=== PATIENT | male | born 1940 | race Caucasian/White ===

== ENCOUNTER → 2017-05-02 07:46 | Outpatient (CLI) | payer MEDICARE, SELFPAY ==
[2017-05-02 08:39] LABS: AST(SGOT) 20 U/L (15-37); Alanine Aminotransfer ALT/SGPT 21 U/L (16-61); Albumin, Serum 3.5 g/dL (3.2-5.0); Alkaline Phosphatase 74 U/L (45-117); Bilirubin, Direct 0.33 mg/dL (0.00-0.30); Cholesterol 150 mg/dL (200); Globulin 3.5 g/dL (2.2-4.2); High Density Lipoprotein 48 mg/dL; Triglycerides 180 mg/dL; Very Low Density Lipoprotein 36 mg/dL (5-40)
== END ==
PROVIDERS: Family Provider Internal Medicine; PCP Internal Medicine; Visit Provider Internal Medicine Cardiovascular Disease
DX: E78.5 Hyperlipidemia, unspecified (principal); Z79.899 Other long term (current) drug therapy
CPT/HCPCS: 36415; 80061; 80076

== ENCOUNTER → 2017-11-13 07:31 | Outpatient (CLI) | payer MEDICARE, SELFPAY ==
[2017-11-13 09:10] LABS: AST(SGOT) 18 U/L (15-37); Alanine Aminotransfer ALT/SGPT 20 U/L (16-61); Albumin, Serum 3.4 g/dL (3.2-5.0); Alkaline Phosphatase 71 U/L (45-117); Cholesterol 145 mg/dL (200); Globulin 3.4 g/dL (2.2-4.2); High Density Lipoprotein 45 mg/dL; Protein, Total 6.8 g/dL (6.4-8.2); Triglycerides 236 mg/dL; Very Low Density Lipoprotein 47 mg/dL (5-40)
== END ==
PROVIDERS: Family Provider Internal Medicine; PCP Internal Medicine; Visit Provider Internal Medicine Cardiovascular Disease
DX: E78.5 Hyperlipidemia, unspecified (principal); Z79.899 Other long term (current) drug therapy
CPT/HCPCS: 36415; 80061; 80076

== ENCOUNTER → 2018-05-08 06:22 | Outpatient (CLI) | payer MEDICARE, SELFPAY ==
[2017-11-16 09:08] VITALS: BMI 27.4
[2018-05-08 08:46] LABS: AST(SGOT) 21 U/L (15-37); Alanine Aminotransfer ALT/SGPT 22 U/L (16-61); Albumin, Serum 3.6 g/dL (3.2-5.0); Alkaline Phosphatase 71 U/L (45-117); Bilirubin, Direct 0.34 mg/dL (0.00-0.30); Cholesterol 142 mg/dL (200); Globulin 3.5 g/dL (2.2-4.2); High Density Lipoprotein 46 mg/dL; Protein, Total 7.1 g/dL (6.4-8.2); Triglycerides 159 mg/dL; Very Low Density Lipoprotein 32 mg/dL (5-40)
== END ==
PROVIDERS: Family Provider Internal Medicine; PCP Internal Medicine; Referring Provider Internal Medicine Cardiovascular Disease; Visit Provider Internal Medicine Cardiovascular Disease
DX: E78.5 Hyperlipidemia, unspecified (principal)
CPT/HCPCS: 36415; 80061; 80076

== ENCOUNTER → 2018-11-12 | Outpatient (CLI) | payer MEDICARE, SELFPAY ==
[2017-11-16 09:08] VITALS: BMI 27.4
[2018-11-12 07:44] LABS: AST(SGOT) 25 U/L (15-37); Alanine Aminotransfer ALT/SGPT 23 U/L (16-61); Albumin, Serum 3.4 g/dL (3.2-5.0); Alkaline Phosphatase 69 U/L (45-117); Bilirubin, Direct 0.31 mg/dL (0.00-0.30); Cholesterol 139 mg/dL (200); Globulin 3.4 g/dL (2.2-4.2); High Density Lipoprotein 48 mg/dL; Protein, Total 6.8 g/dL (6.4-8.2); Triglycerides 160 mg/dL; Very Low Density Lipoprotein 32 mg/dL (5-40)
== END | disposition home or self-care (01) ==
LOC: LAB 06:19
PROVIDERS: Family Provider Internal Medicine; PCP Internal Medicine; Referring Provider Internal Medicine Cardiovascular Disease; Visit Provider Internal Medicine Cardiovascular Disease
DX: E78.5 Hyperlipidemia, unspecified (principal)
CPT/HCPCS: 36415; 80061; 80076

== ENCOUNTER → 2019-11-14 06:47 | Outpatient (CLI) | payer MEDICARE, SELFPAY ==
[2018-11-20 08:53] VITALS: BMI 26.9
[2019-11-14 07:50] LABS: AST(SGOT) 21 U/L (15-37); Alanine Aminotransfer ALT/SGPT 20 U/L (16-61); Albumin, Serum 3.6 g/dL (3.2-5.0); Alkaline Phosphatase 69 U/L (45-117); Bilirubin, Direct 0.36 mg/dL (0.00-0.30); Cholesterol 140 mg/dL (200); Globulin 3.3 g/dL (2.2-4.2); High Density Lipoprotein 48 mg/dL; Protein, Total 6.9 g/dL (6.4-8.2); Triglycerides 153 mg/dL; Very Low Density Lipoprotein 31 mg/dL (5-40)
== END ==
PROVIDERS: PCP Internal Medicine; Referring Provider Internal Medicine Cardiovascular Disease; Visit Provider Internal Medicine Cardiovascular Disease
DX: E78.5 Hyperlipidemia, unspecified (principal); E78.00 Pure hypercholesterolemia, unspecified
CPT/HCPCS: 36415; 80061; 80076

== ENCOUNTER 2020-04-16 13:11 | Outpatient (RCR) | payer MEDICARE, SELFPAY ==
[2019-11-21 08:51] VITALS: BMI 26.2
== END 2020-04-16 23:59 ==
LOC: IMMUN 13:11
PROVIDERS: PCP Internal Medicine; Visit Provider Family Medicine
DX: Z23 Encounter for immunization (principal)
CPT/HCPCS: 0011A; 0012A; 91301

== ENCOUNTER → 2020-06-03 07:03 | Outpatient (CLI) | payer MEDICARE, SELFPAY ==
[2019-11-21 08:51] VITALS: BMI 26.2
[2020-06-03 08:21] LABS: AST(SGOT) 24 U/L (15-37); Alanine Aminotransfer ALT/SGPT 22 U/L (16-61); Albumin, Serum 3.6 g/dL (3.2-5.0); Alkaline Phosphatase 70 U/L (45-117); Bilirubin, Direct 0.38 mg/dL (0.00-0.30); Cholesterol 154 mg/dL (200); Globulin 3.3 g/dL (2.2-4.2); High Density Lipoprotein 55 mg/dL; Protein, Total 6.9 g/dL (6.4-8.2); Triglycerides 152 mg/dL; Very Low Density Lipoprotein 30 mg/dL (5-40)
== END ==
PROVIDERS: PCP Internal Medicine; Referring Provider Internal Medicine Cardiovascular Disease; Visit Provider Internal Medicine Cardiovascular Disease
DX: E78.5 Hyperlipidemia, unspecified (principal); E78.00 Pure hypercholesterolemia, unspecified
CPT/HCPCS: 36415; 80061; 80076

== ENCOUNTER → 2020-12-23 06:37 | Outpatient (CLI) | payer MEDICARE, SELFPAY ==
[2020-12-23 07:16] LABS: AST(SGOT) 21 U/L (15-37); Alanine Aminotransfer ALT/SGPT 22 U/L (16-61); Albumin, Serum 3.4 g/dL (3.2-5.0); Alkaline Phosphatase 72 U/L (45-117); Cholesterol 142 mg/dL (200); Globulin 3.6 g/dL (2.2-4.2); High Density Lipoprotein 53 mg/dL; Triglycerides 117 mg/dL; Very Low Density Lipoprotein 23 mg/dL (5-40)
== END ==
PROVIDERS: PCP Internal Medicine; Referring Provider Internal Medicine Cardiovascular Disease; Visit Provider Internal Medicine Cardiovascular Disease
DX: E78.00 Pure hypercholesterolemia, unspecified (principal); E78.5 Hyperlipidemia, unspecified
CPT/HCPCS: 36415; 80061; 80076

== ENCOUNTER 2021-07-01 06:17 | Outpatient (CLI) | payer MEDICARE, SELFPAY ==
[2021-07-01 07:37] LABS: AST(SGOT) 23 U/L (15-37); Alanine Aminotransfer ALT/SGPT 20 U/L (16-61); Albumin, Serum 3.6 g/dL (3.2-5.0); Alkaline Phosphatase 68 U/L (45-117); Bilirubin, Direct 0.31 mg/dL (0.00-0.30); Cholesterol 151 mg/dL (200); Globulin 3.6 g/dL (2.2-4.2); High Density Lipoprotein 48 mg/dL; Protein, Total 7.2 g/dL (6.4-8.2); Triglycerides 156 mg/dL; Very Low Density Lipoprotein 31 mg/dL (5-40)
== END 2021-07-01 23:59 | disposition home or self-care (01) ==
LOC: LAB 06:19
PROVIDERS: PCP Internal Medicine; Referring Provider Internal Medicine Cardiovascular Disease; Visit Provider Internal Medicine Cardiovascular Disease
DX: E78.00 Pure hypercholesterolemia, unspecified (principal); E78.5 Hyperlipidemia, unspecified
CPT/HCPCS: 36415; 80061; 80076

== ENCOUNTER → 2021-12-23 | Outpatient (CLI) | payer MEDICARE, SELFPAY ==
[2021-12-23 07:42] LABS: AST(SGOT) 19 U/L (15-37); Alanine Aminotransfer ALT/SGPT 20 U/L (16-61); Albumin, Serum 3.4 g/dL (3.2-5.0); Alkaline Phosphatase 63 U/L (45-117); Bilirubin, Direct 0.29 mg/dL (0.00-0.30); Cholesterol 144 mg/dL (200); Globulin 3.5 g/dL (2.2-4.2); High Density Lipoprotein 49 mg/dL; Protein, Total 6.9 g/dL (6.4-8.2); Triglycerides 164 mg/dL; Very Low Density Lipoprotein 33 mg/dL (5-40)
== END | disposition home or self-care (01) ==
LOC: LAB 06:54
PROVIDERS: PCP Internal Medicine; Referring Provider Internal Medicine Cardiovascular Disease; Visit Provider Internal Medicine Cardiovascular Disease
DX: E78.00 Pure hypercholesterolemia, unspecified (principal)
CPT/HCPCS: 36415; 80061; 80076

== ENCOUNTER → 2022-01-18 | Outpatient (CLI) | payer MEDICARE, SELFPAY ==
--- NOTE | 2022-01-18 17:02 | STRESSREP_ITS ---
Stress Test Report Exercise myocardial perfusion stress test. 81-year-old man with a history of coronary artery disease. Stress protocol: Resting EKG demonstrates normal sinus rhythm with a right bundle branch block pattern. Rate of 70 bpm is noted. Resting blood pressure is 122/68 mmHg. Patient exercised according to the regular Renan protocol for total duration of 7 minutes. Patient completed 1 minute into stage III of the Renan protocol the maximum heart rate attained was 148 bpm which was 108% of max impacted heart rate the maximum workload was 10.1 metabolic equivalents. The test was terminated due to the target heart rate being achieved. At rest there were no ST changes noted to suggest ischemia at peak exercise upsloping ST changes approximately 0.7 mm were noted in the inferior lateral leads not denoting any evidence of ischemia. The peak blood pressure was 148/60 mmHg with a rate- pressure product of 20,500. Myocardial perfusion protocol. 14.5 mCi of technetium 99m sestamibi was injected at rest. The patient exercised according to regular Renan protocol for 7 minutes and at peak exercise 44.1 mCi of technetium 99m sestamibi was injected stress images were obtained stress and rest images were reconstructed and compared in the short axis vertical long and horizontal long axis. Gated images were also obtained. Perfusion SPECT analysis: Review of the stress images demonstrate normal uptake of tracer noted in all areas of the myocardium. The resting images similar demonstrate normal uptake of tracer noted in all areas of the myocardium no areas of reversibility are noted to suggest ischemia and no previous infarct is noted. Gated SPECT analysis: The gated ejection fraction is noted to be 78%. Conclusion: Normal exercise myocardial perfusion stress test at a high workload. Excellent functional capacity. Preserved ejection fraction.
== END | disposition home or self-care (01) ==
LOC: CVS 06:52
PROVIDERS: PCP Internal Medicine; Referring Provider Internal Medicine Cardiovascular Disease; Visit Provider Internal Medicine Cardiovascular Disease
DX: I25.10 Atherosclerotic heart disease of native coronary artery without angina pectoris (principal)
CPT/HCPCS: 78452; 93017; A9500; A4216

== ENCOUNTER → 2022-07-20 | Outpatient (CLI) | payer MEDICARE, SELFPAY ==
[2022-07-20 08:04] LABS: AST(SGOT) 21 U/L (15-37); Alanine Aminotransfer ALT/SGPT 20 U/L (16-61); Albumin, Serum 3.4 g/dL (3.2-5.0); Alkaline Phosphatase 66 U/L (45-117); Cholesterol 132 mg/dL (200); Globulin 3.3 g/dL (2.2-4.2); High Density Lipoprotein 46 mg/dL; Protein, Total 6.7 g/dL (6.4-8.2); Triglycerides 126 mg/dL; Very Low Density Lipoprotein 25 mg/dL (5-40)
== END | disposition home or self-care (01) ==
LOC: LAB 06:33
PROVIDERS: PCP Internal Medicine; Referring Provider Internal Medicine Cardiovascular Disease; Visit Provider Internal Medicine Cardiovascular Disease
DX: E78.00 Pure hypercholesterolemia, unspecified (principal)
CPT/HCPCS: 36415; 80061; 80076

== ENCOUNTER 2022-08-08 15:50 | Emergency (ER) | payer MEDICARE, SELFPAY ==
[2022-08-08 15:52] VITALS: BP 145/67; PULSE 81; RESP 14; TEMP 36.4; O2SAT 93; BMI 25.6
--- NOTE | 2022-08-08 15:58 | EX.ED.DYSGE1 ---
HPI History of Present Illness Chief Complaint: Nosebleed [facility] Medical History Atherosclerosis of coronary artery of [place] heart without angina pectoris Essential (primary) hypertension History of non-ST elevation myocardial infarction (NSTEMI) (04/24/12) HLD (hyperlipidemia) Home Medications aspirin 81 mg tablet,delayed release 81 mg PO DAILY 05/18/16 [History Last Taken Unknown] hydrochlorothiazide 12.5 mg capsule 12.5 mg PO DAILY 05/18/16 [History Last Taken Unknown] lisinopril 5 mg tablet 5 mg PO DAILY 05/18/16 [History Last Taken Unknown] omeprazole magnesium 20 mg tablet,delayed release 20 mg PO DAILY 05/18/16 [History Last Taken Unknown] fexofenadine 180 mg tablet (Allergy Relief (fexofenadine)) 180 mg PO DAILY 11/16/17 [History Last Taken Unknown] gabapentin 300 mg capsule 300 mg PO DAILY 11/16/17 [History Last Taken Unknown] tamsulosin 0.4 mg capsule 0.4 mg PO DAILY #90 caps 11/20/18 [History Last Taken Unknown] alpha lipoic acid 50 mg capsule 50 mg PO DAILY 11/21/19 [History Last Taken Unknown] glucosamine sulfate 500 mg tablet (Glucosamine) 1,000 mg PO DAILY 11/21/19 [History Last Taken Unknown] multivitamin 1 tab PO DAILY 11/21/19 [History Last Taken Unknown] sildenafil (pulm.hypertension) 20 mg tablet 20 mg PO DAILY PRN 11/21/19 [History Last Taken Unknown] antiarthritic combination no.2 900 mg tablet (glucosamine-chondroitin) 900 mg PO DAILY 12/31/20 [History Last Taken Unknown] nitroglycerin 0.4 mg sublingual tablet 0.4 mg sublingual Q5-15M #25 tabs 10/26/21 [Rx Last Taken Unknown] fluticasone propionate 50 mcg/actuation nasal spray,suspension 2 spray intranasal DAILY PRN 12/30/21 [History Last Taken Unknown] omeprazole 20 mg capsule,delayed release 20 mg PO DAILY 12/30/21 [History Last Taken Unknown] clopidogrel 75 mg tablet See Rx Instructions .Route .COMPLEX #90 tabs 02/21/22 [Rx Last Taken Unknown] pravastatin 40 mg tablet See Rx Instructions .Route .COMPLEX #90 tabs 02/21/22 [Rx Last Taken Unknown] metoprolol tartrate 50 mg tablet 50 mg PO BID #180 tabs 04/28/22 [Rx Last Taken Unknown] Allergy/AdvReac Type Severity Reaction Status Date / Time cat dander Allergy Anaphylaxis Verified 08/08/22 15:53 tree and shrub pollen Allergy Shortness Verified 08/08/22 15:53 of breath Family History Sister Diabetes Surgical History History of coronary artery stent placement (04/24/12) Social History Smoking Status: Never smoker EXAM Physical Exam Const Vital Signs: 08/08/22 15:52 08/08/22 16:58 Temperature 97.5 F L Temperature Source Temporal Pulse Rate 81 79 Respiratory Rate 14 16 Blood Pressure 145/67 H 142/64 H Blood Pressure Mean 93 90 Pulse Ox 93 97 Oxygen Delivery Method Room Air Room Air [facility] Narrative Medical decision making narrative: HISTORY OF PRESENT ILLNESS: 82-year-old male here for epistaxis. The patient states this started 1 hour ago. States on aspirin and Plavix. He further states he tried to hold pressure without success. REVIEW OF SYSTEMS: Pertinent positives: Epistaxis Pertinent negatives: Dizziness, lightheadedness, chest pain, fatigue PHYSICAL EXAM: Nursing triage notes reviewed, Vital signs reviewed Constitutional: please see [facility] HENT: MMM, profuse bleeding noted from the left nares. No bleeding noted from the right nares. No obvious clots in the back of the throat. Eyes: Pupils equal round and reactive to light, Extraocular muscles intact Neck: No stridor, no JVD, full neck ROM Lungs: Clear to auscultation, No wheezing or rales. No increased work of breathing, no conversational dyspnea, no accessory muscle use, no nasal flaring. No respiratory distress noted Heart: Regular rate and rhythm, No murmurs, No rubs and No gallops, 2+ distal pulses (radial, femoral, posterior tibial) in all extremities MEDICAL DECISION MAKING: Chief Complaint: Epistaxis External records reviewed: On aspirin and Plavix, last hemoglobin 15.[address] [facility] Narrative: Patient was initially hemodynamically stable, afebrile, nontoxic-appearing. Initially tried to hold pressure for 10 minutes along with nasal suctioning. This failed. Attempt to apply Afrin which failed. I then applied a Rhino Rocket with successful hemostasis. CBC was checked given history of CAD. CBC showed no evidence of anemia I called our local [employer] Dr. Esteban who agreed he can see the patient on , 08/11/2022. Patient was given follow-up instructions and return precautions. Factors affecting care: History of hypertension, hyperlipidemia, CAD on aspirin Plavix Social determinants of health: Elderly History obtained from others: The patient's Shared decision making: I will have a discussion with the patient and or visitors regarding risk/benefits of further testing or admission. They will be made aware of of the risk/benefits inherent in this decision they will be given the opportunity to voice understanding. Consults: Otolaryngology Lab Data Attestation: I reviewed the patient's lab results. Lab results narrative: CBC with leukocytosis suggestive of systemic inflammation, no anemia, no thrombocytopenia. Labs: Laboratory Results - last 24 hr 08/08/22 16:55 WBC 12.0 H RBC 4.69 Hgb 15.2 Hct 44.1 MCV 94.0 MCH 32.4 H MCHC 34.5 RDW Std Deviation 42.5 RDW Coeff of Rachel 12.4 Plt Count 166 MPV 12.0 Immature Gran % (Auto) 0.200 Neut % (Auto) 79.5 H Lymph % (Auto) 13.2 L [place] % (Auto) 4.8 Eos % (Auto) 1.7 Baso % (Auto) 0.6 Absolute Neuts (auto) 9.5 H Absolute Lymphs (auto) 1.58 Nucleated RBC % 0 Discharge Plan Triage Chief Complaint: Nosebleed ED Provider: Nestor Jackson Dx/Rx/DC Orders Clinical Impression: Epistaxis, Adverse effect of antiplatelet agent Prescriptions: No Action fexofenadine [Allergy Relief (fexofenadine)] 180 mg tablet 180 mg PO DAILY gabapentin 300 mg capsule 300 mg PO DAILY tamsulosin 0.4 mg capsule 0.4 mg PO DAILY Qty: 90 sildenafil (pulm.hypertension) 20 mg tablet 20 mg PO DAILY PRN Label Comments: take 2 to 3 tablets by mouth once daily if needed multivitamin Tablet 1 tab PO DAILY alpha lipoic acid 50 mg capsule 50 mg PO DAILY glucosamine sulfate [Glucosamine] 500 mg tablet 1,000 mg PO DAILY Rx Instructions: administer with meals glucosamine-chondroitin 900 mg tablet 900 mg PO DAILY omeprazole 20 mg capsule,delayed release(DR/EC) 20 mg PO DAILY fluticasone propionate 50 mcg/actuation spray,suspension 2 spray intranasal DAILY PRN aspirin 81 MG tablet,delayed release (DR/EC) 81 mg PO DAILY Label Comments: heart health hydrochlorothiazide 12.5 MG capsule 12.5 mg PO DAILY Label Comments: water pill/diuretic lisinopril 5 MG tablet 5 mg PO DAILY Label Comments: blood pressure omeprazole magnesium 20 MG tablet,delayed release (DR/EC) 20 mg PO DAILY Label Comments: acid reflux nitroglycerin 0.4 mg tablet, sublingual 0.4 mg SUBLINGUAL Q5-15M Qty: 25 3RF pravastatin 40 mg tablet See Rx Instructions .ROUTE .COMPLEX Qty: 90 3RF Dose Instruction: TAKE 1 TABLET AT BEDTIME Rx Instructions: TAKE 1 TABLET AT BEDTIME clopidogrel 75 mg tablet See Rx Instructions .ROUTE .COMPLEX Qty: 90 3RF Dose Instruction: TAKE 1 TABLET DAILY Rx Instructions: TAKE 1 TABLET DAILY metoprolol tartrate 50 mg tablet 50 mg PO BID Qty: 180 3RF Primary Care Provider: Giovanni Persaud Referrals: Jose Raul Esteban MD [Med Staff - Active Staff] - Activity Restrictions/Additional Instructions: Thank you for trusting us with your care today! Please take Tylenol (2 pills, 650 mg), as needed for pain and fever control. Please return if bleeding is uncontrolled. Please follow-up with Dr. Horton. A local quantitative research analyst. His information has been provided. I spoke with him on the phone and he states he can see you on , 08/11/2022. Please call tomorrow for an appointment. Please state that you had nasal packing and like to be seen for reevaluation. Please return to the emergency department if your symptoms change or worsen. Please follow with your primary care physician for further outpatient evaluation and management. Disposition Disposition: Home, Self Care Discharge Date/Time: 08/08/22 17:34
[2022-08-08] MEDS: Oxymetazoline 0.05% 1 SPRAY SPRAY.BTL NASAL (16:25)
[2022-08-08] MEDS: Lidocaine/Epi/Tetracaine 50 ML 1 APPLIC TOPICAL (16:25)
[2022-08-08 16:58] VITALS: BP 142/64; PULSE 79; RESP 16; O2SAT 97
[2022-08-08 17:03] LABS: Absolute Lymphocyte Count 1.58 X10^3/uL (0.83-4.51); Absolute Neutrophil Count 9.5 X10^3/uL (2.0-7.7); Basophil# 0.07 X10^3/uL; Basophil% 0.6 % (0-1); Eosinophil# 0.21 X10^3/uL; Eosinophils% 1.7 % (0-5); Hematocrit 44.1 % (40-54); Hemoglobin 15.2 g/dL (13.0-16.5); Lymphocyte # 1.58 X10^3/ul (0.83-4.51); Lymphocyte % 13.2 % (19-41); Mean Corp Hgb Conc 34.5 g/dL (32-36); Mean Corpuscular Hgb 32.4 pg (27.0-32.0); Monocyte# 0.58 X10^3/uL; Monocyte% 4.8 % (0-10); NRBC Flagged by Analyzer 0 % (0-5); Neutrophil # 9.54 X10^3/uL (2.7-7.7); Neutrophil % 79.5 % (47-70); Platelet Count 166 K/mm3 (150-450); RBC Distribution Width CV 12.4 % (11.6-14.6); RBC Distribution Width SD 42.5 fl (35.1-43.9); Red Blood Count 4.69 M/mm3 (4.6-6.2)
== END 2022-08-08 17:34 | disposition home or self-care (01) ==
PROVIDERS: Emergency Provider Emergency Medicine; PCP Internal Medicine; Visit Provider Emergency Medicine
DX: R04.0 Epistaxis (principal); T45.525A Adverse effect of antithrombotic drugs, initial encounter; I25.10 Atherosclerotic heart disease of native coronary artery without angina pectoris; E78.5 Hyperlipidemia, unspecified; I10 Essential (primary) hypertension; Z79.82 Long term (current) use of aspirin; Z79.899 Other long term (current) drug therapy; I25.2 Old myocardial infarction; Z79.02 Long term (current) use of antithrombotics/antiplatelets
CPT/HCPCS: 30901; 85025; 99282

== ENCOUNTER 2023-05-29 08:35 | Emergency (ER) | payer MEDICARE, SELFPAY ==
[2023-05-29] VITALS (10 sets, daily range): BP systolic 79–125; BP diastolic 51–84; PULSE 76–81; RESP 14–18; TEMP 36.2–36.8; O2SAT 92–98; BMI 26.2
[2023-05-29 09:32] LABS: Absolute Lymphocyte Count 0.62 X10^3/uL (0.83-4.51); Absolute Neutrophil Count 16.3 X10^3/uL (2.0-7.7); Basophil# 0.06 X10^3/uL; Basophil% 0.3 % (0-1); Hematocrit 42.2 % (40-54); Hemoglobin 14.1 g/dL (13.0-16.5); Lymphocyte # 0.62 X10^3/ul (0.83-4.51); Lymphocyte % 3.4 % (19-41); Mean Corp Hgb Conc 33.4 g/dL (32-36); Mean Corpuscular Hgb 31.6 pg (27.0-32.0); Mean Corpuscular Volume 94.6 fL (80-94); Mean Platelet Vol. 12.1 fl (6.2-12.0); Monocyte# 1.28 X10^3/uL; Monocyte% 6.9 % (0-10); NRBC Flagged by Analyzer 0 % (0-5); Neutrophil % 88.4 % (47-70); Platelet Count 124 K/mm3 (150-450); RBC Distribution Width CV 13.1 % (11.6-14.6); RBC Distribution Width SD 44.7 fl (35.1-43.9); Red Blood Count 4.46 M/mm3 (4.6-6.2); White Blood Count 18.4 K/mm3 (4.4-11.0)
--- NOTE | 2023-05-29 09:43 | EDS_ITS ---
HPI HPI - GI History of Present Illness Chief Complaint: Abd Pain Detail of Chief Complaint: Right upper quadrant abdominal pain that has migrated to the right and left Informant: patient Abdominal Pain/Flank Pain Onset: Days (Onset May 25.) Context: Sudden Onset Timing: Continuous (Initially he reports it to be constant. He now is not having pain.) Quality: - (Discomfort) Location: RLQ and LLQ Current Severity: Gone Maximum Severity: Moderate Worsened by: Movement Relieved by: Nothing Nausea/Vomiting/Emesis GI Symptom: Positive for Nausea Diarrhea/Melena/Hematochezia GI Symptom: Positive for - (Patient does report change in consistency and size of his stool over the past several weeks.); Negative for Diarrhea, Melena or Hematochezia Associated Symptoms Associated Symptoms: Positive for - (Patient denies any pain in his groin or inguinal area. He denies history of hernia.); Negative for Dysuria, Frequency, Hematuria or Urgency Narrative Narrative: Patient is an 83-year-old male. He presents with initially pain that was in the right upper quadrant right costal margin region that migrated to the right and left lower quadrant. He initially was in chair sitting next of his . At that time he had no discomfort. He denied radiation. He denied urologic symptoms. He denied fever, chills night sweats. He does report change in consistency and size of his stool recently. He denies night sweats or weight loss. Pain did start after he had a peanut butter jelly sandwich made by smokers and a peanut butter granola bar. He denies chest discomfort, shortness of breath, dyspnea on exertion. He denies orthopnea or PND. Patient's had no abdominal surgery. There is no history of renal or ureteral lithiasis. Patient has not noted a rash. Movement of apparently precipitates it today. Of note patient is not a good informant. Prior similar symptoms: Yes (A while ago. States it was not as bad.) Recent Illness/Hospitalization: No [facility] Medical History Atherosclerosis of coronary artery of [place] heart without angina pectoris Essential (primary) hypertension History of non-ST elevation myocardial infarction (NSTEMI) (04/24/12) HLD (hyperlipidemia) Home Medications aspirin 81 mg tablet,delayed release 81 mg PO DAILY 05/18/16 [History Last Taken Unknown] hydrochlorothiazide 12.5 mg capsule 12.5 mg PO DAILY 05/18/16 [History Last Taken Unknown] lisinopril 5 mg tablet 5 mg PO DAILY 05/18/16 [History Last Taken Unknown] omeprazole magnesium 20 mg tablet,delayed release 20 mg PO DAILY 05/18/16 [History Last Taken Unknown] fexofenadine 180 mg tablet (Allergy Relief (fexofenadine)) 180 mg PO DAILY 11/16/17 [History Last Taken Unknown] gabapentin 300 mg capsule 300 mg PO DAILY 11/16/17 [History Last Taken Unknown] tamsulosin 0.4 mg capsule 0.4 mg PO DAILY #90 caps 11/20/18 [History Last Taken Unknown] alpha lipoic acid 50 mg capsule 50 mg PO DAILY 11/21/19 [History Last Taken Unknown] glucosamine sulfate 500 mg tablet (Glucosamine) 1,000 mg PO DAILY 11/21/19 [History Last Taken Unknown] multivitamin 1 tab PO DAILY 11/21/19 [History Last Taken Unknown] sildenafil (pulm.hypertension) 20 mg tablet 20 mg PO DAILY PRN 11/21/19 [History Last Taken Unknown] antiarthritic combination no.2 900 mg tablet (glucosamine-chondroitin) 900 mg PO DAILY 12/31/20 [History Last Taken Unknown] nitroglycerin 0.4 mg sublingual tablet 0.4 mg sublingual Q5-15M #25 tabs 10/26/21 [Rx Last Taken Unknown] fluticasone propionate 50 mcg/actuation nasal spray,suspension 2 spray intranasal DAILY PRN 12/30/21 [History Last Taken Unknown] omeprazole 20 mg capsule,delayed release 20 mg PO DAILY 12/30/21 [History Last Taken Unknown] clopidogrel 75 mg tablet See Rx Instructions .Route .COMPLEX #90 tabs 02/21/22 [Rx Last Taken Unknown] metoprolol tartrate 50 mg tablet 50 mg PO BID #180 tabs 04/28/22 [Rx Last Taken Unknown] pravastatin 40 mg tablet 40 mg PO DAILY #90 tabs 02/13/23 [Rx Last Taken Unknown] Allergy/AdvReac Type Severity Reaction Status Date / Time cat dander Allergy Anaphylaxis Verified 05/29/23 08:36 tree and shrub pollen Allergy Shortness Verified 05/29/23 08:36 of breath Family History Sister Diabetes Surgical History History of coronary artery stent placement (04/24/12) Social History (Updated 05/29/23 @ 09:[address] Best Simon MD) household members: spouse Smoking Status: Never smoker ROS ROS ED Constitutional Constitutional ED: Denies chills, fever(s), subjective or sweats ENT ENT ED: Denies ear pain, rhinorrhea or sore throat Cardiovascular Cardiovascular: Denies chest pain, orthopnea, palpitations or paroxysmal nocturnal dyspnea Respiratory/Chest Respiratory/Chest: Denies cough, dyspnea, dyspnea on exertion, orthopnea or paroxysmal nocturnal dyspnea Gastrointestinal Gastrointestinal: Reports abdominal pain and nausea; Denies constipation, diarrhea, melena or vomiting Genitourinary Genitourinary ED: Denies dysuria, hematuria or urinary frequency Musculoskeletal Musculoskeletal: Denies arthralgias, back pain, myalgias or neck pain Integumentary Denies rash Neurologic Neurologic: Denies paresthesias or weakness Psychiatric Psychiatric: Denies anxiety Hematologic/Lymphatic Hematologic/Lymphatic: Denies easy bleeding or easy bruising EXAM Physical Exam Const Vital Signs: 05/29/23 08:38 05/29/23 12:30 Temperature 97.1 F L Temperature Source Temporal Pulse Rate 80 78 Respiratory Rate 14 16 Blood Pressure 121/63 H 120/55 L Blood Pressure Mean 82 76 Pulse Ox 98 92 Oxygen Delivery Method Room Air Room Air Positive well nourished and well developed General Appearance ED: well developed, NAD and pallor HEENT Reports moist mucous membranes HEENT Narrative: Poor dentition. Posterior pharynx out erythema or exudate. normocephalic and atraumatic Eyes PERRL and EOMs intact bilaterally General Eye ED: Negative for pale conjunctiva or scleral icterus Neck no lymphadenopathy, supple and no JVD Resp normal respiratory effort and clear to auscultation bilaterally Cardio regular rate, regular rhythm, S1 normal heart sound, S2 normal heart sound and no murmurs GI no masses; Negative for non-tender or non-distended GI Narrative: There is slight tympany to percussion right upper and left upper quadrant. There is no shifting dullness or fluid wave. Bowel sounds are normal. There is no palpable or pulsatile mass. There is no abdominal bruit. Patient had area of discomfort right lateral aspect of the abdomen. This was not consistently reproducible. There is no inguinal lymphadenopathy or inguinal mass noted. Back/Spine no CVA tenderness Thoracic Spine / Upper Back: Negative for thoracic spinal tenderness Lumbar Spine / Lower Back: Negative for lumbar spinal tenderness Extremity full ROM General Extremety ED: Yes edema; Negative for tenderness General Extremity: edema Neuro CN's II-XII intact bilaterally, moves all extremities, no sensory deficits noted and gait normal Sensorium / Orientation: alert Psych Psych Narrative: Affect is flat. Skin no wounds General Skin Exam: pallor; Negative for jaundice Lesions: no lesions Rashes: no rashes MDM MDM MDM Narrative Medical decision making narrative: Differential diagnosis is abdominal pain of unknown etiology, biliary disease, obstipation, atypical presentation for appendicitis or cholecystitis. Will obtain CBC, competence of metabolic panel and UA to assess his symptoms since they are somewhat vague. Lab Data Attestation: I reviewed the patient's lab results. Lab results narrative: White count is elevated 18.4 thousand with shift. Indices are normal as well as H&H. Since patient has vague abdominal pain with some mild discomfort in the right side with leukocytosis will obtain CT of the abdomen pelvis with IV contrast if BUN and creatinine are normal otherwise will obtain CT of the abdomen and pelvis without contrast. Labs: Laboratory Results - last 24 hr 05/29/23 05/29/23 09:20 11:49 WBC 18.4 H RBC 4.46 L Hgb 14.1 Hct 42.2 MCV 94.6 H MCH 31.6 MCHC 33.4 RDW Std Deviation 44.7 H RDW Coeff of Rachel 13.1 Plt Count 124 L MPV 12.1 H Immature Gran % (Auto) 1.000 H Neut % (Auto) 88.4 H Lymph % (Auto) 3.4 L [place] % (Auto) 6.9 Eos % (Auto) 0.0 Baso % (Auto) 0.3 Absolute Neuts (auto) 16.3 H Absolute Lymphs (auto) 0.62 L Nucleated RBC % 0 Sodium 136 Potassium 4.3 Chloride 107 Carbon Dioxide 25.0 Anion Gap 4 L BUN 27 H Creatinine 1.49 H Estim Creat Clear Calc 39.78 Est GFR (MDRD) Af Amer 58 L Est GFR (MDRD) Non-Af 48 L BUN/Creatinine Ratio 18.1 Glucose 175 H Calcium 9.5 Total Bilirubin 2.60 H AST 20 ALT 16 Alkaline Phosphatase 84 Total Protein 6.5 Albumin 2.7 L Globulin 3.8 Albumin/Globulin Ratio 0.7 L Urine Color Yellow Urine Clarity Sl. Cloudy Urine pH 5.0 Ur Specific [place] 1.020 Urine Protein 30 H Urine Glucose (UA) Normal Urine Ketones Negative Urine Occult Blood 50 H Urine Nitrite Negative Urine Bilirubin Negative Urine Urobilinogen Normal Ur Leukocyte Esterase 25 H Urine RBC 0-5 SEEN Urine WBC 0-5 SEEN Ur Squamous Epith Cells 0-5 SEEN Urine Bacteria 1+ Urine Mucus 0 SEEN Patient's creatinine is elevated 1.49. Since bilirubin is elevated and initially had right upper quadrant pain will obtain ultrasound of the gallbladder initially. If this does not delineate cause of patient's symptoms will obtain CT of the abdomen. Radiography Diagnostic Testing: Clinical Impression(s) from Imaging Studies Gallbladder Ultrasound 05/29/23 10:17 IMPRESSION: 1. Mild pericholecystic fluid without evidence of gallstones or biliary dilatation. 2. Hepatic steatosis. Electronically Signed: Reji Greene MD at 11:55 EST , Abdomen/Pelvis CT 05/29/23 13:03 IMPRESSION: 1. Right lower lobe infiltrate and atelectatic changes. Small right pleural effusion. 2. Dilated gallbladder with pericholecystic edema without evidence of gallstones. Correlation with gallbladder ultrasound might be of value. 3. Diverticulosis without evidence of acute diverticulitis. 4. Hepatic steatosis with heterogeneous inferior right lower lobe difficult to characterize at this time. 5. Enlarged prostate. Correlation with PSA level is recommended. Electronically Signed: Reji Greene MD at 13:48 EST , Ultrasound per my review reveals pericholecystic fluid. There is no stones noted. There is no thickening of the gallbladder wall. Common bile duct is within normal size. Awaiting formal read by radiologist. Management Discussion w/another healthcare provider: Crematory Operator (Case was discussed with Dr. Wright. She requested a CAT scan and call back after CAT scan has been performed and interpreted.) Treatment and Re-Evaluation :: Radiologist interpretation was read. Since patient has a white count there is pericholecystic fluid the surgeon on-call Dr. Wright was paged. Will order Zosyn. Since patient has pericholecystic fluid and elevated white count. Dr. Wright informed me at 1350 the patient will need transfer since he is on Plavix and needs a tube placed. Apparently Dr. Moody the interventional radiologist is out for the entire week. Patient states she has been at [facility] in the past and had stents placed for his heart. will contact their transfer line. Since patient also has an infiltrate in the right lower lobe will order azithromycin for atypical coverage. Spoke with Antonieta at the [facility] transfer line. She states she will reach out to [facility]. Patient was accepted by Dr. Rosales at [facility]. Patient and were informed that there were no beds available at [facility] and that he would be transferred to [facility] which is affiliated with the [facility]. Discharge Plan Triage Chief Complaint: Abd Pain ED Provider: Best Simon Dx/Rx/DC Orders Clinical Impression: Acute acalculous cholecystitis, Atherosclerosis of coronary artery of [place] heart without angina pectoris, HLD (hyperlipidemia), Essential (primary) hypertension, Infiltrate of lower lobe of right lung present on imaging study, terminologist current use of antithrombotics/antiplatelets Prescriptions: No Action fexofenadine [Allergy Relief (fexofenadine)] 180 mg tablet 180 mg PO DAILY gabapentin 300 mg capsule 300 mg PO DAILY tamsulosin 0.4 mg capsule 0.4 mg PO DAILY Qty: 90 sildenafil (pulm.hypertension) 20 mg tablet 20 mg PO DAILY PRN Patient Comments: take 2 to 3 tablets by mouth once daily if needed multivitamin Tablet 1 tab PO DAILY alpha lipoic acid 50 mg capsule 50 mg PO DAILY glucosamine sulfate [Glucosamine] 500 mg tablet 1,000 mg PO DAILY Rx Instructions: administer with meals glucosamine-chondroitin 900 mg tablet 900 mg PO DAILY omeprazole 20 mg capsule,delayed release(DR/EC) 20 mg PO DAILY fluticasone propionate 50 mcg/actuation spray,suspension 2 spray intranasal DAILY PRN aspirin 81 MG tablet,delayed release (DR/EC) 81 mg PO DAILY Patient Comments: heart health hydrochlorothiazide 12.5 MG capsule 12.5 mg PO DAILY Patient Comments: water pill/diuretic lisinopril 5 MG tablet 5 mg PO DAILY Patient Comments: blood pressure omeprazole magnesium 20 MG tablet,delayed release (DR/EC) 20 mg PO DAILY Patient Comments: acid reflux nitroglycerin 0.4 mg tablet, sublingual 0.4 mg SUBLINGUAL Q5-15M Qty: 25 3RF clopidogrel 75 mg tablet See Rx Instructions .ROUTE .COMPLEX Qty: 90 3RF Dose Instruction: TAKE 1 TABLET DAILY Rx Instructions: TAKE 1 TABLET DAILY metoprolol tartrate 50 mg tablet 50 mg PO BID Qty: 180 3RF pravastatin 40 mg tablet 40 mg PO DAILY Qty: 90 3RF Primary Care Provider: Giovanni Persaud Referrals: Giovanni Persaud MD [Primary Care Provider] -
[2023-05-29 09:57] LABS: ALB/GLOB Ratio 0.7 RATIO (0.9-2.4); AST(SGOT) 20 U/L (15-37); Alanine Aminotransfer ALT/SGPT 16 U/L (16-61); Albumin, Serum 2.7 g/dL (3.2-5.0); Alkaline Phosphatase 84 U/L (45-117); Anion Gap 4 (5-15); BUN 27 mg/dL (7-18); BUN/Creat Ratio 18.1 RATIO (10-20); Calcium,Total 9.5 mg/dL (8.5-10.1); Chloride 107 mmol/L (98-107); Creatinine, Serum 1.49 mg/dL (0.70-1.30); EST Glomerular Filtration Rate 48 mL/min (>60); Est Glom Filt Rate - Afr Amer 58 mL/min (>60); Estimated Creatinine Clearance 39.78 ml/min; Globulin 3.8 g/dL (2.2-4.2); Glucose 175 mg/dL (74-106); Potassium 4.3 mmol/L (3.5-5.1); Protein, Total 6.5 g/dL (6.4-8.2); Sodium Level 136 mmol/L (136-145)
--- NOTE | 2023-05-29 10:17 | US_ITS ---
INDICATION: Pain, leukocytosis, elevated bilirubin EXAMINATION: Ultrasound US Abdomen Limited (quadrant) TECHNIQUE: Giles scale and color doppler imaging was performed of the right upper quadrant. COMPARISON: No relevant prior comparison study available FINDINGS: LIVER: There is moderate increased echogenicity. The liver measures about 16.4 cm in length. The portal vein is patent with normal hepatopedal flow. No focal hepatic lesion. The left lobe of the liver is obscured by bowel gas. There is no free fluid. GALLBLADDER AND BILIARY TREE: No shadowing gallstone, pericholecystic fluid or gallbladder wall thickening is demonstrated. The gallbladder wall measures 2.6 mm. Mild pericholecystic fluid. The proximal common bile duct measures 5 mm, which is within normal limits for the patient''s age. Sonographic Ayala''s sign: Negative. PANCREAS: The pancreas is somewhat obscured by bowel gas and not well visualized. RIGHT KIDNEY: The right kidney measures 10.1 cm in length. The renal cortex measures 6 mm. No evidence of hydronephrosis. US/Gallbladder IMPRESSION: 1. Mild pericholecystic fluid without evidence of gallstones or biliary dilatation. 2. Hepatic steatosis. Electronically Signed: Reji Greene MD at 11:55 EST ,
--- OUTSIDE RECORDS SUMMARY | 2023-05-29 10:30 | XMS RPT_ITS | CCD ---
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 Name Role Phone Veronica PARADA, Jalyn Dan Unavailable Unavailable Izabellais Harumi Y Unavailable Unavailable MD Mitch, Lupillo S Unavailable Ethel Falk Unavailable Ethel Falk Unavailable Sakina EDWARDS, Giovanni Gentile Primary Care Provider [phone] Sakina EDWARDS, Giovanni Gentile Primary Care Provider [phone] Sakina EDWARDS, Giovanni Gentile Primary Care Provider [phone] GIOVANNI PRESLEY Primary Care Unavailable RICHARD DOBSON Attending Unavailable SAKINA, GIOVANNI Gentile Referring Unavailable PRESLEY, GIOVANNI Gentile Primary Care Unavailable PRESLEY, GIOVANNI Gentile Referring Unavailable PRESLEY, GIOVANNI Gentile Primary Care Unavailable SAKINA, GIOVANNI Gentile Attending Unavailable SAKINA, GIOVANNI Gentile Referring Unavailable PRESLEY, GIOVANNI Gentile Primary Care Unavailable SAKINA, GIOVANNI Gentile Referring Unavailable PRESLEY, GIOVANNI Gentile Attending Unavailable PRESLEY, GIOVANNI Gentile Primary Care Unavailable PRESLEY, GIOVANNI Gentile Referring Unavailable PRESLEY, GIOVANNI Gentile Primary Care Unavailable SAKINA, GIOVANNI Getnile Attending Unavailable SAKINA, GIOVANNI Gentile Referring Unavailable PRESLEY, GIOVANNI Gentile Primary Care Unavailable PRESLEY, GIOVANNI Gentile Referring Unavailable SAKINA, GIOVANNI Gentile Primary Care Unavailable Allergies Allergy Classification Reported Allergen(s) Allergy Type Date of Onset Reaction(s) Facility (20 sources) Cat; Translations: [CATS] allergy to substance 07-08-2005 [facility] Work Phone: (20 sources) TREES; Translations: [TREES] food allergy 07-08-2005 [facility] Work Phone: Medications Current Medications Medication Drug Class(es) Dates Sig (Normalized) Sig (Original) gabapentin 300 mg oral capsule (20 sources) Anti-epileptic Agent Start: 08-05-2021 End: 11-23-2023 take 1 capsule by mouth twice daily gabapentin (NEURONTIN) 300 mg capsule Indications: Trigeminal neuralgia Take 1 capsule by mouth twice daily. 180 capsule 3 11/23/2022 11/23/2023 Active Completed/Discontinued Medications Medication Drug Class(es) Dates Sig (Normalized) Sig (Original) ascorbic acid 500 mg oral tablet (10 sources) Vitamin C Start: 05-17-2012 End: 02-11-2014 take 1 tablet by mouth once daily VITAMIN C 500 MG TABS One tablet by mouth daily ASCORBIC ACID [id number] Lupillo Meyer MD aspirin 81 mg oral tablet (20 sources) Platelet Aggregation Inhibitor, Nonsteroidal Anti-inflammatory Drug Start: 05-17-2012 take 1 tablet by mouth once daily at mealtime Aspirin 81 mg tab Indications: CAD (coronary artery disease) Take 1 tablet by mouth once daily. Take with food. 30 tablet 11 01/18/2013 Active Problems Active Problems Problem Classification Problem Date Documented Date Episodic/Chronic Chronic kidney disease (20 sources) Chronic kidney disease stage 3; Translations: [CKD (chronic kidney disease) stage 3, GFR 30-59 ml/min] Onset: 08-04-2016 08-04-2016 Chronic Chronic kidney disease (1 source) Chronic kidney disease; Translations: [Stage 3a chronic kidney disease (HCC)] Onset: 08-04-2016 Coronary atherosclerosis and other heart disease (20 sources) Coronary arteriosclerosis; Translations: [Atherosclerotic heart disease of [place] coronary artery without angina pectoris] Onset: 04-23-2012 05-08-2012 Chronic Disorders of lipid metabolism (20 sources) Hyperlipidemia; Translations: [Hyperlipidemia, unspecified] Onset: 04-05-2005 05-08-2012 Chronic Esophageal disorders (20 sources) Gastroesophageal reflux disease; Translations: [Gastro-esophageal reflux disease without esophagitis] Onset: 04-05-2005 04-05-2005 Chronic Essential hypertension (20 sources) Hypertensive disorder; Translations: [Benign essential hypertension] Onset: 04-05-2005 05-08-2012 Chronic Hyperplasia of prostate (20 sources) Benign prostatic hypertrophy with outflow obstruction; Translations: [Benign prostatic hyperplasia with lower urinary tract symptoms] Onset: 06-07-2018 Chronic Other circulatory disease (5 sources) Disorder of carotid artery; Translations: [Occlusion and stenosis of unspecified carotid artery] Onset: 08-20-2013 08-20-2013 Chronic Other male genital disorders (20 sources) Secondary erectile dysfunction; Translations: [Male erectile dysfunction, unspecified] Onset: 07-09-2009 07-09-2009 Chronic Other upper respiratory disease (18 sources) Allergic rhinitis; Translations: [Allergic rhinitis, unspecified] Onset: 04-05-2005 01-22-2015 Chronic Unclassified (2 sources) Placement of stent in coronary artery ; Translations: [Presence of coronary angioplasty implant and graft] Onset: 05-08-2012 11-12-2015 Unclassified (6 sources) Long-term drug therapy; Translations: [Other extermination inspector (current) drug therapy] Onset: 08-15-2012 04-14-2015 Past or Other Problems Problem Classification Problem Date Documented Date Episodic/Chronic Genitourinary symptoms and ill-defined conditions (8 sources) Urinary tract obstruction; Translations: [Obstructive and reflux uropathy, unspecified] Onset: 08-01-2022 08-01-2022 Episodic Joint disorders and dislocations; trauma-related (17 sources) Subluxation of foot joint; Translations: [Subluxation of tarsometatarsal joint of right foot, initial encounter] Onset: 05-31-2017 05-31-2017 Episodic Nonspecific chest pain (5 sources) Other chest pain; Translations: [Other chest pain] Onset: 05-19-2016 05-19-2016 Episodic Other aftercare (4 sources) Other extermination inspector (current) drug therapy; Translations: [Long-term (current) use of other medications] Onset: 08-15-2012 04-14-2015 Episodic Other circulatory disease (5 sources) Carotid bruit; Translations: [Other specified symptoms and signs involving the circulatory and respiratory systems] Onset: 08-20-2013 08-20-2013 Episodic Other diseases of kidney and ureters (7 sources) Hydronephrosis; Translations: [Unspecified hydronephrosis] Onset: 07-11-2022 07-11-2022 Episodic Other diseases of kidney and ureters (1 source) Other obstructive and reflux uropathy; Translations: [BPH with obstruction/lower urinary tract symptoms] Onset: 06-07-2018 Episodic Other nervous system disorders (20 sources) Trigeminal neuralgia; Translations: [Trigeminal neuralgia] Onset: 08-24-2005 08-24-2005 Episodic Other nutritional; endocrine; and metabolic disorders (7 sources) Body mass index (BMI) 29.0-29.9, adult; Translations: [Body mass index (BMI) 27.0-27.9, adult] Onset: 03-07-2013 11-15-2016 Episodic Other nutritional; endocrine; and metabolic disorders (3 sources) Body mass index (BMI) 28.0-28.9, adult; Translations: [Body mass index (BMI) 28.0-28.9, adult] Onset: 03-07-2013 02-11-2014 Episodic Other nutritional; endocrine; and metabolic disorders (3 sources) Body mass index (BMI) 27.0-27.9, adult; Translations: [Body mass index (BMI) 27.0-27.9, adult] Onset: 03-07-2013 03-07-2013 Episodic Other skin disorders (18 sources) Actinic keratosis; Translations: [Actinic keratosis] Onset: 07-04-2006 05-31-2017 Episodic Other skin disorders (18 sources) Seborrheic keratosis; Translations: [Other seborrheic keratosis] Onset: 02-22-2012 02-22-2012 Episodic Unclassified (2 sources) Percutaneous transluminal coronary angioplasty ; Translations: [Coronary angioplasty status] Onset: 05-08-2012 05-08-2012 Results Test Name Value Interpretation Reference Range Facil ity Vital Signs Date Time Vital Sign Value Performing Clinician Facility 05-25-2023 08:31-0500 Body temperature 97.3 [degF] Giovanni Presley MD Work Phone: [facility] 05-25-2023 08:31-0500 Body weight 87.5 kg Giovanni Presley MD Work Phone: [facility] 05-25-2023 08:31-0500 Diastolic blood pressure 66 mm[Hg] Giovanni Presley MD Work Phone: [facility] 05-25-2023 08:31-0500 Heart rate 64 /min Giovanni Presley MD Work Phone: [facility] 05-25-2023 08:31-0500 Respiratory rate 12 /min Giovanni Presley MD Work Phone: [facility] 05-25-2023 08:31-0500 Systolic blood pressure 114 mm[Hg] Giovanni Presley MD Work Phone: [facility] 11-23-2022 08:27-0400 Body height 179.3 cm Giovanni Presley MD Work Phone: [facility] 11-23-2022 08:27-0400 Body weight 84.73 kg Giovanni Presley MD Work Phone: [facility] 11-23-2022 08:27-0400 Diastolic blood pressure 68 mm[Hg] Giovanni Presley MD Work Phone: [facility] 11-23-2022 08:27-0400 Heart rate 56 /min Giovanni Presley MD Work Phone: [facility] 11-23-2022 08:27-0400 Respiratory rate 12 /min Giovanni Presley MD Work Phone: [facility] 11-23-2022 08:27-0400 Systolic blood pressure 122 mm[Hg] Giovanni Presley MD Work Phone: [facility] 06-09-2022 12:03-0400 Diastolic blood pressure 58 mm[Hg] Giovanni Presley MD Work Phone: [facility] 06-09-2022 12:03-0400 Systolic blood pressure 126 mm[Hg] Giovanni Presley MD Work Phone: [facility] 06-09-2022 11:28-0400 Body weight 88 kg Giovanni Presley MD Work Phone: [facility] 06-09-2022 11:28-0400 Heart rate 56 /min Giovanni Presley MD Work Phone: [facility] 06-09-2022 11:28-0400 Respiratory rate 16 /min Giovanni Persley MD Work Phone: [facility] 05-17-2022 08:19-0500 Body temperature 96.01 [degF] Giovanni Presley MD Work Phone: [facility] 05-17-2022 08:19-0500 Body weight 87.09 kg Giovanni Presley MD Work Phone: [facility] 05-17-2022 08:19-0500 Diastolic blood pressure 72 mm[Hg] Giovanni Presley MD Work Phone: [facility] 05-17-2022 08:19-0500 Heart rate 60 /min Giovanni Presley MD Work Phone: [facility] 05-17-2022 08:19-0500 Respiratory rate 12 /min Giovanni Presley MD Work Phone: [facility] 05-17-2022 08:19-0500 Systolic blood pressure 126 mm[Hg] Giovanni Presley MD Work Phone: [facility] 11-09-2021 07:53-0400 Body height 181.6 cm Marlys Older [employer] Work Phone: [facility] 11-09-2021 07:53-0400 Body weight 88.91 kg Marlys Older [employer] Work Phone: [facility] 11-09-2021 07:53-0400 Diastolic blood pressure 74 mm[Hg] Marlys Older [employer] Work Phone: [facility] 11-09-2021 07:53-0400 Heart rate 68 /min Marlys Older [employer] Work Phone: [facility] 11-09-2021 07:53-0400 Respiratory rate 12 /min Marlys Older [employer] Work Phone: [facility] 11-09-2021 07:53-0400 Systolic blood pressure 124 mm[Hg] Marlys Older [employer] Work Phone: [facility] 11-15-2016 09:40-0400 BMI (Body Mass Index) 29.71 kg/m2 [facility] Work Phone: 11-15-2016 09:40-0400 BP Diastolic 76 mm[Hg] [facility] Work Phone: 11-15-2016 09:40-0400 BP Systolic 138 mm[Hg] [facility] Work Phone: 11-15-2016 09:40-0400 Height 180.34 cm [facility] Work Phone: 11-15-2016 09:40-0400 Pulse (Heart Rate) 76 /min [facility] Work Phone: 11-15-2016 09:40-0400 Respiratory Rate 20 /min [facility] Work Phone: 11-15-2016 09:40-0400 Weight 96.64 kg [facility] Work Phone: 05-12-2016 09:57-0500 BMI (Body Mass Index) 30.08 kg/m2 MD [facility] Work Phone: 05-12-2016 09:57-0500 BP Diastolic 60 mm[Hg] Lupillo Meyer MD [facility] Work Phone: 05-12-2016 09:57-0500 BP Systolic 110 mm[Hg] MD [facility] Work Phone: 05-12-2016 09:57-0500 BSA (Body Surface Area) 2.18 m2 MD [facility] Work Phone: 05-12-2016 09:57-0500 Pulse (Heart Rate) 64 /min MD [facility] Work Phone: 05-12-2016 09:57-0500 Respiratory Rate 20 /min MD [facility] Work Phone: 05-12-2016 09:57-0500 Weight 97.84 kg Lupillo Meyer MD [facility] Work Phone: 11-12-2015 07:40-0400 Height 180.34 cm MD [facility] Work Phone: 05-17-2012 15:59-0500 Heart rate 61 /min Lupillo Meyer MD [facility] Work Phone: Encounters Encounter Date Encounter Type Care Provider Facility Start: 05-25-2023 End: 05-25-2023 ambulatory GIOVANNI PRESLEY Facility:[facility] Start: 05-25-2023 End: 05-25-2023 Patient encounter procedure Giovanni Presley MD Work Phone: Internal Medicine [facility] Procedures Date Procedure Procedure Detail Performing Clinician Start: 06-30-2022 Us retroperitoneal real time w/image complete Giovanni Presley MD Work Phone: Start: 05-02-2017 End: 05-02-2017 *Hepatic Function Panel Omar Manuel Start: 05-02-2017 End: 05-02-2017 Lipid panel [AGGREGATE] Omar Manuel Start: 11-15-2016 End: 11-15-2016 TEST DEVELOPER Lupillo Meyer MD Start: 11-15-2016 End: 11-15-2016 Follow Up Appt 1 year Lupillo Meyer MD Start: 11-02-2016 End: 11-04-2016 *Hepatic Function Panel Omar Manuel Start: 11-02-2016 End: 11-04-2016 Lipid panel [AGGREGATE] Omar Manuel Start: 06-06-2016 End: 06-06-2016 Nuclear stress test -exercise Lupillo Meyer MD Start: 05-12-2016 End: 05-12-2016 ROCHELLE Meyer MD Start: 05-12-2016 End: 05-12-2016 Follow Up Appt 6 months Omar Manuel Start: 05-04-2016 End: 05-04-2016 *Hepatic Function Panel Omar Manuel Start: 05-04-2016 End: 05-04-2016 Lipid panel [AGGREGATE] Omar Manuel Start: 11-12-2015 End: 11-12-2015 Dietary management education, guidance, and counseling Lupillo Meyer MD Start: 11-12-2015 End: 11-12-2015 ROCHELLE Meyer MD Start: 11-12-2015 End: 11-12-2015 Follow Up Appt 6 months Omar Manuel Start: 10-13-2015 End: 11-04-2015 *Hepatic Function Panel Omar Manuel Start: 10-13-2015 End: 11-04-2015 Lipid panel [AGGREGATE] Omar Manuel Start: 04-21-2015 End: 11-10-2015 ROCHELLE Meyer MD Start: 04-21-2015 End: 11-10-2015 Follow Up Appt 6 months Omar Manuel Start: 03-24-2015 End: 04-14-2015 *Hepatic Function Panel Omar Manuel Start: 03-24-2015 End: 04-14-2015 Lipid panel [AGGREGATE] Omar Manuel Start: 10-03-2014 End: 10-03-2014 ORCHELLE Meyer MD Start: 10-03-2014 End: 10-04-2014 Documentation of current medications Lupillo Meyer MD Start: 10-03-2014 End: 10-03-2014 Follow Up Appt 6 months Omar Manuel Start: 07-25-2014 End: 09-23-2014 *Hepatic Function Panel Omar Manuel Start: 07-25-2014 End: 09-23-2014 Lipid panel [AGGREGATE] Omar Manuel Start: 02-11-2014 End: 02-11-2014 ROCHELLE Meyer MD Start: 02-11-2014 End: 02-11-2014 Follow Up Appt 6 months Omar Manuel Start: 01-25-2014 End: 01-28-2014 *Hepatic Function Panel Dana sullivan PA-C Work Phone: Start: 01-25-2014 End: 01-28-2014 Lipid panel [AGGREGATE] Dana sullivan PA-C Work Phone: Start: 08-20-2013 End: 11-01-2013 Carotid duplex Lupillo Meyer MD Start: 08-20-2013 End: 08-20-2013 ROCHELLE Meyer MD Start: 08-20-2013 End: 08-26-2013 Echo exam of abdomen Lupillo Meyer MD Start: 08-20-2013 End: 08-20-2013 Follow Up Appt 6 months Omar Manuel Start: 08-20-2013 End: 08-26-2013 Nuclear stress test -exercise Lupillo Meyer MD Start: 06-25-2013 End: 07-30-2013 *Hepatic Function Panel Omar Manuel Start: 06-25-2013 End: 07-30-2013 Lipid panel [AGGREGATE] Omar Manuel Start: 03-07-2013 End: 03-07-2013 ROCHELLE Meyer MD Start: 03-07-2013 End: 03-07-2013 Follow Up Appt 6 months Omar Manuel Start: 01-25-2013 End: 01-25-2013 *Hepatic Function Panel Omar Manuel Start: 01-25-2013 End: 01-25-2013 Lipid panel [AGGREGATE] Omar Manuel Start: 08-21-2012 End: 08-21-2012 TEST DEVELOPER Lupillo Meyer MD Start: 08-21-2012 End: 08-21-2012 Follow Up Appt 6 months Omar Manuel Start: 05-17-2012 End: 08-15-2012 *Hepatic Function Panel Omar Manuel Start: 05-17-2012 End: 11-10-2015 Cardiac Rehab Lupillo Meyer MD Start: 05-17-2012 End: 11-10-2015 TEST DEVELOPER Lupillo Meyer MD Start: 05-17-2012 End: 11-10-2015 Electrocardiogram, complete Lupillo Meyer MD Start: 05-17-2012 End: 11-10-2015 Follow Up Appt 3 months Omar Manuel Start: 05-17-2012 End: 08-15-2012 Lipid panel [AGGREGATE] Omar Manuel Start: 05-08-2012 Percutaneous transluminal coronary angioplasty PERCUTANEOUS TRANSLUMINAL CORONARY ANGIOPLASTY, HX OF Lupillo Meyer MD Start: 05-08-2012 Placement of stent in coronary artery Status post cardiac stent placement Lupillo Meyer MD Plan of Treatment Date Care Activity Detail Author Start: 05-18-2026 Diabetes Screening Diabetes Screening [facility] Start: 11-17-2025 DIABETES SCREEN DIABETES SCREEN [facility] Start: 11-17-2025 Diabetes Screening Diabetes Screening [facility] Start: 06-07-2025 DIABETES SCREEN DIABETES SCREEN [facility] Start: 12-08-2024 DIABETES SCREEN DIABETES SCREEN [facility] Start: 11-04-2024 DIABETES SCREEN DIABETES SCREEN [facility] Start: 05-13-2024 DIABETES SCREEN DIABETES SCREEN [facility] Start: 11-23-2023 End: 02-22-2024 Comprehensive metabolic 2000 panel - Serum or Plasma COMP METABOLIC PANEL Lab Routine Other hyperlipidemia Expected: 11/23/2023, Expires: 02/22/2024 [facility] Work Phone: Immunizations Immunization Date Immunization Notes Care Provider Kelin hardin 02-06-2023 influenza, high dose seasonal, preservative-free Marlys Older [employer] Work Phone: [facility] Work Phone: 01-19-2023 COVID-19 vaccine, ag e 12+ yr, season (MODERNA) Marlys Older [employer] Work Phone: [facility] 01-03-2023 respiratory syncytia l virus (RSV), unspecified formulation Giovanni Presley MD Work Phone: [facility] Work Phone: 01-04-2022 influenza (HD-IIV4) vaccine, age 65+ yr, high dose, quadrivalent, PF (FLUZONE HIGH-DOSE) Marlys Older [employer] Work Phone: [facility] Work Phone: 01-04-2022 influenza virus vacc ine, unspecified formulation Giovanni Presley MD Work Phone: [facility] 12-07-2020 influenza (HD-IIV4) vaccine, age 65+ yr, high dose, quadrivalent, PF (FLUZONE HIGH-DOSE) Marlys Older [employer] Work Phone: [facility] Work Phone: 12-07-2020 influenza, high dose seasonal, preservative-free Marlys Older [employer] Work Phone: [facility] Work Phone: 05-15-2020 COVID-19 vaccine, fu ll dose (MODERNA) Marlys Older [employer] Work Phone: [facility] Work Phone: 04-17-2020 COVID-19 vaccine, fu ll dose (MODERNA) Marlys Older [employer] Work Phone: [facility] 12-10-2019 influenza, high dose seasonal, preservative-free Marlys Older [employer] Work Phone: [facility] Work Phone: 12-10-2019 influenza, injectabl e, quadrivalent, preservative free Marlys Older [employer] Work Phone: [facility] Work Phone: 12-26-2018 influenza, high dose seasonal, preservative-free Marlys Older [employer] Work Phone: [facility] Work Phone: 12-11-2018 zoster vaccine recombinant Marlys Older [employer] Work Phone: [facility] Work Phone: 07-18-2018 zoster vaccine recombinant Marlys Older [employer] Work Phone: [facility] Work Phone: 12-25-2017 influenza, high dose seasonal, preservative-free Marlys Older [employer] Work Phone: [facility] Work Phone: 12-12-2016 influenza, high dose seasonal, preservative-free Marlys Older [employer] Work Phone: [facility] Work Phone: 12-01-2015 influenza, high dose seasonal, preservative-free Marlys Older [employer] Work Phone: [facility] 12-24-2014 influenza, seasonal, injectable Marlys Older [employer] Work Phone: [facility] 07-23-2014 pneumococcal conjuga te vaccine, 13 valent Marlys Older [employer] Work Phone: [facility] 12-23-2013 influenza virus vacc ine, whole virus Marlys Older [employer] Work Phone: [facility] Work Phone: 03-12-2013 zoster vaccine, live Marlys Old er [employer] Work Phone: [facility] Work Phone: 01-18-2013 tetanus and diphther ia toxoids, adsorbed, preservative free, for adult use (2 Lf of tetanus toxoid and 2 Lf of diphtheria toxoid) Marlys Older [employer] Work Phone: [facility] 01-08-2013 influenza virus vacc ine, unspecified formulation Marlys Older [employer] Work Phone: [facility] Work Phone: 01-17-2011 influenza virus vacc ine, unspecified formulation Marlys Older [employer] Work Phone: [facility] Work Phone: 01-25-2006 influenza virus vacc ine, unspecified formulation Marlys Older [employer] Work Phone: [facility] 06-17-2003 pneumococcal polysaccharide vaccine, 23 valent Marlys Older [employer] Work Phone: [facility] Work Phone: 05-17-2002 diphtheria and tetan us toxoids, adsorbed for pediatric use Marlys Older [employer] Work Phone: [facility] Work Phone: Payers Date Payer Category Payer Medicare A[employer]NA MEDICARE A ETNA MEDICARE PPO [id number] 2021-Present [phone] [address] [place] [address] PPO [id number] 2021 Medicare AETNA MEDICARE A ETNA MEDICARE PPO [id number] 2021-Present [phone] [address] [place] [address] PPO [id number] 2021 Medicare [id number] Social History Date Type Detail Facility Start: 04-26-2011 End: 11-09-2021 Tobacco smoking status NHIS Never smoked tobacco [facility] Start: 05-12-2021 End: 05-25-2023 Alcohol intake Current drinker of alcohol (finding) [facility] Start: 05-12-2021 End: 08-16-2022 Alcohol intake [facility] Work Phone: Start: 08-01-2020 End: 05-11-2021 History SDOH Alcohol Frequency 3 [facility] Start: 08-01-2020 History SDOH Alcohol Std Drinks 98 [facility] Start: 08-01-2020 History SDOH Alcohol Binge 1 [facility] Start: 08-01-2020 History SDOH Social Connections Phone 2 [facility] Start: 08-01-2020 End: 05-17-2022 History SDOH Physical Activity MPS 4 [facility] Start: 08-01-2020 History SDOH Financial 5 [facility] Start: 08-01-2020 History SDOH Housing Places Lived 0 [facility] Start: 08-01-2020 Education 20 [facility] Start: 1940 Sex Assigned At Not on file [facility] Start: 04-26-2011 End: 11-09-2021 Tobacco use and exposure Smokeless tobacco non-user [facility] Work Phone: Start: 08-16-2022 End: 11-22-2022 Tobacco use panel [facility] Work Phone: National Score (1-10 0), lower number is lower risk 60 [facility] Do you belong to any clubs or organizations such as pentecostalism groups, unions, fraternal or athletic groups, or school groups? No [facility] Are you now , , , , never or living with a partner? [facility] How often to you hav e a drink containing alcohol? 2-4 times a month [facility] How often do you hav e 6 or more drinks on 1 occasion? Never [facility] Do you feel stress - tense, restless, nervous, or anxious, or unable to sleep at night because your mind is troubled all the time - these days [OSQ] Not at all [facility] (I/We) worried wheth er (my/our) food would run out before (I/we) got money to buy more. Never true [facility] Clinical Notes 02-22-2012 to 05-25-2023 Giovanni Presley MD - 05/25/2023 9:00 AM ESTTelephone Encounter - KalyanSon carrasco Ma - 02/27/2023 8:56 AM EST Note Date & Type Note Facility 05-25-2023 Note HNO ID: [id number] Author: GIOVANNI PRESLEY MD Service: ? Author Type: Physician Type: Progress Notes Filed: 05/25/2023 09:17 Note Text: This note was created using [email or web address]. Subjective Cedrick Mishra is a 82 year old male. He was doing well and had no new concerns. He needed Flonase for the spring allergy season. We reviewed his lab results. Review of Systems Constitutional: Negative for fatigue. Respiratory: Negative for shortness of breath. Cardiovascular: Negative for chest pain and leg swelling. Genitourinary: Negative. Neurological: Negative for dizziness. ACTIVE PROBLEM LIST Esophageal Reflux Essential Hypertension, Benign Allergic Rhinitis Hyperlipidemia Trigeminal Neuralgia Actinic keratosis. Impotence of Organic Origin Other Seborrheic Keratosis Cad (Coronary Artery Disease) Ckd (Chronic Kidney Disease) Stage 3, Gfr 30-59 Ml/Min ([facility]) Bph With Obstruction/Lower Urinary Tract Symptoms Current Outpatient Medications Medication Sig omeprazole (PRILOSEC) 20 mg capsule Take 1 capsule by mouth daily before breakfast. 1/2 hr before meal. sildenafil (REVATIO) 20 mg tablet Take 2-3 tablets by mouth once daily as needed (erectile dysfunction). pravastatin (PRAVACHOL) 40 mg tablet Take 1 tablet by mouth daily at bedtime. gabapentin (NEURONTIN) 300 mg capsule Take 1 capsule by mouth twice daily. lisinopril (ZESTRIL) 5 mg tablet Take 1 tablet by mouth once daily. tamsulosin (FLOMAX) 0.4 mg Take 1 capsule by mouth daily at bedtime. fluticasone (FLONASE) 50 mcg/actuation nasal spray Use 2 Sprays in each nostril once daily. Rinse mouth after use. (Patient taking differently: Use 2 Sprays in each nostril once daily. Rinse mouth after use. Uses as needed) multivitamin tablet Take 1 tablet by mouth once daily. Alpha Lipoic Acid 600 mg cap Take 600 mg by mouth once daily. nitroglycerin sublingual (NITROQUICK) 0.4 mg SL tablet Dissolve 1 tablet under the tongue every 5 minutes as needed for Chest Pain. metoprolol tartrate, short acting, 50 mg tablet Take 1 tablet by mouth twice daily. Aspirin 81 mg tab Take 1 tablet by mouth once daily. Take with food. GLUCOSAMINE HCL/CHONDRO STOUT A (GLUCOSAMINE-CHONDROITIN ORAL) Take by mouth once daily. No current facility-administered medications for this visit. Objective BP 114/66 (BP Site: Left Arm, BP Position: Sitting, BP Cuff Size: Large Adult) Pulse 64 Temp 36.3 ?C (97.3 ?F) (Temporal) Resp 12 Wt 87.5 kg (192 lb 14.4 oz) BMI 27.21 kg/m? Physical Exam Constitutional: Appearance: He is not ill-appearing. Cardiovascular: Rate and Rhythm: Normal rate and regular rhythm. Heart sounds: No murmur heard. No gallop. Pulmonary: Effort: No respiratory distress. Breath sounds: No wheezing or rales. Musculoskeletal: Right lower leg: No edema. Left lower leg: No edema. Neurological: Mental Status: He is alert. Gait: Gait normal. Assessment and Plan 1. Stage 3a chronic kidney disease (HCC) - ICD9: 585.3, ICD10: N18.31 (primary diagnosis) - eGFR: 58 Stable - Counseled on avoiding NSAIDs, adequate hydration 2. Other hyperlipidemia - ICD9: 272.4, ICD10: E78.49 Controlled. - COMP METABOLIC PANEL - LIPID PANEL BASIC 3. Essential hypertension, benign - ICD9: 401.1, ICD10: I10 - Controlled Giovanni Presley MD [facility] 05-25-2023 History of Presen t illness Narrative This note was created using [email or web address]. Subjective Cedrick Mishra is a 82 year old male. He was doing well and had no new concerns. He needed Flonase for the spring allergy season. We reviewed his lab results. Review of Systems Constitutional: Negative for fatigue. Respiratory: Negative for shortness of breath. Cardiovascular: Negative for chest pain and leg swelling. Genitourinary: Negative. Neurological: Negative for dizziness. ACTIVE PROBLEM LIST Esophageal Reflux Essential Hypertension, Benign Allergic Rhinitis Hyperlipidemia Trigeminal Neuralgia Actinic keratosis. Impotence of Organic Origin Other Seborrheic Keratosis Cad (Coronary Artery Disease) Ckd (Chronic Kidney Disease) Stage 3, Gfr 30-59 Ml/Min ([facility]) Bph With Obstruction/Lower Urinary Tract Symptoms Current Outpatient Medications Medication Sig omeprazole (PRILOSEC) 20 mg capsule Take 1 capsule by mouth daily before breakfast. 1/2 hr before meal. sildenafil (REVATIO) 20 mg tablet Take 2-3 tablets by mouth once daily as needed (erectile dysfunction). pravastatin (PRAVACHOL) 40 mg tablet Take 1 tablet by mouth daily at bedtime. gabapentin (NEURONTIN) 300 mg capsule Take 1 capsule by mouth twice daily. lisinopril (ZESTRIL) 5 mg tablet Take 1 tablet by mouth once daily. tamsulosin (FLOMAX) 0.4 mg Take 1 capsule by mouth daily at bedtime. fluticasone (FLONASE) 50 mcg/actuation nasal spray Use 2 Sprays in each nostril once daily. Rinse mouth after use. (Patient taking differently: Use 2 Sprays in each nostril once daily. Rinse mouth after use. Uses as needed) multivitamin tablet Take 1 tablet by mouth once daily. Alpha Lipoic Acid 600 mg cap Take 600 mg by mouth once daily. nitroglycerin sublingual (NITROQUICK) 0.4 mg SL tablet Dissolve 1 tablet under the tongue every 5 minutes as needed for Chest Pain. metoprolol tartrate, short acting, 50 mg tablet Take 1 tablet by mouth twice daily. Aspirin 81 mg tab Take 1 tablet by mouth once daily. Take with food. GLUCOSAMINE HCL/CHONDRO STOUT A (GLUCOSAMINE-CHONDROITIN ORAL) Take by mouth once daily. No current facility-administered medications for this visit. Objective BP 114/66 (BP Site: Left Arm, BP Position: Sitting, BP Cuff Size: Large Adult) Pulse 64 Temp 36.3 C (97.3 F) (Temporal) Resp 12 Wt 87.5 kg (192 lb 14.4 oz) BMI 27.21 kg/m Physical Exam Constitutional: Appearance: He is not ill-appearing. Cardiovascular: Rate and Rhythm: Normal rate and regular rhythm. Heart sounds: No murmur heard. No gallop. Pulmonary: Effort: No respiratory distress. Breath sounds: No wheezing or rales. Musculoskeletal: Right lower leg: No edema. Left lower leg: No edema. Neurological: Mental Status: He is alert. Gait: Gait normal. Assessment and Plan 1. Stage 3a chronic kidney disease (HCC) - ICD9: 585.3, ICD10: N18.31 (primary diagnosis) - eGFR: 58 Stable - Counseled on avoiding NSAIDs, adequate hydration 2. Other hyperlipidemia - ICD9: 272.4, ICD10: E78.49 Controlled. - COMP METABOLIC PANEL - LIPID PANEL BASIC 3. Essential hypertension, benign - ICD9: 401.1, ICD10: I10 - Controlled Giovanni Presley MD documented in this encounter [facility] 02-27-2023 Miscellaneous Notes Formattin g of this note might be different from the original. KYUNG: 11/23/2022 Last refill: 01/17/2022 QTY: 12 Refills: 2 documented in this encounter [facility] documented in this encounter [facility]11-05-2023 Reason for referral (narrative)* Diagnostic Procedure Only (Routine) - Closed Specialty Diagnoses / Procedures Referred By Contac t Referred To Contact US IMAGING Diagnoses Stage 3a chronic kidney disease (HCC) Procedures US KIDNEY/BLADDER US RETROPERITONEAL REAL TIME W/IMAGE COMPLETE Giovanni Presley MD [address] [place] [address] [facility] [place] [address] Referral ID Status Reason Start Date Expiration Date V isits Requested Visits Authorized [id number] Closed Auto-Generate d Referral 06/09/2022 07/09/2023 1 1 [facility]10-30-2023 Miscellaneous Notes* Telephone Encounter - Lilliam Sandhu [facility] - 01/23/2023 10:42 AM EDT Updated in immunization history. GAMA Chapman [facility] [place] NoteHNO ID: [id number] Author: Giovanni Presley MD Service: ? Author Type: Physician Type: Progress Notes Filed: 11/23/2022 10:43 AM Note Text: This note was created using [employer]. Subjective Cedrick Mishra is a 82 year old male. He was doing reasonably well. Weight was down intentionally. He saw urology who felt he was still able to generate a good stream despite his elevated residual bladder volume. No medication changes were made. His renal function was stable. Review of Systems Constitutional: Negative for appetite change, fatigue, fever and unexpected weight change. Respiratory: Negative for chest tightness and shortness of breath. Cardiovascular: Negative for chest pain, palpitations and leg swelling. Gastrointestinal: Negative for abdominal pain, constipation, diarrhea, nausea and vomiting. Genitourinary: Negative for difficulty urinating and flank pain. Neurological: Negative for dizziness and headaches. ACTIVE PROBLEM LIST Esophageal Reflux Essential Hypertension, Benign Allergic Rhinitis Hyperlipidemia Trigeminal Neuralgia Actinic keratosis. 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 tamsulosin (FLOMAX) 0.4 mg Take 1 capsule by mouth daily at bedtime. fluticasone (FLONASE) 50 mcg/actuation nasal spray Use 2 Sprays in each nostril once daily. Rinse mouth after use. (Patient taking differently: Use 2 Sprays in each nostril once daily. Rinse mouth after use. Uses as needed) omeprazole (PRILOSEC) 20 mg capsule Take 1 capsule by mouth daily before breakfast. 1/2 hr before meal. sildenafil (REVATIO) 20 mg tablet Take 2-3 tablets by mouth once daily as needed (erectile dysfunction). gabapentin (NEURONTIN) 300 mg capsule Take 1 capsule by mouth twice daily. (Patient taking differently: Take 300 mg by mouth twice daily. 1-2 times daily as needed) multivitamin tablet Take 1 tablet by mouth once daily. Alpha Lipoic Acid 600 mg cap Take 600 mg by mouth once daily. nitroglycerin sublingual (NITROQUICK) 0.4 mg SL tablet Dissolve 1 tablet under the tongue every 5 minutes as needed for Chest Pain. pravastatin (PRAVACHOL) 40 mg tablet Take 1 tablet by mouth daily at bedtime. metoprolol tartrate, short acting, 50 mg tablet Take 1 tablet by mouth twice daily. Aspirin 81 mg tab Take 1 tablet by mouth once daily. Take with food. fexofenadine (HUY) 180 mg tablet Take by mouth. (Patient not taking: Reported on 08/16/2022) CLOPIDOGREL BISULFATE (PLAVIX ORAL) Take by mouth once daily. Magnesium Oxide-Mg Amino Acid Chelate 300 mg cap Take 1 capsule by mouth. (Patient not taking: Reported on 06/09/2022) GLUCOSAMINE HCL/CHONDRO STOUT A (GLUCOSAMINE-CHONDROITIN ORAL) Take by mouth once daily. No current facility-administered medications for this visit. Objective BP 122/68 (BP Site: Left Arm, BP Position: Sitting, BP Cuff Size: Large Adult) Pulse (!) 56 Resp 12 Ht 179.3 cm (5' 10.6 ) Wt 84.7 kg (186 lb 12.8 oz) BMI 26.35 kg/m? Physical Exam Constitutional: General: He is not in acute distress. Appearance: He is not ill-appearing. HENT: Head: Normocephalic. Eyes: General: No scleral icterus. Conjunctiva/sclera: Conjunctivae normal. Cardiovascular: Rate and Rhythm: Regular rhythm. Bradycardia present. Heart sounds: No murmur heard. No gallop. Pulmonary: Effort: No respiratory distress. Breath sounds: Normal breath sounds. No wheezing or rales. Abdominal: Palpations: Abdomen is soft. There is no mass. Tenderness: There is no abdominal tenderness. Hernia: No hernia is present. Musculoskeletal: Right lower leg: No edema. Left lower leg: No edema. Lymphadenopathy: Cervical: No cervical adenopathy. Neurological: General: No focal deficit present. Mental Status: He is alert. Gait: Gait normal. Component Latest Ref Rng AND Units 11/17/2022 Protein, Total 6.3 - 8.0 g/dL 6.3 Albumin 3.9 - 4.9 g/dL 4.0 Calcium 8.5 - 10.2 mg/dL 9.6 Bilirubin, Total 0.2 - 1.3 mg/dL 1.4 (H) Alkaline Phosphatase 38 - 113 U/L 69 AST 14 - 40 U/L 22 ALT 10 - 54 U/L 12 Glucose 74 - 99 mg/dL 102 (H) BUN 9 - 24 mg/dL 28 (H) Creatinine 0.73 - 1.22 mg/dL 1.23 (H) Sodium 136 - 144 mmol/L 143 Potassium 3.7 - 5.1 mmol/L 4.3 Chloride 97 - 105 mmol/L 107 (H) CO2 22 - 30 mmol/L 25 Anion Gap 9 - 18 mmol/L 11 eGFR >=60 mL/min/1.73mA? 58 (L) Cholesterol, Total <200 mg/dL 132 Triglyceride <150 mg/dL 101 HDL Cholesterol >39 mg/dL 44 Non HDL Cholesterol <130 mg/dL 88 Fasting Time hrs 14 VLDL Cholesterol <30 mg/dL 20 TC:HDL Ratio <5.10 3.00 LDL Cholesterol < (more content not included)...[facility] 11-23-2022 NoteHNO ID: [id number] Author: Giovanni Presley MD Service: ? Author Type: Physician Type: Progress Notes Filed: 11/23/2022 10:43 AM Note Text: Cedrick Mishra is a 82 year old male here for a Medicare wellness visit. Health Risk Assessment In general, health is: Good Concerns with balance: Not at all Concerns with teeth or dentures:Not at all Concerns with sexual function: Not at all [place] anxious, stressed, angry, irritable, lonely, isolated, or had thoughts of hurting themself: Not at all Has little interest or pleasure in doing things: Not at all Bothered by feeling down, depressed, or hopeless: Not at all Needs help with grocery shopping, cooking, housework, bathing, grooming, dressing, eating, sitting or standing, walking, using the toilet, handling finances, taking medications, using the telephone, or driving: No Following safety precautions in the home environment and vehicle: removed throw rugs from floors, installed grab bars in the bathroom, handrails in stairwells, having adequate lighting, wearing seatbelt at all times?: No Smokes cigarettes, vapes, or chew tobacco: No Eats healthy foods including fruits, vegetables, whole grains, and fiber-rich foods: Nearly every day Number of days per week engages in exercise: 4 days Average alcohol consumption: 2-4 times a month Current Providers Specialists: I have reviewed specialist-related care of the patient in the medical record. Current care team: Patient Care Team: Giovanni Presley MD as PCP - General Outside specialists seen: Dr. Meyer - Reconciliation Coordinator Dr. Berry Falk - Optometry. Dr. Ashraf - Cementer Machine Joiner Dr. Esteban- ENT (nosebleed). Medical/Family history review Reviewed and updated problem list, medical/surgical/family/social history, medications, and allergies. Opioid use review Patient is not currently using opioids. Depression screening Depression Screening PHQ-2 Score PHQ-9 Score 11/22/2022 0 0 Depression screening tool completed and reviewed. Based on score and interview, patient is not at risk for depression. Screening tool discussed with patient, and I recommended no further intervention at this time. Cognitive screening Mini Cog Score: 5 Functional Observation Was the patient's timed Up AND Go test unsteady or ? 12 seconds? No Advance Care Planning End of Life planning discussed, including patient's advanced directive wishes: Yes Measurements BP 122/68 Pulse 56 Resp 12 Ht 5' 10.6 (1.79m) Wt 186 lb 12.8 oz (84.7kg) BMI 26.36 kg/(m2). Visual acuity (required for Welcome to Medicare): follows with optometry/ophthalmology, screening completed today, and Right: 20/40 Left: 20/ 30 Both: 20/50 Hearing Evaluation: within normal limits Assessment/Plan Medicare annual wellness visit, subsequent (Z00.00) - Counseled on healthy diet and regular exercise - Fall avoidance - Vaccines recommended COVID-19 - [facility] History of Present illness Narrative* Giovanni Presley MD - 11/23/2022 8:47 AM EDT This note was created using [employer]. Subjective Cedrick Mishra is a 82 year old male. He was doing reasonably well. Weight was down intentionally. He saw urology who felt he was still able to generate a good stream despite his elevated residual bladder volume. No medication changes were made. His renal function was stable. Review of Systems Constitutional: Negative for appetite change, fatigue, fever and unexpected weight change. Respiratory: Negative for chest tightness and shortness of breath. Cardiovascular: Negative for chest pain, palpitations and leg swelling. Gastrointestinal: Negative for abdominal pain, constipation, diarrhea, nausea and vomiting. Genitourinary: Negative for difficulty urinating and flank pain. Neurological: Negative for dizziness and headaches. ACTIVE PROBLEM LIST Esophageal Reflux Essential Hypertension, Benign Allergic Rhinitis Hyperlipidemia Trigeminal Neuralgia Actinic keratosis. 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 tamsulosin (FLOMAX) 0.4 mg Take 1 capsule by mouth daily at bedtime. fluticasone (FLONASE) 50 mcg/actuation nasal spray Use 2 Sprays in each nostril once daily. Rinse mouth after use. (Patient taking differently: Use 2 Sprays in each nostril once daily. Rinse mouth after use. Uses as needed) omeprazole (PRILOSEC) 20 mg capsule Take 1 capsule by mouth daily before breakfast. 1/2 hr before meal. sildenafil (REVATIO) 20 mg tablet Take 2-3 tablets by mouth once daily as needed (erectile dysfunction). gabapentin (NEURONTIN) 300 mg capsule Take 1 capsule by mouth twice daily. (Patient taking differently: Take 300 mg by mouth twice daily. 1-2 times daily as needed) multivitamin tablet Take 1 tablet by mouth once daily. Alpha Lipoic Acid 600 mg cap Take 600 mg by mouth once daily. nitroglycerin sublingual (NITROQUICK) 0.4 mg SL tablet Dissolve 1 tablet under the tongue every 5 minutes as needed for Chest Pain. pravastatin (PRAVACHOL) 40 mg tablet Take 1 tablet by mouth daily at bedtime. metoprolol tartrate, short acting, 50 mg tablet Take 1 tablet by mouth twice daily. Aspirin 81 mg tab Take 1 tablet by mouth once daily. Take with food. fexofenadine (HUY) 180 mg tablet Take by mouth. (Patient not taking: Reported on 08/16/2022) CLOPIDOGREL BISULFATE (PLAVIX ORAL) Take by mouth once daily. Magnesium Oxide-Mg Amino Acid Chelate 300 mg cap Take 1 capsule by mouth. (Patient not taking: Reported on 06/09/2022) GLUCOSAMINE HCL/CHONDRO STOUT A (GLUCOSAMINE-CHONDROITIN ORAL) Take by mouth once daily. No current facility-administered medications for this visit. Objective BP 122/68 (BP Site: Left Arm, BP Position: Sitting, BP Cuff Size: Large Adult) Pulse (!) 56 Resp 12 Ht 179.3 cm (5' 10.6 ) Wt 84.7 kg (186 lb 12.8 oz) BMI 26.35 kg/m Physical Exam Constitutional: General: He is not in acute distress. Appearance: He is not ill-appearing. HENT: Head: Normocephalic. Eyes: General: No scleral icterus. Conjunctiva/sclera: Conjunctivae normal. Cardiovascular: Rate and Rhythm: Regular rhythm. Bradycardia present. Heart sounds: No murmur heard. No gallop. Pulmonary: Effort: No respiratory distress. Breath sounds: Normal breath sounds. No wheezing or rales. Abdominal: Palpations: Abdomen is soft. There is no mass. Tenderness: There is no abdominal tenderness. Hernia: No hernia is present. Musculoskeletal: Right lower leg: No edema. Left lower leg: No edema. Lymphadenopathy: Cervical: No cervical adenopathy. Neurological: General: No focal deficit present. Mental Status: He is alert. Gait: Gait normal. Component Latest Ref Rng & Units 11/17/2022 Protein, Total 6.3 - 8.0 g/dL 6.3 Albumin 3.9 - 4.9 g/dL 4.0 Calcium 8.5 - 10.2 mg/dL 9.6 Bilirubin, Total 0.2 - 1.3 mg/dL 1.4 (H) Alkaline Phosphatase 38 - 113 U/L 69 AST 14 - 40 U/L 22 ALT 10 - 54 U/L 12 Glucose 74 - 99 mg/dL 102 (H) BUN 9 - 24 mg/dL 28 (H) Creatinine 0.73 - 1.22 mg/dL 1.23 (H) Sodium 136 - 144 mmol/L 143 Potassium 3.7 - 5.1 mmol/L 4.3 Chloride 97 - 105 mmol/L 107 (H) CO2 22 - 30 mmol/L 25 Anion Gap 9 - 18 mmol/L 11 eGFR >=60 mL/min/1.73m 58 (L) Cholesterol, Total <200 mg/dL 132 Triglyceride <150 mg/dL 101 HDL Cholesterol >39 mg/dL 44 Non HDL Cholesterol <130 mg/dL 88 Fasting Time hrs 14 VLDL Cholesterol <30 mg/dL 20 TC:HDL Ratio <5.10 3.00 LDL Cholesterol <100 mg/dL 68 LDL:HDL Ratio <2.54 1.55 Assessment and Plan 1. Medicare annual wellness visit, subsequent - ICD9: V70.0, ICD10: Z00.00 (primary diagnosis) See wellness note. 2. Trigeminal neuralgia - ICD9: 350.1, ICD10: G50.0 Stable. He was taking medication 1-2 times daily depending on neuralgia. - GABAPENTIN 300 MG CAPSULE 3. Essential hypertension, benign - ICD9: 401.1, ICD10: I10 - Controlled 4. Other hyperlipidemia - ICD9: 272.4, ICD10: E78.49 - Controlled. 5. Coronary artery disease involving [place] heart without angina pectoris, unspecified vessel or lesion type - ICD9: 414.01, ICD10: I25.10 Stable. 6. Stage 3a chronic kidney disease (HCC) - ICD9: 585.3, ICD10: N18.31 - eGFR: Stable - Counseled on avoiding NSAIDs, adequate hydration - CBC - BASIC METABOLIC PNL 7. BPH with obstruction/lower urinary tract symptoms - ICD9: 600.01, 599.69, ICD10: N40.1, N13.8 The meaning of a false positive PSA and false negative PSA has been discussed, and the patient indicates their understanding of the limitations of this screening test. - PSA/PROSTSPECAG SCRN Giovanni Presley MD * Giovanni Presley MD - 11/23/2022 8:42 AM EDT Cedrick Mishra is a 82 year old male here for a Medicare wellness visit. Health Risk Assessment In general, health is: Good Concerns with balance: Not at all Concerns with teeth or dentures:Not at all Concerns with sexual function: Not at all [place] anxious, stressed, angry, irritable, lonely, isolated, or had thoughts of hurting themself: Not at all Has little interest or pleasure in doing things: Not at all Bothered by feeling down, depressed, or hopeless: Not at all Needs help with grocery shopping, cooking, housework, bathing, grooming, dressing, eating, sitting or standing, walking, using the toilet, handling finances, taking medications, using the telephone, or driving: No Following safety precautions in the home environment and vehicle: removed throw rugs from floors, installed grab bars in the bathroom, handrails in stairwells, having adequate lighting, wearing seatbelt at all times?: No Smokes cigarettes, vapes, or chew tobacco: No Eats healthy foods including fruits, vegetables, whole grains, and fiber-rich foods: Nearly every day Number of days per week engages in exercise: 4 days Average alcohol consumption: 2-4 times a month Current Providers Specialists: I have reviewed specialist-related care of the patient in the medical record. Current care team: Patient Care Team: Giovanni Presley MD as PCP - General Outside specialists seen: Dr. Meyer - Reconciliation Coordinator Dr. Berry Falk - Optometry. Dr. Ashraf - Cementer Machine Joiner Dr. Esteban- ENT (nosebleed). Medical/Family history review Reviewed and updated problem list, medical/surgical/family/social history, medications, and allergies. Opioid use review Patient is not currently using opioids. Depression screening Depression Screening PHQ-2 Score PHQ-9 Score 11/22/2022 0 0 Depression screening tool completed and reviewed. Based on score and interview, patient is not at risk for depression. Screening tool discussed with patient, and I recommended no further interventionat this time. Cognitive screening Mini Cog Score: 5 Functional Observation Was the patient's timed Up & Go test unsteady or ? 12 seconds? No Advance Care Planning End of Life planning discussed, including patient's advanced directive wishes: Yes Measurements BP 122/68 Pulse 56 Resp 12 Ht 5' 10.6 (1.79m) Wt 186 lb 12.8 oz (84.7kg) BMI 26.36 kg/(m^2). Visual acuity (required for Welcome to Medicare): follows with optometry/ophthalmology, screening completed today, and Right: 20/40 Left: 20/ 30 Both: 20/50 Hearing Evaluation: within normal limits Assessment/Plan Medicare annual wellness visit, subsequent (Z00.00) - Counseled on healthy diet and regular exercise - Fall avoidance - Vaccines recommended COVID-19 - Depression screening [facility] [place] Miscellaneous Notes* Telephone Encounter - Son Biggs Ma - 10/24/2022 9:01 AM EDT KYUNG: 06/09/2022 Last refill: 10/25/2021 QTY: 90 Refills: 3 Patient's request for medication is as follows: Requested Prescriptions Pending Prescriptions Disp Refills lisinopril (ZESTRIL) 5 mg tablet 90 tablet 3 Sig: Take 1 tablet by mouth once daily. Please approve the above prescription(s) to electronically send to pharmacy. Son Biggs Ma documented in this encounterKing[facility] [place]23 NoteHNO ID: [id number] Author: Richard Dobson PA-C Service: ? Author Type: Physician Hot Roll Inspector Type: Progress Notes Filed: 08/16/2022 4:07 PM Note Text: [facility] NEW CONSULT PATIENT CLINIC NOTE SERVICE DATE: 08/16/2022 SERVICE TIME: 10:39 AM NAME: Cedrick Mishra Consultation requested by Giovanni Presley MD for an opinion regarding Renal Dysfunction My final recommendations communicated back to the requesting physician by way of our shared Medical record. CHIEF COMPLAINT: Renal Dysfunction HISTORY OF PRESENT ILLNESS: Cedrick Mishra is a 82 year old male with PMH including HTN and Trigeminal Neurologia presenting for New Patient Consult for REnal dysfunction and possible obstructive uropathy His PVR 's have been high for a long time and most of his renal function labs look good except the last month ones, but now have improved again Given his PVR is ) he can urinate a stream and has no feeling of retention, he is likely a high residual volume patient but able to empty well enough to no have chronic retention. LUTS: Other symptoms: LABS: No results found for: TESTOST No results found for: TESTFREE PSA (ng/mL) Date Value 05/31/2018 1.32 01/15/2014 1.15 Hematocrit (%) Date Value 11/04/2021 47.3 07/29/2020 47.3 12/03/2018 46.8 05/24/2017 49.7 PSA (ng/mL) Date Value 05/31/2018 1.32 01/15/2014 1.15 Creatinine Date Value Ref Range Status 06/07/2022 1.22 0.73 - 1.22 mg/dL Final 12/08/2021 1.21 0.73 - 1.22 mg/dL Final 11/04/2021 1.55 (H) 0.73 - 1.22 mg/dL Final 05/13/2021 1.30 (H) 0.73 - 1.22 mg/dL Final MEDICATIONS: tamsulosin (FLOMAX) 0.4 mg Take 1 capsule by mouth daily at bedtime. fluticasone (FLONASE) 50 mcg/actuation nasal spray Use 2 Sprays in each nostril once daily. Rinse mouth after use. (Patient taking differently: Use 2 Sprays in each nostril once daily. Rinse mouth after use. Uses as needed) omeprazole (PRILOSEC) 20 mg capsule Take 1 capsule by mouth daily before breakfast. 1/2 hr before meal. sildenafil (REVATIO) 20 mg tablet Take 2-3 tablets by mouth once daily as needed (erectile dysfunction). gabapentin (NEURONTIN) 300 mg capsule Take 1 capsule by mouth twice daily. (Patient taking differently: Take 300 mg by mouth twice daily. 1-2 times daily as needed) lisinopril (ZESTRIL, PRINIVIL) 5 mg tablet Take 1 tablet by mouth once daily. multivitamin tablet Take 1 tablet by mouth once daily. Alpha Lipoic Acid 600 mg cap Take 600 mg by mouth once daily. nitroglycerin sublingual (NITROQUICK) 0.4 mg SL tablet Dissolve 1 tablet under the tongue every 5 minutes as needed for Chest Pain. pravastatin (PRAVACHOL) 40 mg tablet Take 1 tablet by mouth daily at bedtime. metoprolol tartrate, short acting, 50 mg tablet Take 1 tablet by mouth twice daily. Aspirin 81 mg tab Take 1 tablet by mouth once daily. Take with food. GLUCOSAMINE HCL/CHONDRO STOUT A (GLUCOSAMINE-CHONDROITIN ORAL) Take by mouth once daily. fexofenadine (HUY) 180 mg tablet Take by mouth. (Patient not taking: Reported on 08/16/2022) CLOPIDOGREL BISULFATE (PLAVIX ORAL) Take by mouth once daily. Magnesium Oxide-Mg Amino Acid Chelate 300 mg cap Take 1 capsule by mouth. (Patient not taking: Reported on 06/09/2022) PAST MEDICAL HISTORY: PAST MEDICAL HISTORY Diagnosis Date ABNORMAL FINDINGS-LUNG FIELD 04/27/2006 Granulomas Allergic rhinitis, cause unspecified 04/05/2005 Seasonal, Spring CAD (coronary artery disease) 04/23/2012 Non STEMI, Prom[facility]EST 2nd diagonal. CKD (chronic kidney disease) stage 3, GFR 30-59 ml/min ([facility]) 08/04/2016 Esophageal reflux 04/05/2005 Essential hypertension, benign 04/05/2005 Hemangioma of skin and subcutaneous tissue Hydronephrosis 06/30/2022 Mild left Hydronephrosis of left kidney 07/11/2022 Malignant melanoma of skin of upper limb, including shoulder ([facility]) 1987 left upper arm Obstructive uropathy Other and unspecified hyperlipidemia 04/05/2005 Subluxation of tarsometatarsal joint of right foot 05/31/2017 Dr. Hi, DPM Trigeminal neuralgia Ulcerative (chronic) proctitis ([facility]) 08/2003 Unspecified cardiovascular disease mild CAD PAST SURGICAL HISTORY: PAST SURGICAL HISTORY Procedure Laterality Date COLONOSCOPY FLX DX W/COLLJ SPEC WHEN PFRMD 09/08/2003 Colonoscopy COLONOSCOPY FLX DX W/COLLJ SPEC WHEN PFRMD 03/10/14 Colonoscopy LEFT HEART CATH,PERCUTANEOUS 1995 Cardiac cath, L heart PAST SURGICAL HISTORY OF 1987 excision of left upper arm skin lesion PAST SURGICAL HISTORY OF 06/03/1998 excision of left upper arm skin lesion TONSILLECTOMY PRIMARY/SECONDARY Tonsillectomy TRANSCATH STENT INIT VESSEL,PERCUT 04/24/2012 Transcath stent init vessel percut FAMILY HISTORY: FAMILY HISTORY Problem Relation Age of Onset Cancer Mother ovarian cancer, age 101 None Father age 79 Arthritis Sister (more content not included)...[facility]05-23-2023 NoteHNO ID: [id number] Author: Shaye Lynne LPN Service: ? Author Type: ? Type: Progress Notes Filed: 08/16/2022 4:07 PM Note Text: Verified name and date of . CC Post Void Residual HPI: Cedrick Mishra is a 82 year old male. The patient is here now for an appointment with Richard Dobson, [place], [place], PA-COV. Procedure: Explained procedure to patient and verbalizes understanding. Performed a PVR. Patient urinated and instructed to empty bladder as much as possible just prior to having PVR done using bladder ultrasound scanner. Results of scan: 418 mL The patient tolerated the procedure well. Plan: Appointment with Richard.[facility]05-08-2023 History of Past illness Narrative* Problem Noted Date Diagnosed Date Resolved Date Obstructive uropathy 08/01/2022 024 Hydronephrosis of left kidney 07/11/2022 05/25/2023 Subluxation of tarsometatars al joint of right foot 05/31/2017 05/25/2023 Overview: Dr. Kolton DPM Irritated//Inflamed Seborrheic Keratosis 02/22/2012 01/22/2014 Actinic skin damage 02/22/2012 01/23/20 14 Solar Lentigines 02/22/2012 05/31/2017 Rendon angioma 02/22/2012 01/22/2014 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 MELANOMA ON LEFT ARM//PERS H X SKIN MALIGNANCY NEC 07/14/2008 05/31/2017 Benign neoplasm of skin of t runk, except scrotum 07/31/2007 02/22/2012 ACTINIC DAMAGE///CHR SOLAR SKIN DAMAGE NOS 07/04/2006 10/10/2011 SURGICAL SCAR & FIBROSIS OF SKIN 07/04/2006 10/10/2011 Personal history of malignan t melanoma of skin 07/04/2006 10/10/2011 Other seborrheic keratosis 07/04/2006 0 10/10/2011 SOLAR LENTIGINES///DYSCHROMIA OTHER 07/04/2006 10/10/2011 Other psoriasis 07/04/2006 10/10/2011 Viral warts, unspecified 07/04/2006 IRRITATED//INFLAMED SEBORRHEIC KERATOSIS 07/04/2006 10/10/2011 RENDON ANGIOMA///NEVUS, NON-NEOPLASTIC 07/04/2006 10/10/2011 Nonspecific (abnormal) findi ngs on radiological and other examination of lung field 04/27/2006 06/29/2006 Overview: Granulomas documented as of this encounter (statuses as of 05/25/2023) [facility] [place]05-08-[facility] Miscellaneous Notes* Telephone Encounter - Son Biggs Ma - 08/01/2022 10:44 AM EDT KYUNG: 06/09/2022 Last refill: 08/04/2021 QTY: 90 Refills: 3 Patient's request for medication is as follows: Requested Prescriptions Pending Prescriptions Disp Refills tamsulosin (FLOMAX) 0.4 mg 90 capsule 3 Sig: Take 1 capsule by mouth daily at bedtime. Please approve the above prescription(s) to electronically send to pharmacy. Son Biggs Ma documented in this encounterKing[facility] [place]04-06-2023 NoteHNO ID: [id number] Author: Karin Farmer RDMS Service: ? Author Type: Rental Sales Representative Type: Progress Notes Filed: 06/30/2022 9:24 AM Note Text: Radiology Service Progress Note PATIENT NAME: Cedrick Mishra DATE OF SERVICE: June 30, 2022 TIME: 9:24 AM PATIENT IDENTITY VERIFICATION COMPLETED USING TWO (2) IDENTIFIERS: Name and Date of confirmed by patient verbally. FALL SCREENING: Has the patient had 2 falls in the last year or 1 fall with injury or currently using an Ambulatory Assistive Device (Walker, Cane, Wheelchair, Crutches, etc.)? No PATIENT GENDER DATA: Male PATIENT RELEVANT IMPLANT DATA REVIEWED: Not Applicable RADIOLOGY DEPARTMENT: Ultrasound PERIPHERAL IV DATA: Not applicable SIGNED BY: Karin Farmer RDMS June 30, 2022 9:24 [facility]04-06-2023 History of Present illness Narrative* Karin Farmer RDMS - 06/30/2022 9:15 AM EDT Radiology Service Progress Note PATIENT NAME: Cedrick Mishra DATE OF SERVICE: June 30, 2022 TIME: 9:24 AM PATIENT IDENTITY VERIFICATION COMPLETED USING TWO (2) IDENTIFIERS: Name and Date of confirmedby patient verbally. FALL SCREENING: Has the patient had 2 falls in the last year or 1 fall with injury or currently using an Ambulatory Assistive Device (Walker, Cane, Wheelchair, Crutches, etc.)? No PATIENT GENDER DATA: Male PATIENT RELEVANT IMPLANT DATA REVIEWED: Not Applicable RADIOLOGY DEPARTMENT: Ultrasound PERIPHERAL IV DATA: Not applicable SIGNED BY: Karin Farmer RDMS June 30, 2022 9:24 AM documented in this encounterKing[facility] [place]03-16-2023 NoteHNO ID: [id number] Author: Giovanni Presley MD Service: ? Author Type: Physician Type: Progress Notes Filed: 06/09/2022 12:13 PM Note Text: This note was created using [email or web address]. Subjective Cedrick Mishra is a 82 year old male. His blood pressure was staying controlled off hydrochlorothiazide. We reviewed his renal function. Review of Systems Constitutional: Negative. Genitourinary: Negative. Neurological: Negative. ACTIVE PROBLEM LIST Esophageal Reflux Essential Hypertension, Benign Allergic Rhinitis Hyperlipidemia Trigeminal Neuralgia Actinic keratosis. Impotence of Organic Origin Other Seborrheic Keratosis Cad (Coronary Artery Disease) Ckd (Chronic Kidney Disease) Stage 3, Gfr 30-59 Ml/Min ([facility]) Subluxation of Tarsometatarsal Joint of Right Foot Bph With Obstruction/Lower Urinary Tract Symptoms Social History Tobacco Use Smoking status: Never Smokeless tobacco: Never Vaping Use Vaping Use: Never used Substance Use Topics Alcohol use: Yes Alcohol/week: 2.0 standard drinks Types: 2 Cans of Beer (12oz) per week Drug use: No Objective BP 126/58 (BP Site: Right Arm, BP Position: Sitting) Pulse (!) 56 Resp 16 Wt 88 kg (194 lb) BMI 26.68 kg/m? Physical Exam Constitutional: Appearance: He is not ill-appearing. Cardiovascular: Rate and Rhythm: Bradycardia present. Pulmonary: Breath sounds: Normal breath sounds. Neurological: Mental Status: He is alert. Component Latest Ref Rng AND Units 06/07/2022 Glucose 74 - 99 mg/dL 95 BUN 9 - 24 mg/dL 24 Creatinine 0.73 - 1.22 mg/dL 1.22 Sodium 136 - 144 mmol/L 140 Potassium 3.7 - 5.1 mmol/L 4.3 Chloride 97 - 105 mmol/L 104 CO2 22 - 30 mmol/L 25 Anion Gap 9 - 18 mmol/L 11 Calcium 8.5 - 10.2 mg/dL 9.8 eGFR >=60 mL/min/1.73mA? 58 (L) Assessment and Plan 1. Stage 3a chronic kidney disease (HCC) - ICD9: 585.3, ICD10: N18.31 (primary diagnosis) - eGFR: Stable - Counseled on avoiding regular use of NSAIDs, adequate hydration, potential risk of IV dye - US KIDNEY/BLADDER. We discussed ruling out anatomical factors affecting kidney function. 2. Essential hypertension, benign - ICD9: 401.1, ICD10: I10 - good control - Continue current medication(s) - Goal of BP <130/80 Giovanni Presley [facility]03-16-2023 History of Present illness Narrative* Giovanni Presley MD - 06/09/2022 11:55 AM EDT This note was created using NoteWriter. Subjective Cedrick Mishra is a 82 year old male. His blood pressure was staying controlled off hydrochlorothiazide. We reviewed his renal function. Review of Systems Constitutional: Negative. Genitourinary: Negative. Neurological: Negative. ACTIVE PROBLEM LIST Esophageal Reflux Essential Hypertension, Benign Allergic Rhinitis Hyperlipidemia Trigeminal Neuralgia Actinic keratosis. 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 Cardiovascular: Rate and Rhythm: Bradycardia present. Pulmonary: Breath sounds: Normal breath sounds. Neurological: Mental Status: He is alert. Component Latest Ref Rng & Units 06/07/2022 Glucose 74 - 99 mg/dL 95 BUN 9 - 24 mg/dL 24 Creatinine 0.73 - 1.22 mg/dL 1.22 Sodium 136 - 144 mmol/L 140 Potassium 3.7 - 5.1 mmol/L 4.3 Chloride 97 - 105 mmol/L 104 CO2 22 - 30 mmol/L 25 Anion Gap 9 - 18 mmol/L 11 Calcium 8.5 - 10.2 mg/dL 9.8 eGFR >=60 mL/min/1.73m 58 (L) Assessment and Plan 1. Stage 3a chronic kidney disease (HCC) - ICD9: 585.3, ICD10: N18.31 (primary diagnosis) - eGFR: Stable - Counseled on avoiding regular use of NSAIDs, adequate hydration, potential risk of IV dye - US KIDNEY/BLADDER. We discussed ruling out anatomical factors affecting kidney function. 2. Essential hypertension, benign - ICD9: 401.1, ICD10: I10 - good control - Continue current medication(s) - Goal of BP <130/80 Giovanni Presley MD documented in this encounterKing[facility] [place]03-[facility]23 Evaluation note* Diagnosis Stage 3a chronic kidney disease (HCC)- Primary Essential hypertension, benign documented in this encounter [facility] [place]03-16-2023 Reason for referral (narrative)* Diagnostic Procedure Only (Routine) - Pending Review Specialty Diagnoses / Procedures Referred By Contcrispin t Referred To Contact US IMAGING Diagnoses Stage 3a chronic kidney disease (HCC) Procedures US KIDNEY/BLADDER US RETROPERITONEAL REAL TIME W/IMAGE COMPLETE Giovanni Presley MD [address] [place] [address] Us Imaging Referral ID Status Reason Start Date Expiration Date Visits Requested Visits Authorized [id number] Pending Review Auto-Generat ed Referral 06/09/2022 07/09/2023 1 1 [facility]03-06-2023 Miscellaneous Notes* Telephone Encounter - Son Biggs Ma - 05/30/2022 2:08 PM EST KYUNG: 05/17/2022 omeprazole Last refill: 08/24/2021 QTY: 90 Refills: 1 flonase Last refill: 07/05/2021 QTY: 1 Refills: 11 documented in this encounterKing[facility] [place]-21-2023 Instructions* Patient Instructions* Giovanni Presley MD - 05/17/2022 8:55 AM EST NON FASTING BLOOD WORK 2 DAYS BEFORE THIS MONTH'S RECHECK. STOP hydrochlorothiazide. documented in this encounterKing[facility] [place]02-[facility]-2023 History of Present illness Narrative* Giovanni Presley MD - 05/17/2022 8:43 AM EST This note was created using [email or web address]. Subjective Cedrick Mishra is a 81 year old male. He was doing reasonably well. He was less steady on his feet and felt this was from gabapentin. However, neuralgia was still active and bothersome so we agreeddose reduction was not an option at this time. He had a negative stress test last fall. His hypertension was controlled. He exercised by walking at [facility] regularly with some lightweights at home. Review of Systems Constitutional: Negative. Respiratory: Negative. Cardiovascular: Negative. Gastrointestinal: Negative. Musculoskeletal: Negative. Neurological: Negative. ACTIVE PROBLEM LIST Esophageal Reflux Essential Hypertension, Benign Allergic Rhinitis Hyperlipidemia Trigeminal Neuralgia Actinic keratosis. 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 gabapentin (NEURONTIN) 300 mg capsule Take 1 capsule by mouth twice daily. lisinopril (ZESTRIL, PRINIVIL) 5 mg tablet Take 1 tablet by mouth once daily. hydroCHLOROthiazide (HYDRODIURIL, ESIDRIX) 12.5 mg capsule Take 1 capsule by mouth once daily. omeprazole (PRILOSEC) 20 mg capsule Take 1 capsule by mouth daily before breakfast. 1/2 hr before meal. tamsulosin (FLOMAX) 0.4 mg Take 1 capsule by mouth daily at bedtime. fluticasone (FLONASE) 50 mcg/actuation nasal spray Use 2 Sprays in each nostril once daily. Rinse mouth after use. multivitamin tablet Take 1 tablet by mouth once daily. Alpha Lipoic Acid 600 mg cap Take 400 mg by mouth once daily. CLOPIDOGREL BISULFATE (PLAVIX ORAL) Take by mouth once daily. nitroglycerin sublingual (NITROQUICK) 0.4 mg SL tablet Dissolve 1 tablet under the tongue every 5 minutes as needed for Chest Pain. pravastatin (PRAVACHOL) 40 mg tablet Take 1 tablet by mouth daily at bedtime. metoprolol tartrate, short acting, 50 mg tablet Take 1 tablet by mouth twice daily. Aspirin 81 mg tab Take 1 tablet by mouth once daily. Take with food. Magnesium Oxide-Mg Amino Acid Chelate 300 mg cap Take 1 capsule by mouth. GLUCOSAMINE HCL/CHONDRO STOUT A (GLUCOSAMINE-CHONDROITIN ORAL) Take by mouth once daily. No current facility-administered medications for this visit. Objective BP 126/72 (BP Site: Right Arm, BP Position: Sitting, BP Cuff Size: Large Adult) Pulse 60 Temp (!) 35.6 C (96 F) (Temporal) Resp 12 Wt 87.1 kg (192 lb) BMI 26.41 kg/m Physical Exam Constitutional: General: He is not in acute distress. Cardiovascular: Rate and Rhythm: Normal rate and regular rhythm. Heart sounds: No murmur heard. No gallop. Pulmonary: Effort: Pulmonary effort is normal. Breath sounds: Normal breath sounds. Musculoskeletal: Right lower leg: No edema. Left lower leg: No edema. Neurological: General: No focal deficit present. Mental Status: He is alert and oriented to person, place, and time. Gait: Gait abnormal. Comments: Gait cautious. Assessment and Plan 1. Stage 3a chronic kidney disease (HCC) - ICD9: 585.3, ICD10: N18.31 (primary diagnosis) - Shared medical decision making was done and we agreed to discontinue hydrochlorothiazide. - BASIC METABOLIC PNL in 3 weeks. 2. Essential hypertension, benign - ICD9: 401.1, ICD10: I10 - good control - Discontinue HCTZ - Recheck in 3 weeks, sooner should new symptoms or problems arise. - Goal of BP <130/80 3. Other hyperlipidemia - ICD9: 272.4, ICD10: E78.49 Recheck in 6 months. - COMP METABOLIC PANEL - LIPID PANEL BASIC Giovanni Presley MD documented in this encounterKing[facility] [place] Evaluation note* Diagnosis Stage 3a chronic kidney disease (HCC)- Primary Essential hypertension, benign Other hyperlipidemia documented in this encounter [facility] [place]08-16-20[facility] History of Present illness Narrative* Marlys Beck, FINISH GRINDER.MEN'S CUSTOM HAIR PIECE CONSULTANT - 11/09/2021 8:22 AM EDT CC: Patient presents with: Medicare Wellness Exam 6 month f/u HPI Cedrick Mishra is a 81 year old male who presents today for above. Hypertension - BP in office today is stable at 124/74. Pt continues to take lisinopril, hctz and metoprolol for management. He does take his blood pressure at home and readings are consistent with 120-130/70's. He denies any chest pain or pressure, heart palpitations, dizziness, light headedness, headache or blurred vision. He follows with Cardiology. Trigeminal Neuralgia - Pt states he had a flare up on that began this Monday and continues to cause him pain. He notes most of the discomfort on the right side of his face. Pt continues to take Gabapentin for management of his symptoms, which he states works well but does make him feel fatigued. CKD - Kidney function from last week is elevated from baseline. Pt denies any difficulty or pain with urination. He continues to take Flomax daily. REVIEW OF SYSTEMS General: no fevers, no chills, no night sweats, no recurrent infections, no change in appetite, no change in energy, and no significant changes in weight Respiratory: no cough, no wheezing, no shortness of breath, no hemoptysis Cardiovascular: no chest pain, no chest pressure, no palpitations, and no swelling GI: No nausea, vomiting, or diarrhea : No history of dysuria, frequency or incontinence Musculoskeletal: Negative for joint pain or swelling, back pain or muscle pain Endocrine: no fatigue, no weight gain, no weight loss, no hair loss, no dry skin, no cold intolerance, no heat intolerance, no neck pain/pressure, no polyuria, no polyphagia, and no polydipsia PAST MEDICAL HISTORY Diagnosis Date ABNORMAL FINDINGS-LUNG FIELD 04/27/2006 Granulomas Allergic rhinitis, cause unspecified 04/05/2005 Seasonal, Spring CAD (coronary artery disease) 04/23/2012 Non STEMI, Promus FOREST 2nd diagonal. CKD (chronic kidney disease) stage 3, GFR 30-59 ml/min ([facility]) 08/04/2016 Esophageal reflux 04/05/2005 Essential hypertension, benign 04/05/2005 Hemangioma of skin and subcutaneous tissue Malignant melanoma of skin of upper limb, including shoulder ([facility]) 1987 left upper arm Other and unspecified hyperlipidemia 04/05/2005 Subluxation of tarsometatarsal joint of right foot 05/31/2017 Dr. Hi, DPM Trigeminal neuralgia Ulcerative (chronic) proctitis ([facility]) 08/2003 Unspecified cardiovascular disease mild CAD PAST SURGICAL HISTORY Procedure Laterality Date COLONOSCOPY FLX DX W/COLLJ SPEC WHEN PFRMD 09/08/2003 Colonoscopy COLONOSCOPY FLX DX W/COLLJ SPEC WHEN PFRMD 03/10/14 Colonoscopy LEFT HEART CATH,PERCUTANEOUS 1994 Cardiac cath, L heart PAST SURGICAL HISTORY OF 1987 excision of left upper arm skin lesion PAST SURGICAL HISTORY OF 06/03/1998 excision of left upper arm skin lesion TONSILLECTOMY PRIMARY/SECONDARY <AGE 10 1949 Tonsillectomy TRANSCATH STENT INIT VESSEL,PERCUT 04/24/2012 Transcath stent init vessel percut ALLERGIES [employer] MEDICATIONS gabapentin (NEURONTIN) 300 mg capsule Take 1 capsule by mouth twice daily. lisinopril (ZESTRIL, PRINIVIL) 5 mg tablet Take 1 tablet by mouth once daily. hydroCHLOROthiazide (HYDRODIURIL, ESIDRIX) 12.5 mg capsule Take 1 capsule by mouth once daily. omeprazole (PRILOSEC) 20 mg capsule Take 1 capsule by mouth daily before breakfast. 1/2 hr before meal. sildenafil (REVATIO) 20 mg tablet Take 2-3 tablets by mouth once daily as needed (erectile dysfunction). tamsulosin (FLOMAX) 0.4 mg Take 1 capsule by mouth daily at bedtime. fluticasone (FLONASE) 50 mcg/actuation nasal spray Use 2 Sprays in each nostril once daily. Rinse mouth after use. multivitamin tablet Take 1 tablet by mouth once daily. Alpha Lipoic Acid 600 mg cap Take 400 mg by mouth once daily. CLOPIDOGREL BISULFATE (PLAVIX ORAL) Take by mouth once daily. nitroglycerin sublingual (NITROSTAT) 0.4 mg SL tablet Dissolve 1 tablet under the tongue every 5 minutes as needed for Chest Pain. pravastatin (PRAVACHOL) 40 mg tablet Take 1 tablet by mouth daily at bedtime. metoprolol tartrate, short acting, 50 mg tablet Take 1 tablet by mouth twice daily. Aspirin 81 mg tab Take 1 tablet by mouth once daily. Take with food. Magnesium Oxide-Mg Amino Acid Chelate (MAGNESIUM) 300 mg cap Take 1 capsule by mouth. GLUCOSAMINE HCL/CHONDRO STOUT A (GLUCOSAMINE-CHONDROITIN ORAL) Take by mouth once daily. FAMILY HISTORY Problem Relation Age of Onset Cancer Mother ovarian cancer, age 101 None Father age 79 Arthritis Sister Essential Tremor Sister No Known Problems Sister Social History Tobacco Use Smoking status: Never Smokeless tobacco: Never Vaping Use Vaping Use: Never used Substance Use Topics Alcohol use: Yes Alcohol/week: 2.0 standard drinks Types: 2 Cans of Beer (12oz) per week Drug use: No PHYSICAL EXAM BP 124/74 Pulse 68 Resp 12 Ht 181.6 cm (5' 11.5 ) Wt 88.9 kg (196 lb) BMI 26.96 kg/m General Appearance: well appearing, in no acute distress, alert Lungs: Lungs clear to auscultation. No wheezing, rhonchi, rales. Heart: RRR without murmur, gallop, or rubs. No ectopy Health maintenance reviewed with patient: ADVANCE DIRECTIVE DISCUSSION Never done INFLUENZA(1) due on 11/25/2021 LDL CHOLESTEROL due on 07/01/2022 DTAP,TDAP,TD(3 - Tdap) due on 01/18/2023 DIABETES SCREEN due on 11/04/2024 SHINGRIX VACCINE Completed COVID-19 VACCINE Completed PNEUMOCOCCAL: 65+ Completed DATA REVIEWED: Most recent labs ASSESSMENT/PLAN: 1. Medicare annual wellness visit, subsequent - ICD9: V70.0, ICD10: Z00.00 (primary diagnosis) See Medicare wellness note 2. Essential hypertension, benign - ICD9: 401.1, ICD10: I10 - good control - Continue current medication(s) - Recommended regular aerobic exercise. - Recommend home blood pressure monitoring, to bring results in on next visit - Goal of BP <130/80 3. Trigeminal neuralgia - ICD9: 350.1, ICD10: G50.0 - Continue GABAPENTIN 300 MG CAPSULE 4. Stage 3a chronic kidney disease (HCC) - ICD9: 585.3, ICD10: N18.31 (primary diagnosis) - Encourage increase in fluid intake - BASIC METABOLIC PNL Follow up in [address] Presley. Prescription instructions reviewed with patient as applicable. Potential red flag symptoms discussed with the patient. Reviewed appropriate action plan to take if red flag symptoms occur. Patient agreeable to treatment plan. Marlys Beck APRN.CNP * Marlys Beck APRN.CNP - 11/09/2021 8:00 AM EDT Medicare Yearly Visit Medical B eligibilty date 2003 Date of last exam 8/16/21 PAST MEDICAL HISTORY Diagnosis Date ABNORMAL FINDINGS-LUNG FIELD 04/27/2006 Granulomas Allergic rhinitis, cause unspecified 04/05/2005 Seasonal, Spring CAD (coronary artery disease) 04/23/2012 Non STEMI, [facility] 2nd diagonal. CKD (chronic kidney disease) stage 3, GFR 30-59 ml/min ([facility]) 08/04/2016 Esophageal reflux 04/05/2005 Essential hypertension, benign 04/05/2005 Hemangioma of skin and subcutaneous tissue Malignant melanoma of skin of upper limb, including shoulder ([facility]) 1987 left upper arm Other and unspecified hyperlipidemia 04/05/2005 Subluxation of tarsometatarsal joint of right foot 05/31/2017 Dr. Hi, DPM Trigeminal neuralgia Ulcerative (chronic) proctitis ([facility]) 08/2003 Unspecified cardiovascular disease mild CAD PAST SURGICAL HISTORY Procedure Laterality Date COLONOSCOPY FLX DX W/COLLJ SPEC WHEN PFRMD 09/08/2003 Colonoscopy COLONOSCOPY FLX DX W/COLLJ SPEC WHEN PFRMD 03/10/14 Colonoscopy LEFT HEART CATH,PERCUTANEOUS 1994 Cardiac cath, L heart PAST SURGICAL HISTORY OF 1987 excision of left upper arm skin lesion PAST SURGICAL HISTORY OF 06/03/1998 excision of left upper arm skin lesion TONSILLECTOMY PRIMARY/SECONDARY <AGE 10 1949 Tonsillectomy TRANSCATH STENT INIT VESSEL,PERCUT 04/24/2012 Transcath stent init vessel percut ALLERGIES: Cats and Trees Medications reviewed: Yes FAMILY HISTORY Problem Relation Age of Onset Cancer Mother ovarian cancer, age 101 None Father age 79 Arthritis Sister Essential Tremor Sister No Known Problems Sister SOCIAL HISTORY: Social History Tobacco Use Smoking status: Never Smokeless tobacco: Never Vaping Use Vaping Use: Never used Substance Use Topics Alcohol use: Yes Alcohol/week: 2.0 standard drinks Types: 2 Cans of Beer (12oz) per week Drug use: No Cedrick works out regularly 3 times per week with walking. He watches his diet for sodium, low fat and low cholesterol all of the time, most of the time. List of current specialists seen: Dr. Meyer - Reconciliation Coordinator Dr. Falk - Opthalmologist Dr. Ashraf - Cementer Machine Joiner End of Live Planning discussed including patients advanced directive wishes: Yes I am willing to follow Cedrick's advanced directives. Evidence of Cognitive Impairment: No What tool was used to assess the patients cognitive status? Mini Cog Assessment. PHQ-2 / Depression screen He in the past two weeks denies having felt down, depressed, hopeless, or with little interest or pleasure in doing things. Functional Ability/Safety Screen 1. Was the patient's timed Up and Go test unsteady or longer than 30 seconds? No 2. Does the patient need help with the phone, transportation, shopping,preparing meals, housework, laundry, medications or managing money? No 3. Does your home have rugs in the hallway, lack of grab bars in the bathroom, lack of handrails onthe stairs or have poor lighting? No Hearing Evaluation: normal PHYSICAL EXAM BP 124/74 Pulse 68 Resp 12 Ht 181.6 cm (5' 11.5 ) Wt 88.9 kg (196 lb) BMI 26.96 kg/m Alert and oriented X 3: YES Body mass index is 26.96 kg/m . ASSESSMENT/PLAN: 1. Medicare annual wellness visit, subsequent - ICD9: V70.0, ICD10: Z00.00 (primary diagnosis) The following prevention plan was discussed during the office visit and provided to the patient: - fall risk reduction - Counseled on healthy diet and regular exercise - Discussed need for and benefit of weight loss. BMI 26.96 kg/(m^2) - Depression screening tool completed and reviewed with patient. Based on score and interview, patient is not at risk for depression and recommended no further intervention at this time. - Follow up for medicare annual exam in one year Marlys Beck APRN.CNP [facility] [place]* Diagnosis Stage 3a chronic kidney disease (HCC)- Primary documented in this encounter [facility] [place] Miscellaneous Notes* Telephone Encounter - Phyllis Cintron LPN - 10/25/2021 12:53 PM EDT Patient has been identified by name and date of : Yes Patient phones for refill(s): Pending Prescriptions Disp Refills LISINOPRIL 5 MG TABLET 90 tablet 3 Sig: Take 1 tablet by mouth once daily. JENIFFER: No HYDROCHLOROTHIAZIDE 12.5 MG CAPSULE 90 capsule 3 Sig: Take 1 capsule by mouth once daily. JENIFFER: No Date of last office visit in primary care: 05/12/2021 Annual Medicare: 11/09/2021 Last 2 Encounter Wt Readings: Date: Wt: 05/12/2021 91.2 kg (201 lb) 11/09/2020 89.8 kg (198 lb) Previous labs/tests for medication: Blood Pressure: BUN (mg/dL) Date Value 05/13/2021 21 Sodium (mmol/L) Date Value 05/13/2021 140 Last 1 Encounter BP Readings: Date: BP: 05/12/2021 118/58 Please advise. Thank you. Phyllis Cintron LPN documented in this encounterKing[facility] [place] Miscellaneous Notes* Telephone Encounter - Phyllis Cintron LPN - 08/24/2021 1:53 PM EDT Patient has been identified by name and date of : Yes Patient phones for refill(s): Pending Prescriptions Disp Refills OMEPRAZOLE 20 MG CAPSULE,DELAYED RELEASE 90 capsule 1 Sig: Take 1 capsule by mouth daily before breakfast. 1/2 hr before meal. JENIFFER: No Date of last office visit in primary care: 05/12/2021 Annual Medicare: 11/09/2021 Last 2 Encounter Wt Readings: Date: Wt: 05/12/2021 91.2 kg (201 lb) 11/09/2020 89.8 kg (198 lb) Previous labs/tests for medication: Not applicable Please advise. Thank you. Phyllis Cintron LPN documented in this encounterKing[facility] [place] Miscellaneous Notes* Telephone Encounter - Phyllis Cintron LPN - 08/10/2021 8:51 AM EDT Patient has been identified by name and date of : Yes Patient phones for refill(s): Pending Prescriptions Disp Refills SILDENAFIL (PULMONARY HYPERTENSION) 20 MG TABLET 12 tablet 2 Sig: Take 2-3 tablets by mouth once daily as needed (erectile dysfunction). JENIFFER: No Date of last office visit in primary care: 05/12/2021 Annual Medicare: 11/09/2021 Last 2 Encounter Wt Readings: Date: Wt: 05/12/2021 91.2 kg (201 lb) 11/09/2020 89.8 kg (198 lb) Previous labs/tests for medication: Not applicable Please advise. Thank you. Phyllis Cintron LPN documented in this encounterKing[facility] [place] Miscellaneous Notes* Telephone Encounter - Phyllis Cintron LPN - 08/03/2021 11:28 AM EDT Patient has been identified by name and date of : Yes Patient phones for refill(s): Pending Prescriptions Disp Refills TAMSULOSIN 0.4 MG CAPSULE 90 capsule 3 Sig: Take 1 capsule by mouth daily at bedtime. JENIFFER: No Date of last office visit in primary care: 05/12/2021 Annual Medicare: 11/09/2021 Last 2 Encounter Wt Readings: Date: Wt: 05/12/2021 91.2 kg (201 lb) 11/09/2020 89.8 kg (198 lb) Previous labs/tests for medication: Not applicable Please advise. Thank you. 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 MELANOMA ON LEFT ARM//PERS HX SKIN MALIGNANCY NE C 07/14/2008 05/31/2017 Benign neoplasm of skin of trunk, except scrotum 07/31/2007 02/22/2012 ACTINIC DAMAGE///CHR SOLAR SKIN DAMAGE NOS 07/0410/10/2011 SURGICAL SCAR & FIBROSIS OF SKIN 07/04/2006 10/10/2011 Personal history of malignant melanoma of skin 0 07/04/2006 10/10/2011 Other seborrheic keratosis 07/04/200610/09 SOLAR LENTIGINES///DYSCHROMIA OTHER 07/04/2006 10/10/2011 Other psoriasis 07/04/2006 10/10/2011 Viral warts, unspecified 07/04/2006 012 IRRITATED//INFLAMED SEBORRHEIC KERATOSIS 007 10/10/2011 RENDON ANGIOMA///NEVUS, NON-NEOPLASTIC 7 10/10/2011 Nonspecific (abnormal) findi ngs on radiological and other examination of lung field 04/27/2006 06/29/2006 Overview: Granulomas documented as of this encounter (statuses as of 08/04/2021) [facility] [place] History of Past illness Narrative* Problem Noted Date Resolved Date Irritated//Inflamed Seborrheic Keratosis 012 01/22/2014 Actinic skin damage 02/22/2012 01/22/2014 Solar Lentigines 02/22/2012 05/31/2017 Rendon angioma 02/22/2012 01/22/2014 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 MELANOMA ON LEFT ARM//PERS HX SKIN MALIGNANCY NE C 07/14/2008 05/31/2017 Benign neoplasm of skin of trunk, except scrotum 07/31/2007 02/22/2012 ACTINIC DAMAGE///CHR SOLAR SKIN DAMAGE NOS 07/0410/10/2011 SURGICAL SCAR & FIBROSIS OF SKIN 07/04/2006 10/10/2011 Personal history of malignant melanoma of skin 0 07/04/2006 10/10/2011 Other seborrheic keratosis 07/04/200610/09 SOLAR LENTIGINES///DYSCHROMIA OTHER 07/04/2006 10/10/2011 Other psoriasis 07/04/2006 10/10/2011 Viral warts, unspecified 07/04/2006 012 IRRITATED//INFLAMED SEBORRHEIC KERATOSIS 007 10/10/2011 RENDON ANGIOMA///NEVUS, NON-NEOPLASTIC 7 10/10/2011 Nonspecific (abnormal) findi ngs on radiological and other examination of lung field 04/27/2006 06/29/2006 Overview: Granulomas documented as of this encounter (statuses as of 08/11/2021) [facility] [place] History of Past illness Narrative* Problem Noted Date Resolved Date Irritated//Inflamed Seborrheic Keratosis 012 01/22/2014 Actinic skin damage 02/22/2012 01/22/2014 Solar Lentigines 02/22/2012 05/31/2017 Rendon angioma 02/22/2012 01/22/2014 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 MELANOMA ON LEFT ARM//PERS HX SKIN MALIGNANCY NE C 07/14/2008 05/31/2017 Benign neoplasm of skin of trunk, except scrotum 07/31/2007 02/22/2012 ACTINIC DAMAGE///CHR SOLAR SKIN DAMAGE NOS 07/0410/10/2011 SURGICAL SCAR & FIBROSIS OF SKIN 07/04/2006 10/10/2011 Personal history of malignant melanoma of skin 0 07/04/2006 10/10/2011 Other seborrheic keratosis 07/04/200610/09 SOLAR LENTIGINES///DYSCHROMIA OTHER 07/04/2006 10/10/2011 Other psoriasis 07/04/2006 10/10/2011 Viral warts, unspecified 07/04/2006 012 IRRITATED//INFLAMED SEBORRHEIC KERATOSIS 007 10/10/2011 RENDON ANGIOMA///NEVUS, NON-NEOPLASTIC 7 10/10/2011 Nonspecific (abnormal) findi ngs on radiological and other examination of lung field 04/27/2006 06/29/2006 Overview: Granulomas documented as of this encounter (statuses as of 08/24/2021) [facility] [place] of Past illness Narrative* Problem Noted Date Resolved Date Irritated//Inflamed Seborrheic Keratosis 012 01/22/2014 Actinic skin damage 02/22/2012 01/22/2014 Solar Lentigines 02/22/2012 05/31/2017 Rendon angioma 02/22/2012 01/22/2014 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 MELANOMA ON LEFT ARM//PERS HX SKIN MALIGNANCY NE C 07/14/2008 05/31/2017 Benign neoplasm of skin of trunk, except scrotum 07/31/2007 02/22/2012 ACTINIC DAMAGE///CHR SOLAR SKIN DAMAGE NOS 07/0410/10/2011 SURGICAL SCAR & FIBROSIS OF SKIN 07/04/2006 10/10/2011 Personal history of malignant melanoma of skin 0 07/04/2006 10/10/2011 Other seborrheic keratosis 07/04/200610/09 SOLAR LENTIGINES///DYSCHROMIA OTHER 07/04/2006 10/10/2011 Other psoriasis 07/04/2006 10/10/2011 Viral warts, unspecified 07/04/2006 012 IRRITATED//INFLAMED SEBORRHEIC KERATOSIS 007 10/10/2011 RENDON ANGIOMA///NEVUS, NON-NEOPLASTIC 7 10/10/2011 Nonspecific (abnormal) findi ngs on radiological and other examination of lung field 04/27/2006 06/29/2006 Overview: Granulomas documented as of this encounter (statuses as of 10/25/2021) [facility] [place] of Past illness Narrative* Problem Noted Date Resolved Date Irritated//Inflamed Seborrheic Keratosis 012 01/22/2014 Actinic skin damage 02/22/2012 01/22/2014 Solar Lentigines 02/22/2012 05/31/2017 Rendon angioma 02/22/2012 01/22/2014 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 MELANOMA ON LEFT ARM//PERS HX SKIN MALIGNANCY NE C 07/14/2008 05/31/2017 Benign neoplasm of skin of trunk, except scrotum 07/31/2007 02/22/2012 ACTINIC DAMAGE///CHR SOLAR SKIN DAMAGE NOS 07/0410/10/2011 SURGICAL SCAR & FIBROSIS OF SKIN 07/04/2006 10/10/2011 Personal history of malignant melanoma of skin 0 07/04/2006 10/10/2011 Other seborrheic keratosis 07/04/200610/09 SOLAR LENTIGINES///DYSCHROMIA OTHER 07/04/2006 10/10/2011 Other psoriasis 07/04/2006 10/10/2011 Viral warts, unspecified 07/04/2006 012 IRRITATED//INFLAMED SEBORRHEIC KERATOSIS 007 10/10/2011 RENDON ANGIOMA///NEVUS, NON-NEOPLASTIC 7 10/10/2011 Nonspecific (abnormal) findi ngs on radiological and other examination of lung field 04/27/2006 06/29/2006 Overview: Granulomas documented as of this encounter (statuses as of 11/01/2021) [facility] [place] of Past illness Narrative* Problem Noted Date Resolved Date Irritated//Inflamed Seborrheic Keratosis 012 01/22/2014 Actinic skin damage 02/22/2012 01/22/2014 Solar Lentigines 02/22/2012 05/31/2017 Rendon angioma 02/22/2012 01/22/2014 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 MELANOMA ON LEFT ARM//PERS HX SKIN MALIGNANCY NE C 07/14/2008 05/31/2017 Benign neoplasm of skin of trunk, except scrotum 07/31/2007 02/22/2012 ACTINIC DAMAGE///CHR SOLAR SKIN DAMAGE NOS 07/0410/10/2011 SURGICAL SCAR & FIBROSIS OF SKIN 07/04/2006 10/10/2011 Personal history of malignant melanoma of skin 0 07/04/2006 10/10/2011 Other seborrheic keratosis 07/04/200610/09 SOLAR LENTIGINES///DYSCHROMIA OTHER 07/04/2006 10/10/2011 Other psoriasis 07/04/2006 10/10/2011 Viral warts, unspecified 07/04/2006 012 IRRITATED//INFLAMED SEBORRHEIC KERATOSIS 007 10/10/2011 RENDON ANGIOMA///NEVUS, NON-NEOPLASTIC 7 10/10/2011 Nonspecific (abnormal) findi ngs on radiological and other examination of lung field 04/27/2006 06/29/2006 Overview: Granulomas documented as of this encounter (statuses as of 11/09/2021) [facility] [place] of [facility] illness Narrative* Problem Noted Date Resolved Date Irritated//Inflamed Seborrheic Keratosis 012 01/22/2014 Actinic skin damage 02/22/2012 01/22/2014 Solar Lentigines 02/22/2012 05/31/2017 Rendon angioma 02/22/2012 01/22/2014 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 MELANOMA ON LEFT ARM//PERS HX SKIN MALIGNANCY NE C 07/14/2008 05/31/2017 Benign neoplasm of skin of trunk, except scrotum 07/31/2007 02/22/2012 ACTINIC DAMAGE///CHR SOLAR SKIN DAMAGE NOS 07/0410/10/2011 SURGICAL SCAR & FIBROSIS OF SKIN 07/04/2006 10/10/2011 Personal history of malignant melanoma of skin 0 07/04/2006 10/10/2011 Other seborrheic keratosis 07/04/200610/09 SOLAR LENTIGINES///DYSCHROMIA OTHER 07/04/2006 10/10/2011 Other psoriasis 07/04/2006 10/10/2011 Viral warts, unspecified 07/04/2006 012 IRRITATED//INFLAMED SEBORRHEIC KERATOSIS 007 10/10/2011 RENDON ANGIOMA///NEVUS, NON-NEOPLASTIC 7 10/10/2011 Nonspecific (abnormal) findi ngs on radiological and other examination of lung field 04/27/2006 06/29/2006 Overview: Granulomas documented as of this encounter (statuses as of 05/17/2022) [facility] [place] of Past illness Narrative* Problem Noted Date Resolved Date Irritated//Inflamed Seborrheic Keratosis 012 01/22/2014 Actinic skin damage 02/22/2012 01/22/2014 Solar Lentigines 02/22/2012 05/31/2017 Rendon angioma 02/22/2012 01/22/2014 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 MELANOMA ON LEFT ARM//PERS HX SKIN MALIGNANCY NE C 07/14/2008 05/31/2017 Benign neoplasm of skin of trunk, except scrotum 07/31/2007 02/22/2012 ACTINIC DAMAGE///CHR SOLAR SKIN DAMAGE NOS 07/0410/10/2011 SURGICAL SCAR & FIBROSIS OF SKIN 07/04/2006 10/10/2011 Personal history of malignant melanoma of skin 0 07/04/2006 10/10/2011 Other seborrheic keratosis 07/04/200610/09 SOLAR LENTIGINES///DYSCHROMIA OTHER 07/04/2006 10/10/2011 Other psoriasis 07/04/2006 10/10/2011 Viral warts, unspecified 07/04/2006 012 IRRITATED//INFLAMED SEBORRHEIC KERATOSIS 007 10/10/2011 RENDON ANGIOMA///NEVUS, NON-NEOPLASTIC 7 10/10/2011 Nonspecific (abnormal) findi ngs on radiological and other examination of lung field 04/27/2006 06/29/2006 Overview: Granulomas documented as of this encounter (statuses as of 05/31/2022) [facility] [place] of Past illness Narrative* Problem Noted Date Resolved Date Irritated//Inflamed Seborrheic Keratosis 012 01/22/2014 Actinic skin damage 02/22/2012 01/22/2014 Solar Lentigines 02/22/2012 05/31/2017 Rendon angioma 02/22/2012 01/22/2014 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 MELANOMA ON LEFT ARM//PERS HX SKIN MALIGNANCY NE C 07/14/2008 05/31/2017 Benign neoplasm of skin of trunk, except scrotum 07/31/2007 02/22/2012 ACTINIC DAMAGE///CHR SOLAR SKIN DAMAGE NOS 07/0410/10/2011 SURGICAL SCAR & FIBROSIS OF SKIN 07/04/2006 10/10/2011 Personal history of malignant melanoma of skin 0 07/04/2006 10/10/2011 Other seborrheic keratosis 07/04/200610/09 SOLAR LENTIGINES///DYSCHROMIA OTHER 07/04/2006 10/10/2011 Other psoriasis 07/04/2006 10/10/2011 Viral warts, unspecified 07/04/2006 012 IRRITATED//INFLAMED SEBORRHEIC KERATOSIS 007 10/10/2011 RENDON ANGIOMA///NEVUS, NON-NEOPLASTIC 7 10/10/2011 Nonspecific (abnormal) findi ngs on radiological and other examination of lung field 04/27/2006 06/29/2006 Overview: Granulomas documented as of this encounter (statuses as of 06/09/2022) [facility] [place] of Past illness Narrative* Problem Noted Date Resolved Date Irritated//Inflamed Seborrheic Keratosis 012 01/22/2014 Actinic skin damage 02/22/2012 01/22/2014 Solar Lentigines 02/22/2012 05/31/2017 Rendon angioma 02/22/2012 01/22/2014 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 MELANOMA ON LEFT ARM//PERS HX SKIN MALIGNANCY NE C 07/14/2008 05/31/2017 Benign neoplasm of skin of trunk, except scrotum 07/31/2007 02/22/2012 ACTINIC DAMAGE///CHR SOLAR SKIN DAMAGE NOS 07/0410/10/2011 SURGICAL SCAR & FIBROSIS OF SKIN 07/04/2006 10/10/2011 Personal history of malignant melanoma of skin 0 07/04/2006 10/10/2011 Other seborrheic keratosis 07/04/200610/09 SOLAR LENTIGINES///DYSCHROMIA OTHER 07/04/2006 10/10/2011 Other psoriasis 07/04/2006 10/10/2011 Viral warts, unspecified 07/04/2006 012 IRRITATED//INFLAMED SEBORRHEIC KERATOSIS 007 10/10/2011 RENDON ANGIOMA///NEVUS, NON-NEOPLASTIC 7 10/10/2011 Nonspecific (abnormal) findi ngs on radiological and other examination of lung field 04/27/2006 06/29/2006 Overview: Granulomas documented as of this encounter (statuses as of 08/01/2022) [facility] [place] History of Past illness Narrative* Problem Noted Date Diagnosed Date Resolved Date Irritated//Inflamed Seborrheic Keratosis 02/22/2012 01/22/2014 Actinic skin damage 02/22/2012 01/23/20 14 Solar Lentigines 02/22/2012 05/31/2017 Rendon angioma 02/22/2012 01/22/2014 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 MELANOMA ON LEFT ARM//PERS H X SKIN MALIGNANCY NEC 07/14/2008 05/31/2017 Benign neoplasm of skin of t runk, except scrotum 07/31/2007 02/22/2012 ACTINIC DAMAGE///CHR SOLAR SKIN DAMAGE NOS 07/04/2006 10/10/2011 SURGICAL SCAR & FIBROSIS OF SKIN 07/04/2006 10/10/2011 Personal history of malignan t melanoma of skin 07/04/2006 10/10/2011 Other seborrheic keratosis 07/04/2006 0 10/10/2011 SOLAR LENTIGINES///DYSCHROMIA OTHER 07/04/2006 10/10/2011 Other psoriasis 07/04/2006 10/10/2011 Viral warts, unspecified 07/04/2006 IRRITATED//INFLAMED SEBORRHEIC KERATOSIS 07/04/2006 10/10/2011 RENDON ANGIOMA///NEVUS, NON-NEOPLASTIC 07/04/2006 10/10/2011 Nonspecific (abnormal) findi ngs on radiological and other examination of lung field 04/27/2006 06/29/2006 Overview: Granulomas documented as of this encounter (statuses as of 10/25/2022) [facility] [place] of Past illness Narrative* Problem Noted Date Diagnosed Date Resolved Date Irritated//Inflamed Seborrheic Keratosis 02/22/2012 01/22/2014 Actinic skin damage 02/22/2012 01/23/20 14 Solar Lentigines 02/22/2012 05/31/2017 Rendon angioma 02/22/2012 01/22/2014 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 MELANOMA ON LEFT ARM//PERS H X SKIN MALIGNANCY NEC 07/14/2008 05/31/2017 Benign neoplasm of skin of t runk, except scrotum 07/31/2007 02/22/2012 ACTINIC DAMAGE///CHR SOLAR SKIN DAMAGE NOS 07/04/2006 10/10/2011 SURGICAL SCAR & FIBROSIS OF SKIN 07/04/2006 10/10/2011 Personal history of malignan t melanoma of skin 07/04/2006 10/10/2011 Other seborrheic keratosis 07/04/2006 0 10/10/2011 SOLAR LENTIGINES///DYSCHROMIA OTHER 07/04/2006 10/10/2011 Other psoriasis 07/04/2006 10/10/2011 Viral warts, unspecified 07/04/2006 IRRITATED//INFLAMED SEBORRHEIC KERATOSIS 07/04/2006 10/10/2011 RENDON ANGIOMA///NEVUS, NON-NEOPLASTIC 07/04/2006 10/10/2011 Nonspecific (abnormal) findi ngs on radiological and other examination of lung field 04/27/2006 06/29/2006 Overview: Granulomas documented as of this encounter (statuses as of 11/23/2022) [facility] [place] History of Past illness Narrative* Problem Noted Date Diagnosed Date Resolved Date Irritated//Inflamed Seborrheic Keratosis 02/22/2012 01/22/2014 Actinic skin damage 02/22/2012 01/23/20 14 Solar Lentigines 02/22/2012 05/31/2017 Rnedon angioma 02/22/2012 01/22/2014 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 MELANOMA ON LEFT ARM//PERS H X SKIN MALIGNANCY NEC 07/14/2008 05/31/2017 Benign neoplasm of skin of t runk, except scrotum 07/31/2007 02/22/2012 ACTINIC DAMAGE///CHR SOLAR SKIN DAMAGE NOS 07/04/2006 10/10/2011 SURGICAL SCAR & FIBROSIS OF SKIN 07/04/2006 10/10/2011 Personal history of malignan t melanoma of skin 07/04/2006 10/10/2011 Other seborrheic keratosis 07/04/2006 0 10/10/2011 SOLAR LENTIGINES///DYSCHROMIA OTHER 07/04/2006 10/10/2011 Other psoriasis 07/04/2006 10/10/2011 Viral warts, unspecified 07/04/2006 IRRITATED//INFLAMED SEBORRHEIC KERATOSIS 07/04/2006 10/10/2011 RENDON ANGIOMA///NEVUS, NON-NEOPLASTIC 07/04/2006 10/10/2011 Nonspecific (abnormal) findi ngs on radiological and other examination of lung field 04/27/2006 06/29/2006 Overview: Granulomas documented as of this encounter (statuses as of 01/03/2023) [facility] [place]11-28-2012 History of Past illness Narrative* Problem Noted Date Diagnosed Date Resolved Date Irritated//Inflamed Seborrheic Keratosis 02/22/2012 01/22/2014 Actinic skin damage 02/22/2012 01/23/20 14 Solar Lentigines 02/22/2012 05/31/2017 Rendon angioma 02/22/2012 01/22/2014 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 MELANOMA ON LEFT ARM//PERS H X SKIN MALIGNANCY NEC 07/14/2008 05/31/2017 Benign neoplasm of skin of t runk, except scrotum 07/31/2007 02/22/2012 ACTINIC DAMAGE///CHR SOLAR SKIN DAMAGE NOS 07/04/2006 10/10/2011 SURGICAL SCAR & FIBROSIS OF SKIN 07/04/2006 10/10/2011 Personal history of malignan t melanoma of skin 07/04/2006 10/10/2011 Other seborrheic keratosis 07/04/2006 0 10/10/2011 SOLAR LENTIGINES///DYSCHROMIA OTHER 07/04/2006 10/10/2011 Other psoriasis 07/04/2006 10/10/2011 Viral warts, unspecified 07/04/2006 IRRITATED//INFLAMED SEBORRHEIC KERATOSIS 07/04/2006 10/10/2011 RENDON ANGIOMA///NEVUS, NON-NEOPLASTIC 07/04/2006 10/10/2011 Nonspecific (abnormal) findi ngs on radiological and other examination of lung field 04/27/2006 06/29/2006 Overview: Granulomas documented as of this encounter (statuses as of 01/23/2023) [facility] [place]11-28-2012 History of Past illness Narrative* Problem Noted Date Diagnosed Date Resolved Date Irritated//Inflamed Seborrheic Keratosis 02/22/2012 01/22/2014 Actinic skin damage 02/22/2012 01/23/20 14 Solar Lentigines 02/22/2012 05/31/2017 Rendon angioma 02/22/2012 01/22/2014 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 MELANOMA ON LEFT ARM//PERS H X SKIN MALIGNANCY NEC 07/14/2008 05/31/2017 Benign neoplasm of skin of t runk, except scrotum 07/31/2007 02/22/2012 ACTINIC DAMAGE///CHR SOLAR SKIN DAMAGE NOS 07/04/2006 10/10/2011 SURGICAL SCAR & FIBROSIS OF SKIN 07/04/2006 10/10/2011 Personal history of malignan t melanoma of skin 07/04/2006 10/10/2011 Other seborrheic keratosis 07/04/2006 0 10/10/2011 SOLAR LENTIGINES///DYSCHROMIA OTHER 07/04/2006 10/10/2011 Other psoriasis 07/04/2006 10/10/2011 Viral warts, unspecified 07/04/2006 IRRITATED//INFLAMED SEBORRHEIC KERATOSIS 07/04/2006 10/10/2011 RENDON ANGIOMA///NEVUS, NON-NEOPLASTIC 07/04/2006 10/10/2011 Nonspecific (abnormal) findi ngs on radiological and other examination of lung field 04/27/2006 06/29/2006 Overview: Granulomas documented as of this encounter (statuses as of 01/29/2023) [facility] [place]11-28-2012 History of Past illness Narrative* Problem Noted Date Diagnosed Date Resolved Date Irritated//Inflamed Seborrheic Keratosis 02/22/2012 01/22/2014 Actinic skin damage 02/22/2012 01/23/20 14 Solar Lentigines 02/22/2012 05/31/2017 Rendon angioma 02/22/2012 01/22/2014 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 MELANOMA ON LEFT ARM//PERS H X SKIN MALIGNANCY NEC 07/14/2008 05/31/2017 Benign neoplasm of skin of t runk, except scrotum 07/31/2007 02/22/2012 ACTINIC DAMAGE///CHR SOLAR SKIN DAMAGE NOS 07/04/2006 10/10/2011 SURGICAL SCAR & FIBROSIS OF SKIN 07/04/2006 10/10/2011 Personal history of malignan t melanoma of skin 07/04/2006 10/10/2011 Other seborrheic keratosis 07/04/2006 0 10/10/2011 SOLAR LENTIGINES///DYSCHROMIA OTHER 07/04/2006 10/10/2011 Other psoriasis 07/04/2006 10/10/2011 Viral warts, unspecified 07/04/2006 IRRITATED//INFLAMED SEBORRHEIC KERATOSIS 07/04/2006 10/10/2011 RENDON ANGIOMA///NEVUS, NON-NEOPLASTIC 07/04/2006 10/10/2011 Nonspecific (abnormal) findi ngs on radiological and other examination of lung field 04/27/2006 06/29/2006 Overview: Granulomas documented as of this encounter (statuses as of 02/08/2023) [facility] [place]-28-2012 History of Past illness Narrative* Problem Noted Date Diagnosed Date Resolved Date Irritated//Inflamed Seborrheic Keratosis 02/22/2012 01/22/2014 Actinic skin damage 02/22/2012 01/23/20 14 Solar Lentigines 02/22/2012 05/31/2017 Rendon angioma 02/22/2012 01/22/2014 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 MELANOMA ON LEFT ARM//PERS H X SKIN MALIGNANCY NEC 07/14/2008 05/31/2017 Benign neoplasm of skin of t runk, except scrotum 07/31/2007 02/22/2012 ACTINIC DAMAGE///CHR SOLAR SKIN DAMAGE NOS 07/04/2006 10/10/2011 SURGICAL SCAR & FIBROSIS OF SKIN 07/04/2006 10/10/2011 Personal history of malignan t melanoma of skin 07/04/2006 10/10/2011 Other seborrheic keratosis 07/04/2006 0 10/10/2011 SOLAR LENTIGINES///DYSCHROMIA OTHER 07/04/2006 10/10/2011 Other psoriasis 07/04/2006 10/10/2011 Viral warts, unspecified 07/04/2006 IRRITATED//INFLAMED SEBORRHEIC KERATOSIS 07/04/2006 10/10/2011 RENDON ANGIOMA///NEVUS, NON-NEOPLASTIC 07/04/2006 10/10/2011 Nonspecific (abnormal) findi ngs on radiological and other examination of lung field 04/27/2006 06/29/2006 Overview: Granulomas documented as of this encounter (statuses as of 02/27/2023) [facility] Diagnosis BPH with obstruction/lower urinary tract symptoms Hypertrophy of prostate with urinary obstruction and other lower urinary tract symptoms (LUTS) documented [facility]* Diagnosis Impotence of organic origin documented in this encounter [facility] Diagnosis Gastroesophageal reflux disease, unspecified whether esophagitis present [facility] Diagnosis Medicare annual wellness visit, subsequent- Primary Routine general medical examination at a health care facility Essential hypertension, benign Trigeminal neuralgia Stage 3a chronic kidney disease (HCC) [facility]* Diagnosis Gastroesophageal reflux disease, unspecified whether esophagitis present [facility] Diagnosis BPH with obstruction/lower urinary tract symptoms Hypertrophy of prostate with urinary obstruction and other lower urinary tract symptoms (LUTS) documented [facility] Diagnosis Medicare annual wellness visit, subsequent- Primary Routine general medical examination at a health care facility Trigeminal neuralgia Essential hypertension, benign Other hyperlipidemia Coronary artery disease involving [place] heart without angina pectoris, unspecified vessel or lesion type Stage 3a chronic kidney disease (HCC) BPH with obstruction/lower urinary tract symptoms Hypertrophy of prostate with urinary obstruction and other lower urinary tract symptoms (LUTS) [facility] Diagnosis Impotence of organic origin [facility] Diagnosis Stage 3a chronic kidney disease (HCC)- Primary Other hyperlipidemia Essential hypertension, benign documented in this encounter [facility] Advance Directives Documents on File Type Date Recorded 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 Advance Directive(s) 07/30/2015 11:53 AM Documents on File Type Date Recorded 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 Advance Directive(s) 07/30/2015 11:53 AM Summary Purpose Family History No Family History Records Found Additional Source Comments Source Comments (unrecognize d section and content) In the event this informatio n is protected by the Federal Confidentiality of Alcohol and Drug Abuse Patient Records regulations: The Federal rules restrict any use of the information to criminally investigate or prosecute any alcohol or drug abuse patient.[facility] the event this information is protected by the Federal Confidentiality of Alcohol and Drug Abuse Patient Records regulations: The Federal rules restrict any use of the information to criminally investigate or prosecute any alcohol or drug abuse patient.[facility] the event this information is protected by the Federal Confidentiality of Alcohol and Drug Abuse Patient Records regulations: The Federal rules restrict any use of the information to criminally investigate or prosecute any alcohol or drug abuse patient.[facility] [place] the event this information is protected by the Federal Confidentiality of Alcohol and Drug Abuse Patient Records regulations: The Federal rules restrict any use of the information to criminally investigate or prosecute any alcohol or drug abuse patient.[facility] [place] the event this information is protected by the Federal Confidentiality of Alcohol and Drug Abuse Patient Records regulations: The Federal rules restrict any use of the information to criminally investigate or prosecute any alcohol or drug abuse patient.[facility] [place] the event this information is protected by the Federal Confidentiality of Alcohol and Drug Abuse Patient Records regulations: The Federal rules restrict any use of the information to criminally investigate or prosecute any alcohol or drug abuse patient.[facility] [place] the event this information is protected by the Federal Confidentiality of Alcohol and Drug Abuse Patient Records regulations: The Federal rules restrict any use of the information to criminally investigate or prosecute any alcohol or drug abuse patient.[facility] [place] the event this information is protected by the Federal Confidentiality of Alcohol and Drug Abuse Patient Records regulations: The Federal rules restrict any use of the information to criminally investigate or prosecute any alcohol or drug abuse patient.[facility] [place] the event this information is protected by the Federal Confidentiality of Alcohol and Drug Abuse Patient Records regulations: The Federal rules restrict any use of the information to criminally investigate or prosecute any alcohol or drug abuse patient.[facility] [place] the event this information is protected by the Federal Confidentiality of Alcohol and Drug Abuse Patient Records regulations: The Federal rules restrict any use of the information to criminally investigate or prosecute any alcohol or drug abuse patient.[facility] [place] the event this information is protected by the Federal Confidentiality of Alcohol and Drug Abuse Patient Records regulations: The Federal rules restrict any use of the information to criminally investigate or prosecute any alcohol or drug abuse patient.[facility] [place] the event this information is protected by the Federal Confidentiality of Alcohol and Drug Abuse Patient Records regulations: The Federal rules restrict any use of the information to criminally investigate or prosecute any alcohol or drug abuse patient.[facility] [place] the event this information is protected by the Federal Confidentiality of Alcohol and Drug Abuse Patient Records regulations: The Federal rules restrict any use of the information to criminally investigate or prosecute any alcohol or drug abuse patient.[facility] [place] the event this information is protected by the Federal Confidentiality of Alcohol and Drug Abuse Patient Records regulations: The Federal rules restrict any use of the information to criminally investigate or prosecute any alcohol or drug abuse patient.[facility] [place] the event this information is protected by the Federal Confidentiality of Alcohol and Drug Abuse Patient Records regulations: The Federal rules restrict any use of the information to criminally investigate or prosecute any alcohol or drug abuse patient.[facility] [place] the event this information is protected by the Federal Confidentiality of Alcohol and Drug Abuse Patient Records regulations: The Federal rules restrict any use of the information to criminally investigate or prosecute any alcohol or drug abuse patient.[facility] [place] the event this information is protected by the Federal Confidentiality of Alcohol and Drug Abuse Patient Records regulations: The Federal rules restrict any use of the information to criminally investigate or prosecute any alcohol or drug abuse patient.[facility] [place] the event this information is protected by the Federal Confidentiality of Alcohol and Drug Abuse Patient Records regulations: The Federal rules restrict any use of the information to criminally investigate or prosecute any alcohol or drug abuse patient.[facility] Care Teams (unrecognized sec tion and content) Composing Machine Operator/Tender Relationship Specialty Start Date End Date Giovanni Presley MD [address] [place] [address] PCP - General 03/07/02 Composing Machine Operator/Tender Relationship Specialty Start Date End Date Giovanni Presley MD [address] [place] [address] PCP - General 03/07/02 Composing Machine Operator/Tender Relationship Specialty Start Date End Date Giovanni Presley MD [address] [place] [address] PCP - General 03/07/02 Composing Machine Operator/Tender Relationship Specialty Start Date End Date Giovanni Presley MD [address] [place] [address] PCP - General 03/07/02 Composing Machine Operator/Tender Relationship Specialty Start Date End Date Giovanni Presley MD [address] [place] [address] PCP - General 03/07/02 Composing Machine Operator/Tender Relationship Specialty Start Date End Date Giovanni Presley MD [address] [place] [address] PCP - General 03/07/02 Composing Machine Operator/Tender Relationship Specialty Start Date End Date Giovanni Presley MD [address] [facility] [place] [address] PCP - General 03/07/02 Composing Machine Operator/Tender Relationship Specialty Start Date End Date Giovanni Presley MD [address] [facility] [place] [address] PCP - General 03/07/02 Composing Machine Operator/Tender Relationship Specialty Start Date End Date Giovanni Presley MD [address] [facility] [place] [address] PCP - General 03/07/02 Composing Machine Operator/Tender Relationship Specialty Start Date End Date Giovanni Presley MD [address] [facility] [place] [address] PCP - General 03/07/02 Composing Machine Operator/Tender Relationship Specialty Start Date End Date Giovanni Presley MD [address] [place], [place] [address] PCP - General 03/07/02 Composing Machine Operator/Tender Relationship Specialty Start Date End Date Giovanni Presley MD [address] [place], [place] [id number] PCP - General 03/07/02 Composing Machine Operator/Tender Relationship Specialty Start Date End Date Giovanni Presley MD [address] [place], [place] [address] PCP - General 03/07/02 Composing Machine Operator/Tender Relationship Specialty Start Date End Date Giovanni Presley MD [address] [place], [place] [address] PCP - General 03/07/02 Composing Machine Operator/Tender Relationship Specialty Start Date End Date Giovanni Presley MD [address] [place], [place] [id number] PCP - General 03/07/02 Composing Machine Operator/Tender Relationship Specialty Start Date End Date Giovanni Presley MD [address] [place], [place] [id number] PCP - General 03/07/02 Reason for Visit (unrecogniz ed section and content) Reason Onset Date Comments Refill Request 08/24/2021 Reason Onset Date Comments Refill Request 10/25/2021 Reason Comments Medicare Wellness Exam Reason Comments F/U 6 months Reason Onset Date Comments Refill Request 05/30/2022 Reason Comments 3 week follow-up Reason Onset Date Comments Refill Request 08/01/2022 Reason Onset Date Comments Refill Request 10/22/2022 Reason Comments Radiology US Specialty Diagnoses / Procedures Referred By Contac t Referred To Contact US IMAGING Diagnoses Stage 3a chronic kidney disease (HCC) Procedures US KIDNEY/BLADDER US RETROPERITONEAL REAL TIME W/IMAGE COMPLETE Giovanni Presley MD [address] [place] [address] [place] [id number] Referral ID Status Reason Start Date Expiration Date V isits Requested Visits Authorized [id number] Closed Auto-Generate d Referral 06/09/2022 07/09/2023 1 1 Reason Onset Date Comments Refill Request 02/27/2023 (unrecognized sect ion and content) No Status Records Found INFORMATION SOURCE (unrecogn ized section and content) FOR RECORDS PERTAINING TO PATIENTS WHO ARE OR HAVE BEEN ENROLLED IN A CHEMICAL DEPENDENCY/SUBSTANCEABUSE PROGRAM, SOME INFORMATION MAY BE OMITTED. This clinical summary was aggregated from multiple sources. Caution should be exercised in using it in the provision of clinical care. This summary normalizes information from multiple sources, and as a consequence, information in this document may materially change the coding, format and clinical context of patient data. In addition, data may be omitted in some cases. CLINICAL DECISIONS SHOULD BE BASED ON THE PRIMARY CLINICAL RECORDS. [employer] provides no warranty or guarantee of the accuracy or completeness of information in this document.
[2023-05-29 11:54] LABS: Mucous, Urine 0 SEEN /hpf (<or=2+)
[2023-05-29 12:07] LABS: Color, Urine Yellow (Yellow); Glucose, Dipstick Normal (Normal); Ketone-Dipstick Negative (Negative); Leukocyte Esterase-Dipstick 25 /ul (Negative); Nitrite-Dipstick Negative (Negative); Occult Blood-Urine 50 /ul (Negative); Protein-Dipstick 30 mg/dl (Negative); Urine Bilirubin Dipstick Negative (Negative); Urine Clarity Sl. Cloudy (Clear); Urine Urobilinogen Normal (Normal)
[2023-05-29 12:21] LABS: Bacteria 1+ /hpf (None Seen); Red Blood Cells-Urine 0-5 SEEN /hpf (0-5); Squamous Epithelial Cells - UA 0-5 SEEN /hpf (0-5); White Blood Cells 0-5 SEEN /hpf (0-5)
[2023-05-29] MEDS: Piperacil/Tazobactam 4.5 GM in 0.9% Normal Saline (100mL MB+) 100 ML IV ×2 (12:29→22:42)
--- NOTE | 2023-05-29 13:03 | CT_ITS ---
STUDY: CT ABDOMEN AND PELVIS WITH CONTRAST REASON FOR EXAM: Male, 83 years old. Leukocytosis, elevated bilirubin, abdominal pain RADIATION DOSAGE (If Supplied By Facility): CTDIvol = ( 20.63 ) mGy, DLP = ( 857.34 ) mGycm TECHNIQUE: IV 100mL Isovue-300 was administered. Transaxial images were obtained from the dome of the diaphragm to the symphysis pubis. Multiplanar coronal and sagittal images were reformatted. Individualized Dose Optimization Techniques Were Used For This CT. COMPARISON: No relevant prior comparison study available FINDINGS: The visualized portions of the lung bases demonstrate patchy right lower lobe infiltrate and atelectatic changes. Trace of right pleural effusion. Normal heart size. Coronary calcifications. Hepatic steatosis. Somewhat heterogeneous inferior aspect of the liver could represent focal fatty sparing. 1 cm low-density in the inferior right lobe difficult to characterize and may represent cyst. Distended gallbladder with pericholecystic stranding/edema. No definite gallstones on this examination. No evidence of biliary dilatation. Normal spleen. Normal pancreas. Normal bilateral adrenal glands. Bilateral extrarenal pelvis. Left parapelvic cystic structures likely representing parapelvic cysts. No definite hydronephrosis. Normal visualized stomach. Nonspecific fluid-filled small bowel loops without evidence of bowel obstruction. Fecal retention. Diverticulosis without evidence of acute diverticulitis. The appendix is visualized and appears normal. There is diffuse atherosclerotic calcification of the abdominal aorta, without a demonstrated aneurysm. No retroperitoneal adenopathy. Normal urinary bladder. Enlarged prostate with calcifications. Correlation with PSA level is recommended. Normal abdominal wall. Degenerative changes of the spine. CT/Abdomen/Pelvis W IV Cont ONLY IMPRESSION: 1. Right lower lobe infiltrate and atelectatic changes. Small right pleural effusion. 2. Dilated gallbladder with pericholecystic edema without evidence of gallstones. Correlation with gallbladder ultrasound might be of value. 3. Diverticulosis without evidence of acute diverticulitis. 4. Hepatic steatosis with heterogeneous inferior right lower lobe difficult to characterize at this time. 5. Enlarged prostate. Correlation with PSA level is recommended. Electronically Signed: Reji Greene MD at 13:48 EST ,
[2023-05-29] MEDS: Azithromycin 500 MG in Dextrose 5%-Water (250mL Bag) 250 ML 250 MG IV (14:28)
[2023-05-29] MEDS: 0.9% Normal Saline (1000mL) 1,000 ML 100 ML IV (17:22)
--- NOTE | 2023-05-29 22:00 | ED.RN ---
CALLED PHYSICIANS TO SET UP TRANSFER RIDE FOR PT AT 2134. THEY GAVE AN ETA OF 0035. I REQUESTED OUTSOURCE. I THEN CALLED PHYSICIANS AT 2151 FOR AN UPDATE ON THE OUTSOURCE, THEY PUT ME ON HOLD TO CHECK WITH HELEN WHO I ORIGINALLY SPOKE TO WHEN I WAS SETTING UP RIDE. I WAS ON HOLD FOR 7 MINUTES UNTIL THEY LADY ( I BELIEVE STEFANI) SAID HELEN WAS ON THE PHONE TRYING TO OUTSOURCE IN THE MOMENT, SHE'D CALL BACK IN A LITTLE BIT. PHONE CALL ENDED AT 2199.
--- NOTE | 2023-05-29 22:20 | ED.RN ---
I CALLED PHYSICIANS AGAIN AT 2214 FOR A FOLLOW UP UPDATE, HELEN ANSWERED AND SAID THAT NO ONE HAS OUTSOURCED YET. I SAID TO HELEN THE LADY I SPOKE TO BEFORE, STEFANI SAID YOU WERE ON THE PHONE AND ATTEMPTING OUTSOURCE...?? SHE ANSWERED NO, THAT'S NOT MY JOB. AND STEFANI DIDN'T LEAVE ANY NOTES ABOUT ANY OUTSOURCE. I ASKED THEN THAT WE TRY OUTSOURCING AGAIN, BECAUSE IF IF WASN'T WROTE DOWN THEN ITS UP IN THE AIR TO HAVE EVEN HAPPENED. A DIFFERENT LADY NAMED RILEY CALLED ME AT 2224 SAYING THAT SHE TRIED MEAGHAN NILA AND PREETI COVINGTON WHO NEITHER HAVE AVAILABILITY, THEN ALSO THEY TRIED [facility] WHO SAID NO BECAUSE OF INSURANCE.
[2023-05-30 00:11] VITALS: BP 122/84; PULSE 76; RESP 16; TEMP 36.8; O2SAT 98
[2023-05-30 01:06] VITALS: RESP 18
== END 2023-05-30 01:22 | disposition short-term general hospital (02) ==
LOC: ED 10:07
PROVIDERS: Emergency Provider Emergency Medicine; PCP Internal Medicine; Visit Provider Emergency Medicine
DX: R10.11 Right upper quadrant pain (principal); K81.9 Cholecystitis, unspecified; I25.10 Atherosclerotic heart disease of native coronary artery without angina pectoris; I10 Essential (primary) hypertension; E78.5 Hyperlipidemia, unspecified; Z79.02 Long term (current) use of antithrombotics/antiplatelets; R91.8 Other nonspecific abnormal finding of lung field; R10.31 Right lower quadrant pain; R10.32 Left lower quadrant pain; I25.2 Old myocardial infarction; Z79.82 Long term (current) use of aspirin; Z79.899 Other long term (current) drug therapy; Z95.5 Presence of coronary angioplasty implant and graft
CPT/HCPCS: 74177; 76705; 80053; 81001; 85025; 87086; 87088; 96361; 96365; 96366; 96367; 99285; J7030; Q9967; A4216

== ENCOUNTER → 2023-08-01 | Outpatient (CLI) | payer MEDICARE, SELFPAY ==
[2023-08-01 07:38] LABS: AST(SGOT) 20 U/L (15-37); Alanine Aminotransfer ALT/SGPT 15 U/L (16-61); Albumin, Serum 3.2 g/dL (3.2-5.0); Alkaline Phosphatase 82 U/L (45-117); Bilirubin, Direct 0.28 mg/dL (0.00-0.30); Cholesterol 138 mg/dL (200); Globulin 3.8 g/dL (2.2-4.2); High Density Lipoprotein 41 mg/dL; Triglycerides 135 mg/dL; Very Low Density Lipoprotein 27 mg/dL (5-40)
== END | disposition home or self-care (01) ==
LOC: LAB 06:44
PROVIDERS: PCP Internal Medicine; Referring Provider Internal Medicine Cardiovascular Disease; Visit Provider Internal Medicine Cardiovascular Disease
DX: E78.00 Pure hypercholesterolemia, unspecified (principal)
CPT/HCPCS: 36415; 80061; 80076

== ENCOUNTER → 2023-08-03 | Outpatient (CLI) | payer MEDICARE, SELFPAY ==
[2023-08-03 13:17] LABS: Hemoglobin A1c 5.2 % (3.8-5.6)
== END | disposition home or self-care (01) ==
PROVIDERS: PCP Internal Medicine; Referring Provider Internal Medicine Cardiovascular Disease; Visit Provider Internal Medicine Cardiovascular Disease
DX: E11.9 Type 2 diabetes mellitus without complications (principal)
CPT/HCPCS: 36415; 83036

== ENCOUNTER → 2024-08-27 | Outpatient (CLI) | payer MEDICARE, SELFPAY ==
--- OUTSIDE RECORDS SUMMARY | 2024-08-27 06:59 | XMS RPT_ITS | CCD ---
Author Organization [facility] Care Team Providers Care Professor Of Nursing Name Role Phone Veronica PARADA, Jalyn A Unavailable Unavailable Lonnie Ballard Y Unavailable Unavailable MD Meyer Cyril S Unavailable Winsome Falk Unavailable Winsome Falk Unavailable Giovanni Persaud MD Primary Care Provider Giovanni Persaud MD Primary Care Provider Dr. Giovanni Persaud Primary Care Provider Dr. Giovanni Persaud Referring Provider Dr. Lupillo Meyer Attending Provider Dr. Lupillo Meyer Referring Provider Dr. Lupillo Meyer Other Provider Becca Crowley Attending Provider Unavailable Giovanni Persaud MD Primary Care Provider STEPHANE ROSALES Admitting UnavailSTEPHANE Nicolas Attending Unavaillindy e ROSSY ORONAO MANDO Referring Unavailable GIOVANNI PERSAUD Primary Care Unavailable JAUN LEBLANC Attending Unavailable GIOVANNI PERSAUD Primary Care Unavailable Dr. Giovanni Persaud Primary Care Provider Dr. Giovanni Persaud Referring Provider Dr. Lupillo Meyer Attending Provider Giovanni Persaud MD Primary Care Provider Lupillo Meyer Attending Unavailable Mitch, [place] Referring Unavailable Persaud, Giovanni Primary Care Unavailable Mitch, [place] Attending Unavailable Mitch, Lupillo Referring Unavailable Persaud, Giovanni Primary Care Unavailable Referred, Self Attending Unavailable Referred, Self Referring Unavailable Persaud, Giovanni Primary Care Unavailable Mitch, Lupillo Attending Unavailable Persaud, Giovanni Primary Care Unavailable Persaud, Giovanni Referring Unavailable Persaud, Giovanni Primary Care Unavailable [place], Best Attending Unavailable Kenia DIGITAL CAMPAIGN MANAGER.GEOPHYSICAL E LOGGER, Marlys M Unavailable [phone] PERSAUD, VASYL Referring Unavailable PERSAUD, VASYL Primary Care Unavailable PERSAUD, VASYL Attending Unavailable PERSAUD, VASYL Primary Care Unavailable PERSAUD, VASYL Attending Unavailable PERSAUD, VASYL Primary Care Unavailable PERSAUD, VASYL Referring Unavailable PERSAUD, VASYL Primary Care Unavailable PERSAUD, VASYL Primary Care Unavailable PERSAUD, VASYL Attending Unavailable PERSAUD, VASLY Primary Care Unavailable PERSAUD, VASYL Referring Unavailable PERSAUD, VASYL Primary Care Unavailable PERSAUD, VASYL Referring Unavailable PERSAUD, VASYL Primary Care Unavailable PERSAUD, VASYL Referring Unavailable Allergies Allergy Classification Reported Allergen(s) Allergy Type Date of Onset Reaction(s) Facility (20 sources) Cat; Translations: [CATS] allergy to substance 6 [facility] Work Phone: (20 sources) TREES; Translations: [TREES] food allergy 6 [facility] Work Phone: (7 sources) Tree and shrub pollen; Translations: [tree and shrub pollen] Allergy to substance 1 Shortness of breath [facility] (7 sources) cat dander; Translations: [cat dander] Allergy to substance 1 Anaphylaxis [facility] Medications Current Medications Medication Drug Class(es) Dates Sig (Normalized) Sig (Original) Antiarthritic Combination No.2 (Glucosamine-Chondro itin) 900 mg tablet (6 sources) Start: 12-31-2020 take 1 tablet by mouth once daily Antiarthritic Combination No.2 (Glucosamine-Chondr oitin) 900 mg tablet Active 900 MG PO DAILY December 31, 2020 11:16am Start: 12-31-2020 End: 08-03-2023 take 1 tablet by mouth once daily Antiarthritic Combination No.2 (Glucosamine-Chondroitin) 900 mg tablet Discontinued 900 MG PO DAILY December 31, 2020 12:00am August 03, 2023 11:37am Start: 12-31-2020 take 1 tablet by shari th once daily Antiarthritic Combination No.2 (Glucosamine-Chondroitin) 900 mg tablet Active 900 MG PO DAILY December 30, 2020 11:00pm Start: 12-31-2020 take 1 tablet by shari th once daily Antiarthritic Combination No.2 (Glucosamine-Chondroitin) 900 mg tablet Active 900 MG PO DAILY December 31, 2020 12:00am aspirin 81 mg oral tablet (20 sources) Platelet Aggregation Inhibitor, Nonsteroidal Anti-inflammatory Drug Start: 05-17-2012 take 1 tablet by mouth once daily at mealtime Aspirin 81 mg tab Indications: CAD (coronary artery disease) Take 1 tablet by mouth once daily. Take with food. 30 tablet 11 01/18/2013 Active Start: 05-17-2012 take 81 mg by mouth once daily Aspirin Active 81 MG PO DAILY May 18, 2016 1:00am Start: 05-17-2012 take 1 tablet by shari th once daily ASPIRIN 81 MG TABS One tablet by mouth daily ASPIRIN [id number] Lupillo Meyer MD Start: 05-08-2012 take 1 tablet by shari th once daily ECOTRIN 325 MG TBEC One tablet by mouth daily ASPIRIN [id number] Jalyn Martin RN Start: 05-08-2012 take 1 tablet by shari th once daily ECOTRIN 325 MG TBEC One tablet by mouth daily ASPIRIN [id number] Jalyn Martin RN Comment on above: Take 1 tablet by shari th once daily. Take with food. docusate sodium 50 mg / sennosides, half-way 8.6 mg oral tablet (10 sources) Start: 024 End: 025 take 1 tablet by mouth once daily as needed for constipation senna-docusate (SENNA-S) 8.6-50 mg per tablet Take 1 tablet by mouth once daily as needed for constipation. 28 tablet 06/01/2023 05/23/2024 Discontinued Comment on above: Take 1 tablet by [facility] once daily as needed for constipation. fluticasone propionate 0.05 mg/actuat metered dose nasal spray (20 sources) Corticosteroid Start: 022 Fluticasone Propionate Active 2 SPRAY INTRANASAL DAILY December 30, 2021 12:00am Start: 07-05-2021 End: 06-12-2024 take 2 spray(s) by mouth once daily fluticasone (FLONASE) 50 mcg/actuation nasal spray Use 2 Sprays in each nostril once daily. Rinse mouth after use. 1 Each 5 06/13/2024 Active Start: 10-03-2014 FLONASE 50 MCG /ACT SUSP Take as directed FLUTICASONE PROPIONATE [id number] Lupillo Meyer MD Start: 10-03-2014 End: 11-12-2015 FLONASE 50 MCG/ACT SUSP Take as directed FLUTICASONE PROPIONATE [id number] Lupillo Meyer MD Start: 10-03-2014 End: 11-12-2015 FLONASE 50 MCG/ACT SUSP Take as directed FLUTICASONE PROPIONATE [id number] Lupillo Meyer MD Start: 10-03-2014 End: 11-12-2015 FLONASE 50 MCG/ACT SUSP Take as directed FLUTICASONE PROPIONATE [id number] Lupillo Meyer MD Start: 10-03-2014 FLONASE 50 MCG /ACT SUSP Take as directed FLUTICASONE PROPIONATE [id number] Lupillo Meyer MD Comment on above: Use 2 Sprays in each nostril once daily. Rinse mouth after use. gabapentin 300 mg oral capsule (20 sources) Anti-epileptic Agent Start: 08-09-2024 End: 02-05-2025 take 1 capsule by mouth once daily gabapentin (NEURONTIN) 300 mg capsule Indications: Trigeminal neuralgia Take 1 capsule by mouth once daily for 180 days. Patient should start on August 09, 2024. 90 capsule 1 08/09/2024 02/05/2025 Active Start: 08-05-2021 End: 11-23-2023 take 1 capsule by mouth twice daily gabapentin (NEURONTIN) 300 mg capsule Indications: Trigeminal neuralgia Take 1 capsule by mouth twice daily. 180 capsule 3 11/23/2022 11/23/2023 Active Start: 11-16-2017 End: 07-27-2024 take 1 capsule by mouth once daily gabapentin (NEURONTIN) 300 mg capsule Indications: Trigeminal neuralgia Take 1 capsule by mouth once daily. Prescribed by Aaron Mckeon DO. 07/24/2024 07/27/2024 Discontinued Start: 05-08-2012 take 1 tablet by shari th once daily GABAPENTIN 300 MG CAPS One tablet by mouth daily GABAPENTIN [id number] Jalyn Martin RN Comment on above: Take 1 capsule by mo [facility] twice daily. Do not start before August 05, 2021. Take 1 capsule by mo ut twice daily. Take 1 capsule by mo uth once daily. metoprolol tartrate 50 mg oral tablet (20 sources) beta-Adrenergic Mona Start: 05-18-2016 End: 06-05-2017 take 50 mg by mouth once daily Metoprolol Tartrate Discontinued 50 MG PO DAILY May 18, 2016 1:00am June 05, 2017 1:12pm Start: 05-08-2012 End: 08-03-2023 take 1 tablet by mouth twice daily metoprolol tartrate, short acting, 50 mg tablet Indications: CAD (coronary artery disease) Take 1 tablet by mouth twice daily. 60 tablet 0 01/18/2013 Active Comment on above: Take 1 tablet by shari twice daily. Multivitamin preparation (6 sources) Start: 11-21-2019 take 1 tablet by mouth once daily Multivitamin Active 1 TABLET PO DAILY November 21, 2019 9:27am Start: 11-21-2019 take 1 tablet by shari th once daily Multivitamin Active 1 TABLET PO DAILY November 20, 2019 11:00pm Start: 11-21-2019 take 1 tablet by shari th once daily Multivitamin Active 1 TABLET PO DAILY November 21, 2019 12:00am multivitamin tablet (20 sources) Start: 01-22-2015 take 1 tablet by mouth once daily multivitamin tablet Take 1 tablet by mouth once daily. 0 01/22/2015 Active Comment on above: Take 1 tablet by shari th once daily. nitroglycerin 0.4 mg sublingual tablet (20 sources) Nitrate Vasodilator Start: 05-08-2012 End: 10-26-2021 nitroglycerin sublingual (NITROQUICK) 0.4 mg SL tablet Indications: CAD (coronary artery disease) Dissolve 1 tablet under the tongue every 5 minutes as needed for Chest Pain. 1 Bottle of 25 0 01/18/2013 Active Comment on above: Dissolve 1 tablet un cruz the tongue every 5 minutes as needed for Chest Pain. omeprazole 20 mg delayed release oral capsule (20 sources) Proton Pump Inhibitor Start: 03-28-2023 End: 08-28-2023 take 1 capsule by mouth before mealtime as needed omeprazole (PRILOSEC) 20 mg capsule Indications: Gastroesophageal reflux disease, unspecified whether esophagitis present Take 1 capsule by mouth as needed. 1/2 hr before meal. 90 capsule 3 08/28/2023 Active Start: 11-12-2020 End: 05-30-2022 take 1 capsule by mouth once daily before breakfast omeprazole (PRILOSEC) 20 mg capsule Indications: Gastroesophageal reflux disease, unspecified whether esophagitis present Take 1 capsule by mouth daily before breakfast. 1/2 hr before meal. 90 capsule 1 03/28/2023 Active Start: 04-21-2015 End: 08-03-2023 take 20 mg by mouth once daily Omeprazole Magnesium Di scontinued 20 MG PO DAILY May 18, 2016 1:00am August 03, 2023 11:38am Start: 04-21-2015 take 1 tablet by shari th once daily PRILOSEC OTC 20 MG TBEC One tablet by mouth daily OMEPRAZOLE MAGNESIUM [id number] Lupillo Meyer MD Start: 05-08-2012 End: 11-12-2015 take 1 tablet by mouth once daily OMEPRAZOLE 20 MG CPDR One tablet by mouth daily OMEPRAZOLE [id number] Lupillo Meyer MD Comment on above: Take 1 capsule by mo [facility] daily before breakfast. 1/2 hr before meal. pravastatin sodium 40 mg oral tablet (20 sources) HMG-CoA Reductase Inhibitor Start: 013 End: take 1 tablet by mouth once daily at bedtime pravastatin (PRAVACHOL) 40 mg tablet Take 1 tablet by mouth daily at bedtime. 90 tablet 3 01/10/2024 Active Comment on above: Take 1 tablet by [facility] daily at bedtime. sildenafil 20 mg oral tablet (20 sources) Phosphodiesterase 5 Inhibitor Start: 020 End: 023 take 2-3 tablets by mouth once daily as needed sildenafil (REVATIO) 20 mg tablet Indications: Impotence of organic origin Take 2-3 tablets by mouth once daily as needed (erectile dysfunction). 12 tablet 2 02/27/2023 Active Comment on above: Take 2-3 tablets by mouth once daily as needed (erectile dysfunction). tamsulosin hydrochloride 0.4 mg oral capsule (20 sources) alpha-Adrenergic Mona Start: 019 End: 024 take 1 capsule by mouth once daily at bedtime tamsulosin (FLOMAX) 0.4 mg Indications: BPH with obstruction/lower urinary tract symptoms Take 1 capsule by mouth daily at bedtime. 90 capsule 3 08/15/2023 Active Comment on above: Take 1 capsule by [facility] daily at bedtime. Completed/Discontinued Medications Medication Drug Class(es) Dates Sig (Normalized) Sig (Original) acetaminophen 325 mg oral tablet (4 sources) Start: 06-01-2023 End: 11-21-2023 take 2 tablets by mouth four times daily acetaminophen (TYLENOL) 325 mg tablet Take 2 tablets by mouth four times daily. 06/01/2023 11/21/2023 Discontinued Comment on above: Take 2 tablets by [facility] four times daily. ascorbic acid 500 mg oral tablet (10 sources) Vitamin C Start: 05-17-2012 End: 02-11-2014 take 1 tablet by mouth once daily VITAMIN C 500 MG TABS One tablet by mouth daily ASCORBIC ACID [id number] Lupillo Meyer MD calcium polycarbophil 625 mg oral tablet (10 sources) Start: 05-08-2012 End: 08-20-2013 take 1 tablet by mouth once daily FIBERCON 625 MG TABS One tablet by mouth daily CALCIUM POLYCARBOPHIL [id number] Jalyn Martin RN GLUCOSAMINE-CHONDROI TIN CAPS (5 sources) Start: 05-08-2012 take 1 tablet by mouth once daily GLUCOSAMINE-CHONDRO ITIN CAPS One tablet by mouth daily GLUCOSAMINE-CHONDRO ITIN CAPS [id number] Jalyn Martin RN clopidogrel 75 mg oral tablet (20 sources) P2Y12 Platelet Inhibitor Start: 03-07-2013 End: 05-29-2023 Clopidogrel Discontinued 0 .ROUTE .COMPLEX 90 February 21, 2022 7:00pm May 29, 2023 10:09pm TAKE 1 TABLET DAILY End: 11-23-2022 CLOPIDOGREL BISULFATE (PLAVI X ORAL) Take by mouth once daily. 0 11/23/2022 Discontinued CLOPIDOGREL BISU LFATE (PLAVIX ORAL) Take by mouth once daily. 0 Active Comment on above: Take by mouth once d aily. COENZYME Q10 TABS (4 sources) Start: 05-08-2012 End: 10-03-2014 take 1 tablet by mouth once daily CO-ENZYME Q-10 TABS One tablet by mouth daily COENZYME Q10 TABS [id number] Lupillo Meyer MD Start: 05-08-2012 take 1 tablet by shari th once daily CO-ENZYME Q-10 TABS One tablet by mouth daily COENZYME Q10 TABS [id number] Jalyn Martin RN COENZYME Q10 TABS (6 sources) Start: 05-08-2012 End: 10-03-2014 CO-ENZYME Q-10 TABS One tabl et by mouth daily COENZYME Q10 TABS [id number] Luplilo Meyer MD Start: 05-08-2012 CO-ENZYME Q-10 TABS One tablet by mouth daily COENZYME Q10 TABS [id number] Jalyn Martin RN fexofenadine hydrochloride 180 mg oral tablet (13 sources) Histamine-1 Receptor Antagonist Start: 05-08-2012 End: 05-29-2023 take 1 tablet by mouth once daily Fexofenadine (Allergy Relief (Fexofenadine)) 180 mg tablet Discontinued 180 MG PO DAILY November 16, 2017 12:00am May 29, 2023 10:09pm Comment on above: Take by mouth. Fish Oils (10 sources) Start: 05-08-2012 End: 02-11-2014 take 1 capsule by mouth once daily FISH OIL CAPS One capsule by mouth daily OMEGA-3 FATTY ACIDS CAPS [id number] Lupillo Meyer MD Start: 05-08-2012 take 1 capsule by mo [facility] once daily FISH OIL CAPS One capsule by mouth daily OMEGA-3 FATTY ACIDS CAPS [id number] Jalyn Martin RN folic acid 1 mg oral tablet (10 sources) Start: 05-08-2012 End: 02-11-2014 take 1 tablet by mouth once daily FOLIC ACID 1 MG TABS One tablet by mouth daily FOLIC ACID [id number] Lupillo Meyer MD garlic preparation 10 mg oral capsule (10 sources) Non-Standardized Food Allergenic Extract Start: 05-08-2012 End: 08-20-2013 take 1 tablet by mouth once daily GARLIC CAPS One tablet by mouth daily GARLIC CAPS [id number] Lupillo Meyer MD Start: 05-08-2012 take 1 tablet by [facility] once daily GARLIC CAPS One tablet by mouth daily GARLIC CAPS [id number] Jalyn Martin RN Start: 05-08-2012 End: 08-20-2013 take 1 tablet by mouth once daily GARLIC CAPS One tablet by mouth daily GARLIC CAPS [id number] Lupillo Meyer MD ginseng preparation 100 mg oral capsule (10 sources) Start: 05-08-2012 End: 08-20-2013 take 1 tablet by mouth once daily GINSENG 100 MG CAPS One tablet by mouth daily on Mon, and Mon GINSENG [id number] Jalyn Martin RN glucosamine sulfate 500 mg oral tablet (6 sources) Start: 11-21-2019 End: 08-03-2023 take 2 tablets by mouth once daily at mealtime Glucosamine Sulfate (Glucosamine) 500 mg tablet Discontinued 1000 MG PO DAILY November 21, 2019 12:00am August 03, 2023 11:38am administer with meals GLUCOSAMINE HCL/CHONDRO STOUT A (GLUCOSAMINE-CHONDROITIN ORAL) (18 sources) GLUCOSAMINE HCL/ CHONDRO STOUT A (GLUCOSAMINE-CHONDROITI N ORAL) Take by mouth once daily. 0 Active Comment on above: Take by mouth once d aily. hydroCHLOROthiazide 12.5 mg oral capsule (19 sources) Thiazide Diuretic Start: 05-18-2016 End: 05-29-2023 take 12.5 mg by mouth once daily Hydrochlorothiazide Discontinued 12.5 MG PO DAILY May 18, 2016 1:00am May 29, 2023 10:09pm Start: 03-07-2013 take 1 tablet by shari once daily HYDROCHLOROTHIAZIDE 12.5 MG TABS One tablet by mouth daily HYDROCHLOROTHIAZIDE [id number] Lupillo Meyer MD Comment on above: Take 1 capsule by [facility] once daily. hydroCHLOROthiazide 12.5 mg / lisinopril 10 mg oral tablet (10 sources) Thiazide Diuretic, Angiotensin Converting Enzyme Inhibitor Start: LISINOPRIL-HYDROCHL OROTHIAZIDE 10-12.5 MG TABS One half tablet by mouth daily LISINOPRIL-HYDROCHL OROTHIAZIDE [id number] Lupillo Meyer MD lisinopril 5 mg oral tablet (20 sources) Angiotensin Converting Enzyme Inhibitor Start: End: take 5 mg by mouth once daily Lisinopril Discontinued 5 MG PO DAILY May 18, 2016 1:00am August 03, 2023 11:38am Comment on above: Take 1 tablet by [facility] once daily. magnesium oxide 250 mg oral tablet (5 sources) Start: take 1 tablet by mouth once daily MAG-OXIDE TABS 250mg One tablet by mouth daily MAGNESIUM OXIDE TABS Lupillo Meyer MD Magnesium Oxide-Mg Amino Acid Chelate (MAGNESIUM) 300 mg cap (6 sources) Start: 013 Magnesium Oxide-Mg Amino Acid Chelate (MAGNESIUM) 300 mg cap Indications: CAD (coronary artery disease) Take 1 capsule by mouth. 0 01/18/2013 Active Comment on above: Take 1 capsule by [facility]. Magnesium Oxide-Mg Amino Acid Chelate 300 mg cap (7 sources) Start: 013 End: 023 Magnesium Oxide-Mg Amino Acid Chelate 300 mg cap Indications: CAD (coronary artery disease) Take 1 capsule by mouth. 0 01/18/2013 11/23/2022 Discontinued Start: 01-18-2013 Magnesium Oxid e-Mg Amino Acid Chelate 300 mg cap Indications: CAD (coronary artery disease) Take 1 capsule by mouth. 0 01/18/2013 Active Comment on above: Take 1 capsule by mo [facility]. melatonin 3 mg oral tablet (10 sources) Start: 3 End: 5 take 1 tablet by mouth at bedtime as needed MELATONIN 3 MG TABS One tablet by mouth at bedtime. As needed MELATONIN [id number] Jalyn Martin RN MULTIPLE VITAMIN (5 sources) Start: 4 take 1 tablet by mouth once daily MULTIVITAMINS TABS One tablet by mouth daily MULTIPLE VITAMIN Lupillo Meyer MD resveratrol 50 mg oral capsule (10 sources) Start: 3 End: 4 take 1 tablet by mouth once daily RESVERATROL CAPS One tablet by mouth daily RESVERATROL CAPS [id number] Jalyn Martin RN SELENIUM (4 sources) Start: 3 take 1 tablet by mouth every other day SELENIUM ER 200 MCG CR-TABS One tablet by mouth every other day SELENIUM [id number] Jalyn Martin RN Start: 05-08-2012 End: 02-11-2014 take 1 tablet by mouth every other day SELENIUM ER 200 MCG CR-TABS One tablet by mouth every other day SELENIUM [id number] Lupillo Meyer MD SELENIUM (6 sources) Start: 05-08-2012 take 1 tablet by [facility] every other day SELENIUM ER 200 MCG CR-TABS One tablet by mouth every other day SELENIUM [id number] Jalyn Martin RN Start: 05-08-2012 End: 02-11-2014 take 1 tablet by mouth every other day SELENIUM ER 200 MCG CR-TABS One tablet by mouth every other day SELENIUM [id number] Lupillo Meyer MD tadalafil 5 mg oral tablet (5 sources) Phosphodiesterase 5 Inhibitor Start: 05-08-2012 take 1 tablet by mouth once daily CIALIS 5 MG TABS One tablet by mouth daily TADALAFIL [id number] Lupillo Meyer MD thioctic acid 50 mg oral capsule (20 sources) Start: 11-21-2019 End: 05-29-2023 take 50 mg by mouth once daily Alpha Lipoic Acid Discontinued 50 MG PO DAILY November 21, 2019 12:00am May 29, 2023 10:07pm Start: 10-03-2014 take 3 capsules by [facility] once daily ALPHA-LIPOIC ACID 200 MG CAPS 600 mg by mouth daily ALPHA-LIPOIC ACID [id number] Lupillo Meyer MD Start: 07-23-2014 take 1 capsule by mo [facility] once daily Alpha Lipoic Acid 600 mg cap Take 600 mg by mouth once daily. 0 07/23/2014 Active Start: 07-23-2014 Alpha Lipoic A fransico 600 mg cap Take 400 mg by mouth once daily. 0 07/23/2014 Active Comment on above: Take 400 mg by mouth once daily. Take 600 mg by mouth once daily. ticagrelor 90 mg oral tablet (10 sources) Start: 05-08-19 13 End: 03-07-20 13 take 1 tablet by mouth twice daily BRILINTA 90 MG TABS One tablet by mouth twice daily TICAGRELOR [id number] Lupillo Meyer MD vardenafil 10 mg oral tablet (5 sources) Phosphodiesterase 5 Inhibitor Start: 05-08-19 13 LEVITRA 10 MG TABS Take as directed VARDENAFIL HCL [id number] Jalyn Martin RN vitamin b 12 0.5 mg oral tablet (15 sources) Vitamin B12 Start: 05-08-19 13 End: 02-12-20 14 take 1 tablet by mouth every other day VITAMIN B-12 500 MCG TABS One tablet by mouth every other day CYANOCOBALAMIN [id number] Lupillo Meyer MD take 1 tablet by mouth once cherie y cyanocobalamin (VITAMIN B-12) 1,000 mcg tab Take 1,000 mcg by mouth once daily. Active CHOLECALCIFEROL (10 sources) Start: 05-17-2012 End: 02-11-2014 take 1 tablet by mouth once daily VITAMIN D 1000 UNIT TABS One tablet by mouth daily CHOLECALCIFEROL [id number] Lupillo Meyer MD Start: 05-17-2012 take 1 tablet by shari th once daily VITAMIN D 1000 UNIT TABS One tablet by mouth daily CHOLECALCIFEROL [id number] Lupillo Meyer MD Start: 05-17-2012 End: 02-11-2014 take 1 tablet by mouth once daily VITAMIN D 1000 UNIT TABS One tablet by mouth daily CHOLECALCIFEROL [id number] Lupillo Meyer MD Start: 05-17-2012 End: 02-11-2014 take 1 tablet by mouth once daily VITAMIN D 1000 UNIT TABS One tablet by mouth daily CHOLECALCIFEROL [id number] Lupillo Meyer MD Start: 05-17-2012 take 1 tablet by shari th once daily VITAMIN D 1000 UNIT TABS One tablet by mouth daily CHOLECALCIFEROL [id number] Lupillo Meyer MD Problems Active Problems Problem Classification Problem Date Documented Da te Episodic/Chronic Chronic kidney disease (20 sources) Chronic kidney disease stage 3; Translations: [CKD (chronic kidney disease) stage 3, GFR 30-59 ml/min] Onset: 7 08-04-2016 Chronic Chronic kidney disease (1 source) Chronic kidney disease; Translations: [Stage 3a chronic kidney disease (HCC)] Onset: 4 Coronary atherosclerosis and other heart disease (20 sources) Coronary arteriosclerosis; Translations: [Atherosclerotic heart disease of [place] coronary artery without angina pectoris] Onset: 3 05-08-2012 Chronic Deficiency and other anemia (1 source) Anemia; Translations: [Anemia, unspecified] 11-21-2023 Episodic Deficiency and other anemia (1 source) Anemia, unspecified; Translations: [Anemia, unspecified type] Onset: 5 Episodic Diabetes mellitus without complication (1 source) Type 2 diabetes mellitus without complications; Translations: [Type 2 diabetes mellitus without complications] Onset: 4 Chronic Disorders of lipid metabolism (20 sources) Hyperlipidemia; Translations: [Hyperlipidemia, unspecified] Onset: 6 05-08-2012 Chronic E Codes: Adverse effects of medical drugs (3 sources) Adverse effect of anticoagulant antagonists, vitamin K and other coagulants, initial encounter; Translations: [Adverse effect of antiplatelet agent] 08-08-2022 Episodic Esophageal disorders (20 sources) Gastroesophageal reflux disease; Translations: [Gastro-esophageal reflux disease without esophagitis] Onset: 6 04-05-2005 Chronic Essential hypertension (20 sources) Hypertensive disorder; Translations: [Essential hypertension] Onset: 6 05-08-2012 Chronic Hyperplasia of prostate (20 sources) Benign prostatic hypertrophy with outflow obstruction; Translations: [Benign prostatic hyperplasia with lower urinary tract symptoms] Onset: 9 Chronic Immunizations and screening for infectious disease (1 source) Vaccination needed; Translations: [Encounter for immunization] 11-21-2023 Episodic Nonspecific chest pain (11 sources) Other chest pain; Translations: [Chest pain] Onset: 7 05-19-2016 Episodic Other aftercare (4 sources) Patient encounter status; Translations: [senior living (current) use of antithrombotics/antipl atelets] 05-29-2023 Episodic Other circulatory disease (5 sources) Disorder of carotid artery; Translations: [Occlusion and stenosis of unspecified carotid artery] Onset: 4 08-20-2013 Chronic Other gastrointestinal disorders (3 sources) Diarrhea; Translations: [Diarrhea, unspecified] 12-28-2023 Episodic Other lower respiratory disease (2 sources) Single lobe lung infiltrate; Translations: [Other nonspecific abnormal finding of lung field] 05-29-2023 Episodic Other male genital disorders (20 sources) Secondary erectile dysfunction; Translations: [Male erectile dysfunction, unspecified] Onset: 0 07-09-2009 Chronic Other nervous system disorders (20 sources) Trigeminal neuralgia; Translations: [Trigeminal neuralgia] Onset: 6 08-24-2005 Episodic Other nervous system disorders (4 sources) Trigeminal nerve disorder; Translations: [Disorder of trigeminal nerve, unspecified] 12-30-2021 Episodic Other upper respiratory disease (20 sources) Allergic rhinitis; Translations: [Allergic rhinitis, unspecified] Onset: 6 01-22-2015 Chronic Other upper respiratory disease (3 sources) Bleeding from nose; Translations: [Epistaxis] 08-08-2022 Episodic Residual codes; unclassified (1 source) Acquired absence of other specified parts of digestive tract; Translations: [S/P laparoscopic cholecystectomy] Onset: 4 Episodic Unclassified (2 sources) Placement of stent in coronary artery ; Translations: [Presence of coronary angioplasty implant and graft] Onset: 3 11-12-2015 Unclassified (6 sources) Long-term drug therapy; Translations: [Other [facility]current[facility] therapy] Onset: 3 04-14-2015 Past or Other Problems Problem Classification Problem Date Documented Date Episodic/Chronic Allergic reactions (20 sources) Radiation-induced dermatosis; Translations: [Other skin changes due to chronic exposure to nonionizing radiation] Onset: 7 Resolved: 4 10-10-2011 Episodic Biliary tract disease (17 sources) Acute cholecystitis without calculus; Translations: [Acute cholecystitis] Onset: 4 Resolved: 4 05-29-2023 Episodic Coagulation and hemorrhagic disorders (13 sources) Non-thrombocytopenic purpura; Translations: [Other nonthrombocytopenic purpura] Onset: 9 Resolved: 2 10-10-2011 Episodic Coronary atherosclerosis and other heart disease (2 sources) Presence of coronary angioplasty implant and graft; Translations: [Percutaneous transluminal coronary angioplasty status] Onset: 3 Episodic Genitourinary symptoms and ill-defined conditions (20 sources) Urinary tract obstruction; Translations: [Obstructive and reflux uropathy, unspecified] Onset: 3 Resolved: 4 08-01-2022 Episodic Joint disorders and dislocations; trauma-related (20 sources) Subluxation of foot joint; Translations: [Subluxation of tarsometatarsal joint of right foot, initial encounter] Onset: 8 Resolved: 4 05-31-2017 Episodic Melanomas of skin (13 sources) History of malignant melanoma of the skin; Translations: [Personal history of malignant melanoma of skin] Onset: 7 Resolved: 2 10-10-2011 Episodic Other aftercare (4 sources) 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; Translations: [Long-term (current) use of other medications] Onset: 3 04-14-2015 Episodic Other and unspecified benign neoplasm (13 sources) Benign neoplasm of skin of trunk; Translations: [Other benign neoplasm of skin of trunk] Onset: 8 Resolved: 2 02-22-2012 Episodic Other and unspecified benign neoplasm (13 sources) Senile angioma; Translations: [Hemangioma of skin and subcutaneous tissue] Onset: 2 Resolved: 4 01-22-2014 Episodic Other circulatory disease (5 sources) Carotid bruit; Translations: [Other specified symptoms and signs involving the circulatory and respiratory systems] Onset: 4 08-20-2013 Episodic Other circulatory disease (13 sources) Non-neoplastic nevus; Translations: [Nevus, non-neoplastic] Onset: 7 Resolved: 2 10-10-2011 Episodic Other diseases of kidney and ureters (20 sources) Hydronephrosis; Translations: [Unspecified hydronephrosis] Onset: 3 Resolved: 4 07-11-2022 Episodic Other gastrointestinal disorders (1 source) Diarrhea, unspecified; Translations: [Diarrhea, unspecified type] Onset: 4 Episodic Other inflammatory condition of skin (13 sources) Psoriasis; Translations: [Other psoriasis] Onset: 7 Resolved: 2 10-10-2011 Chronic Other lower respiratory disease (13 sources) Lung field abnormal; Translations: [Nonspecific abnormal findings on radiological and other examination of lung field] Onset: 7 Resolved: 7 06-29-2006 Episodic Other non-epithelial cancer of skin (13 sources) History of malignant neoplasm of skin; Translations: [Personal history of other malignant neoplasm of skin] Onset: 9 Resolved: 8 05-31-2017 Episodic Other nutritional; endocrine; and metabolic disorders (7 sources) Body mass index (BMI) 29.0-29.9, adult; Translations: [Body mass index (BMI) 27.0-27.9, adult] Onset: 3 11-15-2016 Episodic Other nutritional; endocrine; and metabolic disorders (3 sources) Body mass index (BMI) 28.0-28.9, adult; Translations: [Body mass index (BMI) 28.0-28.9, adult] Onset: 3 02-11-2014 Episodic Other nutritional; endocrine; and metabolic disorders (3 sources) Body mass index (BMI) 27.0-27.9, adult; Translations: [Body mass index (BMI) 27.0-27.9, adult] Onset: 3 03-07-2013 Episodic Other skin disorders (20 sources) Actinic keratosis; Translations: [Actinic keratosis] Onset: 7 05-31-2017 Episodic Other skin disorders (20 sources) Seborrheic keratosis; Translations: [Other seborrheic keratosis] Onset: 7 Resolved: 2 02-22-2012 Episodic Other skin disorders (13 sources) Scar conditions and fibrosis of skin; Translations: [Scar conditions and fibrosis of skin] Onset: 7 Resolved: 2 10-10-2011 Episodic Other skin disorders (13 sources) Disorder of skin pigmentation; Translations: [Disorder of pigmentation, unspecified] Onset: 7 Resolved: 2 10-10-2011 Episodic Other skin disorders (20 sources) Inflamed seborrheic keratosis; Translations: [Inflamed seborrheic keratosis] Onset: 7 Resolved: 4 10-10-2011 Episodic Other skin disorders (13 sources) Solar lentigo; Translations: [Other melanin hyperpigmentation] Onset: 2 Resolved: 8 05-31-2017 Episodic Unclassified (2 sources) Percutaneous transluminal coronary angioplasty ; Translations: [Coronary angioplasty status] Onset: 3 05-08-2012 Viral infection (13 sources) Verruca vulgaris; Translations: [Viral wart, unspecified] Onset: 7 Resolved: 2 10-10-2011 Episodic Results Test Name Value Interpretation Reference Range Facility [facility] 05-23-2024 CNOV Office Visit (INTMWS ) HENRIK MA ([id number]) 1940 M Date Time Provider Department 05/23/24 8:40 AM GIOVANNI PERSAUD INTMWS During your visit today, we recorded the following information about you: Temperature Pulse Respiration Blood pressure 97.7 degrees 64/minute 16/minute 120/64 Weight 84.3 kg Giovanni Persaud MD 05/23/2024 9:00 AM Signed This note was created using [employer]. Subjective Henrik Ma is a 83 year old male. He had no concerns. We reviewed his labs. He had chronic diarrhea since his gallbladder surgery, but this had resolved. Review of Systems Constitutional: Negative for fatigue and unexpected weight change. Respiratory: Negative for shortness of breath. Cardiovascular: Negative for chest pain and palpitations. Gastrointestinal: Negative for abdominal pain and diarrhea. Neurological: Negative for dizziness. ACTIVE PROBLEM LIST Esophageal Reflux Essential Hypertension, Benign Allergic Rhinitis Hyperlipidemia Trigeminal Neuralgia Actinic keratosis. Impotence of Organic Origin Other Seborrheic Keratosis Cad (Coronary Artery Disease) Ckd (Chronic Kidney Disease) Stage 3, Gfr 30-59 Ml/Min ([facility]) Bph With Obstruction/Lower Urinary Tract Symptoms Social History Tobacco Use Smoking status: Never Smokeless tobacco: Never Vaping Use Vaping status: Never Used Substance Use Topics Alcohol use: Yes Alcohol/week: 2.0 standard drinks of alcohol Types: 2 Cans of Beer (12oz) per week Drug use: No Current Outpatient Medications Medication Sig cyanocobalamin (VITAMIN B-12) 1,000 mcg tab Take 1,000 mcg by mouth once daily. pravastatin (PRAVACHOL) 40 mg tablet Take 1 tablet by mouth daily at bedtime. omeprazole (PRILOSEC) 20 mg capsule Take 1 capsule by mouth as needed. 1/2 hr before meal. tamsulosin (FLOMAX) 0.4 mg Take 1 capsule by mouth daily at bedtime. gabapentin (NEURONTIN) 300 mg capsule Take 1 capsule by mouth once daily. fluticasone (FLONASE) 50 mcg/actuation nasal spray Use 2 Sprays in each nostril once daily. Rinse mouth after use. sildenafil (REVATIO) 20 mg tablet Take 2-3 tablets by mouth once daily as needed (erectile dysfunction). multivitamin tablet Take 1 tablet by mouth [...] by mouth once daily. Take with food. senna-docusate (SENNA-S) 8.6-50 mg per tablet Take 1 tablet by mouth once daily as needed for constipation. (Patient not taking: Reported on 12/28/2023) No current facility-administered medications for this visit. Objective BP 120/64 (BP Site: Left Arm, BP Position: Sitting, BP Cuff Size: Large Adult) Pulse 64 Temp 36.5 ?C (97.7 ?F) (Temporal) Resp 16 Wt 84.3 kg (185 lb 13.6 oz) BMI 25.21 kg/m? Physical Exam Constitutional: Appearance: He is not ill-appearing. Cardiovascular: Rate and Rhythm: Normal rate and regular rhythm. Heart sounds: No murmur heard. No gallop. Pulmonary: Breath sounds: Normal breath sounds. Musculoskeletal: Right lower leg: No edema. Left lower leg: No edema. Neurological: Mental Status: He is alert. Latest Ref [facility] 05/16/2024 WBC 3.70 - 11.00 k/uL 6.76 RBC 4.20 - 6.00 m/uL 4.74 Hemoglobin 13.0 - 17.0 g/dL 15.3 Hematocrit 39.0 - 51.0 % 44.8 MCV 80.0 - 100.0 fL 94.5 MCH 26.0 - 34.0 pg 32.3 MCHC 30.5 - 36.0 g/dL 34.2 RDW-CV 11.5 - 15.0 % 12.2 Platelet Count 150 - 400 k/uL 165 MPV 9.0 - 12.7 fL 12.2 Absolute nRBC <0.01 k/uL <0.01 Glucose 74 - 99 mg/dL 94 BUN 9 - 24 mg/dL 32 (H) Creatinine 0.73 - 1.22 mg/dL 1.30 (H) Sodium 136 - 144 mmol/L 142 Potassium 3.7 - 5.1 mmol/L 4.4 Chloride 98 - 107 mmol/L 105 CO2 22 - 30 mmol/L 25 Anion Gap 8 - 15 mmol/L 12 Calcium 8.5 - 10.2 mg/dL 9.6 eGFR >=60 mL/min/1.73m? 54 (L) Legend: (H) High (L) Low Assessment and Plan 1. Essential hypertension, benign - ICD9: 401.1, ICD10: I10 (primary diagnosis) - Controlled - Continue current medications 2. 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, unspecified vessel or lesion type - ICD9: 414.01, ICD10: I25.10 - Stable and [facility] by [facility]. 3. Stage 3a chronic kidney disease (HCC) - ICD9: 585.3, ICD10: N18.31 - eGFR: 54 Stable - Counseled on avoiding NSAIDs, adequate hydration - BASIC METABOLIC PANEL 4. Diarrhea, unspecified type - ICD9: 787.91, ICD10: R19.7 - Resolved. Giovanni Persaud MD Allergies As of Date: 05/23/2024 Noted Allergy Reaction CATS 07/08/2005 TREES 07/08/2005 Date Reviewed: 05/23/2024 Reviewed by: Phyllis Cintron LPN - Fully Assessed Reason for Visit: F/U 6 (more content not included)... Normal [facility] Basic metabolic 2000 panelon 05-16-2024 Anion gap [Moles/Vol] 12 mmol/L Normal 8-15 [facility] Comment on above: Order Comment: Speci men Type: BLOOD SPECIMEN Ordering Facility: [facility] Address: [address] [place] [address] Performed By: #### 2 4321-2 #### [facility] CLIA [id number] [address] [place] [address] [place] Calcium [Mass/Vol] 9.6 mg/dL Normal 8.5-10.2 [facility] Comment on above: Order Comment: Speci men Type: BLOOD SPECIMEN Ordering Facility: [facility] Address: [address] [place] [address] Performed By: #### 2 4321-2 #### [facility] CLIA [id number] [address] [place] [address] [place] Chloride [Moles/Vol] 105 mmol/L Normal 98-107 [facility] Comment on above: Order Comment: Speci men Type: BLOOD SPECIMEN Ordering Facility: [facility] Address: [address] [place] [address] Performed By: #### 2 4321-2 #### [facility] CLIA [id number] [address] [place] [address] [place] CO2 [Moles/Vol] 25 mmol/L Normal 22-30 [facility] Comment on above: Order Comment: Speci men Type: BLOOD SPECIMEN Ordering Facility: [facility] Address: [address] [place] [address] Performed By: #### 2 4321-2 #### [facility] CLIA [id number] [address] [place] [address] [place] Creatinine [Mass/Vol] 1.30 mg/dL High 0.73-1.22 [facility] Comment on above: Order Comment: Speci men Type: BLOOD SPECIMEN Ordering Facility: [facility] Address: [address] [place] [address] Performed By: #### 2 4321-2 #### [facility] CLIA [id number] [address] [place] [address] [place] Creatinine and Glomerular filtration rate.predicted panel (S/P/Bld) 54 mL/min/1.73m??? Low >=60 [facility] Comment on above: Order Comment: Speci men Type: BLOOD SPECIMEN Ordering Facility: [facility] Address: [address] [place] [address] Result Comment: Christina mated Glomerular Filtration Rate (eGFR) is calculated using the 2020 CKD-EPI creatinine equation. This equation utilizes serum creatinine, sex, and age as parameters. The creatinine assay has traceable calibration to isotope dilution-mass spectrometry. Refer to KDIGO guidelines for clinical interpretation. In patients with unstable renal function, e.g. those with acute kidney injury, the eGFR may not accurately reflect actual GFR. Performed By: #### 2 4321-2 #### [facility] CLIA [id number] [address] [place] [address] [place] Glucose [Mass/Vol] 94 mg/dL Normal 74-99 [facility] Comment on above: Order Comment: Anai lui Type: BLOOD SPECIMEN Ordering Facility: [facility] Address: [address] [place] [address] Result Comment: The [place] [employer] (ADA) provides guidance for cutoff values for fasting glucose and random glucose. The ADA defines fasting as no caloric intake for at least 8 hours. Fasting plasma glucose results between 100 to 125 mg/dL indicate increased risk for diabetes (prediabetes). Fasting plasma glucose results greater than or equal to 126 mg/dL meet the criteria for diagnosis of diabetes. In the absence of unequivocal hyperglycemia, results should be confirmed by repeat testing. In a patient with classic symptoms of hyperglycemia or hyperglycemic crisis, random plasma glucose results greater than or equal to 200 mg/dL meet the criteria for diagnosis of diabetes. Reference: Standards of Medical Care in Diabetes 2016, [place] [employer]. Diabetes Care. 2016.39(Suppl 1). Performed By: #### 2 4321-2 #### [facility] CLIA [id number] [address] [place] [address] [place] Potassium [Moles/Vol] 4.4 mmol/L Normal 3.7-5.1 [facility] Comment on above: Order Comment: Anai lui Type: BLOOD SPECIMEN Ordering Facility: [facility] Address: [address] [place] [address] Performed By: #### 2 4321-2 #### [facility] CLIA [id number] [address] [place], [place] [id number] [place] Sodium [Moles/Vol] 142 mmol/L Normal 136-144 [facility] Comment on above: Order Comment: Speci men Type: BLOOD SPECIMEN Ordering Facility: [facility] Address: [address] [place] [address] Performed By: #### 2 4321-2 #### [facility] CLIA [id number] [address] [place] [address] [place] Urea nitrogen [Mass/Vol] 32 mg/dL High 9-24 [facility] Comment on above: Order Comment: Speci men Type: BLOOD SPECIMEN Ordering Facility: [facility] Address: [address] [place] [address] Performed By: #### 2 4321-2 #### [facility] CLIA [id number] [address] [place] [address] [place] CBC panel Auto (Bld)on 05-16 Erythrocyte distribution width (RBC) [Ratio] 12.2 % Normal 11.5-15.0 [facility] Comment on above: Order Comment: Speci men Type: BLOOD SPECIMEN Ordering Facility: [facility] Address: [address] [place] [address] Performed By: #### 2 4321-2 #### [facility] CLIA [id number] [address] [place] [address] [place] Hematocrit (Bld) [Volume fraction] 44.8 % Normal 39.0-51.0 [facility] Comment on above: Order Comment: Speci men Type: BLOOD SPECIMEN Ordering Facility: [facility] Address: [address] [place] [address] Performed By: #### 2 4321-2 #### [facility] CLIA [id number] [address] [place] [address] [place] Hemoglobin (Bld) [Mass/Vol] 15.3 g/dL Normal 13.0-17.0 [facility] Comment on above: Order Comment: Speci men Type: BLOOD SPECIMEN Ordering Facility: [facility] Address: [address] [place] [address] Performed By: #### 2 4321-2 #### [facility] CLIA [id number] [address] [place] [address] [place] MCH (RBC) [Entitic mass] 32.3 pg Normal 26.0-34.0 [facility] Comment on above: Order Comment: Speci men Type: BLOOD SPECIMEN Ordering Facility: [facility] Address: [address] [place] [address] Performed By: #### 2 4321-2 #### [facility] CLIA [id number] [address] [place] [address] [place] MCHC (RBC) [Mass/Vol] 34.2 g/dL Normal 30.5-36.0 [facility] Comment on above: Order Comment: Speci men Type: BLOOD SPECIMEN Ordering Facility: [facility] Address: [address] [place] [address] Performed By: #### 2 4321-2 #### [facility] CLIA [id number] [address] [place] [address] [place] MCV (RBC) [Entitic vol] 94.5 fL Normal 80.0-100.0 [facility] Comment on above: Order Comment: Speci men Type: BLOOD SPECIMEN Ordering Facility: [facility] Address: [address] [place] [address] Performed By: #### 2 4321-2 #### [facility] CLIA [id number] [address] [place] [address] [place] Nucleated RBC (Bld) [#/Vol] 10*3/uL Normal <0.01 [facility] Comment on above: Order Comment: Speci men Type: BLOOD SPECIMEN Ordering Facility: [facility] Address: [address] [place] [address] Performed By: #### 2 4321-2 #### [facility] CLIA [id number] [address] [place] [address] [place] Platelet mean volume (Bld) [Entitic vol] 12.2 fL Normal 9.0-12.7 [facility] Comment on above: Order Comment: Speci men Type: BLOOD SPECIMEN Ordering Facility: [facility] Address: [address] [place] [address] Performed By: #### 2 4321-2 #### [facility] CLIA [id number] [address] [place] [address] [place] Platelets (Bld) [#/Vol] 165 10*3/uL Normal 150-400 [facility] Comment on above: Order Comment: Speci men Type: BLOOD SPECIMEN Ordering Facility: [facility] Address: [address] [place] [address] Performed By: #### 2 4321-2 #### [facility] CLIA [id number] [address] [place] [address] [place] RBC (Bld) [#/Vol] 4.74 10*6/uL Normal 4.20-6.00 [facility] Comment on above: Order Comment: Speci men Type: BLOOD SPECIMEN Ordering Facility: [facility] Address: [address] [place] [address] Performed By: #### 2 4321-2 #### [facility] CLIA [id number] [address] [place] [address] [place] WBC (Bld) [#/Vol] 6.76 10*3/uL Normal 3.70-11.00 [facility] Comment on above: Order Comment: Speci men Type: BLOOD SPECIMEN Ordering Facility: [facility] Address: [address] [place] [address] Performed By: #### 2 4321-2 #### [facility] CLIA [id number] [address] [place] [address] [place] Basic metabolic 2000 panelon 01-23-2024 Anion gap [Moles/Vol] 10 mmol/L Normal 8-15 [facility] Comment on above: Order Comment: Speci men Type: BLOOD SPECIMEN Ordering Facility: [facility] Address: [address] [place] [address] Performed By: #### 2 4321-2 #### [facility] CLIA [id number] [address] [place] [address] [place] Calcium [Mass/Vol] 9.5 mg/dL Normal 8.5-10.2 [facility] Comment on above: Order Comment: Speci men Type: BLOOD SPECIMEN Ordering Facility: [facility] Address: [address] [place] [address] Performed By: #### 2 4321-2 #### [facility] CLIA [id number] [address] [place] [address] [place] Chloride [Moles/Vol] 106 mmol/L Normal 98-107 [facility] Comment on above: Order Comment: Speci men Type: BLOOD SPECIMEN Ordering Facility: [facility] Address: [address] [place] [address] Performed By: #### 2 4321-2 #### [facility] CLIA [id number] [address] [place] [address] [place] CO2 [Moles/Vol] 26 mmol/L Normal 22-30 [facility] Comment on above: Order Comment: Speci men Type: BLOOD SPECIMEN Ordering Facility: [facility] Address: [address] [place] [address] Performed By: #### 2 4321-2 #### [facility] CLIA [id number] [address] [place] [address] [place] Creatinine [Mass/Vol] 1.28 mg/dL High 0.73-1.22 [facility] Comment on above: Order Comment: Speci men Type: BLOOD SPECIMEN Ordering Facility: [facility] Address: [address] [place] [address] Performed By: #### 2 4321-2 #### [facility] CLIA [id number] [address] [place] [address] [place] Creatinine and Glomerular filtration rate.predicted panel (S/P/Bld) 55 mL/min/1.73m??? Low >=60 [facility] Comment on above: Order Comment: Anai lui Type: BLOOD SPECIMEN Ordering Facility: [facility] Address: [address] [place] [address] Result Comment: Christina mated Glomerular Filtration Rate (eGFR) is calculated using the 2020 CKD-EPI creatinine equation. This equation utilizes serum creatinine, sex, and age as parameters. The creatinine assay has traceable calibration to isotope dilution-mass spectrometry. Refer to KDIGO guidelines for clinical interpretation. In patients with unstable renal function, e.g. those with acute kidney injury, the eGFR may not accurately reflect actual GFR. Performed By: #### 2 4321-2 #### [facility] CLIA [id number] [address] [place] [address] [place] Glucose [Mass/Vol] 90 mg/dL Normal 74-99 [facility] Comment on above: Order Comment: Anai lui Type: BLOOD SPECIMEN Ordering Facility: [facility] Address: [address] [place] [address] Result Comment: The [place] Diabetes [employer] (ADA) provides guidance for cutoff values for fasting glucose and random glucose. The ADA defines fasting as no caloric intake for at least 8 hours. Fasting plasma glucose results between 100 to 125 mg/dL indicate increased risk for diabetes (prediabetes). Fasting plasma glucose results greater than or equal to 126 mg/dL meet the criteria for diagnosis of diabetes. In the absence of unequivocal hyperglycemia, results should be confirmed by repeat testing. In a patient with classic symptoms of hyperglycemia or hyperglycemic crisis, random plasma glucose results greater than or equal to 200 mg/dL meet the criteria for diagnosis of diabetes. Reference: Standards of Medical Care in Diabetes 2016, [place] [employer]. Diabetes Care. 2016.39(Suppl 1). Performed By: #### 2 4321-2 #### [facility] CLIA [id number] [address] [place] [address] [place] Potassium [Moles/Vol] 4.1 mmol/L Normal 3.7-5.1 [facility] Comment on above: Order Comment: Speci men Type: BLOOD SPECIMEN Ordering Facility: [facility] Address: [address] [place] [address] Performed By: #### 2 4321-2 #### [facility] CLIA [id number] [address] [place] [address] [place] Sodium [Moles/Vol] 142 mmol/L Normal 136-144 [facility] Comment on above: Order Comment: Speci men Type: BLOOD SPECIMEN Ordering Facility: [facility] Address: [address] [place] [address] Performed By: #### 2 4321-2 #### [facility] CLIA [id number] [address] [place] [address] [place] Urea nitrogen [Mass/Vol] 24 mg/dL Normal 9-24 [facility] Comment on above: Order Comment: Speci men Type: BLOOD SPECIMEN Ordering Facility: [facility] Address: [address] [place] [address] Performed By: #### 2 4321-2 #### [facility] CLIA [id number] [address] [place] [address] [place] FECAL LACTOFERRIN/LEUKOCYTES on 01-04-2024 Lactoferrin IA Ql (Stl) Negative for lactoferrin, which may indicate the absence of fecal white blood cells Normal Negative [facility] Comment on above: Order Comment: Speci men Type: STOOL SPECIMEN Ordering Facility: [facility] Address: [address] [place] [address] Performed By: #### F ECWBC #### [facility] CLIA [id number] [address] [place] [address] [place] CNPSheridan 01-01-2024 CNPN Telephone (INTMWS) HENRIK MA ([id number]) 1940 M Date Time Provider Department 01/01/24 GIOVANNI PERSAUD During your visit today, we recorded the following information about you: Phyllis Cintron LPN 01/01/2024 1:37 PM Signed Lab is needing a new order for Patient. Phyllis Cintron LPN Allergies As of Date: 01/01/2024 Noted Allergy Reaction CATS 07/08/2005 TREES 07/08/2005 Date Reviewed: 12/28/2023 Reviewed by: Phyllis Cintron LPN - Fully Assessed Reason for Visit: Orders [681] Primary Visit Diagnosis:Diarrhea, unspecified type [R19.7] Order(s):FECAL LACTOFERRIN/LEUKOCYTES [SQFECWBC] Order #: [id number] FUTURE Prescriptions as of 01/01/2024 - omeprazole (PRILOSEC) 20 mg capsule Take 1 capsule by mouth as needed. 1/2 hr before meal. - tamsulosin (FLOMAX) 0.4 mg Take 1 capsule by mouth daily at bedtime. - gabapentin (NEURONTIN) 300 mg capsule Take 1 capsule by mouth once daily. - senna-docusate (SENNA-S) 8.6-50 mg per tablet Take 1 tablet by mouth once daily as needed for constipation. - fluticasone (FLONASE) 50 mcg/actuation nasal spray Use 2 Sprays in each nostril once daily. Rinse mouth after use. - sildenafil (REVATIO) 20 mg tablet Take 2-3 tablets by mouth once daily as needed (erectile dysfunction). - pravastatin (PRAVACHOL) 40 mg tablet Take 1 tablet by mouth daily at bedtime. - multivitamin tablet Take 1 tablet by mouth once daily. - Alpha Lipoic Acid 600 mg cap Take 600 mg by mouth once daily. - nitroglycerin sublingual (NITROQUICK) 0.4 mg SL tablet Dissolve 1 tablet under the tongue every 5 minutes as needed for Chest Pain. - metoprolol tartrate, short acting, 50 mg tablet Take 1 tablet by mouth twice daily. - Aspirin 81 mg tab Take 1 tablet by mouth once daily. Take with food. Problem List As Of Date 01/01/2024 Noted Resolved Esophageal reflux [K21.9] 04/05/2005 Essential hypertension, benign [I10] 04/05/2005 Allergic rhinitis [J30.9] 04/05/2005 Hyperlipidemia [E78.5] 04/05/2005 TRIGEMINAL NEURALGIA [G50.0] 08/24/2005 ABNORMAL FINDINGS-LUNG FIELD [793.1] 04/27/2006 06/29/2006 Actinic keratosis. [L57.0] 07/04/2006 ACTINIC DAMAGE///CHR SOLAR SKIN DAMAGE NOS [L57*07/04/2006 10/10/2011 SURGICAL SCAR AND FIBROSIS OF SKIN [L90.5] 07/04/2006 10/10/2011 Personal history of malignant melanoma of skin *07/04/2006 10/10/2011 Other seborrheic keratosis [L82.1] 07/04/2006 10/10/2011 SOLAR LENTIGINES///DYSCHROMI A OTHER [L81.9] 07/04/2006 10/10/2011 Other psoriasis [L40.8] 07/04/2006 10/10/2011 Viral warts, unspecified [B07.9] 07/04/2006 10/10/2011 IRRITATED//INFLAMED SEBORRHEIC KERATOSIS [L82.*07/04/2006 10/10/2011 RENDON ANGIOMA///NEVUS, NON-NEOPLASTIC [I78.1] 07/04/2006 10/10/2011 Benign neoplasm of skin of trunk, except scrotu*07/31/2007 02/22/2012 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] 07/14/2008 10/10/2011 MELANOMA ON LEFT ARM//PERS HX SKIN MALIGNANCY *07/14/2008 05/31/2017 Impotence of Organic Origin [N52.9] 07/09/2009 Irritated//Inflamed Seborrheic Keratosis [L82.0]02/22/2012 01/22/2014 Actinic skin damage [L57.8] 02/22/2012 01/22/2014 Solar Lentigines [L81.4] 02/22/2012 05/31/2017 Other seborrheic keratosis [L82.1] 02/22/2012 Rendon angioma [D18.01] 02/22/2012 01/22/2014 CAD (coronary artery disease) [I25.10] 04/23/2012 CKD (chronic kidney disease) stage 3, GFR 30-59*08/04/2016 Subluxation of tarsometatarsal joint of right f*05/31/2017 05/25/2023 BPH with obstruction/lower urinary tract sympto*06/07/2018 Hydronephrosis of left kidney [N13.30] 07/11/2022 05/25/2023 Obstructive uropathy [N13.9] 08/01/2022 05/25/2023 Acute cholecystitis [K81.0] 05/29/2023 06/01/2023 Encounter Status:Closed by MARLYS MILLER on 01/01/24 Normal [facility] Basic metabolic 2000 panelon 12-28-2023 Anion gap [Moles/Vol] 9 mmol/L Normal 8-15 [facility] Comment on above: Order Comment: Speci men Type: BLOOD SPECIMEN Ordering Facility: [facility] Address: [address] [place] [address] Performed By: #### 2 4321-2 #### [facility] CLIA [id number] [address] [place] [address] [place] Calcium [Mass/Vol] 9.7 mg/dL Normal 8.5-10.2 [facility] Comment on above: Order Comment: Speci men Type: BLOOD SPECIMEN Ordering Facility: [facility] Address: [address] [place] [address] Performed By: #### 2 4321-2 #### [facility] CLIA [id number] [address] [place], [place] [address] [address] [place] Chloride [Moles/Vol] 104 mmol/L Normal 98-107 [facility] Comment on above: Order Comment: Speci men Type: BLOOD SPECIMEN Ordering Facility: [facility] Address: [address] [place] [address] Performed By: #### 2 4321-2 #### [facility] CLIA [id number] [address] [place] [address] [place] CO2 [Moles/Vol] 28 mmol/L Normal 22-30 [facility] Comment on above: Order Comment: Speci men Type: BLOOD SPECIMEN Ordering Facility: [facility] Address: [address] [place] [address] Performed By: #### 2 4321-2 #### [facility] CLIA [id number] [address] [place] [address] [place] Creatinine [Mass/Vol] 1.28 mg/dL High 0.73-1.22 [facility] Comment on above: Order Comment: Speci men Type: BLOOD SPECIMEN Ordering Facility: [facility] Address: [address] [place] [address] Performed By: #### 2 4321-2 #### [facility] CLIA [id number] [address] [place] [address] [place] Creatinine and Glomerular filtration rate.predicted panel (S/P/Bld) 55 mL/min/1.73m??? Low >=60 [facility] Comment on above: Order Comment: Speci men Type: BLOOD SPECIMEN Ordering Facility: [facility] Address: [address] [place] [address] Result Comment: Christina mated Glomerular Filtration Rate (eGFR) is calculated using the 2020 CKD-EPI creatinine equation. This equation utilizes serum creatinine, sex, and age as parameters. The creatinine assay has traceable calibration to isotope dilution-mass spectrometry. Refer to KDIGO guidelines for clinical interpretation. In patients with unstable renal function, e.g. those with acute kidney injury, the eGFR may not accurately reflect actual GFR. Performed By: #### 2 4321-2 #### [facility] CLIA [id number] [address] [place] [address] [place] Glucose [Mass/Vol] 106 mg/dL High 74-99 [facility] Comment on above: Order Comment: Anai lui Type: BLOOD SPECIMEN Ordering Facility: [facility] Address: [address] [place] [address] Result Comment: The [place] Diabetes [employer] (ADA) provides guidance for cutoff values for fasting glucose and random glucose. The ADA defines fasting as no caloric intake for at least 8 hours. Fasting plasma glucose results between 100 to 125 mg/dL indicate increased risk for diabetes (prediabetes). Fasting plasma glucose results greater than or equal to 126 mg/dL meet the criteria for diagnosis of diabetes. In the absence of unequivocal hyperglycemia, results should be confirmed by repeat testing. In a patient with classic symptoms of hyperglycemia or hyperglycemic crisis, random plasma glucose results greater than or equal to 200 mg/dL meet the criteria for diagnosis of diabetes. Reference: Standards of Medical Care in Diabetes 2016, [place] [employer]. Diabetes Care. 2016.39(Suppl 1). Performed By: #### 2 4321-2 #### [facility] CLIA [id number] [address] [place] [address] [place] Potassium [Moles/Vol] 4.8 mmol/L Normal 3.7-5.1 [facility] Comment on above: Order Comment: Anai lui Type: BLOOD SPECIMEN Ordering Facility: [facility] Address: [address] [place] [address] Performed By: #### 2 4321-2 #### [facility] CLIA [id number] [address] [place] [address] [place] Sodium [Moles/Vol] 141 mmol/L Normal 136-144 [facility] Comment on above: Order Comment: Anai lui Type: BLOOD SPECIMEN Ordering Facility: [facility] Address: [address] [place] [address] Performed By: #### 2 4321-2 #### [facility] CLIA [id number] [address] [place] [address] [place] Urea nitrogen [Mass/Vol] 33 mg/dL High 9-24 [facility] Comment on above: Order Comment: Speci men Type: BLOOD SPECIMEN Ordering Facility: [facility] Address: [address] [place] [address] Performed By: #### 2 4321-2 #### [facility] CLIA [id number] [address] [place] [address] [place] CBC panel Auto (Bld)on 12-27 Erythrocyte distribution width (RBC) [Ratio] 12.3 % Normal 11.5-15.0 [facility] Comment on above: Order Comment: Speci men Type: BLOOD SPECIMEN Ordering Facility: [facility] Address: [address] [place] [address] Performed By: #### 2 4321-2 #### [facility] CLIA [id number] [address] [place] [address] [place] Hematocrit (Bld) [Volume fraction] 46.0 % Normal 39.0-51.0 [facility] Comment on above: Order Comment: Speci men Type: BLOOD SPECIMEN Ordering Facility: [facility] Address: [address] [place] [address] Performed By: #### 2 4321-2 #### [facility] CLIA [id number] [address] [place] [address] [place] Hemoglobin (Bld) [Mass/Vol] 15.2 g/dL Normal 13.0-17.0 [facility] Comment on above: Order Comment: Speci men Type: BLOOD SPECIMEN Ordering Facility: [facility] Address: [address] [place] [address] Performed By: #### 2 4321-2 #### [facility] CLIA [id number] [address] [place] [address] [place] MCH (RBC) [Entitic mass] 31.6 pg Normal 26.0-34.0 [facility] Comment on above: Order Comment: Speci men Type: BLOOD SPECIMEN Ordering Facility: [facility] Address: [address] [place] [address] Performed By: #### 2 4321-2 #### [facility] CLIA [id number] [address] [place] [address] [place] MCHC (RBC) [Mass/Vol] 33.0 g/dL Normal 30.5-36.0 [facility] Comment on above: Order Comment: Speci men Type: BLOOD SPECIMEN Ordering Facility: [facility] Address: [address] [place] [address] Performed By: #### 2 4321-2 #### [facility] CLIA [id number] [address] [place] [address] [place] MCV (RBC) [Entitic vol] 95.6 fL Normal 80.0-100.0 [facility] Comment on above: Order Comment: Speci men Type: BLOOD SPECIMEN Ordering Facility: [facility] Address: [address] [place] [address] Performed By: #### 2 4321-2 #### [facility] CLIA [id number] [address] [place] [address] [place] Nucleated RBC (Bld) [#/Vol] 10*3/uL Normal <0.01 [facility] Comment on above: Order Comment: Speci men Type: BLOOD SPECIMEN Ordering Facility: [facility] Address: [address] [place] [address] Performed By: #### 2 4321-2 #### [facility] CLIA [id number] [address] [place] [address] [place] Platelet mean volume (Bld) [Entitic vol] 12.6 fL Normal 9.0-12.7 [facility] Comment on above: Order Comment: Speci men Type: BLOOD SPECIMEN Ordering Facility: [facility] Address: [address] [place] [address] Performed By: #### 2 4321-2 #### [facility] CLIA [id number] [address] [place] [address] [place] Platelets (Bld) [#/Vol] 178 10*3/uL Normal 150-400 [facility] Comment on above: Order Comment: Speci men Type: BLOOD SPECIMEN Ordering Facility: [facility] Address: [address] [place] [address] Performed By: #### 2 4321-2 #### [facility] CLIA [id number] [address] [place] [address] [place] RBC (Bld) [#/Vol] 4.81 10*6/uL Normal 4.20-6.00 [facility] Comment on above: Order Comment: Speci men Type: BLOOD SPECIMEN Ordering Facility: [facility] Address: [address] [place] [address] Performed By: #### 2 4321-2 #### [facility] CLIA [id number] [address] [place] [address] [place] WBC (Bld) [#/Vol] 6.42 10*3/uL Normal 3.70-11.00 [facility] Comment on above: Order Comment: Speci men Type: BLOOD SPECIMEN Ordering Facility: [facility] Address: [address] [place] [address] Performed By: #### 2 4321-2 #### [facility] IA [id number] [address] [place] [address] [place] CNOVon 12-28-2023 CNOV Office Visit (INTMWS ) HENRIK MA ([id number]) 1940 M Date Time Provider Department 12/28/23 2:20 PM GIOVANNI PERSAUD INTMWS During your visit today, we recorded the following information about you: Temperature Pulse Respiration Blood pressure 97 degrees 60/minute 16/minute 126/64 Weight 82.5 kg Giovanni Persaud MD 12/28/2023 2:30 PM Signed This note was created using [employer]. Subjective Henrik Ma is a 83 year old male. Since his GB surgery in May, he's noted a 2nd bowel movement after the 1st morning normal BM associated with gas, and loose. Other symptoms were bloating. He had been losing weight intentionally for more than one year, but was concerned about some other process. His last colonoscopy was normal in 2013. His diarrhea had actually been gradually decreasing. Review of Systems Constitutional: Positive for unexpected weight change. Negative for appetite change, diaphoresis, fatigue and fever. Gastrointestinal: Negative for abdominal distention, abdominal pain, blood in stool, constipation, nausea and vomiting. ACTIVE PROBLEM LIST Esophageal Reflux Essential Hypertension, Benign Allergic Rhinitis Hyperlipidemia Trigeminal Neuralgia Actinic keratosis. Impotence of Organic Origin Other Seborrheic Keratosis Cad (Coronary Artery Disease) Ckd (Chronic Kidney Disease) Stage 3, Gfr 30-59 Ml/Min ([facility]) Bph With Obstruction/Lower Urinary Tract Symptoms Social History Tobacco Use Smoking status: Never Smokeless tobacco: Never Vaping Use Vaping status: Never Used Substance Use Topics Alcohol use: Yes Alcohol/week: 2.0 standard drinks of alcohol Types: 2 Cans of Beer (12oz) per week Drug use: No Current Outpatient Medications Medication Sig omeprazole (PRILOSEC) 20 mg capsule Take 1 capsule by mouth as needed. 1/2 hr before meal. tamsulosin (FLOMAX) 0.4 mg Take 1 capsule by mouth daily at bedtime. gabapentin (NEURONTIN) 300 mg capsule Take 1 capsule by mouth once daily. fluticasone (FLONASE) 50 mcg/actuation nasal spray Use 2 Sprays in each nostril once daily. Rinse mouth after use. (Patient taking differently: Use 2 Sprays in each nostril once daily. Rinse mouth after use. - use in spring) sildenafil (REVATIO) 20 mg tablet Take 2-3 tablets by mouth once daily as needed (erectile dysfunction). pravastatin (PRAVACHOL) 40 mg tablet Take 1 tablet by mouth daily at bedtime. multivitamin tablet Take 1 tablet by mouth [...] by mouth once daily. Take with food. senna-docusate (SENNA-S) 8.6-50 mg per tablet Take 1 tablet by mouth once daily as needed for constipation. (Patient not taking: Reported on 12/28/2023) No current facility-administered medications for this visit. Objective BP 126/64 (BP Site: Left Arm, BP Position: Sitting, BP Cuff Size: Large Adult) Pulse 60 Temp 36.1 ?C (97 ?F) (Temporal) Resp 16 Wt 82.5 kg (181 lb 14.1 oz) BMI 24.67 kg/m? Physical Exam Constitutional: Appearance: Normal appearance. Abdominal: General: Abdomen is flat. Bowel sounds are normal. Palpations: Abdomen is soft. There is no mass. Tenderness: There is no abdominal tenderness. Neurological: Mental Status: He is alert. Assessment and Plan 1. Diarrhea, unspecified type - ICD9: 787.91, ICD10: R19.7 Chronic. Stools generally not liquid but loose. C difficile less likely. Increase dietary fiber. Clinically this is consistent with post cholecystectomy diarrhea. - COMPLETE BLOOD COUNT - BASIC METABOLIC PANEL - FECAL LACTOFERRIN/LEUKOCYTES Giovanni Persaud MD Allergies As of Date: 12/28/2023 Noted Allergy Reaction CATS 07/08/2005 TREES 07/08/2005 Date Reviewed: 12/28/2023 Reviewed by: Phyllis Cintron LPN - Fully Assessed Reason for Visit: Diarrhea [35] Primary Visit Diagnosis:Diarrhea, unspecified type [R19.7] Order(s):COMPLETE BLOOD COUNT [SQCBC] Order #: [id number] FUTURE BASIC METABOLIC PANEL [SQBMP] Order #: [id number] FUTURE FECAL LACTOFERRIN/LEUKOCYTES [SQFECWBC] Order #: [id number]. #:[id number] Prescriptions as of 01/01/2024 - omeprazole (PRILOSEC) 20 mg capsule Take 1 capsule by mouth as needed. 1/2 hr before meal. - tamsulosin (FLOMAX) 0.4 mg Take 1 capsule by mouth daily at bedtime. - gabapentin (NEURONTIN) 300 mg capsule Take 1 capsule by mouth once daily. - senna-docusate (SENNA-S) 8.6-50 mg per tablet Take 1 tablet by mouth once daily as needed for constipation. - fluticasone (FLONASE) 50 mcg/actuation nasal spray Use 2 Sprays in each nostril once daily. Rinse mouth (more content not included)... Normal [facility] CNOVon 11-21-2023 CNOV Office Visit (INTMWS ) HENRIK MA ([id number]) 1940 M Date Time Provider Department 11/21/23 9:00 AM GIOVANNI PERSAUD INTMWS During your visit today, we recorded the following information about you: Temperature Pulse Respiration Blood pressure 97.1 degrees 60/minute 12/minute 122/68 Weight Height 82.3 kg 1.829 m Giovanni Persaud MD 11/21/2023 9:39 AM Signed This note was created using [employer]. Subjective eHnrik Ma is a 83 year old male. He was doing well. In spring he was admitted for acalculous cholecystitis and pneumonia. His coronary artery disease, hypertension, and lipids were controlled. Trigeminal neuralgia was controlled with dysesthesias of the right nasal area several months ago. 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 Review of Systems Constitutional: Negative for appetite change, fatigue and unexpected weight change. Respiratory: Negative for cough, chest tightness and shortness of breath. Cardiovascular: Negative for chest pain, palpitations and leg swelling. Gastrointestinal: Negative for abdominal pain, constipation, diarrhea, nausea and vomiting. Genitourinary: Negative for difficulty urinating and dysuria. Neurological: Negative for dizziness and headaches. ACTIVE PROBLEM LIST Esophageal Reflux Essential Hypertension, Benign Allergic Rhinitis Hyperlipidemia Trigeminal Neuralgia Actinic keratosis. Impotence of Organic Origin Other Seborrheic Keratosis Cad (Coronary Artery Disease) Ckd (Chronic Kidney Disease) Stage 3, Gfr 30-59 Ml/Min ([facility]) Bph With Obstruction/Lower Urinary Tract Symptoms Social History Tobacco Use Smoking status: Never Smokeless tobacco: Never Vaping Use Vaping status: Never Used Substance Use Topics Alcohol use: Yes Alcohol/week: 2.0 standard drinks of alcohol Types: 2 Cans of Beer (12oz) per week Drug use: No Current Outpatient Medications Medication Sig omeprazole (PRILOSEC) 20 mg capsule Take 1 capsule by mouth as needed. 1/2 hr before meal. tamsulosin (FLOMAX) 0.4 mg Take 1 capsule by mouth daily at bedtime. gabapentin (NEURONTIN) 300 mg capsule Take 1 capsule by mouth once daily. senna-docusate (SENNA-S) 8.6-50 mg per tablet Take 1 tablet by mouth once daily as needed for constipation. sildenafil (REVATIO) 20 mg tablet Take 2-3 tablets by mouth once daily as needed (erectile dysfunction). pravastatin (PRAVACHOL) 40 mg tablet Take 1 tablet by mouth daily at bedtime. multivitamin tablet Take 1 tablet by mouth [...] by mouth once daily. Take with food. acetaminophen (TYLENOL) 325 mg tablet Take 2 tablets by mouth four times daily. (Patient not taking: Reported on 11/21/2023) fluticasone (FLONASE) 50 mcg/actuation nasal spray Use 2 Sprays in each nostril once daily. Rinse mouth after use. (Patient taking differently: Use 2 Sprays in each nostril once daily. Rinse mouth after use. - use in spring) No current facility-administered medications for this visit. Objective BP 122/68 (BP Site: Left Arm, BP Position: Sitting, BP Cuff Size: Large Adult) Pulse 60 Temp 36.2 ?C (97.1 ?F) (Temporal) Resp 12 Ht 182.9 cm (6') Wt 82.3 kg (181 lb 7 oz) BMI 24.61 kg/m? Physical Exam Constitutional: General: He is not in acute distress. Appearance: He is not ill-appearing. HENT: Head: Normocephalic. Eyes: General: No scleral icterus. Conjunctiva/sclera: Conjunctivae normal. Cardiovascular: Rate and Rhythm: Normal rate and regular rhythm. Heart sounds: No murmur heard. No gallop. Pulmonary: Effort: No respiratory distress. Breath sounds: No wheezing or rales. Abdominal: Palpations: Abdomen is soft. Tenderness: There is no abdominal tenderness. Musculoskeletal: Right lower leg: No edema. Left lower leg: No edema. Lymphadenopathy: Cervical: No cervical adenopathy. Neurological: General: No focal deficit present. Mental Status: He is alert. Gait: Gait normal. Latest Ref Rng 11/14/2023 Protein, Total 6.3 - 8.0 g/dL 6.8 Albumin 3.9 - 4.9 g/dL 4.0 Calcium 8.5 - 10.2 mg/dL 9.5 Bilirubin, Total 0.2 - 1.3 mg/dL 1.6 (H) Alkaline Phosphatase 38 - 113 U/L 81 AST 14 - 40 U/L 28 ALT 10 - 54 U/L 20 Glucose 74 - 99 mg/dL 93 BUN 9 - 24 mg/dL 25 (H) Creatinine 0.73 - 1.22 mg/dL 1.19 Sodium 136 - 144 mmol/L 142 Potassium 3.7 - 5.1 mmol/L 3.9 Chloride 98 - 107 mmol/L 105 CO2 22 - 30 mmol/L 26 Anion Gap 8 - 15 mmol/L 11 eGFR >=60 mL/min/1.73m? 60 Cholesterol, Total <200 mg/dL 128 Triglyceride <150 mg/dL 115 (more content not included)... Normal [facility] Comprehensive metabolic 2000 panelon 11-14-2023 Albumin [Mass/Vol] 4.0 g/dL Normal 3.9-4.9 [facility] Comment on above: Order Comment: Speci men Type: BLOOD SPECIMEN Ordering Facility: [facility] Address: [address] [id number] Performed By: #### 2 4323-8, 55437-5 #### [facility] CLIA [id number] [address] [place] [address] [place] ALP [Catalytic activity/Vol] 81 U/L Normal 38-113 [facility] Comment on above: Order Comment: Speci men Type: BLOOD SPECIMEN Ordering Facility: [facility] Address: [address] [place] [address] Performed By: #### 2 4323-8, 79952-4 #### [facility] CLIA [id number] [address] [place] [address] [place] ALT [Catalytic activity/Vol] 20 U/L Normal 10-54 [facility] Comment on above: Order Comment: Speci men Type: BLOOD SPECIMEN Ordering Facility[facility] Address: [address] [place] [address] Performed By: #### 2 4323-8, 50579-2 #### [facility] CLIA [id number] [address] [place] [address] [place] Anion gap [Moles/Vol] 11 mmol/L Normal 8-15 [facility] Comment on above: Order Comment: Speci men Type: BLOOD SPECIMEN Ordering Facility[facility] Address: [address] [place] [address] Performed By: #### 2 4323-8, 19284-0 #### [facility] CLIA [id number] [address] [place] [address] [place] AST [Catalytic activity/Vol] 28 U/L Normal 14-40 [facility] Comment on above: Order Comment: Speci men Type: BLOOD SPECIMEN Ordering Facility: [facility] Address: [address] [place] [address] Performed By: #### 2 4323-8, 72257-0 #### [facility] CLIA [id number] [address] [place] [address] [place] Bilirubin [Mass/Vol] 1.6 mg/dL High 0.2-1.3 [facility] Comment on above: Order Comment: Speci men Type: BLOOD SPECIMEN Ordering Facility: [facility] Address: [address] [place] [address] Performed By: #### 2 4323-8, 61755-5 #### [facility] CLIA [id number] [address] [place] [address] [place] Calcium [Mass/Vol] 9.5 mg/dL Normal 8.5-10.2 [facility] Comment on above: Order Comment: Speci men Type: BLOOD SPECIMEN Ordering Facility: [facility] Address: [address] [place] [address] Performed By: #### 2 4323-8, 02432-3 #### [facility] CLIA [id number] [address] [place] [address] [place] Chloride [Moles/Vol] 105 mmol/L Normal 98-107 [facility] Comment on above: Order Comment: Speci men Type: BLOOD SPECIMEN Ordering Facility: [facility] Address: [address] [place] [address] Performed By: #### 2 4323-8, 52073-5 #### [facility] CLIA [id number] [address] [place] [address] [place] CO2 [Moles/Vol] 26 mmol/L Normal 22-30 [facility] Comment on above: Order Comment: Speci men Type: BLOOD SPECIMEN Ordering Facility: [facility] Address: [address] [place] [address] Performed By: #### 2 4323-8, 89107-7 #### [facility] CLIA [id number] [address] [place], [place] [id number] [place] Creatinine [Mass/Vol] 1.19 mg/dL Normal 0.73-1.22 [facility] Comment on above: Order Comment: Anai lui Type: BLOOD SPECIMEN Ordering Facility: [facility] Address: [address] [place] [address] Performed By: #### 2 4323-8, 84080-7 #### [facility] CLIA [id number] [address] [place] [address] [place] Creatinine and Glomerular filtration rate.predicted panel (S/P/Bld) 60 mL/min/1.73m??? Normal >=60 [facility] Comment on above: Order Comment: Anai lui Type: BLOOD SPECIMEN Ordering Facility: [facility] Address: [address] [place] [address] Result Comment: Christina mated Glomerular Filtration Rate (eGFR) is calculated using the 2020 CKD-EPI creatinine equation. This equation utilizes serum creatinine, sex, and age as parameters. The creatinine assay has traceable calibration to isotope dilution-mass spectrometry. Refer to KDIGO guidelines for clinical interpretation. In patients with unstable renal function, e.g. those with acute kidney injury, the eGFR may not accurately reflect actual GFR. Performed By: #### 2 4323-8, 71036-9 #### [facility] CLIA [id number] [address] [place] [address] [place] Glucose [Mass/Vol] 93 mg/dL Normal 74-99 [facility] Comment on above: Order Comment: Anai lui Type: BLOOD SPECIMEN Ordering Facility: [facility] Address: [address] [place] [address] Result Comment: The [place] Diabetes Association (ADA) provides guidance for cutoff values for fasting glucose and random glucose. The ADA defines fasting as no caloric intake for at least 8 hours. Fasting plasma glucose results between 100 to 125 mg/dL indicate increased risk for diabetes (prediabetes). Fasting plasma glucose results greater than or equal to 126 mg/dL meet the criteria for diagnosis of diabetes. In the absence of unequivocal hyperglycemia, results should be confirmed by repeat testing. In a patient with classic symptoms of hyperglycemia or hyperglycemic crisis, random plasma glucose results greater than or equal to 200 mg/dL meet the criteria for diagnosis of diabetes. Reference: Standards of Medical Care in Diabetes 2016, [place] [employer]. Diabetes Care. 2016.39(Suppl 1). Performed By: #### 2 4323-8, 05084-5 #### [facility] CLIA [id number] [address] [place] [address] [place] Potassium [Moles/Vol] 3.9 mmol/L Normal 3.7-5.1 [facility] Comment on above: Order Comment: Speci men Type: BLOOD SPECIMEN Ordering Facility: [facility] Address: [address] [place] [address] Performed By: #### 2 4323-8, 23320-9 #### [facility] CLIA [id number] [address] [place] [address] [place] Protein [Mass/Vol] 6.8 g/dL Normal 6.3-8.0 [facility] Comment on above: Order Comment: Speci men Type: BLOOD SPECIMEN Ordering Facility: [facility] Address: [address] [place] [address] Performed By: #### 2 4323-8, 22380-5 #### [facility] CLIA [id number] [address] [place] [address] [place] Sodium [Moles/Vol] 142 mmol/L Normal 136-144 [facility] Comment on above: Order Comment: Speci men Type: BLOOD SPECIMEN Ordering Facility: [facility] Address: [address] [place] [address] Performed By: #### 2 4323-8, 86472-6 #### [facility] CLIA [id number] [address] [place] [address] [place] Urea nitrogen [Mass/Vol] 25 mg/dL High 9-24 [facility] Comment on above: Order Comment: Speci men Type: BLOOD SPECIMEN Ordering Facility: [facility] Address: [address] [place] [address] Performed By: #### 2 4323-8, 06043-7 #### [facility] CLIA [id number] [address] [place] [address] [place] Lipid 1996 panelon 4 Cholesterol [Mass/Vol] 128 mg/dL Normal <200 [facility] Comment on above: Order Comment: Speci men Type: BLOOD SPECIMEN Ordering Facility: [facility] Address: [address] [place] [address] Result Comment: <200 mg/dL, Desirable 200-239 mg/dL, Borderline high >239 mg/dL, High Performed By: #### 2 4323-8, 28631-9 #### [facility] CLIA [id number] [address] [place] [address] [place] Cholesterol in HDL [Mass/Vol] 41 mg/dL Normal >39 [facility] Comment on above: Order Comment: Speci men Type: BLOOD SPECIMEN Ordering Facility: [facility] Address: [address] [place] [address] Result Comment: 40-5 9 mg/dL, Acceptable >59 mg/dL, High: Negative risk factor for coronary heart disease <40 mg/dL, Low: Positive risk factor for coronary heart disease Performed By: #### 2 4323-8, 00947-3 #### [facility] CLIA [id number] [address] [place] [address] [place] Cholesterol in LDL [Mass/Vol] 64 mg/dL Normal <100 [facility] Comment on above: Order Comment: Speci men Type: BLOOD SPECIMEN Ordering Facility: [facility] Address: [address] [place] [address] Result Comment: <100 mg/dL, Optimal 100-129 mg/dL, Near optimal/above optimal 130-159 mg/dL, Borderline high 160-189 mg/dL, High >189 mg/dL, Very high Secondary prevention optimal LDL Cholesterol levels are recommended to be < 70 mg/dL Performed By: #### 2 4323-8, 96441-6 #### [facility] CLIA [id number] [address] [place] [address] [place] Cholesterol in LDL/Cholesterol in HDL [Mass ratio] 1.56 {ratio} Normal <2.54 [facility] Comment on above: Order Comment: Anai lui Type: BLOOD SPECIMEN Ordering Facility: [facility] Address: [address] [place] [address] Result Comment: Refe elsie: 1. National Cholesterol Education Program ATP III Guideline At-A-Glance Quick Desk Reference: National Heart, Lung, and Blood Monument. National Institutes of Health. 2001: NIH Publication No. 01-3305. 2. An International Atherosclerosis Society position paper: global recommendations for the management of dyslipidemia: executive summary, Atherosclerosis. 2014: 232(2):410-413. Performed By: #### 2 4323-8, 66229-1 #### [facility] CLIA [id number] [address] [place] [address] [place] Cholesterol in VLDL [Mass/Vol] 23 mg/dL Normal <30 [facility] Comment on above: Order Comment: Anai lui Type: BLOOD SPECIMEN Ordering Facility: [facility] Address: [address] [place] [address] Performed By: #### 2 4323-8, 84028-9 #### [facility] CLIA [id number] [address] [place] [address] [place] Cholesterol non HDL [Mass/Vol] 87 mg/dL Normal <130 [facility] Comment on above: Order Comment: Anai lui Type: BLOOD SPECIMEN Ordering Facility: [facility] Address: [address] [place] [address] Result Comment: <130 mg/dL, Optimal 130-159 mg/dL, Near optimal/above optimal 160-189 mg/dL, Borderline high 190-219 mg/dL, High >219 mg/dL, Very high Secondary prevention optimal non HDL Cholesterol levels are recommended to be <100 mg/dL Performed By: #### 2 4323-8, 12480-4 #### [facility] CLIA [id number] [address] [place], [place] [address] [place] Cholesterol.total/Sirena sterol in HDL [Mass ratio] 3.12 {ratio} Normal <5.10 [facility] Comment on above: Order Comment: Speci men Type: BLOOD SPECIMEN Ordering Facility: [facility] Address: [address] [place] [address] Performed By: #### 2 4323-8, 33350-7 #### [facility] CLIA [id number] [address] [place] [address] [place] FASTING TIME 12 hrs Normal [facility] Comment on above: Order Comment: Speci men Type: BLOOD SPECIMEN Ordering Facility: [facility] Address: [address] [place] [address] Performed By: #### 2 4323-8, 72658-7 #### [facility] CLIA [id number] [address] [place] [address] [place] Triglyceride [Mass/Vol] 115 mg/dL Normal <150 [facility] Comment on above: Order Comment: Speci men Type: BLOOD SPECIMEN Ordering Facility: [facility] Address: [address] [place] [address] Result Comment: <150 mg/dL, Normal 150-199 mg/dL, Borderline high 200-499 mg/dL, High >499 mg/dL, Very high Performed By: #### 2 4323-8, 48469-9 #### [facility] CLIA [id number] [address] [place] [address] [place] Cardiology Visit Reporton Cardiology Visit Report [facility] [address] [place] [address] OFFICE VISIT Date of Service: 08/03/23 MR#: [id number] Acct: [id number] Name: HENRIK MA Rep #: [id number] : 1940 Provider: Dr. Lupillo Meyer MD Age/Sex: 83/M Location: [facility] Status: Signed HPI HPI History of Present Illness Details: HENRIK MA, is a 83 M who presents to the office today for a follow-up visit. He is a gentleman with a history of coronary artery disease status post angioplasty and stenting of his diagonal vessel in 2012. He is done well since then denying any chest pain or shortness breath or paroxysmal nocturnal dyspnea or pedal edema has been compliant with all his medications. His last stress test was in 2016 during which no evidence of ischemia was noted. He continues to walk most times a week through his neighborhood. He recently had gallbladder surgery. He has had no neck arm or jaw discomfort suggest angina his physical exam today demonstrates clear lung heck regular rate and rhythm and no pedal edema. Intake Vital Signs 05/29/23 08:38 08/03/23 11:36 Height 6 ft 6 ft Weight: 186 lb BMI 25.2 BP 129/66 H Blood Pressure Location Lt brachial Position Sitting Respiration 16 Pulse 60 Pulse Source Monitor Intake Visit Reasons: 1 Y FU [employer] Required: No Accompanied by: Self Is patient in pain?: No Allergies cat dander Allergy (Verified 08/03/23 11:36) Anaphylaxis tree and shrub pollen Allergy (Verified 08/03/23 11:36) Shortness of breath Medications aspirin 81 mg tablet,delayed release 81 mg PO DAILY 05/18/16 [History Confirmed 08/03/23] gabapentin 300 mg capsule 300 mg PO DAILY 11/16/17 [History Confirmed 08/03/23] tamsulosin 0.4 mg capsule 0.4 mg PO DAILY #90 caps 11/20/18 [History Confirmed 08/03/23] multivitamin 1 tab PO DAILY 11/21/19 [History Confirmed 08/03/23] sildenafil (pulm.hypertension) 20 mg tablet 20 mg PO DAILY PRN sexual activity 11/21/19 [History Confirmed 08/03/23] nitroglycerin 0.4 mg sublingual tablet 0.4 mg sublingual Q5-15M #25 tabs 10/26/21 [Rx Confirmed 08/03/23] fluticasone propionate 50 mcg/actuation nasal spray,suspension 2 spray intranasal DAILY PRN allergy symptoms 12/30/21 [History Confirmed 08/03/23] omeprazole 20 mg capsule,delayed release 20 mg PO DAILY 12/30/21 [History Confirmed 08/03/23] pravastatin 40 mg tablet 40 mg PO DAILY #90 tabs 02/13/23 [Rx Confirmed 08/03/23] metoprolol tartrate 50 mg tablet 50 mg PO BID #180 tabs 08/03/23 [Rx Confirmed 08/03/23] [facility] Medical History Atherosclerosis of coronary artery of [place] heart without angina pectoris Essential (primary) hypertension History of non-ST elevation myocardial infarction (NSTEMI) (04/24/12) HLD (hyperlipidemia) Surgical History History of coronary artery stent placement (04/24/12) Hx laparoscopic cholecystectomy Family History Sister Diabetes Social History household members: spouse Smoking Status: Never smoker ROS Const Const: Negative for fatigue, weakness, headache(s), daytime sleepiness or difficulty sleeping ENT ENT: Negative for headache(s), dizziness or Nosebleed/epistaxis Cardio Chest Pain: No Palpitations: No Edema: None Resp Respiratory: Negative for SOB with activity, SOB at rest, SOB orthopnea SOB lying down or Cough GI GI: Negative nausea, vomiting or heartburn Neuro Neuro: Negative for dizziness, lightheadedness, near syncope, headache(s) or weakness Endo Endo: Negative for fatigue Cardiology Exam Const Appearance: cooperative, healthy appearing, no acute distress, well developed and well groomed Nutritional Appearance: average body habitus and well nourished Orientation: alert, awake and oriented x3 Head Head: normal to inspection, normocephalic and atraumatic Ears: hearing grossly normal bilaterally and external ears normal Nose: external nose normal, nares normal, nasal mucous membranes and turbinates normal, septum normal and no nasal discharge Face and Sinus: face symmetric Mouth: oral mucosae normal, tongue normal, oropharynx normal and moist mucous membranes Teeth and gingiva: dentition normal Throat: posterior oropharynx normal, tonsils normal and uvula midline Eyes General: appearance normal, both eyes and all related structures Eyelids: eyelids normal Conjunctivae: conjunctivae normal Pupils: PERRL, normal by confrontation and accommodation normal EOM: EOM intact bilaterally Neck Neck: normal visual inspection, trachea midline and no JVD JVD: +5 Carotids: normal carotid upstroke and bounding pulses Chest Chest inspe (more content not included)... Normal [facility] Hemoglobin A1con 08-03-2023 HbA1c (Bld) [Mass fraction] 5.2 % Normal 3.8-5.6 [facility] Comment on above: Result Comment: Norm al < 5.7 % Prediabetic 5.7 - 6.4 % Diabetic >or= 6.5 % Please note range changes. Performed By: #### L 100.0100, L500.4050 #### [facility] [address] [place], [address] Whole blood hemoglobin A1c/t otal hemoglobin ratio (mass fraction)Ordered By: [place] Mitch on 08-03-2023 HbA1c (Bld) [Mass fraction] 5.2 % 3.8-5.6 [facility] Comment on above: Normal < 5.7 % Predi abetic 5.7 - 6.4 % Diabetic >or= 6.5 % Please note range changes. Basophil percentageOrdered B y: Lupillo Mitch on 08-01-2023 Bilirubin [Mass/Vol] 1.30 mg/dL 0.20-1.00 [facility] Comment on above: For patients on eltr ombopag therapy, use of Dimension Seibert TBIL is not recommended. Cholesterol [Mass/Vol] 138 mg/dL <200 [facility] Comment on above: <200 mg/dL Desirable 200-240 mg/dL Borderline >240 mg/dL High Risk Protein [Mass/Vol] 7.0 g/dL 6.4-8.2 [facility] Triglyceride [Mass/Vol] 135 mg/dL <199 [facility] Comment on above: The drugs N-Acetylcy steine and Metamizole may falsely depress this assay.Serum Triglycerides Reference Interval Normal <150 mg/dL Borderline high 150 - 199 mg/dL High 200 - 499 mg/dL Very High > or = 500 mg/dL Direct bilirubinOrdered By: Lupillo Mitch on 08-01-2023 Bilirubin.direct [Mass/Vol] 0.28 mg/dL 0.00-0.30 [facility] - Chemistry and C hemistry - challengeOrdered By: Lupillo Meyer on 08-01-2023 ALP [Catalytic activity/Vol] 82 U/L 45-117 [facility] ALT [Catalytic activity/Vol] 15 U/L 16-61 [facility] Cholesterol in HDL [Mass/Vol] 41 mg/dL >40 [facility] Comment on above: The drugs N-Acetylcy steine and Metamizole may falsely depress this assay. Reference Range HDL <40 mg/dL Low HDL Cholesterol HDL >or= 60 mg/dL High HDL Cholesterol Cholesterol in LDL [Mass/Vol] 70 mg/dL 0-130 [facility] Globulin (S) [Mass/Vol] 3.8 g/dL 2.2-4.2 [facility] Lipid Profileon 08-01-2023 Cholesterol [Mass/Vol] 138 mg/dL Normal 200 [facility] Comment on above: Result Comment: <200 mg/dL Desirable 200-240 mg/dL Borderline >240 mg/dL High Risk Performed By: #### L 500.4100, L500.3400 #### [facility] [address] [place], [address] Cholesterol in HDL [Mass/Vol] 41 mg/dL Normal [facility] Comment on above: Result Comment: The drugs N-Acetylcysteine and Metamizole may falsely depress this assay. Reference Range HDL <40 mg/dL Low HDL Cholesterol HDL >or= 60 mg/dL High HDL Cholesterol Performed By: #### L 500.4100, L500.3400 #### [facility] [address] [place], [address] Cholesterol in LDL [Mass/Vol] 70 mg/dL Normal 0-130 [facility] Comment on above: Performed By: #### L 500.4100, L500.3400 #### [facility] [address] [place], [address] Cholesterol in VLDL [Mass/Vol] 27 mg/dL Normal 5-40 [facility] Comment on above: Performed By: #### L 500.4100, L500.3400 #### [facility] [address] [place], [address] Triglyceride [Mass/Vol] 135 mg/dL Normal [facility] Comment on above: Result Comment: The drugs N-Acetylcysteine and Metamizole may falsely depress this assay. Serum Triglycerides Reference Interval Normal <150 mg/dL Borderline high 150 - 199 mg/dL High 200 - 499 mg/dL Very High > or = 500 mg/dL Performed By: #### L 500.4100, L500.3400 #### [facility] [address] [place], [address] Liver Profileon 08-01-2023 Albumin [Mass/Vol] 3.2 g/dL Normal 3.2-5.0 [facility] Comment on above: Performed By: #### L 500.4100, L500.3400 #### [facility] [address] [place], [address] ALK P 82 U/L Normal 45-117 [facility] Comment on above: Performed By: #### L 500.4100, L500.3400 #### [facility] [address] [place], [address] ALT [Catalytic activity/Vol] 15 U/L Low 16-61 [facility] Comment on above: Performed By: #### L 500.4100, L500.3400 #### [facility] [address] [place], [address] AST [Catalytic activity/Vol] 20 U/L Normal 15-37 [facility] Comment on above: Performed By: #### L 500.4100, L500.3400 #### [facility] [address] [place], [address] Bilirubin [Mass/Vol] 1.30 mg/dL High 0.20-1.00 [facility] Comment on above: Result Comment: For patients on eltrombopag therapy, use of Dimension Seibert TBIL is not recommended. Performed By: #### L 500.4100, L500.3400 #### [facility] [address] [place], [place], [address] Bilirubin.direct [Mass/Vol] 0.28 mg/dL Normal 0.00-0.30 [facility] Comment on above: Performed By: #### L 500.4100, L500.3400 #### [facility] [address] [place], [address] Globulin (S) [Mass/Vol] 3.8 g/dL Normal 2.2-4.2 [facility] Comment on above: Performed By: #### L 500.4100, L500.3400 #### [facility] [address] [place], [place], [address] T PROT 7.0 g/dL Normal 6.4-8.2 [facility] Comment on above: Performed By: #### L 500.4100, L500.3400 #### [facility] [address] [place], [place], [address] No Panel InformationOrdered By: uLpillo Meyer on 08-01-2023 VLDL Cholesterol 27 mg/dL 5-40 [facility] Thin prep Papanicolaou smear with manual screeningOrdered By: Lupillo Meyer on 08-01-2023 Thin prep Papanicolaou smear with manual screening 3.2 g/dL 3.2-5.0 [facility] Thin prep Papanicolaou smear with manual screening 20 U/L 15-37 [facility] CNOVon 06-19-2023 CNOV Office Visit ([id number]) DANICAHENRIK Romero ([id number]) 1940 M Date Time Provider Department 06/19/23 11:30 AM JAUN LEBLANC [id number] During your visit today, we recorded the following information about you: Pulse Blood pressure Weight 67/minute 134/62 84.2 kg Jaun Leblanc MD 06/19/2023 11:15 AM Signed [facility] PHYSICIAN: Giovanni Persaud MD Subjective CHIEF COMPLAINT: s/p laparoscopic cholecystectomy HISTORY OF PRESENT ILLNESS: This is a 83 year old malepresenting for follow-up after a laparoscopic cholecystectomy 05/30/23. The patient reports good pain control, is tolerating diet, denies nausea or vomiting, has good bowel function. All questions were satisfactorily answered. PAST MEDICAL HISTORY Diagnosis Date ABNORMAL FINDINGS-LUNG FIELD 04/27/2006 Granulomas Allergic rhinitis, cause unspecified 04/05/2005 Seasonal, Spring CAD (coronary artery disease) 04/23/2012 Non STEMI, [employer] 2nd diagonal. CKD (chronic kidney disease) stage 3, GFR 30-59 ml/min ([facility]) 08/04/2016 Esophageal reflux 04/05/2005 Essential hypertension, benign 04/05/2005 Hemangioma of skin and subcutaneous tissue Hydronephrosis 06/30/2022 Mild left Hydronephrosis of left kidney 07/11/2022 Malignant melanoma of skin of upper limb, including shoulder (HCC) 1987 left upper arm Obstructive uropathy Other and unspecified hyperlipidemia 04/05/2005 Subluxation of tarsometatarsal joint of right foot 05/31/2017 Dr. Hi, DPM Trigeminal neuralgia Ulcerative (chronic) proctitis (HCC) 08/2003 Unspecified cardiovascular disease mild CAD PAST [...] lesion TONSILLECTOMY PRIMARY/SECONDARY Tonsillectomy TRANSCATH STENT INIT VESSEL,ROUT 04/24/2012 Transcath stent init vessel maylin FAMILY HISTORY Problem Relation Age of Onset Cancer Mother ovarian cancer, age 101 None Father age 79 Arthritis Sister Essential Tremor Sister No Known Problems Sister Social History Tobacco Use Smoking status: Never Smokeless tobacco: Never Vaping Use Vaping Use: Never used Substance Use Topics Alcohol use: Yes Alcohol/week: 2.0 standard drinks of alcohol Types: 2 Cans of Beer (12oz) per week Drug use: No (Not in a hospital admission) No current facility-administered medications for this visit. ALLERGIES Allergen Reactions Cats Trees COMPLETE REVIEW OF SYSTEMS: As per HPI Objective PHYSICAL EXAM: BP 134/62 Pulse 67 Wt 185 lb 9.6 oz (84.2kg) SpO2 99% Physical Exam Performed GENERAL: Alert, no distress, cooperative HEENT: EOMI, normocephalic SKIN: Skin color, texture, turgor normal. LUNGS: Lungs clear to auscultation, Good diaphragmatic excursion CARDIAC: Rhythm: regular rate and rhythm, Rate: normal ABDOMEN: Soft, nontender and incisions clean, dry, intact. No erythema, no drainage. EXTREMITIES: Extremities normal, no deformities, edema, clubbing or skin discoloration. Good capillary refill. NEURO: Grossly normal cognition, motor function, and cranial nerves III-XII, Gait normal. Reflexes normal and symmetric. Sensation grossly intact PULSES: 2+ radial, 2+ carotid DATA: Diagnostic tests reviewed for today's visit: Pathology: A. Gallbladder, laparoscopic cholecystectomy: - Acute suppurative, calculus cholecystitis with ulceration and foci of hemorrhage and necrosis. 83 year old male s/p laparoscopic cholecystectomy 05/30/23 -Patient is doing well postoperatively. Steris removed in office -They can follow-up as needed or call office with questions or concerns -Diet as tolerated. Limited activity for 3-4 weeks Please Note: This office note has been created using Spacebar, a speech recognition software program, and may contain errors including punctuation, grammar, spelling, gender, and inappropriate words or phrases that pertain to the system. SIGNATURE: Jaun Leblanc MD PATIENT NAME: Henrik Ma DATE: June 18, 2023 TIME: 11:45 AM PAGER/CONTACT #: Allergies As of Date: 06/19/2023 Noted Allergy Reaction CATS 07/08/2005 TREES 07/08/2005 Date Reviewed: 06/19/2023 Reviewed by: Jaun Leblanc MD - Fully Assessed Reason for Visit: Post Op [174] Cmt: Lap sirena 0/10 Primary Visit Diagnosis:S/P laparoscopic cholecystectomy [Z90.49] Prescriptions as of 06/19/2023 - gabapentin (NEURONTIN) 300 mg capsule Take 1 capsule by mouth once daily. - acetaminophen (TYLENOL) 325 mg tablet Take 2 tablets by shari (more content not included)... Normal [facility] AST SerPl-cCncon 06-01-2023 AST [Catalytic activity/Vol] 64 U/L High 8-34 [facility] Comment on above: Order Comment: Speci men Type: BLOOD SPECIMEN Ordering Facility: [facility] Address: [address] [place] [address] Result Comment: Resu lts may be falsely depressed after the administration of Sulfasalazine and/or Sulfapyridine. Performed By: #### 3 4528-0, 94880-6 #### [facility] CLIA [id number] [address] [place] [address] [place] CBC W Auto Differential pane l (Bld)on 06-01-2023 Basophils (Bld) [#/Vol] 0.03 10*3/uL Normal <0.11 [facility] Comment on above: Order Comment: Speci men Type: BLOOD SPECIMEN Ordering Facility: [facility] Address: [address] [place] [address] Performed By: #### 5 8410-2 #### [facility] CLIA [id number] [address] [place] [address] [place] Basophils/100 WBC (Bld) 0.2 % Normal [facility] Comment on above: Order Comment: Speci men Type: BLOOD SPECIMEN Ordering Facility: [facility] Address: [address] [place] [address] Performed By: #### 5 8410-2 #### [facility] CLIA [id number] [address] [place] [address] [place] Differential cell count method Nom (Bld) Auto Normal [facility] Comment on above: Order Comment: Speci men Type: BLOOD SPECIMEN Ordering Facility: [facility] Address: [address] [place] [address] Performed By: #### 5 8410-2 #### [facility] CLIA [id number] [address] [place] [address] [place] Eosinophils (Bld) [#/Vol] 10*3/uL Normal <0.46 [facility] Comment on above: Order Comment: Speci men Type: BLOOD SPECIMEN Ordering Facility: [facility] Address: [address] [place] [address] Performed By: #### 5 8410-2 #### [facility] CLIA [id number] [address] [place] [address] [place] Eosinophils/100 WBC (Bld) 0.0 % Normal [facility] Comment on above: Order Comment: Speci men Type: BLOOD SPECIMEN Ordering Facility: [facility] Address: [address] [place] [address] Performed By: #### 5 8410-2 #### [facility] CLIA [id number] [address] [place] [address] [place] Erythrocyte distribution width (RBC) [Ratio] 13.8 % Normal 11.5-15.0 [facility] Comment on above: Order Comment: Speci men Type: BLOOD SPECIMEN Ordering Facility: [facility] Address: [address] [place] [address] Performed By: #### 5 8410-2 #### [facility] CLIA [id number] [address] [place] [address] [place] Hematocrit (Bld) [Volume fraction] 35.9 % Low 39.0-51.0 [facility] Comment on above: Order Comment: Speci men Type: BLOOD SPECIMEN Ordering Facility: [facility] Address: [address] [place] [address] Performed By: #### 5 8410-2 #### [facility] CLIA [id number] [address] [place] [address] [place] Hemoglobin (Bld) [Mass/Vol] 12.3 g/dL Low 13.0-17.0 [facility] Comment on above: Order Comment: Speci men Type: BLOOD SPECIMEN Ordering Facility: [facility] Address: [address] [place] [address] Performed By: #### 5 8410-2 #### [facility] CLIA [id number] [address] [place] [address] [place] Immature granulocytes (Bld) [#/Vol] 0.08 10*3/uL Normal <0.10 [facility] Comment on above: Order Comment: Speci men Type: BLOOD SPECIMEN Ordering Facility: [facility] Address: [address] [place] [address] Performed By: #### 5 8410-2 #### [facility] CLIA [id number] [address] [place] [address] [place] Immature granulocytes/100 WBC (Bld) 0.6 % Normal [facility] Comment on above: Order Comment: Speci men Type: BLOOD SPECIMEN Ordering Facility: [facility] Address: [address] [place] [address] Performed By: #### 5 8410-2 #### [facility] CLIA [id number] [address] [place] [address] [place] Lymphocytes (Bld) [#/Vol] 0.83 10*3/uL Low 1.00-4.00 [facility] Comment on above: Order Comment: Speci men Type: BLOOD SPECIMEN Ordering Facility: [facility] Address: [address] [place] [address] Performed By: #### 5 8410-2 #### [facility] CLIA [id number] [address] [place] [address] [place] Lymphocytes/100 WBC (Bld) 6.3 % Normal [facility] Comment on above: Order Comment: Speci men Type: BLOOD SPECIMEN Ordering Facility: [facility] Address: [address] [place] [address] Performed By: #### 5 8410-2 #### [facility] CLIA [id number] [address] [place] [address] [place] MCH (RBC) [Entitic mass] 32.0 pg Normal 26.0-34.0 [facility] Comment on above: Order Comment: Speci men Type: BLOOD SPECIMEN Ordering Facility: [facility] Address: [address] [place] [address] Performed By: #### 5 8410-2 #### [facility] CLIA [id number] [address] [place] [address] [place] MCHC (RBC) [Mass/Vol] 34.3 g/dL Normal 30.5-36.0 [facility] Comment on above: Order Comment: Speci men Type: BLOOD SPECIMEN Ordering Facility: [facility] Address: [address] [place] [address] Performed By: #### 5 8410-2 #### [facility] CLIA [id number] [address] [place] [address] [place] MCV (RBC) [Entitic vol] 93.5 fL Normal 80.0-100.0 [facility] Comment on above: Order Comment: Speci men Type: BLOOD SPECIMEN Ordering Facility: [facility] Address: [address] [place] [address] Performed By: #### 5 8410-2 #### [facility] CLIA [id number] [address] [place] [address] [place] Monocytes (Bld) [#/Vol] 1.03 10*3/uL High <0.87 [facility] Comment on above: Order Comment: Speci men Type: BLOOD SPECIMEN Ordering Facility: [facility] Address: [address] [place] [address] Performed By: #### 5 8410-2 #### [facility] CLIA [id number] [address] [place] [address] [place] Monocytes/100 WBC (Bld) 7.8 % Normal [facility] Comment on above: Order Comment: Speci men Type: BLOOD SPECIMEN Ordering Facility: [facility] Address: [address] [place] [address] Performed By: #### 5 8410-2 #### [facility] CLIA [id number] [address] [place] [address] [place] Neutrophils (Bld) [#/Vol] 11.23 10*3/uL High 1.45-7.50 [facility] Comment on above: Order Comment: Speci men Type: BLOOD SPECIMEN Ordering Facility: [facility] Address: [address] [place] [address] Performed By: #### 5 8410-2 #### [facility] CLIA [id number] [address] [place] [address] [place] Neutrophils/100 WBC (Bld) 85.1 % Normal [facility] Comment on above: Order Comment: Speci men Type: BLOOD SPECIMEN Ordering Facility: [facility] Address: [address] [place] [address] Performed By: #### 5 8410-2 #### [facility] CLIA [id number] [address] [place] [address] [place] Nucleated RBC (Bld) [#/Vol] 10*3/uL Normal <0.01 [facility] Comment on above: Order Comment: Speci men Type: BLOOD SPECIMEN Ordering Facility: [facility] Address: [address] [place] [address] Performed By: #### 5 8410-2 #### [facility] CLIA [id number] [address] [place] [address] [place] Nucleated RBC/100 WBC (Bld) [Ratio] 0.0 /100 WBC Normal [facility] Comment on above: Order Comment: Speci men Type: BLOOD SPECIMEN Ordering Facility: [facility] Address: [address] [place] [address] Performed By: #### 5 8410-2 #### [facility] CLIA [id number] [address] [place] [address] [place] Platelet mean volume (Bld) [Entitic vol] 11.8 fL Normal 9.0-12.7 [facility] Comment on above: Order Comment: Speci men Type: BLOOD SPECIMEN Ordering Facility: [facility] Address: [address] [place] [address] Performed By: #### 5 8410-2 #### [facility] CLIA [id number] [address] [place] [address] [place] Platelets (Bld) [#/Vol] 133 10*3/uL Low 150-400 [facility] Comment on above: Order Comment: Speci men Type: BLOOD SPECIMEN Ordering Facility: [facility] Address: [address] [place] [address] Result Comment: Resu lts checked and verified.No clot detected. Performed By: #### 5 8410-2 #### [facility] CLIA [id number] [address] [place] [address] [place] RBC (Bld) [#/Vol] 3.84 10*6/uL Low 4.20-6.00 [facility] Comment on above: Order Comment: Speci men Type: BLOOD SPECIMEN Ordering Facility: [facility] Address: [address] [place] [address] Performed By: #### 5 8410-2 #### [facility] CLIA [id number] [address] [place] [address] [place] WBC (Bld) [#/Vol] 13.20 10*3/uL High 3.70-11.00 [facility] Comment on above: Order Comment: Speci men Type: BLOOD SPECIMEN Ordering Facility: [facility] Address: [address] [place] [address] Performed By: #### 5 8410-2 #### [facility] CLIA [id number] [address] [place] [address] [place] CNDSon 06-01-2023 CNDS HNO ID: [id number] Author: AARON MCKEON DO Service: Hospital Medicine Author Type: Physician Type: Discharge Summary Filed: 06/02/2023 22:33 Note Text: DISCHARGE SUMMARY PATIENT NAME: Henrik Ma Code Status: Full Code Highest Readmission Risk Score: 14 The 30 day readmissions risk score is derived from an internally validated risk model which evaluates patient level characteristics, utilization history, medication orders and lab results up until the day of discharge. Patients with a score of 40 or above are considered highest risk for readmission. Specific patient level drivers will be listed at the bottom of the summary. Admission Information Admission Information ADMIT DATE: 05/30/2023 DISCHARGE DATE: 06/01/2023 MY DOCTORS AND MEDICAL TEAM: My Main Hospital Doctor: Aaron Mckeon DO Primary Care Provider: Giovanni Persaud MD My Medical Team Members: Treatment Team: Attending Provider: Aaron Mckeon DO Attending: MR KASHMIR LUIS MY CONDITION AT DISCHARGE: Fair REASON I WAS IN THE HOSPITAL: Acute cholecystitis with necrosis SUMMARY OF WHAT HAPPENED WHILE I WAS IN THE HOSPITAL: Admitted for consultation to general surgery to remove gallbladder, accomplished laparoscopically then continued on iv antibiotics at least 24 hours and reassessed clinically for improvement, tolerance of diet, and bowel movements to discharge home OTHER PROBLEMS/DIAGNOSIS: Principal Problem (Resolved): Acute cholecystitis Active Problems: Esophageal reflux Essential hypertension, benign CKD (chronic kidney disease) stage 3, GFR 30-59 ml/min ([facility]) OPERATIONS PERFORMED WHILE IN THE HOSPITAL: laparoscopic cholecystectomy IMPORTANT TEST/PROCEDURES: No procedures performed TEST RESULTS NOT AVAILABLE AT THIS TIME: No pending results Discharge Disposition Discharge Disposition: Home With Self Care Activity When You Leave the Hospital Limited to: NO strenuous activity or lifting >10-15 lbs for 3-4 weeks May use stairs No walking restrictions Other: May shower 24 hours post op. Do not bathe, swim, or use hot tub for 3 weeks Resume pre-hospital activity Diet Instructions Drink 6 to 8 glasses of fluids per day Resume your pre-hospital diet For Pain When You Leave the Hospital If you become constipated, you may use any aute-ljn-zpxkeqo treatment such as Milk of Magnesia, Sennakot, Prune Juice, Suppositories, etc. in addition to the stool softener/fiber supplement No alcohol or driving while on pain medication Some muscle ache can be expected for a day or two Use acetaminophen (Tylenol) as recommended on the bottle Use ibuprofen (Motrin, Advil) as recommended on the bottle Use the dispensed medication (see prescription) You should use an vrmh-wlq-jidlfvi stool softener (Docusate sodium) and/or a fiber supplement (Metamucil, Fiber Con) every day while taking prescribed pain medication Wound/Surgical Site Care Leave open to air Some bleeding from the wound/surgical site can be expected. If excessive, see a doctor at once Wash your hands frequently, especially before touching your incision, after using restroom and before eating Your incision has skin glue. It will peel off on its own. It can get wet Call Your Doctor If There is an unusual odor from the wound area There is an unusual odor from the wound area There is severe pain at the operative site There is severe pain at the operative site You have a severe headache You have difficulty urinating or pain when urinating You have lightheadedness, fainting, or confusion You have lightheadedness, fainting, or confusion You have pain and swelling in your legs, especially if it is only on one side and not the other You have pain with urination, cloudy urine or foul smelling urine You have persistent nausea/vomiting over 24 hours You have persistent nausea/vomiting over 24 hours You have persistent or heavy bleeding You have persistent or heavy bleeding You have redness, swelling, pus or drainage from the wound You have redness, swelling, pus or drainage from the wound You have swollen glands or cold and clammy skin Your temperature is greater than 101F Your temperature is greater than 101F Follow Up Appointments Follow-Up Appointment When: In 2 weeks Patient/Parents to call for appointment?: Yes Jaun Leblanc MD [phone] [place] [address] [place] [address] PCP Requested Referral Additional Provider to Provider Information: Treatment Team: Attending Provider: Aaron Mckeon DO Attending: MR KASHMIR LUIS Transitions of Care Critical Issues: SPECIALIST FOLLOW-UP: Dr Leblanc LABS AND PROCEDURES PENDING AT DISCHARGE: No pending results. FOLLOW-UP APPOINTMENTS ALREADY SCHEDULED WITH A [facility] PROVIDER: Future Appointments Date Time Provider Department Center 11/21/2023 9:00 AM Giovanni Persaud MD [facility] YESSENIA SUGGS (more content not included)... Normal [facility] CONSULT PROGon 06-01-2023 CONSULT PROG HNO ID: [id number] Author: JAUN LEBLANC MD Service: General Surgery Author Type: Physician Type: Consult Progress Note Filed: 06/01/2023 11:21 Note Text: Emergency General Surgery (EGS) Progress Note SERVICE DATE: June 01, 2023 SUBJECTIVE: Pain controlled, tolerating diet without nausea or emesis. LFTs back to baseline Tolerating diet DIET GASTRO INTESTINAL OBJECTIVE: Vitals: Temp (24hrs), Av.7 ?C (98.1 ?F), Min:36.6 ?C (97.8 ?F), Max:36.8 ?C (98.3 ?F) BP 153/76 Pulse 68 Temp 36.8 ?C (98.3 ?F) (Oral) Resp 16 Ht 182.9 cm (6') Wt 88.7 kg (195 lb 8 oz) SpO2 95% BMI 26.51 kg/m? O2 Therapy: Room Air IANDO: Date 05/31/23 07 - 06/01/23 0659 06/01/23 07 - 06/02/23 0659 Shift 9816-0153 1227-1130 3076-1729 24 Hour Total 4882-4445 9441-7739 7307-9295 24 Hour Total INTAKE IV 2442 2442 Volume (mL) (NaCl 0.9% iv infusion) 2442 2442 Shift Total 2442 2442 OUTPUT Urine 175 175 Void (ml) 175 175 # of BMs Number of BMs 2 x 2 x Shift Total 175 175 Weight (kg) 88.5 88.5 88.7 88.7 88.7 88.7 88.7 88.7 MEDICATIONS Current Facility-Administered Medications Medication Dose Route Frequency ipratropium-albuterol 3 mL nebulizer solution (DUONEB) 3 mL INHALATION q 4 H PRN tamsulosin 0.4 mg cap(s) (FLOMAX) 0.4 mg ORAL DAILY metoprolol tartrate (short acting) 50 mg tab(s) (LOPRESSOR) 50 mg ORAL q 12 H gabapentin 300 mg cap(s) (NEURONTIN) 300 mg ORAL DAILY piperacillin-tazobacta m iv piggyback 3.375 g in dextrose (iso-osmotic) 50 mL (ZOSYN) 3.375 g INTRAVENOUS q 6 HR NaCl 0.9% iv flush bag 20 mL INTRAVENOUS PRN NaCl 0.9% iv infusion 100 mL/hr INTRAVENOUS CONTINUOUS aluminum-magnesium hydroxide-simethicone 200-200-20 mg/5 mL 30 mL 30 mL ORAL DAILY PRN ondansetron 4 mg tab(s) (ZOFRAN) 4 mg ORAL q 6 H PRN Or ondansetron (PF) 4 mg injection (ZOFRAN) 4 mg INTRAVENOUS q 6 H PRN melatonin 1 mg tab(s) 1 mg ORAL AT BEDTIME PRN benzonatate 200 mg cap(s) (TESSALON PERLE) 200 mg ORAL TID PRN albuterol 2.5 mg /3 mL (0.083 %) 2.5 mg (PROVENTIL) 2.5 mg INHALATION q 4 H PRN morphine 4 mg injection 4 mg INTRAVENOUS q 4 H PRN oxyCODONE IR 5 mg tab(s) (ROXICODONE) 5 mg ORAL q 6 H PRN acetaminophen 650 mg tab(s) (TYLENOL) 650 mg ORAL QID Labs: Recent Labs 06/01/23 0704 06/01/23 0453 05/31/23 0748 05/31/23 0533 05/30/23 0550 NA -- 143 -- 142 142 K 4.5 -- -- 4.3 4.4 CHLOR -- 112* -- 111* 108* CO2 -- 24 -- 24 28 BUN -- 30* -- 28* 28* CREAT -- 1.30 -- 1.32 1.43* GLUC -- 122* -- 181* 112* ANION -- 7 -- 7 6 CA -- 8.0* -- 8.3* 8.8 ALB -- 2.1* 2.3* -- 2.5* AST 64* -- 75* -- 33 ALT -- 53 53 -- 22 ALKPHOS -- 120* 122* -- 99 TBILI -- 1.7* 2.0* -- 2.2* WBC -- 13.20* -- 12.99* 14.34* HB -- 12.3* -- 12.4* 12.8* HCT -- 35.9* -- 36.4* 37.1* PLT -- 133* -- 132* 130* INR -- -- -- -- 1.0 Exam: GENERAL: No distress, Alert NEURO: AANDOx3, CN II-XII grossly intact HEENT: normocephalic, atraumatic LUNGS: Unlabored breathing CARDIAC: Regular rate and rhythm as above ABDOMEN: Soft, appropriately-tender, non-distended, incisions CDI EXTREMITIES: RIGGINS, No deformities SKIN: Skin color, texture, turgor normal ASSESSMENT AND PLAN: Active Hospital Problems Diagnosis Date Noted Acute cholecystitis 05/29/2023 CKD (chronic kidney disease) stage 3, GFR 30-59 ml/min ([facility]) 08/04/2016 Esophageal reflux 04/05/2005 Essential hypertension, benign 04/05/2005 83 year old male presents from [place] with acute acalculous cholecystitis. 05/29 laparoscopic cholecystectomy with gangrenous gallbladder -Diet as tolerated -Would send the patient home with scheduled Tylenol and ibuprofen and senna S for 5 days -LFTs continue to improve, within patient's baseline. -Discharge instructions already placed, patient can follow-up in 2 weeks in my office -Ok to discharge, will sign off, call with questions Please Note: This office note has been created using Spacebar, a speech recognition software program, and may contain errors including punctuation, grammar, spelling, gender, and inappropriate words or phrases that pertain to the system. SIGNATURE: Jaun Leblanc MD PATIENT NAME: Henrik Ma DATE: June 01, 2023 TIME: 11:19 AM Pager: [phone] Normal [facility] Comprehensive metabolic 2000 panelon 06-01-2023 Albumin [Mass/Vol] 2.1 g/dL Low 3.2-5.0 [facility] Comment on above: Order Comment: Anai lui Type: BLOOD SPECIMEN Ordering Facility: [facility] Address: [address] [place] [address] Performed By: #### 3 4528-0, 92122-2 #### [facility] CLIA [id number] [address] [place] [address] [place] ALP [Catalytic activity/Vol] 120 U/L High 45-117 [facility] Comment on above: Order Comment: Anai lui Type: BLOOD SPECIMEN Ordering Facility: [facility] Address: [address] [place] [address] Performed By: #### 3 4528-0, 74824-3 #### [facility] CLIA [id number] [address] [place], [place] [id number] [place] ALT [Catalytic activity/Vol] 53 U/L Normal 13-61 [facility] Comment on above: Order Comment: Speci hu Type: BLOOD SPECIMEN Ordering Facility: [facility] Address: [address] [place] [address] Result Comment: Resu lts may be falsely depressed after the administration of Sulfasalazine and/or Sulfapyridine. Performed By: #### 3 4528-0, 54350-2 #### [facility] CLIA [id number] [address] [place] [address] [place] Anion gap [Moles/Vol] 7 mmol/L Normal 5-16 [facility] Comment on above: Order Comment: Stacii hu Type: BLOOD SPECIMEN Ordering Facility: [facility] Address: [address] [place] [address] Performed By: #### 3 4528-0, 07323-1 #### [facility] CLIA [id number] [address] [place] [address] [place] AST [Catalytic activity/Vol] Normal [facility] Comment on above: Order Comment: Anai lui Type: BLOOD SPECIMEN Ordering Facility: [facility] Address: [address] [place] [address] Result Comment: Unab le to assay due to interference from hemolysis. Suggest reorder as clinically indicated. &XA&notified gayle, no k and ast Results may be falsely depressed after the administration of Sulfasalazine and/or Sulfapyridine. Performed By: #### 3 4528-0, 57450-7 #### [facility] CLIA [id number] [address] [place] [address] [place] Bilirubin [Mass/Vol] 1.7 mg/dL High 0.2-1.0 [facility] Comment on above: Order Comment: Stacii hu Type: BLOOD SPECIMEN Ordering Facility: [facility] Address: [address] [place] [address] Performed By: #### 3 4528-0, 29447-4 #### [facility] CLIA [id number] [address] [place] [address] [place] Calcium [Mass/Vol] 8.0 mg/dL Low 8.5-10.5 [facility] Comment on above: Order Comment: Speci men Type: BLOOD SPECIMEN Ordering Facility: [facility] Address: [address] [place] [address] Performed By: #### 3 4528-0, 34730-7 #### [facility] CLIA [id number] [address] [place] [address] [place] Chloride [Moles/Vol] 112 mmol/L High 98-107 [facility] Comment on above: Order Comment: Speci men Type: BLOOD SPECIMEN Ordering Facility: [facility] Address: [address] [place] [address] Performed By: #### 3 4528-0, 44535-8 #### [facility] CLIA [id number] [address] [place] [address] [place] CO2 [Moles/Vol] 24 mmol/L Normal 21-32 [facility] Comment on above: Order Comment: Speci men Type: BLOOD SPECIMEN Ordering Facility: [facility] Address: [address] [place] [address] Performed By: #### 3 4528-0, 66424-4 #### [facility] CLIA [id number] [address] [place] [address] [place] Creatinine [Mass/Vol] 1.30 mg/dL Normal 0.50-1.40 [facility] Comment on above: Order Comment: Speci men Type: BLOOD SPECIMEN Ordering Facility: [facility] Address: [address] [place] [address] Result Comment: Yary ents receiving either N-Acetylcysteine (NAC) or Metamizole prior to venipuncture, may have falsely depressed results. Performed By: #### 3 4528-0, 38477-5 #### [facility] CLIA [id number] [address] Creatinine and Glomerular filtration rate.predicted panel (S/P/Bld) 54 mL/min/1.73m??? Low >=60 [facility] Comment on above: Order Comment: Anai lui Type: BLOOD SPECIMEN Ordering Facility: [facility] Address: [address] [place] [address] Result Comment: Christina mated Glomerular Filtration Rate (eGFR) is calculated using the 2020 CKD-EPI creatinine equation. This equation utilizes serum creatinine, sex, and age as parameters. The creatinine assay has traceable calibration to isotope dilution-mass spectrometry. Refer to KDIGO guidelines for clinical interpretation. In patients with unstable renal function, e.g. those with acute kidney injury, the eGFR may not accurately reflect actual GFR. Performed By: #### 3 4528-0, 03851-9 #### [facility] CLIA [id number] [address] [place] [address] [place] Glucose [Mass/Vol] 122 mg/dL High 70-100 [facility] Comment on above: Order Comment: Anai lui Type: BLOOD SPECIMEN Ordering Facility: [facility] Address: [address] [place] [address] Result Comment: The [place] Diabetes [employer] (ADA) provides guidance for cutoff values for fasting glucose and random glucose. The ADA defines fasting as no caloric intake for at least 8 hours. Fasting plasma glucose results between 100 to 125 mg/dL indicate increased risk for diabetes (prediabetes). Fasting plasma glucose results greater than or equal to 126 mg/dL meet the criteria for diagnosis of diabetes. In the absence of unequivocal hyperglycemia, results should be confirmed by repeat testing. In a patient with classic symptoms of hyperglycemia or hyperglycemic crisis, random plasma glucose results greater than or equal to 200 mg/dL meet the criteria for diagnosis of diabetes. Reference: Standards of Medical Care in Diabetes 2016, [place] [employer]. Diabetes Care. 2016.39(Suppl 1). Results may be falsely elevated after the administration of Sulfapyridine. Results may be falsely depressed after the administration of Sulfasalazine. Performed By: #### 3 4528-0, 07210-6 #### [facility] CLIA [id number] [address] [place] [address] [place] Potassium [Moles/Vol] Normal [facility] Comment on above: Order Comment: Speci men Type: BLOOD SPECIMEN Ordering Facility: [facility] Address: [address] [place] [address] Result Comment: Unab le to assay due to interference from hemolysis. Suggest reorder as clinically indicated. Performed By: #### 3 4528-0, 30688-9 #### [facility] CLIA [id number] [address] [place] [address] [place] Protein [Mass/Vol] 5.0 g/dL Low 6.0-8.5 [facility] Comment on above: Order Comment: Speci men Type: BLOOD SPECIMEN Ordering Facility: [facility] Address: [address] [place] [address] Performed By: #### 3 4528-0, 87797-6 #### [facility] CLIA [id number] [address] [place] [address] [place] Sodium [Moles/Vol] 143 mmol/L Normal 136-145 [facility] Comment on above: Order Comment: Speci men Type: BLOOD SPECIMEN Ordering Facility: [facility] Address: [address] [place] [address] Performed By: #### 3 4528-0, 67800-2 #### [facility] CLIA [id number] [address] [place] [address] [place] Urea nitrogen [Mass/Vol] 30 mg/dL High 7-26 [facility] Comment on above: Order Comment: Speci men Type: BLOOD SPECIMEN Ordering Facility: [facility] Address: [address] [place] [address] Performed By: #### 3 4528-0, 12232-3 #### [facility] CLIA [id number] [address] [place] [address] [place] POTASSIUM BLDon 06-01-2023 Potassium [Moles/Vol] 4.5 mmol/L Normal 3.5-5.1 [facility] Comment on above: Order Comment: Speci men Type: BLOOD SPECIMEN Ordering Facility: [facility] Address: [address] [facility] [place] [address] Performed By: #### 3 4528-0, 63476-3 #### [facility] CLIA [id number] [address] [place] [address] [place] Basic metabolic 2000 panelon 05-31-2023 Anion gap [Moles/Vol] 7 mmol/L Normal 5-16 [facility] Comment on above: Order Comment: Speci men Type: BLOOD SPECIMEN Ordering Facility: [facility] Address: [address] [place] [address] Performed By: #### 5 8410-2 #### [facility] CLIA [id number] [address] [place] [address] [place] Calcium [Mass/Vol] 8.3 mg/dL Low 8.5-10.5 [facility] Comment on above: Order Comment: Speci men Type: BLOOD SPECIMEN Ordering Facility: [facility] Address: [address] [place] [address] Performed By: #### 5 8410-2 #### [facility] CLIA [id number] [address] [place] [address] [place] Chloride [Moles/Vol] 111 mmol/L High 98-107 [facility] Comment on above: Order Comment: Speci men Type: BLOOD SPECIMEN Ordering Facility: [facility] Address: [address] [place] [address] Performed By: #### 5 8410-2 #### [facility] CLIA [id number] [address] [place] [address] [place] CO2 [Moles/Vol] 24 mmol/L Normal 21-32 [facility] Comment on above: Order Comment: Speci men Type: BLOOD SPECIMEN Ordering Facility: [facility] Address: [address] [place] [address] [place] [address] Performed By: #### 5 8410-2 #### [facility] CLIA [id number] [address] [place] [address] [place] Creatinine [Mass/Vol] 1.32 mg/dL Normal 0.50-1.40 [facility] Comment on above: Order Comment: Anai lui Type: BLOOD SPECIMEN Ordering Facility: [facility] Address: [address] [place] [address] Result Comment: Yary ents receiving either N-Acetylcysteine (NAC) or Metamizole prior to venipuncture, may have falsely depressed results. Performed By: #### 5 8410-2 #### [facility] CLIA [id number] [address] [place] [address] [place] Creatinine and Glomerular filtration rate.predicted panel (S/P/Bld) 53 mL/min/1.73m??? Low >=60 [facility] Comment on above: Order Comment: Anai lui Type: BLOOD SPECIMEN Ordering Facility: [facility] Address: [address] [place] [address] Result Comment: Christina mated Glomerular Filtration Rate (eGFR) is calculated using the 2020 CKD-EPI creatinine equation. This equation utilizes serum creatinine, sex, and age as parameters. The creatinine assay has traceable calibration to isotope dilution-mass spectrometry. Refer to KDIGO guidelines for clinical interpretation. In patients with unstable renal function, e.g. those with acute kidney injury, the eGFR may not accurately reflect actual GFR. Performed By: #### 5 8410-2 #### [facility] CLIA [id number] [address] [place] [address] [place] Glucose [Mass/Vol] 181 mg/dL High 70-100 [facility] Comment on above: Order Comment: Anai lui Type: BLOOD SPECIMEN Ordering Facility: [facility] Address: [address] [place] [address] Result Comment: The [place] Diabetes [employer] (ADA) provides guidance for cutoff values for fasting glucose and random glucose. The ADA defines fasting as no caloric intake for at least 8 hours. Fasting plasma glucose results between 100 to 125 mg/dL indicate increased risk for diabetes (prediabetes). Fasting plasma glucose results greater than or equal to 126 mg/dL meet the criteria for diagnosis of diabetes. In the absence of unequivocal hyperglycemia, results should be confirmed by repeat testing. In a patient with classic symptoms of hyperglycemia or hyperglycemic crisis, random plasma glucose results greater than or equal to 200 mg/dL meet the criteria for diagnosis of diabetes. Reference: Standards of Medical Care in Diabetes 2016, [place] [employer]. Diabetes Care. 2016.39(Suppl 1). Results may be falsely elevated after the administration of Sulfapyridine. Results may be falsely depressed after the administration of Sulfasalazine. Performed By: #### 5 8410-2 #### [facility] CLIA [id number] [address] [place] [address] [place] Potassium [Moles/Vol] 4.3 mmol/L Normal 3.5-5.1 [facility] Comment on above: Order Comment: Speci men Type: BLOOD SPECIMEN Ordering Facility: [facility] Address: [address] [place] [address] Performed By: #### 5 8410-2 #### [facility] CLIA [id number] [address] [place] [address] [place] Sodium [Moles/Vol] 142 mmol/L Normal 136-145 [facility] Comment on above: Order Comment: Speci men Type: BLOOD SPECIMEN Ordering Facility: [facility] Address: [address] [place] [address] Performed By: #### 5 8410-2 #### [facility] CLIA [id number] [address] [place] [address] [place] Urea nitrogen [Mass/Vol] 28 mg/dL High 7-26 [facility] Comment on above: Order Comment: Speci men Type: BLOOD SPECIMEN Ordering Facility: [facility] Address: [address] [place] [address] Performed By: #### 5 8410-2 #### [facility] CLIA [id number] [address] [place] [address] [place] CBC W Auto Differential pane l (Bld)on 05-31-2023 Basophils (Bld) [#/Vol] 0.03 10*3/uL Normal <0.11 [facility] Comment on above: Order Comment: Speci men Type: BLOOD SPECIMEN Ordering Facility: [facility] Address: [address] [place], [place] [address] Performed By: #### 5 8410-2 #### [facility] CLIA [id number] [address] [place] [address] [place] Basophils/100 WBC (Bld) 0.2 % Normal [facility] Comment on above: Order Comment: Speci men Type: BLOOD SPECIMEN Ordering Facility: [facility] Address: [address] [place] [address] Performed By: #### 5 8410-2 #### [facility] CLIA [id number] [address] [place] [address] [place] Differential cell count method Nom (Bld) Auto Normal [facility] Comment on above: Order Comment: Speci men Type: BLOOD SPECIMEN Ordering Facility: [facility] Address: [address] [place] [address] Performed By: #### 5 8410-2 #### [facility] CLIA [id number] [address] [place] [address] [place] Eosinophils (Bld) [#/Vol] 10*3/uL Normal <0.46 [facility] Comment on above: Order Comment: Speci men Type: BLOOD SPECIMEN Ordering Facility: [facility] Address: [address] [place] [address] Performed By: #### 5 8410-2 #### [facility] CLIA [id number] [address] [place] [address] [place] Eosinophils/100 WBC (Bld) 0.0 % Normal [facility] Comment on above: Order Comment: Speci men Type: BLOOD SPECIMEN Ordering Facility: [facility] Address: [address] [place] [address] Performed By: #### 5 8410-2 #### [facility] CLIA [id number] [address] [place] [address] [place] Erythrocyte distribution width (RBC) [Ratio] 13.5 % Normal 11.5-15.0 [facility] Comment on above: Order Comment: Speci men Type: BLOOD SPECIMEN Ordering Facility: [facility] Address: [address] [place] [address] Performed By: #### 5 8410-2 #### [facility] CLIA [id number] [address] [place] [address] [place] Hematocrit (Bld) [Volume fraction] 36.4 % Low 39.0-51.0 [facility] Comment on above: Order Comment: Speci men Type: BLOOD SPECIMEN Ordering Facility: [facility] Address: [address] [place] [address] Performed By: #### 5 8410-2 #### [facility] CLIA [id number] [address] [place] [address] [place] Hemoglobin (Bld) [Mass/Vol] 12.4 g/dL Low 13.0-17.0 [facility] Comment on above: Order Comment: Speci men Type: BLOOD SPECIMEN Ordering Facility: [facility] Address: [address] [place] [address] Performed By: #### 5 8410-2 #### [facility] CLIA [id number] [address] [place] [address] [place] Immature granulocytes (Bld) [#/Vol] 0.08 10*3/uL Normal <0.10 [facility] Comment on above: Order Comment: Speci men Type: BLOOD SPECIMEN Ordering Facility: [facility] Address: [address] [place] [address] Performed By: #### 5 8410-2 #### [facility] CLIA [id number] [address] [place] [address] [place] Immature granulocytes/100 WBC (Bld) 0.6 % Normal [facility] Comment on above: Order Comment: Speci men Type: BLOOD SPECIMEN Ordering Facility: [facility] Address: [address] [place] [address] Performed By: #### 5 8410-2 #### [facility] CLIA [id number] [address] [place] [address] [place] Lymphocytes (Bld) [#/Vol] 0.43 10*3/uL Low 1.00-4.00 [facility] Comment on above: Order Comment: Speci men Type: BLOOD SPECIMEN Ordering Facility: [facility] Address: [address] [place] [address] Performed By: #### 5 8410-2 #### [facility] CLIA [id number] [address] [place] [address] [place] Lymphocytes/100 WBC (Bld) 3.3 % Normal [facility] Comment on above: Order Comment: Speci men Type: BLOOD SPECIMEN Ordering Facility: [facility] Address: [address] [place] [address] Performed By: #### 5 8410-2 #### [facility] CLIA [id number] [address] [place] [address] [place] MCH (RBC) [Entitic mass] 31.9 pg Normal 26.0-34.0 [facility] Comment on above: Order Comment: Speci men Type: BLOOD SPECIMEN Ordering Facility: [facility] Address: [address] [place] [address] Performed By: #### 5 8410-2 #### [facility] CLIA [id number] [address] [place] [address] [place] MCHC (RBC) [Mass/Vol] 34.1 g/dL Normal 30.5-36.0 [facility] Comment on above: Order Comment: Speci men Type: BLOOD SPECIMEN Ordering Facility: [facility] Address: [address] [place] [address] Performed By: #### 5 8410-2 #### [facility] CLIA [id number] [address] [place] [address] [place] MCV (RBC) [Entitic vol] 93.6 fL Normal 80.0-100.0 [facility] Comment on above: Order Comment: Speci men Type: BLOOD SPECIMEN Ordering Facility: [facility] Address: [address] [place] [address] Performed By: #### 5 8410-2 #### [facility] CLIA [id number] [address] [place] [address] [place] Monocytes (Bld) [#/Vol] 0.84 10*3/uL Normal <0.87 [facility] Comment on above: Order Comment: Speci men Type: BLOOD SPECIMEN Ordering Facility: [facility] Address: [address] [place] [address] Performed By: #### 5 8410-2 #### [facility] CLIA [id number] [address] [place] [address] [place] Monocytes/100 WBC (Bld) 6.5 % Normal [facility] Comment on above: Order Comment: Speci men Type: BLOOD SPECIMEN Ordering Facility: [facility] Address: [address] [place] [address] Performed By: #### 5 8410-2 #### [facility] CLIA [id number] [address] [place] [address] [place] Neutrophils (Bld) [#/Vol] 11.61 10*3/uL High 1.45-7.50 [facility] Comment on above: Order Comment: Speci men Type: BLOOD SPECIMEN Ordering Facility: [facility] Address: [address] [place] [address] Performed By: #### 5 8410-2 #### [facility] CLIA [id number] [address] [place] [address] [place] Neutrophils/100 WBC (Bld) 89.4 % Normal [facility] Comment on above: Order Comment: Speci men Type: BLOOD SPECIMEN Ordering Facility: [facility] Address: [address] [place] [address] Performed By: #### 5 8410-2 #### [facility] CLIA [id number] [address] [place] [address] [place] Nucleated RBC (Bld) [#/Vol] 10*3/uL Normal <0.01 [facility] Comment on above: Order Comment: Speci men Type: BLOOD SPECIMEN Ordering Facility: [facility] Address: [address] [place] [address] Performed By: #### 5 8410-2 #### [facility] CLIA [id number] [address] [place] [address] [place] Nucleated RBC/100 WBC (Bld) [Ratio] 0.0 /100 WBC Normal [facility] Comment on above: Order Comment: Speci men Type: BLOOD SPECIMEN Ordering Facility: [facility] Address: [address] [place], [place] [address] Performed By: #### 5 8410-2 #### [facility] CLIA [id number] [address] [place] [address] [place] Platelet mean volume (Bld) [Entitic vol] 11.3 fL Normal 9.0-12.7 [facility] Comment on above: Order Comment: Speci men Type: BLOOD SPECIMEN Ordering Facility: [facility] Address: [address] [place] [address] Performed By: #### 5 8410-2 #### [facility] CLIA [id number] [address] [place] [address] [place] Platelets (Bld) [#/Vol] 132 10*3/uL Low 150-400 [facility] Comment on above: Order Comment: Speci men Type: BLOOD SPECIMEN Ordering Facility: [facility] Address: [address] [place] [address] Performed By: #### 5 8410-2 #### [facility] CLIA [id number] [address] [place] [address] [place] RBC (Bld) [#/Vol] 3.89 10*6/uL Low 4.20-6.00 [facility] Comment on above: Order Comment: Speci men Type: BLOOD SPECIMEN Ordering Facility: [facility] Address: [facility] [place] [address] Performed By: #### 5 8410-2 #### [facility] CLIA [id number] [address] [place], [place] [id number] [place] WBC (Bld) [#/Vol] 12.99 10*3/uL High 3.70-11.00 [facility] Comment on above: Order Comment: Speci men Type: BLOOD SPECIMEN Ordering Facility: [facility] Address: [address] [place], [place] [id number] Performed By: #### 5 8410-2 #### [facility] CLIA [id number] [address] [place] [id number] [place] CONSULT PROGon 05-31-2023 CONSULT PROG HNO ID: [id number] Author: REMY CRAWFORD RPh Service: Pharmacy Author Type: Pharmacist Type: Consult Progress Note Filed: 05/31/2023 19:10 Note Text: PHARMACY PROGRESS NOTE Patient Name: Henrik Ma Admission Date: 05/30/2023 Date of Consult: 05/31/2023 Time of Consult: 7:10 PM In accordance with the pharmacy dose optimization service, the following medication changes/decisions have been made: Medication Current Regimen Dosing Assessment Indication Assessment/Plan Piperacillin/tazobacta m 3.375g Q8h Modify dosing to 3.375g Q6h infection (confirmed/suspected [empiric]) Order has been modified to standard dosing based on the patient's estimated renal function: CrCl 44.9 mL/min .RXDOSEOPTIMIZATIONMOR EMEDS> For medications which dose is dependent on renal function, a pharmacist will monitor renal function daily and adjust doses accordingly. Any dose adjustments needed based on changes in indication should be addressed by an LIP. If you have any questions, please contact pharmacy at [phone]. Estimated Creatinine Clearance: 44.9 mL/min (based on SCr of 1.32 mg/dL). Serum creatinine and eGFR results 72 hours 05/31/2023 05/30/2023 5:33 AM 5:50 AM SCr (mg/dL) 1.32 1.43 eGFR (mL/min/1.73m2) 53 48 Allergies: ALLERGIES Allergen Reactions Cats Trees Last 1 Encounter Wt Readings: Date: Wt: 05/29/2023 88.5 kg (195 lb) Last 1 Encounter Ht Readings: Date: Ht: 05/29/2023 182.9 cm (6') Remy Crawford RPh May 31, 2023 7:10 PM Normal [facility] CONSULT PROG HNO ID: [id number] Author: JAUN LEBLANC MD Service: General Surgery Author Type: Physician Type: Consult Progress Note Filed: 05/31/2023 12:51 Note Text: Emergency General Surgery Progress Note SERVICE DATE: May 31, 2023 SUBJECTIVE: 83 year old male resting in bed. Vitals, labs, imaging reviewed. No overnight events reported by nursing staff. Nausea No Emesis No Flatus No Bowel movement No Pain Controlled Yes Ambulating Yes Tolerating diet DIET GASTRO INTESTINAL OBJECTIVE: Vitals: Temp (24hrs), Av.9 ?C (98.5 ?F), Min:36.6 ?C (97.9 ?F), Max:37.2 ?C (99 ?F) BP 126/60 Pulse 80 Temp 37.1 ?C (98.7 ?F) (Axillary) Resp 20 Ht 182.9 cm (6') Wt 88.5 kg (195 lb) SpO2 95% BMI 26.45 kg/m? O2 Therapy: Room Air IANDO: Date 05/30/23 07 - 05/31/23 0659 05/31/23 07 - 06/01/23 0659 Shift 8813-4514 0164-9664 5046-5418 24 Hour Total 1107-3556 5928-0310 7657-4396 24 Hour Total INTAKE PO 100 100 PO 100 100 IV 1325 2263 3588 IVPB 125 125 Volume (mL) (piperacillin-tazobact am iv piggyback 3.375 g in dextrose (iso-osmotic) 50 mL (ZOSYN)) 200 200 Volume (mL) (NaCl 0.9% iv infusion) 2263 2263 Volume (mL) (lactated ringers iv infusion) 1000 1000 Shift Total 1425 2263 3688 OUTPUT Urine 200 250 450 Void (ml) 200 250 450 Shift Total 200 250 450 Weight (kg) 86.3 86.3 88.5 88.5 88.5 88.5 88.5 88.5 MEDICATIONS Current Facility-Administered Medications Medication Dose Route Frequency ipratropium-albuterol 3 mL nebulizer solution (DUONEB) 3 mL INHALATION q 4 H PRN tamsulosin 0.4 mg cap(s) (FLOMAX) 0.4 mg ORAL DAILY metoprolol tartrate (short acting) 50 mg tab(s) (LOPRESSOR) 50 mg ORAL q 12 H gabapentin 300 mg cap(s) (NEURONTIN) 300 mg ORAL DAILY NaCl 0.9% iv flush bag 20 mL INTRAVENOUS PRN NaCl 0.9% iv infusion 100 mL/hr INTRAVENOUS CONTINUOUS aluminum-magnesium hydroxide-simethicone 200-200-20 mg/5 mL 30 mL 30 mL ORAL DAILY PRN ondansetron 4 mg tab(s) (ZOFRAN) 4 mg ORAL q 6 H PRN Or ondansetron (PF) 4 mg injection (ZOFRAN) 4 mg INTRAVENOUS q 6 H PRN melatonin 1 mg tab(s) 1 mg ORAL AT BEDTIME PRN benzonatate 200 mg cap(s) (TESSALON PERLE) 200 mg ORAL TID PRN azithromycin 500 mg in D5W 250 mL Vial-Bag (ZITHROMAX) 500 mg INTRAVENOUS DAILY piperacillin-tazobacta m iv piggyback 3.375 g in dextrose (iso-osmotic) 50 mL (ZOSYN) 3.375 g INTRAVENOUS q 8 HR albuterol 2.5 mg /3 mL (0.083 %) 2.5 mg (PROVENTIL) 2.5 mg INHALATION q 4 H PRN morphine 4 mg injection 4 mg INTRAVENOUS q 4 H PRN oxyCODONE IR 5 mg tab(s) (ROXICODONE) 5 mg ORAL q 6 H PRN acetaminophen 650 mg tab(s) (TYLENOL) 650 mg ORAL QID Labs: Recent Labs 05/31/23 0748 05/31/23 0533 05/30/23 0550 NA -- 142 142 K -- 4.3 4.4 CHLOR -- 111* 108* CO2 -- 24 28 BUN -- 28* 28* CREAT -- 1.32 1.43* GLUC -- 181* 112* ANION -- 7 6 CA -- 8.3* 8.8 ALB 2.3* -- 2.5* AST 75* -- 33 ALT 53 -- 22 ALKPHOS 122* -- 99 TBILI 2.0* -- 2.2* WBC -- 12.99* 14.34* HB -- 12.4* 12.8* HCT -- 36.4* 37.1* PLT -- 132* 130* INR -- -- 1.0 Exam: GENERAL: No distress, Alert and awake NEURO: AANDOx3, speaking in full sentences HEENT: normocephalic, sclera anicteric, moist MM LUNGS: Chest rise symmetrical, Unlabored breathing CARDIAC: Regular rate and rhythm via assessment ABDOMEN: Soft, non-distended, incisional tenderness at lap sites, clean and intact, no secondary infection suspected EXTREMITIES: Freely moving, No edema SKIN: Skin color normal for ethnicity, no pallor, no diaphoresis ASSESSMENT AND PLAN: Active Hospital Problems Diagnosis Date Noted Acute cholecystitis 05/29/2023 CKD (chronic kidney disease) stage 3, GFR 30-59 ml/min ([facility]) 08/04/2016 Esophageal reflux 04/05/2005 Essential hypertension, benign 04/05/2005 83 year old male who presents from [place] with acute acalculous cholecystitis. 05/29 Lap cholecystectomy Impression / Plan Diet: DIET GASTRO INTESTINAL Pain control Tylenol, oxycodone, morphine Antibiotics azithromycin, Zosyn Will need antibiotics for at least 24 hours postsurgery Hepatic panel within patient's baseline Activity up as tolerated Follow-up in our office with Dr. Gilliam in 2 weeks Please Note: This office note has been created using [employer], a speech recognition software program, and may contain errors including punctuation, grammar, spelling, gender, and inappropriate words or phrases that pertain to the system. SIGNATURE: Rosalva Bruner APRN.CNP PATIENT NAME: Henrik Ma DATE: May 31, 2023 TIME: 12:33 PM Pager: Please message directly 7am-5pm on week days. Direct questions to broadcast operations technician surgeon after hours and on weekends. Attending Note I have personally performed a face to face assessment of the patient and have reviewed the TIFFANIE note and agree with the documentation with my additions below. I performed a substantive portion of the visit including, but not limited to, the h (more content not included)... Normal [facility] Hepatic function 2000 panelo n 05-31-2023 Albumin [Mass/Vol] 2.3 g/dL Low 3.2-5.0 [facility] Comment on above: Order Comment: Speci men Type: BLOOD SPECIMEN Ordering Facility: [facility] Address: [address] [place] [address] Performed By: #### 5 8410-2 #### [facility] CLIA [id number] [address] [place], [place] [address] [place] ALP [Catalytic activity/Vol] 122 U/L High 45-117 [facility] Comment on above: Order Comment: Speci men Type: BLOOD SPECIMEN Ordering Facility: [facility] Address: [address] [place] [address] Performed By: #### 5 8410-2 #### [facility] CLIA [id number] [address] [place] [address] [place] ALT [Catalytic activity/Vol] 53 U/L Normal 13-61 [facility] Comment on above: Order Comment: Anai lui Type: BLOOD SPECIMEN Ordering Facility: [facility] Address: [address] [place] [address] Result Comment: Resu lts may be falsely depressed after the administration of Sulfasalazine and/or Sulfapyridine. Performed By: #### 5 8410-2 #### [facility] CLIA [id number] [address] [place] [address] [place] AST [Catalytic activity/Vol] 75 U/L High 8-34 [facility] Comment on above: Order Comment: Anai lui Type: BLOOD SPECIMEN Ordering Facility: [facility] Address: [address] [place] [address] Result Comment: Resu lts may be falsely depressed after the administration of Sulfasalazine and/or Sulfapyridine. Performed By: #### 5 8410-2 #### [facility] CLIA [id number] [address] [place] [address] [place] Bilirubin [Mass/Vol] 2.0 mg/dL High 0.2-1.0 [facility] Comment on above: Order Comment: Stacii hu Type: BLOOD SPECIMEN Ordering Facility: [facility] Address: [address] [place] [address] Performed By: #### 5 8410-2 #### [facility] CLIA [id number] [address] [place] [address] [place] Bilirubin.conjugated [Mass/Vol] 0.8 mg/dL High 0.0-0.4 [facility] Comment on above: Order Comment: Speci men Type: BLOOD SPECIMEN Ordering Facility: [facility] Address: [address] [place], [place] [address] Performed By: #### 5 8410-2 #### [facility] CLIA [id number] [address] [place], [place] [address] [place] Protein [Mass/Vol] 5.5 g/dL Low 6.0-8.5 [facility] Comment on above: Order Comment: Speci men Type: BLOOD SPECIMEN Ordering Facility: [facility] Address: [address] [place] [address] Performed By: #### 5 8410-2 #### [facility] CLIA [id number] [address] [place] [address] [facility] ANES POSTPROC EVALon 024 ANES POSTPROC EVAL HNO ID: [id number] Author: JASPREET HUGHES MD Service: Anesthesiology Author Type: Anesthesiologist Type: Anesthesia Postprocedure Evaluation Filed: 05/30/2023 21:31 Note Text: POST ANESTHESIA EVALUATION NOTE : 1940 Procedure Summary Date: 05/30/23 Room / Location: OR / OR Anesthesia Start: 1831 Anesthesia Stop: 2058 Procedure: LAPAROSCOPIC CHOLECYSTECTOMY (Abdomen) Diagnosis: Acute cholecystitis (Acute cholecystitis [K81.0]) Surgeons: Jaun Leblanc MD Responsible Provider: Jaspreet Hughes MD Anesthesia Type: general ASA Status: 3 - Emergent Anesthesia Type: general Airway Type: ETT Last Vitals Vitals Value Taken Time BP 159/74 05/30/232114 Temp 36.9 ?C (98.5 ?F) 05/30/232056 Pulse 78 05/30/232129 Resp 20 05/30/232114 SpO2 94 % 05/30/232129 Vitals shown include unfiled device data. Post Anesthesia Patient Status Patient Evaluation: PACU. PACU/ICU Patient Condition: stable. Anticipated Disposition: inpatient floor planned admission. Neurological Status: sleepy but arousable. Pulmonary Status: breathing comfortably on supplemental oxygen Airway Control: returned to baseline unsupported. Cardiovascular Status: stable. Pain Management: clinically adequate Postoperative Hydration: acceptable. Intraoperative Events: no significant anesthesia events Post Operative Nausea/Vomiting Status: no significant post operative nausea or vomiting Recommendation: continue current plan of care. Anesthesia Observations No Documentation SIGNATURE: Jaspreet Hughes MD PATIENT NAME: Henrik Ma DATE: May 30, 2023 TIME: 9:31 PM CSN: [id number] [facility] ANES PRE-OPon 05-30-2023 ANES PRE-OP HNO ID: [id number] Author: JASPREET HUGHES MD Service: Anesthesiology Author Type: Anesthesiologist Type: Anesthesia Preprocedure Evaluation Filed: 05/30/2023 18:27 Note Text: ANESTHESIOLOGY DAY OF SURGERY NOTE : 1940 Procedure Information Date/Time: 05/30/231729 Procedure: LAPAROSCOPIC CHOLECYSTECTOMY (Abdomen) Location: OR 01 / OR Surgeons: Jaun Leblanc MD Estimated body mass index is 25.8 kg/m? as calculated from the following: Height as of this encounter: 182.9 cm (6'). Weight as of this encounter: 86.3 kg (190 lb 4.1 oz). Most recent hematocrit and potassium results: Hematocrit 37.1 05/30/2023 Potassium 4.4 05/30/2023 Relevant Problems ANESTHESIA (within normal limits) CARDIO (+) CAD (coronary artery disease) (+) Essential hypertension, benign ENDO (within normal limits) GI (+) Esophageal reflux -RENAL (+) CKD (chronic kidney disease) stage 3, GFR 30-59 ml/min (HCC) NEURO-PSYCH Terigeminal neuralgia, treated with Gabapentin PULMONARY Recent Covid, March 2023. allegedly Pneumonia on CT scan. I - PHYSICAL EVALUATION AIRWAY Patient intubated: No. Tracheostomy tube not present Mallampati: II. TM distance: >3 FB. Neck ROM: full ROM without neurological symptoms. Mouth opening: adequate. Short neck: no. Thick neck: no Lundberg present: yes Lip Bite Test: II Microretrognathia/Micr onagthia/Recessed Chin: No DENTAL Dental findings: poor dentition. Additional exam findings: yes. CARDIOVASCULAR Rhythm: regular Rate: normal PULMONARY Breath sounds clear to auscultation. II - ANESTHESIA PLAN ASA Score: 3; emergent. Anesthetic Plan: general Airway type: ETT The patient is not a current smoker. NPO Status: adequate Beta Mona Administration of chronic beta mona medication planned. Monitoring Plan Monitoring plan: standard ASA. Post Procedure Analgesic Plan Postoperative analgesic plan: multimodal analgesia. Informed Consent Anesthetic risks, benefits, alternatives, personnel and consent discussed: yes. Patient / Responsible Republican agrees to proceed: yes Patient / Surrogate agrees to blood products: Yes Potential Anesthesia issues that may suggest increased risk of complications or contraindication to planned procedure: none. Discussed the possibility of lip / dental damage: yes No vitals data found for the desired time range. Facility-Administered Medications as of 05/30/2023 Medication Dose Route Frequency - [Held on Transfer] NaCl 0.9% iv flush bag 20 mL INTRAVENOUS PRN - [Held on Transfer] NaCl 0.9% iv infusion 100 mL/hr INTRAVENOUS CONTINUOUS - [Held on Transfer] aluminum-magnesium hydroxide-simethicone 200-200-20 mg/5 mL 30 mL 30 mL ORAL DAILY PRN - [Held on Transfer] ondansetron 4 mg tab(s) (ZOFRAN) 4 mg ORAL q 6 H PRN Or - [Held on Transfer] ondansetron (PF) 4 mg injection (ZOFRAN) 4 mg INTRAVENOUS q 6 H PRN - [Held on Transfer] melatonin 1 mg tab(s) 1 mg ORAL AT BEDTIME PRN - [Held on Transfer] ipratropium-albuterol 3 mL nebulizer solution (DUONEB) 3 mL INHALATION QID - [Held on Transfer] benzonatate 200 mg cap(s) (TESSALON PERLE) 200 mg ORAL TID PRN - [Held on Transfer] azithromycin 500 mg in D5W 250 mL Vial-Bag (ZITHROMAX) 500 mg INTRAVENOUS DAILY - [Held on Transfer] piperacillin-tazobacta m iv piggyback 3.375 g in dextrose (iso-osmotic) 50 mL (ZOSYN) 3.375 g INTRAVENOUS q 8 HR - [Held on Transfer] albuterol 2.5 mg /3 mL (0.083 %) 2.5 mg (PROVENTIL) 2.5 mg INHALATION q 4 H PRN - [Held on Transfer] morphine 4 mg injection 4 mg INTRAVENOUS q 4 H PRN - [Held on Transfer] acetaminophen 650 mg tab(s) (TYLENOL) 650 mg ORAL q 6 H PRN - [Held on Transfer] oxyCODONE IR 5 mg tab(s) (ROXICODONE) 5 mg ORAL q 6 H PRN Outpatient Medications as of 05/30/2023 Medication Sig - fluticasone (FLONASE) 50 mcg/actuation nasal spray Use 2 Sprays in each nostril once daily. Rinse mouth after use. (Patient taking differently: Use 2 Sprays in each nostril once daily. Rinse mouth after use. - use in spring) - pravastatin (PRAVACHOL) 40 mg tablet Take 1 tablet by mouth daily at bedtime. - gabapentin (NEURONTIN) 300 mg capsule Take 1 capsule by mouth twice daily. (Patient taking differently: Take 300 mg by mouth once daily.) - lisinopril (ZESTRIL) 5 mg tablet Take 1 tablet by mouth once daily. - tamsulosin (FLOMAX) 0.4 mg Take 1 capsule by mouth daily at bedtime. - multivitamin tablet Take 1 tablet by mouth once daily. - Alpha Lipoic Acid 600 mg cap Take 600 mg by mouth once daily. - metoprolol tartrate, short acting, 50 mg tablet Take 1 tablet by mouth twice daily. - Aspirin 81 mg tab Take 1 tablet by mouth once daily. Take with food. - omeprazole (PRILOSEC) 20 mg capsule Take 1 capsule by mouth daily before breakfast. 1/2 hr before meal. (Patient taking differently: Take 20 mg by mouth as needed. 1/2 hr before meal.) - sildenafil (REVATIO) 20 mg tablet Take 2-3 tablets by mouth on (more content not included)... Normal [facility] Bilirub Conj SerPl-mCncon Bilirubin.conjugated [Mass/Vol] 0.9 mg/dL High 0.0-0.4 [facility] Comment on above: Order Comment: Speci men Type: BLOOD SPECIMEN Ordering Facility: [facility] Address: [address] [place] [address] Performed By: #### 1 5152-2, 38817-8 #### [facility] CLIA [id number] [address] [place] [address] OF [place] CBC panel Auto (Bld)on 05-29 Erythrocyte distribution width (RBC) [Ratio] 13.2 % Normal 11.5-15.0 [facility] Comment on above: Order Comment: Speci men Type: BLOOD SPECIMEN Ordering Facility: [facility] Address: [address] [place] [address] Performed By: #### 5 8410-2 #### [facility] CLIA [id number] [address] [place] [address] [place] Hematocrit (Bld) [Volume fraction] 37.1 % Low 39.0-51.0 [facility] Comment on above: Order Comment: Speci men Type: BLOOD SPECIMEN Ordering Facility: [facility] Address: [address] [place] [address] Performed By: #### 5 8410-2 #### [facility] CLIA [id number] [address] [place] [address] [place] Hemoglobin (Bld) [Mass/Vol] 12.8 g/dL Low 13.0-17.0 [facility] Comment on above: Order Comment: Speci men Type: BLOOD SPECIMEN Ordering Facility: [facility] Address: [address] [place] [address] Performed By: #### 5 8410-2 #### [facility] CLIA [id number] [address] [place] [address] [place] MCH (RBC) [Entitic mass] 32.2 pg Normal 26.0-34.0 [facility] Comment on above: Order Comment: Speci men Type: BLOOD SPECIMEN Ordering Facility: [facility] Address: [address] [place] [address] Performed By: #### 5 8410-2 #### [facility] CLIA [id number] [address] [place] [address] [place] MCHC (RBC) [Mass/Vol] 34.5 g/dL Normal 30.5-36.0 [facility] Comment on above: Order Comment: Speci men Type: BLOOD SPECIMEN Ordering Facility: [facility] Address: [address] [place] [address] Performed By: #### 5 8410-2 #### [facility] CLIA [id number] [address] [place] [address] [place] MCV (RBC) [Entitic vol] 93.2 fL Normal 80.0-100.0 [facility] Comment on above: Order Comment: Speci men Type: BLOOD SPECIMEN Ordering Facility: [facility] Address: [address] [place] [address] Performed By: #### 5 8410-2 #### [facility] CLIA [id number] [address] [place] [address] [place] Nucleated RBC (Bld) [#/Vol] 10*3/uL Normal <0.01 [facility] Comment on above: Order Comment: Speci men Type: BLOOD SPECIMEN Ordering Facility: [facility] Address: [address] [place] [address] Performed By: #### 5 8410-2 #### [facility] CLIA [id number] [address] [place] [address] [place] Platelet mean volume (Bld) [Entitic vol] 11.5 fL Normal 9.0-12.7 [facility] Comment on above: Order Comment: Speci men Type: BLOOD SPECIMEN Ordering Facility: [facility] Address: [address] [place] [address] Performed By: #### 5 8410-2 #### [facility] CLIA [id number] [address] [place] [address] [place] Platelets (Bld) [#/Vol] 130 10*3/uL Low 150-400 [facility] Comment on above: Order Comment: Speci men Type: BLOOD SPECIMEN Ordering Facility: [facility] Address: [address] [place] [address] Performed By: #### 5 8410-2 #### [facility] CLIA [id number] [address] [place] [address] [place] RBC (Bld) [#/Vol] 3.98 10*6/uL Low 4.20-6.00 [facility] Comment on above: Order Comment: Speci men Type: BLOOD SPECIMEN Ordering Facility: [facility] Address: [address] [place] [address] Performed By: #### 5 8410-2 #### [facility] CLIA [id number] [address] [place], [place] [address] [facility] [place] WBC (Bld) [#/Vol] 14.34 10*3/uL High 3.70-11.00 [facility] Comment on above: Order Comment: Speci men Type: BLOOD SPECIMEN Ordering Facility: [facility] Address: [address] [place], [place] [address] Performed By: #### 5 8410-2 #### [facility] CLIA [id number] [address] [place], [place] [address] [facility] CONSULTon 05-30-2023 CONSULT HNO ID: [id number] Author: JAUN LEBLANC MD Service: General Surgery Author Type: Physician Type: Consults Filed: 05/30/2023 14:29 Note Text: Emergency General Surgery - HANDP Examination / Consultation Note SERVICE DATE: 05/30/2023 SERVICE TIME: 09:26 REASON FOR CONSULT: Acute calculus cholecystitis transfer in from [facility] REQUESTING PHYSICIAN: Stephane Rosales MD PRIMARY CARE PHYSICIAN: Giovanni Persaud MD Subjective CHIEF COMPLAINT: Acute cholecystitis HPI: This is a 83 year old male who presents with GERD, hypertension, hyperlipidemia, trigeminal neuralgia, CAD, CKD, BPH. Patient was sent from [facility] for elevation in bilirubin and abdominal pain. States prior to arrival he had 4 days of mid to right lower quadrant abdominal discomfort, when asked about pain, patient states clearly it was not pain and just mild discomfort. Denies nausea vomiting. Eating did not make pain worse and he was able to do so during this episode. Is still having bowel movements and passing gas. He is also being treated for pneumonia. Surgery has been consulted for acute calculus cholecystitis. Leukocytosis 14.34 Human 2.5 T. bili 2.2 C bili 0.[address] Which we only have reading, not imaging Dilated gallbladder with pericholecystic edema without evidence of gallstones. Correlation with gallbladder ultrasound might be of value. Diverticulosis without evidence of acute diverticulitis. Hepatic steatosis this with heterogeneous inferior right lower lobe. Enlarged prostate. Correlation with PSA level recommended. US Which we only have reading, not imaging Mild pericholecystic fluid without evidence of gallstones or biliary dilation Last admit - none FUNCTIONAL STATUS: Independent PAST MEDICAL HISTORY Diagnosis Date ABNORMAL FINDINGS-LUNG FIELD 04/27/2006 Granulomas Allergic rhinitis, cause unspecified 04/05/2005 Seasonal, Spring CAD (coronary artery disease) 04/23/2012 Non STEMI, [facility] [facility] 2nd diagonal. 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 Unspecified cardiovascular disease mild CAD PAST [...] 04/24/2012 Transcath stent init vessel percut FAMILY HISTORY Problem Relation Age of Onset Cancer Mother ovarian cancer, age 101 None Father age 79 Arthritis Sister Essential Tremor Sister No Known Problems Sister Social History Tobacco Use Smoking status: Never Smokeless tobacco: Never Vaping Use Vaping Use: Never used Substance Use Topics Alcohol use: Yes Alcohol/week: 2.0 standard drinks of alcohol Types: 2 Cans of Beer (12oz) per week Drug use: No fluticasone (FLONASE) 50 mcg/actuation nasal spray, Use 2 Sprays in each nostril once daily. Rinse mouth after use. (Patient taking differently: Use 2 Sprays in each nostril once daily. Rinse mouth after use. - use in spring), Disp: 1 Each, Rfl: 5, 05/29/2023 pravastatin (PRAVACHOL) 40 mg tablet, Take 1 tablet by mouth daily at bedtime., Disp: 90 tablet, Rfl: 3, 05/29/2023 gabapentin (NEURONTIN) 300 mg capsule, Take 1 capsule by mouth twice daily. (Patient taking differently: Take 300 mg by mouth once daily.), Disp: 180 capsule, Rfl: 3, 05/29/2023 lisinopril (ZESTRIL) 5 mg tablet, Take 1 tablet by mouth once daily., Disp: 90 tablet, Rfl: 3, 05/29/2023 tamsulosin (FLOMAX) 0.4 mg, Take 1 capsule by mouth daily at bedtime., Disp: 90 capsule, Rfl: 3, 05/29/2023 multivitamin tablet, Take 1 tablet by mouth once daily., Disp: , Rfl: 0, 05/29/2023 Alpha Lipoic Acid 600 mg cap, Take 600 mg by mouth once daily., Disp: , Rfl: 0, 05/29/2023 metoprolol tartrate, short acting, 50 mg tablet, Take 1 tablet by mouth twice daily., Disp: 60 tablet, Rfl: 0, 05/29/2023 Aspirin 81 mg tab, Take 1 tablet by mouth once daily. Take with food., Disp: 30 tablet, Rfl: 11, 05/29/2023 omeprazole (PRILOSEC) 20 mg capsule, Take 1 capsule by mouth daily before breakfast. 1/2 hr before m (more content not included)... Normal [facility] Comprehensive metabolic 2000 panelon 05-30-2023 Albumin [Mass/Vol] 2.5 g/dL Low 3.2-5.0 [facility] Comment on above: Order Comment: Speci men Type: BLOOD SPECIMEN Ordering Facility: [facility] Address: [address] [place] [address] Performed By: #### 1 5152-2, 47326-5 #### [facility] CLIA [id number] [address] [place], [place] [address] [place] ALP [Catalytic activity/Vol] 99 U/L Normal 45-117 [facility] Comment on above: Order Comment: Speci men Type: BLOOD SPECIMEN Ordering Facility: [facility] Address: [address] [place] [address] Performed By: #### 1 5152-2, 91081-9 #### [facility] CLIA [id number] [address] [place] [address] [place] ALT [Catalytic activity/Vol] 22 U/L Normal 13-61 [facility] Comment on above: Order Comment: Speci men Type: BLOOD SPECIMEN Ordering Facility: [facility] Address: [address] [place] [address] Result Comment: Resu lts may be falsely depressed after the administration of Sulfasalazine and/or Sulfapyridine. Performed By: #### 1 5152-2, 53268-9 #### [facility] CLIA [id number] [address] [place] [address] [place] [address] [facility] Anion gap [Moles/Vol] 6 mmol/L Normal 5-16 [facility] Comment on above: Order Comment: Speci men Type: BLOOD SPECIMEN Ordering Facility: [facility] Address: [address] [place] [address] Performed By: #### 1 5152-2, 32156-9 #### [facility] CLIA [id number] [address] [place] [address] [place] AST [Catalytic activity/Vol] 33 U/L Normal 8-34 [facility] Comment on above: Order Comment: Speci men Type: BLOOD SPECIMEN Ordering Facility: [facility] Address: [address] [place] [address] Result Comment: Resu lts may be falsely depressed after the administration of Sulfasalazine and/or Sulfapyridine. Performed By: #### 1 5152-2, 58420-6 #### [facility] CLIA [id number] [address] [place], [place] [id number] [place] Bilirubin [Mass/Vol] 2.2 mg/dL High 0.2-1.0 [facility] Comment on above: Order Comment: Speci men Type: BLOOD SPECIMEN Ordering Facility: [facility] Address: [address] [place] [address] Performed By: #### 1 5152-2, 64392-1 #### [facility] CLIA [id number] [address] [place] [address] [place] Calcium [Mass/Vol] 8.8 mg/dL Normal 8.5-10.5 [facility] Comment on above: Order Comment: Speci men Type: BLOOD SPECIMEN Ordering Facility: [facility] Address: [address] [place] [address] Performed By: #### 1 5152-2, 72538-4 #### [facility] CLIA [id number] [address] [place] [address] [place] Chloride [Moles/Vol] 108 mmol/L High 98-107 [facility] Comment on above: Order Comment: Speci men Type: BLOOD SPECIMEN Ordering Facility: [facility] Address: [address] [place] [address] Performed By: #### 1 5152-2, #### [facility] CLIA [id number] [address] [place] [address] [place] CO2 [Moles/Vol] 28 mmol/L Normal 21-32 [facility] Comment on above: Order Comment: Speci men Type: BLOOD SPECIMEN Ordering Facility: [facility] Address: [address] [place] [address] Performed By: #### 1 5152-2, 19170-8 #### [facility] CLIA [id number] [address] [place] [address] [place] Creatinine [Mass/Vol] 1.43 mg/dL High 0.50-1.40 [facility] Comment on above: Order Comment: Speci men Type: BLOOD SPECIMEN Ordering Facility: [facility] Address: [address] [place] [address] Result Comment: Yary ents receiving either N-Acetylcysteine (NAC) or Metamizole prior to venipuncture, may have falsely depressed results. Performed By: #### 1 5152-2, 79340-9 #### [facility] CLIA [id number] [address] [place] [address] [place] Creatinine and Glomerular filtration rate.predicted panel (S/P/Bld) 48 mL/min/1.73m??? Low >=60 [facility] Comment on above: Order Comment: Speckim lui Type: BLOOD SPECIMEN Ordering Facility: [facility] Address: [address] [place] [address] Result Comment: Christina mated Glomerular Filtration Rate (eGFR) is calculated using the 2020 CKD-EPI creatinine equation. This equation utilizes serum creatinine, sex, and age as parameters. The creatinine assay has traceable calibration to isotope dilution-mass spectrometry. Refer to KDIGO guidelines for clinical interpretation. In patients with unstable renal function, e.g. those with acute kidney injury, the eGFR may not accurately reflect actual GFR. Performed By: #### 1 5152-2, 73099-4 #### [facility] CLIA [id number] [address] [place] [address] [place] Glucose [Mass/Vol] 112 mg/dL High 70-100 [facility] Comment on above: Order Comment: Anai lui Type: BLOOD SPECIMEN Ordering Facility: [facility] Address: [address] [place] [address] Result Comment: The [place] Diabetes Association (ADA) provides guidance for cutoff values for fasting glucose and random glucose. The ADA defines fasting as no caloric intake for at least 8 hours. Fasting plasma glucose results between 100 to 125 mg/dL indicate increased risk for diabetes (prediabetes). Fasting plasma glucose results greater than or equal to 126 mg/dL meet the criteria for diagnosis of diabetes. In the absence of unequivocal hyperglycemia, results should be confirmed by repeat testing. In a patient with classic symptoms of hyperglycemia or hyperglycemic crisis, random plasma glucose results greater than or equal to 200 mg/dL meet the criteria for diagnosis of diabetes. Reference: Standards of Medical Care in Diabetes 2016, [place] [employer]. Diabetes Care. 2016.39(Suppl 1). Results may be falsely elevated after the administration of Sulfapyridine. Results may be falsely depressed after the administration of Sulfasalazine. Performed By: #### 1 5152-2, 66390-4 #### [facility] CLIA [id number] [address] [place] [address] [place] Potassium [Moles/Vol] 4.4 mmol/L Normal 3.5-5.1 [facility] Comment on above: Order Comment: Speci men Type: BLOOD SPECIMEN Ordering Facility: [facility] Address: [address] [place] [address] Performed By: #### 1 5152-2, 86063-1 #### [facility] CLIA [id number] [address] [place] [address] [place] Protein [Mass/Vol] 5.4 g/dL Low 6.0-8.5 [facility] Comment on above: Order Comment: Speci men Type: BLOOD SPECIMEN Ordering Facility: [facility] Address: [address] [place] [address] Performed By: #### 1 5152-2, 64594-7 #### [facility] CLIA [id number] [address] [place] [address] [place] Sodium [Moles/Vol] 142 mmol/L Normal 136-145 [facility] Comment on above: Order Comment: Speci men Type: BLOOD SPECIMEN Ordering Facility: [facility] Address: [address] [place] [address] Performed By: #### 1 5152-2, 33098-2 #### [facility] CLIA [id number] [address] [place] [address] [place] Urea nitrogen [Mass/Vol] 28 mg/dL High 7-26 [facility] Comment on above: Order Comment: Speci men Type: BLOOD SPECIMEN Ordering Facility: [facility] Address: [address] [place] [address] Performed By: #### 1 5152-2, 65344-6 #### [facility] CLIA [id number] [address] [place] [address] [place] HISTORY PHYSICALon HISTORY PHYSICAL HNO ID: [id number] Author: AMARILYS GONZÁLES MD Service: Hospital Medicine Author Type: Nurse Practitioner Type: H&P Filed: 05/30/2023 06:56 Note Text: Attestation signed by Amarilys Gonzáles MD at 05/30/2023 6:56 AM (Updated) I have reviewed the documentation below obtained and documented by the Nurse Practitioner. I have personally performed a face to face assessment of the patient and I have discussed the case and management of the patient's care. Acute acalculous cholecystitis. Surgery consult. Npo. Pain control. Fluids. Antiemetics. Pneumonia. Sputum culture. Urine antigens. Continue abx. HISTORY AND PHYSICAL EXAMINATION PATIENT NAME: Henrik Ma SERVICE DATE: 05/30/2023 2:45 AM PRIMARY CARE PHYSICIAN: Giovanni Persaud MD CHIEF COMPLAINT: Right upper quad abdominal pain for the past 3 days after eating a meal. HPI: The patient is a 83 year old male past medical history hypertension, BPH, GERD, CAD, CAD, trigeminal neuralgia who presents to [place] ER with right upper quad abdominal pain for the past 3 days after eating a meal. During their ER evaluation his bilirubin is elevated but transaminases are normal. White blood cell count is 18,400. CT scan is showing right upper quad pericolic cystic fluid without any stones. Also showing a right lower lobe infiltrate concerning for possible pneumonia. Patient will require hospitalization for surgical consult and treatment of community-acquired right lower lobe pneumonia. Patient will currently be admitted to telemetry with general surgery consultation. He is continued on IV Zosyn and Zithromax and maintained on a NPO diet pending their evaluation. FUNCTIONAL STATE Independent and Lives with spouse or a significant other PAST MEDICAL HISTORY Diagnosis Date ABNORMAL FINDINGS-LUNG FIELD 04/27/2006 Granulomas Allergic rhinitis, cause unspecified 04/05/2005 Seasonal, Spring CAD (coronary artery disease) 04/23/2012 Non STEMI, Prom[employer] FOREST 2nd diagonal. 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 Unspecified cardiovascular disease mild CAD PAST [...] 04/24/2012 Transcath stent init vessel percut FAMILY HISTORY Problem Relation Age of Onset Cancer Mother ovarian cancer, age 101 None Father age 79 Arthritis Sister Essential Tremor Sister No Known Problems Sister Social History Tobacco Use Smoking status: Never Smokeless tobacco: Never Vaping Use Vaping Use: Never used Substance Use Topics Alcohol use: Yes Alcohol/week: 2.0 standard drinks of alcohol Types: 2 Cans of Beer (12oz) per week Drug use: No Review of Systems Constitutional: Negative for appetite change, chills, diaphoresis, fever and unexpected weight change. HENT: Negative for ear pain, rhinorrhea, sinus pressure, sore throat and trouble swallowing. Eyes: Negative for visual disturbance. Respiratory: Negative for cough, chest tightness, shortness of breath and dyspnea. Cardiovascular: Negative for chest pain, palpitations and leg swelling. Gastrointestinal: Positive for abdominal pain. Negative for abdominal distention, blood in stool, constipation, diarrhea, nausea and vomiting. Genitourinary: Negative for dysuria, frequency, hematuria and urgency. Musculoskeletal: Negative for arthralgias and myalgias. Skin: Negative for rash and wound. Neurological: Negative for dizziness, syncope, speech difficulty, weakness, numbness and headaches. Hematological: Does not bruise/bleed easily. There were no vitals filed for this visit. Physical Exam Constitutional: General: He is awake. Appearance: Normal appearance. HENT: Head: Normocephalic and atraumatic. Nose: Nose normal. Mouth/Throat: Mouth: Mucous membranes are moist. Pharynx: Oropharynx (more content not included)... Normal [facility] HEPATOBILIARY WO RXon CA HEPATOBILIARY WO RX * * *Final Report * * * DATE OF EXAM: May 30 2023 4:05PM [facility] 0022 - [place] HEPATOBILIARY WO RX / PROCEDURE REASON: Cholelithiasis * * * * Physician Interpretation * * * * HEPATOBILIARY SCAN CLINICAL HISTORY: Cholelithiasis. TECHNIQUE: 5 mCi Tc-99m Choletec was administered intravenously. This was followed by one hour of imaging. Anterior images were taken for about 90 and 120 minutes. COMPARISON: None. CORRELATION EXAMINATION: None. RESULT: There is prompt and homogeneous uptake by the liver, which appears grossly normal in size and shape. Gallbladder activity is not visualized. Proximal small bowel activity is noted by 18 minutes, indicating common bile duct patency. The radiotracer passes into the proximal small bowel loops without evidence of obstruction. Small amount of duodenal gastric biliary reflux is noted. - IMPRESSION: Nonvisualization of the gallbladder, suggesting acute cholecystitis in the appropriate clinical setting. COMMUNICATION: Request made for communication with the ordering provider or LIP associated with the ordering provider on 05/30/2023 4:07 PM via [employer] staff message or phone message by Imaging Services Navigator. Matcher Offbearer: SHIRA Transcribe Date/Time: May 30 2023 4:06P Dictated by : YONG PAUL MD This examination was interpreted and the report reviewed and electronically signed by: YONG PAUL MD on May 30 2023 4:08PM EST [id number] [facility] OPERATIVE NOon 05-30-2023 OPERATIVE NO HNO ID: [id number] Author: JAUN LEBLANC MD Service: General Surgery Author Type: Physician Type: Operative Report Filed: 05/30/2023 20:33 Note Text: OPERATIVE REPORT LOG ID: [id number] SURGERY/PROCEDURE DATE: 05/30/2023 INCISION/PROCEDURE START TIME: 7:00 PM INCISION CLOSE/PROCEDURE END TIME: 8:15 PM SURGEON(S)/PROCEDURALI ST(S) AND WOOD BUCKER(S): Surgeon(s) and Role: * Jaun Leblanc MD - Primary Cert Pharmacy Tech: Enrrique Eaton SA; Geena Ramirez SA SURGERY/PROCEDURE(S): Procedure(s) and Anesthesia Type: * LAPAROSCOPIC CHOLECYSTECTOMY - General ANESTHESIA: General INDICATIONS FOR SURGERY: 83year old male presented with right upper quadrant abdominal pain. They were found to have minimal pericholecystic fluid on CT and ultrasound. No gallstones. HIDA scan was positive acute cholecystitis. He was offered a laparoscopic cholecystectomy. Risks and benefits of the procedure including, but not exclusive to, bleeding, infection, possibility of postoperative biliary leak and biliary stricture were discussed with her and she elected to undergo the procedure. SURGERY/PROCEDURE DETAILS: Informed consent was obtained. The patient was brought to the operative room and placed on operating room table in supine position. After the induction of general anesthetic, a preop check was completed and appropriate antibiotics administered. The abdomen was prepped and draped in sterile fashion. An incision was made inferior to the umbilicus and dissection carried down the fascia. The fascia was grasped with Elena and 2 stay sutures were placed of 0 Vicryl. The fascia was then opened in the midline. The peritoneal cavity was then entered under direct visualization with 0 Viry trocar. We then connected CO2 insufflation to establish pneumoperitoneum. Under direct vision, we placed two 5 mm ports in right upper quadrant and one 5mm subxyphoid. The gallbladder was under dense omental adhesions which were taken down bluntly and with cautery. The gallbladder was noted to be gangrenous and distended. Laparoscopic decompression needle was used to draw bilious fluid from gallbladder. The gallbladder was then grasped with lateral port sites. Meticulous careful dissection with blunt instruments was used to identify the lateral edge of the gallbladder and this was carried toward the cyst duodenal ligament. Which this was then identified. The cystoduodenal ligament was opened. The cystic duct and artery were skeletonized. Critical view was obtained. We then placed 3 clips proximally and 1 clip distally on the cystic duct and then 1 clip was placed proximally and one distally in the cystic artery and both were divided sharply with scissors. The gallbladder was then taken off the gallbladder fossa with electrocautery. The posterior wall of the gallbladder was gangrenous and sloughing. The liver was cauterized for hemostasis. We then irrigated the right upper quadrant until the fluid was clear, there was some bile spillage from gallbladder. Surgicel powder was used in the cholecystectomy bed to help ensure hemostasis. An extra powder was suctioned from bed. The gallbladder then placed in an endobag and brought out through the umbilical port site. We then turned our attention to closure. Ports were removed. The abdomen was deflated. We closed the fascia at the umbilical trocar site with [id number] 0 Vicryl suture and closed the remainder of the skin incisions with a running 4-0 Monocryl stitch. At the end of the case, all sponge and needle counts were correct. The patient was awakened and transferred to PACU in stable condition. PRE-OP/PRE-PROCEDURE DIAGNOSIS: Acute cholecystitis POST-OP/POST-PROCEDURE DIAGNOSIS: Acute gangrenous cholecystitis Antibiotics: Current Anti-Infective Meds (From admission, onward) Start Stop Route Frequency Ordered 05/30/23 0900 [Held on Transfer] azithromycin 500 mg in D5W 250 mL Vial-Bag (ZITHROMAX) (Held on Transfer since Mon05/30/2023 at 1813.Hold Reason: Hold Unreviewed Transfer Orders) -- INTRAVENOUS DAILY 05/30/23 0245 05/30/23 0300 [Held on Transfer] piperacillin-tazobacta m iv piggyback 3.375 g in dextrose (iso-osmotic) 50 mL (ZOSYN) (Held on Transfer since Mon05/30/2023 at 1813.Hold Reason: Hold Unreviewed Transfer Orders) -- INTRAVENOUS EVERY 8 HOURS 05/30/23 0245 Specimens: ID Type Source Tests Collected by Time Destination A : Tissue GALLBLADDER SURGICAL PATHOLOGY Jaun Leblanc MD 05/30/2023 8:09 PM ESTIMATED BLOOD LOSS: 30 mls IMPLANTABLE DEVICES: NONE DRAINS: None COMPLICATIONS: None CLOSURE TECHNIQUE: Primary PARTICIPATION IN SURGERY/PROCEDURE: I/primary surgeon/proceduralist performed the procedure with assistance. SIGNATURE: Jaun Leblanc MD PATIENT NAME: Henrik Ma DATE: May 30, 2023 TIME: 8:29 PM PAGER/CONTACT #: Normal [facility] PT panel Coag (PPP)on 2023 INR Coag (PPP) [Relative time] 1.0 {INR} Normal 0.9-1.3 [facility] Comment on above: Order Comment: Speci men Type: BLOOD SPECIMEN Ordering Facility: [facility] Address: [address] [place] [address] Result Comment: Radha min K Antagonist (VKA) Therapeutic Range: INR 2 to 3 (Target INR of 2.5) Note: For patients treated with VKA drugs, such as warfarin, the [place] [employer] 2012 Guideline recommends a therapeutic INR range of 2 to 3 (target INR of 2.5). This recommendation includes high-risk patients with antiphospholipid syndrome with previous arterial or venous thromboembolism, current-generation mechanical or bioprosthetic aortic heart valve replacement. Note: Patients with mechanical aortic valve replacement and additional risk factors for thromboembolic events (atrial fibrillation, previous thromboembolism, LV dysfunction, hypercoagulable conditions) or an older generation mechanical AVR (i.e., ball in-Cage) or any mechanical MVR should have a INR therapeutic range of 2.5 to 3.5 (target INR of 3). Guidott GH, et al. Chest 2012, 141:7S-47S Theresa RA, et al. JACC 2017, 70: 252-289 Performed By: #### 3 4528-0, 28158-3 #### [facility] CLIA [id number] [address] [place] PT Coag (PPP) [Time] 11.3 s Normal 9.7-13.0 [facility] Comment on above: Order Comment: Speci men Type: BLOOD SPECIMEN Ordering Facility: [facility] Address: [address] [place] [address] Performed By: #### 3 4528-0, 60609-6 #### [facility] CLIA [id number] [address] [place] [address] SURGICAL PATHOLOGYon 024 CASE REPORT Normal [facility] Comment on above: Order Comment: Speci men Type: BLOOD SPECIMEN Ordering Facility: [facility] Address: [address] [place] [address] Result Comment: Surg ical Pathology Report Case: [id number] Authorizing Provider: Jaun Leblanc MD Collected: 05/30/2023 08:09 PM Ordering Location: [facility] Surgery Received: 05/31/2023 07:33 AM Pathologist: Jennifer Yeh MD Specimen: GALLBLADDER, Gallbladder Performed By: #### 3 4528-0, 61729-0 #### [facility] CLIA [id number] [address] [place] [address] CLINICAL HISTORY Normal [facility] Comment on above: Order Comment: Speci men Type: BLOOD SPECIMEN Ordering Facility: [facility] Address: [address] [place] [address] Result Comment: Pre- op diagnosis: Acute cholecystitis [K81.0] Performed By: #### 3 4528-0, 58347-8 #### [facility] CLIA [id number] [address] [place] [address] FINAL DIAGNOSIS Normal [facility] Comment on above: Order Comment: Speci men Type: BLOOD SPECIMEN Ordering Facility: [facility] Address: [address] [place] [address] Result Comment: A. G allbladder, laparoscopic cholecystectomy: - Acute suppurative, calculus cholecystitis with ulceration and foci of hemorrhage and necrosis. Performed By: #### 3 4528-0, 14303-8 #### [facility] CLIA [id number] [address] [place] [address] [facility] FINAL PERFORMING LAB [facility] Comment on above: Order Comment: Speci men Type: BLOOD SPECIMEN Ordering Facility: [facility] Address: [address] [place] [address] Result Comment: Diag nostic interpretation performed at [facility], [address] [place] [address] CLIA# [id number] Envelope Sealer Operator: Jennifer Yeh M.D. Performed By: #### 3 4528-0, 21992-9 #### [facility] CLIA [id number] [address] [place] [address] GROSS DESCRIPTION A. GALLBLADDER [facility] Comment on above: Order Comment: Speci men Type: BLOOD SPECIMEN Ordering Facility: [facility] Address: [address] [place] [address] Result Comment: Rece ived in formalin, labeled as gallbladder is a deflated gallbladder that measures 8.2 x 4.4 x 3.8 cm. No defects are grossly noted. The serosa and outer surface of the specimen is diffusely shaggy, green-prather to red-brown and roughened in appearance. Red-brown purulent material is present in the lumen. Multiple green-brown friable calculi (up to 0.6 cm in greatest dimension) are present, but do not obstruct the cystic duct. The mucosa is red-brown with multiple patchy green-prather denuded areas, and is roughened. The key are hemorrhagic and rigid and measure up to 1.0 cm in thickness. Rag Cutting Machine Feeder sections are submitted in cassette A1 CG May 31, 2023 8:22 AM [place] [address] CLIA#[id number] Performed By: #### 3 4528-0, 25881-4 #### [facility] CLIA [id number] [address] [place] [address] MICROSCOPIC DESCRIPTION One H AND E stai waqas slide is examined. [facility] Comment on above: Order Comment: Speci men Type: BLOOD SPECIMEN Ordering Facility: [facility] Address: [address] [place], [place] [address] Performed By: #### 3 4528-0, 59712-4 #### [facility] CLIA [id number] [address] [place], [place] [address] [place] Urine Cultureon 05-30-2023 U[facility] Below infection leve l. GPC Poss Enterococcus sp [place] Count <1000 Normal [facility] Comment on above: Performed By: #### M 100.2200 #### [facility] [address] [place], [place] [address], [address] aPTT PPPon 05-30-2023 aPTT Coag (PPP) [Time] 34.3 s High 23.0-32.4 [facility] Comment on above: Order Comment: Speci men Type: BLOOD SPECIMEN Ordering Facility: [facility] Address: [address] [place], [place] [address] Performed By: #### 3 4528-0, 40836-6 #### [facility] CLIA [id number] [address] [place], [place] [address] [place] Abdomen/Pelvis W IV Cont ONL Yon 05-29-2023 Abdomen/Pelvis W IV Cont ONLY [facility] Imaging Services [facility] [place] [address] [place] [address] Abdomen/Pelvis W IV Cont ONLY MR#: [id number] Acct: [id number] Name: HENRIK MA Rep #: [id number] : 1940 M 83 From: Reji Murphy PCP: Dr. Giovanni Persaud MD Status: REG ER Study: Abdomen/Pelvis W IV Cont ONLY Date of Exam: Exam# [id number] Ordering Dr: Best Orona [place] [id number] STUDY: CT ABDOMEN AND PELVIS WITH CONTRAST REASON FOR EXAM: Male, 83 years old. Leukocytosis, elevated bilirubin, abdominal pain RADIATION DOSAGE (If Supplied By Facility): CTDIvol = ( 20.63 ) mGy, DLP = ( 857.34 ) mGycm TECHNIQUE: IV 100mL Isovue-300 was administered. Transaxial images were obtained from the dome of the diaphragm to the symphysis pubis. Multiplanar coronal and sagittal images were reformatted. Individualized Dose Optimization Techniques Were Used For This CT. COMPARISON: No relevant prior comparison study available FINDINGS: The visualized portions of the lung bases demonstrate patchy right lower lobe infiltrate and atelectatic changes. Trace of right pleural effusion. Normal heart size. Coronary calcifications. Hepatic steatosis. Somewhat heterogeneous inferior aspect of the liver could represent focal fatty sparing. 1 cm low-density in the inferior right lobe difficult to characterize and may represent cyst. Distended gallbladder with pericholecystic stranding/edema. No definite gallstones on this examination. No evidence of biliary dilatation. Normal spleen. Normal pancreas. Normal bilateral adrenal glands. Bilateral extrarenal pelvis. Left parapelvic cystic structures likely representing parapelvic cysts. No definite hydronephrosis. Normal visualized stomach. Nonspecific fluid-filled small bowel loops without evidence of bowel obstruction. Fecal retention. Diverticulosis without evidence of acute diverticulitis. The appendix is visualized and appears normal. There is diffuse atherosclerotic calcification of the abdominal aorta, without a demonstrated aneurysm. No retroperitoneal adenopathy. Normal urinary bladder. Enlarged prostate with calcifications. Correlation with PSA level is recommended. Normal abdominal wall. Degenerative changes of the spine. CT/Abdomen/Pelvis W IV Cont ONLY IMPRESSION: 1. Right lower lobe infiltrate and atelectatic changes. Small right pleural effusion. 2. Dilated gallbladder with pericholecystic edema without evidence of gallstones. Correlation with gallbladder ultrasound might be of value. 3. Diverticulosis without evidence of acute diverticulitis. 4. Hepatic steatosis with heterogeneous inferior right lower lobe difficult to characterize at this time. 5. Enlarged prostate. Correlation with PSA level is recommended. Electronically Signed: Reji Greene MD at 13:48 EST , CC: Dr. Best Orona MD; Dr. iGovanni Persaud MD Matcher Offbearer: Signed Normal [facility] Absolute lymphocyte countOrd ered By: Best Orona on 05-29-2023 Lymphocytes Auto (Unsp spec) [#/Vol] 0.62 10*3/uL 0.83-4.51 [facility] Automated lymphocyte count a s percentage of total leukocytesOrdered By: Bestnelly Tayloro on 05-29-2023 Lymphocytes/100 WBC Auto (Unsp spec) 3.4 % 19-41 [facility] Basophil percentageOrdered B y: Bestnelly Tayloro on 05-29-2023 Basophil percentage 0-5 SEEN /hpf 0-5 [facility] Basophils/100 WBC (Bld) 0.3 % 0-1 [facility] Bilirubin [Mass/Vol] 2.60 mg/dL 0.20-1.00 [facility] Comment on above: For patients on eltr ombopag therapy, use of Dimension Seibert TBIL is not recommended. Chloride [Moles/Vol] 107 mmol/L 98-107 [facility] Eosinophils/100 WBC (Bld) 0.0 % 0-5 [facility] Glucose [Mass/Vol] 175 mg/dL 74-106 [facility] Comment on above: Fasting Glucose resu lt greater than or equal to 126 mg/dL suggests DIABETES MELLITUS per A.D.A. criteria. Hemoglobin (Bld) [Mass/Vol] 14.1 g/dL 13.0-16.5 [facility] Monocytes/100 WBC (Bld) 6.9 % 0-10 [facility] Neutrophils (Bld) [#/Vol] 16.3 10*3/uL 2.0-7.7 [facility] Neutrophils/100 WBC (Bld) 88.4 % 47-70 [facility] Potassium [Moles/Vol] 4.3 mmol/L 3.5-5.1 [facility] Protein [Mass/Vol] 6.5 g/dL 6.4-8.2 [facility] Sodium [Moles/Vol] 136 mmol/L 136-145 [facility] WBC (Bld) [#/Vol] 18.4 10*3/uL 4.4-11.0 [facility] Bilirubin Test strip Ql (U)O rdered By: Best Orona on 05-29-2023 Bilirubin Ql (U) Negative Negative [facility] CBC W/Diff, Automatedon Absolute Lymph 0.62 X10 3/uL Low 0.83-4.51 [facility] Comment on above: Performed By: #### L 100.0100, L500.4050 #### [facility] [address] [place], [address] Absolute Neut 16.3 X10 3/uL High 2.0-7.7 [facility] Comment on above: Performed By: #### L 100.0100, L500.4050 #### [facility] [address] [place], [address] Basophils/100 WBC (Bld) 0.3 % Normal 0-1 [facility] Comment on above: Performed By: #### L 100.0100, L500.4050 #### [facility] [address] [place], [address] Eosinophils/100 WBC (Bld) 0.0 % Normal 0-5 [facility] Comment on above: Performed By: #### L 100.0100, L500.4050 #### [facility] [address] [place], [address] Erythrocyte distribution width (RBC) [Ratio] 13.1 % Normal 11.6-14.6 [facility] Comment on above: Performed By: #### L 100.0100, L500.4050 #### [facility] [address] [place], [address] Hematocrit (Bld) [Volume fraction] 42.2 % Normal 40-54 [facility] Comment on above: Performed By: #### L 100.0100, L500.4050 #### [facility] [address] [place], [address] Hemoglobin (Bld) [Mass/Vol] 14.1 g/dL Normal 13.0-16.5 [facility] Comment on above: Performed By: #### L 100.0100, L500.4050 #### [facility] [address] [place], [address] IG% 1.000 High 0.0-0.9 [facility] Comment on above: Result Comment: IG% - Immature Granulocytes (promyelocytes, myelocytes and metamyelocytes) > 1% indicates that a LEFT SHIFT is Present. Performed By: #### L 100.0100, L500.4050 #### [facility] [address] [place], [address] Lymphocytes/100 WBC (Bld) 3.4 % Low 19-41 [facility] Comment on above: Performed By: #### L 100.0100, L500.4050 #### [facility] [address] [place], [address] MCH (RBC) [Entitic mass] 31.6 pg Normal 27.0-32.0 [facility] Comment on above: Performed By: #### L 100.0100, L500.4050 #### [facility] [address] [place], [address] MCHC (RBC) [Mass/Vol] 33.4 g/dL Normal 32-36 [facility] Comment on above: Performed By: #### L 100.0100, L500.4050 #### [facility] [address] [place], [address] MCV (RBC) [Entitic vol] 94.6 fL High 80-94 [facility] Comment on above: Performed By: #### L 100.0100, L500.4050 #### [facility] [address] [place], [address] Monocytes/100 WBC (Bld) 6.9 % Normal 0-10 [facility] Comment on above: Performed By: #### L 100.0100, L500.4050 #### [facility] [address] [place], [address] Neutrophils/100 WBC (Bld) 88.4 % High 47-70 [facility] Comment on above: Performed By: #### L 100.0100, L500.4050 #### [facility] [address] [place], [address] Nucleated RBC (Bld) [#/Vol] 0 10*3/uL Normal 0-5 [facility] Comment on above: Performed By: #### L 100.0100, L500.4050 #### [facility] [address] [place], [address] Platelet mean volume (Bld) [Entitic vol] 12.1 fL High 6.2-12.0 [facility] Comment on above: Performed By: #### L 100.0100, L500.4050 #### [facility] [address] [place], [address] Platelets (Bld) [#/Vol] 124 10*3/uL Low 150-450 [facility] Comment on above: Performed By: #### L 100.0100, L500.4050 #### [facility] [address] [place], [address] RBC (Bld) [#/Vol] 4.46 10*6/uL Low 4.6-6.2 [facility] Comment on above: Performed By: #### L 100.0100, L500.4050 #### [facility] [address] [place], [address] RDW SD 44.7 fl High 35.1-43.9 [facility] Comment on above: Performed By: #### L 100.0100, L500.4050 #### [facility] [address] [place], [address] WBC (Bld) [#/Vol] 18.4 10*3/uL High 4.4-11.0 [facility] Comment on above: Performed By: #### L 100.0100, L500.4050 #### [facility] [address] [place], [address] Comprehensive Metabolic Prof ilon 05-29-2023 Albumin [Mass/Vol] 2.7 g/dL Low 3.2-5.0 [facility] Comment on above: Performed By: #### L 100.0100, L500.4050 #### [facility] [address] [place], [address] Albumin/Globulin [Mass ratio] 0.7 {ratio} Low 0.9-2.4 [facility] Comment on above: Performed By: #### L 100.0100, L500.4050 #### [facility] [address] [place], [address] ALK P 84 U/L Normal 45-117 [facility] Comment on above: Performed By: #### L 100.0100, L500.4050 #### [facility] [address] [place], [address] ALT [Catalytic activity/Vol] 16 U/L Normal 16-61 [facility] Comment on above: Performed By: #### L 100.0100, L500.4050 #### [facility] [address] [place], [address] AST [Catalytic activity/Vol] 20 U/L Normal 15-37 [facility] Comment on above: Performed By: #### L 100.0100, L500.4050 #### [facility] [address] [place], [address] Bilirubin [Mass/Vol] 2.60 mg/dL High 0.20-1.00 [facility] Comment on above: Result Comment: For patients on eltrombopag therapy, use of Dimension Seibert TBIL is not recommended. Performed By: #### L 100.0100, L500.4050 #### [facility] [address] [place], [address] BUN/CRE 18.1 RATIO Normal 10-20 [facility] Comment on above: Performed By: #### L 100.0100, L500.4050 #### [facility] [address] [place], [address] CA,Total 9.5 mg/dL Normal 8.5-10.1 [facility] Comment on above: Performed By: #### L 100.0100, L500.4050 #### [facility] [address] [place], [address] Chloride [Moles/Vol] 107 mmol/L Normal 98-107 [facility] Comment on above: Performed By: #### L 100.0100, L500.4050 #### [facility] [address] [place], [address] CO2 [Moles/Vol] 25.0 mmol/L Normal 21.0-32.0 [facility] Comment on above: Performed By: #### L 100.0100, L500.4050 #### [facility] [address] [place], [address] Creatinine [Mass/Vol] 1.49 mg/dL High 0.70-1.30 [facility] Comment on above: Result Comment: The validity of the calculated GFR GFRAA in patients over 70 years has not been determined. Clinical correlation is essential. Performed By: #### L 100.0100, L500.4050 #### [facility] [address] [place], [address] ECRCL 39.78 ml/min Normal [facility] Comment on above: Performed By: #### L 100.0100, L500.4050 #### [facility] [address] [place], [address] EST GFR - AA 58 mL/min Low >60 [facility] Comment on above: Result Comment: Afri can [place] GFR Calc Performed By: #### L 100.0100, L500.4050 #### [facility] [address] [place], [address] GAP 4 Low 5-15 [facility] Comment on above: Performed By: #### L 100.0100, L500.4050 #### [facility] [address] [place], [address] GFR/1.73 sq M.predicted among non-blacks MDRD (S/P/Bld) [Vol rate/Area] 48 mL/min/{1.73_m2} Low >60 [facility] Comment on above: Result Comment: Non- GFR Calc Performed By: #### L 100.0100, L500.4050 #### [facility] [address] [place], [address] Globulin (S) [Mass/Vol] 3.8 g/dL Normal 2.2-4.2 [facility] Comment on above: Performed By: #### L 100.0100, L500.4050 #### [facility] [address] [place], [address] Glucose [Mass/Vol] 175 mg/dL High 74-106 [facility] Comment on above: Result Comment: Fast ing Glucose result greater than or equal to 126 mg/dL suggests DIABETES MELLITUS per A.D.A. criteria. Performed By: #### L 100.0100, L500.4050 #### [facility] [address] [place], [address] Potassium [Moles/Vol] 4.3 mmol/L Normal 3.5-5.1 [facility] Comment on above: Performed By: #### L 100.0100, L500.4050 #### [facility] [address] [place], [address] Sodium [Moles/Vol] 136 mmol/L Normal 136-145 [facility] Comment on above: Performed By: #### L 100.0100, L500.4050 #### [facility] [address] [place], [address] T PROT 6.5 g/dL Normal 6.4-8.2 [facility] Comment on above: Performed By: #### L 100.0100, L500.4050 #### [facility] [address] [place], [address] Urea nitrogen [Mass/Vol] 27 mg/dL High 7-18 [facility] Comment on above: Performed By: #### L 100.0100, L500.4050 #### [facility] [address] [place], [address] Culture, urineOrdered By: Rossy Orona on 05-29-2023 Bacteria identified Cx Nom (U) GPC Poss Enterococcus sp [facility] Determination of erythrocyte mean corpuscular volume (MCV)Ordered By: Best Orona on 05-29-2023 MCV (RBC) [Entitic vol] 94.6 fL 80-94 [facility] Emergency Department Summary on 05-29-2023 Emergency Department Summary [facility] Medical Records Department [address] [place] [address] Emergency Department Summary 05/29/23 MR#: [id number] Acct: [id number] Name: HENRIK MA Rep #: [id number] : 1940 83 From: Best Orona MD PCP: Dr. Giovanni Persaud MD Status:REG ER Location: ED HPI HPI - GI History of Present Illness Chief Complaint: Abd Pain Detail of Chief Complaint: Right upper quadrant abdominal pain that has migrated to the right and left Informant: patient Abdominal Pain/Flank Pain Onset: Days (Onset May 25.) Context: Sudden Onset Timing: Continuous (Initially he reports it to be constant. He now is not having pain.) Quality: - (Discomfort) Location: RLQ and LLQ Current Severity: Gone Maximum Severity: Moderate Worsened by: Movement Relieved by: Nothing Nausea/Vomiting/Emesis GI Symptom: Positive for Nausea Diarrhea/Melena/Hemato chezia GI Symptom: Positive for - (Patient does report change in consistency and size of his stool over the past several weeks.); Negative for Diarrhea, Melena or Hematochezia Associated Symptoms Associated Symptoms: Positive for - (Patient denies any pain in his groin or inguinal area. He denies history of hernia.); Negative for Dysuria, Frequency, Hematuria or Urgency Narrative Narrative: Patient is an 83-year-old male. He presents with initially pain that was in the right upper quadrant right costal margin region that migrated to the right and left lower quadrant. He initially was in chair sitting next of his . At that time he had no discomfort. He denied radiation. He denied urologic symptoms. He denied fever, chills night sweats. He does report change in consistency and size of his stool recently. He denies night sweats or weight loss. Pain did start after he had a peanut butter jelly sandwich made by smokers and a peanut butter granola bar. He denies chest discomfort, shortness of breath, dyspnea on exertion. He denies orthopnea or PND. Patient's had no abdominal surgery. There is no history of renal or ureteral lithiasis. Patient has not noted a rash. Movement of apparently precipitates it today. Of note patient is not a good informant. Prior similar symptoms: Yes (A while ago. States it was not as bad.) Recent Illness/Hospitalizatio n: No [facility] Medical History Atherosclerosis of coronary artery of [place] heart without angina pectoris Essential (primary) hypertension History of non-ST elevation myocardial infarction (NSTEMI) (04/24/12) HLD (hyperlipidemia) Home Medications aspirin 81 mg tablet,delayed release 81 mg PO DAILY 05/18/16 [History Last Taken Unknown] hydrochlorothiazide 12.5 mg capsule 12.5 mg PO DAILY 05/18/16 [History Last Taken Unknown] lisinopril 5 mg tablet 5 mg PO DAILY 05/18/16 [History Last Taken Unknown] omeprazole magnesium 20 mg tablet,delayed release 20 mg PO DAILY 05/18/16 [History Last Taken Unknown] fexofenadine 180 mg tablet (Allergy Relief (fexofenadine)) 180 mg PO DAILY 11/16/17 [History Last Taken Unknown] gabapentin 300 mg capsule 300 mg PO DAILY 11/16/17 [History Last Taken Unknown] tamsulosin 0.4 mg capsule 0.4 mg PO DAILY #90 caps 11/20/18 [History Last Taken Unknown] alpha lipoic acid 50 mg capsule 50 mg PO DAILY 11/21/19 [History Last Taken Unknown] glucosamine sulfate 500 mg tablet (Glucosamine) 1,000 mg PO DAILY 11/21/19 [History Last Taken Unknown] multivitamin 1 tab PO DAILY 11/21/19 [History Last Taken Unknown] sildenafil (pulm.hypertension) 20 mg tablet 20 mg PO DAILY PRN 11/21/19 [History Last Taken Unknown] antiarthritic combination no.2 900 mg tablet (glucosamine-chondroit in) 900 mg PO DAILY 12/31/20 [History Last Taken Unknown] nitroglycerin 0.4 mg sublingual tablet 0.4 mg sublingual Q5-15M #25 tabs 10/26/21 [Rx Last Taken Unknown] fluticasone propionate 50 mcg/actuation nasal spray,suspension 2 spray intranasal DAILY PRN 12/30/21 [History Last Taken Unknown] omeprazole 20 mg capsule,delayed release 20 mg PO DAILY 12/30/21 [History Last Taken Unknown] clopidogrel 75 mg tablet See Rx Instructions .Route .COMPLEX #90 tabs 02/21/22 [Rx Last Taken Unknown] metoprolol tartrate 50 mg tablet 50 mg PO BID #180 tabs 04/28/22 [Rx Last Taken Unknown] pravastatin 40 mg tablet 40 mg PO DAILY #90 tabs 02/13/23 [Rx Last Taken Unknown] Allergy/AdvReac Type Severity Reaction Status Date / Time cat dander Allergy Anaphylaxis Verified 05/29/23 08:36 tree and shrub pollen Allergy Shortness Verified 05/29/23 08:36 of breath Family History Sister Diabetes Surgical History History of coronary artery stent placement (04/24/12) Social History (Updated 05/29/23 @ 09:[address] Best Orona MD) household members: spou (more content not included)... Normal [facility] Erythrocyte distribution wid th ratioOrdered By: Best Orona on 05-29-2023 Erythrocyte distribution width (RBC) [Ratio] 13.1 % 11.6-14.6 [facility] Erythrocyte distribution wid th standard deviationOrdered By: Bestnelly Orona on 05-29-2023 Erythrocyte distribution width (RBC) [Entitic vol] 44.7 fL 35.1-43.9 [facility] Gallbladderon 05-29-2023 Gallbladder [facility] Imaging Services [address] [place] [address] Gallbladder MR#: [id number] Acct: [id number] Name: HENRIK MA Rep #: [id number] : 1940 M 83 From: Reji Murphy PCP: Dr. Giovanni Persaud MD Status: [employer] Study: Gallbladder Date of Exam: 05/29/23 Exam# [id number] Ordering Dr: Best Orona MD [id number] INDICATION: Pain, leukocytosis, elevated bilirubin EXAMINATION: Ultrasound US Abdomen Limited (quadrant) TECHNIQUE: Giles scale and color doppler imaging was performed of the right upper quadrant. COMPARISON: No relevant prior comparison study available FINDINGS: LIVER: There is moderate increased echogenicity. The liver measures about 16.4 cm in length. The portal vein is patent with normal hepatopedal flow. No focal hepatic lesion. The left lobe of the liver is obscured by bowel gas. There is no free fluid. GALLBLADDER AND BILIARY TREE: No shadowing gallstone, pericholecystic fluid or gallbladder wall thickening is demonstrated. The gallbladder wall measures 2.6 mm. Mild pericholecystic fluid. The proximal common bile duct measures 5 mm, which is within normal limits for the patient''s age. Sonographic Ayala''s sign: Negative. PANCREAS: The pancreas is somewhat obscured by bowel gas and not well visualized. RIGHT KIDNEY: The right kidney measures 10.1 cm in length. The renal cortex measures 6 mm. No evidence of hydronephrosis. US/Gallbladder IMPRESSION: 1. Mild pericholecystic fluid without evidence of gallstones or biliary dilatation. 2. Hepatic steatosis. Electronically Signed: Reji Greene MD at 11:55 EST , CC: Dr. Best Orona MD; Dr. Giovanni Persaud MD Matcher Offbearer: Signed Normal [facility] Hematocrit Auto (Bld) [Volum e fraction]Ordered By: Best Orona on 05-29-2023 Hematocrit (Bld) [Volume fraction] 42.2 % 40-54 [facility] Immature granulocytes/100 WB C Auto (Bld)Ordered By: Bestnelly Orona on 05-29-2023 Immature granulocytes/100 WBC (Bld) 1.000 % 0.0-0.9 [facility] Comment on above: IG% - Immature Granu locytes (promyelocytes, myelocytes and metamyelocytes) > 1% indicates that a LEFT SHIFT is Present. Ketones Test strip Ql (U)Ord ered By: Best Orona on 05-29-2023 Ketones Ql (U) Negative Negative [facility] - Chemistry and C hemistry - challengeOrdered By: Bestnelly Orona on 05-29-2023 Albumin/Globulin [Mass ratio] 0.7 {ratio} 0.9-2.4 [facility] ALP [Catalytic activity/Vol] 84 U/L 45-117 [facility] ALT [Catalytic activity/Vol] 16 U/L 16-61 [facility] CO2 [Moles/Vol] 25.0 mmol/L 21.0-32.0 [facility] Globulin (S) [Mass/Vol] 3.8 g/dL 2.2-4.2 [facility] Urea nitrogen/Creatinine [Mass ratio] 18.1 mg/mg 10-20 [facility] - Hematology and Cell countsOrdered By: Best Orona on 05-29-2023 MCH (RBC) [Entitic mass] 31.6 pg 27.0-32.0 [facility] MCHC (RBC) [Mass/Vol] 33.4 g/dL 32-36 [facility] Nucleated RBC/100 WBC (Bld) [Ratio] 0 % 0-5 [facility] Platelet mean volume (Bld) [Entitic vol] 12.1 fL 6.2-12.0 [facility] Platelets (Bld) [#/Vol] 124 10*3/uL 150-450 [facility] Mucus LM Ql (Urine sed)Order ed By: Best Orona on 05-29-2023 Mucus Ql (Urine sed) 0 SEEN /hpf [facility] Nitrite Test strip Ql (U)Ord ered By: Best Orona on 05-29-2023 Nitrite Ql (U) Negative Negative [facility] No Panel InformationOrdered By: Best Orona on 05-29-2023 Urine RBC 0-5 SEEN /hpf 0-5 [facility] Estimated Creatinine Clearance Calc 39.78 ml/min [facility] Estimated GFR (MDRD) Amer 58 mL/min >60 [facility] Comment on above: GFR Calc Estimated GFR (MDRD) Non-Af Amer 48 mL/min >60 [facility] Comment on above: Non- GFR Calc Protein Test strip Ql (U)Ord ered By: Best Orona on 05-29-2023 Protein Ql (U) 30 mg/dl Negative [facility] RBC Auto (Bld) [#/Vol]Ordere d By: Best Orona on 05-29-2023 RBC (Bld) [#/Vol] 4.46 10*6/uL [facility] [facility] Serum or plasma calcium dian urement (mass/volume)Ordered By: Best Orona on 05-29-2023 Calcium [Mass/Vol] 9.5 mg/dL 8.5-10.1 [facility] Serum or plasma creatinine m easurement (mass/volume)Ordered By: Best Orona on 05-29-2023 Creatinine [Mass/Vol] 1.49 mg/dL 0.70-1.30 [facility] Comment on above: The validity of the calculated GFR & GFRAA in patients over 70 years has not been determined. Clinical correlation is essential. Serum or plasma urea nitroge n measurement (mass/volume)Ordered By: Best Orona on 05-29-2023 Urea nitrogen [Mass/Vol] 27 mg/dL 7-18 [facility] Squamous epithelial cells de tection in urine sediment by light microscopyOrdered By: Best Orona on 05-29-2023 Epithelial cells.squamous LM Ql (Urine sed) 0-5 SEEN /hpf 0-5 [facility] Thin prep Papanicolaou smear with manual screeningOrdered By: Best Orona on 05-29-2023 Thin prep Papanicolaou smear with manual screening 2.7 g/dL 3.2-5.0 [facility] Thin prep Papanicolaou smear with manual screening 20 U/L 15-37 [facility] Thin prep Papanicolaou smear with manual screening 4 5-15 [facility] Urinalysis, Completeon 05-28 BACTERIA 1+ /hpf Normal None Seen [facility] Comment on above: Order Comment: CLEAN CATCH Performed By: #### L 400.0001 #### [facility] [address] [place], [place], [id number] ([phone]) EPI,SQUAMOUS 0-5 SEEN Normal 0-5 [facility] Comment on above: Order Comment: CLEAN CATCH Performed By: #### L 400.0001 #### [facility] [address] [place], [address] RBC 0-5 SEEN Normal 0-5 [facility] Comment on above: Order Comment: CLEAN CATCH Performed By: #### L 400.0001 #### [facility] [address] [place], [address] WBC 0-5 SEEN Normal 0-5 [facility] Comment on above: Order Comment: CLEAN CATCH Performed By: #### L 400.0001 #### [facility] [address] [place], [place], [id number] Mucus Ql (Urine sed) 0 SEEN Normal [facility] Comment on above: Order Comment: CLEAN CATCH Performed By: #### L 400.0001 #### [facility] [address] [place], [place], [id number] Urine blood detectionOrdered By: Best Orona on 05-29-2023 RBC Ql (U) 50 /ul Negative [facility] Urine clarityOrdered By: Bestnelly Orona on 05-29-2023 Clarity (U) Sl. Cloudy Clear [facility] Urine color determinationOrd ered By: Best Orona on 05-29-2023 Color (U) Yellow Yellow [facility] Urine glucose detectionOrder ed By: Best Orona on 05-29-2023 Glucose Ql (U) Normal mg/dl Normal [facility] Urine leukocyte esterase det ection by dipstickOrdered By: Bestnelly Orona on 05-29-2023 Leukocyte esterase Test strip Ql (U) 25 /ul Negative [facility] Urine pHOrdered By: Bestnelly villegas on 05-29-2023 pH (U) 5.0 [pH] 5.0 - 8.0 [facility] Urine sediment bacteria coun t by microscopy (number/high power field)Ordered By: Bestnelly Orona on 05-29-2023 Bacteria LM.HPF (Urine sed) [#/Area] 1 /[HPF] None Seen [facility] Urine specific gravity measu rementOrdered By: Bestnelly Orona on 05-29-2023 Specific gravity (U) [Rel density] 1.020 1.002-1.030 [facility] Urine urobilinogen measureme ntOrdered By: Bestnelly Orona on 05-29-2023 Urobilinogen Ql (U) Normal mg/dl Normal [facility] Absolute lymphocyte countOrd ered By: Dr. Jackson on 08-08-2022 Lymphocytes Auto (Unsp spec) [#/Vol] 1.58 10*3/uL 0.83-4.51 [facility] Basophil percentageOrdered B y: Dr. Jackson on 08-08-2022 Basophils/100 WBC (Bld) 0.6 % 0-1 [facility] Eosinophils/100 WBC (Bld) 1.7 % 0-5 [facility] Neutrophils (Bld) [#/Vol] 9.5 10*3/uL 2.0-7.7 [facility] Neutrophils/100 WBC (Bld) 79.5 % 47-70 [facility] WBC (Bld) [#/Vol] 12.0 10*3/uL 4.4-11.0 [facility] Blood erythrocytes count (nu mber/volume)Ordered By: Dr. Jackson on 08-08-2022 RBC (Bld) [#/Vol] 4.69 10*6/uL 4.6-6.2 [facility] Blood hemoglobin measurement (mass/volume)Ordered By: Dr. Jackson on 08-08-2022 Hemoglobin (Bld) [Mass/Vol] 15.2 g/dL 13.0-16.5 [facility] Blood lymphocytes/100 leukoc ytesOrdered By: Dr. Jackson on 08-08-2022 Lymphocytes/100 WBC (Bld) 13.2 % 19-41 [facility] Blood monocytes/100 leukocyt esOrdered By: Dr. Jackson on 08-08-2022 Monocytes/100 WBC (Bld) 4.8 % 0-10 [facility] Blood platelet mean volumeOr dered By: Dr. Jackson on 08-08-2022 Platelet mean volume (Bld) [Entitic vol] 12.0 fL 6.2-12.0 [facility] Determination of erythrocyte mean corpuscular volume (MCV)Ordered By: Dr. Jackson on 08-08-2022 MCV (RBC) [Entitic vol] 94.0 fL 80-94 [facility] Hematocrit Auto (Bld) [Volum e fraction]Ordered By: Dr. Jackson on 08-08-2022 Hematocrit (Bld) [Volume fraction] 44.1 % 40-54 [facility] Laboratory - Hematology and Cell countsOrdered By: Dr. Jackson on 08-08-2022 Erythrocyte distribution width (RBC) [Entitic vol] 42.5 fL 35.1-43.9 [facility] Erythrocyte distribution width (RBC) [Ratio] 12.4 % 11.6-14.6 [facility] Immature granulocytes/100 WBC (Bld) 0.200 % 0.0-0.9 [facility] Comment on above: IG% - Immature Granu locytes (promyelocytes, myelocytes and metamyelocytes) > 1% indicates that a LEFT SHIFT is Present. MCH (RBC) [Entitic mass] 32.4 pg 27.0-32.0 [facility] Nucleated RBC/100 WBC (Bld) [Ratio] 0 % 0-5 [facility] MCHC Auto (RBC) [Mass/Vol]Or dered By: Dr. Jackson on 08-08-2022 MCHC (RBC) [Mass/Vol] 34.5 g/dL 32-36 [facility] Platelets bldOrdered By: Dr. Jackson on 08-08-2022 Platelets (Bld) [#/Vol] 166 10*3/uL 150-450 [facility] Basophil percentageOrdered B y: Dr. Meyer on 07-20-2022 Bilirubin [Mass/Vol] 1.20 mg/dL 0.20-1.00 [facility] Comment on above: For patients on eltr ombopag therapy, use of Dimension Seibert TBIL is not recommended. Cholesterol [Mass/Vol] 132 mg/dL <200 [facility] Comment on above: <200 mg/dL Desirable 200-240 mg/dL Borderline >240 mg/dL High Risk Protein [Mass/Vol] 6.7 g/dL 6.4-8.2 [facility] Triglyceride [Mass/Vol] 126 mg/dL <199 [facility] Comment on above: The drugs N-Acetylcy steine and Metamizole may falsely depress this assay.Serum Triglycerides Reference Interval Normal <150 mg/dL Borderline high 150 - 199 mg/dL High 200 - 499 mg/dL Very High > or = 500 mg/dL Direct bilirubinOrdered By: Dr. Meyer on 07-20-2022 Bilirubin.direct [Mass/Vol] 0.30 mg/dL 0.00-0.30 [facility] Laboratory - Chemistry and C hemistry - challengeOrdered By: Dr. Meyer on 07-20-2022 ALP [Catalytic activity/Vol] 66 U/L 45-117 [facility] ALT [Catalytic activity/Vol] 20 U/L 16-61 [facility] Globulin (S) [Mass/Vol] 3.3 g/dL 2.2-4.2 [facility] Serum or plasma albumin dian urement (mass/volume)Ordered By: Dr. Meyer on 07-20-2022 Albumin [Mass/Vol] 3.4 g/dL 3.2-5.0 [facility] Serum or plasma cholesterol in HDL measurement (mass/volume)Ordered By: Dr. Meyer on 07-20-2022 Cholesterol in HDL [Mass/Vol] 46 mg/dL >40 [facility] Comment on above: The drugs N-Acetylcy steine and Metamizole may falsely depress this assay. Reference Range HDL <40 mg/dL Low HDL Cholesterol HDL >or= 60 mg/dL High HDL Cholesterol Serum or plasma cholesterol in VLDL measurement (mass/volume)Ordered By: Dr. Meyer on 07-20-2022 Cholesterol in VLDL [Mass/Vol] 25 mg/dL 5-40 [facility] Serum or plasma low density lipoprotein (LDL) cholesterol measurement (mass/volume)Ordered By: Dr. Meyer on 07-20-2022 Cholesterol in LDL [Mass/Vol] 61 mg/dL 0-130 [facility] Thin prep Papanicolaou smear with manual screeningOrdered By: Dr. Meyer on 07-20-2022 Thin prep Papanicolaou smear with manual screening 21 U/L 15-37 [facility] US KIDNEY/BLADDERon 07-01-19 23 [facility] Basophil percentageon 2021 Bilirubin [Mass/Vol] 1.30 mg/dL 0.20-1.00 [facility] Work Phone: Comment on above: For patients on eltr ombopag therapy, use of Dimension Seibert TBIL is not recommended. Cholesterol [Mass/Vol] 144 mg/dL <200 [facility] Work Phone: Comment on above: <200 mg/dL Desirable 200-240 mg/dL Borderline >240 mg/dL High Risk Protein [Mass/Vol] 6.9 g/dL 6.4-8.2 [facility] Work Phone: Triglyceride [Mass/Vol] 164 mg/dL <199 [facility] Work Phone: Comment on above: The drugs N-Acetylcy steine and Metamizole may falsely depress this assay.Serum Triglycerides Reference Interval Normal <150 mg/dL Borderline high 150 - 199 mg/dL High 200 - 499 mg/dL Very High > or = 500 mg/dL Direct bilirubinon Bilirubin.direct [Mass/Vol] 0.29 mg/dL 0.00-0.30 [facility] Work Phone: Laboratory - Chemistry and C hemistry - challengeon 12-23-2021 ALP [Catalytic activity/Vol] 63 U/L 45-117 [facility] Work Phone: ALT [Catalytic activity/Vol] 20 U/L 16-61 [facility] Work Phone: Globulin (S) [Mass/Vol] 3.5 g/dL 2.2-4.2 [facility] Work Phone: Serum or plasma albumin dian urement (mass/volume)on 12-23-2021 Albumin [Mass/Vol] 3.4 g/dL 3.2-5.0 [facility] Work Phone: Serum or plasma cholesterol in HDL measurement (mass/volume)on 12-23-2021 Cholesterol in HDL [Mass/Vol] 49 mg/dL >40 [facility] Work Phone: Comment on above: The drugs N-Acetylcy steine and Metamizole may falsely depress this assay. Reference Range HDL <40 mg/dL Low HDL Cholesterol HDL >or= 60 mg/dL High HDL Cholesterol Serum or plasma cholesterol in VLDL measurement (mass/volume)on 12-23-2021 Cholesterol in VLDL [Mass/Vol] 33 mg/dL 5-40 [facility] Work Phone: Serum or plasma low density lipoprotein (LDL) cholesterol measurement (mass/volume)on 12-23-2021 Cholesterol in LDL [Mass/Vol] 62 mg/dL 0-130 [facility] Work Phone: Thin prep Papanicolaou smear with manual screeningon 12-23-2021 Thin prep Papanicolaou smear with manual screening 19 U/L 15-37 [facility] Work Phone: Basophil percentageon 2021 Bilirubin [Mass/Vol] 1.50 mg/dL 0.20-1.00 [facility] Work Phone: Comment on above: For patients on eltr ombopag therapy, use of Dimension Seibert TBIL is not recommended. Cholesterol [Mass/Vol] 151 mg/dL <200 [facility] Work Phone: Comment on above: <200 mg/dL Desirable 200-240 mg/dL Borderline >240 mg/dL High Risk Protein [Mass/Vol] 7.2 g/dL 6.4-8.2 [facility] Work Phone: Triglyceride [Mass/Vol] 156 mg/dL [facility] Work Phone: Comment on above: The drugs N-Acetylcy steine and Metamizole may falsely depress this assay.Serum Triglycerides Reference Interval Normal <150 mg/dL Borderline high 150 - 199 mg/dL High 200 - 499 mg/dL Very High > or = 500 mg/dL Direct bilirubinon 2 Bilirubin.direct [Mass/Vol] 0.31 mg/dL 0.00-0.30 [facility] Work Phone: Laboratory - Chemistry and C hemistry - challengeon 07-01-2021 ALP [Catalytic activity/Vol] 68 U/L 45-117 [facility] Work Phone: ALT [Catalytic activity/Vol] 20 U/L 16-61 [facility] Work Phone: Globulin (S) [Mass/Vol] 3.6 g/dL 2.2-4.2 [facility] Work Phone: Serum or plasma albumin dian urement (mass/volume)on 07-01-2021 Albumin [Mass/Vol] 3.6 g/dL 3.2-5.0 [facility] Work Phone: Serum or plasma cholesterol in HDL measurement (mass/volume)on 07-01-2021 Cholesterol in HDL [Mass/Vol] 48 mg/dL [facility] Work Phone: Comment on above: The drugs N-Acetylcy steine and Metamizole may falsely depress this assay. Reference Range HDL <40 mg/dL Low HDL Cholesterol HDL >or= 60 mg/dL High HDL Cholesterol Serum or plasma cholesterol in VLDL measurement (mass/volume)on 07-01-2021 Cholesterol in VLDL [Mass/Vol] 31 mg/dL 5-40 [facility] Work Phone: Serum or plasma low density lipoprotein (LDL) cholesterol measurement (mass/volume)on 07-01-2021 Cholesterol in LDL [Mass/Vol] 72 mg/dL 0-130 [facility] Work Phone: Thin prep Papanicolaou smear with manual screeningon 07-01-2021 Thin prep Papanicolaou smear with manual screening 23 U/L 15-37 [facility] Work Phone: Lab Report: Lipid Profileon 05-02-2017 Cholesterol 150 mg/dL Invalid Interpretation Code 200 [facility] Work Phone: [phone] HDL Cholesterol 48 mg/dL Invalid Interpretation Code [facility] Work Phone: [phone] LDL Cholesterol 66 mg/dL Invalid Interpretation Code 0-130 [facility] Work Phone: [phone] Triglyceride 180 mg/dL Invalid Interpretation Code [facility] Work Phone: [phone] very low density lipoproteins 36 mg/dL Invalid Interpretation Code 5-40 [facility] Work Phone: [phone] Lab Report: Liver Profileon 05-02-2017 Alanine aminotransferase (ALT) 21 U/L Invalid Interpretation Code 16-61 [facility] Work Phone: [phone] Albumin 3.5 g/dL Invalid Interpretation Code 3.2-5.0 [facility] Work Phone: [phone] Alkaline phosphatase (ALP) 74 U/L Invalid Interpretation Code 45-117 [facility] Work Phone: [phone] Aspartate aminotransferase (AST) 20 U/L Invalid Interpretation Code 15-37 [facility] Work Phone: [phone] Bilirubin (direct) 0.33 mg/dL High 0.00-0.30 [facility] Work Phone: [phone] Bilirubin (total) 1.80 mg/dL High 0.20-1.00 [facility] Work Phone: [phone] Globulin 3.5 g/dL Invalid Interpretation Code 2.2-4.2 [facility] Work Phone: [phone] Protein 7.0 g/dL Invalid Interpretation Code 6.4-8.2 [facility] Work Phone: [phone] Office Visiton 11-15-2016 Documentation of current medications (procedure) Done Invalid Interpretation Code [facility] Work Phone: [phone] Fall risk assessment No Invalid Interpretation Code [facility] Work Phone: [phone] Protein mass conc Done [facility] Work Phone: [phone] Lab Report: Lipid Profileon 11-02-2016 Cholesterol in HDL mass conc 52 mg/dL [facility] Work Phone: [phone] Cholesterol in LDL mass conc 62 mg/dL 0-130 [facility] Work Phone: [phone] Cholesterol mass conc 156 mg/dL [address] [facility] Work Phone: [phone] Lipoprotein.pre-beta mass conc 42 mg/dL High 5-40 [facility] Work Phone: [phone] Triglyceride mass conc 210 mg/dL High [facility] Work Phone: [phone] Lab Report: Liver Profileon 11-02-2016 Albumin mass conc 3.5 g/dL 3.4-5.0 [facility] Work Phone: [phone] Alkaline phosphatase (ALP) 70 U/L Invalid Interpretation Code 45-117 [facility] Work Phone: [phone] ALP enzyme act/vol (Bld) 70 U/L 45-117 [facility] Work Phone: [phone] ALT enzyme act/vol 21 U/L 12-78 [facility] Work Phone: [phone] AST enzyme act/vol 24 U/L 15-37 [facility] Work Phone: [phone] Bilirubin mass conc 1.70 mg/dL High 0.20-1.00 [facility] Work Phone: [phone] Bilirubin.direct mass conc 0.25 mg/dL 0.00-0.30 [facility] Work Phone: [phone] Globulin 3.5 g/dL Invalid Interpretation Code 2.3-3.5 [facility] Work Phone: [phone] Globulin mass conc (S) 3.5 g/dL 2.3-3.5 [facility] Work Phone: [phone] Protein mass conc 7.0 g/dL 6.4-8.2 [facility] Work Phone: [phone] Office Visiton 05-12-2016 Documentation of current medications (procedure) Done Invalid Interpretation Code [facility] Work Phone: [phone] Protein mass conc Done [facility] Work Phone: [phone] Chart Maintenanceon 11-12-19 16 Left ventricular Ejection fraction 60 % Invalid Interpretation Code [facility] Work Phone: [phone] Office Visiton 11-12-2015 Dietary management education, guidance, and counseling (procedure) yes Invalid Interpretation Code [facility] Work Phone: [phone] Tobacco smoking status OKIS Tobacco smoking status NHIS Invalid Interpretation Code [facility] Work Phone: [phone] Tobacco smoking status OKIS Never smoker [facility] Work Phone: [phone] Tobacco use [facility] Never smoker Invalid Interpretation Code [facility] Work Phone: [phone] Office Visiton 10-03-2014 cardiac risk group C Invalid Interpretation Code [facility] Work Phone: [phone] General cardiovascular disease 10Y risk [#] [place]Katherine[place]Artem N/A Invalid Interpretation Code [facility] Work Phone: [phone] Clinical Lists 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: 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 Anion gap 10 mmol/L Invalid Interpretation Code [facility] Work Phone: [phone] Anion gap molar conc 10 mmol/L [facility] Work Phone: [phone] Calcium mass conc 9.5 mg/dL Invalid Interpretation Code [facility] Work Phone: [phone] Chloride molar conc 102 mmol/L Invalid Interpretation Code [facility] Work Phone: [phone] CO2 28 mmol/L Invalid Interpretation Code [facility] Work Phone: [phone] CO2 ppres (BldV) 28 mmol/L [facility] Work Phone: [phone] Creatinine mass conc 1.24 mg/dL Invalid Interpretation Code [facility] Work Phone: [phone] Glucose 94 mg/dL Invalid Interpretation Code [facility] Work Phone: [phone] Glucose mass conc 94 mg/dL [facility] Work Phone: [phone] Potassium molar conc 4.5 mmol/L Invalid Interpretation Code [facility] Work Phone: [phone] Sodium molar conc 140 mmol/L Invalid Interpretation Code [facility] Work Phone: [phone] Urea nitrogen mass conc 22 mg/dL Invalid Interpretation Code [facility] Work Phone: [phone] External Other: Preferred Me thod of Contacton 08-22-2013 methcontact secmsg [facility] Work Phone: [phone] Patient's prefered method of contact secmsg Invalid Interpretation Code [facility] Work Phone: [phone] Lab Report: LIVER 07-31-19 14 ALK 60 U/L Normal 45-117 [facility] Work Phone: [phone] GE use only - for [employer] import when terms are not otherwise specified 60 U/L Normal 45-117 [facility] Work Phone: [phone] Replaced Document: Chyna Saueron 05-17-2012 EKG QRS axis 15 deg [facility] Work Phone: [phone] electrocardiogram interpretation Sinus Rhythm WITHIN NORMAL LIMITS Invalid Interpretation Code [facility] Work Phone: [phone] Interpretation Sinus Rhythm WITHIN NORMAL LIMITS [facility] Work Phone: [phone] P [place] 36 deg [facility] Work Phone: [phone] P wave axis, electrocardiogram 36 deg Invalid Interpretation Code [facility] Work Phone: [phone] MO Interval 134 ms [facility] Work Phone: [phone] MO interval, electrocardiogram 134 ms Invalid Interpretation Code [facility] Work Phone: [phone] Pulse (Heart Rate) 61 /min Invalid Interpretation Code [facility] Work Phone: [phone] QRS axis, electrocardiogram 15 deg Invalid Interpretation Code [facility] Work Phone: [phone] QRS Duration 92 ms [facility] Work Phone: [phone] QRS duration, electrocardiogram 92 ms Invalid Interpretation Code [facility] Work Phone: [phone] QT Interval new path ms [facility] Work Phone: [phone] QT interval, electrocardiogram new path ms Invalid Interpretation Code [facility] Work Phone: [phone] T [place] 38 deg [facility] Work Phone: [phone] T wave axis, electrocardiogram 38 deg Invalid Interpretation Code [facility] Work Phone: [phone] Clinical Lists Update: 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 04-25-2012 Cholesterol.total/Sirena sterol in HDL mass ratio 3 {ratio} Invalid Interpretation Code [facility] Work Phone: [phone] Vital Signs Date Time Vital Sign Value Performing Clinician Facility 05-23-2024 08:19-0500 Body mass index (BMI) [Ratio] 25.21 kg/m2 Giovanni Persaud MD Work Phone: [facility] 05-23-2024 08:19-0500 Body temperature 97.7 [degF] Giovanni Persaud MD Work Phone: [facility] 05-23-2024 08:19-0500 Body weight 84.3 kg Giovanni Persaud MD Work Phone: [facility] 05-23-2024 08:19-0500 Diastolic blood pressure 64 mm[Hg] Giovanni Persaud MD Work Phone: [facility] 05-23-2024 08:19-0500 Heart rate 64 /min Giovanni Persaud MD Work Phone: [facility] 05-23-2024 08:19-0500 Respiratory rate 16 /min Giovanni Persaud MD Work Phone: [facility] 05-23-2024 08:19-0500 Systolic blood pressure 120 mm[Hg] Giovanni Persaud MD Work Phone: [facility] 12-28-2023 13:59-0400 Body mass index (BMI) [Ratio] 24.67 kg/m2 Giovanni Persaud MD Work Phone: [facility] 12-28-2023 13:59-0400 Body temperature 97 [degF] Giovanni Persaud MD Work Phone: [facility] 12-28-2023 13:59-0400 Body weight 82.5 kg Giovanni Persaud MD Work Phone: [facility] 12-28-2023 13:59-0400 Diastolic blood pressure 64 mm[Hg] Giovanni Persaud MD Work Phone: [facility] 12-28-2023 13:59-0400 Heart rate 60 /min Giovanni Persaud MD Work Phone: [facility] 12-28-2023 13:59-0400 Respiratory rate 16 /min Giovanni Persaud MD Work Phone: [facility] 12-28-2023 13:59-0400 Systolic blood pressure 126 mm[Hg] Giovanni Persaud MD Work Phone: [facility] 11-21-2023 08:34-0400 Body height 182.9 cm Giovanni Persaud MD Work Phone: [facility] 11-21-2023 08:34-0400 Body mass index (BMI) [Ratio] 24.61 kg/m2 Giovanni Persaud MD Work Phone: [facility] 11-21-2023 08:34-0400 Body temperature 97.11 [degF] Giovanni Persaud MD Work Phone: [facility] 11-21-2023 08:34-0400 Body weight 82.3 kg Giovanni Persaud MD Work Phone: [facility] 11-21-2023 08:34-0400 Diastolic blood pressure 68 mm[Hg] Giovanni Persaud MD Work Phone: [facility] 11-21-2023 08:34-0400 Heart rate 60 /min Giovanni Persaud MD Work Phone: [facility] 11-21-2023 08:34-0400 Respiratory rate 12 /min Giovanni Persaud MD Work Phone: [facility] 11-21-2023 08:34-0400 Systolic blood pressure 122 mm[Hg] Giovanni Persaud MD Work Phone: [facility] 08-03-2023 11:36-0400 Body height 182.[address] Giovanni Persaud Work Phone: [facility] 08-03-2023 11:36-0400 Body mass index (BMI) [Ratio] 25.2 kg/m2 Dr. Giovanni Persaud Work Phone: [facility] 08-03-2023 11:36-0400 Body weight 84.[address] Giovanni Persaud Work Phone: [facility] 08-03-2023 11:36-0400 Diastolic blood pressure 66 mm[Hg] Dr. Giovanni Persaud Work Phone: [facility] 08-03-2023 11:36-0400 Heart rate 60 /min Dr. Giovanni Persaud Work Phone: [facility] 08-03-2023 11:36-0400 Respiratory rate 16 /min Dr. Giovanni Persaud Work Phone: [facility] 08-03-2023 11:36-0400 Systolic blood pressure 129 mm[Hg] Dr. Giovanni Persaud Work Phone: [facility] 06-19-2023 11:02-0400 Body weight 84.19 kg Jaun Fatchikova MD Work Phone: [facility] 06-19-2023 11:02-0400 Diastolic blood pressure 62 mm[Hg] Jaun Leblanc MD Work Phone: [facility] 06-19-2023 11:02-0400 Heart rate 67 /min Jaun Leblanc MD Work Phone: [facility] 06-19-2023 11:02-0400 SaO2% (BldA) [Mass fraction] 99 % Jaun Leblanc MD Work Phone: [facility] 06-19-2023 11:02-0400 Systolic blood pressure 134 mm[Hg] Jaun Leblanc MD Work Phone: [facility] 05-30-2023 01:06-0500 Respiratory rate 18 /min [facility] 05-30-2023 00:11-0500 Body temperature 98.2 [degF] [facility] 05-30-2023 00:11-0500 Diastolic blood pressure 84 mm[Hg] [facility] 05-30-2023 00:11-0500 Heart rate 76 /min [facility] 05-30-2023 00:11-0500 SaO2% (BldA) [Mass fraction] 98 % [facility] 05-30-2023 00:11-0500 Systolic blood pressure 122 mm[Hg] [facility] 05-29-2023 19:28-0500 Inhaled oxygen flow rate 2 L/min [facility] 05-29-2023 08:38-0500 Body height 182.88 cm [facility] 05-29-2023 08:38-0500 Body mass index (BMI) [Ratio] 26.2 kg/m2 [facility] 05-29-2023 08:38-0500 Body weight 87.5 kg [facility] 05-25-2023 08:31-0500 Body temperature 97.3 [degF] Giovanni Persaud MD Work Phone: [facility] 05-25-2023 08:31-0500 Body weight 87.5 kg Giovanni Persaud MD Work Phone: [facility] 05-25-2023 08:31-0500 Diastolic blood pressure 66 mm[Hg] Giovanni Persaud MD Work Phone: [facility] 05-25-2023 08:31-0500 Heart rate 64 /min Giovanni Persaud MD Work Phone: [facility] 05-25-2023 08:31-0500 Respiratory rate 12 /min Giovanni Persaud MD Work Phone: [facility] 05-25-2023 08:31-0500 Systolic blood pressure 114 mm[Hg] Giovanni Persaud MD Work Phone: [facility] 11-23-2022 08:27-0400 Body height 179.3 cm Giovanni Persaud MD Work Phone: [facility] 11-23-2022 08:27-0400 Body weight 84.73 kg Giovanni Persaud MD Work Phone: [facility] 11-23-2022 08:27-0400 Diastolic blood pressure 68 mm[Hg] Giovanni Persaud MD Work Phone: [facility] 11-23-2022 08:27-0400 Heart rate 56 /min Giovanni Persaud MD Work Phone: [facility] 11-23-2022 08:27-0400 Respiratory rate 12 /min Giovanni Persaud MD Work Phone: [facility] 11-23-2022 08:27-0400 Systolic blood pressure 122 mm[Hg] Giovanni Persaud MD Work Phone: [facility] 08-08-2022 16:58-0400 Diastolic blood pressure 64 mm[Hg] [facility] 08-08-2022 16:58-0400 Heart rate 79 /min [facility] 08-08-2022 16:58-0400 Respiratory rate 16 /min [facility] 08-08-2022 16:58-0400 SaO2% (BldA) [Mass fraction] 97 % [facility] 08-08-2022 16:58-0400 Systolic blood pressure 142 mm[Hg] [facility] 08-08-2022 15:52-0400 Body height 182.88 cm [facility] 08-08-2022 15:52-0400 Body mass index (BMI) [Ratio] 25.6 kg/m2 [facility] 08-08-2022 15:52-0400 Body temperature 97.5 [degF] [facility] 08-08-2022 15:52-0400 Body weight 85.68 kg [facility] 06-09-2022 12:03-0400 Diastolic blood pressure 58 mm[Hg] Giovanni Persaud MD Work Phone: [facility] 06-09-2022 12:03-0400 Systolic blood pressure 126 mm[Hg] Giovanni Persaud MD Work Phone: [facility] 06-09-2022 11:28-0400 Body weight 88 kg Giovanni Persaud MD Work Phone: [facility] 06-09-2022 11:28-0400 Heart rate 56 /min Giovanni Persaud MD Work Phone: [facility] 06-09-2022 11:28-0400 Respiratory rate 16 /min Giovanni Persaud MD Work Phone: [facility] 05-17-2022 08:19-0500 Body temperature 96.01 [degF] Giovanni Persaud MD Work Phone: [facility] 05-17-2022 08:19-0500 Body weight 87.09 kg Giovanni Persaud MD Work Phone: [facility] 05-17-2022 08:19-0500 Diastolic blood pressure 72 mm[Hg] Giovanni Persaud MD Work Phone: [facility] 05-17-2022 08:19-0500 Heart rate 60 /min Giovanni Persaud MD Work Phone: [facility] 05-17-2022 08:19-0500 Respiratory rate 12 /min Giovanni Persaud MD Work Phone: [facility] 05-17-2022 08:19-0500 Systolic blood pressure 126 mm[Hg] Giovanni Persaud MD Work Phone: [facility] 12-30-2021 10:33-0400 Body height 185.[address] Giovanni Persaud Work Phone: [facility] Work Phone: 12-30-2021 10:33-0400 Body mass index (BMI) [Ratio] 25.8 kg/m2 Dr. Giovanni Persaud Work Phone: [facility] Work Phone: 12-30-2021 10:33-0400 Body weight 88.[address] Giovanni Persaud Work Phone: [facility] Work Phone: 12-30-2021 10:33-0400 Diastolic blood pressure 77 mm[Hg] Dr. Giovanni Persaud Work Phone: [facility] Work Phone: 12-30-2021 10:33-0400 Heart rate 62 /min Dr. Giovanni Persaud Work Phone: [facility] Work Phone: 12-30-2021 10:33-0400 Respiratory rate 16 /min Dr. Giovanni Persaud Work Phone: [facility] Work Phone: 12-30-2021 10:33-0400 SaO2% (BldA) [Mass fraction] 97 % Dr. Giovanni Persaud Work Phone: [facility] Work Phone: 12-30-2021 10:33-0400 Systolic blood pressure 124 mm[Hg] Dr. Giovanni Persaud Work Phone: [facility] Work Phone: 11-09-2021 07:53-0400 Body height 181.6 cm Marlys Older DIGITAL CAMPAIGN MANAGER.GEOPHYSICAL E LOGGER Work Phone: [facility] 11-09-2021 07:53-0400 Body weight 88.91 kg Marlys Older DIGITAL CAMPAIGN MANAGER.GEOPHYSICAL E LOGGER Work Phone: [facility] 11-09-2021 07:53-0400 Diastolic blood pressure 74 mm[Hg] Marlys Older DIGITAL CAMPAIGN MANAGER.GEOPHYSICAL E LOGGER Work Phone: [facility] 11-09-2021 07:53-0400 Heart rate 68 /min Marlys Older DIGITAL CAMPAIGN MANAGER.GEOPHYSICAL E LOGGER Work Phone: [facility] 11-09-2021 07:53-0400 Respiratory rate 12 /min Marlys Older DIGITAL CAMPAIGN MANAGER.GEOPHYSICAL E LOGGER Work Phone: [facility] 11-09-2021 07:53-0400 Systolic blood pressure 124 mm[Hg] Marlys Older DIGITAL CAMPAIGN MANAGER.GEOPHYSICAL E LOGGER Work Phone: [facility] 11-15-2016 09:40-0400 BMI (Body Mass Index) 29.71 kg/m2 [facility] Work Phone: 11-15-2016 09:40-0400 BP Diastolic 76 mm[Hg] [facility] Work Phone: 11-15-2016 09:40-0400 BP Systolic 138 mm[Hg] [facility] Work Phone: 11-15-2016 09:40-0400 Height 180.34 cm [facility] Work Phone: 11-15-2016 09:40-0400 Pulse (Heart Rate) 76 /min [facility] Work Phone: 11-15-2016 09:40-0400 Respiratory Rate 20 /min [facility] Work Phone: 11-15-2016 09:40-0400 Weight 96.64 kg [facility] Work Phone: 05-12-2016 09:57-0500 BMI (Body Mass Index) 30.08 kg/m2 MD [facility] Work Phone: 05-12-2016 09:57-0500 BP Diastolic 60 mm[Hg] MD [facility] Work Phone: 05-12-2016 09:57-0500 BP [...] Work Phone: 05-12-2016 09:57-0500 Weight 97.84 kg Luipllo Meyer MD [facility] Work Phone: 11-12-2015 07:40-0400 Height 180.34 cm MD [facility] Work Phone: 05-17-2012 15:59-0500 Heart rate 61 /min Lupillo Meyer MD [facility] Work Phone: Encounters Encounter Date Encounter Type Care Provider Facility Start: 08-10-2024 End: 08-12-2024 Refill Giovanni Persaud MD Work Phone: [facility] [place] Comment on above: Refill Request Start: 07-26-2024 End: 07-27-2024 ambulatory Giovanni Persaud MD Work Phone: [facility] [place] Comment on above: My Gabapetin prescri ption Start: 07-24-2024 End: 07-25-2024 Refill Giovanni Persaud MD Work Phone: [facility] [place] Comment on above: Refill Request Start: 06-12-2024 End: 06-13-2024 Refill Giovanni Persaud MD Work Phone: [facility] [place] Comment on above: Refill Request Start: 05-23-2024 End: 05-23-2024 ambulatory GIOVANNI PERSAUD Facility:[facility] Start: 05-23-2024 End: 05-23-2024 Office outpatient visit 15 minutes Giovanni Persaud MD Work Phone: [facility] [place] Comment on above: Essential hypertensi on, benign (Primary Dx); 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, unspecified vessel or lesion type; Stage 3a chronic kidney disease (HCC); Diarrhea, unspecified type Start: 05-17-2024 End: 05-17-2024 Follow-up encounter Giovanni Persaud MD Work Phone: [facility] [place] Start: 05-16-2024 End: 05-16-2024 ambulatory GIOVANNI PERSAUD Facility:[facility] Start: 01-23-2024 End: 01-23-2024 ambulatory GIOVANNI PERSAUD Facility:[facility] Start: 01-10-2024 End: 01-10-2024 Refill Giovanni Persaud MD Work Phone: [facility] [place] Comment on above: Refill Request Start: 01-04-2024 End: 01-04-2024 ambulatory GIOVANNI PERSAUD Facility:[facility] Start: 01-01-2024 End: 01-01-2024 Telephone encounter Giovanni Persaud MD Work Phone: [facility] [place] Comment on above: Orders Start: 12-30-2023 End: 12-30-2023 Orders Only Giovanni Persaud MD Work Phone: [facility] [place] Comment on above: Stage 3a chronic kid karen disease (HCC) (Primary Dx) Start: 12-28-2023 End: 12-28-2023 ambulatory GIOVANNI PERSAUD Facility:[facility] Start: 12-28-2023 End: 12-28-2023 Patient encounter procedure Giovanni Persaud MD Work Phone: [facility] [place] Comment on above: Diarrhea, unspecifie d type (Primary Dx) Start: 11-21-2023 End: 11-21-2023 ambulatory GIOVANNI PERSAUD Facility:[facility] Start: 11-21-2023 End: 11-21-2023 Patient encounter procedure Giovanni Persaud MD Work Phone: [facility] [place] Comment on above: Medicare annual well ness visit, subsequent (Primary Dx); Encounter for screening examination for other mental health and behavioral disorders; Screening for depression; Essential hypertension, benign; Other hyperlipidemia; Trigeminal neuralgia; 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, unspecified vessel or lesion type; Need for vaccination; Anemia, unspecified type; Stage 3a chronic kidney disease (HCC) Start: 11-14-2023 End: 11-14-2023 ambulatory GIOVANNI PERSAUD Facility:[facility] Start: 10-23-2023 ambulatory Self Referred Facility: [facility] Start: 08-28-2023 Refill Marlys gross DIGITAL CAMPAIGN MANAGER.GEOPHYSICAL E LOGGER Work Phone: [facility] [place] Comment on above: Refill Request Start: 08-14-2023 Refill Marlys gross DIGITAL CAMPAIGN MANAGER.GEOPHYSICAL E LOGGER Work Phone: [facility] [place] Comment on above: Refill Request Start: 08-03-2023 End: 08-03-[address] Giovanni Persaud Work Phone: [facility] Work Phone: Start: 08-03-2023 End: 08-03-2023 ambulatory [facility] Facility:[facility] Start: 08-03-2023 End: 08-03-20[facility] Start: 08-01-2023 End: 08-01-[address] Giovanni Persaud Work Phone: [facility] Work Phone: Start: 08-01-2023 End: 08-01-[address] Giovanni Persaud Work Phone: [facility] Work Phone: Start: 08-01-2023 End: 08-01-2023 ambulatory [place]anta Meyer Facility:[facility] Start: 06-19-2023 ambulatory JAUN Mendoza lity:[phone] Start: 06-19-2023 End: 06-19-2023 Patient encounter procedure Jaun Leblanc MD Work Phone: [facility] Comment on above: S/P laparoscopic cho lecystectomy (Primary Dx) Start: 05-30-2023 Evaluation and manag ement of inpatient STEPHANE ROSALES Facility:[id number] Start: 05-29-2023 End: 05-30-2023 Emergency department patient visit [facility] Work Phone: Start: 05-25-2023 End: 05-25-2023 Patient encounter procedure Giovanni Persaud MD Work Phone: [facility] [place] Comment on above: Stage 3a chronic kid karen disease (HCC) (Primary Dx); Other hyperlipidemia; Essential hypertension, benign Start: 02-27-2023 Refill Marlys Manjit r DIGITAL CAMPAIGN MANAGER.GEOPHYSICAL E LOGGER Work Phone: [facility] [place] Comment on above: Refill Request Start: 02-08-2023 ambulatory Marlys Older DIGITAL CAMPAIGN MANAGER .GEOPHYSICAL E LOGGER Work Phone: [facility] [place] Comment on above: FLUE VACCINATION Start: 01-23-2023 ambulatory Marlys Older DIGITAL CAMPAIGN MANAGER .GEOPHYSICAL E LOGGER Work Phone: [facility] [place] Comment on above: COVID VACCINATION Start: 01-03-2023 ambulatory Giovanni king MD Work Phone: [facility] [place] Comment on above: RSV VACCINATION Start: 11-23-2022 End: 11-23-2022 Patient encounter procedure Giovanni Persaud MD Work Phone: [facility] [place] Comment on above: Medicare annual well ness visit, subsequent (Primary Dx); Trigeminal neuralgia; Essential hypertension, benign; Other hyperlipidemia; 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, unspecified vessel or lesion type; Stage 3a chronic kidney disease (HCC); BPH with obstruction/lower urinary tract symptoms Start: 10-22-2022 Refill Marlys Older DIGITAL CAMPAIGN MANAGER .GEOPHYSICAL E LOGGER Work Phone: [facility] [place] Comment on above: Refill Request Start: 08-08-2022 End: 08-08-2022 Emergency department patient visit [facility] Start: 08-01-2022 Refill Marlys Older DIGITAL CAMPAIGN MANAGER .GEOPHYSICAL E LOGGER Work Phone: [facility] [place] Comment on above: Refill Request Start: 07-20-2022 End: 07-20-2022 Patient encounter procedure [facility] Start: 06-30-2022 End: 06-30-2022 Subsequent hospital visit by physician [facility] Work Phone: Radiology Comment on above: Stage 3a chronic kid karen disease (HCC) [N18.31] Start: 06-09-2022 End: 06-09-2022 Patient encounter procedure Giovanni Persaud MD Work Phone: [facility] [place] Comment on above: Stage 3a chronic kid karen disease (HCC) (Primary Dx); Essential hypertension, benign Start: 05-30-2022 Refill Marlys Older DIGITAL CAMPAIGN MANAGER .GEOPHYSICAL E LOGGER Work Phone: [facility] [place] Comment on above: Refill Request Start: 05-17-2022 End: 05-17-2022 Patient encounter procedure Giovanni Persaud MD Work Phone: [facility] [place] Comment on above: Stage 3a chronic kid karen disease (HCC) (Primary Dx); Essential hypertension, benign; Other hyperlipidemia Start: 01-18-2022 Non-patient / Non-visit Dr. Maggi Persaud Work Phone: [facility] Start: 01-18-2022 End: 01-18-[address] Giovanni Persaud Work Phone: [facility] Work Phone: Start: 01-18-2022 End: 01-18-[address] Giovanni Persaud Work Phone: [facility] Start: 12-30-2021 End: 12-30-[address] Giovanni Persaud Work Phone: [facility] Start: 12-23-2021 End: 12-23-2021 ambulatory [facility] Work Phone: Start: 12-23-2021 End: 12-23-2021 Patient encounter procedure [facility] Start: 11-09-2021 End: 11-09-2021 Patient encounter procedure Marlys Older DIGITAL CAMPAIGN MANAGER.GEOPHYSICAL E LOGGER Work Phone: [facility] [place] Comment on above: Medicare annual well ness visit, subsequent (Primary Dx); Essential hypertension, benign; Trigeminal neuralgia; Stage 3a chronic kidney disease (HCC) Start: 11-01-2021 ambulatory Marlys Older DIGITAL CAMPAIGN MANAGER .GEOPHYSICAL E LOGGER Work Phone: [facility] [place] Comment on above: BLOOD TEST Start: 10-25-2021 Refill Marlys Older DIGITAL CAMPAIGN MANAGER .GEOPHYSICAL E LOGGER Work Phone: [facility] [place] Comment on above: Refill Request Start: 08-24-2021 Refill Giovanni king MD Work Phone: [facility] [place] Comment on above: Refill Request Start: 08-10-2021 Refill Marlys Older DIGITAL CAMPAIGN MANAGER .GEOPHYSICAL E LOGGER Work Phone: [facility] [place] Comment on above: Refill Request Start: 08-03-2021 MC Get Medical Advice Marlys Olde r DIGITAL CAMPAIGN MANAGER.GEOPHYSICAL E LOGGER Work Phone: [facility] [place] Comment on above: FLOMAX REFILL Start: 07-01-2021 End: 07-01-2021 Patient encounter procedure [facility] Procedures Date Procedure Procedure Detail Performing Clinician Start: 11-21-2023 Adult depression screening assessment Giovanni Persaud MD Work Phone: Start: 05-29-[address] Giovanni Persaud Work Phone: Start: 05-29-2023 Computed tomography of abdomen and pelvis with intravenous contrast Start: 05-29-2023 US scan of gallbladder Start: 06-30-2022 Us retroperitoneal real time w/image complete Giovanni Persaud MD Work Phone: Start: 01-18-2022 Radionuclide imaging of perfusion of myocardium under exercise stress Dr. Giovanni Persaud Work Phone: Start: 05-02-2017 End: 05-02-2017 *Hepatic Function Panel Omar Manuel Start: 05-02-2017 End: 05-02-2017 Lipid panel [AGGREGATE] Omar Manuel Start: 11-15-2016 End: 11-15-2016 ROCHELLE Meyer MD Start: 11-15-2016 End: 11-15-2016 Follow [...] [AGGREGATE] Omar Manuel Start: 10-03-2014 End: 10-03-2014 ROCHELLE Meyer MD Start: 10-03-2014 End: 10-04-2014 Documentation [...] 01-25-2014 End: 01-28-2014 *Hepatic Function Panel Dana Harkins PA-C Work Phone: Start: 01-25-2014 End: 01-28-2014 Lipid panel [AGGREGATE] Dana Harkins PA-C Work Phone: Start: 08-20-2013 End: 11-01-2013 [...] [AGGREGATE] Omar Manuel Start: 08-21-2012 End: 08-21-2012 ROCHELLE Meyer MD Start: 08-21-2012 End: 08-21-2012 Follow Up Appt 6 months Omar Manuel Start: 05-17-2012 End: 08-15-2012 *Hepatic Function Panel Omar Manuel Start: 05-17-2012 End: 11-10-2015 Cardiac Rehab Lupillo Meyer MD Start: 05-17-2012 End: 11-10-2015 SOLE MOLDING 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 Lupillo Meyer MD Start: 05-17-2012 End: 11-10-2015 Electrocardiogram, complete Lupillo Meyer MD Start: 05-17-2012 End: 11-10-2015 Follow Up Appt 3 months Omar Manuel Start: 05-17-2012 End: 08-15-2012 Lipid panel [AGGREGATE] Omar Manuel Start: 05-08-2012 Percutaneous transluminal coronary angioplasty PERCUTANEOUS TRANSLUMINAL CORONARY ANGIOPLASTY, HX OF Lupillo Meyer MD Start: 05-08-2012 Placement of stent in coronary artery Status post cardiac stent placement Lupillo Meyer MD Start: 04-24-2012 History of placement of stent for coronary artery disease History of coronary artery stent placement History of cholecystectomy S/P laparoscopic cholecystectomy Jaun Leblanc MD Work Phone: Plan of Treatment Date Care Activity Detail Author Start: 11-30-2033 Urine microalbumin profile DTaP,Tdap,Td Vaccine (4 - Td or Tdap) [facility] Start: 05-16-2027 Diabetes Screening Diabetes Screenin g [facility] Start: 12-27-2026 Diabetes Screening Diabetes Screenin g [facility] Start: 11-13-2026 Diabetes Screening Diabetes Screenin g [facility] Start: 05-31-2026 Diabetes Screening Diabetes Screenin g [facility] Start: 05-18-2026 Diabetes Screening Diabetes Screenin g [facility] Start: 11-17-2025 DIABETES SCREEN DIABETES SCREEN [facility] Start: 11-17-2025 Diabetes Screening Diabetes Screenin g [facility] Start: 06-07-2025 DIABETES SCREEN DIABETES SCREEN [facility] Start: 12-27-2024 Covid-19 Vaccine () Covid-19 Vaccine () [facility] Comment on above: Postponed from 11/25 (Declined at this time) Start: 12-08-2024 DIABETES SCREEN DIABETES SCREEN [facility] Start: 11-21-2024 End: 11-21-2024 Patient encounter procedure 11/21/2024 9:00 AM EDT Office Visit [facility] [place] [address] [place] [id number] Giovanni Persaud MD [address] [place] [address] Annual Medical Wellness w/6 month follow-up [facility] [place] Comment on above: Annual Medical Welln ess w/6 month follow-up Start: 11-20-2024 Anxiety Screening Anxiety Screening [facility] Start: 11-20-2024 Depression Screening Depression Scre ening [facility] Start: 11-13-2024 Hepatitis B surface antibody level LDL Cholesterol [facility] Start: 11-04-2024 End: 02-03-2025 Basic metabolic 2000 panel - Serum or Plasma BASIC METABOLIC PANEL Lab Routine Stage 3a chronic kidney disease (HCC) Expected: 11/04/2024, Expires: 02/03/[address] [facility] Work Phone: Comment on above: Expected: 11/04/2024 , Expires: 02/03/2025 Start: 11-04-2024 DIABETES SCREEN DIABETES SCREEN [facility] Start: 06-28-2024 Covid-19 Vaccine () Covid-19 Vaccine () [facility] Start: 05-23-2024 End: 08-22-2024 Basic metabolic 2000 panel - Serum or Plasma BASIC METABOLIC PANEL Lab Routine Stage 3a chronic kidney disease (HCC) Expected: 05/23/2024, Expires: 08/22/2024 [facility] Comment on above: Expected: 05/23/2024 , Expires: 08/22/2024 Start: 05-23-2024 End: 08-22-2024 CBC panel - Blood by Automated count COMPLETE BLOOD COUNT Lab Routine Anemia, unspecified type Expected: 05/23/2024, Expires: 08/22/[address] [facility] Work Phone: Comment on above: Expected: 05/23/2024 , Expires: 08/22/2024 Start: 05-23-2024 End: 05-23-2024 Patient encounter procedure 05/23/2024 8:40 AM EST Office Visit [facility] [place] [address] [place], [place] [id number] Giovanni Persaud MD [address] [place], [place] [id number] 6 month follow-up [facility] [place] Comment on above: 6 month follow-up Start: 05-13-2024 DIABETES SCREEN DIABETES SCREEN [facility] Start: 03-27-2024 Advance Directive Discussion Advance Directive Discussion [facility] Start: 01-13-2024 End: 04-13-2024 Basic metabolic 2000 panel - Serum or Plasma BASIC METABOLIC PANEL Lab Routine Stage 3a chronic kidney disease (HCC) Expected: 01/13/2024, Expires: 04/13/[address] [facility] Work Phone: Comment on above: Expected: 01/13/2024 , Expires: 04/13/2024 Start: 01-01-2024 End: 04-01-2024 FECAL LACTOFERRIN/LEUKOCYTES FECAL LACTOFERRIN/LEUKOCYTES Lab Routine Diarrhea, unspecified type Expected: 01/01/2024, Expires: 04/01/[address] [facility] Work Phone: Comment on above: Expected: 01/01/2024 , Expires: 04/01/2024 Start: 12-28-2023 End: 03-28-2024 Basic metabolic 2000 panel - Serum or Plasma [facility] Comment on above: Expected: 12/28/2023 , Expires: 03/28/2024 Start: 12-28-2023 End: 03-28-2024 CBC panel - Blood by Automated count [facility] Work Phone: Comment on above: Expected: 12/28/2023 , Expires: 03/28/2024 Start: 11-26-2023 Influenza vaccination Influenza Vacc ine (#1) [facility] Start: 11-23-2023 End: 02-22-2024 Comprehensive metabolic 2000 panel - Serum or Plasma COMP METABOLIC PANEL Lab Routine Other hyperlipidemia Expected: 11/23/2023, Expires: 02/22/[address] [facility] Work Phone: Comment on above: Expected: 11/23/2023 , Expires: 02/22/2024 Start: 11-23-2023 End: 02-22-2024 Lipid 1996 panel - Serum or Plasma LIPID PANEL BASIC Lab Routine Other hyperlipidemia Expected: 11/23/2023, Expires: 02/22/[address] [facility] Work Phone: Comment on above: Expected: 11/23/2023 , Expires: 02/22/2024 Start: 11-21-2023 End: 11-21-2023 Patient encounter procedure 11/21/2023 9:00 AM EDT Office Visit [facility] [place] [address] [place] [address] Giovanni Persaud MD [address] [place] [id number] 6 month follow up - Medicare Wellness [facility] [place] Comment on above: 6 month follow up - Medicare Wellness Start: 11-18-2023 Hepatitis B surface antibody level LDL CHOLESTEROL [facility] Start: 05-29-2023 Bacteria identified in Urine by Culture [facility] Start: 05-29-2023 [facility] Start: 05-25-2023 End: 07-25-2023 Basic metabolic 2000 panel - Serum or Plasma BASIC METABOLIC PNL Lab Routine Stage 3a chronic kidney disease (HCC) Expected: 05/25/2023, Expires: 07/25/[address] [facility] Work Phone: Comment on above: Expected: 05/25/2023 , Expires: 07/25/2023 Start: 05-25-2023 End: 07-25-2023 CBC panel - Blood by Automated count CBC Lab Routine Stage 3a chronic kidney disease (HCC) Expected: 05/25/2023, Expires: 07/25/[address] [facility] Work Phone: Comment on above: Expected: 05/25/2023 , Expires: 07/25/2023 Start: 05-25-2023 End: 07-25-2023 PSA/PROSTSPECAG SCRN PSA/PROSTSPECAG SCRN Lab Routine BPH with obstruction/lower urinary tract symptoms Expected: 05/25/2023, Expires: 07/25/[address] [facility] Work Phone: Comment on above: Expected: 05/25/2023 , Expires: 07/25/2023 Start: 05-22-2023 Covid-19 Vaccine () Covid-19 Vaccine () [facility] Start: 03-27-2023 Advance Directive Discussion Advance Directive Discussion [facility] Start: 03-27-2023 Behavioral Health Screening Behavioral Health Screening [facility] Start: 03-27-2023 Depression Assessment Depression Ass essment [facility] Start: 01-18-2023 Urine microalbumin profile [facility] Start: 11-25-2022 Covid-19 Vaccine ( season) Covid-19 Vaccine () [facility] Start: 11-25-2022 Influenza vaccination C [facility] Start: 11-14-2022 End: 01-14-2023 Comprehensive metabolic 2000 panel - Serum or Plasma COMP METABOLIC PANEL Lab Routine Other hyperlipidemia Expected: 11/14/2022, Expires: 01/14/[address] [facility] Work Phone: Comment on above: Expected: 11/14/2022 , Expires: 01/14/2023 Start: 11-14-2022 End: 01-14-2023 Lipid 1996 panel - Serum or Plasma LIPID PANEL BASIC Lab Routine Other hyperlipidemia Expected: 11/14/2022, Expires: 01/14/[address] [facility] Work Phone: Comment on above: Expected: 11/14/2022 , Expires: 01/14/2023 Start: 07-01-2022 Hepatitis B surface antibody level LDL CHOLESTEROL [facility] Start: 05-31-2022 End: 07-31-2022 Basic metabolic 2000 panel - Serum or Plasma BASIC METABOLIC PNL Lab Routine Stage 3a chronic kidney disease (HCC) Expected: 05/31/2022, Expires: 07/31/[address] [facility] Work Phone: Comment on above: Expected: 05/31/2022 , Expires: 07/31/2022 Start: 04-16-2022 COVID-19 VACCINE (6 - Moderna series) COVID-19 VACCINE (6 - Moderna series) [facility] Start: 03-27-2022 ADVANCE DIRECTIVE DISCUSSION ADVANCE DIRECTIVE DISCUSSION [facility] Start: 03-27-2022 DEPRESSION ASSESSMENT DEPRESSION ASS ESSMENT [facility] Start: 11-25-2021 Influenza vaccination INFLUENZA (#1) [facility] [place] Start: 11-23-2021 End: 01-23-2022 Basic metabolic 2000 panel - Serum or Plasma BASIC METABOLIC PNL Lab Routine Stage 3a chronic kidney disease (HCC) Expected: 11/23/2021 (Approximate), Expires: 01/23/[address] [facility] Work Phone: Comment on above: Expected: 11/23/2021 (Approximate), Expires: 01/23/2022 Start: 11-02-2021 End: 01-02-2022 Basic metabolic 2000 panel - Serum or Plasma BASIC METABOLIC PNL Lab Routine Stage 3a chronic kidney disease (HCC) Expected: 11/02/2021, Expires: 01/02/[address] [facility] Work Phone: Comment on above: Expected: 11/02/2021 , Expires: 01/02/2022 Start: 11-02-2021 End: 01-02-2022 CBC panel - Blood by Automated count CBC Lab Routine Stage 3a chronic kidney disease (HCC) Expected: 11/02/2021, Expires: 01/02/[address] [facility] Work Phone: Comment on above: Expected: 11/02/2021 , Expires: 01/02/2022 Start: 05-31-2021 COVID-19 VACCINE (4 - Booster for Moderna series) COVID-19 VACCINE (4 - Booster for Moderna series) [facility] Start: 03-27-2021 ADVANCE DIRECTIVE DISCUSSION ADVANCE DIRECTIVE DISCUSSION [facility] Start: 11-16-2017 End: 11-16-2017 Appointment Appointment [facility] Work Phone: Start: 05-05-2017 End: 05-02-2017 *Hepatic Function Panel *Hepatic Function Panel [facility] Work Phone: Start: 05-05-2017 End: 05-02-2017 Lipid panel [AGGREGATE] *Lipid Profile CC PCP [facility] Work Phone: Start: 11-15-2016 End: 11-15-2016 Appointment Appointment [facility] Work Phone: Start: 11-15-2016 End: 11-15-2016 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 [facility] Work Phone: Start: 11-15-2016 End: 11-15-2016 Follow Up Appt 1 year Follow Up Appt 1 year [facility] Work Phone: Start: 11-02-2016 End: 11-04-2016 *Hepatic Function Panel *Hepatic Function Panel [facility] Work Phone: Start: 11-02-2016 End: 11-04-2016 Lipid panel [AGGREGATE] *Lipid Profile CC PCP [facility] Work Phone: Start: 06-06-2016 End: 05-19-2016 Nuclear stress test -exercise Nuclear stress test -exercise [facility] Work Phone: Start: 05-12-2016 End: 05-12-2016 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 [facility] Work Phone: Start: 05-12-2016 End: 05-12-2016 Follow Up Appt 6 months Follow Up Appt 6 months [facility] Work Phone: Start: 05-04-2016 End: 05-04-2016 *Hepatic Function Panel *Hepatic Function Panel [facility] Work Phone: Start: 05-04-2016 End: 05-04-2016 Lipid panel [AGGREGATE] *Lipid Profile CC PCP [facility] Work Phone: Start: 11-12-2015 End: 11-12-2015 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 [facility] Work Phone: Start: 11-12-2015 End: 11-12-2015 Follow Up Appt 6 months Follow Up Appt 6 months [facility] Work Phone: Start: 10-13-2015 End: 11-04-2015 *Hepatic Function Panel *Hepatic Function Panel [facility] Work Phone: Start: 10-13-2015 End: 11-04-2015 Lipid panel [AGGREGATE] *Lipid Profile CC PCP [facility] Work Phone: Start: 04-21-2015 End: 11-10-2015 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 [facility] Work Phone: Start: 04-21-2015 End: 11-10-2015 Follow Up Appt 6 months Follow Up Appt 6 months [facility] Work Phone: Start: 03-24-2015 End: 04-14-2015 *Hepatic Function Panel *Hepatic Function Panel [facility] Work Phone: Start: 03-24-2015 End: 04-14-2015 Lipid panel [AGGREGATE] *Lipid Profile CC PCP [facility] Work Phone: Start: 10-03-2014 End: 10-03-2014 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 [facility] Work Phone: Start: 10-03-2014 End: 10-03-2014 Follow Up Appt 6 months Follow Up Appt 6 months [facility] Work Phone: Start: 07-25-2014 End: 09-23-2014 *Hepatic Function Panel *Hepatic Function Panel [facility] Work Phone: Start: 07-25-2014 End: 09-23-2014 Lipid panel [AGGREGATE] *Lipid Profile CC PCP [facility] Work Phone: Start: 02-11-2014 End: 02-11-2014 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 [facility] Work Phone: Start: 02-11-2014 End: 02-11-2014 Follow Up Appt 6 months Follow Up Appt 6 months [facility] Work Phone: Start: 01-25-2014 End: 01-28-2014 *Hepatic Function Panel *Hepatic Function Panel [facility] Work Phone: Start: 01-25-2014 End: 01-28-2014 Lipid panel [AGGREGATE] *Lipid Profile CC PCP [facility] Work Phone: Start: 08-20-2013 End: 08-20-2013 Carotid duplex Carotid duplex [facility] Work Phone: Start: 08-20-2013 End: 08-20-2013 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 [facility] Work Phone: Start: 08-20-2013 End: 08-20-2013 Echo exam of abdomen US Abdominal (aneurysm screening) [facility] Work Phone: Start: 08-20-2013 End: 08-20-2013 Follow Up Appt 6 months Follow Up Appt 6 months [facility] Work Phone: Start: 08-20-2013 End: 08-20-2013 Nuclear stress test -exercise Nuclear stress test -exercise [facility] Work Phone: Start: 06-25-2013 End: 07-30-2013 *Hepatic Function Panel *Hepatic Function Panel [facility] Work Phone: Start: 06-25-2013 End: 07-30-2013 Lipid panel [AGGREGATE] *Lipid Profile CC PCP [facility] Work Phone: Start: 03-07-2013 End: 03-07-2013 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 [facility] Work Phone: Start: 03-07-2013 End: 03-07-2013 Follow Up Appt 6 months Follow Up Appt 6 months [facility] Work Phone: Start: 01-25-2013 End: 01-25-2013 *Hepatic Function Panel *Hepatic Function Panel [facility] Work Phone: Start: 01-25-2013 End: 01-25-2013 Lipid panel [AGGREGATE] *Lipid Profile CC PCP [facility] Work Phone: Start: 08-21-2012 End: 08-21-2012 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 [facility] Work Phone: Start: 08-21-2012 End: 08-21-2012 Follow Up Appt 6 months Follow Up Appt 6 months [facility] Work Phone: Start: 05-17-2012 End: 08-15-2012 *Hepatic Function Panel *Hepatic Function Panel [facility] Work Phone: Start: 05-17-2012 End: 11-10-2015 Cardiac Rehab Cardiac Rehab [facility] Work Phone: Start: 05-17-2012 End: 11-10-2015 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 [facility] Work Phone: Start: 05-17-2012 End: 11-10-2015 Electrocardiogram, complete EKG (In office) [facility] Work Phone: Start: 05-17-2012 End: 11-10-2015 Follow Up Appt 3 months Follow Up Appt 3 months [facility] Work Phone: Start: 05-17-2012 End: 08-15-2012 Lipid panel [AGGREGATE] *Lipid Profile [facility] Work Phone: FECAL LACTOFERRIN/LEUKOCYTES FECAL LACTOFERRIN/LEUKOCYTES Lab Routine Diarrhea, unspecified type Ordered: 12/28/2023 [facility] Comment on above: Ordered: 12/28/2023 Patient Education [facility] Work Phone: Patient referral [facility] Work Phone: End: 07-09-2023 US KIDNEY/BLADDER US KIDNEY/BLADDER Radiology Routine Stage 3a chronic kidney disease (HCC) 1 Occurrences starting 06/09/2022 until 07/09/[address] [facility] Work Phone: Comment on above: 1 Occurrences starti ng 06/09/2022 until 07/09/[address] [facility] Immunizations Immunization Date Immunization Notes Care Provider Fa cility 12-29-2023 COVID-19 vaccine, ag e 12+ yr (MODERNA) Giovanni Persaud MD Work Phone: [facility] 12-15-2023 Seasonal trivalent influenza vaccine, adjuvanted, preservative free Giovanni Persaud MD Work Phone: [facility] 12-01-2023 tetanus toxoid, redu tahir diphtheria toxoid, and acellular pertussis vaccine, adsorbed Giovanni Persaud MD Work Phone: [facility] 11-21-2023 pneumococcal conjuga te (PCV20) vaccine, 20 valent (PREVNAR 20) Giovanni Persaud MD Work Phone: [facility] 11-21-2023 pneumococcal Conjuga te, unspecified formulation Giovanni Persaud MD Work Phone: [facility] 02-06-2023 influenza, high dose seasonal, preservative-free Marlys Older DIGITAL CAMPAIGN MANAGER.GEOPHYSICAL E LOGGER Work Phone: [facility] Work Phone: 02-06-2023 influenza virus vacc ine, unspecified formulation Giovanni Persaud MD Work Phone: [facility] 01-19-2023 COVID-19 vaccine, ag e 12+ yr, season (MODERNA) Marlys Older DIGITAL CAMPAIGN MANAGER.GEOPHYSICAL E LOGGER Work Phone: [facility] 01-03-2023 respiratory syncytia l virus (RSV), unspecified formulation Giovanni Persaud MD Work Phone: [facility] Work Phone: 01-04-2022 influenza (HD-IIV4) vaccine, age 65+ yr, high dose, quadrivalent, PF (FLUZONE HIGH-DOSE) Marlys Older DIGITAL CAMPAIGN MANAGER.GEOPHYSICAL E LOGGER Work Phone: [facility] Work Phone: 01-04-2022 influenza virus vacc ine, unspecified formulation Giovanni Persaud MD Work Phone: [facility] 12-07-2020 influenza (HD-IIV4) vaccine, age 65+ yr, high dose, quadrivalent, PF (FLUZONE HIGH-DOSE) Marlys Older DIGITAL CAMPAIGN MANAGER.[facility] Work Phone: [facility] Work Phone: 12-07-2020 influenza, high dose seasonal, preservative-free Marlys Older DIGITAL CAMPAIGN MANAGER.[facility] Work Phone: [facility] Work Phone: 05-15-2020 Covid (Moderna) [facility] Work Phone: 04-17-2020 Covid (Moderna) [facility] 12-10-2019 influenza, high dose seasonal, preservative-free Marlys Older DIGITAL CAMPAIGN MANAGER.GEOPHYSICAL E LOGGER Work Phone: [facility] Work Phone: 12-10-2019 influenza, injectabl e, quadrivalent, preservative free Marlys Older DIGITAL CAMPAIGN MANAGER.GEOPHYSICAL E LOGGER Work Phone: [facility] Work Phone: 12-26-2018 influenza, high dose seasonal, preservative-free Marlys Older DIGITAL CAMPAIGN MANAGER.GEOPHYSICAL E LOGGER Work Phone: [facility] Work Phone: 12-11-2018 zoster vaccine recombinant Marlys Older DIGITAL CAMPAIGN MANAGER.GEOPHYSICAL E LOGGER Work Phone: [facility] Work Phone: 07-18-2018 zoster vaccine recombinant Marlys Older DIGITAL CAMPAIGN MANAGER.GEOPHYSICAL E LOGGER Work Phone: [facility] Work Phone: 12-25-2017 influenza, high dose seasonal, preservative-free Marlys Older DIGITAL CAMPAIGN MANAGER.GEOPHYSICAL E LOGGER Work Phone: [facility] Work Phone: 12-12-2016 influenza, high dose seasonal, preservative-free Marlys Older DIGITAL CAMPAIGN MANAGER.GEOPHYSICAL E LOGGER Work Phone: [facility] Work Phone: 12-01-2015 influenza, high dose seasonal, preservative-free Marlys Older DIGITAL CAMPAIGN MANAGER.GEOPHYSICAL E LOGGER Work Phone: [facility] 12-24-2014 influenza, seasonal, injectable Marlys Older DIGITAL CAMPAIGN MANAGER.GEOPHYSICAL E LOGGER Work Phone: [facility] 07-23-2014 pneumococcal conjuga te vaccine, 13 valent Marlys Older DIGITAL CAMPAIGN MANAGER.GEOPHYSICAL E LOGGER Work Phone: [facility] 12-23-2013 influenza virus vacc ine, whole virus Marlys Older DIGITAL CAMPAIGN MANAGER.GEOPHYSICAL E LOGGER Work Phone: [facility] Work Phone: 03-12-2013 zoster vaccine, live Marlys Old er DIGITAL CAMPAIGN MANAGER.GEOPHYSICAL E LOGGER Work Phone: [facility] Work Phone: 01-18-2013 tetanus and diphther ia toxoids, adsorbed, preservative free, for adult use (2 Lf of tetanus toxoid and 2 Lf of diphtheria toxoid) Marlys Older DIGITAL CAMPAIGN MANAGER.GEOPHYSICAL E LOGGER Work Phone: [facility] 01-08-2013 influenza virus vacc ine, unspecified formulation Marlys Older DIGITAL CAMPAIGN MANAGER.GEOPHYSICAL E LOGGER Work Phone: [facility] Work Phone: 01-17-2011 influenza virus vacc ine, unspecified formulation Marlys Older DIGITAL CAMPAIGN MANAGER.GEOPHYSICAL E LOGGER Work Phone: [facility] Work Phone: 01-25-2006 influenza virus vacc ine, unspecified formulation Marlys Older DIGITAL CAMPAIGN MANAGER.GEOPHYSICAL E LOGGER Work Phone: [facility] 06-17-2003 pneumococcal polysaccharide vaccine, 23 valent Marlys Older DIGITAL CAMPAIGN MANAGER.GEOPHYSICAL E LOGGER Work Phone: [facility] Work Phone: 05-17-2002 diphtheria and tetan us toxoids, adsorbed for pediatric use Marlys Older DIGITAL CAMPAIGN MANAGER.GEOPHYSICAL E LOGGER Work Phone: [facility] Work Phone: Payers Date Payer Category Payer Self-pay [id number] 2021 Medicare [id number] 2021 Medicare AETNA MEDICARE A ETNA MEDICARE PPO [id number] 2021-Present [phone] [facility] [id number] [place] [address] [facility] [id number] 2021 Medicare (Managed Care) [place] [id number] 2012 Private Health Insurance [id number] Unknown [id number] Unknown [id number] Unknown [id number] Unknown [id number] Unknown [id number] Social History Date Type Detail Facility Start: 12-31-2020 End: 05-29-2023 Tobacco smoking status OKIS Unknown if ever smoked [facility] Start: 05-18-2016 None [facility] Start: 05-18-2016 Non-smoker [facility] Start: 1940 Sex Assigned At Male [facility] Start: 04-26-2011 End: 11-09-2021 Tobacco smoking status NHIS Never smoked tobacco [facility] Start: 05-12-2021 End: 12-28-2023 Alcohol intake Current drinker of alcohol (finding) [facility] Start: 05-12-2021 End: 08-16-2022 Alcohol intake [facility] Work Phone: Start: 08-01-2020 End: 05-11-2021 History SDOH Alcohol Frequency 3 [facility] Start: 08-01-2020 History SDOH Alcohol Std Drinks 98 [facility] Start: 08-01-2020 History SDOH Alcohol Binge 1 [facility] Start: 08-01-2020 History SDOH Social Connections Phone 2 [facility] Start: 08-01-2020 End: 05-17-2022 History SDOH Physical Activity MPS 4 [facility] Start: 08-01-2020 History SDOH Financial 5 [facility] Start: 08-01-2020 History SDOH Housing Places Lived 0 [facility] Start: 08-01-2020 Education 20 [facility] Start: 1940 Sex Assigned At Not on file [facility] Start: 04-26-2011 End: 11-09-2021 Tobacco use and exposure Smokeless tobacco non-user [facility] Work Phone: Start: 08-16-2022 End: 11-22-2022 Tobacco use panel [facility] Work Phone: National Score (1-10 0), lower number is lower risk 60 [facility] Do you belong to any clubs or organizations such as jewish groups, unions, fraternal or athletic groups, or school groups? No [facility] Are you now , , , , never or living with a partner? [facility] How often to you hav e a drink containing alcohol? 2-4 times a month [facility] How often do you hav e 6 or more drinks on 1 occasion? Never [facility] Do you feel stress - tense, restless, nervous, or anxious, or unable to sleep at night because your mind is troubled all the time - these days [OSQ] Not at all [facility] (I/We) worried wheth er (my/our) food would run out before (I/we) got money to buy more. Never true [facility] Functional Status Date Assessment Result Facility 06-01-2023 Are you deaf, or do you have serious difficulty hearing No 06/01/2023 12:43 PM Dolores Campos, TAL No [facility] 06-01-2023 Are you blind, or do you have serious difficulty seeing, even when wearing glasses No 06/01/2023 12:43 PM Dolores Campos, TAL No [facility] 06-01-2023 Do you have serious difficulty walking or climbing stairs No 06/01/2023 12:43 PM Dolores Campos, TAL No [facility] 06-01-2023 Do you have difficul ty dressing or bathing No 06/01/2023 12:43 PM Dolores Campos, RN No [facility] 06-01-2023 Because of a physica l, mental, or emotional condition, do you have difficulty doing errands alone such as visiting a physician's office or shopping No 06/01/2023 12:43 PM Dolores Campos, RN No [facility] Mental Status Date Assessment Result Facility 06-01-2023 Because of a physica l, mental, or emotional condition, do you have serious difficulty concentrating, remembering, or making decisions No 06/01/2023 12:43 PM Dolores Campos, RN No [facility] Clinical Notes 02-22-2012 to 07-27-2024 Telephone Encounter - Giovanni Persaud MD - 07/27/2024 9:33 AM EDTTelephone Encounter - Giovanni Persaud MD - 07/27/2024 9:33 AM EDTGiovnani Persaud MD - 05/23/2024 8:41 AM EST Note Date & Type Note [facility] 07-27-2024 Telephone encounter Note The following approved medication requests have been transmitted electronically. Requested Prescriptions Signed Prescriptions Disp Refills gabapentin (NEURONTIN) 300 mg capsule 90 capsule 1 Sig: Take 1 capsule by mouth once daily for 180 days. Patient should start on August 09, 2024. Giovanni Persaud MD [facility] 07-27-2024 Miscellaneous Notes The following approved medication requests have been transmitted electronically. Requested Prescriptions Signed Prescriptions Disp Refills gabapentin (NEURONTIN) 300 mg capsule 90 capsule 1 Sig: Take 1 capsule by mouth once daily for 180 days. Patient should start on August 09, 2024. Giovanni Persaud MD documented in this encounter [facility] 07-25-2024 Telephone encounter Note Patient active MyChart. Patient notified via [employer] message. Tanja Harman MA [facility] 07-25-2024 Miscellaneous Notes Patient active MyChart. Patient notified via [employer] message. Tanja Harman MA PDMP website checked and validated. Gabapentin is being prescribed by a doctor in [place]. Patient should discuss this concern with that prescribing physician. 07/24/2024 by Giovanni Persaud MD Henrik understood to take Gabapentin as written, when he does have a flare-up of Trigeminal pain Patient can take 1 extra tablet through the day, he has been having flare-ups. Take medication at bedtime and it helps him to sleep better. Phyllis Cintron LPN We had discussed dose reduction last year. What pain is worse? When did this pain start getting worse? Patient calling asking to have Gabapentin 300 mg changed, he has been taking the medication twice daily. [facility] will not refill his rx for another 20 days since rx only says take once daily. Patient said PCP told him some time ago he could take 2 daily. Could not find any mention in office notes. Patient said when his pain is worse he takes 2 daily. Please advise documented in this encounter [facility] 07-24-2024 Telephone encounter Note PDMP website checked and validated. Gabapentin is being prescribed by a doctor in [place]. Patient should discuss this concern with that prescribing physician. 07/24/2024 by Giovanni Persaud MD [facility] 07-24-2024 Telephone encounter Note Henrik understood to take Gabapentin as written, when he does have a flare-up of Trigeminal pain Patient can take 1 extra tablet through the day, he has been having flare-ups. Take medication at bedtime and it helps him to sleep better. Phyllis Cintron LPN [facility] 07-24-2024 Telephone encounter Note We had discussed dose reduction last year. What pain is worse? When did this pain start getting worse? [facility] 07-24-2024 Telephone encounter Note Patient calling asking to have Gabapentin 300 mg changed, he has been taking the medication twice daily. [facility] will not refill his rx for another 20 days since rx only says take once daily. Patient said PCP told him some time ago he could take 2 daily. Could not find any mention in office notes. Patient said when his pain is worse he takes 2 daily. Please advise [facility] 06-12-2024 Telephone encounter Note Patient has been identified by name and date of : Yes Patient phones for refill(s): Requested Prescriptions Pending Prescriptions Disp Refills fluticasone (FLONASE) 50 mcg/actuation nasal spray 1 Each 5 Sig: Use 2 Sprays in each nostril once daily. Rinse mouth after use. Date of last office visit in primary care: 05/23/2024 Date of next office visit in primary care: 11/21/2024 Please advise. Thank you. Phyllis Cintron LPN. T [facility] 06-12-2024 Miscellaneous Notes Patient has been identified by name and date of : Yes Patient phones for refill(s): Requested Prescriptions Pending Prescriptions Disp Refills fluticasone (FLONASE) 50 mcg/actuation nasal spray 1 Each 5 Sig: Use 2 Sprays in each nostril once daily. Rinse mouth after use. Date of last office visit in primary care: 05/23/2024 Date of next office visit in primary care: 11/21/2024 Please advise. Thank you. Phyllis Cintron LPN. documented in this encounter [facility] 05-23-2024 Note HNO ID: [id number] Author: GIOVANNI PERSAUD MD Service: ? Author Type: Physician Type: Progress Notes Filed: 05/23/2024 09:00 Note Text: This note was created using [employer]. Subjective Henrik Ma is a 83 year old male. He had no concerns. We reviewed his labs. He had chronic diarrhea since his gallbladder surgery, but this had resolved. Review of Systems Constitutional: Negative for fatigue and unexpected weight change. Respiratory: Negative for shortness of breath. Cardiovascular: Negative for chest pain and palpitations. Gastrointestinal: Negative for abdominal pain and diarrhea. Neurological: Negative for dizziness. ACTIVE PROBLEM LIST Esophageal Reflux Essential Hypertension, Benign Allergic Rhinitis Hyperlipidemia Trigeminal Neuralgia Actinic keratosis. Impotence of Organic Origin Other Seborrheic Keratosis Cad (Coronary Artery Disease) Ckd (Chronic Kidney Disease) Stage 3, Gfr 30-59 Ml/Min (Hcc) Bph With Obstruction/Lower Urinary Tract Symptoms Social History Tobacco Use Smoking status: Never Smokeless tobacco: Never Vaping Use Vaping status: Never Used Substance Use Topics Alcohol use: Yes Alcohol/week: 2.0 standard drinks of alcohol Types: 2 Cans of Beer (12oz) per week Drug use: No Current Outpatient Medications Medication Sig cyanocobalamin (VITAMIN B-12) 1,000 mcg tab Take 1,000 mcg by mouth once daily. pravastatin (PRAVACHOL) 40 mg tablet Take 1 tablet by mouth daily at bedtime. omeprazole (PRILOSEC) 20 mg capsule Take 1 capsule by mouth as needed. 1/2 hr before meal. tamsulosin (FLOMAX) 0.4 mg Take 1 capsule by mouth daily at bedtime. gabapentin (NEURONTIN) 300 mg capsule Take 1 capsule by mouth once daily. fluticasone (FLONASE) 50 mcg/actuation nasal spray Use 2 Sprays in each nostril once daily. Rinse mouth after use. sildenafil (REVATIO) 20 mg tablet Take 2-3 tablets by mouth once daily as needed (erectile dysfunction). multivitamin tablet Take 1 tablet by mouth [...] by mouth once daily. Take with food. senna-docusate (SENNA-S) 8.6-50 mg per tablet Take 1 tablet by mouth once daily as needed for constipation. (Patient not taking: Reported on 12/28/2023) No current facility-administered medications for this visit. Objective BP 120/64 (BP Site: Left Arm, BP Position: Sitting, BP Cuff Size: Large Adult) Pulse 64 Temp 36.5 ?C (97.7 ?F) (Temporal) Resp 16 Wt 84.3 kg (185 lb 13.6 oz) BMI 25.21 kg/m? Physical Exam Constitutional: Appearance: He is not ill-appearing. Cardiovascular: Rate and Rhythm: Normal rate and regular rhythm. Heart sounds: No murmur heard. No gallop. Pulmonary: Breath sounds: Normal breath sounds. Musculoskeletal: Right lower leg: No edema. Left lower leg: No edema. Neurological: Mental Status: He is alert. Latest Ref Rng 05/16/2024 WBC 3.70 - 11.00 k/uL 6.76 RBC 4.20 - 6.00 m/uL 4.74 Hemoglobin 13.0 - 17.0 g/dL 15.3 Hematocrit 39.0 - 51.0 % 44.8 MCV 80.0 - 100.0 fL 94.5 MCH 26.0 - 34.0 pg 32.3 MCHC 30.5 - 36.0 g/dL 34.2 RDW-CV 11.5 - 15.0 % 12.2 Platelet Count 150 - 400 k/uL 165 MPV 9.0 - 12.7 fL 12.2 Absolute nRBC <0.01 k/uL <0.01 Glucose 74 - 99 mg/dL 94 BUN 9 - 24 mg/dL 32 (H) Creatinine 0.73 - 1.22 mg/dL 1.30 (H) Sodium 136 - 144 mmol/L 142 Potassium 3.7 - 5.1 mmol/L 4.4 Chloride 98 - 107 mmol/L 105 CO2 22 - 30 mmol/L 25 Anion Gap 8 - 15 mmol/L 12 Calcium 8.5 - 10.2 mg/dL 9.6 eGFR >=60 mL/min/1.73m? 54 (L) Legend: (H) High (L) Low Assessment and Plan 1. Essential hypertension, benign - ICD9: 401.1, ICD10: I10 (primary diagnosis) - Controlled - Continue current medications 2. 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, unspecified vessel or lesion type - ICD9: 414.01, ICD10: I25.10 - [facility]. 3. Stage 3a chronic kidney disease (HCC) - ICD9: 585.3, ICD10: N18.31 - eGFR: 54 Stable - Counseled on avoiding NSAIDs, adequate hydration - BASIC METABOLIC PANEL 4. Diarrhea, unspecified type - ICD9: 787.91, ICD10: R19.7 - Resolved. Giovanni Persaud MD [facility] 05-23-2024 History of Presen t illness Narrative This note was created using [employer]. Subjective Henrik Ma is a 83 year old male. He had no concerns. We reviewed his labs. He had chronic diarrhea since his gallbladder surgery, but this had resolved. Review of Systems Constitutional: Negative for fatigue and unexpected weight change. Respiratory: Negative for shortness of breath. Cardiovascular: Negative for chest pain and palpitations. Gastrointestinal: Negative for abdominal pain and diarrhea. Neurological: Negative for dizziness. ACTIVE PROBLEM LIST Esophageal Reflux Essential Hypertension, Benign Allergic Rhinitis Hyperlipidemia Trigeminal Neuralgia Actinic keratosis. Impotence of Organic Origin Other Seborrheic Keratosis Cad (Coronary Artery Disease) Ckd (Chronic Kidney Disease) Stage 3, Gfr 30-59 Ml/Min ([facility]) Bph With Obstruction/Lower Urinary Tract Symptoms Social History Tobacco Use Smoking status: Never Smokeless tobacco: Never Vaping Use Vaping status: Never Used Substance Use Topics Alcohol use: Yes Alcohol/week: 2.0 standard drinks of alcohol Types: 2 Cans of Beer (12oz) per week Drug use: No Current Outpatient Medications Medication Sig cyanocobalamin (VITAMIN B-12) 1,000 mcg tab Take 1,000 mcg by mouth once daily. pravastatin (PRAVACHOL) 40 mg tablet Take 1 tablet by mouth daily at bedtime. omeprazole (PRILOSEC) 20 mg capsule Take 1 capsule by mouth as needed. 1/2 hr before meal. tamsulosin (FLOMAX) 0.4 mg Take 1 capsule by mouth daily at bedtime. gabapentin (NEURONTIN) 300 mg capsule Take 1 capsule by mouth once daily. fluticasone (FLONASE) 50 mcg/actuation nasal spray Use 2 Sprays in each nostril once daily. Rinse mouth after use. sildenafil (REVATIO) 20 mg tablet Take 2-3 tablets by mouth once daily as needed (erectile dysfunction). multivitamin tablet Take 1 tablet by mouth [...] by mouth once daily. Take with food. senna-docusate (SENNA-S) 8.6-50 mg per tablet Take 1 tablet by mouth once daily as needed for constipation. (Patient not taking: Reported on 12/28/2023) No current facility-administered medications for this visit. Objective BP 120/64 (BP Site: Left Arm, BP Position: Sitting, BP Cuff Size: Large Adult) Pulse 64 Temp 36.5 C (97.7 F) (Temporal) Resp 16 Wt 84.3 kg (185 lb 13.6 oz) BMI 25.21 kg/m Physical Exam Constitutional: Appearance: He is not ill-appearing. Cardiovascular: Rate and Rhythm: Normal rate and regular rhythm. Heart sounds: No murmur heard. No gallop. Pulmonary: Breath sounds: Normal breath sounds. Musculoskeletal: Right lower leg: No edema. Left lower leg: No edema. Neurological: Mental Status: He is alert. Latest Ref Rng 05/16/2024 WBC 3.70 - 11.00 k/uL 6.76 RBC 4.20 - 6.00 m/uL 4.74 Hemoglobin 13.0 - 17.0 g/dL 15.3 Hematocrit 39.0 - 51.0 % 44.8 MCV 80.0 - 100.0 fL 94.5 MCH 26.0 - 34.0 pg 32.3 MCHC 30.5 - 36.0 g/dL 34.2 RDW-CV 11.5 - 15.0 % 12.2 Platelet Count 150 - 400 k/uL 165 MPV 9.0 - 12.7 fL 12.2 Absolute nRBC <0.01 k/uL <0.01 Glucose 74 - 99 mg/dL 94 BUN 9 - 24 mg/dL 32 (H) Creatinine 0.73 - 1.22 mg/dL 1.30 (H) Sodium 136 - 144 mmol/L 142 Potassium 3.7 - 5.1 mmol/L 4.4 Chloride 98 - 107 mmol/L 105 CO2 22 - 30 mmol/L 25 Anion Gap 8 - 15 mmol/L 12 Calcium 8.5 - 10.2 mg/dL 9.6 eGFR >=60 mL/min/1.73m 54 (L) Legend: (H) High (L) Low Assessment and Plan 1. Essential hypertension, benign - ICD9: 401.1, ICD10: I10 (primary diagnosis) - Controlled - Continue current medications 2. 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, unspecified vessel or lesion type - ICD9: 414.01, ICD10: I25.10 - Stable and [facility] by [facility]. 3. Stage 3a chronic kidney disease (HCC) - ICD9: 585.3, ICD10: N18.31 - eGFR: 54 Stable - Counseled on avoiding NSAIDs, adequate hydration - BASIC METABOLIC PANEL 4. Diarrhea, unspecified type - ICD9: 787.91, ICD10: R19.7 - Resolved. Giovanni Persaud MD documented in this encounter [facility] 01-10-2024 Telephone encounter Note Prescription Refill Information The patient has been identified by name and date of : Yes Caregiver verified no other encounters exist for this prescription request: Yes Caregiver confirmed with patient/requestor that no other refills are due, in the near future, with this provider at this time: Yes The last office visit in the department: 12/28/2023 Does the patient have a future office visit with this provider/department: Yes Requested Prescriptions Pending Prescriptions Disp Refills pravastatin (PRAVACHOL) 40 mg tablet 90 tablet 3 Sig: Take 1 tablet by mouth daily at bedtime. Son Biggs MA January 10, 2024 10:40 AM [facility] 01-10-2024 Miscellaneous Notes Prescription Refill Information The patient has been identified by name and date of : Yes Caregiver verified no other encounters exist for this prescription request: Yes Caregiver confirmed with patient/requestor that no other refills are due, in the near future, with this provider at this time: Yes The last office visit in the department: 12/28/2023 Does the patient have a future office visit with this provider/department: Yes Requested Prescriptions Pending Prescriptions Disp Refills pravastatin (PRAVACHOL) 40 mg tablet 90 tablet 3 Sig: Take 1 tablet by mouth daily at bedtime. Son Biggs MA January 10, 2024 10:40 AM documented in this encounter [facility] 01-01-2024 Telephone encounter Note Lab is needing a new order for Patient. Phyllis Cintron LPN [facility] 01-01-2024 Miscellaneous Notes Lab is needing a new order for Patient. Phyllis Cintron LPN documented in this encounter [facility] 12-28-2023 Note HNO ID: [id number] Author: GIOVANNI PERSAUD MD Service: ? Author Type: Physician Type: Progress Notes Filed: 12/28/2023 14:30 Note Text: This note was created using [employer]. Subjective Henrik Ma is a 83 year old male. Since his GB surgery in May, he's noted a 2nd bowel movement after the 1st morning normal BM associated with gas, and loose. Other symptoms were bloating. He had been losing weight intentionally for more than one year, but was concerned about some other process. His last colonoscopy was normal in 2013. His diarrhea had actually been gradually decreasing. Review of Systems Constitutional: Positive for unexpected weight change. Negative for appetite change, diaphoresis, fatigue and fever. Gastrointestinal: Negative for abdominal distention, abdominal pain, blood in stool, constipation, nausea and vomiting. ACTIVE PROBLEM LIST Esophageal Reflux Essential Hypertension, Benign Allergic Rhinitis Hyperlipidemia Trigeminal Neuralgia Actinic keratosis. Impotence of Organic Origin Other Seborrheic Keratosis Cad (Coronary Artery Disease) Ckd (Chronic Kidney Disease) Stage 3, Gfr 30-59 Ml/Min ([facility]) Bph With Obstruction/Lower Urinary Tract Symptoms Social History Tobacco Use Smoking status: Never Smokeless tobacco: Never Vaping Use Vaping status: Never Used Substance Use Topics Alcohol use: Yes Alcohol/week: 2.0 standard drinks of alcohol Types: 2 Cans of Beer (12oz) per week Drug use: No Current Outpatient Medications Medication Sig omeprazole (PRILOSEC) 20 mg capsule Take 1 capsule by mouth as needed. 1/2 hr before meal. tamsulosin (FLOMAX) 0.4 mg Take 1 capsule by mouth daily at bedtime. gabapentin (NEURONTIN) 300 mg capsule Take 1 capsule by mouth once daily. fluticasone (FLONASE) 50 mcg/actuation nasal spray Use 2 Sprays in each nostril once daily. Rinse mouth after use. (Patient taking differently: Use 2 Sprays in each nostril once daily. Rinse mouth after use. - use in spring) sildenafil (REVATIO) 20 mg tablet Take 2-3 tablets by mouth once daily as needed (erectile dysfunction). pravastatin (PRAVACHOL) 40 mg tablet Take 1 tablet by mouth daily at bedtime. multivitamin tablet Take 1 tablet by mouth [...] by mouth once daily. Take with food. senna-docusate (SENNA-S) 8.6-50 mg per tablet Take 1 tablet by mouth once daily as needed for constipation. (Patient not taking: Reported on 12/28/2023) No current facility-administered medications for this visit. Objective BP 126/64 (BP Site: Left Arm, BP Position: Sitting, BP Cuff Size: Large Adult) Pulse 60 Temp 36.1 ?C (97 ?F) (Temporal) Resp 16 Wt 82.5 kg (181 lb 14.1 oz) BMI 24.67 kg/m? Physical Exam Constitutional: Appearance: Normal appearance. Abdominal: General: Abdomen is flat. Bowel sounds are normal. Palpations: Abdomen is soft. There is no mass. Tenderness: There is no abdominal tenderness. Neurological: Mental Status: He is alert. Assessment and Plan 1. Diarrhea, unspecified type - ICD9: 787.91, ICD10: R19.7 Chronic. Stools generally not liquid but loose. C difficile less likely. Increase dietary fiber. Clinically this is consistent with post cholecystectomy diarrhea. - COMPLETE BLOOD COUNT - BASIC METABOLIC PANEL - FECAL LACTOFERRIN/LEUKOCYTES Giovanni Persaud MD [facility] 12-28-2023 History of Presen t illness Narrative This note was created using [employer]. Subjective Henrik Ma is a 83 year old male. Since his GB surgery in May, he's noted a 2nd bowel movement after the 1st morning normal BM associated with gas, and loose. Other symptoms were bloating. He had been losing weight intentionally for more than one year, but was concerned about some other process. His last colonoscopy was normal in 2013. His diarrhea had actually been gradually decreasing. Review of Systems Constitutional: Positive for unexpected weight change. Negative for appetite change, diaphoresis, fatigue and fever. Gastrointestinal: Negative for abdominal distention, abdominal pain, blood in stool, constipation, nausea and vomiting. ACTIVE PROBLEM LIST Esophageal Reflux Essential Hypertension, Benign Allergic Rhinitis Hyperlipidemia Trigeminal Neuralgia Actinic keratosis. Impotence of Organic Origin Other Seborrheic Keratosis Cad (Coronary Artery Disease) Ckd (Chronic Kidney Disease) Stage 3, Gfr 30-59 Ml/Min ([facility]) Bph With Obstruction/Lower Urinary Tract Symptoms Social History Tobacco Use Smoking status: Never Smokeless tobacco: Never Vaping Use Vaping status: Never Used Substance Use Topics Alcohol use: Yes Alcohol/week: 2.0 standard drinks of alcohol Types: 2 Cans of Beer (12oz) per week Drug use: No Current Outpatient Medications Medication Sig omeprazole (PRILOSEC) 20 mg capsule Take 1 capsule by mouth as needed. 1/2 hr before meal. tamsulosin (FLOMAX) 0.4 mg Take 1 capsule by mouth daily at bedtime. gabapentin (NEURONTIN) 300 mg capsule Take 1 capsule by mouth once daily. fluticasone (FLONASE) 50 mcg/actuation nasal spray Use 2 Sprays in each nostril once daily. Rinse mouth after use. (Patient taking differently: Use 2 Sprays in each nostril once daily. Rinse mouth after use. - use in spring) sildenafil (REVATIO) 20 mg tablet Take 2-3 tablets by mouth once daily as needed (erectile dysfunction). pravastatin (PRAVACHOL) 40 mg tablet Take 1 tablet by mouth daily at bedtime. multivitamin tablet Take 1 tablet by mouth [...] by mouth once daily. Take with food. senna-docusate (SENNA-S) 8.6-50 mg per tablet Take 1 tablet by mouth once daily as needed for constipation. (Patient not taking: Reported on 12/28/2023) No current facility-administered medications for this visit. Objective BP 126/64 (BP Site: Left Arm, BP Position: Sitting, BP Cuff Size: Large Adult) Pulse 60 Temp 36.1 C (97 F) (Temporal) Resp 16 Wt 82.5 kg (181 lb 14.1 oz) BMI 24.67 kg/m Physical Exam Constitutional: Appearance: Normal appearance. Abdominal: General: Abdomen is flat. Bowel sounds are normal. Palpations: Abdomen is soft. There is no mass. Tenderness: There is no abdominal tenderness. Neurological: Mental Status: He is alert. Assessment and Plan 1. Diarrhea, unspecified type - ICD9: 787.91, ICD10: R19.7 Chronic. Stools generally not liquid but loose. C difficile less likely. Increase dietary fiber. Clinically this is consistent with post cholecystectomy diarrhea. - COMPLETE BLOOD COUNT - BASIC METABOLIC PANEL - FECAL LACTOFERRIN/LEUKOCYTES Giovanni Persaud MD documented in this encounter [facility] 11-21-2023 Instructions Giovanni Persaud MD - 11/21/2023 9:23 AM EDT Tetanus booster (Tdap) at pharmacy. Covid booster when available. documented in this encounter [facility] 11-21-2023 Note HNO ID: [id number] Author: GIOVANNI PERSAUD MD Service: ? Author Type: Physician Type: Progress Notes Filed: 11/21/2023 09:39 Note Text: Henrik Ma is a 83 year old male here for a Medicare wellness visit. Medicare Health Risk Assessment General Health Good Exercise: Minutes/Day 40 min Exercise: Days/Week 4 days Alcohol: Daily Use 2-4 times a month Alcohol: Drinks/Day Patient does not drink Alcohol: 6 or more drinks Never Feel off balance No Concerns: Teeth/Dentures No Concerns: Sexual function Troubled by feelings None of the above Frequency: Eating healthy diet Nearly every day ADLs requiring help None of the above Safety precautions in home/vehicle Yes Smoke, vape, chews tobacco No Difficulty hearing No Difficulty seeing No Current Providers Specialists: I have reviewed specialist-related care of the patient in the medical record. Current care team: Patient Care Team: Giovanni Persaud MD as PCP - General Outside specialists seen: Dr. Lupillo Meyer - [employer] Dr. Berry Falk - Optometry. Dr. Francisco Ashraf - City Administrator Medical/Family history review Reviewed and updated problem list, medical/surgical/family/social history, medications, and allergies. Opioid use review Opioid Medications (last 90 days) No data to display Anxiety/Depression screening LA-7 Score: 0. Recommendation: no further intervention at this time Cognitive screening Mini Cog Score: 5 Cognitive screening reviewed and No further action needed (score 3-5). Functional Observation Was the patient's Timed Up AND Go test unsteady or ? 12 seconds? No Advance Care Planning Surrogate decision maker and/or advance care plan documented Measurements BP 122/68 (BP Site: Left Arm, BP Position: Sitting, BP Cuff Size: Large Adult) Pulse 60 Temp 36.2 ?C (97.1 ?F) (Temporal) Resp 12 Ht 182.9 cm (6') Wt 82.3 kg (181 lb 7 oz) BMI 24.61 kg/m? Vision Screening: Follows with optometry/ophthalmology Right: 20/70 Left: 20/ 70 Both: 20/40 Assessment/Plan Medicare annual wellness visit, subsequent (Z00.00) - Counseled on healthy diet and regular exercise - Fall avoidance information provided - Personalized prevention plan provided [facility] 11-21-2023 History of Presen t illness Narrative Images from the original note were not included. Henrik Ma is a 83 year old male here for a Medicare wellness visit. Medicare Health Risk Assessment General Health Good Exercise: Minutes/Day 40 min Exercise: Days/Week 4 days Alcohol: Daily Use 2-4 times a month Alcohol: Drinks/Day Patient does not drink Alcohol: 6 or more drinks Never Feel off balance No Concerns: Teeth/Dentures No Concerns: Sexual function Troubled by feelings None of the above Frequency: Eating healthy diet Nearly every day ADLs requiring help None of the above Safety precautions in home/vehicle Yes Smoke, vape, chews tobacco No Difficulty hearing No Difficulty seeing No Current Providers Specialists: I have reviewed specialist-related care of the patient in the medical record. Current care team: Patient Care Team: Giovanni Persaud MD as PCP - General Outside specialists seen: Dr. Lupilol Meyer - [employer] Dr. Berry Falk - Optometry. Dr. Francisco Ashraf - City Administrator Medical/Family history review Reviewed and updated problem list, medical/surgical/family/social history, medications, and allergies. Opioid use review Opioid Medications (last 90 days) No data to display Anxiety/Depression screening LA-7 Score: 0. Recommendation: no further intervention at this time Cognitive screening Mini Cog Score: 5 Cognitive screening reviewed and No further action needed (score 3-5). Functional Observation Was the patient's Timed Up & Go test unsteady or ? 12 seconds? No Advance Care Planning Surrogate decision maker and/or advance care plan documented Measurements BP 122/68 (BP Site: Left Arm, BP Position: Sitting, BP Cuff Size: Large Adult) Pulse 60 Temp 36.2 C (97.1 F) (Temporal) Resp 12 Ht 182.9 cm (6') Wt 82.3 kg (181 lb 7 oz) BMI 24.61 kg/m Vision Screening: Follows with optometry/ophthalmology Right: 20/70 Left: 20/ 70 Both: 20/40 Assessment/Plan Medicare annual wellness visit, subsequent (Z00.00) - Counseled on healthy diet and regular exercise - Fall avoidance information provided - Personalized prevention plan provided This note was created using [employer]. Subjective Henrik Ma is a 83 year old male. He was doing well. In spring he was admitted for acalculous cholecystitis and pneumonia. His coronary artery disease, hypertension, and lipids were controlled. Trigeminal neuralgia was controlled with dysesthesias of the right nasal area several months ago. 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 Review of Systems Constitutional: Negative for appetite change, fatigue and unexpected weight change. Respiratory: Negative for cough, chest tightness and shortness of breath. Cardiovascular: Negative for chest pain, palpitations and leg swelling. Gastrointestinal: Negative for abdominal pain, constipation, diarrhea, nausea and vomiting. Genitourinary: Negative for difficulty urinating and dysuria. Neurological: Negative for dizziness and headaches. ACTIVE PROBLEM LIST Esophageal Reflux Essential Hypertension, Benign Allergic Rhinitis Hyperlipidemia Trigeminal Neuralgia Actinic keratosis. Impotence of Organic Origin Other Seborrheic Keratosis Cad (Coronary Artery Disease) Ckd (Chronic Kidney Disease) Stage 3, Gfr 30-59 Ml/Min ([facility]) Bph With Obstruction/Lower Urinary Tract Symptoms Social History Tobacco Use Smoking status: Never Smokeless tobacco: Never Vaping Use Vaping status: Never Used Substance Use Topics Alcohol use: Yes Alcohol/week: 2.0 standard drinks of alcohol Types: 2 Cans of Beer (12oz) per week Drug use: No Current Outpatient Medications Medication Sig omeprazole (PRILOSEC) 20 mg capsule Take 1 capsule by mouth as needed. 1/2 hr before meal. tamsulosin (FLOMAX) 0.4 mg Take 1 capsule by mouth daily at bedtime. gabapentin (NEURONTIN) 300 mg capsule Take 1 capsule by mouth once daily. senna-docusate (SENNA-S) 8.6-50 mg per tablet Take 1 tablet by mouth once daily as needed for constipation. sildenafil (REVATIO) 20 mg tablet Take 2-3 tablets by mouth once daily as needed (erectile dysfunction). pravastatin (PRAVACHOL) 40 mg tablet Take 1 tablet by mouth daily at bedtime. multivitamin tablet Take 1 tablet by mouth [...] by mouth once daily. Take with food. acetaminophen (TYLENOL) 325 mg tablet Take 2 tablets by mouth four times daily. (Patient not taking: Reported on 11/21/2023) fluticasone (FLONASE) 50 mcg/actuation nasal spray Use 2 Sprays in each nostril once daily. Rinse mouth after use. (Patient taking differently: Use 2 Sprays in each nostril once daily. Rinse mouth after use. - use in spring) No current facility-administered medications for this visit. Objective BP 122/68 (BP Site: Left Arm, BP Position: Sitting, BP Cuff Size: Large Adult) Pulse 60 Temp 36.2 C (97.1 F) (Temporal) Resp 12 Ht 182.9 cm (6') Wt 82.3 kg (181 lb 7 oz) BMI 24.61 kg/m Physical Exam Constitutional: General: He is not in acute distress. Appearance: He is not ill-appearing. HENT: Head: Normocephalic. Eyes: General: No scleral icterus. Conjunctiva/sclera: Conjunctivae normal. Cardiovascular: Rate and Rhythm: Normal rate and regular rhythm. Heart sounds: No murmur heard. No gallop. Pulmonary: Effort: No respiratory distress. Breath sounds: No wheezing or rales. Abdominal: Palpations: Abdomen is soft. Tenderness: There is no abdominal tenderness. Musculoskeletal: Right lower leg: No edema. Left lower leg: No edema. Lymphadenopathy: Cervical: No cervical adenopathy. Neurological: General: No focal deficit present. Mental Status: He is alert. Gait: Gait normal. Latest Ref Rng 11/14/2023 Protein, Total 6.3 - 8.0 g/dL 6.8 Albumin 3.9 - 4.9 g/dL 4.0 Calcium 8.5 - 10.2 mg/dL 9.5 Bilirubin, Total 0.2 - 1.3 mg/dL 1.6 (H) Alkaline Phosphatase 38 - 113 U/L 81 AST 14 - 40 U/L 28 ALT 10 - 54 U/L 20 Glucose 74 - 99 mg/dL 93 BUN 9 - 24 mg/dL 25 (H) Creatinine 0.73 - 1.22 mg/dL 1.19 Sodium 136 - 144 mmol/L 142 Potassium 3.7 - 5.1 mmol/L 3.9 Chloride 98 - 107 mmol/L 105 CO2 22 - 30 mmol/L 26 Anion Gap 8 - 15 mmol/L 11 eGFR >=60 mL/min/1.73m 60 Cholesterol, Total <200 mg/dL 128 Triglyceride <150 mg/dL 115 HDL Cholesterol >39 mg/dL 41 Non HDL Cholesterol <130 mg/dL 87 Fasting Time hrs 12 VLDL Cholesterol <30 mg/dL 23 TC:HDL Ratio <5.10 3.12 LDL Cholesterol <100 mg/dL 64 LDL:HDL Ratio <2.54 1.56 Legend: (H) High Assessment and Plan 1. Medicare annual wellness visit, subsequent - ICD9: V70.0, ICD10: Z00.00 (primary diagnosis) - see wellness note. 2. Encounter for screening examination for other mental health and behavioral disorders - ICD9: V79.8, ICD10: Z13.39 Negative. - ANXIETY SCREENING 3. Screening for depression - ICD9: V79.0, ICD10: Z13.31 Negative. - DEPRESSION SCREENING 4. Essential hypertension, benign - ICD9: 401.1, ICD10: I10 - Controlled - Continue current medications 5. Other hyperlipidemia - ICD9: 272.4, ICD10: E78.49 - Controlled. - Continue medication. 6. Trigeminal neuralgia - ICD9: 350.1, ICD10: G50.0 - Controlled. Option of gabapentin dose reduction was discussed. 7. 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, unspecified vessel or lesion type - ICD9: 414.01, ICD10: I25.10 - Stable. [facility]. 8. Need for vaccination - ICD9: V05.9, ICD10: Z23 - PNEUMOCOCCAL VACCINE, 20 VALENT (PREVNAR 20) 9. Anemia, unspecified type - ICD9: 285.9, ICD10: D64.9 Post op. Recheck at next draw. - COMPLETE BLOOD COUNT 10. Stage 3a chronic kidney disease (HCC) - ICD9: 585.3, ICD10: N18.31 - eGFR: 60 Improving - Counseled on avoiding NSAIDs, adequate hydration - BASIC METABOLIC PANEL Giovanni Persaud MD documented in this encounter [facility] 11-21-2023 Note HNO ID: [id number] Author: GIOVANNI PERSAUD MD Service: ? Author Type: Physician Type: Progress Notes Filed: 11/21/2023 09:39 Note Text: This note was created using [employer]. Subjective Henrik Ma is a 83 year old male. He was doing well. In spring he was admitted for acalculous cholecystitis and pneumonia. His coronary artery disease, hypertension, and lipids were controlled. Trigeminal neuralgia was controlled with dysesthesias of the right nasal area several months ago. 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 Review of Systems Constitutional: Negative for appetite change, fatigue and unexpected weight change. Respiratory: Negative for cough, chest tightness and shortness of breath. Cardiovascular: Negative for chest pain, palpitations and leg swelling. Gastrointestinal: Negative for abdominal pain, constipation, diarrhea, nausea and vomiting. Genitourinary: Negative for difficulty urinating and dysuria. Neurological: Negative for dizziness and headaches. ACTIVE PROBLEM LIST Esophageal Reflux Essential Hypertension, Benign Allergic Rhinitis Hyperlipidemia Trigeminal Neuralgia Actinic keratosis. Impotence of Organic Origin Other Seborrheic Keratosis Cad (Coronary Artery Disease) Ckd (Chronic Kidney Disease) Stage 3, Gfr 30-59 Ml/Min ([facility]) Bph With Obstruction/Lower Urinary Tract Symptoms Social History Tobacco Use Smoking status: Never Smokeless tobacco: Never Vaping Use Vaping status: Never Used Substance Use Topics Alcohol use: Yes Alcohol/week: 2.0 standard drinks of alcohol Types: 2 Cans of Beer (12oz) per week Drug use: No Current Outpatient Medications Medication Sig omeprazole (PRILOSEC) 20 mg capsule Take 1 capsule by mouth as needed. 1/2 hr before meal. tamsulosin (FLOMAX) 0.4 mg Take 1 capsule by mouth daily at bedtime. gabapentin (NEURONTIN) 300 mg capsule Take 1 capsule by mouth once daily. senna-docusate (SENNA-S) 8.6-50 mg per tablet Take 1 tablet by mouth once daily as needed for constipation. sildenafil (REVATIO) 20 mg tablet Take 2-3 tablets by mouth once daily as needed (erectile dysfunction). pravastatin (PRAVACHOL) 40 mg tablet Take 1 tablet by mouth daily at bedtime. multivitamin tablet Take 1 tablet by mouth [...] by mouth once daily. Take with food. acetaminophen (TYLENOL) 325 mg tablet Take 2 tablets by mouth four times daily. (Patient not taking: Reported on 11/21/2023) fluticasone (FLONASE) 50 mcg/actuation nasal spray Use 2 Sprays in each nostril once daily. Rinse mouth after use. (Patient taking differently: Use 2 Sprays in each nostril once daily. Rinse mouth after use. - use in spring) No current facility-administered medications for this visit. Objective BP 122/68 (BP Site: Left Arm, BP Position: Sitting, BP Cuff Size: Large Adult) Pulse 60 Temp 36.2 ?C (97.1 ?F) (Temporal) Resp 12 Ht 182.9 cm (6') Wt 82.3 kg (181 lb 7 oz) BMI 24.61 kg/m? Physical Exam Constitutional: General: He is not in acute distress. Appearance: He is not ill-appearing. HENT: Head: Normocephalic. Eyes: General: No scleral icterus. Conjunctiva/sclera: Conjunctivae normal. Cardiovascular: Rate and Rhythm: Normal rate and regular rhythm. Heart sounds: No murmur heard. No gallop. Pulmonary: Effort: No respiratory distress. Breath sounds: No wheezing or rales. Abdominal: Palpations: Abdomen is soft. Tenderness: There is no abdominal tenderness. Musculoskeletal: Right lower leg: No edema. Left lower leg: No edema. Lymphadenopathy: Cervical: No cervical adenopathy. Neurological: General: No focal deficit present. Mental Status: He is alert. Gait: Gait normal. Latest Ref Rng 11/14/2023 Protein, Total 6.3 - 8.0 g/dL 6.8 Albumin 3.9 - 4.9 g/dL 4.0 Calcium 8.5 - 10.2 mg/dL 9.5 Bilirubin, Total 0.2 - 1.3 mg/dL 1.6 (H) Alkaline Phosphatase 38 - 113 U/L 81 AST 14 - 40 U/L 28 ALT 10 - 54 U/L 20 Glucose 74 - 99 mg/dL 93 BUN 9 - 24 mg/dL 25 (H) Creatinine 0.73 - 1.22 mg/dL 1.19 Sodium 136 - 144 mmol/L 142 Potassium 3.7 - 5.1 mmol/L 3.9 Chloride 98 - 107 mmol/L 105 CO2 22 - 30 mmol/L 26 Anion Gap 8 - 15 mmol/L 11 eGFR >=60 mL/min/1.73m? 60 Cholesterol, Total <200 mg/dL 128 Triglyceride <150 mg/dL 115 HDL Cholesterol >39 mg/dL 41 Non HDL Cholesterol <130 mg/dL 87 Fasting Time hrs 12 VLDL Cholesterol <30 mg/dL 23 TC:HDL Ratio <5.10 3.12 LDL Cholesterol <100 mg/dL 64 LDL:HDL Ratio <2.54 1.56 Legend: (H) High Assessment and Plan 1. Medicare annual wellness visit, subsequent - ICD9: V70.0, ICD10: Z00. (more content not included)... [facility] 08-28-2023 Telephone encounter Note Patient has been identified by name and date of : Yes Patient phones for refill(s): Requested Prescriptions Pending Prescriptions Disp Refills omeprazole (PRILOSEC) 20 mg capsule 90 capsule 1 Sig: Take 1 capsule by mouth daily before breakfast. 1/2 hr before meal. Date of last office visit in primary care: 05/25/2023 Date of next office visit in primary care: 11/21/2023 Please advise. Thank you. Thi Gregory MA. [facility] 08-28-2023 Miscellaneous Notes Patient has been identified by name and date of : Yes Patient phones for refill(s): Requested Prescriptions Pending Prescriptions Disp Refills omeprazole (PRILOSEC) 20 mg capsule 90 capsule 1 Sig: Take 1 capsule by mouth daily before breakfast. 1/2 hr before meal. Date of last office visit in primary care: 05/25/2023 Date of next office visit in primary care: 11/21/2023 Please advise. Thank you. Thi Gregory MA. documented in this encounter [facility] 08-14-2023 Telephone encounter Note Requested Prescriptions Pending Prescriptions Disp Refills tamsulosin (FLOMAX) 0.4 mg 90 capsule 3 Sig: Take 1 capsule by mouth daily at bedtime. Date of last office visit in primary care: 05/25/2023 Date of next office visit in primary care: 11/21/2023 Please advise. Thank you. Son Biggs MA. [facility] 08-14-2023 Miscellaneous Notes Requested Prescriptions Pending Prescriptions Disp Refills tamsulosin (FLOMAX) 0.4 mg 90 capsule 3 Sig: Take 1 capsule by mouth daily at bedtime. Date of last office visit in primary care: 05/25/2023 Date of next office visit in primary care: 11/21/2023 Please advise. Thank you. Son Biggs MA. documented in this encounter [facility] 06-19-2023 Note HNO ID: [id number] Author: JAUN LEBLANC MD Service: ? Author Type: Physician Type: Progress Notes Filed: 06/19/2023 11:15 Note Text: GENERAL SURGERY CLINIC PRIMARY CARE PHYSICIAN: Giovanni Persaud MD Subjective CHIEF COMPLAINT: s/p laparoscopic cholecystectomy HISTORY OF PRESENT ILLNESS: This is a 83 year old malepresenting for follow-up after a laparoscopic cholecystectomy 05/30/23. The patient reports good pain control, is tolerating diet, denies nausea or vomiting, has good bowel function. All questions were satisfactorily answered. PAST MEDICAL HISTORY Diagnosis Date ABNORMAL FINDINGS-LUNG FIELD 04/27/2006 Granulomas Allergic rhinitis, cause unspecified 04/05/2005 Seasonal, Spring CAD (coronary artery disease) 04/23/2012 Non STEMI, [facility] 2nd diagonal. 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 Unspecified cardiovascular disease mild CAD PAST [...] 04/24/2012 Transcath stent init vessel percut FAMILY HISTORY Problem Relation Age of Onset Cancer Mother ovarian cancer, age 101 None Father age 79 Arthritis Sister Essential Tremor Sister No Known Problems Sister Social History Tobacco Use Smoking status: Never Smokeless tobacco: Never Vaping Use Vaping Use: Never used Substance Use Topics Alcohol use: Yes Alcohol/week: 2.0 standard drinks of alcohol Types: 2 Cans of Beer (12oz) per week Drug use: No (Not in a hospital admission) No current facility-administered medications for this visit. ALLERGIES Allergen Reactions Cats Trees COMPLETE REVIEW OF SYSTEMS: As per HPI Objective PHYSICAL EXAM: BP 134/62 Pulse 67 Wt 185 lb 9.6 oz (84.2kg) SpO2 99% Physical Exam Performed GENERAL: Alert, no distress, cooperative HEENT: EOMI, normocephalic SKIN: Skin color, texture, turgor normal. LUNGS: Lungs clear to auscultation, Good diaphragmatic excursion CARDIAC: Rhythm: regular rate and rhythm, Rate: normal ABDOMEN: Soft, nontender and incisions clean, dry, intact. No erythema, no drainage. EXTREMITIES: Extremities normal, no deformities, edema, clubbing or skin discoloration. Good capillary refill. NEURO: Grossly normal cognition, motor function, and cranial nerves III-XII, Gait normal. Reflexes normal and symmetric. Sensation grossly intact PULSES: 2+ radial, 2+ carotid DATA: Diagnostic tests reviewed for today's visit: Pathology: A. Gallbladder, laparoscopic cholecystectomy: - Acute suppurative, calculus cholecystitis with ulceration and foci of hemorrhage and necrosis. 83 year old male s/p laparoscopic cholecystectomy 05/30/23 -Patient is doing well postoperatively. Steris removed in office -They can follow-up as needed or call office with questions or concerns -Diet as tolerated. Limited activity for 3-4 weeks Please Note: This office note has been created using [employer], a speech recognition software program, and may contain errors including punctuation, grammar, spelling, gender, and inappropriate words or phrases that pertain to the system. SIGNATURE: Jaun Leblanc MD PATIENT NAME: Henrik Ma DATE: June 18, 2023 TIME: 11:45 AM PAGER/CONTACT #: [facility] 06-19-2023 History of Presen t illness Narrative Images from the original note were not included. GENERAL SURGERY CLINIC PRIMARY CARE PHYSICIAN: Giovanni Persaud MD Subjective CHIEF COMPLAINT: s/p laparoscopic cholecystectomy HISTORY OF PRESENT ILLNESS: This is a 83 year old malepresenting for follow-up after a laparoscopic cholecystectomy 05/30/23. The patient reports good pain control, is tolerating diet, denies nausea or vomiting, has good bowel function. All questions were satisfactorily answered. PAST MEDICAL HISTORY Diagnosis Date ABNORMAL FINDINGS-LUNG FIELD 04/27/2006 Granulomas Allergic rhinitis, cause unspecified 04/05/2005 Seasonal, Spring CAD (coronary artery disease) 04/23/2012 Non STEMI, [facility] 2nd diagonal. 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 Unspecified cardiovascular disease mild CAD PAST [...] 04/24/2012 Transcath stent init vessel percut FAMILY HISTORY Problem Relation Age of Onset Cancer Mother ovarian cancer, age 101 None Father age 79 Arthritis Sister Essential Tremor Sister No Known Problems Sister Social History Tobacco Use Smoking status: Never Smokeless tobacco: Never Vaping Use Vaping Use: Never used Substance Use Topics Alcohol use: Yes Alcohol/week: 2.0 standard drinks of alcohol Types: 2 Cans of Beer (12oz) per week Drug use: No (Not in a hospital admission) No current facility-administered medications for this visit. ALLERGIES Allergen Reactions Cats Trees COMPLETE REVIEW OF SYSTEMS: As per HPI Objective PHYSICAL EXAM: BP 134/62 Pulse 67 Wt 185 lb 9.6 oz (84.2kg) SpO2 99% Physical Exam Performed GENERAL: Alert, no distress, cooperative HEENT: EOMI, normocephalic SKIN: Skin color, texture, turgor normal. LUNGS: Lungs clear to auscultation, Good diaphragmatic excursion CARDIAC: Rhythm: regular rate and rhythm, Rate: normal ABDOMEN: Soft, nontender and incisions clean, dry, intact. No erythema, no drainage. EXTREMITIES: Extremities normal, no deformities, edema, clubbing or skin discoloration. Good capillary refill. NEURO: Grossly normal cognition, motor function, and cranial nerves III-XII, Gait normal. Reflexes normal and symmetric. Sensation grossly intact PULSES: 2+ radial, 2+ carotid DATA: Diagnostic tests reviewed for today's visit: Pathology: A. Gallbladder, laparoscopic cholecystectomy: - Acute suppurative, calculus cholecystitis with ulceration and foci of hemorrhage and necrosis. 83 year old male s/p laparoscopic cholecystectomy 05/30/23 -Patient is doing well postoperatively. Steris removed in office -They can follow-up as needed or call office with questions or concerns -Diet as tolerated. Limited activity for 3-4 weeks Please Note: This office note has been created using [employer], a speech recognition software program, and may contain errors including punctuation, grammar, spelling, gender, and inappropriate words or phrases that pertain to the system. SIGNATURE: Jaun Leblanc MD PATIENT NAME: Henrik Ma DATE: June 18, 2023 TIME: 11:45 AM PAGER/CONTACT #: documented in this encounter [facility] 05-31-2023 Note HNO ID: [id number] Author: AARON MCKEON DO Service: Hospital Medicine Author Type: Physician Type: Progress Notes Filed: 05/31/2023 20:28 Note Text: INPATIENT PROGRESS NOTE SERVICE DATE: 05/31/2023 SERVICE TIME: 10:22 AM PRIMARY SERVICE: Hospitalist Subjective CHIEF COMPLAINT: Abdominal gas INTERVAL HPI: Pt feeling well overall, denies abdominal pain just some gassiness and has not had a bowel movement since before surgery, is tolerating the liquid diet, denies fevers/chills, or other symptoms. Current Facility-Administered Medications Medication Dose Route Frequency NaCl 0.9% iv flush bag 20 mL INTRAVENOUS PRN NaCl 0.9% iv infusion 100 mL/hr INTRAVENOUS CONTINUOUS aluminum-magnesium hydroxide-simethicone 200-200-20 mg/5 mL 30 mL 30 mL ORAL DAILY PRN ondansetron 4 mg tab(s) (ZOFRAN) 4 mg ORAL q 6 H PRN Or ondansetron (PF) 4 mg injection (ZOFRAN) 4 mg INTRAVENOUS q 6 H PRN melatonin 1 mg tab(s) 1 mg ORAL AT BEDTIME PRN benzonatate 200 mg cap(s) (TESSALON PERLE) 200 mg ORAL TID PRN azithromycin 500 mg in D5W 250 mL Vial-Bag (ZITHROMAX) 500 mg INTRAVENOUS DAILY piperacillin-tazobactam iv piggyback 3.375 g in dextrose (iso-osmotic) 50 mL (ZOSYN) 3.375 g INTRAVENOUS q 8 HR albuterol 2.5 mg /3 mL (0.083 %) 2.5 mg (PROVENTIL) 2.5 mg INHALATION q 4 H PRN morphine 4 mg injection 4 mg INTRAVENOUS q 4 H PRN oxyCODONE IR 5 mg tab(s) (ROXICODONE) 5 mg ORAL q 6 H PRN acetaminophen 650 mg tab(s) (TYLENOL) 650 mg ORAL QID ipratropium-albuterol 3 mL nebulizer solution (DUONEB) 3 mL INHALATION q 4 H PRN Objective PHYSICAL EXAM: BP 126/60 Pulse 80 Temp (Src) 98.7 (Axillary) Resp 18 Ht 6' 0 (1.83m) Wt 195 lb (88.5kg) SpO2 95% BMI 26.44 kg/(m2). O2 Therapy: Room Air Physical Exam Performed GENERAL: Alert, no distress, cooperative LUNGS: Lungs clear to auscultation, Good diaphragmatic excursion CARDIAC: Normal S1 and S2; no rubs, murmurs, or gallops ABDOMEN: Soft, nontender and laparoscopic surgical sutes intact without surrounding erythema or drainage EXTREMITIES: Extremities normal, no deformities, edema, clubbing or skin discoloration. Good capillary refill. NEURO: Grossly normal cognition, motor function, and cranial nerves III-XII DATA: Diagnostic tests reviewed for today's visit: Most recent labs and imaging results. Assessment/Plan Principal Problem: Acute cholecystitis (POA: Yes) Assessment AND Plan: General Surgery in room and I conferred with Dr. Leblanc wanting to keep pt overnight for more IV antibiotics and reassess once diet tolerated, which was advanced to gastrointestinal, will continue on zosyn for this, doubt pneumonia so azithromycin not necessary Active Problems: Esophageal reflux (POA: Yes) Assessment AND Plan: Expectant management of sx but may benefit from PPI or famotidine Essential hypertension, benign (POA: Yes) Assessment AND Plan: Metoprolol 50 mg po BID CKD (chronic kidney disease) stage 3, GFR 30-59 ml/min (HCC) (POA: Yes) Assessment AND Plan: avoid nephrotoxins, encourage continued hydration BPH Continue tamsulosin Disposition: General Surgery indicated needing 24 hours of antibiotics postop and can be home if tolerating diet and has bowel movement likely tomorrow Medication and Non-Pharmacologic VTE Prophylaxis/Anticoagulants 05/30/23 0245 activity - mobilize patient (pr,wy) VTE Prophylaxis: VTE prophylaxis appropriate SIGNATURE: Aaron Mckeon DO PATIENT NAME: Henrik Ma DATE: May 31, 2023 TIME: 10:31 AM [facility] 05-30-2023 Note HNO ID: [id number] Author: LAINE ALVA AA Service: ? Author Type: Road Traffic Controller Type: Anesthesia Procedure Notes Filed: 05/30/2023 18:56 Note Text: ANESTHESIOLOGY PROCEDURE NOTE Airway General Information Procedure Start Time/Medication Administration: 05/30/2023 6:44 PM Procedure End Time: 05/30/2023 6:44 PM Patient location during procedure: OR Timeout Performed Pre-procedure: timeout performed Consent Obtained: Yes Patient identity confirmed: arm band, care sample steamer and patient Staffing Anesthesiologist: Jaspreet Hughes MD CAA: Laine Alva AA CAA Student: Garland Honeycutt AA Student Performed by: anesthesiologist, TAMMY student and CAA Indications and Patient Condition Indications for airway management: anesthesia Preoxygenated: yes anesthesia circuit Patient position: sniffing Method: asleep Cricoid Pressure: No Manual In-Line Stabilization: No Difficult Mask: No Final Airway Details Final airway type: endotracheal airway Final Endotracheal Airway: ETT Cuffed: yes Successful intubation technique: video laryngoscopy Devices used: Blossom Endotracheal tube insertion site: oral Blade: William Blade size: #4 ETT size (mm): 7.5 Measured from: teeth Measurement (cm): 22 Placement verified by: chest auscultation and capnometry Cormack-Lehane Classification: grade I - full view of glottis Number of attempts at approach: 1 Failed airway: no Unrecognized esophageal intubation: no Airway not difficult Comments atraumatic SIGNATURE: DESIRAE Burch PATIENT NAME: Henrik Ma DATE: May 30, 2023 TIME: 6:55 PM CSN: [id number] [facility] 05-30-2023 Note HNO ID: [id number] Author: MUNIRA CABRALES RT(R) Service: ? Author Type: Technologist Type: Progress Notes Filed: 05/30/2023 15:38 Note Text: RADIOLOGY SERVICE PROGRESS NOTE SERVICE DATE: 05/30/2023 SERVICE TIME: 3:37 PM PATIENT IDENTITY VERIFICATION COMPLETED USING TWO (2) STANDARD IDENTIFIERS: Name and Date of confirmed by patient verbally FALL SCREENING: Has the patient had 2 falls in the last year or 1 fall with injury or currently using an Ambulatory Assistive Device (Walker, Cane, Wheelchair, Crutches, etc.)? No PATIENT GENDER DATA: .male : No ALLERGIES: Reviewed and unchanged MEDICATIONS REVIEWED: Not applicable PATIENT RELEVANT IMPLANT DATA REVIEWED: Not Applicable PATIENT PRESENTS WITH AN IMPLANTABLE OR ATTACHED BIOLOGY FACULTY MEMBER: No CREATININE: Creatinine Date Value Ref Range Status 05/30/2023 1.43 (H) 0.50 - 1.40 mg/dL Final Comment: Patients receiving either N-Acetylcysteine (NAC) or Metamizole prior to venipuncture, may have falsely depressed results. 05/18/2023 1.23 (H) 0.73 - 1.22 mg/dL Final 11/17/2022 1.23 (H) 0.73 - 1.22 mg/dL Final Estimated Glomerular Filtration Rate Date Value Ref Range Status 05/30/2023 48 (L) >=60 mL/min/1.73m? Final Comment: Estimated Glomerular Filtration Rate (eGFR) is calculated using the 2020 CKD-EPI creatinine equation. This equation utilizes serum creatinine, sex, and age as parameters. The creatinine assay has traceable calibration to isotope dilution-mass spectrometry. Refer to KDIGO guidelines for clinical interpretation. In patients with unstable renal function, e.g. those with acute kidney injury, the eGFR may not accurately reflect actual GFR. eGFR- Date Value Ref Range Status 05/13/2021 >60 Final P.O.C.T. RESULTS: N/A May 30, [address] PERFORMED: No IV SITE: Inpatient - refer to LDA documentation POST EXAM PIV STATUS: Inpatient see LDA documentation PROCEDURE TYPE: NM INJECT: hida scan. 5.0 mCi Tc99m CHOLETEC. No other medications given.. ADMINISTRATION TIME: 1350 PATIENT DISCHARGED TO: Patient taken to IP transport area for return to RNF/ICU/ED. A Diagnostic radioactive procedure has taken place, with no further precautions necessary other than routine body substance precautions. More information regarding radiation safety can be found using this link: [email or web address] SIGNATURE: RT Daisy(R) PATIENT NAME: Henrik Ma DATE: May 30, 2023 TIME: 3:37 PM PAGER/CONTACT #: [facility] 05-29-2023 Discharge summary Note Date/Time May 29, 2023 9:49am [facility] Medical Records Department [address] [place] [address] Emergency Department Summary 05/29/23 MR#: [id number] Acct: [id number] Name: HENRIK MA Rep #:[id number] : [id number] From: Best [place] MD PCP: Dr. Giovanni Persaud MD Status:R EG ER Location: ED HPI HPI - GI History of Present Illness Chief Complaint: Abd Pain Detail of Chief Complaint: Right upper quadrant abdominal pain that has migratedto the right and left Informant: patient Abdominal Pain/Flank Pain Onset: Days (Onset May 25.) Context: Sudden Onset Timing: Continuous (Initially he reports it to be constant. He now is not having pain.) Quality: - (Discomfort) Location: RLQ and LLQ Current Severity: Gone Maximum Severity: Moderate Worsened by: Movement Relieved by: Nothing Nausea/Vomiting/Emesis GI Symptom: Positive for Nausea Diarrhea/Melena/Hematochezia GI Symptom: Positive for - (Patient does report change in consistency and size of his stool over the past several weeks.); Negative for Diarrhea, Melena or Hematochezia Associated Symptoms Associated Symptoms: Positive for - (Patient denies any pain in his groin or inguinal area. He denies history of hernia.); Negative for Dysuria, Frequency, Hematuria or Urgency Narrative Narrative: Patient is an 83-year-old male. He presents with initially pain that was in theright upper quadrant right costal margin region that migrated to the right and left lower quadrant. He initially was in chair sitting next of his . At that time he had no discomfort. He denied radiation. He denied urologic symptoms. He denied fever, chills night sweats. He does report change in consistency and size of his stool recently. He denies night sweats or weight loss. Pain did start after he had a peanut butter jelly sandwich made by smokers and a peanut butter granola bar. He denies chest discomfort, shortness of breath, dyspnea on exertion. He deniesorthopnea or PND. Patient's had no abdominal surgery. There is no history of renal or ureteral lithiasis. Patient has not noted a rash. Movement of apparently precipitates it today. Of note patient is not a good informant. Prior similar symptoms: Yes (A while ago. States it was not as bad.) Recent Illness/Hospitalization: No PFSH PFS Medical History Atherosclerosis of coronary artery of kiowa tribe heart without angina pectoris Essential (primary) hypertension History of non-ST elevation myocardial infarction (NSTEMI) (04/24/12) HLD (hyperlipidemia) Home Medications aspirin 81 mg tablet,delayed release 81 mg PO DAILY 05/18/16 [History Last Taken Unknown] hydrochlorothiazide 12.5 mg capsule 12.5 mg PO DAILY 05/18/16 [History Last Taken Unknown] lisinopril 5 mg tablet 5 mg PO DAILY 05/18/16 [History Last Taken Unknown] omeprazole magnesium 20 mg tablet,delayed release 20 mg PO DAILY 05/18/16 [History Last Taken Unknown] fexofenadine 180 mg tablet (Allergy Relief (fexofenadine)) 180 mg PO DAILY 11/16/17 [History Last Taken Unknown] gabapentin 300 mg capsule 300 mg PO DAILY 11/16/17 [History Last Taken Unknown] tamsulosin 0.4 mg capsule 0.4 mg PO DAILY #90 caps 11/20/18 [History Last Taken Unknown] alpha lipoic acid 50 mg capsule 50 mg PO DAILY 11/21/19 [History Last Taken Unknown] glucosamine sulfate 500 mg tablet (Glucosamine) 1,000 mg PO DAILY 11/21/19 [History Last Taken Unknown] multivitamin 1 tab PO DAILY 11/21/19 [History Last Taken Unknown] sildenafil (pulm.hypertension) 20 mg tablet 20 mg PO DAILY PRN 11/21/19 [History Last Taken Unknown] antiarthritic combination no.2 900 mg tablet (glucosamine-chondroitin) 900 mg PODAILY 12/31/20 [History Last Taken Unknown] nitroglycerin 0.4 mg sublingual tablet 0.4 mg sublingual Q5-15M #25 tabs 10/26/21 [Rx Last Taken Unknown] fluticasone propionate 50 mcg/actuation nasal spray,suspension 2 spray intranasal DAILY PRN 12/30/21 [History Last Taken Unknown] omeprazole 20 mg capsule,delayed release 20 mg PO DAILY 12/30/21 [History Last Taken Unknown] clopidogrel 75 mg tablet See Rx Instructions .Route .COMPLEX #90 tabs 02/21/22 [Rx Last Taken Unknown] metoprolol tartrate 50 mg tablet 50 mg PO BID #180 tabs 04/28/22 [Rx Last Taken Unknown] pravastatin 40 mg tablet 40 mg PO DAILY #90 tabs 02/13/23 [Rx Last Taken Unknown] Allergy/AdvReac Type Severity Reaction Status Date / Time cat dander Allergy Anaphylaxis Verified 05/29/23 08:36 tree and shrub pollen Allergy Shortness Verified 05/29/23 08:36 of breath Family History Sister Diabetes Surgical History History of coronary artery stent placement (04/24/12) Social History (Updated 05/29/23 @ 09:[address] Best Orona MD) household members: spouse Smoking Status: Never smoker ROS ROS ED Constitutional Constitutional ED: Denies chills, fever(s), subjective or sweats ENT ENT ED: Denies ear pain, rhinorrhea or sore throat Cardiovascular Cardiovascular: Denies chest pain, orthopnea, palpitations or paroxysmal nocturnal dyspnea Respiratory/Chest Respiratory/Chest: Denies cough, dyspnea, dyspnea on exertion, orthopnea or paroxysmal nocturnal dyspnea Gastrointestinal Gastrointestinal: Reports abdominal pain and nausea; Denies constipation, diarrhea, melena or vomiting Genitourinary Genitourinary ED: Denies dysuria, hematuria or urinary frequency Musculoskeletal Musculoskeletal: Denies arthralgias, back pain, myalgias or neck pain Integumentary Denies rash Neurologic Neurologic: Denies paresthesias or weakness Psychiatric Psychiatric: Denies anxiety Hematologic/Lymphatic Hematologic/Lymphatic: Denies easy bleeding or easy bruising EXAM Physical Exam Const Vital Signs: 05/29/23 08:38 05/29/23 12:30 Temperature 97.1 F L Temperature Source Temporal Pulse Rate 80 78 Respiratory Rate 14 16 Blood Pressure 121/63 H 120/55 L Blood Pressure Mean 82 76 Pulse Ox 98 92 Oxygen Delivery Method Room Air Room Air Positive well nourished and well developed General Appearance ED: well developed, NAD and pallor HEENT Reports moist mucous membranes HEENT Narrative: Poor dentition. Posterior pharynx out erythema or exudate. normocephalic and atraumatic Eyes PERRL and EOMs intact bilaterally General Eye ED: Negative for pale conjunctiva or scleral icterus Neck no lymphadenopathy, supple and no JVD Resp normal respiratory effort and clear to auscultation bilaterally Cardio regular rate, regular rhythm, S1 normal heart sound, S2 normal heart sound and no murmurs GI no masses; Negative for non-tender or non-distended GI Narrative: There is slight tympany to percussion right upper and left upper quadrant. There is no shifting dullness or fluid wave. Bowel sounds are normal. There isno palpable or pulsatile mass. There is no abdominal bruit. Patient had area of discomfort right lateral aspect of the abdomen. This was not consistently reproducible. There is no inguinal lymphadenopathy or inguinal mass noted. Back/Spine no CVA tenderness Thoracic Spine / Upper Back: Negative for thoracic spinal tenderness Lumbar Spine / Lower Back: Negative for lumbar spinal tenderness Extremity full ROM General Extremety ED: Yes edema; Negative for tenderness General Extremity: edema Neuro CN's II-XII intact bilaterally, moves all extremities, no sensory deficits notedand gait normal Sensorium / Orientation: alert Psych Psych Narrative: Affect is flat. Skin no wounds General Skin Exam: pallor; Negative for jaundice Lesions: no lesions Rashes: no rashes MDM MDM MDM Narrative Medical decision making narrative: Differential diagnosis is abdominal pain of unknown etiology, biliary disease, obstipation, atypical presentation for appendicitis or cholecystitis. Will obtain CBC, competence of metabolic panel and UA to assess his symptoms since they are somewhat vague. Lab Data Attestation: I reviewed the patient's lab results. Lab results narrative: White count is elevated 18.4 thousand with shift. Indices are normal as well Terry&H. Since patient has vague abdominal pain with some mild discomfort in the right side with leukocytosis will obtain CT of the abdomen pelvis with IV contrast if BUN and creatinine are normal otherwise will obtain CT of the abdomen and pelvis without contrast. Labs: Laboratory Results - last 24 hr 05/29/23 05/29/23 09:20 11:49 WBC 18.4 H RBC 4.46 L Hgb 14.1 Hct 42.2 MCV 94.6 H MCH 31.6 MCHC 33.4 RDW Std Deviation 44.7 H RDW Coeff of Rachel 13.1 Plt Count 124 L MPV 12.1 H Immature Gran % (Auto) 1.000 H Neut % (Auto) 88.4 H Lymph % (Auto) 3.4 L [place] % (Auto) 6.9 Eos % (Auto) 0.0 Baso % (Auto) 0.3 Absolute Neuts (auto) 16.3 H Absolute Lymphs (auto) 0.62 L Nucleated RBC % 0 Sodium 136 Potassium 4.3 Chloride 107 Carbon Dioxide 25.0 Anion Gap 4 L BUN 27 H Creatinine 1.49 H Estim Creat Clear Calc 39.78 Est GFR (MDRD) Af Amer 58 L Est GFR (MDRD) Non-Af 48 L BUN/Creatinine Ratio 18.1 Glucose 175 H Calcium 9.5 Total Bilirubin 2.60 H AST 20 ALT 16 Alkaline Phosphatase 84 Total Protein 6.5 Albumin 2.7 L Globulin 3.8 Albumin/Globulin Ratio 0.7 L Urine Color Yellow Urine Clarity Sl. Cloudy Urine pH 5.0 Ur Specific [place] 1.020 Urine Protein 30 H Urine Glucose (UA) Normal Urine Ketones Negative Urine Occult Blood 50 H Urine Nitrite Negative Urine Bilirubin Negative Urine Urobilinogen Normal Ur Leukocyte Esterase 25 H Urine RBC 0-5 SEEN Urine WBC 0-5 SEEN Ur Squamous Epith Cells 0-5 SEEN Urine Bacteria 1+ Urine Mucus 0 SEEN Patient's creatinine is elevated 1.49. Since bilirubin is elevated and initially had right upper quadrant pain will obtain ultrasound of the gallbladder initially. If this does not delineate cause of patient's symptoms will obtain CT of the abdomen. Radiography Diagnostic Testing: Clinical Impression(s) from Imaging Studies Gallbladder Ultrasound 05/29/23 10:17 IMPRESSION: 1. Mild pericholecystic fluid without evidence of gallstones or biliary dilatation. 2. Hepatic steatosis. Electronically Signed: Reji Greene MD at 11:55 EST , Abdomen/Pelvis CT 05/29/23 13:03 IMPRESSION: 1. Right lower lobe infiltrate and atelectatic changes. Small right pleural effusion. 2. Dilated gallbladder with pericholecystic edema without evidence of gallstones. Correlation with gallbladder ultrasound might be of value. 3. Diverticulosis without evidence of acute diverticulitis. 4. Hepatic steatosis with heterogeneous inferior right lower lobe difficult to characterize at this time. 5. Enlarged prostate. Correlation with PSA level is recommended. Electronically Signed: Reji Greene MD at 13:48 EST , Ultrasound per my review reveals pericholecystic fluid. There is no stones noted. There is no thickening of the gallbladder wall. Common bile duct is within normal size. Awaiting formal read by radiologist. Management Discussion w/another healthcare provider: Content Management Specialist (Case was discussed with Dr. Wright. She requested a CAT scan and call back after CAT scan has been performed and interpreted.) Treatment and Re-Evaluation :: Radiologist interpretation was read. Since patient has a white count there is pericholecystic fluid the surgeon on-call Dr. Wright was paged. Will order Zosyn. Since patient has pericholecystic fluid and elevated white count. Dr. Wright informed me at 1350 the patient will need transfer since he is on Plavix and needs a tube placed. Apparently Dr. Moody the interventional radiologist is out for the entire week. Patient states she has been at [facility] in the past and had stents placed for his heart. will contact their transfer line. Since patient also has an infiltrate in the right lower lobe will order azithromycin for atypical coverage. Spoke with Antonieta at the [facility] transfer line. She states she will reach out to [facility]. Patient was accepted by Dr. Rosales at [facility]. Patient and were informed that there were no beds available at [facility] and that he would be transferred to [facility] which is affiliated with the [facility]. 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 Prescriptions: No Action fexofenadine [Allergy Relief (fexofenadine)] 180 mg tablet 180 mg PO DAILY gabapentin 300 mg capsule 300 mg PO DAILY tamsulosin 0.4 mg capsule 0.4 mg PO DAILY Qty: 90 sildenafil (pulm.hypertension) 20 mg tablet 20 mg PO DAILY PRN Patient Comments: take 2 to 3 tablets by mouth once daily if needed multivitamin Tablet 1 tab PO DAILY alpha lipoic acid 50 mg capsule 50 mg PO DAILY glucosamine sulfate [Glucosamine] 500 mg tablet 1,000 mg PO DAILY Rx Instructions: administer with meals glucosamine-chondroitin 900 mg tablet 900 mg PO DAILY omeprazole 20 mg capsule,delayed release(DR/EC) 20 mg PO DAILY fluticasone propionate 50 mcg/actuation spray,suspension 2 spray intranasal DAILY PRN aspirin 81 MG tablet,delayed release (DR/EC) 81 mg PO DAILY Patient Comments: heart health hydrochlorothiazide 12.5 MG capsule 12.5 mg PO DAILY Patient Comments: water pill/diuretic lisinopril 5 MG tablet 5 mg PO DAILY Patient Comments: blood pressure omeprazole magnesium 20 MG tablet,delayed release (DR/EC) 20 mg PO DAILY Patient Comments: acid reflux nitroglycerin 0.4 mg tablet, sublingual 0.4 mg SUBLINGUAL Q5-15M Qty: 25 3RF clopidogrel 75 mg tablet See Rx Instructions .ROUTE .COMPLEX Qty: 90 3RF Dose Instruction: TAKE 1 TABLET DAILY Rx Instructions: TAKE 1 TABLET DAILY metoprolol tartrate 50 mg tablet 50 mg PO BID Qty: 180 3RF pravastatin 40 mg tablet 40 mg PO DAILY Qty: 90 3RF Primary Care Provider: Giovanni Persaud Referrals: Giovanni Persaud MD [Primary Care Provider] - What to do if you have Problems For any increased pain, shortness of breath, bleeding, nausea or vomiting, chestpain, or any unexpected problems, contact your Primary Care Provider. Call [facility] ([phone]) or report to the closest Emergency Room. Call 911 if necessary. 05/29/23 1521 <Electronically signed by Best Orona MD> Cosigner Signature (if applicable): CC: Dr. Giovanni Persaud MD ~ Signed ADDENDUM by Dr. Ben Wright DO on 05/29/23 at 2100 Patient signed out to me pending transfer to [facility]. It has been over 6hours, I will reach back to the facility, reported there will be no beds this evening. He is being transferred for potential interventional radiology for hisa callus cholecystitis. He is due for his Zosyn which is ordered. I will speakwith hospitalist here for admission pending bed availability. 05/29/23 2100<Electronically signed by Ben Michel> Cosigner Signature (if applicable): cc: Dr. Giovanni Persaud MD ~* Signed ADDENDUM by Dr. Ben Wright DO on 05/29/23 at 2144 I respoke with covering surgeon Dr. Gómez, states there interventionalists assist therefore still recommended transfer. Initial discussion with the patient for potential transfer, however we receive callback from [facility] reportinga bed will be made available. 05/29/232143<Electronically signed by Ben Michel> Cosigner Signature (if applicable): cc: Dr. Giovanni Persaud MD ~* Signed [facility] Work Phone: 1(388) 115-294103-04-2024 History of Past illness Narrative* Problem Noted Date Diagnosed Date Resolved Date Acute cholecystitis 05/29/2023 06/01/19 24 Obstructive uropathy 08/01/2022 024 Hydronephrosis of left [...] as of this encounter (statuses as of 06/19/2023) [facility]02-29-2024 History of Present illness Narrative* Giovanni Persaud MD - 05/25/2023 9:00 AM EST This note was created using NoteWriter. Subjective Henrik Ma is a 82 year old male. He [...] Kidney Disease) Stage 3, Gfr 30-59 Ml/Min ([facility]) Bph With Obstruction/Lower Urinary Tract Symptoms Current [...] ICD9: 401.1, ICD10: I10 - Controlled Giovanni Persaud MD [facility] Miscellaneous Notes* Telephone Encounter - Son Biggs Ma - 02/27/2023 8:56 AM EST KYUNG: 11/23/2022 Last refill: 01/17/2022 QTY: 12 Refills: 2 [facility] Evaluation note* Diagnosis Stage 3a chronic kidney disease (HCC) documented in this encounter [facility]11-05-2023 Reason for referral (narrative)* Diagnostic Procedure Only (Routine) - Closed Specialty Diagnoses / Procedures Referred By Qian wren Referred To Contact US IMAGING Diagnoses Stage 3a chronic kidney disease (HCC) Procedures US KIDNEY/BLADDER US RETROPERITONEAL REAL TIME W/IMAGE COMPLETE Giovanni Persaud MD [address] [place] [address] [place] [id number] Referral ID Status Reason Start Date Expiration Date V isits Requested Visits Authorized [id number] Closed Auto-Generate d Referral 06/09/2022 07/09/2023 1 1 [facility]10-30-2023 Miscellaneous Notes* Telephone Encounter - Lilliam Sandhu OCCA - 01/23/2023 10:42 AM EDT Updated in immunization history. GAMA Chapman documented [facility] History of Present illness Narrative* Giovanni Persaud MD - 11/23/2022 8:47 AM EDT This note was created using [employer]. Subjective Henrik Ma is a 82 year old male. He [...] Kidney Disease) Stage 3, Gfr 30-59 Ml/Min ([facility]) Subluxation of Tarsometatarsal Joint of Right Foot [...] 56 Resp 12 Ht 179.3 cm (5' 10.6) Wt 84.7 kg (186 lb 12.8 oz) [...] - Controlled. 5. 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, unspecified vessel or [...] this screening test. - PSA/PROSTSPECAG SCRN Giovanni Persaud MD * Giovanni Persaud MD - 11/23/2022 8:42 AM EDT Henrik Ma is a 82 year old male here for a Medicare wellness visit. Health Risk Assessment In general, health is: Good Concerns with balance: Not at all Concerns with teeth or dentures:Not at all Concerns with sexual function: Not at all [place] anxious, stressed, angry, irritable, lonely, isolated, or [...] Current care team: Patient Care Team: Giovanni Persaud MD as PCP - General Outside specialists seen: Dr. Meyer - Diamond Powder Mixer Dr. Berry Falk - Optometry. Dr. Ashraf - City Administrator Dr. Esteban- ENT (nosebleed). Medical/Family history review [...] COVID-19 - Depression screening documented [facility]23 Miscellaneous Notes* Telephone Encounter - Son Biggs [...] pharmacy. Son Biggs Ma documented [facility] History of Past illness Narrative* Problem Noted Date Diagnosed Date Resolved Date Obstructive uropathy 08/01/2022 024 Hydronephrosis of left kidney 07/11/2022 05/25/2023 Subluxation of tarsometatars al joint of right foot 05/31/2017 05/25/2023 Overview: Dr. Wunning, DPM Irritated//Inflamed Seborrheic Keratosis 02/22/2012 01/22/2014 Actinic [...] of this encounter (statuses as of 05/25/2023) [facility]-08-2023 Miscellaneous Notes* Telephone Encounter - Son Biggs [...] pharmacy. Son Biggs Ma documented [facility]23 History of Present illness Narrative* aKrin Farmer RDMS - 06/30/2022 9:15 AM EDT Radiology Service Progress Note PATIENT NAME: Henrik Ma DATE OF SERVICE: June 30, 2022 TIME: [...] 30, 2022 9:24 AM documented in this [facility]23 History of Present illness Narrative* Giovanni Persaud MD - 06/09/2022 11:55 AM EDT This note was created using [employer]. Subjective Henrik Ma is a 82 year old male. His blood pressure was staying controlled off hydrochlorothiazide. We reviewed his renal function. Review of Systems Constitutional: Negative. Genitourinary: Negative. Neurological: Negative. ACTIVE PROBLEM LIST Esophageal Reflux Essential Hypertension, Benign Allergic Rhinitis Hyperlipidemia Trigeminal Neuralgia Actinic keratosis. Impotence of Organic Origin Other Seborrheic Keratosis Cad (Coronary Artery Disease) Ckd (Chronic Kidney Disease) Stage 3, Gfr 30-59 Ml/Min ([facility]) Subluxation of Tarsometatarsal Joint of Right Foot [...] medication(s) - Goal of BP <130/80 Giovanni Persaud MD documented [facility]2023 Evaluation note* Diagnosis Stage 3a chronic kidney disease (HCC)- Primary Essential hypertension, benign documented in this encounter [facility]03-16-2023 Reason for referral (narrative)* Diagnostic Procedure Only (Routine) - Pending Review Specialty Diagnoses / Procedures Referred By Contac t Referred To Contact US IMAGING Diagnoses Stage 3a chronic kidney disease (HCC) Procedures US KIDNEY/BLADDER US RETROPERITONEAL REAL TIME W/IMAGE COMPLETE Giovanni Persaud MD [address] [place] [address] Us Imaging Referral ID Status Reason Start Date Expiration Date Visits Requested Visits Authorized [id number] Pending Review Auto-Generat ed Referral 06/09/2022 07/09/2023 1 1 [facility]03-06-2023 Miscellaneous Notes* Telephone Encounter - Son Biggs Ma - 05/30/2022 2:08 PM EST KYUNG: 05/17/2022 omeprazole Last refill: 08/24/2021 QTY: 90 Refills: 1 flonase Last refill: 07/05/2021 QTY: 1 Refills: 11 documented [facility] Instructions* Patient Instructions* Giovanni Persaud MD - 05/17/2022 8:55 AM EST NON FASTING BLOOD WORK 2 DAYS BEFORE THIS MONTH'S RECHECK. STOP hydrochlorothiazide. documented in [facility] History of Present illness Narrative* Giovanni Persaud MD - 05/17/2022 8:43 AM EST This note was created using [employer]. Subjective Henrik Ma is a 81 year old male. He was doing reasonably well. He was less steady on his feet and felt this was from gabapentin. However, neuralgia was still active and bothersome so we agreeddose reduction was not an option at this time. He had a negative stress test last fall. His hypertension was controlled. He exercised by walking at [employer] regularly with some lightweights at home. Review of Systems Constitutional: Negative. Respiratory: Negative. Cardiovascular: Negative. Gastrointestinal: Negative. Musculoskeletal: Negative. Neurological: Negative. ACTIVE PROBLEM LIST Esophageal Reflux Essential Hypertension, Benign Allergic Rhinitis Hyperlipidemia Trigeminal Neuralgia Actinic keratosis. Impotence of Organic Origin Other Seborrheic Keratosis Cad (Coronary Artery Disease) Ckd (Chronic Kidney Disease) Stage 3, Gfr 30-59 Ml/Min ([facility]) Subluxation of Tarsometatarsal Joint of Right Foot [...] METABOLIC PANEL - LIPID PANEL BASIC Giovanni Persaud MD documented [facility] Evaluation note* Diagnosis Stage 3a chronic kidney disease (HCC)- Primary Essential hypertension, benign Other hyperlipidemia documented in this encounter [facility]22 History of Present illness Narrative* Marlys Beck, DIGITAL CAMPAIGN MANAGER.GEOPHYSICAL E LOGGER - 11/09/2021 8:22 AM EDT CC: Patient presents with: Medicare Wellness Exam 6 month f/u HPI Henrik Ma is a 81 year old male who [...] kidney disease) stage 3, GFR 30-59 ml/min ([facility]) 08/04/2016 Esophageal reflux 04/05/2005 Essential hypertension, benign 04/05/2005 Hemangioma of skin and subcutaneous tissue Malignant melanoma of skin of upper limb, including shoulder ([facility]) 1987 left upper arm Other and unspecified hyperlipidemia 04/05/2005 Subluxation of tarsometatarsal joint of right foot 05/31/2017 Dr. 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 Persaud. Prescription instructions reviewed with patient as applicable. Potential red flag symptoms discussed with the patient. Reviewed appropriate action plan to take if red flag symptoms occur. Patient agreeable to treatment plan. Marlys Beck APRN.CNP * Marlys Beck APRN.CNP - 11/09/2021 8:00 AM EDT Medicare Yearly Visit Medical B eligibilty date 2003 Date of last exam 11/09/20 PAST MEDICAL HISTORY Diagnosis Date ABNORMAL FINDINGS-LUNG FIELD 04/27/2006 Granulomas Allergic rhinitis, cause unspecified 04/05/2005 Seasonal, Spring CAD (coronary artery disease) 04/23/2012 Non STEMI, [employer] 2nd diagonal. 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 He watches his diet for sodium, low fat and low cholesterol all of the time, most of the time. List of current specialists seen: Dr. Meyer - Diamond Powder Mixer Dr. Falk - Opthalmologist Dr. Ashraf - City Administrator End of Live Planning discussed including patients advanced directive wishes: Yes I am willing to follow Henrik's advanced directives. Evidence of Cognitive Impairment: No [...] 68 Resp 12 Ht 181.6 cm (5' 11.5) Wt 88.9 kg (196 lb) BMI 26.96 [...] year Marlys Beck APRN.CNP [facility]* Diagnosis Stage 3a chronic kidney disease (HCC)- Primary documented in this encounter [facility] Miscellaneous Notes* Telephone Encounter - Phyllis Cintron [...] you. Phyllis Cintron LPN documented [facility] Miscellaneous Notes* Telephone Encounter - Phyllis Cintron [...] you. Phyllis Cintron LPN documented [facility] Miscellaneous Notes* Telephone Encounter - Phyllis Cintron [...] you. Phyllis Cintron LPN [facility] Miscellaneous Notes* Telephone Encounter - Phyllis Cintron [...] you. Phyllis Cintron LPN documented [facility] encounter[facility] [place] Evaluation note* Diagnosis Onset Date Resolution Status Essential (primary) hypertension chronic HLD (hyperlipidemia) chronic History of coronary artery stent placement March, 2012 resolved [facility] Work Phone: 1(258) 971-550911-28-2012 History of Past illness Narrative* Problem Noted [...] of this encounter (statuses as of 08/04/2021) [facility] History of Past illness Narrative* Problem Noted [...] of this encounter (statuses as of 08/11/2021) [facility] History of Past illness Narrative* Problem Noted [...] of this encounter (statuses as of 08/24/2021) [facility] [place] History of Past illness Narrative* Problem Noted [...] of this encounter (statuses as of 10/25/2021) [facility] [place] History of Past illness Narrative* Problem Noted [...] of this encounter (statuses as of 11/01/2021) [facility] [place] History of Past illness Narrative* Problem Noted [...] of this encounter (statuses as of 11/09/2021) [facility] History of Past illness Narrative* Problem Noted [...] of this encounter (statuses as of 05/17/2022) [facility] History of Past illness Narrative* Problem Noted [...] of this encounter (statuses as of 05/31/2022) [facility] History of Past illness Narrative* Problem Noted [...] of this encounter (statuses as of 06/09/2022) [facility] History of Past illness Narrative* Problem Noted [...] of this encounter (statuses as of 08/01/2022) [facility] [place] History of Past illness Narrative* Problem Noted [...] of this encounter (statuses as of 10/25/2022) [facility] History of Past illness Narrative* Problem Noted [...] of this encounter (statuses as of 11/23/2022) [facility] [place] History of Past illness Narrative* Problem Noted [...] of this encounter (statuses as of 01/03/2023) [facility] History of Past illness Narrative* Problem Noted [...] of this encounter (statuses as of 01/23/2023) [facility] History of Past illness Narrative* Problem Noted [...] of this encounter (statuses as of 01/29/2023) [facility] History of Past illness Narrative* Problem Noted [...] of this encounter (statuses as of 02/08/2023) [facility] History of Past illness Narrative* Problem Noted [...] of this encounter (statuses as of 02/27/2023) [facility] [place] noteNo assessment information availableWCleveland Clinic [facility] Work Phone: Evaluation note* Diagnosis BPH with obstruction/lower urinary tract symptoms Hypertrophy of prostate with urinary obstruction and other lower urinary tract symptoms (LUTS) documented in this encounter [facility]* Diagnosis Impotence of organic origin documented in this encounter [facility]* Diagnosis Gastroesophageal reflux disease, unspecified whether esophagitis present documented in this encounter [facility]* Diagnosis Medicare annual wellness visit, subsequent- Primary Routine general medical examination at a health care facility Essential hypertension, benign Trigeminal neuralgia Stage 3a chronic kidney disease (HCC) documented in this encounter [facility] [place] [facility]* Diagnosis Gastroesophageal reflux disease, unspecified whether esophagitis present documented [facility] this encounter [facility]* Diagnosis BPH with obstruction/lower urinary tract symptoms Hypertrophy of prostate with urinary obstruction and other lower urinary tract symptoms (LUTS) [facility] [place] [facility]* Diagnosis Medicare annual wellness visit, subsequent- Primary Routine general medical examination at a health care facility Trigeminal neuralgia Essential hypertension, benign Other hyperlipidemia 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, unspecified vessel or lesion type Stage 3a chronic kidney disease (HCC) BPH with obstruction/lower urinary tract symptoms Hypertrophy of prostate with urinary obstruction and other lower urinary tract symptoms (LUTS) documented in this encounter [facility] [place] [facility]* Diagnosis Impotence of organic origin documented in this encounter [facility]* Diagnosis Stage 3a chronic kidney disease (HCC)- Primary Other hyperlipidemia Essential hypertension, benign documented in this [facility]* Diagnosis S/P laparoscopic cholecystectomy- Primary Other postprocedural status [facility] Diagnosis BPH with obstruction/lower urinary tract symptoms Hypertrophy of prostate with urinary obstruction and other lower urinary tract symptoms (LUTS) documented in this encounter [facility] [place] [facility]* Diagnosis Gastroesophageal reflux disease, unspecified whether esophagitis present documented [facility] this encounter [facility]* Diagnosis Medicare annual wellness visit, subsequent- Primary Routine general medical examination at a health care facility Encounter for screening examination for other mental health and behavioral disorders Screening for depression Essential hypertension, benign Other hyperlipidemia Trigeminal neuralgia 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, unspecified vessel or lesion type Need for vaccination Need for prophylactic vaccination and inoculation against unspecified single disease Anemia, unspecified type Stage 3a chronic kidney disease (HCC) documented in this encounter [facility]* Diagnosis Diarrhea, unspecified type- Primary documented in this encounter [facility] [place] [facility]* Diagnosis Stage 3a chronic kidney disease (HCC)- Primary documented in this encounter [facility] [place] [facility]* Diagnosis Diarrhea, unspecified type- Primary documented in this encounter [facility] [place] [facility]* Diagnosis Essential hypertension, benign- Primary 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, unspecified vessel or lesion type Stage 3a chronic kidney disease (HCC) Diarrhea, unspecified type documented in this encounter [facility] [place] [facility]* Diagnosis Trigeminal neuralgia documented in this encounter [facility]* Diagnosis Trigeminal neuralgia documented in this encounter [facility] [place] [facility]* Diagnosis Trigeminal neuralgia [facility] Additional Instructions Thank you for trusting us with your care today! Please take Tylenol (2 pills, 650 mg), as needed for pain and fever control. Please return if bleeding is uncontrolled. Please follow-up with Dr. Horton. A local hydramatic mechanic. His information has been provided. I spoke with him on the phone and he states he can see you on , 08/11/2022. Please call tomorrow for an appointment. Please state that you had nasal packing and like to be seen for reevaluation. Please return to the emergency department if your symptoms change or worsen. Please follow with your primary care physician for further outpatient evaluation and management.[facility] Work Phone: Chief Complaint and Reason for Visit Chief Complaint EORDER Chief Complaint E ORDERS Chief Complaint E ORDERS 1 Y FU CAD Coronary artery disease Amb Documentation Reason for Visit Essential (primary) hypertension HLD (hyperlipidemia) History of coronary artery stent placement Chief Complaint INT LABS NOSEBLEED Chief Complaint ABD Chief Complaint ABD INT LABS 1 Y FU INT LABS Reason for Visit Essential (primary) hypertension HLD (hyperlipidemia) History of coronary artery stent placement Advance Directives Documents on File Type Date Recorded Patient Rag Cutting Machine Feeder Expl anation Advance Directive(s) 07/30/2015 11:53 AM Date Activated Date Inactivated Comments 05/30/2023 2:34 AM 06/01/2023 4:31 PM Question Answer Comments Full Code Order Discussed With: Patient Advance Directive Response Recorded Date/ Time Living Will Yes January 28 9:52am Power of Knitter Machine Yes January 28, 2017 9:52am Documents on File Type Date Recorded Patient Rag Cutting Machine Feeder Expl anation Advance Directive(s) 07/30/2015 11:53 AM Advance Directive Response Recorded Date/ Time Name of Medical Power of Knitter Machine winsome joyner n August 08, 2022 4:19pm Living Will Yes August 08, 2022 4 :19pm Power of Knitter Machine Yes August 08, 2022 4:19pm Advance Directive Response Recorded Date/ Time Living Will Yes May 29, 2023 8:36am Power of Knitter Machine Yes May 28 8:36am Name of Medical Power of Knitter Machine May 29, 2023 8:36am Advance Directive Response Recorded Date/ Time Name of Medical Power of Knitter Machine May 29, 2023 9:36am Living Will Yes May 29, 2023 9:36am Power of Knitter Machine Yes May 28 9:36am Summary Purpose Family History No Family History Records Found Additional Source Comments Goals (unrecognized section and content) Goals may be documented in a n alternate sectionGoals may be documented in an alternate sectionGoals may be documented in an alternate sectionGoals may be documented in an alternate sectionGoals may be documented in an alternate sectionGoals may be documented in an alternate section Source Comments (unrecognize d section and content) In the event this informatio n is protected by the Federal Confidentiality of Alcohol and Drug Abuse Patient Records regulations: The Federal rules restrict any use of the information to criminally investigate or prosecute any alcohol or drug abuse patient.[facility] the event this information is protected by the Federal Confidentiality of Alcohol and Drug Abuse Patient Records regulations: The Federal rules restrict any use of the information to criminally investigate or prosecute any alcohol or drug abuse patient.[facility]In the event this information is protected by the Federal Confidentiality of Alcohol and Drug Abuse Patient Records regulations: The Federal rules restrict any use of the information to criminally investigate or prosecute any alcohol or drug abuse patient.[facility]In the event this information is protected by the Federal Confidentiality of Alcohol and Drug Abuse Patient Records regulations: The Federal rules restrict any use of the information to criminally investigate or prosecute any alcohol or drug abuse patient.[facility] the event this information is protected by the Federal Confidentiality of Alcohol and Drug Abuse Patient Records regulations: The Federal rules restrict any use of the information to criminally investigate or prosecute any alcohol or drug abuse patient.[facility]In the event this information is protected by the Federal Confidentiality of Alcohol and Drug Abuse Patient Records regulations: The Federal rules restrict any use of the information to criminally investigate or prosecute any alcohol or drug abuse patient.[facility] the event this information is protected by the Federal Confidentiality of Alcohol and Drug Abuse Patient Records regulations: The Federal rules restrict any use of the information to criminally investigate or prosecute any alcohol or drug abuse patient.[facility]In the event this information is protected by the Federal Confidentiality of Alcohol and Drug Abuse Patient Records regulations: The Federal rules restrict any use of the information to criminally investigate or prosecute any alcohol or drug abuse patient.[facility] the event this information is protected by the Federal Confidentiality of Alcohol and Drug Abuse Patient Records regulations: The Federal rules restrict any use of the information to criminally investigate or prosecute any alcohol or drug abuse patient.[facility] the event this information is protected by the Federal Confidentiality of Alcohol and Drug Abuse Patient Records regulations: The Federal rules restrict any use of the information to criminally investigate or prosecute any alcohol or drug abuse patient.[facility]In the event this information is protected by the Federal Confidentiality of Alcohol and Drug Abuse Patient Records regulations: The Federal rules restrict any use of the information to criminally investigate or prosecute any alcohol or drug abuse patient.[facility]In the event this information is protected by the Federal Confidentiality of Alcohol and Drug Abuse Patient Records regulations: The Federal rules restrict any use of the information to criminally investigate or prosecute any alcohol or drug abuse patient.[facility]hillIn the event this information is protected by the Federal Confidentiality of Alcohol and Drug Abuse Patient Records regulations: The Federal rules restrict any use of the information to criminally investigate or prosecute any alcohol or drug abuse patient.[facility]In the event this information is protected by the Federal Confidentiality of Alcohol and Drug Abuse Patient Records regulations: The Federal rules restrict any use of the information to criminally investigate or prosecute any alcohol or drug abuse patient.[facility]In the event this information is protected by the Federal Confidentiality of Alcohol and Drug Abuse Patient Records regulations: The Federal rules restrict any use of the information to criminally investigate or prosecute any alcohol or drug abuse patient.[facility]In the event this information is protected by the Federal Confidentiality of Alcohol and Drug Abuse Patient Records regulations: The Federal rules restrict any use of the information to criminally investigate or prosecute any alcohol or drug abuse patient.[facility]In the event this information is protected by the Federal Confidentiality of Alcohol and Drug Abuse Patient Records regulations: The Federal rules restrict any use of the information to criminally investigate or prosecute any alcohol or drug abuse patient.[facility] the event this information is protected by the Federal Confidentiality of Alcohol and Drug Abuse Patient Records regulations: The Federal rules restrict any use of the information to criminally investigate or prosecute any alcohol or drug abuse patient.[facility]In the event this information is protected by the Federal Confidentiality of Alcohol and Drug Abuse Patient Records regulations: The Federal rules restrict any use of the information to criminally investigate or prosecute any alcohol or drug abuse patient.[facility] the event this information is protected by the Federal Confidentiality of Alcohol and Drug Abuse Patient Records regulations: The Federal rules restrict any use of the information to criminally investigate or prosecute any alcohol or drug abuse patient.[facility] the event this information is protected by the Federal Confidentiality of Alcohol and Drug Abuse Patient Records regulations: The Federal rules restrict any use of the information to criminally investigate or prosecute any alcohol or drug abuse patient.[facility]In the event this information is protected by the Federal Confidentiality of Alcohol and Drug Abuse Patient Records regulations: The Federal rules restrict any use of the information to criminally investigate or prosecute any alcohol or drug abuse patient.[facility]In the event this information is protected by the Federal Confidentiality of Alcohol and Drug Abuse Patient Records regulations: The Federal rules restrict any use of the information to criminally investigate or prosecute any alcohol or drug abuse patient.[facility] the event this information is protected by the Federal Confidentiality of Alcohol and Drug Abuse Patient Records regulations: The Federal rules restrict any use of the information to criminally investigate or prosecute any alcohol or drug abuse patient.[facility]In the event this information is protected by the Federal Confidentiality of Alcohol and Drug Abuse Patient Records regulations: The Federal rules restrict any use of the information to criminally investigate or prosecute any alcohol or drug abuse patient.[facility]In the event this information is protected by the Federal Confidentiality of Alcohol and Drug Abuse Patient Records regulations: The Federal rules restrict any use of the information to criminally investigate or prosecute any alcohol or drug abuse patient.[facility]In the event this information is protected by the Federal Confidentiality of Alcohol and Drug Abuse Patient Records regulations: The Federal rules restrict any use of the information to criminally investigate or prosecute any alcohol or drug abuse patient.[facility]In the event this information is protected by the Federal Confidentiality of Alcohol and Drug Abuse Patient Records regulations: The Federal rules restrict any use of the information to criminally investigate or prosecute any alcohol or drug abuse patient.[facility]In the event this information is protected by the Federal Confidentiality of Alcohol and Drug Abuse Patient Records regulations: The Federal rules restrict any use of the information to criminally investigate or prosecute any alcohol or drug abuse patient.[facility]In the event this information is protected by the Federal Confidentiality of Alcohol and Drug Abuse Patient Records regulations: The Federal rules restrict any use of the information to criminally investigate or prosecute any alcohol or drug abuse patient.[facility]In the event this information is protected by the Federal Confidentiality of Alcohol and Drug Abuse Patient Records regulations: The Federal rules restrict any use of the information to criminally investigate or prosecute any alcohol or drug abuse patient.[facility]In the event this information is protected by the Federal Confidentiality of Alcohol and Drug Abuse Patient Records regulations: The Federal rules restrict any use of the information to criminally investigate or prosecute any alcohol or drug abuse patient.[facility] Care Teams (unrecognized sec tion and content) Professor Of Nursing Relationship Specialty Start Date End Date Giovanni Persaud MD [address] [facility] [place] [place] [address] PCP - General 03/07/02 Professor Of Nursing Relationship Specialty Start Date End Date Giovanni Persaud MD [address] [facility] [place] [place] [address] PCP - General 03/07/02 Professor Of Nursing Relationship Specialty Start Date End Date Giovanni Persaud MD [address] [facility] [place] [place] [address] PCP - General 03/07/02 Professor Of Nursing Relationship Specialty Start Date End Date Giovanni Persaud MD [address] [facility] [place] [place] [address] PCP - General 03/07/02 Professor Of Nursing Relationship Specialty Start Date End Date Giovanni Persaud MD [address] [facility] [place] [address] PCP - General 03/07/02 Professor Of Nursing Relationship Specialty Start Date End Date Giovanni Persaud MD [address] [facility] [place] [address] PCP - General 03/07/02 Professor Of Nursing Relationship Specialty Start Date End Date Giovanni Persaud MD [address] [facility] [place] [address] PCP - General 03/07/02 Professor Of Nursing Relationship Specialty Start Date End Date Giovanni Persaud MD [address] [facility] [place] [address] PCP - General 03/07/02 Professor Of Nursing Relationship Specialty Start Date End Date Giovanni Persaud MD [address] [facility] [place] [address] PCP - General 03/07/02 Team Status: Active Member Role Status Dates Dr. Giovanni Persaud MD Family Provider Active Dr. Giovanni Persaud MD Primary Care Provider Active Team Status: Inactive Member Role Status Dates Dr. Giovanni Persaud MD Primary Care Provider Active Dr. Lupillo Meyer MD Attending Provider, Referring Pro vider Active Team Status: Inactive Member Role Status Dates Dr. Giovanni Persaud MD Primary Care Provider Active Dr. Nestor Jackson DO Emergency Provider Active Professor Of Nursing Relationship Specialty Start Date End Date Giovanni Persaud MD [address] [place] [address] PCP - General 03/07/02 Professor Of Nursing Relationship Specialty Start Date End Date Giovanni Persaud MD [address] [place] [address] PCP - General 03/07/02 Professor Of Nursing Relationship Specialty Start Date End Date Giovanni Persaud MD [address] [place] [address] PCP - General 03/07/02 Professor Of Nursing Relationship Specialty Start Date End Date Giovanni Persaud MD [address] [place] [address] PCP - General 03/07/02 Professor Of Nursing Relationship Specialty Start Date End Date Giovanni Persaud MD [address] [place], [place] [address] PCP - General 03/07/02 Professor Of Nursing Relationship Specialty Start Date End Date Giovanni Persaud MD [address] [place], [place] [address] PCP - General 03/07/02 Professor Of Nursing Relationship Specialty Start Date End Date Giovanni Persaud MD [address] [place] [address] PCP - General 03/07/02 Professor Of Nursing Relationship Specialty Start Date End Date Giovanni Persaud MD [address] [place] [address] PCP - General 03/07/02 Team Status: Inactive Member Role Status Dates Dr. Giovanni Persaud MD Primary Care Provider Active Dr. Best Orona MD Emergency Provider Active Team Status: Inactive Member Role Status Dates Dr. Giovanni Persaud MD Primary Care Provider, Refer ring Provider Active Dr. Lupillo Meyer MD Attending Provider Active Team Status: Inactive Member Role Status Dates Dr. Giovanni Persaud MD Primary Care Provider Active Dr. Best Orona MD Attending Provider, Emergency Provi cruz Active Team Status: Active Member Role Status Dates Dr. Giovanni Persaud MD Primary Care Provider Active Dr. Lupillo Meyer MD Attending Provider, Referring Pro vider Active Professor Of Nursing Relationship Specialty Start Date End Date Giovanni Persaud MD [address] [place] [address] PCP - General 03/07/02 Professor Of Nursing Relationship Specialty Start Date End Date Giovanni Persaud MD [address] [place] [address] PCP - General 03/07/02 Professor Of Nursing Relationship Specialty Start Date End Date Giovanni Persaud MD [address] [place] [address] PCP - General 03/07/02 Professor Of Nursing Relationship Specialty Start Date End Date Giovanni Persaud MD [address] [facility] [place] [address] PCP - General 03/07/02 Professor Of Nursing Relationship Specialty Start Date End Date Giovanni Persaud MD [address] [facility] [place] [address] PCP - General 03/07/02 Professor Of Nursing Relationship Specialty Start Date End Date Giovanni Persaud MD [address] [place] [address] PCP - General 03/07/02 Marlys Miller, DIGITAL CAMPAIGN MANAGER.GEOPHYSICAL E LOGGER [address] [place] [address] Training And Development Assistant Internal Medicine 03/04/24 Professor Of Nursing Relationship Specialty Start Date End Date Giovanni Persaud MD [address] [place] [address] PCP - General 03/07/02 Marlys Miller, DIGITAL CAMPAIGN MANAGER.GEOPHYSICAL E LOGGER [address] [place] [address] Training And Development Assistant Internal Medicine 03/04/24 Professor Of Nursing Relationship Specialty Start Date End Date Giovanni Persaud MD [address] [place] [address] PCP - General 03/07/02 Marlys Miller, DIGITAL CAMPAIGN MANAGER.GEOPHYSICAL E LOGGER [address] [place] [address] Training And Development Assistant Internal Medicine 03/04/24 Professor Of Nursing Relationship Specialty Start Date End Date Giovanni Persaud MD [address] [place] [address] PCP - General 03/07/02 Marlys Miller, DIGITAL CAMPAIGN MANAGER.GEOPHYSICAL E LOGGER [address] [place], [place] [id number] Training And Development Assistant Internal Medicine 03/04/24 Professor Of Nursing Relationship Specialty Start Date End Date Giovanni Persaud MD [address] [place], [place] [address] PCP - General 03/07/02 Marlys Miller, DIGITAL CAMPAIGN MANAGER.GEOPHYSICAL E LOGGER [address] [place], [place] [address] Training And Development Assistant Internal Medicine 03/04/24 Reason for Visit (unrecogniz ed section and content) Reason Onset Date Comments Refill Request 08/10/2021 Reason Onset Date Comments Refill Request 08/24/2021 Reason Onset Date Comments Refill Request 10/25/2021 Reason Comments Medicare Wellness Exam Reason Comments F/U 6 months Reason Onset Date Comments Refill Request 05/30/2022 Reason Comments 3 week follow-up Reason Onset Date Comments Refill Request 08/01/2022 Reason Onset Date Comments Refill Request 10/22/2022 Reason Comments Radiology US Specialty Diagnoses / Procedures Referred By Qian t Referred To Contact US IMAGING Diagnoses Stage 3a chronic kidney disease (HCC) Procedures US KIDNEY/BLADDER US RETROPERITONEAL REAL TIME W/IMAGE COMPLETE Giovanni Persaud MD [address] [place] [address] [place] [address] Referral ID Status Reason Start Date Expiration Date V isits Requested Visits Authorized [id number] Closed Auto-Generate d Referral 06/09/2022 07/09/2023 1 1 Reason Onset Date Comments Refill Request 02/27/2023 Reason Comments Post Op Lap sirena 0/10 Reason Onset Date Comments Refill Request 08/14/2023 Reason Onset Date Comments Refill Request 08/28/2023 Reason Comments Medicare Wellness Exam F/U 6 months Reason Comments Diarrhea Reason Comments Orders Reason Onset Date Comments Refill Request 01/10/2024 Reason Onset Date Comments Refill Request 06/12/2024 Reason Onset Date Comments Refill Request 07/24/2024 Reason Onset Date Comments Refill Request 08/10/2024 (unrecognized sect ion and content) No Status Records FoundNo Status Records FoundNo Status Records Found INFORMATION SOURCE (unrecogn ized section and content) DATE CREATED AUTHOR 06/20/2023 [facility] DATE CREATED AUTHOR AUTHOR'S ORGANIZ ATION 10/23/2023 [facility] DATE CREATED AUTHOR AUTHOR'S ORGANIZ ATION 05/25/2024 [facility] FOR RECORDS PERTAINING TO PATIENTS WHO ARE [...] BE BASED ON THE PRIMARY CLINICAL RECORDS. [employer] provides no warranty or guarantee of the accuracy or completeness of information in this document.
[2024-08-27 09:07] LABS: AST(SGOT) 26 U/L (<=37); Alanine Aminotransfer ALT/SGPT 19 U/L (<=46); Alkaline Phosphatase 70 U/L (40-129); Bilirubin, Direct 0.72 mg/dL (0.00-0.30); Cholesterol 128 mg/dL (<=200); Globulin 2.4 g/dL (2.2-4.2); High Density Lipoprotein 50 mg/dL; Low Density Lipoprotein Calc. 57 mg/dL; Protein, Total 6.4 g/dL (5.9-8.4); Total Bilirubin 2.05 mg/dL (0.00-1.30); Triglycerides 105 mg/dL; Very Low Density Lipoprotein 21 mg/dL (5-40); cholesterol:hdl ratio screen 2.57
== END | disposition home or self-care (01) ==
LOC: LAB 06:42
PROVIDERS: PCP Internal Medicine; Referring Provider Physician Assistant Medical; Visit Provider Physician Assistant Medical
DX: E78.00 Pure hypercholesterolemia, unspecified (principal)
CPT/HCPCS: 36415; 80061; 80076

== ENCOUNTER → 2025-03-06 | Outpatient (CLI) | payer MEDICARE, SELFPAY ==
--- OUTSIDE RECORDS SUMMARY | 2025-03-06 07:25 | XMS RPT_ITS | CCD ---
Author Organization [facility] Care Team Providers Care Consumer Relations Complaint Clerk Name Role Phone Veronica PARADA, Jalyn Dan Unavailable Unavailable Lonnie Ballard Unavailable Unavailable MD Meyer Cyril S Unavailable Winsome Falk Unavailable Winsome Falk Unavailable Giovanni Persaud MD Primary Care Provider Giovanni Persaud MD Primary Care Provider Dr. Giovanni Persaud Primary Care Provider Dr. Giovanni Persaud Referring Provider Dr. Lupillo Meyer Attending Provider Dr. Lupillo Meyer Referring Provider Dr. Lupillo Meyer Other Provider Becca Crowley Attending Provider Unavailable Giovanni Persaud MD Primary Care Provider STPEHANE ROSALES Admitting UnavailSTEPHANE Nicolas Attending Unavaillindy e ROSSY ORONAO MANDO Referring Unavailable GIOVANNI PERSAUD Primary Care Unavailable JAUN LEBLANC Attending Unavailable GIOVANNI PERSAUD Primary Care Unavailable Dr. Giovanni Persaud Primary Care Provider Dr. Giovanni Persaud Referring Provider Dr. Lupillo Meyer Attending Provider Giovanni Persaud MD Primary Care Provider Kenia ZHUN.CINDER BLOCK MASON, Marlys M Unavailable Dr. Giovanni Persaud MD Primary Care Provider Dana Hdez Attending Provider [phone] Dana Hdez Referring Provider [phone] Dr. Giovanni Persaud MD Referring Provider Cristel Castillo Attending Provider [phone] Cristel Guerrero NP Attending Unavailable Persaud, Giovanni Primary Care Unavailable Persaud, Giovanni Referring Unavailable Persaud, Giovanni Primary Care Unavailable Shahana BARRIENTOS, Dana Nelson Attending Unavail able Shahana BARRIENTOS, Dana Nelson Referring Unavail able Referred, Self Referring Unavailable Persaud, Giovanni Primary Care Unavailable Referred, Self Attending Unavailable PERSAUD, VASYL Referring Unavailable PERSAUD, GIOVANNI Gentile Primary Care Unavailable PERSAUD, GIOVANNI Gentile Primary Care Unavailable PERSAUD, GIOVANNI Gentile Referring Unavailable PERSAUD, GIOVANNI Gentile Primary Care Unavailable PERSAUD, GIOVANNI Gentile Attending Unavailable PERSAUD, GIOVANNI Gentile Primary Care Unavailable PERSAUD, GIOVANNI Gentile Referring Unavailable PERSAUD, GIOVANNI Gentile Primary Care Unavailable PERSAUD, GIOVANNI Gentile Attending Unavailable PERSAUD, GIOVANNI Gentile Attending Unavailable PERSAUD, VASYL Primary Care Unavailable PERSAUD, VASYL Referring Unavailable PERSAUD, VASYL Primary Care Unavailable PERSAUD, VASYL Referring Unavailable PERSAUD, VASYL Primary Care Unavailable Allergies Allergy Classification Reported Allergen(s) Allergy Type Date of Onset Reaction(s) Facility (20 sources) Cat; Translations: [CATS] allergy to substance 6 [facility] [employer] Work Phone: (20 sources) TREES; Translations: [TREES] food allergy 6 [facility] [employer] Work Phone: (9 sources) Tree and shrub pollen; Translations: [tree and shrub pollen] Allergy to substance 1 Shortness of breath [facility] (9 sources) cat dander; Translations: [cat dander] Allergy to substance 1 Anaphylaxis [facility] Medications Current Medications Medication Drug Class(es) Dates Sig (Normalized) Sig (Original) Antiarthritic Combination No.2 (Glucosamine-Chondro itin) 900 mg tablet (8 sources) Start: 12-31-2020 take 1 tablet by mouth once daily Antiarthritic Combination No.2 (Glucosamine-Chondr oitin) 900 mg tablet Active 900 MG PO DAILY December 31, 2020 11:16am Start: 12-31-2020 End: 08-03-2023 take 1 tablet by mouth once daily Antiarthritic Combination No.2 (Glucosamine-Chondroitin) 900 mg tablet Discontinued 900 mg PO DAILY December 31, 2020 12:00am August 03, 2023 11:37am Start: 12-31-2020 End: 08-03-2023 take 1 tablet [...] tablet 11 01/18/2013 Active Start: 05-17-2012 take 1 tablet by shari th once daily Aspirin 81 MG tablet,delayed release (DR/EC) Active 81 mg PO DAILY May 18, 2016 1:00am Start: 05-17-2012 take 1 tablet by shari th once daily ASPIRIN 81 MG TABS One tablet by mouth daily ASPIRIN [id number] Lupillo Meyer MD Start: 05-08-2012 take 1 tablet by shari th once daily ECOTRIN 325 MG TBEC One tablet by mouth daily ASPIRIN [id number] Jalyn Martin RN Start: 05-08-2012 take 1 tablet by shari th once daily ECOTRIN 325 MG TBEC One tablet by mouth daily ASPIRIN [id number] Jalyn Martin RN Comment on above: Take 1 tablet by [facility] once daily. Take with food. docusate sodium 50 mg / sennosides, [facility] 8.6 mg oral tablet (10 sources) Start: 024 End: 025 take 1 tablet by mouth once daily as needed for constipation senna-docusate (SENNA-S) 8.6-50 mg per tablet Take 1 tablet by mouth once daily as needed for constipation. 28 tablet 06/01/2023 05/23/2024 Discontinued Comment on above: Take 1 tablet by [facility] once daily as needed for constipation. fluticasone propionate 0.05 mg/actuat metered dose nasal spray (20 sources) Corticosteroid Start: Fluticasone Propionate 50 mcg/actuation spray,suspension Active 2 NMA INTRANASAL DAILY as needed for allergy symptoms December 30, 2021 12:00am Start: 12-30-2021 Fluticasone Pr opionate Active 2 SPRAY INTRANASAL DAILY December 30, 2021 12:00am Start: 07-05-2021 End: 06-12-2024 take 2 spray(s) by mouth once daily fluticasone (FLONASE) 50 mcg/actuation nasal spray Use 2 Sprays in each nostril once daily. Rinse mouth after use. 1 Each 5 06/13/2024 Active Start: 10-03-2014 FLONASE 50 MCG /ACT SUSP Take as directed FLUTICASONE PROPIONATE [id number] Lupillo Meyer MD Start: 10-03-2014 End: 11-12-2015 FLONASE 50 MCG/ACT SUSP Take as directed FLUTICASONE PROPIONATE [id number] Lupillo Meyer MD Start: 10-03-2014 End: 11-12-2015 FLONASE 50 MCG/ACT SUSP Take as directed FLUTICASONE PROPIONATE [id number] Lupillo Meyer MD Start: 10-03-2014 End: 11-12-2015 FLONASE 50 MCG/ACT SUSP Take as directed FLUTICASONE PROPIONATE [id number] Lupillo Meyer MD Start: 10-03-2014 FLONASE 50 MCG /ACT SUSP Take as directed FLUTICASONE PROPIONATE [id number] Lupillo Meyer MD Comment on above: Use 2 Sprays in each nostril once daily. Rinse mouth after use. gabapentin 300 mg oral capsule (20 sources) Anti-epileptic Agent Start: 08-05-2021 End: 11-23-2023 take 1 capsule by mouth twice daily gabapentin (NEURONTIN) 300 mg capsule Indications: Trigeminal neuralgia Take 1 capsule by mouth twice daily. 180 capsule 3 11/23/2022 11/23/2023 Active Start: 11-16-2017 End: 02-05-2025 take 1 capsule by mouth once daily gabapentin (NEURONTIN) 300 mg capsule Indications: Trigeminal neuralgia Take 1 capsule by mouth once daily for 180 days. Patient should start on August 09, 2024. 90 capsule 1 08/09/2024 02/05/2025 Active Start: 05-08-2012 take 1 tablet by shari th once daily GABAPENTIN 300 MG CAPS One tablet by mouth daily GABAPENTIN [id number] Jalyn Maritn RN Comment on above: Take 1 capsule by mo ut twice daily. Do not start before August 05, 2021. Take 1 capsule by mo ut twice daily. Take 1 capsule by mo uth once daily. Multivitamin preparation (6 sources) Start: 11-21-2019 [...] 1 tablet by shari th once daily. Multivitamin tablet (2 sources) Start: 11-21-2019 Multivitamin tablet Active 1 {tbl} PO DAILY November 21, 2019 12:00am nitroglycerin 0.4 mg sublingual tablet (20 sources) Nitrate Vasodilator Start: 05-08-2012 End: 11-06-2023 nitroglycerin sublingual (NITROQUICK) 0.4 mg SL tablet [...] capsule (20 sources) Proton Pump Inhibitor Start: 11-12-2020 End: 08-28-2023 take 1 capsule by mouth before mealtime as needed omeprazole (PRILOSEC) 20 mg capsule Indications: Gastroesophageal reflux disease, unspecified whether esophagitis present Take 1 capsule by mouth as needed. 1/2 hr before meal. 90 capsule 3 08/28/2023 Active Start: 04-21-2015 End: 08-03-2023 take 1 tablet by mouth once daily Omeprazole Magnesium 20 MG tablet,delayed release (DR/EC) Discontinued 20 mg PO DAILY May 18, 2016 1:00am August 03, 2023 11:38am Start: 04-21-2015 take 1 tablet by shari th once daily PRILOSEC OTC 20 MG TBEC One tablet by mouth daily OMEPRAZOLE MAGNESIUM [id number] Lupillo Meyer MD Start: 05-08-2012 End: 11-12-2015 take 1 tablet by mouth once daily OMEPRAZOLE 20 MG CPDR One tablet by mouth daily OMEPRAZOLE [id number] Lupillo Meyer MD Comment on above: Take 1 capsule by mo ut daily before breakfast. 1/2 hr before meal. pravastatin sodium 40 mg oral tablet (20 sources) HMG-CoA Reductase Inhibitor Start: 013 End: take 1 tablet by mouth once daily at bedtime pravastatin (PRAVACHOL) 40 mg tablet Take 1 tablet by mouth daily at bedtime. 90 tablet 3 01/10/2024 Active Comment on above: Take 1 tablet by shari th daily at bedtime. sildenafil 20 mg oral tablet (20 sources) Phosphodiesterase 5 Inhibitor Start: 08- End: take 2-3 tablets by mouth once daily as needed sildenafil (REVATIO) 20 mg tablet Indications: Impotence of organic origin Take 2-3 tablets by mouth once daily as needed (erectile dysfunction). 12 tablet 2 02/27/2023 Active Comment on above: Take 2-3 tablets by mouth once daily as needed (erectile dysfunction). tamsulosin hydrochloride 0.4 mg oral capsule (20 sources) alpha-Adrenergic Mona Start: take 1 capsule by mouth once daily at bedtime tamsulosin (FLOMAX) 0.4 mg Indications: BPH with obstruction/lower urinary tract symptoms Take 1 capsule by mouth daily at bedtime. 90 capsule 3 08/13/2024 Active Start: 11-20-2018 End: 08-14-2023 take 1 capsule by mouth once daily Tamsulosin 0.4 mg capsule Active 0.4 mg PO DAILY November 20, 2018 12:00am Comment on above: Take 1 capsule by mo [facility] daily at bedtime. Completed/Discontinued Medications Medication Drug Class(es) Dates Sig (Normalized) Sig (Original) acetaminophen 325 mg oral tablet (4 sources) Start: 06-01-2023 End: 11-21-2023 take 2 tablets by mouth four times daily acetaminophen (TYLENOL) 325 mg tablet Take 2 tablets by mouth four times daily. 06/01/2023 11/21/2023 Discontinued Comment on above: Take 2 tablets by mo uth four times daily. ascorbic acid 500 mg oral tablet (10 sources) Vitamin C Start: 05-17-2012 End: 02-11-2014 take 1 tablet by mouth once daily VITAMIN C 500 MG TABS One tablet by mouth daily ASCORBIC ACID [id number] Lupillo Meyer MD calcium polycarbophil 625 mg oral tablet (10 sources) Start: 05-08-2012 End: 08-20-2013 take 1 tablet by mouth once daily FIBERCON 625 MG TABS One tablet by mouth daily CALCIUM POLYCARBOPHIL [id number] Jalyn Martin RN GLUCOSAMINE-CHONDROI TIN CAPS (5 sources) Start: 05-08-2012 take 1 tablet by mouth once daily GLUCOSAMINE-CHONDRO ITIN CAPS One tablet by mouth daily GLUCOSAMINE-CHONDRO ITIN CAPS [id number] Jalyn Martin RN clopidogrel 75 mg oral tablet (20 sources) P2Y12 Platelet Inhibitor Start: 03-07-2013 End: 05-29-2023 Clopidogrel 75 mg tablet Discontinued 0 .ROUTE .COMPLEX 90 February 21, [...] tablet by mouth daily COENZYME Q10 TABS [id number] Lupillo Meyer MD Start: 05-08-2012 take 1 tablet by shari th once daily CO-ENZYME Q-10 TABS One tablet by mouth daily COENZYME Q10 TABS [id number] Jalyn Martin RN COENZYME Q10 TABS (6 sources) Start: 05-08-2012 End: 10-03-2014 CO-ENZYME Q-10 TABS One tabl et by mouth daily COENZYME Q10 TABS [id number] Lupillo Meyer MD Start: 05-08-2012 CO-ENZYME Q-10 TABS One tablet by mouth daily COENZYME Q10 TABS [id number] Jalyn Martin RN fexofenadine hydrochloride 180 mg oral tablet (15 sources) Histamine-1 Receptor Antagonist Start: 05-08-2012 End: 05-29-2023 take 1 tablet by mouth once daily Fexofenadine (Allergy Relief (Fexofenadine)) 180 mg tablet Discontinued 180 mg PO DAILY November 16, 2017 12:00am May 29, 2023 10:09pm Comment on above: Take by mouth. Fish Oils (10 sources) Start: 05-08-2012 End: 02-11-2014 take 1 capsule by mouth once daily FISH OIL CAPS One capsule by mouth daily OMEGA-3 FATTY ACIDS CAPS [id number] Lupillo Meyer MD Start: 05-08-2012 take 1 capsule by mo [facility] once daily FISH OIL CAPS One capsule by mouth daily OMEGA-3 FATTY ACIDS CAPS [id number] Jalyn Martin RN folic acid 1 mg oral tablet (10 sources) Start: 05-08-2012 End: 02-11-2014 take 1 tablet by mouth once daily FOLIC ACID 1 MG TABS One tablet by mouth daily FOLIC ACID [id number] Lupillo Meyer MD garlic preparation 10 mg oral capsule (10 sources) Non-Standardized Food Allergenic Extract Start: 05-08-2012 End: 08-20-2013 take 1 tablet by mouth once daily GARLIC CAPS One tablet by mouth daily GARLIC CAPS [id number] Lupillo Meyer MD Start: 05-08-2012 take 1 tablet by [facility] once daily GARLIC CAPS One tablet by mouth daily GARLIC CAPS [id number] Jalyn Martin RN Start: 05-08-2012 End: 08-20-2013 take 1 tablet by mouth once daily GARLIC CAPS One tablet by mouth daily GARLIC CAPS [id number] Lupillo Meyer MD ginseng preparation 100 mg oral capsule (10 sources) Start: 05-08-2012 End: 08-20-2013 take 1 tablet by mouth once daily GINSENG 100 MG CAPS One tablet by mouth daily on Mon, Weds and Mon GINSENG [id number] Jalyn Martin RN glucosamine sulfate 500 mg oral tablet (8 sources) Start: 11-21-2019 End: 08-03-2023 take 2 tablets by mouth once daily at mealtime Glucosamine Sulfate (Glucosamine) 500 mg tablet Discontinued 1000 mg PO DAILY November 21, 2019 12:00am August 03, 2023 11:38am administer with meals GLUCOSAMINE HCL/CHONDRO STOUT A (GLUCOSAMINE-CHONDROITIN ORAL) (18 sources) GLUCOSAMINE HCL/ CHONDRO STOUT A (GLUCOSAMINE-CHONDROITI N ORAL) Take by mouth once daily. 0 Active Comment on above: Take by mouth once d aily. hydroCHLOROthiazide 12.5 mg oral capsule (20 sources) Thiazide Diuretic Start: 05-18-2016 End: 05-29-2023 take 1 capsule by mouth once daily Hydrochlorothiazide 12.5 MG capsule Discontinued 12.5 mg PO DAILY May 18, 2016 1:00am May 29, 2023 10:09pm Start: 03-07-2013 take 1 tablet by shari once daily HYDROCHLOROTHIAZIDE 12.5 MG TABS One tablet by mouth daily HYDROCHLOROTHIAZIDE [id number] Lupillo Meyer MD Comment on above: Take 1 capsule by [facility] once daily. hydroCHLOROthiazide 12.5 mg / lisinopril 10 mg oral tablet (10 sources) Thiazide Diuretic, Angiotensin Converting Enzyme Inhibitor Start: LISINOPRIL-HYDROCHL OROTHIAZIDE 10-12.5 MG TABS One half tablet by mouth daily LISINOPRIL-HYDROCHL OROTHIAZIDE [id number] Lupillo Meyer MD lisinopril 5 mg oral tablet (20 sources) Angiotensin Converting Enzyme Inhibitor Start: End: 024 take 1 tablet by mouth once daily Lisinopril 5 MG tablet Discontinued 5 mg PO DAILY May 18, 2016 1:00am August 03, 2023 11:38am Comment on above: Take 1 tablet by [facility] once daily. magnesium oxide 250 mg oral tablet (5 sources) Start: 015 take 1 tablet by mouth once daily MAG-OXIDE TABS 250mg One tablet by mouth daily MAGNESIUM OXIDE TABS Lupillo Meyer MD Magnesium Oxide-Mg Amino Acid Chelate (MAGNESIUM) 300 mg cap (6 sources) Start: 013 Magnesium Oxide-Mg Amino Acid Chelate (MAGNESIUM) 300 mg cap Indications: CAD (coronary artery disease) Take 1 capsule by mouth. 0 01/18/2013 Active Comment on above: Take 1 capsule by [facility]. Magnesium Oxide-Mg Amino Acid Chelate 300 mg [...] on above: Take 1 capsule by mo [facility]. melatonin 3 mg oral tablet (10 sources) Start: 05-08-2012 End: 10-03-2014 take 1 tablet by mouth at bedtime as needed MELATONIN 3 MG TABS One tablet by mouth at bedtime. As needed MELATONIN [id number] Jalyn Martin RN metoprolol tartrate 50 mg oral tablet (20 sources) beta-Adrenergic Mona Start: 05-18-2016 End: 06-05-2017 take 1 tablet by mouth once daily Metoprolol Tartrate 50 MG tablet Discontinued 50 mg PO DAILY May 18, 2016 1:00am June 05, 2017 1:12pm Start: 05-08-2012 End: 08-12-2024 take 1 tablet by mouth twice daily metoprolol tartrate, short acting, 50 mg tablet Indications: CAD (coronary artery disease) Take 1 tablet by mouth twice daily. 60 tablet 0 01/18/2013 Active Comment on above: Take 1 tablet by [facility] twice daily. MULTIPLE VITAMIN (5 sources) Start: 02-11-2014 take 1 tablet by mouth once daily MULTIVITAMINS TABS One tablet by mouth daily MULTIPLE VITAMIN Lupillo Meyer MD resveratrol 50 mg oral capsule (10 sources) Start: 05-08-2012 End: 02-11-2014 take 1 tablet by mouth once daily RESVERATROL CAPS One tablet by mouth daily RESVERATROL CAPS [id number] Jalyn Martin RN SELENIUM (4 sources) Start: 05-08-2012 take 1 tablet by mouth every other day SELENIUM ER 200 MCG CR-TABS One tablet by mouth every other day SELENIUM [id number] Jalyn Martin RN Start: 05-08-2012 End: 02-11-2014 take 1 tablet by mouth every other day SELENIUM ER 200 MCG CR-TABS One tablet by mouth every other day SELENIUM [id number] Lupillo Meyer MD SELENIUM (6 sources) Start: 05-08-2012 take 1 tablet by shari every other day SELENIUM ER 200 MCG CR-TABS One tablet by mouth every other day SELENIUM [id number] Jalyn Martin RN Start: 05-08-2012 End: 02-11-2014 take 1 tablet by mouth every other day SELENIUM ER 200 MCG CR-TABS One tablet by mouth every other day SELENIUM [id number] Lupillo Meyer MD tadalafil 5 mg oral tablet (5 sources) Phosphodiesterase 5 Inhibitor Start: 05-08-2012 take 1 tablet by mouth once daily CIALIS 5 MG TABS One tablet by mouth daily TADALAFIL [id number] Lupillo Meyer MD thioctic acid 50 mg oral capsule (20 sources) Start: 11-21-2019 End: 05-29-2023 take 1 capsule by mouth once daily Alpha Lipoic Acid 50 mg capsule Discontinued 50 mg PO DAILY November 21, 2019 12:00am May 29, 2023 10:07pm Start: 10-03-2014 take 3 capsules by m outh once daily ALPHA-LIPOIC ACID 200 MG CAPS 600 mg by mouth daily ALPHA-LIPOIC ACID [id number] Lupillo Meyer MD Start: 07-23-2014 take 1 capsule by mo uth once daily Alpha Lipoic Acid 600 mg [...] One tablet by mouth twice daily TICAGRELOR [id number] Lupillo Meyer MD vardenafil 10 mg oral tablet (5 sources) Phosphodiesterase 5 Inhibitor Start: 05-08-19 13 LEVITRA 10 MG TABS Take as directed VARDENAFIL HCL [id number] Jalyn Martin RN vitamin b 12 0.5 mg oral tablet (17 sources) Vitamin B12 Start: 05-08-19 13 End: 02-12-20 14 take 1 tablet by mouth every other day VITAMIN B-12 500 MCG TABS One tablet by mouth every other day CYANOCOBALAMIN [id number] Lupillo Meyer MD take 1 tablet by mouth once cherie y cyanocobalamin (VITAMIN B-12) 1,000 mcg tab Take 1,000 mcg by mouth once daily. Active CHOLECALCIFEROL (10 sources) Start: 05-17-2012 End: 02-11-2014 take 1 tablet by mouth once daily VITAMIN D 1000 UNIT TABS One tablet by mouth daily CHOLECALCIFEROL [id number] Lupillo Meyer MD Start: 05-17-2012 take 1 tablet by shari th once daily VITAMIN D 1000 UNIT TABS One tablet by mouth daily CHOLECALCIFEROL [id number] Lupillo Meyer MD Start: 05-17-2012 End: 02-11-2014 take 1 tablet by mouth once daily VITAMIN D 1000 UNIT TABS One tablet by mouth daily CHOLECALCIFEROL [id number] Lupillo Meyer MD Start: 05-17-2012 End: 02-11-2014 take 1 tablet by mouth once daily VITAMIN D 1000 UNIT TABS One tablet by mouth daily CHOLECALCIFEROL [id number] Lupillo Meyer MD Start: 05-17-2012 take 1 tablet by shari th once daily VITAMIN D 1000 UNIT TABS One tablet by mouth daily CHOLECALCIFEROL [id number] Lupillo Meyer MD Problems Active Problems Problem [...] Coronary arteriosclerosis; Translations: [Atherosclerotic heart disease of [place] coronary artery without angina pectoris] Onset: 3 05-08-2012 Chronic Deficiency and other anemia (1 source) Anemia; Translations: [Anemia, unspecified] 11-21-2023 Episodic Disorders of lipid metabolism (20 sources) Hyperlipidemia; Translations: [Hyperlipidemia, unspecified] Onset: 6 05-08-2012 Chronic E Codes: Adverse effects of medical drugs (5 sources) Adverse effect of anticoagulant antagonists, vitamin [...] for immunization] 11-21-2023 Episodic Nonspecific chest pain (13 sources) Other chest pain; Translations: [Chest pain] Onset: 7 05-19-2016 Episodic Other aftercare (6 sources) Patient encounter status; Translations: [MCFP (current) use of antithrombotics/antipl atelets] 05-29-2023 Episodic Other aftercare (2 sources) Long-term current use of drug therapy; Translations: [MCFP (current) use of antithrombotics/antipl atelets] 06-07-2023 Episodic Other circulatory disease (5 sources) Disorder of carotid artery; Translations: [Occlusion and stenosis of unspecified carotid artery] Onset: 4 08-20-2013 Chronic Other gastrointestinal disorders (3 sources) Diarrhea; Translations: [Diarrhea, unspecified] 12-28-2023 Episodic Other lower respiratory disease (4 sources) Single lobe lung infiltrate; Translations: [Other nonspecific abnormal finding of lung field] 05-29-2023 Episodic Other male genital disorders (20 sources) Secondary erectile dysfunction; Translations: [Male erectile dysfunction, unspecified] Onset: 0 07-09-2009 Chronic Other nervous system disorders (20 sources) Trigeminal neuralgia; Translations: [Trigeminal neuralgia] Onset: 6 08-24-2005 Episodic Other nervous system disorders (6 sources) Trigeminal nerve disorder; Translations: [Disorder of trigeminal nerve, unspecified] 12-30-2021 Episodic Other upper respiratory disease (20 sources) Allergic rhinitis; Translations: [Allergic rhinitis, unspecified] Onset: 6 01-22-2015 Chronic Other upper respiratory disease (5 sources) Bleeding from nose; Translations: [Epistaxis] 08-08-2022 Episodic Residual codes; unclassified (1 source) Acquired absence of other specified parts of digestive tract; Translations: [S/P laparoscopic cholecystectomy] Onset: 4 Episodic Screening and history of mental health and substance abuse codes (2 sources) Encounter for screening examination for other mental health and behavioral disorders; Translations: [Encounter for screening for depression] Onset: 5 Episodic Unclassified (2 sources) Placement of stent in coronary artery ; Translations: [Presence of coronary angioplasty implant and graft] Onset: 3 11-12-2015 Unclassified (6 sources) Long-term drug therapy; Translations: [Other intermission coordinator (current) drug therapy] Onset: 3 04-14-2015 Past or Other Problems Problem Classification Problem Date Documented Date Episodic/Chronic Allergic reactions (20 sources) Radiation-induced dermatosis; Translations: [Other skin changes due to chronic exposure to nonionizing radiation] Onset: 7 Resolved: 4 10-10-2011 Episodic Biliary tract disease (20 sources) Acute cholecystitis without calculus; Translations: [Acute cholecystitis] Onset: 4 Resolved: 4 05-29-2023 Episodic Coagulation and hemorrhagic disorders (15 sources) Non-thrombocytopenic purpura; Translations: [Other nonthrombocytopenic purpura] Onset: 9 Resolved: 2 10-10-2011 Episodic Coronary atherosclerosis and other heart disease (2 sources) Presence of coronary angioplasty implant and graft; Translations: [Percutaneous transluminal coronary angioplasty status] Onset: 3 Episodic Deficiency and other anemia (1 source) Anemia, unspecified; Translations: [Anemia, unspecified type] Onset: 5 Episodic Genitourinary symptoms and ill-defined conditions (20 sources) Urinary tract obstruction; Translations: [Obstructive and reflux uropathy, unspecified] Onset: 3 Resolved: 4 08-01-2022 Episodic Joint disorders and dislocations; trauma-related (20 sources) Subluxation of foot joint; Translations: [Subluxation of tarsometatarsal joint of right foot, initial encounter] Onset: 8 Resolved: 4 05-31-2017 Episodic Melanomas of skin (15 sources) History of malignant melanoma of the skin; Translations: [Personal history of malignant melanoma of skin] Onset: 7 Resolved: 2 10-10-2011 Episodic Other aftercare (4 sources) Other snf (current) drug therapy; Translations: [Long-term (current) use of other medications] Onset: 3 04-14-2015 Episodic Other and unspecified benign neoplasm (15 sources) Benign neoplasm of skin of trunk; Translations: [Other benign neoplasm of skin of trunk] Onset: 8 Resolved: 2 02-22-2012 Episodic Other and unspecified benign neoplasm (15 sources) Senile angioma; Translations: [Hemangioma of skin and subcutaneous tissue] Onset: 2 Resolved: 4 01-22-2014 Episodic Other circulatory disease (5 sources) Carotid bruit; Translations: [Other specified symptoms and signs involving the circulatory and respiratory systems] Onset: 4 08-20-2013 Episodic Other circulatory disease (15 sources) Non-neoplastic nevus; Translations: [Nevus, non-neoplastic] Onset: 7 Resolved: 2 10-10-2011 Episodic Other diseases of kidney and ureters (20 sources) Hydronephrosis; Translations: [Unspecified hydronephrosis] Onset: 3 Resolved: 4 07-11-2022 Episodic Other gastrointestinal disorders (1 source) Diarrhea, unspecified; Translations: [Diarrhea, unspecified type] Onset: 4 Episodic Other inflammatory condition of skin (15 sources) Psoriasis; Translations: [Other psoriasis] Onset: 7 Resolved: 2 10-10-2011 Chronic Other lower respiratory disease (15 sources) Lung field abnormal; Translations: [Nonspecific abnormal findings on radiological and other examination of lung field] Onset: 7 Resolved: 7 06-29-2006 Episodic Other nervous system disorders (1 source) Trigeminal neuralgia; Translations: [Trigeminal neuralgia] Onset: 6 Episodic Other non-epithelial cancer of skin (15 sources) History of malignant neoplasm of skin; [...] Resolved: 2 02-22-2012 Episodic Other skin disorders (15 sources) Scar conditions and fibrosis of skin; Translations: [Scar conditions and fibrosis of skin] Onset: 7 Resolved: 2 10-10-2011 Episodic Other skin disorders (15 sources) Disorder of skin pigmentation; Translations: [Disorder of pigmentation, unspecified] Onset: 7 Resolved: 2 10-10-2011 Episodic Other skin disorders (20 sources) Inflamed seborrheic keratosis; Translations: [Inflamed seborrheic keratosis] Onset: 7 Resolved: 4 10-10-2011 Episodic Other skin disorders (15 sources) Solar lentigo; Translations: [Other melanin hyperpigmentation] Onset: 2 Resolved: 8 05-31-2017 Episodic Unclassified (2 sources) Percutaneous transluminal coronary angioplasty ; Translations: [Coronary angioplasty status] Onset: 3 05-08-2012 Viral infection (15 sources) Verruca vulgaris; Translations: [Viral wart, unspecified] Onset: 7 Resolved: 2 10-10-2011 Episodic Results Test Name Value Interpretation Reference Range Facility [facility] 11-21-2024 CNOV Office Visit (INTMWS ) HENRIK MA ([id number]) 1940 M Date Time Provider Department 11/21/24 9:00 AM GIOVANNI PERSAUD INTMWS During your visit today, we recorded the following information about you: Pulse Respiration Blood pressure Weight 60/minute 12/minute 126/62 83.1 kg Height 1.793 m Giovanni Persaud MD 11/21/2024 9:47 AM Signed Henrikdedra Ma is a 84 year old male here for a Medicare wellness visit. Medicare Health Risk Assessment General Health Good Exercise: Minutes/Day 30 min Exercise: Days/Week 4 days Alcohol: Daily Use Monthly or less Alcohol: Drinks/Day 1 or 2 Alcohol: 6 or more drinks Never Feel off balance No Concerns: Teeth/Dentures No Concerns: Sexual function No Troubled by feelings None of the above [...] Giovanni Persaud MD as PCP - General Marlys Miller APRN.CINDER BLOCK MASON as Tie Loader (Internal Medicine) Outside specialists seen: Dr. Lupillo Meyer - Sound Printer Dr. Berry Falk - Optometry. Dr. Francisco Ashraf - Power Generation Technician Medical/Family history review Reviewed and updated problem list, medical/surgical/famil y/social history, medications, and allergies. Opioid use review Opioid Medications (last 90 days) No data to display Anxiety/Depression screening PHQ-2 Score: 0 (Lower risk for depression) LA-2 Score: 0 (Lower risk for anxiety) Recommendation: no further intervention at this time Cognitive screening Mini Cog Score: 5 Cognitive screening reviewed and No further action needed (score 3-5). Functional Observation Was the patient's Timed Up AND Go test unsteady or >= 12 seconds? No Advance Care Planning Surrogate decision maker documented and/or advance directives scanned in chart Measurements BP 126/62 (BP Site: Left Arm, BP Position: Sitting, BP Cuff Size: Large Adult) Pulse 60 Resp 12 Ht 179.3 cm (5' 10.6) Wt 83.1 kg (183 lb 3.2 oz) BMI 25.84 kg/m? Vision Screening: Follows with optometry/ophthalmolog y Right: 20/70 Left: 20/ 40 Both: 20/40 Assessment/Plan Medicare annual wellness visit, subsequent (Z00.00) - Counseled on healthy diet and regular exercise - Fall avoidance information provided - Personalized prevention plan provided MD Hung Rainey Victor H, MD 11/21/2024 9:47 AM Signed Subjective Henrik Ma is a 84 year old male. He was doing well. His medications have not changed. His cardiology follow up was done annually. His conditions were controlled. He sees dermatology regularly as well. Review of Systems Constitutional: Negative for fatigue and unexpected weight change. Respiratory: Negative for cough and shortness of breath. Cardiovascular: Negative for chest pain and palpitations. Musculoskeletal: Negative for arthralgias. Neurological: Negative for dizziness, numbness and headaches. ACTIVE PROBLEM LIST Esophageal Reflux Essential Hypertension, Benign Allergic Rhinitis Hyperlipidemia Trigeminal Neuralgia Actinic keratosis. Impotence of Organic Origin Other Seborrheic Keratosis Cad (Coronary Artery Disease) Ckd (Chronic Kidney Disease) Stage 3, Gfr 30-59 Ml/Min ([facility]) Bph With Obstruction/Lower Urinary Tract Symptoms Social History Tobacco Use Smoking status: Never Smokeless tobacco: Never Vaping Use Vaping status: Never Used Substance Use Topics Alcohol use: Yes Alcohol/week: 0.0 - 1.0 standard drinks of alcohol Drug use: No Current Outpatient Medications Medication Sig tamsulosin (FLOMAX) 0.4 mg Take 1 capsule by mouth daily at bedtime. gabapentin (NEURONTIN) 300 mg capsule Take 1 capsule by mouth once daily for 180 days. Patient should start on August 09, 2024. fluticasone (FLONASE) 50 mcg/actuation nasal spray Use 2 Sprays in each nostril once daily. Rinse mouth after use. cyanocobalamin (VITAMIN B-12) 1,000 mcg tab Take 1,000 mcg by mouth once daily. pravastatin (PRAVACHOL) 40 mg tablet Take 1 tablet by mouth daily at bedtime. omeprazole (PRILOSEC) 20 mg capsule Take 1 capsule by mouth as needed. 1/2 hr before meal. sildenafil (REVATIO) 20 [...] daily. Aspirin 81 mg tab Take 1 tabl (more content not included)... Normal [facility] Basic metabolic 2000 panelon 11-12-2024 Anion gap [Moles/Vol] 10 mmol/L Normal 8-15 [facility] Comment on above: Order Comment: Speci men Type: BLOOD SPECIMEN Ordering Facility: [facility] Address: [address] [place] [address] Performed By: #### 2 4321-2 #### [facility] CLIA [id number] [address] [place] [address] [place] [address] [place] Calcium [Mass/Vol] 9.4 mg/dL Normal 8.5-10.2 [facility] Comment on above: Order Comment: Speci men Type: BLOOD SPECIMEN Ordering Facility: [facility] Address: [address] [place] [address] Performed By: #### 2 4321-2 #### [facility] CLIA [id number] [address] [place], [place] [id number] [place] Chloride [Moles/Vol] 105 mmol/L Normal 98-107 [facility] Comment on above: Order Comment: Speci men Type: BLOOD SPECIMEN Ordering Facility: [facility] Address: [address] [place] [address] Performed By: #### 2 4321-2 #### [facility] CLIA [id number] [address] [place] [address] [place] CO2 [Moles/Vol] 25 mmol/L Normal 22-30 [facility] Comment on above: Order Comment: Speci men Type: BLOOD SPECIMEN Ordering Facility: [facility] Address: [address] [place] [address] Performed By: #### 2 4321-2 #### [facility] CLIA [id number] [address] [place] [address] [place] Creatinine [Mass/Vol] 1.22 mg/dL Normal 0.73-1.22 [facility] Comment on above: Order Comment: Speci men Type: BLOOD SPECIMEN Ordering Facility: [facility] Address: [address] [place] [address] Performed By: #### 2 4321-2 #### [facility] CLIA [id number] [address] [place] [address] [place] eGFRcr SerPlBld CKD-EPI 2020 58 mL/min/1.73m??? Low >=60 [facility] Comment on above: Order Comment: Speci men Type: BLOOD SPECIMEN Ordering Facility: [facility] Address: [address] [place], [place] [id number] Result Comment: Christina mated Glomerular Filtration Rate [...] GFR. Performed By: #### 2 4321-2 #### [facility] CLIA [id number] [address] [place] [address] [place] Glucose [Mass/Vol] 89 mg/dL Normal 74-99 [facility] Comment on above: Order Comment: Anai lui Type: BLOOD SPECIMEN Ordering Facility: [facility] Address: [address] [place] [address] Result Comment: The [place] Diabetes Association (ADA) provides guidance for cutoff [...] Standards of Medical Care in Diabetes 2016, [place] [employer] Association. Diabetes Care. 2016.39(Suppl 1). Performed By: #### 2 4321-2 #### [facility] CLIA [id number] [address] [place], [place] [address] [place] Potassium [Moles/Vol] 4.3 mmol/L Normal 3.7-5.1 [facility] Comment on above: Order Comment: Anai lui Type: BLOOD SPECIMEN Ordering Facility: [facility] Address: [address] [place] [address] Performed By: #### 2 4321-2 #### [facility] CLIA [id number] [address] [place], [place] [id number] [place] Sodium [Moles/Vol] 140 mmol/L Normal 136-144 [facility] Comment on above: Order Comment: Anai lui Type: BLOOD SPECIMEN Ordering Facility: [facility] Address: [address] [place] [address] Performed By: #### 2 4321-2 #### [facility] CLIA [id number] [address] [place] [address] [place] Urea nitrogen [Mass/Vol] 28 mg/dL High 9-24 [facility] Comment on above: Order Comment: Speci men Type: BLOOD SPECIMEN Ordering Facility: [facility] Address: [address] [place] [address] Performed By: #### 2 4321-2 #### [facility] CLIA [id number] [address] [place] [address] [place] Cardiology Visit Reporton Cardiology Visit Report [facility] [address] [place] [address] OFFICE VISIT Date of Service: 09/03/24 MR#: [id number] Acct: [id number] Name: HENRIK MA Rep #: [id number] 15 : 1940 Provider: MARK lam Age/Sex: 84/M Location[place] [facility] [place] Status: Signed HPI HPI History of Present Illness Details: HENRIK MA, is a 84 M who presents to the office today for a follow-up visit. He is a gentleman with a history of coronary artery disease status post angioplasty and stenting of his diagonal vessel in 2012. His last stress test was in 2017 during which no evidence of ischemia was noted. From a cardiac standpoint, the patient is doing well. He denies any palpitations, chest pain, pressure or heaviness. He denies SOB, Orthopnea, and PND. He does not have bleeding issues; no blood in urine, stool, or nosebleeds. He denies any decrease in energy level, myalgias, or claudication. He does not have edema, or sudden weight gain. He denies lightheadedness, dizziness, syncopal or near syncopal episodes, and headaches. Intake Vital Signs 08/03/23 11:36 09/03/24 09:52 Height 6 ft 6 ft Weight: 185 lb BMI 25.0 BP 138/74 H Blood Pressure Location Lt brachial Position Sitting Respiration 18 Pulse 61 Pulse Source Monitor Pulse Oximetry (%) 98 Intake Visit Reasons: 1 Y FU/MOVED FROM [facility] Product Safety Head Required: No Is patient in pain?: No Allergies cat dander Allergy (Verified 09/03/24 11:24) Anaphylaxis tree and shrub pollen Allergy (Verified 09/03/24 11:24) Shortness of breath Medications ???Medication ???Instructions ???Recorded ???Confirmed ???Type aspirin 81 mg tablet,delayed 81 mg PO DAILY 05/18/16 09/03/24 H istory release gabapentin 300 mg capsule 300 mg PO DAILY 11/16/17 09/03/24 History tamsulosin 0.4 mg capsule 0.4 mg PO DAILY #90 caps 11/20/18 09/03/24 History multivitamin 1 tab PO DAILY 11/21/19 09/03/24 H istory fluticasone propionate 50 2 spray intranasal DAILY PRN 12/3009/03/24 History mcg/actuation nasal allergy symptoms spray,suspension omeprazole 20 mg capsule,delayed 20 mg PO DAILY 12/30/21 09/03/24 H istory release pravastatin 40 mg tablet 40 mg PO DAILY #90 tabs 02/13/23 0 09/03/24 Rx nitroglycerin 0.4 mg sublingual 0.4 mg sublingual Q5-15M #25 tabs 11/06/23 09/03/24 Rx tablet metoprolol tartrate 50 mg tablet 50 mg PO BID #180 tabs 08/12/24 Rx Have you fallen in the past year?: No PFSH Medical History (Reviewed 09/03/24 @ 11:24 by Cristel Guerrero PRECISION AGRICULTURE TECHNICIAN, PRECISION AGRICULTURE TECHNICIAN-C) History of non-ST elevation myocardial infarction (NSTEMI) (04/24/12) Essential (primary) hypertension HLD (hyperlipidemia) Atherosclerosis of coronary artery of 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 pectoris Surgical History Hx laparoscopic cholecystectomy History of coronary artery stent placement (04/24/12) Family History Sister Diabetes Social History household members: spouse Smoking Status: Never smoker ROS Const Const: Negative for fatigue, weakness, headache(s) or frequent falls Eyes Eyes: Negative for blurry vision ENT ENT: Negative for headache(s), dizziness or Nosebleed/epistaxis Cardio Chest Pain: No Palpitations: No Edema: None Muscle aches with walking: None Resp Respiratory: Negative for SOB with activity, SOB at rest or SOB orthopnea SOB lying down GI GI: Negative nausea, vomiting, heartburn, bright, red blood in stools or black,tarry stools : Negative for hematuria Neuro Neuro: Negative for dizziness, lightheadedness, near syncope, syncope, frequent falls, headache(s), weakness or blurry vision Endo Endo: Negative for fatigue Cardiology Exam Const Appearance: cooperative, healthy appearing, no acute distress, well developed and well groomed Nutritional Appearance: average body habitus, well nourished and overweight Orientation: alert, awake and oriented x3 Head Head: normal to inspection, normocephalic and atraumatic Ears: hearing grossly normal bilaterally and external ears normal Nose: external nose normal and nares normal Face and Sinus: face symmetric Eyes General: appearance normal, both eyes and all related structures Eyelids: eyelids normal Conjunctivae: conjunctivae normal Pupils: PERRL Neck Neck: normal visual inspection, trachea midline and no JVD JVD: +5 Carotids: normal carotid upstroke and bounding pulses Chest Chest inspection: normal inspection of the chest, symmetric chest movement and normal respiratory effort Auscultation: Bilateral: Clear to Auscultation Cardio Palpation: normal PMI Rate: regular rate (more content not included)... Normal [facility] Bilirubin directOrdered By: Dana Harkins on 08-27-2024 Bilirubin.direct [Mass/Vol] 0.72 mg/dL High 0.00-0.30 [facility] Bilirubin, totalOrdered By: Dana Harkins on 08-27-2024 Bilirubin [Mass/Vol] 2.05 mg/dL High 0.00-1.30 [facility] Calculated very low density lipoprotein (VLDL) cholesterol measurementOrdered By: Dana Harkins on 08-27-2024 Calculated very low density lipoprotein (VLDL) cholesterol measurement 21 mg/dL 5-40 [facility] LDL calc ser/plasOrdered By: Dana Harkins on 08-27-2024 Cholesterol in LDL [Mass/Vol] 57 mg/dL [facility] Comment on above: Ootjiovlds=699-490 m g/dL & Higher Oxel=058 mg/dL or greater Laboratory - Chemistry and C hemistry - challengeOrdered By: Dana Harkins on 08-27-2024 AST [Catalytic activity/Vol] 26 U/L <38 [facility] Lipid Profileon 08-27-2024 CHOL:HDL 2.57 Normal [facility] Comment on above: Performed By: #### L 500.4100, L500.3400 #### [facility] Laboratory [address] [place], [place], [address] Cholesterol [Mass/Vol] 128 mg/dL Normal <=200 [facility] Comment on above: Result Comment: Chol esterol level, Desirable <200 mg/dL Borderline high cholesterol 200-239 mg/dL High cholesterol >=240 mg/dL Recommendations of the NCEP Adult Treatment Panel for the following risk-cutoff thresholds for the [place] population. Performed By: #### L 500.4100, L500.3400 #### [facility] [address] [place], [place], [address] Cholesterol in HDL [Mass/Vol] 50 mg/dL Normal [facility] Comment on above: Result Comment: Claudette onal Cholesterol Education Program (NCEP) guidelines: <40 mg/dL: Low HDL-cholesterol (major risk factor for CHD) >= 60 mg/dL: High HDL-cholesterol (negative risk factor for CHD) HDL-cholesterol is affected by a number of factors, e.g. smoking, exercise, hormones, sex and age. Performed By: #### L 500.4100, L500.3400 #### [facility] [address] [place], [address] Cholesterol in LDL [Mass/Vol] 57 mg/dL Normal [facility] Comment on above: Result Comment: Bord sqfiwo=904-362 mg/dL Higher Jouw=273 mg/dL or greater Performed By: #### L 500.4100, L500.3400 #### [facility] [address] [place], [address] Cholesterol in VLDL [Mass/Vol] 21 mg/dL Normal 5-40 [facility] Comment on above: Performed By: #### L 500.4100, L500.3400 #### [facility] [address] [place], [address] Triglyceride [Mass/Vol] 105 mg/dL Normal [facility] Comment on above: Result Comment: The drugs N-Acetylcysteine and Metamizole may falsely depress this assay. Normal range: <150 mg/dL Borderline High: 150-199 mg/dL High: 200-499 mg/dL Very High: >500 mg/dL Performed By: #### L 500.4100, L500.3400 #### [facility] [address] [place], [address] Liver Profileon 08-27-2024 Albumin [Mass/Vol] 4.0 g/dL Normal 3.4-4.8 [facility] Comment on above: Performed By: #### L 500.4100, L500.3400 #### [facility] [address] [place], [address] ALK PHOS 70 U/L Normal 40-129 [facility] Comment on above: Performed By: #### L 500.4100, L500.3400 #### [facility] [address] [place], [address] ALT [Catalytic activity/Vol] 19 U/L Normal <=46 [facility] Comment on above: Performed By: #### L 500.4100, L500.3400 #### [facility] [address] [place], [address] AST [Catalytic activity/Vol] 26 U/L Normal <=37 [facility] Comment on above: Performed By: #### L 500.4100, L500.3400 #### [facility] [address] [place], [address] Bilirubin [Mass/Vol] 2.05 mg/dL High 0.00-1.30 [facility] Comment on above: Performed By: #### L 500.4100, L500.3400 #### [facility] [address] [place], [address] Bilirubin.direct [Mass/Vol] 0.72 mg/dL High 0.00-0.30 [facility] Comment on above: Performed By: #### L 500.4100, L500.3400 #### [facility] [address] [place], [address] Globulin (S) [Mass/Vol] 2.4 g/dL Normal 2.2-4.2 [facility] Comment on above: Performed By: #### L 500.4100, L500.3400 #### [facility] [address] [place], [address] T PROT 6.4 g/dL Normal 5.9-8.4 [facility] Comment on above: Performed By: #### L 500.4100, L500.3400 #### [facility] [address] [place], [address] Screening total cholesterol/ high density lipoprotein (HDL) cholesterol ratioOrdered By: Dana Harkins on 08-27-2024 Cholesterol.total/Sirena sterol in HDL [Mass ratio] 2.57 {ratio} [facility] Serum globulin measurementOr dered By: Dana Harkins on 08-27-2024 Globulin (S) [Mass/Vol] 2.4 g/dL 2.2-4.2 [facility] Serum or plasma alanine montague otransferase (ALT) measurementOrdered By: Dana Harkins on 08-27-2024 ALT [Catalytic activity/Vol] 19 U/L <47 [facility] Serum or plasma albumin dian urement (mass/volume)Ordered By: Dana Harkins on 08-27-2024 Albumin [Mass/Vol] 4.0 g/dL 3.4-4.8 [facility] Serum or plasma alkaline rissa sphatase measurementOrdered By: Dana Harkins on 08-27-2024 ALP [Catalytic activity/Vol] 70 U/L 40-129 [facility] Serum or plasma cholesterol in HDL measurement (mass/volume)Ordered By: Dana Harkins on 08-27-2024 Cholesterol in HDL [Mass/Vol] 50 mg/dL >40 [facility] Comment on above: National Cholesterol Education Program (NCEP) guidelines:<40 mg/dL: Low HDL-cholesterol (major risk factor for CHD)>= 60 mg/dL: High HDL-cholesterol (negative risk factor for CHD)HDL-cholesterol is affected by a number of factors, e.g. smoking, exercise, hormones, sex and age. Serum or plasma cholesterol measurement (mass/volume)Ordered By: Dana Harkins on 08-27-2024 Cholesterol [Mass/Vol] 128 mg/dL <201 [facility] Comment on above: Cholesterol level, D esirable <200 mg/dLBorderline high cholesterol 200-239 mg/dLHigh cholesterol >=240 mg/dLRecommendations of the NCEP Adult Treatment Panel for the following risk-cutoff thresholds for the [place] population. Total proteinOrdered By: Joe Harkins on 08-27-2024 Protein [Mass/Vol] 6.4 g/dL 5.9-8.4 [facility] Triglycerides measurementOrd ered By: Dana Harkins on 08-27-2024 Triglyceride [Mass/Vol] 105 mg/dL <199 [facility] Comment on above: The drugs N-Acetylcy steine and Metamizole may falsely depress this assay. Normal range: <150 mg/dLBorderline High: 150-199 mg/dLHigh: 200-499 mg/dLVery High: >500 mg/dL CNPNon 07-24-2024 CNPN Telephone (INTMWS) HENRIK MA ([id number]) 1940 M Date Time Provider Department 07/24/24 GIOVANNI PERSAUD INTMWS During your visit today, we recorded the following information about you: Sapna Marcos LPN 07/24/2024 10:43 AM Signed Patient calling asking to have Gabapentin 300 mg changed, he has been taking the medication twice daily. [facility] will not refill his rx for another 20 days since rx only says take once daily. Patient said PCP told him some time ago he could take 2 daily. Could not find any mention in office notes. Patient said when his pain is worse he takes 2 daily. Please advise Giovanni Persaud MD 07/24/2024 1:43 PM Signed We had discussed dose reduction last year. What pain is worse? When did this pain start getting worse? Phyllis Cintron LPN 07/24/2024 2:13 PM Signed Henrik jackson to take Gabapentin as written, when he does have a flare-up of Trigeminal pain Patient can take 1 extra tablet through the day, he has been having flare-ups. Take medication at bedtime and it helps him to sleep better. Giovanni Delgado LPN, MD 07/24/2024 3:10 PM Signed PDMP website checked and validated. Gabapentin is being prescribed by a doctor in [place]. Patient should discuss this concern with that prescribing physician. 07/24/2024 by MD Kimani Rainey Brittany L, MA 07/25/2024 4:45 PM Signed Patient active MyChart. Patient notified via [facility] message. DOUG Knox Stephanie 07/26/2024 9:27 AM Signed Patient presented at [facility] re: this issues. Patient states that Dr. Persaud ordered it for the patient in the past (prior to the gallbladder surgery) and would like to go back to Dr. Persaud ordering this medication. Please assist/advise patient via phone and MyChart. Carol Fernando Allergies As of Date: 07/24/2024 Noted Allergy Reaction CATS 07/08/2005 TREES 07/08/2005 Date Reviewed: 05/23/2024 Reviewed by: Phyllis Cintron LPN - Fully Assessed Reason for Visit: Refill Request [94] Visit Diagnosis:Trigeminal neuralgia [G50.0] Prescriptions as of 07/26/2024 - gabapentin (NEURONTIN) 300 mg capsule Take 1 capsule by mouth once daily. Prescribed by Aaron Mckeon DO. - fluticasone (FLONASE) 50 mcg/actuation nasal spray Use 2 Sprays in each nostril once daily. Rinse mouth after use. - cyanocobalamin (VITAMIN B-12) 1,000 mcg tab Take 1,000 mcg by mouth once daily. - pravastatin (PRAVACHOL) 40 mg tablet Take 1 tablet by mouth daily at bedtime. - omeprazole (PRILOSEC) 20 mg capsule Take 1 capsule by mouth as needed. 1/2 hr before meal. - tamsulosin (FLOMAX) 0.4 mg Take 1 capsule by mouth daily at bedtime. - sildenafil (REVATIO) 20 mg tablet Take 2-3 tablets by mouth once daily as needed (erectile dysfunction). - multivitamin tablet Take 1 tablet by [...] with food. Problem List As Of Date 07/24/2024 Noted Resolved Esophageal reflux [K21.9] 04/05/2005 Essential [...] stage 3, GFR 30-59*08/04/2016 Subluxation of tarsometatarsal j (more content not included)... Normal [facility] CNOVon 05-23-2024 CNOV Office Visit (INTMWS ) HENRIK MA ([id number]) 1940 M Date Time Provider Department 05/23/24 8:40 AM GIOVANNI PERSAUD INTMWS During your visit today, we recorded the following information about you: Temperature Pulse Respiration Blood pressure 97.7 degrees 64/minute 16/minute 120/64 Weight 84.3 kg Giovanni Persaud MD 05/23/2024 9:00 AM Signed This note was created using [employer]. Subjective Henrik Ma is a 83 year [...] Kidney Disease) Stage 3, Gfr 30-59 Ml/Min ([facility]) Bph With Obstruction/Lower Urinary Tract [...] current medications 2. 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, unspecified vessel or [...] F/U 6 (more content not included)... Normal [facility] Basic metabolic 2000 panelon 05-16-2024 Anion gap [Moles/Vol] 12 mmol/L Normal 8-15 [facility] Comment on above: Order Comment: Speci men Type: BLOOD SPECIMEN Ordering Facility: [facility] Address: [address] [place] [address] Performed By: #### 2 4321-2 #### [facility] CLIA [id number] [address] [place] [address] [place] [address] [place] Calcium [Mass/Vol] 9.6 mg/dL Normal 8.5-10.2 [facility] Comment on above: Order Comment: Speci men Type: BLOOD SPECIMEN Ordering Facility: [facility] Address: [address] [place] [address] Performed By: #### 2 4321-2 #### [facility] CLIA [id number] [address] [place] [address] [place] Chloride [Moles/Vol] 105 mmol/L Normal 98-107 [facility] Comment on above: Order Comment: Speci men Type: BLOOD SPECIMEN Ordering Facility: [facility] Address: [address] [place] [address] Performed By: #### 2 4321-2 #### [facility] CLIA [id number] [address] [place] [address] [place] CO2 [Moles/Vol] 25 mmol/L Normal 22-30 [facility] Comment on above: Order Comment: Speci men Type: BLOOD SPECIMEN Ordering Facility: [facility] Address: [address] [place] [address] Performed By: #### 2 4321-2 #### [facility] CLIA [id number] [address] [place] [address] [place] Creatinine [Mass/Vol] 1.30 mg/dL High 0.73-1.22 [facility] Comment on above: Order Comment: Speci men Type: BLOOD SPECIMEN Ordering Facility: [facility] Address: [address] [place] [address] Performed By: #### 2 4321-2 #### [facility] CLIA [id number] [address] [place] [address] [place] Creatinine and Glomerular filtration rate.predicted panel (S/P/Bld) 54 mL/min/1.73m??? Low >=60 [facility] Comment on above: Order Comment: Speci men Type: BLOOD SPECIMEN Ordering Facility: [facility] Address: [address] [place] [address] Result Comment: Christina mated Glomerular Filtration Rate [...] GFR. Performed By: #### 2 4321-2 #### [facility] CLIA [id number] [address] [place] [address] [place] Glucose [Mass/Vol] 94 mg/dL Normal 74-99 [facility] Comment on above: Order Comment: Anai lui Type: BLOOD SPECIMEN Ordering Facility: [facility] Address: [address] [place] [address] Result Comment: The [place] [employer] (ADA) provides guidance for cutoff [...] Standards of Medical Care in Diabetes 2016, [place] [employer]. Diabetes Care. 2016.39(Suppl 1). Performed By: #### 2 4321-2 #### [facility] CLIA [id number] [address] [place] [address] [place] Potassium [Moles/Vol] 4.4 mmol/L Normal 3.7-5.1 [facility] Comment on above: Order Comment: Anai lui Type: BLOOD SPECIMEN Ordering Facility: [facility] Address: [address] [place] [address] Performed By: #### 2 4321-2 #### [facility] CLIA [id number] [address] [place] [address] [place] Sodium [Moles/Vol] 142 mmol/L Normal 136-144 [facility] Comment on above: Order Comment: Speci men Type: BLOOD SPECIMEN Ordering Facility: [facility] Address: [address] [place] [address] Performed By: #### 2 4321-2 #### [facility] CLIA [id number] [address] [place] [address] [place] Urea nitrogen [Mass/Vol] 32 mg/dL High 9-24 [facility] Comment on above: Order Comment: Speci men Type: BLOOD SPECIMEN Ordering Facility: [facility] Address: [address] [place] [address] Performed By: #### 2 4321-2 #### [facility] CLIA [id number] [address] [place] [address] [place] CBC panel Auto (Bld)on 05-16 Erythrocyte distribution width (RBC) [Ratio] 12.2 % Normal 11.5-15.0 [facility] Comment on above: Order Comment: Speci men Type: BLOOD SPECIMEN Ordering Facility: [facility] Address: [address] [place] [address] Performed By: #### 2 4321-2 #### [facility] CLIA [id number] [address] [place] [address] [place] Hematocrit (Bld) [Volume fraction] 44.8 % Normal 39.0-51.0 [facility] Comment on above: Order Comment: Speci men Type: BLOOD SPECIMEN Ordering Facility: [facility] Address: [address] [place] [address] Performed By: #### 2 4321-2 #### [facility] CLIA [id number] [address] [place] [address] [place] Hemoglobin (Bld) [Mass/Vol] 15.3 g/dL Normal 13.0-17.0 [facility] Comment on above: Order Comment: Speci men Type: BLOOD SPECIMEN Ordering Facility: [facility] Address: [address] [place] [address] Performed By: #### 2 4321-2 #### [facility] CLIA [id number] [address] [place] [address] [place] MCH (RBC) [Entitic mass] 32.3 pg Normal 26.0-34.0 [facility] Comment on above: Order Comment: Speci men Type: BLOOD SPECIMEN Ordering Facility: [facility] Address: [address] [place] [address] Performed By: #### 2 4321-2 #### [facility] CLIA [id number] [address] [place] [address] [place] MCHC (RBC) [Mass/Vol] 34.2 g/dL Normal 30.5-36.0 [facility] Comment on above: Order Comment: Speci men Type: BLOOD SPECIMEN Ordering Facility: [facility] Address: [address] [place] [address] Performed By: #### 2 4321-2 #### [facility] CLIA [id number] [address] [place] [address] [place] MCV (RBC) [Entitic vol] 94.5 fL Normal 80.0-100.0 [facility] Comment on above: Order Comment: Speci men Type: BLOOD SPECIMEN Ordering Facility: [facility] Address: [address] [place] [address] Performed By: #### 2 4321-2 #### [facility] CLIA [id number] [address] [place] [address] [place] Nucleated RBC (Bld) [#/Vol] 10*3/uL Normal <0.01 [facility] Comment on above: Order Comment: Speci men Type: BLOOD SPECIMEN Ordering Facility: [facility] Address: [address] [place] [address] Performed By: #### 2 4321-2 #### [facility] CLIA [id number] [address] [place] [address] [place] Platelet mean volume (Bld) [Entitic vol] 12.2 fL Normal 9.0-12.7 [facility] Comment on above: Order Comment: Speci men Type: BLOOD SPECIMEN Ordering Facility: [facility] Address: [address] [place] [address] Performed By: #### 2 4321-2 #### [facility] CLIA [id number] [address] [place] [address] [place] Platelets (Bld) [#/Vol] 165 10*3/uL Normal 150-400 [facility] Comment on above: Order Comment: Speci men Type: BLOOD SPECIMEN Ordering Facility: [facility] Address: [address] [place] [address] Performed By: #### 2 4321-2 #### [facility] CLIA [id number] [address] [place] [address] [place] RBC (Bld) [#/Vol] 4.74 10*6/uL Normal 4.20-6.00 [facility] Comment on above: Order Comment: Speci men Type: BLOOD SPECIMEN Ordering Facility: [facility] Address: [address] [place] [address] Performed By: #### 2 4321-2 #### [facility] CLIA [id number] [address] [place] [address] [place] WBC (Bld) [#/Vol] 6.76 10*3/uL Normal 3.70-11.00 [facility] Comment on above: Order Comment: Speci men Type: BLOOD SPECIMEN Ordering Facility: [facility] Address: [address] [place] [address] Performed By: #### 2 4321-2 #### [facility] CLIA [id number] [address] [place] [address] [place] Basic metabolic 2000 panelon 01-23-2024 Anion gap [Moles/Vol] 10 mmol/L Normal 8-15 [facility] Comment on above: Order Comment: Speci men Type: BLOOD SPECIMEN Ordering Facility: [facility] Address: [address] [place] [address] Performed By: #### 2 4321-2 #### [facility] CLIA [id number] [address] [place] [address] [place] Calcium [Mass/Vol] 9.5 mg/dL Normal 8.5-10.2 [facility] Comment on above: Order Comment: Speci men Type: BLOOD SPECIMEN Ordering Facility: [facility] Address: [address] [place] [address] Performed By: #### 2 4321-2 #### [facility] CLIA [id number] [address] [place] [address] [place] Chloride [Moles/Vol] 106 mmol/L Normal 98-107 [facility] Comment on above: Order Comment: Speci men Type: BLOOD SPECIMEN Ordering Facility: [facility] Address: [address] [place] [address] Performed By: #### 2 4321-2 #### [facility] CLIA [id number] [address] [place] [address] [place] CO2 [Moles/Vol] 26 mmol/L Normal 22-30 [facility] Comment on above: Order Comment: Speci men Type: BLOOD SPECIMEN Ordering Facility: [facility] Address: [address] [place], [place] [address] Performed By: #### 2 4321-2 #### [facility] CLIA [id number] [address] [place] [address] [place] Creatinine [Mass/Vol] 1.28 mg/dL High 0.73-1.22 [facility] Comment on above: Order Comment: Speci men Type: BLOOD SPECIMEN Ordering Facility: [facility] Address: [address] [place] [address] Performed By: #### 2 4321-2 #### [facility] CLIA [id number] [address] [place] [address] [place] Creatinine and Glomerular filtration rate.predicted panel (S/P/Bld) 55 mL/min/1.73m??? Low >=60 [facility] Comment on above: Order Comment: Anai lui Type: BLOOD SPECIMEN Ordering Facility: [facility] Address: [address] [place] [address] Result Comment: Christina mated Glomerular Filtration Rate [...] GFR. Performed By: #### 2 4321-2 #### [facility] CLIA [id number] [address] [place] [address] [place] Glucose [Mass/Vol] 90 mg/dL Normal 74-99 [facility] Comment on above: Order Comment: Anai lui Type: BLOOD SPECIMEN Ordering Facility: [facility] Address: [address] [place] [address] Result Comment: The [place] [employer] (ADA) provides guidance for cutoff [...] Standards of Medical Care in Diabetes 2016, [place] [employer]. Diabetes Care. 2016.39(Suppl 1). Performed By: #### 2 4321-2 #### [facility] CLIA [id number] [address] [place] [address] [place] Potassium [Moles/Vol] 4.1 mmol/L Normal 3.7-5.1 [facility] Comment on above: Order Comment: Speci men Type: BLOOD SPECIMEN Ordering Facility: [facility] Address: [address] [place] [address] Performed By: #### 2 4321-2 #### [facility] CLIA [id number] [address] [place] [address] [place] Sodium [Moles/Vol] 142 mmol/L Normal 136-144 [facility] Comment on above: Order Comment: Speci men Type: BLOOD SPECIMEN Ordering Facility: [facility] Address: [address] [place] [address] Performed By: #### 2 4321-2 #### [facility] CLIA [id number] [address] [place] [address] [place] Urea nitrogen [Mass/Vol] 24 mg/dL Normal 9-24 [facility] Comment on above: Order Comment: Speci men Type: BLOOD SPECIMEN Ordering Facility: [facility] Address: [address] [place] [address] Performed By: #### 2 4321-2 #### [facility] CLIA [id number] [address] [place] [address] [place] FECAL LACTOFERRIN/LEUKOCYTES on 01-04-2024 Lactoferrin IA Ql (Stl) Negative for lactoferrin, which may indicate the absence of fecal white blood cells Normal Negative [facility] Comment on above: Order Comment: Speci men Type: BLOOD SPECIMEN Ordering Facility: [facility] Address: [address] [place] [address] Performed By: #### 2 4321-2 #### [facility] CLIA [id number] [address] [place] [address] [place] [address] [facility] Sophia 01-01-2024 [facility] Telephone (INTMWS) HENRIK MA ([id number]) 1940 M Date Time Provider Department 01/01/24 GIOVANNI PERSAUD INTMWS During your visit today, [...] type [R19.7] Order(s):FECAL LACTOFERRIN/LEUKOCYTES [SQFECWBC] Order #: [id number] FUTURE Prescriptions as of 01/01/2024 - omeprazole [...] Status:Closed by MARLYS MILLER on 01/01/24 Normal [facility] Basic metabolic 2000 panelon 12-28-2023 Anion gap [Moles/Vol] 9 mmol/L Normal 8-15 [facility] Comment on above: Order Comment: Speci men Type: BLOOD SPECIMEN Ordering Facility: [facility] Address: [address] [place] [address] Performed By: #### 2 4321-2 #### [facility] CLIA [id number] [address] [place] [address] [place] Calcium [Mass/Vol] 9.7 mg/dL Normal 8.5-10.2 [facility] Comment on above: Order Comment: Speci men Type: BLOOD SPECIMEN Ordering Facility: [facility] Address: [address] [place] [address] Performed By: #### 2 4321-2 #### [facility] CLIA [id number] [address] [place] [address] [place] Chloride [Moles/Vol] 104 mmol/L Normal 98-107 [facility] Comment on above: Order Comment: Speci men Type: BLOOD SPECIMEN Ordering Facility: [facility] Address: [address] [place] [address] Performed By: #### 2 4321-2 #### [facility] CLIA [id number] [address] [place] [address] [place] CO2 [Moles/Vol] 28 mmol/L Normal 22-30 [facility] Comment on above: Order Comment: Speci men Type: BLOOD SPECIMEN Ordering Facility: [facility] Address: [address] [place] [address] Performed By: #### 2 4321-2 #### [facility] CLIA [id number] [address] [place] [address] [place] Creatinine [Mass/Vol] 1.28 mg/dL High 0.73-1.22 [facility] Comment on above: Order Comment: Speci men Type: BLOOD SPECIMEN Ordering Facility: [facility] Address: [address] [place] [address] Performed By: #### 2 4321-2 #### [facility] CLIA [id number] [address] [place] [address] [place] Creatinine and Glomerular filtration rate.predicted panel (S/P/Bld) 55 mL/min/1.73m??? Low >=60 [facility] Comment on above: Order Comment: Speci men Type: BLOOD SPECIMEN Ordering Facility: [facility] Address: [address] [place] [address] Result Comment: Christina mated Glomerular Filtration Rate [...] GFR. Performed By: #### 2 4321-2 #### [facility] CLIA [id number] [address] [place] [address] [place] Glucose [Mass/Vol] 106 mg/dL High 74-99 [facility] Comment on above: Order Comment: Anai lui Type: BLOOD SPECIMEN Ordering Facility: [facility] Address: [address] [place] [address] Result Comment: The [place] [employer] Association (ADA) provides guidance for cutoff [...] Standards of Medical Care in Diabetes 2016, [place] [employer]. Diabetes Care. 2016.39(Suppl 1). Performed By: #### 2 4321-2 #### [facility] CLIA [id number] [address] [place] [address] [place] Potassium [Moles/Vol] 4.8 mmol/L Normal 3.7-5.1 [facility] Comment on above: Order Comment: Stacii hu Type: BLOOD SPECIMEN Ordering Facility: [facility] Address: [address] [place] [address] Performed By: #### 2 4321-2 #### [facility] CLIA [id number] [address] [place] [address] [place] Sodium [Moles/Vol] 141 mmol/L Normal 136-144 [facility] Comment on above: Order Comment: Anai lui Type: BLOOD SPECIMEN Ordering Facility: [facility] Address: [address] [place] [address] Performed By: #### 2 4321-2 #### [facility] CLIA [id number] [address] [place] [address] [place] Urea nitrogen [Mass/Vol] 33 mg/dL High 9-24 [facility] Comment on above: Order Comment: Speci men Type: BLOOD SPECIMEN Ordering Facility: [facility] Address: [address] [place] [address] Performed By: #### 2 4321-2 #### [facility] CLIA [id number] [address] [place] [address] [place] CBC panel Auto (Bld)on 12-27 Erythrocyte distribution width (RBC) [Ratio] 12.3 % Normal 11.5-15.0 [facility] Comment on above: Order Comment: Speci men Type: BLOOD SPECIMEN Ordering Facility: [facility] Address: [address] [place] [address] Performed By: #### 2 4321-2 #### [facility] CLIA [id number] [address] [place] [address] [place] Hematocrit (Bld) [Volume fraction] 46.0 % Normal 39.0-51.0 [facility] Comment on above: Order Comment: Speci men Type: BLOOD SPECIMEN Ordering Facility: [facility] Address: [address] [place] [address] Performed By: #### 2 4321-2 #### [facility] CLIA [id number] [address] [place] [address] [place] Hemoglobin (Bld) [Mass/Vol] 15.2 g/dL Normal 13.0-17.0 [facility] Comment on above: Order Comment: Speci men Type: BLOOD SPECIMEN Ordering Facility: [facility] Address: [address] [place] [address] Performed By: #### 2 4321-2 #### [facility] CLIA [id number] [address] [place] [address] [place] MCH (RBC) [Entitic mass] 31.6 pg Normal 26.0-34.0 [facility] Comment on above: Order Comment: Speci men Type: BLOOD SPECIMEN Ordering Facility: [facility] Address: [address] [place] [address] Performed By: #### 2 4321-2 #### [facility] CLIA [id number] [address] [place] [address] [place] MCHC (RBC) [Mass/Vol] 33.0 g/dL Normal 30.5-36.0 [facility] Comment on above: Order Comment: Speci men Type: BLOOD SPECIMEN Ordering Facility: [facility] Address: [address] [place] [address] Performed By: #### 2 4321-2 #### [facility] CLIA [id number] [address] [place] [address] [place] MCV (RBC) [Entitic vol] 95.6 fL Normal 80.0-100.0 [facility] Comment on above: Order Comment: Speci men Type: BLOOD SPECIMEN Ordering Facility: [facility] Address: [address] [place] [address] Performed By: #### 2 4321-2 #### [facility] CLIA [id number] [address] [place] [address] [place] Nucleated RBC (Bld) [#/Vol] 10*3/uL Normal <0.01 [facility] Comment on above: Order Comment: Speci men Type: BLOOD SPECIMEN Ordering Facility: [facility] Address: [address] [place] [address] Performed By: #### 2 4321-2 #### [facility] CLIA [id number] [address] [place] [address] [place] Platelet mean volume (Bld) [Entitic vol] 12.6 fL Normal 9.0-12.7 [facility] Comment on above: Order Comment: Speci men Type: BLOOD SPECIMEN Ordering Facility: [facility] Address: [address] [place] [address] Performed By: #### 2 4321-2 #### [facility] CLIA [id number] [address] [place] [address] [place] Platelets (Bld) [#/Vol] 178 10*3/uL Normal 150-400 [facility] Comment on above: Order Comment: Speci men Type: BLOOD SPECIMEN Ordering Facility: [facility] Address: [address] [place] [address] Performed By: #### 2 4321-2 #### [facility] CLIA [id number] [address] [place] [address] [place] RBC (Bld) [#/Vol] 4.81 10*6/uL Normal 4.20-6.00 [facility] Comment on above: Order Comment: Speci men Type: BLOOD SPECIMEN Ordering Facility: [facility] Address: [address] [place] [address] Performed By: #### 2 4321-2 #### [facility] CLIA [id number] [address] [place] [address] [place] WBC (Bld) [#/Vol] 6.42 10*3/uL Normal 3.70-11.00 [facility] Comment on above: Order Comment: Speci men Type: BLOOD SPECIMEN Ordering Facility: [facility] Address: [address] [place] [address] Performed By: #### 2 4321-2 #### [facility] CLIA [id number] [address] [place] [address] [place] CNOVon 12-28-2023 CNOV Office Visit (INTMWS ) HENRIK MA ([id number]) 1940 M Date Time Provider Department 12/28/23 2:20 PM GIOVANNI PERSAUD INTMWS During your visit today, we recorded the following information about you: Temperature Pulse Respiration Blood pressure 97 degrees 60/minute 16/minute 126/64 Weight 82.5 kg Giovanni Persaud MD 12/28/2023 2:30 PM Signed This note was created using [employer]. Subjective Henrik Ma is a 83 year [...] Kidney Disease) Stage 3, Gfr 30-59 Ml/Min ([facility]) Bph With Obstruction/Lower Urinary Tract [...] [R19.7] Order(s):COMPLETE BLOOD COUNT [SQCBC] Order #: [id number] FUTURE BASIC METABOLIC PANEL [SQBMP] Order #: [id number] FUTURE FECAL LACTOFERRIN/LEUKOCYTES [SQFECWBC] Order #: [id number]. #:[id number] Prescriptions as of 01/01/2024 - omeprazole (PRILOSEC) [...] Rinse mouth (more content not included)... Normal [facility] Whole blood hemoglobin A1c/t otal hemoglobin ratio (mass fraction)Ordered By: Lupillo Meyer on 08-03-2023 HbA1c (Bld) [Mass fraction] 5.2 % 3.8-5.6 [facility] Comment on above: Normal < 5.7 % Predi abetic 5.7 - 6.4 % Diabetic >or= 6.5 % Please note range changes. Basophil percentageOrdered B y: Lupillo Mitch on 08-01-2023 Bilirubin [Mass/Vol] 1.30 mg/dL 0.20-1.00 [facility] Comment on above: For patients on eltr ombopag therapy, use of Dimension Hankamer TBIL is not recommended. Cholesterol [Mass/Vol] 138 mg/dL <200 [facility] Comment on above: <200 mg/dL Desirable 200-240 mg/dL Borderline >240 mg/dL High Risk Protein [Mass/Vol] 7.0 g/dL 6.4-8.2 [facility] Triglyceride [Mass/Vol] 135 mg/dL <199 [facility] Comment on above: The drugs N-Acetylcy steine and Metamizole may falsely depress this assay.Serum Triglycerides Reference Interval Normal <150 mg/dL Borderline high 150 - 199 mg/dL High 200 - 499 mg/dL Very High > or = 500 mg/dL Direct bilirubinOrdered By: Lupillojolanta Meyer on 08-01-2023 Bilirubin.direct [Mass/Vol] 0.28 mg/dL 0.00-0.30 [facility] Laboratory - Chemistry and C hemistry - challengeOrdered By: Lupilloángel Meyer on 08-01-2023 ALP [Catalytic activity/Vol] 82 U/L 45-117 [facility] ALT [Catalytic activity/Vol] 15 U/L 16-61 [facility] Cholesterol in HDL [Mass/Vol] 41 mg/dL >40 [facility] Comment on above: The drugs N-Acetylcy steine and Metamizole may falsely depress this assay. Reference Range HDL <40 mg/dL Low HDL Cholesterol HDL >or= 60 mg/dL High HDL Cholesterol Cholesterol in LDL [Mass/Vol] 70 mg/dL 0-130 [facility] Globulin (S) [Mass/Vol] 3.8 g/dL 2.2-4.2 [facility] No Panel InformationOrdered By: Lupillo Meyer on 08-01-2023 VLDL Cholesterol 27 mg/dL 5-40 [facility] Thin prep Papanicolaou smear with manual screeningOrdered By: Kiester Mitch on 08-01-2023 Thin prep Papanicolaou smear with manual screening 3.2 g/dL 3.2-5.0 [facility] Thin prep Papanicolaou smear with manual screening 20 U/L 15-37 [facility] CNOVon 06-19-2023 CNOV Office Visit ([id number]) HENRIK MA ([id number]) 1940 M Date Time Provider Department 06/19/23 11:30 AM JAUN LEBLANC [id number] During your visit today, we recorded the [...] kidney disease) stage 3, GFR 30-59 ml/min ([facility]) 08/04/2016 Esophageal reflux 04/05/2005 Essential hypertension, benign 04/05/2005 Hemangioma of skin and subcutaneous tissue Hydronephrosis 06/30/2022 Mild left Hydronephrosis of left kidney 07/11/2022 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 Hi, DPM Trigeminal neuralgia Ulcerative (chronic) proctitis ([facility]) 08/2003 Unspecified cardiovascular disease mild CAD PAST [...] This office note has been created using ElectraTherm, a speech recognition software program, and may [...] Visit: Post Op [174] Cmt: Lap sirena 0 Primary Visit Diagnosis:S/P laparoscopic cholecystectomy [Z90.49] Prescriptions as of 06/19/2023 - gabapentin (NEURONTIN) 300 mg capsule Take 1 capsule by mouth once daily. - acetaminophen (TYLENOL) 325 mg tablet Take 2 tablets by shari (more content not included)... [facility] AST SerPl-cCncon 06-01-2023 AST [Catalytic activity/Vol] 64 U/L High 8-34 [facility] Comment on above: Order Comment: Speci men Type: BLOOD SPECIMEN Ordering Facility: [facility] Address: [address] [place] [address] Result Comment: Resu lts may be falsely depressed after the administration of Sulfasalazine and/or Sulfapyridine. Performed By: #### 3 4528-0, 41825-0 #### [facility] CLIA [id number] [address] [place] [address] [place] CBC W Auto Differential pane l (Bld)on 06-01-2023 Basophils (Bld) [#/Vol] 0.03 10*3/uL Normal <0.11 [facility] Comment on above: Order Comment: Speci men Type: BLOOD SPECIMEN Ordering Facility: [facility] Address: [address] [place] [address] Performed By: #### 5 8410-2 #### [facility] CLIA [id number] [address] [place] [address] [place] Basophils/100 WBC (Bld) 0.2 % Normal [facility] Comment on above: Order Comment: Speci men Type: BLOOD SPECIMEN Ordering Facility: [facility] Address: [address] [place] [address] Performed By: #### 5 8410-2 #### [facility] CLIA [id number] [address] [place] [address] [place] Differential cell count method Nom (Bld) Auto Normal [facility] Comment on above: Order Comment: Speci men Type: BLOOD SPECIMEN Ordering Facility: [facility] Address: [address] [place] [address] Performed By: #### 5 8410-2 #### [facility] CLIA [id number] [address] [place] [address] [place] Eosinophils (Bld) [#/Vol] 10*3/uL Normal <0.46 [facility] Comment on above: Order Comment: Speci men Type: BLOOD SPECIMEN Ordering Facility: [facility] Address: [address] [place] [address] Performed By: #### 5 8410-2 #### [facility] CLIA [id number] [address] [place] [address] [place] Eosinophils/100 WBC (Bld) 0.0 % Normal [facility] Comment on above: Order Comment: Speci men Type: BLOOD SPECIMEN Ordering Facility: [facility] Address: [address] [place] [address] Performed By: #### 5 8410-2 #### [facility] CLIA [id number] [address] [place] [address] [place] Erythrocyte distribution width (RBC) [Ratio] 13.8 % Normal 11.5-15.0 [facility] Comment on above: Order Comment: Speci men Type: BLOOD SPECIMEN Ordering Facility: [facility] Address: [address] [place] [address] Performed By: #### 5 8410-2 #### [facility] CLIA [id number] [address] [place] [address] [place] Hematocrit (Bld) [Volume fraction] 35.9 % Low 39.0-51.0 [facility] Comment on above: Order Comment: Speci men Type: BLOOD SPECIMEN Ordering Facility: [facility] Address: [address] [place] [address] Performed By: #### 5 8410-2 #### [facility] CLIA [id number] [address] [place] [address] [place] Hemoglobin (Bld) [Mass/Vol] 12.3 g/dL Low 13.0-17.0 [facility] Comment on above: Order Comment: Speci men Type: BLOOD SPECIMEN Ordering Facility: [facility] Address: [address] [place] [address] Performed By: #### 5 8410-2 #### [facility] CLIA [id number] [address] [place] [address] [place] Immature granulocytes (Bld) [#/Vol] 0.08 10*3/uL Normal <0.10 [facility] Comment on above: Order Comment: Speci men Type: BLOOD SPECIMEN Ordering Facility: [facility] Address: [address] [place] [address] Performed By: #### 5 8410-2 #### [facility] CLIA [id number] [address] [place] [address] [place] Immature granulocytes/100 WBC (Bld) 0.6 % Normal [facility] Comment on above: Order Comment: Speci men Type: BLOOD SPECIMEN Ordering Facility: [facility] Address: [address] [place] [address] Performed By: #### 5 8410-2 #### [facility] CLIA [id number] [address] [place] [address] [place] Lymphocytes (Bld) [#/Vol] 0.83 10*3/uL Low 1.00-4.00 [facility] Comment on above: Order Comment: Speci men Type: BLOOD SPECIMEN Ordering Facility: [facility] Address: [address] [place] [address] Performed By: #### 5 8410-2 #### [facility] CLIA [id number] [address] [place] [address] [place] Lymphocytes/100 WBC (Bld) 6.3 % Normal [facility] Comment on above: Order Comment: Speci men Type: BLOOD SPECIMEN Ordering Facility: [facility] Address: [address] [place] [address] Performed By: #### 5 8410-2 #### [facility] CLIA [id number] [address] [place] [address] [place] MCH (RBC) [Entitic mass] 32.0 pg Normal 26.0-34.0 [facility] Comment on above: Order Comment: Speci men Type: BLOOD SPECIMEN Ordering Facility: [facility] Address: [address] [place] [address] Performed By: #### 5 8410-2 #### [facility] CLIA [id number] [address] [place], [place] [address] [place] MCHC (RBC) [Mass/Vol] 34.3 g/dL Normal 30.5-36.0 [facility] Comment on above: Order Comment: Speci men Type: BLOOD SPECIMEN Ordering Facility: [facility] Address: [address] [place] [address] Performed By: #### 5 8410-2 #### [facility] CLIA [id number] [address] [place] [address] [place] MCV (RBC) [Entitic vol] 93.5 fL Normal 80.0-100.0 [facility] Comment on above: Order Comment: Speci men Type: BLOOD SPECIMEN Ordering Facility: [facility] Address: [address] [place] [address] Performed By: #### 5 8410-2 #### [facility] CLIA [id number] [address] [place] [address] [place] Monocytes (Bld) [#/Vol] 1.03 10*3/uL High <0.87 [facility] Comment on above: Order Comment: Speci men Type: BLOOD SPECIMEN Ordering Facility: [facility] Address: [address] [place] [address] Performed By: #### 5 8410-2 #### [facility] CLIA [id number] [address] [place] [address] [place] Monocytes/100 WBC (Bld) 7.8 % Normal [facility] Comment on above: Order Comment: Speci men Type: BLOOD SPECIMEN Ordering Facility: [facility] Address: [address] [place] [address] Performed By: #### 5 8410-2 #### [facility] CLIA [id number] [address] [place] [address] [place] Neutrophils (Bld) [#/Vol] 11.23 10*3/uL High 1.45-7.50 [facility] Comment on above: Order Comment: Speci men Type: BLOOD SPECIMEN Ordering Facility: [facility] Address: [address] [place] [address] Performed By: #### 5 8410-2 #### [facility] CLIA [id number] [address] [place] [address] [place] Neutrophils/100 WBC (Bld) 85.1 % Normal [facility] Comment on above: Order Comment: Speci men Type: BLOOD SPECIMEN Ordering Facility: [facility] Address: [address] [place] [address] Performed By: #### 5 8410-2 #### [facility] CLIA [id number] [address] [place] [address] [place] Nucleated RBC (Bld) [#/Vol] 10*3/uL Normal <0.01 [facility] Comment on above: Order Comment: Speci men Type: BLOOD SPECIMEN Ordering Facility: [facility] Address: [address] [place] [address] Performed By: #### 5 8410-2 #### [facility] CLIA [id number] [address] [place] [address] [place] Nucleated RBC/100 WBC (Bld) [Ratio] 0.0 /100 WBC Normal [facility] Comment on above: Order Comment: Speci men Type: BLOOD SPECIMEN Ordering Facility: [facility] Address: [address] [place] [address] Performed By: #### 5 8410-2 #### [facility] CLIA [id number] [address] [place] [address] [place] Platelet mean volume (Bld) [Entitic vol] 11.8 fL Normal 9.0-12.7 [facility] Comment on above: Order Comment: Speci men Type: BLOOD SPECIMEN Ordering Facility: [facility] Address: [address] [place] [address] Performed By: #### 5 8410-2 #### [facility] CLIA [id number] [address] [place] [address] [place] Platelets (Bld) [#/Vol] 133 10*3/uL Low 150-400 [facility] Comment on above: Order Comment: Speci men Type: BLOOD SPECIMEN Ordering Facility: [facility] Address: [address] [place] [address] Result Comment: Resu lts checked and verified.No clot detected. Performed By: #### 5 8410-2 #### [facility] CLIA [id number] [address] [place] [address] RBC (Bld) [#/Vol] 3.84 10*6/uL Low 4.20-6.00 [facility] Comment on above: Order Comment: Stacii men Type: BLOOD SPECIMEN Ordering Facility: [facility] Address: [address] [place] [address] Performed By: #### 5 8410-2 #### [facility] CLIA [id number] [address] [place] [address] WBC (Bld) [#/Vol] 13.20 10*3/uL High 3.70-11.00 [facility] Comment on above: Order Comment: Stacii hu Type: BLOOD SPECIMEN Ordering Facility: [facility] Address: [address] [place] [address] Performed By: #### 5 8410-2 #### [facility] CLIA [id number] [address] [place] [address] CNDSon 06-01-2023 CNDS HNO ID: [id number] Author: AARON MCKEON DO Service: Hospital Medicine [...] kidney disease) stage 3, GFR 30-59 ml/min ([facility]) OPERATIONS PERFORMED WHILE IN THE HOSPITAL: laparoscopic [...] you become constipated, you may use any brpq-nvw-aepqhkx treatment such as Milk of Magnesia, Sennakot, [...] medication (see prescription) You should use an nvpg-ode-tqkydmp stool softener (Docusate sodium) and/or a fiber [...] call for appointment?: Yes Jaun Leblanc MD [phone] [place] [address] [address] [place] [id number] PCP Requested Referral Additional Provider to Provider Information: Treatment Team: Attending Provider: Aaron Mckeon DO Attending: MR KASHMIR LUIS Transitions of Care Critical Issues: SPECIALIST FOLLOW-UP: Dr Leblanc LABS AND PROCEDURES PENDING AT DISCHARGE: No pending results. FOLLOW-UP APPOINTMENTS ALREADY SCHEDULED WITH A [facility] PROVIDER: Future Appointments Date Time Provider Department Center 11/21/2023 9:00 AM Giovanni Persaud MD INTWS [facility] YESSENIA ES (more content not included)... Normal [facility] CONSULT PROGon 06-01-2023 CONSULT PROG HNO ID: [id number] Author: JAUN LEBLANC MD Service: General Surgery [...] kg/m? O2 Therapy: Room Air IANDO: Date 05/31/23699 - 06/01/2365806/01/23699 - 06/02/23 0659 Shift [id number] 1726-8487 5172-0054 24 Hour Total 7167-0824 2733-3629 6407-7034 24 Hour Total INTAKE IV 2442 2442 [...] kidney disease) stage 3, GFR 30-59 ml/min ([facility]) 08/04/2016 Esophageal reflux 04/05/2005 Essential hypertension, benign 04/05/2005 83 year old male presents from [place] with acute acalculous cholecystitis. / laparoscopic cholecystectomy with gangrenous gallbladder -Diet as tolerated -Would send the patient home with scheduled Tylenol and ibuprofen and senna S for 5 days -LFTs continue to improve, within patient's baseline. -Discharge instructions already placed, patient can follow-up in 2 weeks in my office -Ok to discharge, will sign off, call with questions Please Note: This office note has been created using ElectraTherm, a speech recognition software program, and may contain errors including punctuation, grammar, spelling, gender, and inappropriate words or phrases that pertain to the system. SIGNATURE: Jaun Leblanc MD PATIENT NAME: Henrik Ma DATE: June 01, 2023 TIME: 11:19 AM Pager: [phone] Normal [facility] Comprehensive metabolic 2000 panelon 06-01-2023 Albumin [Mass/Vol] 2.1 g/dL Low 3.2-5.0 [facility] Comment on above: Order Comment: Speci hu Type: BLOOD SPECIMEN Ordering Facility: [facility] Address: [address] [place] [address] Performed By: #### 3 4528-0, 06539-9 #### [facility] CLIA [id number] [address] [place] [address] [place] [facility] ALP [Catalytic activity/Vol] 120 U/L High 45-117 [facility] Comment on above: Order Comment: Anai lui Type: BLOOD SPECIMEN Ordering Facility: [facility] Address: [address] [place] [address] Performed By: #### 3 4528-0, 69144-8 #### [facility] CLIA [id number] [address] [place] [address] [place] [facility] ALT [Catalytic activity/Vol] 53 U/L Normal 13-61 [facility] Comment on above: Order Comment: Anai lui Type: BLOOD SPECIMEN Ordering Facility: [facility] Address: [address] [place] [address] Result Comment: Resu lts may be falsely depressed after the administration of Sulfasalazine and/or Sulfapyridine. Performed By: #### 3 4528-0, 44533-6 #### [facility] CLIA [id number] [address] [place] [address] [place] Anion gap [Moles/Vol] 7 mmol/L Normal 5-16 [facility] Comment on above: Order Comment: Anai lui Type: BLOOD SPECIMEN Ordering Facility: [facility] Address: [address] [place] [address] Performed By: #### 3 4528-0, 95584-7 #### [facility] CLIA [id number] [address] [place] [address] [place] AST [Catalytic activity/Vol] Normal [facility] Comment on above: Order Comment: Anai lui Type: BLOOD SPECIMEN Ordering Facility: [facility] Address: [address] [place] [address] Result Comment: Unab le to assay due to interference from hemolysis. Suggest reorder as clinically indicated. &XA&notified gayle, no k and ast Results may be falsely depressed after the administration of Sulfasalazine and/or Sulfapyridine. Performed By: #### 3 4528-0, 16230-2 #### [facility] CLIA [id number] [address] [place] [address] [place] Bilirubin [Mass/Vol] 1.7 mg/dL High 0.2-1.0 [facility] Comment on above: Order Comment: Anai lui Type: BLOOD SPECIMEN Ordering Facility: [facility] Address: [address] [place] [address] Performed By: #### 3 4528-0, 34904-1 #### [facility] CLIA [id number] [address] [place] [address] [place] Calcium [Mass/Vol] 8.0 mg/dL Low 8.5-10.5 [facility] Comment on above: Order Comment: Anai lui Type: BLOOD SPECIMEN Ordering Facility: [facility] Address: [address] [place] [address] Performed By: #### 3 4528-0, 45773-4 #### [facility] CLIA [id number] [address] [place], [place] [address] [place] Chloride [Moles/Vol] 112 mmol/L High 98-107 [facility] Comment on above: Order Comment: Speci men Type: BLOOD SPECIMEN Ordering Facility: [facility] Address: [address] [place] [address] Performed By: #### 3 4528-0, 27070-1 #### [facility] CLIA [id number] [address] [place], [place] [address] [place] CO2 [Moles/Vol] 24 mmol/L Normal 21-32 [facility] Comment on above: Order Comment: Speci men Type: BLOOD SPECIMEN Ordering Facility: [facility] Address: [address] [place] [address] Performed By: #### 3 4528-0, 31470-6 #### [facility] CLIA [id number] [address] [place] [address] [place] Creatinine [Mass/Vol] 1.30 mg/dL Normal 0.50-1.40 [facility] Comment on above: Order Comment: Speci men Type: BLOOD SPECIMEN Ordering Facility: [facility] Address: [address] [place] [address] Result Comment: Yary ents receiving either N-Acetylcysteine (NAC) or Metamizole prior to venipuncture, may have falsely depressed results. Performed By: #### 3 4528-0, 52821-3 #### [facility] CLIA [id number] [address] [place] [address] [place] Creatinine and Glomerular filtration rate.predicted panel (S/P/Bld) 54 mL/min/1.73m??? Low >=60 [facility] Comment on above: Order Comment: Speci men Type: BLOOD SPECIMEN Ordering Facility: [facility] Address: [address] [place] [address] Result Comment: Christina mated Glomerular Filtration Rate [...] actual GFR. Performed By: #### 3 4528-0, 03691-2 #### [facility] CLIA [id number] [address] [place] [address] [place] Glucose [Mass/Vol] 122 mg/dL High 70-100 [facility] Comment on above: Order Comment: Anai lui Type: BLOOD SPECIMEN Ordering Facility: [facility] Address: [address] [place] [address] Result Comment: The [place] [employer] (ADA) provides guidance for cutoff [...] Standards of Medical Care in Diabetes 2016, [place] [employer]. Diabetes Care. 2016.39(Suppl 1). Results may be falsely elevated after the administration of Sulfapyridine. Results may be falsely depressed after the administration of Sulfasalazine. Performed By: #### 3 4528-0, 90551-0 #### [facility] CLIA [id number] [address] [place] [address] [place] Potassium [Moles/Vol] Normal [facility] Comment on above: Order Comment: Anai lui Type: BLOOD SPECIMEN Ordering Facility: [facility] Address: [address] [place] [address] Result Comment: Unab le to assay due to interference from hemolysis. Suggest reorder as clinically indicated. Performed By: #### 3 4528-0, 79392-9 #### [facility] CLIA [id number] [address] [place] [address] [place] Protein [Mass/Vol] 5.0 g/dL Low 6.0-8.5 [facility] Comment on above: Order Comment: Speci men Type: BLOOD SPECIMEN Ordering Facility: [facility] Address: [address] [place] [address] Performed By: #### 3 4528-0, 87757-9 #### [facility] CLIA [id number] [address] [place] [address] [place] Sodium [Moles/Vol] 143 mmol/L Normal 136-145 [facility] Comment on above: Order Comment: Speci men Type: BLOOD SPECIMEN Ordering Facility: [facility] Address: [address] [place] [address] Performed By: #### 3 4528-0, 28249-5 #### [facility] CLIA [id number] [address] [place] [address] [place] Urea nitrogen [Mass/Vol] 30 mg/dL High 7-26 [facility] Comment on above: Order Comment: Speci men Type: BLOOD SPECIMEN Ordering Facility: [facility] Address: [address] [place] [address] Performed By: #### 3 4528-0, 44167-5 #### [facility] CLIA [id number] [address] [place] [address] [place] POTASSIUM BLDon 06-01-2023 Potassium [Moles/Vol] 4.5 mmol/L Normal 3.5-5.1 [facility] Comment on above: Order Comment: Speci men Type: BLOOD SPECIMEN Ordering Facility: [facility] Address: [address] [place] [address] Performed By: #### 3 4528-0, 89824-4 #### [facility] CLIA [id number] [address] [place], [place] [address] [place] Basic metabolic 2000 panelon 05-31-2023 Anion gap [Moles/Vol] 7 mmol/L Normal 5-16 [facility] Comment on above: Order Comment: Speci men Type: BLOOD SPECIMEN Ordering Facility: [facility] Address: [address] [place] [address] Performed By: #### 5 8410-2 #### [facility] CLIA [id number] [address] [place], [place] [address] [place] Calcium [Mass/Vol] 8.3 mg/dL Low 8.5-10.5 [facility] Comment on above: Order Comment: Speci men Type: BLOOD SPECIMEN Ordering Facility: [facility] Address: [address] [place] [address] Performed By: #### 5 8410-2 #### [facility] CLIA [id number] [address] [place] [address] [place] Chloride [Moles/Vol] 111 mmol/L High 98-107 [facility] Comment on above: Order Comment: Speci men Type: BLOOD SPECIMEN Ordering Facility: [facility] Address: [address] [place] [address] Performed By: #### 5 8410-2 #### [facility] CLIA [id number] [address] [place], [place] [address] [place] CO2 [Moles/Vol] 24 mmol/L Normal 21-32 [facility] Comment on above: Order Comment: Speci men Type: BLOOD SPECIMEN Ordering Facility: [facility] Address: [address] [place] [address] Performed By: #### 5 8410-2 #### [facility] CLIA [id number] [address] [place], [place] [address] [place] Creatinine [Mass/Vol] 1.32 mg/dL Normal 0.50-1.40 [facility] Comment on above: Order Comment: Speci men Type: BLOOD SPECIMEN Ordering Facility: [facility] Address: [address] [place] [address] Result Comment: Yary ents receiving either N-Acetylcysteine (NAC) or Metamizole prior to venipuncture, may have falsely depressed results. Performed By: #### 5 8410-2 #### [facility] CLIA [id number] [address] [place] [address] [place] Creatinine and Glomerular filtration rate.predicted panel (S/P/Bld) 53 mL/min/1.73m??? Low >=60 [facility] Comment on above: Order Comment: Anai lui Type: BLOOD SPECIMEN Ordering Facility: [facility] Address: [address] [place] [address] Result Comment: Christina mated Glomerular Filtration Rate [...] GFR. Performed By: #### 5 8410-2 #### [facility] CLIA [id number] [address] [place] [address] [place] Glucose [Mass/Vol] 181 mg/dL High 70-100 [facility] Comment on above: Order Comment: Anai lui Type: BLOOD SPECIMEN Ordering Facility: [facility] Address: [address] [place] [address] Result Comment: The [place] [employer] (ADA) provides guidance for cutoff [...] Standards of Medical Care in Diabetes 2016, [place] [employer]. Diabetes Care. 2016.39(Suppl 1). Results may be falsely elevated after the administration of Sulfapyridine. Results may be falsely depressed after the administration of Sulfasalazine. Performed By: #### 5 8410-2 #### [facility] CLIA [id number] [address] [place] [address] [place] Potassium [Moles/Vol] 4.3 mmol/L Normal 3.5-5.1 [facility] Comment on above: Order Comment: Speci men Type: BLOOD SPECIMEN Ordering Facility: [facility] Address: [address] [place] [address] Performed By: #### 5 8410-2 #### [facility] CLIA [id number] [address] [place] [address] [place] Sodium [Moles/Vol] 142 mmol/L Normal 136-145 [facility] Comment on above: Order Comment: Speci men Type: BLOOD SPECIMEN Ordering Facility: [facility] Address: [address] [place] [address] Performed By: #### 5 8410-2 #### [facility] CLIA [id number] [address] [place] [address] [place] Urea nitrogen [Mass/Vol] 28 mg/dL High 7-26 [facility] Comment on above: Order Comment: Speci men Type: BLOOD SPECIMEN Ordering Facility: [facility] Address: [address] [place] [address] Performed By: #### 5 8410-2 #### [facility] CLIA [id number] [address] [place] [address] [place] CBC W Auto Differential pane l (Bld)on 05-31-2023 Basophils (Bld) [#/Vol] 0.03 10*3/uL Normal <0.11 [facility] Comment on above: Order Comment: Speci men Type: BLOOD SPECIMEN Ordering Facility: [facility] Address: [address] [place] [address] Performed By: #### 5 8410-2 #### [facility] CLIA [id number] [address] [place] [address] [place] Basophils/100 WBC (Bld) 0.2 % Normal [facility] Comment on above: Order Comment: Speci men Type: BLOOD SPECIMEN Ordering Facility: [facility] Address: [address] [place] [address] Performed By: #### 5 8410-2 #### [facility] CLIA [id number] [address] [place] [address] [facility] [place] Differential cell count method Nom (Bld) Auto Normal [facility] Comment on above: Order Comment: Speci men Type: BLOOD SPECIMEN Ordering Facility: [facility] Address: [address] [place] [address] Performed By: #### 5 8410-2 #### [facility] CLIA [id number] [address] [place] [address] [place] Eosinophils (Bld) [#/Vol] 10*3/uL Normal <0.46 [facility] Comment on above: Order Comment: Speci men Type: BLOOD SPECIMEN Ordering Facility: [facility] Address: [address] [place] [address] Performed By: #### 5 8410-2 #### [facility] CLIA [id number] [address] [place] [address] [place] Eosinophils/100 WBC (Bld) 0.0 % Normal [facility] Comment on above: Order Comment: Speci men Type: BLOOD SPECIMEN Ordering Facility: [facility] Address: [address] [place] [address] Performed By: #### 5 8410-2 #### [facility] CLIA [id number] [address] [place] [address] [place] Erythrocyte distribution width (RBC) [Ratio] 13.5 % Normal 11.5-15.0 [facility] Comment on above: Order Comment: Speci men Type: BLOOD SPECIMEN Ordering Facility: [facility] Address: [address] [place] [address] Performed By: #### 5 8410-2 #### [facility] CLIA [id number] [address] [place] [address] [facility] [place] Hematocrit (Bld) [Volume fraction] 36.4 % Low 39.0-51.0 [facility] Comment on above: Order Comment: Speci men Type: BLOOD SPECIMEN Ordering Facility: [facility] Address: [address] [place] [address] Performed By: #### 5 8410-2 #### [facility] CLIA [id number] [address] [place] [address] [place] Hemoglobin (Bld) [Mass/Vol] 12.4 g/dL Low 13.0-17.0 [facility] Comment on above: Order Comment: Speci men Type: BLOOD SPECIMEN Ordering Facility: [facility] Address: [address] [place] [address] Performed By: #### 5 8410-2 #### [facility] CLIA [id number] [address] [place] [address] [place] Immature granulocytes (Bld) [#/Vol] 0.08 10*3/uL Normal <0.10 [facility] Comment on above: Order Comment: Speci men Type: BLOOD SPECIMEN Ordering Facility: [facility] Address: [address] [place] [address] Performed By: #### 5 8410-2 #### [facility] CLIA [id number] [address] [place] [address] [place] Immature granulocytes/100 WBC (Bld) 0.6 % Normal [facility] Comment on above: Order Comment: Speci men Type: BLOOD SPECIMEN Ordering Facility: [facility] Address: [address] [place] [address] Performed By: #### 5 8410-2 #### [facility] CLIA [id number] [address] [place] [address] [place] Lymphocytes (Bld) [#/Vol] 0.43 10*3/uL Low 1.00-4.00 [facility] Comment on above: Order Comment: Speci men Type: BLOOD SPECIMEN Ordering Facility: [facility] Address: [address] [place] [address] Performed By: #### 5 8410-2 #### [facility] CLIA [id number] [address] [place] [address] [place] Lymphocytes/100 WBC (Bld) 3.3 % Normal [facility] Comment on above: Order Comment: Speci men Type: BLOOD SPECIMEN Ordering Facility: [facility] Address: [address] [place] [address] Performed By: #### 5 8410-2 #### [facility] CLIA [id number] [address] [place] [address] [place] MCH (RBC) [Entitic mass] 31.9 pg Normal 26.0-34.0 [facility] Comment on above: Order Comment: Speci men Type: BLOOD SPECIMEN Ordering Facility: [facility] Address: [address] [place] [address] Performed By: #### 5 8410-2 #### [facility] CLIA [id number] [address] [place] [address] [place] MCHC (RBC) [Mass/Vol] 34.1 g/dL Normal 30.5-36.0 [facility] Comment on above: Order Comment: Speci men Type: BLOOD SPECIMEN Ordering Facility: [facility] Address: [address] [place] [address] Performed By: #### 5 8410-2 #### [facility] CLIA [id number] [address] [place] [address] [place] MCV (RBC) [Entitic vol] 93.6 fL Normal 80.0-100.0 [facility] Comment on above: Order Comment: Speci men Type: BLOOD SPECIMEN Ordering Facility: [facility] Address: [address] [place] [address] Performed By: #### 5 8410-2 #### [facility] CLIA [id number] [address] [place] [address] [place] Monocytes (Bld) [#/Vol] 0.84 10*3/uL Normal <0.87 [facility] Comment on above: Order Comment: Speci men Type: BLOOD SPECIMEN Ordering Facility: [facility] Address: [address] [place] [address] Performed By: #### 5 8410-2 #### [facility] CLIA [id number] [address] [place] [address] [place] Monocytes/100 WBC (Bld) 6.5 % Normal [facility] Comment on above: Order Comment: Speci men Type: BLOOD SPECIMEN Ordering Facility: [facility] Address: [address] [place] [address] Performed By: #### 5 8410-2 #### [facility] CLIA [id number] [address] [place] [address] [place] Neutrophils (Bld) [#/Vol] 11.61 10*3/uL High 1.45-7.50 [facility] Comment on above: Order Comment: Speci men Type: BLOOD SPECIMEN Ordering Facility: [facility] Address: [address] [place] [address] Performed By: #### 5 8410-2 #### [facility] CLIA [id number] [address] [place] [address] [place] Neutrophils/100 WBC (Bld) 89.4 % Normal [facility] Comment on above: Order Comment: Speci men Type: BLOOD SPECIMEN Ordering Facility: [facility] Address: [address] [place] [address] Performed By: #### 5 8410-2 #### [facility] CLIA [id number] [address] [place] [address] [place] Nucleated RBC (Bld) [#/Vol] 10*3/uL Normal <0.01 [facility] Comment on above: Order Comment: Speci men Type: BLOOD SPECIMEN Ordering Facility: [facility] Address: [address] [place] [address] Performed By: #### 5 8410-2 #### [facility] CLIA [id number] [address] [place] [address] [place] Nucleated RBC/100 WBC (Bld) [Ratio] 0.0 /100 WBC Normal [facility] Comment on above: Order Comment: Speci men Type: BLOOD SPECIMEN Ordering Facility: [facility] Address: [address] [place] [address] Performed By: #### 5 8410-2 #### [facility] CLIA [id number] [address] [place], [place] [address] [place] Platelet mean volume (Bld) [Entitic vol] 11.3 fL Normal 9.0-12.7 [facility] Comment on above: Order Comment: Speci men Type: BLOOD SPECIMEN Ordering Facility: [facility] Address: [address] [id number] Performed By: #### 5 8410-2 #### [facility] CLIA [id number] [address] [place] [address] [place] Platelets (Bld) [#/Vol] 132 10*3/uL Low 150-400 [facility] Comment on above: Order Comment: Speci men Type: BLOOD SPECIMEN Ordering Facility: [facility] Address: [address] [place] [address] Performed By: #### 5 8410-2 #### [facility] CLIA [id number] [address] [place] [address] [place] RBC (Bld) [#/Vol] 3.89 10*6/uL Low 4.20-6.00 [facility] Comment on above: Order Comment: Speci men Type: BLOOD SPECIMEN Ordering Facility: [facility] Address: [address] [address] Performed By: #### 5 8410-2 #### [facility] CLIA [id number] [address] [place] [address] [place] WBC (Bld) [#/Vol] 12.99 10*3/uL High 3.70-11.00 [facility] Comment on above: Order Comment: Speci men Type: BLOOD SPECIMEN Ordering Facility: [facility] Address: Formerly [facility] [place] [address] Performed By: #### 5 8410-2 #### [facility] CLIA [id number] [address] [place] [address] [facility] [place] CONSULT PROGon 05-31-2023 CONSULT PROG HNO ID: [id number] Author: REMY CRAWFORD RPh Service: Pharmacy Author [...] Crawford RPh May 31, 2023 7:10 PM [facility] CONSULT PROG HNO ID: [id number] Author: JAUN LEBLANC MD Service: General Surgery [...] 0659 05/31/23 07 - 06/01/23 0659 Shift [id number] 9002-0661 2481-0085 24 Hour Total 8312-0377 6425-9821 7916-1085 24 Hour Total INTAKE PO 100 100 [...] kidney disease) stage 3, GFR 30-59 ml/min ([facility]) 08/04/2016 Esophageal reflux 04/05/2005 Essential hypertension, benign 04/05/2005 83 year old male who presents from [place] with acute acalculous cholecystitis. 05/29 Lap cholecystectomy Impression / Plan Diet: DIET GASTRO INTESTINAL Pain control Tylenol, oxycodone, morphine Antibiotics azithromycin, Zosyn Will need antibiotics for at least 24 hours postsurgery Hepatic panel within patient's baseline Activity up as tolerated Follow-up in our office with Dr. Gilliam in 2 weeks Please Note: This office note has been created using [employer], a speech recognition software program, and may contain errors including punctuation, grammar, spelling, gender, and inappropriate words or phrases that pertain to the system. SIGNATURE: Rosalva Bruner APRN.CINDER [employer] [place]ON PATIENT NAME: Henrik Ma DATE: May 31, 2023 TIME: 12:33 PM Pager: Please message directly 7am-5pm on week days. 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 Attending Note I have personally performed a face to face assessment of the patient and have reviewed the TIFFANIE note and agree with the documentation with my additions below. I performed a substantive portion of the visit including, but not limited to, the h (more content not included)... Normal [facility] Hepatic function 2000 panelo n 05-31-2023 Albumin [Mass/Vol] 2.3 g/dL Low 3.2-5.0 [facility] Comment on above: Order Comment: Anai lui Type: BLOOD SPECIMEN Ordering Facility: [facility] Address: [address] [place] [address] Performed By: #### 5 8410-2 #### [facility] CLIA [id number] [address] [place] [address] [place] ALP [Catalytic activity/Vol] 122 U/L High 45-117 [facility] Comment on above: Order Comment: Anai lui Type: BLOOD SPECIMEN Ordering Facility: [facility] Address: [address] [place] [address] Performed By: #### 5 8410-2 #### [facility] CLIA [id number] [address] [place], [place] [address] [place] ALT [Catalytic activity/Vol] 53 U/L Normal 13-61 [facility] Comment on above: Order Comment: Speci men Type: BLOOD SPECIMEN Ordering Facility: [facility] Address: [address] [place] [address] Result Comment: Resu lts may be falsely depressed after the administration of Sulfasalazine and/or Sulfapyridine. Performed By: #### 5 8410-2 #### [facility] CLIA [id number] [address] [place] [address] [place] AST [Catalytic activity/Vol] 75 U/L High 8-34 [facility] Comment on above: Order Comment: Speci men Type: BLOOD SPECIMEN Ordering Facility: [facility] Address: [address] [place] [address] Result Comment: Resu lts may be falsely depressed after the administration of Sulfasalazine and/or Sulfapyridine. Performed By: #### 5 8410-2 #### [facility] CLIA [id number] [address] [place] [address] [place] Bilirubin [Mass/Vol] 2.0 mg/dL High 0.2-1.0 [facility] Comment on above: Order Comment: Speci men Type: BLOOD SPECIMEN Ordering Facility: [facility] Address: [address] [place] [address] Performed By: #### 5 8410-2 #### [facility] CLIA [id number] [address] [place] [address] [place] Bilirubin.conjugated [Mass/Vol] 0.8 mg/dL High 0.0-0.4 [facility] Comment on above: Order Comment: Speci men Type: BLOOD SPECIMEN Ordering Facility: [facility] Address: [address] [place] [address] Performed By: #### 5 8410-2 #### [facility] CLIA [id number] [address] [place] [address] [place] Protein [Mass/Vol] 5.5 g/dL Low 6.0-8.5 [facility] Comment on above: Order Comment: Speci men Type: BLOOD SPECIMEN Ordering Facility: [facility] Address: [address] [place] [address] Performed By: #### 5 8410-2 #### [facility] CLIA [id number] [address] [id number] [facility] [place] ANES POSTPROC EVALon 024 ANES POSTPROC EVAL HNO ID: [id number] Author: JASPREET HUGHES MD Service: Anesthesiology Author Type: Anesthesiologist Type: Anesthesia Postprocedure Evaluation Filed: 05/30/2023 21:31 Note Text: POST ANESTHESIA EVALUATION NOTE : 1940 Procedure Summary Date: 05/30/23 Room / Location: OR [facility] OR Anesthesia Start: 1831 Anesthesia Stop: 2058 [...] May 30, 2023 TIME: 9:31 PM CSN: [id number] [facility] ANES PRE-OPon 05-30-2023 ANES PRE-OP HNO ID: [id number] Author: JASPREET HUGHES MD Service: Anesthesiology Author Type: Anesthesiologist Type: Anesthesia Preprocedure Evaluation Filed: 05/30/2023 18:27 Note Text: ANESTHESIOLOGY DAY OF SURGERY NOTE : 1940 Procedure Information Date/Time: 05/30/231729 Procedure: LAPAROSCOPIC CHOLECYSTECTOMY (Abdomen) Location: MR OR / OR Surgeons: Jaun Leblanc MD Estimated [...] and consent discussed: yes. Patient / Responsible Green Party agrees to proceed: yes Patient / Surrogate [...] mouth on (more content not included)... Normal [facility] Bilirub Conj SerPl-mCncon Bilirubin.conjugated [Mass/Vol] 0.9 mg/dL High 0.0-0.4 [facility] Comment on above: Order Comment: Speci men Type: BLOOD SPECIMEN Ordering Facility: [facility] Address: [address] [place] [address] Performed By: #### 1 5152-2, 46182-3 #### [facility] CLIA [id number] [address] [place] [address] [place] CBC panel Auto (Bld)on 05-29 Erythrocyte distribution width (RBC) [Ratio] 13.2 % Normal 11.5-15.0 [facility] Comment on above: Order Comment: Speci men Type: BLOOD SPECIMEN Ordering Facility: [facility] Address: [address] [place] [address] Performed By: #### 5 8410-2 #### [facility] CLIA [id number] [address] [place] [address] [place] Hematocrit (Bld) [Volume fraction] 37.1 % Low 39.0-51.0 [facility] Comment on above: Order Comment: Speci men Type: BLOOD SPECIMEN Ordering Facility: [facility] Address: [address] [place] [address] Performed By: #### 5 8410-2 #### [facility] CLIA [id number] [address] [place] [address] [place] Hemoglobin (Bld) [Mass/Vol] 12.8 g/dL Low 13.0-17.0 [facility] Comment on above: Order Comment: Speci men Type: BLOOD SPECIMEN Ordering Facility: [facility] Address: [address] [place] [address] Performed By: #### 5 8410-2 #### [facility] CLIA [id number] [address] [place] [address] [place] MCH (RBC) [Entitic mass] 32.2 pg Normal 26.0-34.0 [facility] Comment on above: Order Comment: Speci men Type: BLOOD SPECIMEN Ordering Facility: [facility] Address: [address] [place] [address] Performed By: #### 5 8410-2 #### [facility] CLIA [id number] [address] [place] [address] [place] MCHC (RBC) [Mass/Vol] 34.5 g/dL Normal 30.5-36.0 [facility] Comment on above: Order Comment: Speci men Type: BLOOD SPECIMEN Ordering Facility: [facility] Address: [address] [place] [address] Performed By: #### 5 8410-2 #### [facility] CLIA [id number] [address] [place] [address] [place] MCV (RBC) [Entitic vol] 93.2 fL Normal 80.0-100.0 [facility] Comment on above: Order Comment: Speci men Type: BLOOD SPECIMEN Ordering Facility: [facility] Address: [address] [id number] Performed By: #### 5 8410-2 #### [facility] CLIA [id number] [address] [place] [address] [place] Nucleated RBC (Bld) [#/Vol] 10*3/uL Normal <0.01 [facility] Comment on above: Order Comment: Speci men Type: BLOOD SPECIMEN Ordering Facility: [facility] Address: [address] [place] [address] Performed By: #### 5 8410-2 #### [facility] CLIA [id number] [address] [place] [address] [place] Platelet mean volume (Bld) [Entitic vol] 11.5 fL Normal 9.0-12.7 [facility] Comment on above: Order Comment: Speci men Type: BLOOD SPECIMEN Ordering Facility: [facility] Address: [address] [place] [address] Performed By: #### 5 8410-2 #### [facility] CLIA [id number] [address] [place] [address] [place] Platelets (Bld) [#/Vol] 130 10*3/uL Low 150-400 [facility] Comment on above: Order Comment: Speci men Type: BLOOD SPECIMEN Ordering Facility: [facility] Address: [address] [place] [address] Performed By: #### 5 8410-2 #### [facility] CLIA [id number] [address] [place] [address] [place] RBC (Bld) [#/Vol] 3.98 10*6/uL Low 4.20-6.00 [facility] Comment on above: Order Comment: Speci men Type: BLOOD SPECIMEN Ordering Facility: [facility] Address: [address] [place] [address] Performed By: #### 5 8410-2 #### [facility] CLIA [id number] [address] [place] [address] [place] WBC (Bld) [#/Vol] 14.34 10*3/uL High 3.70-11.00 [facility] Comment on above: Order Comment: Speci men Type: BLOOD SPECIMEN Ordering Facility: [facility] Address: [address] [place] [address] Performed By: #### 5 8410-2 #### [facility] CLIA [id number] [id number] [facility] CONSULTon 05-30-2023 CONSULT HNO ID: [id number] Author: JAUN LEBLANC MD Service: General Surgery Author Type: Physician Type: Consults Filed: 05/30/2023 14:29 Note Text: Emergency General Surgery - HANDP Examination / Consultation Note SERVICE DATE: 05/30/2023 SERVICE TIME: 09:26 REASON FOR CONSULT: Acute calculus cholecystitis transfer in from [facility] REQUESTING PHYSICIAN: Stephane Rosales MD PRIMARY CARE PHYSICIAN: Giovanni Persaud MD Subjective CHIEF COMPLAINT: Acute cholecystitis HPI: This is a 83 year old male who presents with GERD, hypertension, hyperlipidemia, trigeminal neuralgia, CAD, CKD, BPH. 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 Hi, DPM Trigeminal neuralgia Ulcerative (chronic) proctitis ([facility]) 08/2003 Unspecified cardiovascular disease mild CAD PAST [...] before m (more content not included)... Normal [facility] Comprehensive metabolic 2000 panelon 05-30-2023 Albumin [Mass/Vol] 2.5 g/dL Low 3.2-5.0 [facility] Comment on above: Order Comment: Speci men Type: BLOOD SPECIMEN Ordering Facility: [facility] Address: [address] [place] [address] Performed By: #### 1 5152-2, 97438-1 #### [facility] CLIA [id number] [address] [place] [address] [place] ALP [Catalytic activity/Vol] 99 U/L Normal 45-117 [facility] Comment on above: Order Comment: Speci men Type: BLOOD SPECIMEN Ordering Facility: [facility] Address: [address] [place] [address] Performed By: #### 1 5152-2, 12798-3 #### [facility] CLIA [id number] [address] [place], [place] [id number] [place] ALT [Catalytic activity/Vol] 22 U/L Normal 13-61 [facility] Comment on above: Order Comment: Speci hu Type: BLOOD SPECIMEN Ordering Facility: [facility] Address: [address] [place] [address] Result Comment: Resu lts may be falsely depressed after the administration of Sulfasalazine and/or Sulfapyridine. Performed By: #### 1 5152-2, 64327-6 #### [facility] CLIA [id number] [address] [place] [address] [place] Anion gap [Moles/Vol] 6 mmol/L Normal 5-16 [facility] Comment on above: Order Comment: Anai lui Type: BLOOD SPECIMEN Ordering Facility: [facility] Address: [address] [place] [address] Performed By: #### 1 5152-2, 25095-6 #### [facility] CLIA [id number] [address] [place] [address] STATES OF [facility] AST [Catalytic activity/Vol] 33 U/L Normal 8-34 [facility] Comment on above: Order Comment: Speci hu Type: BLOOD SPECIMEN Ordering Facility: [facility] Address: [address] [place] [address] Result Comment: Resu lts may be falsely depressed after the administration of Sulfasalazine and/or Sulfapyridine. Performed By: #### 1 5152-2, 46395-8 #### [facility] CLIA [id number] [address] [place] [address] [place] Bilirubin [Mass/Vol] 2.2 mg/dL High 0.2-1.0 [facility] Comment on above: Order Comment: Speci hu Type: BLOOD SPECIMEN Ordering Facility: [facility] Address: [address] [place] [address] Performed By: #### 1 5152-2, 30526-4 #### [facility] CLIA [id number] [address] [place] [address] [place] Calcium [Mass/Vol] 8.8 mg/dL Normal 8.5-10.5 [facility] Comment on above: Order Comment: Speci men Type: BLOOD SPECIMEN Ordering Facility: [facility] Address: [address] [place] [address] Performed By: #### 1 5152-2, 81373-8 #### [facility] CLIA [id number] [address] [place] [address] [place] Chloride [Moles/Vol] 108 mmol/L High 98-107 [facility] Comment on above: Order Comment: Speci men Type: BLOOD SPECIMEN Ordering Facility: [facility] Address: [address] [place] [address] Performed By: #### 1 5152-2, 67139-7 #### [facility] CLIA [id number] [address] [place] [address] [place] CO2 [Moles/Vol] 28 mmol/L Normal 21-32 [facility] Comment on above: Order Comment: Speci men Type: BLOOD SPECIMEN Ordering Facility: [facility] Address: [address] [place] [address] Performed By: #### 1 5152-2, 24191-2 #### [facility] CLIA [id number] [address] [place] [address] [place] Creatinine [Mass/Vol] 1.43 mg/dL High 0.50-1.40 [facility] Comment on above: Order Comment: Speci men Type: BLOOD SPECIMEN Ordering Facility: [facility] Address: [address] [place] [address] Result Comment: Yary ents receiving either N-Acetylcysteine (NAC) or Metamizole prior to venipuncture, may have falsely depressed results. Performed By: #### 1 5152-2, 77390-6 #### [facility] CLIA [id number] [address] [place] [address] [place] Creatinine and Glomerular filtration rate.predicted panel (S/P/Bld) 48 mL/min/1.73m??? Low >=60 [facility] Comment on above: Order Comment: Anai lui Type: BLOOD SPECIMEN Ordering Facility: [facility] Address: [address] [place] [address] Result Comment: Christina mated Glomerular Filtration Rate [...] actual GFR. Performed By: #### 1 5152-2, 06278-9 #### [facility] CLIA [id number] [address] [place] [address] [place] Glucose [Mass/Vol] 112 mg/dL High 70-100 [facility] Comment on above: Order Comment: Anai lui Type: BLOOD SPECIMEN Ordering Facility: [facility] Address: [address] [place] [address] Result Comment: The [place] [employer] (ADA) provides guidance for cutoff [...] Standards of Medical Care in Diabetes 2016, [place] [employer]. Diabetes Care. 2016.39(Suppl 1). Results may be falsely elevated after the administration of Sulfapyridine. Results may be falsely depressed after the administration of Sulfasalazine. Performed By: #### 1 5152-2, 30891-4 #### [facility] CLIA [id number] [address] [place], [place] [address] [place] Potassium [Moles/Vol] 4.4 mmol/L Normal 3.5-5.1 [facility] Comment on above: Order Comment: Speci men Type: BLOOD SPECIMEN Ordering Facility: [facility] Address: [address] [place] [address] Performed By: #### 1 5152-2, 95333-4 #### [facility] CLIA [id number] [address] [place] [address] [place] Protein [Mass/Vol] 5.4 g/dL Low 6.0-8.5 [facility] Comment on above: Order Comment: Speci men Type: BLOOD SPECIMEN Ordering Facility: [facility] Address: [address] [place] [address] Performed By: #### 1 5152-2, 96594-5 #### [facility] CLIA [id number] [address] [place] [address] STATES OF [facility] Sodium [Moles/Vol] 142 mmol/L Normal 136-145 [facility] Comment on above: Order Comment: Speci men Type: BLOOD SPECIMEN Ordering Facility: [facility] Address: [address] [place] [address] Performed By: #### 1 5152-2, 18199-3 #### [facility] CLIA [id number] [address] [place] [address] [place] Urea nitrogen [Mass/Vol] 28 mg/dL High 7-26 [facility] Comment on above: Order Comment: Speci men Type: BLOOD SPECIMEN Ordering Facility: [facility] Address: [address] [place] [address] Performed By: #### 1 5152-2, 66751-9 #### [facility] CLIA [id number] [address] [place] [address] [place] HISTORY PHYSICALon HISTORY PHYSICAL HNO ID: [id number] Author: AMARILYS GONZÁLES MD Service: Hospital Medicine [...] CAD, CAD, trigeminal neuralgia who presents to [place] [facility] with right upper quad abdominal pain [...] kidney disease) stage 3, GFR 30-59 ml/min ([facility]) 08/04/2016 Esophageal reflux 04/05/2005 Essential hypertension, benign 04/05/2005 Hemangioma of skin and subcutaneous tissue Hydronephrosis 06/30/2022 Mild left Hydronephrosis of left kidney 07/11/2022 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 Hi, DPM Trigeminal neuralgia Ulcerative (chronic) proctitis ([facility]) 08/2003 Unspecified cardiovascular disease mild CAD PAST [...] moist. Pharynx: Oropharynx (more content not included)... [facility] HEPATOBILIARY WO RXon MS HEPATOBILIARY WO RX * * *Final Report * * * DATE OF EXAM: May 30 2023 4:05PM N 0022 - MS HEPATOBILIARY WO RX / PROCEDURE REASON: Cholelithiasis [...] ordering provider on 05/30/2023 4:07 PM via Risk I/O staff message or phone message by Imaging Services Navigator. Inspector Hot Forgings: [place] Transcribe Date/Time: May 30 2023 4:06P Dictated by : YONG PAUL MD This examination was interpreted and the report reviewed and electronically signed by: YONG PAUL MD on May 30 2023 4:08PM EST [id number] [facility] OPERATIVE NOon 05-30-2023 OPERATIVE NO HNO ID: [id number] Author: JAUN LEBLANC MD Service: General Surgery Author Type: Physician Type: Operative Report Filed: 05/30/2023 20:33 Note Text: OPERATIVE REPORT LOG ID: [id number] SURGERY/PROCEDURE DATE: 05/30/2023 INCISION/PROCEDURE START TIME: 7:00 PM INCISION CLOSE/PROCEDURE END TIME: 8:15 PM SURGEON(S)/PROCEDURALI ST(S) AND METAL STAMPER(S): Surgeon(s) and Role: * Jaun Leblanc MD - Primary Mental Health Tech: Enrrique Eaton SA; Geena Ramirez SA [...] fascia at the umbilical trocar site with [id number] 0 Vicryl suture and closed the remainder [...] 2023 TIME: 8:29 PM PAGER/CONTACT #: Normal [facility] PT panel Coag (PPP)on 2023 INR Coag (PPP) [Relative time] 1.0 {INR} Normal 0.9-1.3 [facility] Comment on above: Order Comment: Anai lui Type: BLOOD SPECIMEN Ordering Facility: [facility] Address: [address] [place] [address] Result Comment: Radha min K Antagonist (VKA) Therapeutic Range: INR 2 to 3 (Target INR of 2.5) Note: For patients treated with VKA drugs, such as warfarin, the [place] [employer] 2012 Guideline recommends [...] 2.5 to 3.5 (target INR of 3). Davina GH, et al. Chest 2012, 141:7S-47S Theresa RA et al. [facility] 2017, 70: 252-289 Performed By: #### 3 4528-0, 28652-0 #### [facility] CLIA [id number] [address] [place] [address] OF [facility] PT Coag (PPP) [Time] 11.3 s Normal 9.7-13.0 [facility] Comment on above: Order Comment: Anai lui Type: BLOOD SPECIMEN Ordering Facility: [facility] Address: [address] [place] [address] Performed By: #### 3 4528-0, 32034-1 #### [facility] CLIA [id number] [address] [place] [address] SURGICAL PATHOLOGYon 024 CASE REPORT Normal [facility] Comment on above: Order Comment: Speci men Type: BLOOD SPECIMEN Ordering Facility: [facility] Address: [address] [place] [address] Result Comment: Surg ical Pathology Report Case: [id number] Authorizing Provider: Jaun Leblanc MD Collected: 05/30/2023 08:09 PM Ordering Location: [facility] Surgery Received: 05/31/2023 07:33 AM Pathologist: Jennifer Yeh MD Specimen: GALLBLADDER, Gallbladder Performed By: #### 3 4528-0, 07691-4 #### [facility] CLIA [id number] [address] [place] [address] CLINICAL HISTORY Normal [facility] Comment on above: Order Comment: Speci men Type: BLOOD SPECIMEN Ordering Facility: [facility] Address: [address] [place] [address] Result Comment: Pre- op diagnosis: Acute cholecystitis [K81.0] Performed By: #### 3 4528-0, 18573-0 #### [facility] CLIA [id number] [address] [place] [address] FINAL DIAGNOSIS [facility] Comment on above: Order Comment: Speci men Type: BLOOD SPECIMEN Ordering Facility: [facility] Address: [address] [place] [address] Result Comment: A. G allbladder, laparoscopic cholecystectomy: - Acute suppurative, calculus cholecystitis with ulceration and foci of hemorrhage and necrosis. Performed By: #### 3 4528-0, 17915-3 #### [facility] CLIA [id number] [address] [place] [address] FINAL PERFORMING LAB Normal [facility] Comment on above: Order Comment: Speci men Type: BLOOD SPECIMEN Ordering Facility: [facility] Address: [address] [place] [address] Result Comment: Diag nostic interpretation performed at [facility], [address] [place] [address] CLIA# [id number] Glass Cut Off Tender: Jennifer Yeh M.D. Performed By: #### 3 4528-0, 11123-4 #### [facility] CLIA [id number] [address] [place] [address] STATES OF [facility] GROSS DESCRIPTION A. GALLBLADDER [facility] Comment on above: Order Comment: Anai lui Type: BLOOD SPECIMEN Ordering Facility: [facility] Address: [address] [place] [address] Result Comment: Rece ived in formalin, labeled [...] measure up to 1.0 cm in thickness. Aquarium Specialist sections are submitted in cassette A1 CG May 31, 2023 8:22 AM [place] [address] CLIA#[id number] Performed By: #### 3 4528-0, 66201-9 #### [facility] CLIA [id number] [address] [place] [address] STATES [facility] MICROSCOPIC DESCRIPTION One H AND E stai waqas slide is examined. [facility] Comment on above: Order Comment: Anai lui Type: BLOOD SPECIMEN Ordering Facility: [facility] Address: [address] [place] [address] Performed By: #### 3 4528-0, 55832-4 #### [facility] CLIA [id number] [address] [place] [address] [place] aPTT PPPon 05-30-2023 aPTT Coag (PPP) [Time] 34.3 s High 23.0-32.4 [facility] Comment on above: Order Comment: Speci men Type: BLOOD SPECIMEN Ordering Facility: [facility] Address: [address] [place] [id number] Performed By: #### 3 4528-0, 85887-9 #### [facility] CLIA [id number] [address] [place] [address] [place] OF [facility] Absolute lymphocyte countOrd ered By: Best [place] on 05-29-2023 Lymphocytes Auto (Unsp spec) [#/Vol] 0.62 10*3/uL 0.83-4.51 [facility] Automated lymphocyte count a s percentage of total leukocytesOrdered By: Best Orona on 05-29-2023 Lymphocytes/100 WBC Auto (Unsp spec) 3.4 % 19-41 [facility] Basophil percentageOrdered B y: Best [place] on 05-29-2023 Basophil percentage 0-5 SEEN /hpf 0-5 [facility] Basophils/100 WBC (Bld) 0.3 % 0-1 [facility] Bilirubin [Mass/Vol] 2.60 mg/dL 0.20-1.00 [facility] Comment on above: For patients on eltr ombopag therapy, use of Dimension Hankamer TBIL is not recommended. Chloride [Moles/Vol] 107 mmol/L 98-107 [facility] Eosinophils/100 WBC (Bld) 0.0 % 0-5 [facility] Glucose [Mass/Vol] 175 mg/dL 74-106 [facility] Comment on above: Fasting Glucose resu lt greater than or equal to 126 mg/dL suggests DIABETES MELLITUS per A.D.A. criteria. Hemoglobin (Bld) [Mass/Vol] 14.1 g/dL 13.0-16.5 [facility] Monocytes/100 WBC (Bld) 6.9 % 0-10 [facility] Neutrophils (Bld) [#/Vol] 16.3 10*3/uL 2.0-7.7 [facility] Neutrophils/100 WBC (Bld) 88.4 % 47-70 [facility] Potassium [Moles/Vol] 4.3 mmol/L 3.5-5.1 [facility] Protein [Mass/Vol] 6.5 g/dL 6.4-8.2 [facility] Sodium [Moles/Vol] 136 mmol/L 136-145 [facility] WBC (Bld) [#/Vol] 18.4 10*3/uL 4.4-11.0 [facility] Bilirubin Test strip Ql (U)O rdered By: Best [place]ron[place] on 05-29-2023 Bilirubin Ql (U) Negative Negative [facility] Culture, urineOrdered By: Rossy Oron[place] on 05-29-2023 Bacteria identified Cx Nom (U) GPC Poss Enterococcus sp [facility] Determination of erythrocyte mean corpuscular volume (MCV)Ordered By: Bestnelly Orona on 05-29-2023 MCV (RBC) [Entitic vol] 94.6 fL 80-94 [facility] Erythrocyte distribution wid th ratioOrdered By: Bestnelly Orona on 05-29-2023 Erythrocyte distribution width (RBC) [Ratio] 13.1 % 11.6-14.6 [facility] Erythrocyte distribution wid th standard deviationOrdered By: Bestnelly Orona on 05-29-2023 Erythrocyte distribution width (RBC) [Entitic vol] 44.7 fL 35.1-43.9 [facility] Hematocrit Auto (Bld) [Volum e fraction]Ordered By: Best Orona on 05-29-2023 Hematocrit (Bld) [Volume fraction] 42.2 % 40-54 [facility] Immature granulocytes/100 WB C Auto (Bld)Ordered By: Bestnelly Orona on 05-29-2023 Immature granulocytes/100 WBC (Bld) 1.000 % 0.0-0.9 [facility] Comment on above: IG% - Immature Granu locytes (promyelocytes, myelocytes and metamyelocytes) > 1% indicates that a LEFT SHIFT is Present. Ketones Test strip Ql (U)Ord ered By: Best Oron[place] on 05-29-2023 Ketones Ql (U) Negative Negative [facility] Laboratory - Chemistry and C hemistry - challengeOrdered By: Bestnelly Orona on 05-29-2023 Albumin/Globulin [Mass ratio] 0.7 {ratio} 0.9-2.4 [facility] ALP [Catalytic activity/Vol] 84 U/L 45-117 [facility] ALT [Catalytic activity/Vol] 16 U/L 16-61 [facility] CO2 [Moles/Vol] 25.0 mmol/L 21.0-32.0 [facility] Globulin (S) [Mass/Vol] 3.8 g/dL 2.2-4.2 [facility] Urea nitrogen/Creatinine [Mass ratio] 18.1 mg/mg 10-20 [facility] Laboratory - Hematology and Cell countsOrdered By: Best Oron[place] on 05-29-2023 MCH (RBC) [Entitic mass] 31.6 pg 27.0-32.0 [facility] MCHC (RBC) [Mass/Vol] 33.4 g/dL 32-36 [facility] Nucleated RBC/100 WBC (Bld) [Ratio] 0 % 0-5 [facility] Platelet mean volume (Bld) [Entitic vol] 12.1 fL 6.2-12.0 [facility] Platelets (Bld) [#/Vol] 124 10*3/uL 150-450 [facility] Mucus LM Ql (Urine sed)Order ed By: Best Oron[place] on 05-29-2023 Mucus Ql (Urine sed) 0 SEEN /hpf [facility] Nitrite Test strip Ql (U)Ord ered By: Best Orona on 05-29-2023 Nitrite Ql (U) Negative Negative [facility] No Panel InformationOrdered By: Best Orona on 05-29-2023 Urine RBC 0-5 SEEN /hpf 0-5 [facility] Estimated Creatinine Clearance Calc 39.78 ml/min [facility] Estimated GFR (MDRD) Amer 58 mL/min >60 [facility] Comment on above: GFR Calc Estimated GFR (MDRD) Non-Af Amer 48 mL/min >60 [facility] Comment on above: Non- GFR Calc Protein Test strip Ql (U)Ord ered By: Best Orona on 05-29-2023 Protein Ql (U) 30 mg/dl Negative [facility] RBC Auto (Bld) [#/Vol]Ordere d By: Best Orona on 05-29-2023 RBC (Bld) [#/Vol] 4.46 10*6/uL 4.6-6.2 [facility] Serum or plasma calcium dian urement (mass/volume)Ordered By: Best Orona on 05-29-2023 Calcium [Mass/Vol] 9.5 mg/dL 8.5-10.1 [facility] Serum or plasma creatinine m easurement (mass/volume)Ordered By: Best Orona on 05-29-2023 Creatinine [Mass/Vol] 1.49 mg/dL 0.70-1.30 [facility] Comment on above: The validity of the calculated GFR & GFRAA in patients over 70 years has not been determined. Clinical correlation is essential. Serum or plasma urea nitroge n measurement (mass/volume)Ordered By: Best Orona on 05-29-2023 Urea nitrogen [Mass/Vol] 27 mg/dL 7-18 [facility] Squamous epithelial cells de tection in urine sediment by light microscopyOrdered By: Best Orona on 05-29-2023 Epithelial cells.squamous LM Ql (Urine sed) 0-5 SEEN /hpf 0-5 [facility] Thin prep Papanicolaou smear with manual screeningOrdered By: Best Orona on 05-29-2023 Thin prep Papanicolaou smear with manual screening 2.7 g/dL 3.2-5.0 [facility] Thin prep Papanicolaou smear with manual screening 20 U/L 15-37 [facility] Thin prep Papanicolaou smear with manual screening 4 5-15 [facility] Urine blood detectionOrdered By: Best Orona on 05-29-2023 RBC Ql (U) 50 /ul Negative [facility] Urine clarityOrdered By: Best Orona on 05-29-2023 Clarity (U) Sl. Cloudy Clear [facility] Urine color determinationOrd ered By: Best Orona on 05-29-2023 Color (U) Yellow Yellow [facility] Urine glucose detectionOrder ed By: Best Orona on 05-29-2023 Glucose Ql (U) Normal mg/dl Normal [facility] Urine leukocyte esterase det ection by dipstickOrdered By: Best Orona on 05-29-2023 Leukocyte esterase Test strip Ql (U) 25 /ul Negative [facility] Urine pHOrdered By: Best villegas on 05-29-2023 pH (U) 5.0 [pH] 5.0 - 8.0 [facility] Urine sediment bacteria coun t by microscopy (number/high power field)Ordered By: Best Orona on 05-29-2023 Bacteria LM.HPF (Urine sed) [#/Area] 1 /[HPF] None Seen [facility] Urine specific gravity measu rementOrdered By: Bestnelly Orona on 05-29-2023 Specific gravity (U) [Rel density] 1.020 1.002-1.030 [facility] Urine urobilinogen measureme ntOrdered By: Bestnelly Orona on 05-29-2023 Urobilinogen Ql (U) Normal mg/dl Normal [facility] Absolute lymphocyte countOrd ered By: Dr. Jackson on 08-08-2022 Lymphocytes Auto (Unsp spec) [#/Vol] 1.58 10*3/uL 0.83-4.51 [facility] Basophil percentageOrdered B y: Dr. Jackson on 08-08-2022 Basophils/100 WBC (Bld) 0.6 % 0-1 [facility] Eosinophils/100 WBC (Bld) 1.7 % 0-5 [facility] Neutrophils (Bld) [#/Vol] 9.5 10*3/uL 2.0-7.7 [facility] Neutrophils/100 WBC (Bld) 79.5 % 47-70 [facility] WBC (Bld) [#/Vol] 12.0 10*3/uL 4.4-11.0 [facility] Blood erythrocytes count (nu mber/volume)Ordered By: Dr. Jackson on 08-08-2022 RBC (Bld) [#/Vol] 4.69 10*6/uL 4.6-6.2 [facility] Blood hemoglobin measurement (mass/volume)Ordered By: Dr. Jackson on 08-08-2022 Hemoglobin (Bld) [Mass/Vol] 15.2 g/dL 13.0-16.5 [facility] Blood lymphocytes/100 leukoc ytesOrdered By: Dr. Jackson on 08-08-2022 Lymphocytes/100 WBC (Bld) 13.2 % 19-41 [facility] Blood monocytes/100 leukocyt esOrdered By: Dr. Jackson on 08-08-2022 Monocytes/100 WBC (Bld) 4.8 % 0-10 [facility] Blood platelet mean volumeOr dered By: Dr. Jackson on 08-08-2022 Platelet mean volume (Bld) [Entitic vol] 12.0 fL 6.2-12.0 [facility] Determination of erythrocyte mean corpuscular volume (MCV)Ordered By: Dr. Jackson on 08-08-2022 MCV (RBC) [Entitic vol] 94.0 fL 80-94 [facility] Hematocrit Auto (Bld) [Volum e fraction]Ordered By: Dr. Jackson on 08-08-2022 Hematocrit (Bld) [Volume fraction] 44.1 % 40-54 [facility] Laboratory - Hematology and Cell countsOrdered By: Dr. Jackson on 08-08-2022 Erythrocyte distribution width (RBC) [Entitic vol] 42.5 fL 35.1-43.9 [facility] Erythrocyte distribution width (RBC) [Ratio] 12.4 % 11.6-14.6 [facility] Immature granulocytes/100 WBC (Bld) 0.200 % 0.0-0.9 [facility] Comment on above: IG% - Immature Granu locytes (promyelocytes, myelocytes and metamyelocytes) > 1% indicates that a LEFT SHIFT is Present. MCH (RBC) [Entitic mass] 32.4 pg 27.0-32.0 [facility] Nucleated RBC/100 WBC (Bld) [Ratio] 0 % 0-5 [facility] MCHC Auto (RBC) [Mass/Vol]Or dered By: Dr. Jackson on 08-08-2022 MCHC (RBC) [Mass/Vol] 34.5 g/dL 32-36 [facility] Platelets bldOrdered By: Dr. Jackson on 08-08-2022 Platelets (Bld) [#/Vol] 166 10*3/uL 150-450 [facility] Basophil percentageOrdered B y: Dr. Meyer on 07-20-2022 Bilirubin [Mass/Vol] 1.20 mg/dL 0.20-1.00 [facility] Comment on above: For patients on eltr ombopag therapy, use of Dimension Hankamer TBIL is not recommended. Cholesterol [Mass/Vol] 132 mg/dL <200 [facility] Comment on above: <200 mg/dL Desirable 200-240 mg/dL Borderline >240 mg/dL High Risk Protein [Mass/Vol] 6.7 g/dL 6.4-8.2 [facility] Triglyceride [Mass/Vol] 126 mg/dL <199 [facility] Comment on above: The drugs N-Acetylcy steine and Metamizole may falsely depress this assay.Serum Triglycerides Reference Interval Normal <150 mg/dL Borderline high 150 - 199 mg/dL High 200 - 499 mg/dL Very High > or = 500 mg/dL Direct bilirubinOrdered By: Dr. Meyer on 07-20-2022 Bilirubin.direct [Mass/Vol] 0.30 mg/dL 0.00-0.30 [facility] Laboratory - Chemistry and C hemistry - challengeOrdered By: Dr. Meyer on 07-20-2022 ALP [Catalytic activity/Vol] 66 U/L 45-117 [facility] ALT [Catalytic activity/Vol] 20 U/L 16-61 [facility] Globulin (S) [Mass/Vol] 3.3 g/dL 2.2-4.2 [facility] Serum or plasma albumin dian urement (mass/volume)Ordered By: Dr. Meyer on 07-20-2022 Albumin [Mass/Vol] 3.4 g/dL 3.2-5.0 [facility] Serum or plasma cholesterol in HDL measurement (mass/volume)Ordered By: Dr. Meyer on 07-20-2022 Cholesterol in HDL [Mass/Vol] 46 mg/dL >40 [facility] Comment on above: The drugs N-Acetylcy steine and Metamizole may falsely depress this assay. Reference Range HDL <40 mg/dL Low HDL Cholesterol HDL >or= 60 mg/dL High HDL Cholesterol Serum or plasma cholesterol in VLDL measurement (mass/volume)Ordered By: Dr. Meyer on 07-20-2022 Cholesterol in VLDL [Mass/Vol] 25 mg/dL 5-40 [facility] Serum or plasma low density lipoprotein (LDL) cholesterol measurement (mass/volume)Ordered By: Dr. Meyer on 07-20-2022 Cholesterol in LDL [Mass/Vol] 61 mg/dL 0-130 [facility] Thin prep Papanicolaou smear with manual screeningOrdered By: Dr. Meyer on 07-20-2022 Thin prep Papanicolaou smear with manual screening 21 U/L 15-37 [facility] US KIDNEY/BLADDERon 07-01-19 23 [facility] Basophil percentageon 2021 Bilirubin [Mass/Vol] 1.30 mg/dL 0.20-1.00 [facility] Work Phone: Comment on above: For patients on eltr ombopag therapy, use of Dimension Hankamer TBIL is not recommended. Cholesterol [Mass/Vol] 144 mg/dL <200 [facility] Work Phone: Comment on above: <200 mg/dL Desirable 200-240 mg/dL Borderline >240 mg/dL High Risk Protein [Mass/Vol] 6.9 g/dL 6.4-8.2 [facility] Work Phone: Triglyceride [Mass/Vol] 164 mg/dL <199 [facility] Work Phone: Comment on above: The drugs N-Acetylcy steine and Metamizole may falsely depress this assay.Serum Triglycerides Reference Interval Normal <150 mg/dL Borderline high 150 - 199 mg/dL High 200 - 499 mg/dL Very High > or = 500 mg/dL Direct bilirubinon 2 Bilirubin.direct [Mass/Vol] 0.29 mg/dL 0.00-0.30 [facility] Work Phone: Laboratory - Chemistry and C hemistry - challengeon 12-23-2021 ALP [Catalytic activity/Vol] 63 U/L 45-117 [facility] Work Phone: ALT [Catalytic activity/Vol] 20 U/L 16-61 [facility] Work Phone: Globulin (S) [Mass/Vol] 3.5 g/dL 2.2-4.2 [facility] Work Phone: Serum or plasma albumin dian urement (mass/volume)on 09-29-2022 Albumin [Mass/Vol] 3.4 g/dL 3.2-5.0 [facility] Work Phone: Serum or plasma cholesterol in HDL measurement (mass/volume)on 12-23-2021 Cholesterol in HDL [Mass/Vol] 49 mg/dL >40 [facility] Work Phone: Comment on above: The drugs N-Acetylcy steine and Metamizole may falsely depress this assay. Reference Range HDL <40 mg/dL Low HDL Cholesterol HDL >or= 60 mg/dL High HDL Cholesterol Serum or plasma cholesterol in VLDL measurement (mass/volume)on 12-23-2021 Cholesterol in VLDL [Mass/Vol] 33 mg/dL 5-40 [facility] Work Phone: Serum or plasma low density lipoprotein (LDL) cholesterol measurement (mass/volume)on 12-23-2021 Cholesterol in LDL [Mass/Vol] 62 mg/dL 0-130 [facility] Work Phone: Thin prep Papanicolaou smear with manual screeningon 12-23-2021 Thin prep Papanicolaou smear with manual screening 19 U/L 15-37 [facility] Work Phone: Basophil percentageon 2021 Bilirubin [Mass/Vol] 1.50 mg/dL 0.20-1.00 [facility] Work Phone: Comment on above: For patients on eltr ombopag therapy, use of Dimension Hankamer TBIL is not recommended. Cholesterol [Mass/Vol] 151 mg/dL <200 [facility] Work Phone: Comment on above: <200 mg/dL Desirable 200-240 mg/dL Borderline >240 mg/dL High Risk Protein [Mass/Vol] 7.2 g/dL 6.4-8.2 [facility] Work Phone: Triglyceride [Mass/Vol] 156 mg/dL [facility] Work Phone: Comment on above: The drugs N-Acetylcy steine and Metamizole may falsely depress this assay.Serum Triglycerides Reference Interval Normal <150 mg/dL Borderline high 150 - 199 mg/dL High 200 - 499 mg/dL Very High > or = 500 mg/dL Direct bilirubinon 2 Bilirubin.direct [Mass/Vol] 0.31 mg/dL 0.00-0.30 [facility] Work Phone: Laboratory - Chemistry and C hemistry - challengeon 07-01-2021 ALP [Catalytic activity/Vol] 68 U/L 45-117 [facility] Work Phone: ALT [Catalytic activity/Vol] 20 U/L 16-61 [facility] Work Phone: Globulin (S) [Mass/Vol] 3.6 g/dL 2.2-4.2 [facility] Work Phone: Serum or plasma albumin dian urement (mass/volume)on 07-01-2021 Albumin [Mass/Vol] 3.6 g/dL 3.2-5.0 [facility] Work Phone: Serum or plasma cholesterol in HDL measurement (mass/volume)on 07-01-2021 Cholesterol in HDL [Mass/Vol] 48 mg/dL [facility] Work Phone: Comment on above: The drugs N-Acetylcy steine and Metamizole may falsely depress this assay. Reference Range HDL <40 mg/dL Low HDL Cholesterol HDL >or= 60 mg/dL High HDL Cholesterol Serum or plasma cholesterol in VLDL measurement (mass/volume)on 07-01-2021 Cholesterol in VLDL [Mass/Vol] 31 mg/dL 5-40 [facility] Work Phone: Serum or plasma low density lipoprotein (LDL) cholesterol measurement (mass/volume)on 07-01-2021 Cholesterol in LDL [Mass/Vol] 72 mg/dL 0-130 [facility] Work Phone: Thin prep Papanicolaou smear with manual screeningon 07-01-2021 Thin prep Papanicolaou smear with manual screening 23 U/L 15-37 [facility] Work Phone: Lab Report: Lipid Profileon 05-02-2017 Cholesterol 150 mg/dL Invalid Interpretation Code 200 [facility] Work Phone: HDL Cholesterol 48 mg/dL Invalid Interpretation Code [facility] Work Phone: [phone] LDL Cholesterol 66 mg/dL Invalid Interpretation Code 0-130 [facility] Work Phone: [phone] Triglyceride 180 mg/dL Invalid Interpretation Code [facility] Work Phone: [phone] very low density lipoproteins 36 mg/dL Invalid Interpretation Code 5-40 [facility] Work Phone: [phone] Lab Report: Liver Profileon 05-02-2017 Alanine aminotransferase (ALT) 21 U/L Invalid Interpretation Code 16-61 [facility] Work Phone: [phone] Albumin 3.5 g/dL Invalid Interpretation Code 3.2-5.0 [facility] Work Phone: [phone] Alkaline phosphatase (ALP) 74 U/L Invalid Interpretation Code 45-117 [facility] Work Phone: [phone] Aspartate aminotransferase (AST) 20 U/L Invalid Interpretation Code 15-37 [facility] Work Phone: [phone] Bilirubin (direct) 0.33 mg/dL High 0.00-0.30 [facility] Work Phone: [phone] Bilirubin (total) 1.80 mg/dL High 0.20-1.00 [facility] Work Phone: [phone] Globulin 3.5 g/dL Invalid Interpretation Code 2.2-4.2 [facility] Work Phone: [phone] Protein 7.0 g/dL Invalid Interpretation Code 6.4-8.2 [facility] Work Phone: [phone] Office Visiton 11-15-2016 Documentation of current medications (procedure) Done Invalid Interpretation Code [facility] Work Phone: [phone] Fall risk assessment No Invalid Interpretation Code [facility] Work Phone: [phone] Protein mass conc Done [facility] Work Phone: [phone] Lab Report: Lipid Profileon 11-02-2016 Cholesterol in HDL mass conc 52 mg/dL [facility] Work Phone: [phone] Cholesterol in LDL mass conc 62 mg/dL 0-130 [facility] Work Phone: [phone] Cholesterol mass conc 156 mg/dL [address] [facility] Work Phone: [phone] Lipoprotein.pre-beta mass conc 42 mg/dL High 5-40 [facility] Work Phone: [phone] Triglyceride mass conc 210 mg/dL High [facility] Work Phone: [phone] Lab Report: Liver Profileon 11-02-2016 Albumin mass conc 3.5 g/dL 3.4-5.0 [facility] Work Phone: [phone] Alkaline phosphatase (ALP) 70 U/L Invalid Interpretation Code 45-117 [facility] Work Phone: [phone] ALP enzyme act/vol (Bld) 70 U/L 45-117 [facility] Work Phone: [phone] ALT enzyme act/vol 21 U/L 12-78 [facility] Work Phone: [phone] AST enzyme act/vol 24 U/L 15-37 [facility] Work Phone: [phone] Bilirubin mass conc 1.70 mg/dL High 0.20-1.00 [facility] Work Phone: [phone] Bilirubin.direct mass conc 0.25 mg/dL 0.00-0.30 [facility] Work Phone: [phone] Globulin 3.5 g/dL Invalid Interpretation Code 2.3-3.5 [facility] Work Phone: [phone] Globulin mass conc (S) 3.5 g/dL 2.3-3.5 [facility] Work Phone: [phone] Protein mass conc 7.0 g/dL 6.4-8.2 [facility] Work Phone: [phone] Office Visiton 05-12-2016 Documentation of current medications (procedure) Done Invalid Interpretation Code [facility] Work Phone: [phone] Protein mass conc Done [facility] Work Phone: [phone] Chart Maintenanceon 11-12-19 Left ventricular Ejection fraction 60 % Invalid Interpretation Code [facility] Work Phone: [phone] Office Visiton 11-12-2015 Dietary management education, guidance, and counseling (procedure) yes Invalid Interpretation Code [facility] Work Phone: [phone] Tobacco smoking status NHIS Tobacco smoking status NHIS Invalid Interpretation Code [facility] Work Phone: [phone] Tobacco smoking status NHIS Never smoker [facility] Work Phone: [phone] Tobacco use [facility] Never smoker Invalid Interpretation Code [facility] Work Phone: [phone] Office Visiton 10-03-2014 cardiac risk group C Invalid Interpretation Code [facility] Work Phone: [phone] General cardiovascular disease 10Y risk [#] [place]D'[place] N/A Invalid Interpretation Code [facility] Work Phone: [phone] Clinical Lists Update: Prelo spectacle truer 01-15-2014 Anion gap 10 mmol/L Invalid Interpretation Code [facility] Work Phone: [phone] Anion gap molar conc 10 mmol/L [facility] Work Phone: [phone] Calcium mass conc 9.5 mg/dL Invalid Interpretation Code [facility] Work Phone: [phone] Chloride molar conc 102 mmol/L Invalid Interpretation Code [facility] Work Phone: [phone] CO2 28 mmol/L Invalid Interpretation Code [facility] Work Phone: [phone] CO2 ppres (BldV) 28 mmol/L [facility] Work Phone: [phone] Creatinine mass conc 1.24 mg/dL Invalid Interpretation Code [facility] Work Phone: [phone] Glucose 94 mg/dL Invalid Interpretation Code [facility] Work Phone: [phone] Glucose mass conc 94 mg/dL [facility] Work Phone: [phone] Potassium molar conc 4.5 mmol/L Invalid Interpretation Code [facility] Work Phone: [phone] Sodium molar conc 140 mmol/L Invalid Interpretation Code [facility] Work Phone: [phone] Urea nitrogen mass conc 22 mg/dL Invalid Interpretation Code [facility] Work Phone: [phone] External Other: Preferred Me thod of Contacton 08-22-2013 [employer] [facility] Work Phone: [phone] Patient's prefered method of contact secmsg Invalid Interpretation Code [facility] Work Phone: [phone] Lab Report: LIVERon 07-31-19 14 ALK 60 U/L Normal 45-117 [facility] Work Phone: [phone] GE use only - for [employer] import when terms are not otherwise specified 60 U/L Normal 45-117 [facility] Work Phone: [phone] Replaced Document: Chyna Saueron 05-17-2012 EKG QRS axis 15 deg [facility] Work Phone: [phone] electrocardiogram interpretation Sinus Rhythm WITHIN NORMAL LIMITS Invalid Interpretation Code [facility] Work Phone: [phone] Interpretation Sinus Rhythm WITHIN NORMAL LIMITS [facility] Work Phone: [phone] P [place] 36 deg [facility] Work Phone: [phone] P wave axis, electrocardiogram 36 deg Invalid Interpretation Code [facility] Work Phone: [phone] TN Interval 134 ms [facility] Work Phone: [phone] TN interval, electrocardiogram 134 ms Invalid Interpretation Code [facility] Work Phone: [phone] Pulse (Heart Rate) 61 /min Invalid Interpretation Code [facility] Work Phone: [phone] QRS axis, electrocardiogram 15 deg Invalid Interpretation Code [facility] Work Phone: [phone] QRS Duration 92 ms [facility] Work Phone: [phone] QRS duration, electrocardiogram 92 ms Invalid Interpretation Code [facility] Work Phone: [phone] QT Interval new path ms [facility] Work Phone: [phone] QT interval, electrocardiogram new path ms Invalid Interpretation Code [facility] Work Phone: [phone] T [place] 38 deg [facility] Work Phone: [phone] T wave axis, electrocardiogram 38 deg Invalid Interpretation Code [facility] Work Phone: [phone] Clinical Lists Update: Prelo spectacle truer 04-25-2012 Cholesterol.total/Sirena sterol in HDL mass ratio 3 {ratio} Invalid Interpretation Code [facility] Work Phone: Vital Signs Date Time Vital Sign Value Performing Clinician Facility 11-21-2024 09:04-0400 Body height 179.3 cm Giovanni Persaud MD Work Phone: [facility] 11-21-2024 09:04-0400 Body mass index (BMI) [Ratio] 25.84 kg/m2 Giovanni Persaud MD Work Phone: [facility] 11-21-2024 09:04-0400 Body weight 83.1 kg Giovanni Persaud MD Work Phone: [facility] 11-21-2024 09:04-0400 Diastolic blood pressure 62 mm[Hg] Giovanni Persaud MD Work Phone: [facility] 11-21-2024 09:04-0400 Heart rate 60 /min Giovanni Persaud MD Work Phone: [facility] 11-21-2024 09:04-0400 Respiratory rate 12 /min Giovanni Persaud MD Work Phone: [facility] 11-21-2024 09:04-0400 Systolic blood pressure 126 mm[Hg] Giovanni Persaud MD Work Phone: [facility] 09-03-2024 09:52-0400 Body mass index (BMI) [Ratio] 25 kg/m2 Dr. Giovanni Persaud MD Work Phone: [facility] 09-03-2024 09:52-0400 Body weight 83.[address] Giovanni Persaud MD Work Phone: [facility] 09-03-2024 09:52-0400 Diastolic blood pressure 74 mm[Hg] Dr. Giovanni Persaud MD Work Phone: [facility] 09-03-2024 09:52-0400 Heart rate 61 /min Dr. Giovanni Persaud MD Work Phone: [facility] 09-03-2024 09:52-0400 Respiratory rate 18 /min Dr. Giovanni Persaud MD Work Phone: [facility] 09-03-2024 09:52-0400 SaO2% (BldA) [Mass fraction] 98 % Dr. Giovanni Persaud MD Work Phone: [facility] 09-03-2024 09:52-0400 Systolic blood pressure 138 mm[Hg] Dr. Giovanni Persaud MD Work Phone: [facility] 05-23-2024 08:19-0500 Body mass index (BMI) [Ratio] 25.21 kg/m2 Giovanni Persaud MD Work Phone: [facility] 05-23-2024 08:19-0500 Body temperature 97.7 [degF] Giovanni Pesraud MD Work Phone: [facility] 05-23-2024 08:19-0500 Body weight 84.3 kg Giovanni Persaud MD Work Phone: [facility] 05-23-2024 08:19-0500 Diastolic blood pressure 64 mm[Hg] Giovanni Persaud MD Work Phone: [facility] 05-23-2024 08:19-0500 Heart rate 64 /min Giovanni Persaud MD Work Phone: [facility] 05-23-2024 08:19-0500 Respiratory rate 16 /min Giovanni Persaud MD Work Phone: [facility] 05-23-2024 08:19-0500 Systolic blood pressure 120 mm[Hg] Giovanni Persaud MD Work Phone: [facility] 12-28-2023 13:59-0400 Body mass index (BMI) [Ratio] 24.67 kg/m2 Giovanni Persaud MD Work Phone: [facility] 12-28-2023 13:59-0400 Body temperature 97 [degF] Giovanni Persaud MD Work Phone: [facility] 12-28-2023 13:59-0400 Body weight 82.5 kg Giovanni Persaud MD Work Phone: [facility] 12-28-2023 13:59-0400 Diastolic blood pressure 64 mm[Hg] Giovanni Persaud MD Work Phone: [facility] 12-28-2023 13:59-0400 Heart rate 60 /min Giovanni Persaud MD Work Phone: [facility] 12-28-2023 13:59-0400 Respiratory rate 16 /min Giovanni Persaud MD Work Phone: [facility] 12-28-2023 13:59-0400 Systolic blood pressure 126 mm[Hg] Goivanni Persaud MD Work Phone: [facility] 11-21-2023 08:34-0400 Body height 182.9 cm Giovanni Persaud MD Work Phone: [facility] 11-21-2023 08:34-0400 Body mass index (BMI) [Ratio] 24.61 kg/m2 Giovanni Persaud MD Work Phone: [facility] 11-21-2023 08:34-0400 Body temperature 97.11 [degF] Giovanni Persaud MD Work Phone: [facility] 11-21-2023 08:34-0400 Body weight 82.3 kg Giovanni Persaud MD Work Phone: [facility] 11-21-2023 08:34-0400 Diastolic blood pressure 68 mm[Hg] Giovanni Persaud MD Work Phone: [facility] 11-21-2023 08:34-0400 Heart rate 60 /min Giovanni Persaud MD Work Phone: [facility] 11-21-2023 08:34-0400 Respiratory rate 12 /min Giovanni Persaud MD Work Phone: [facility] 11-21-2023 08:34-0400 Systolic blood pressure 122 mm[Hg] Giovanni Persaud MD Work Phone: [facility] 08-03-2023 11:36-0400 Body height 182.[address] Giovanni Persaud Work Phone: [facility] 08-03-2023 11:36-0400 Body mass index (BMI) [Ratio] 25.2 kg/m2 Dr. Giovanni Persaud Work Phone: [facility] 08-03-2023 11:36-0400 Body weight 84.[address] Giovanni Persaud Work Phone: [facility] 08-03-2023 11:36-0400 Diastolic blood pressure 66 mm[Hg] Dr. Giovanni Persaud Work Phone: [facility] 08-03-2023 11:36-0400 Heart rate 60 /min Dr. Giovanni Persaud Work Phone: [facility] 08-03-2023 11:36-0400 Respiratory rate 16 /min Dr. Giovanni Persaud Work Phone: [facility] 08-03-2023 11:36-0400 Systolic blood pressure 129 mm[Hg] Dr. Giovanni Persaud Work Phone: [facility] 06-19-2023 11:02-0400 Body weight 84.19 kg Jaun Leblanc MD Work Phone: [facility] 06-19-2023 11:02-0400 Diastolic blood pressure 62 mm[Hg] Jaun Leblanc MD Work Phone: [facility] 06-19-2023 11:02-0400 Heart rate 67 /min Jaun Leblanc MD Work Phone: [facility] 06-19-2023 11:02-0400 SaO2% (BldA) [Mass fraction] 99 % Jaun Leblanc MD Work Phone: [facility] 06-19-2023 11:02-0400 Systolic blood pressure 134 mm[Hg] Jaun Leblanc MD Work Phone: [facility] 05-30-2023 01:06-0500 Respiratory rate 18 /min [facility] 05-30-2023 00:11-0500 Body temperature 98.2 [degF] [facility] 05-30-2023 00:11-0500 Diastolic blood pressure 84 mm[Hg] [facility] 05-30-2023 00:11-0500 Heart rate 76 /min [facility] 05-30-2023 00:11-0500 SaO2% (BldA) [Mass fraction] 98 % [facility] 05-30-2023 00:11-0500 Systolic blood pressure 122 mm[Hg] [facility] 05-29-2023 19:28-0500 Inhaled oxygen flow rate 2 L/min [facility] 05-29-2023 08:38-0500 Body height 182.88 cm [facility] 05-29-2023 08:38-0500 Body mass index (BMI) [Ratio] 26.2 kg/m2 [facility] 05-29-2023 08:38-0500 Body weight 87.5 kg [facility] 05-25-2023 08:31-0500 Body temperature 97.3 [degF] Giovanni Persaud MD Work Phone: [facility] 05-25-2023 08:31-0500 Body weight 87.5 kg Giovanni Persaud MD Work Phone: [facility] 05-25-2023 08:31-0500 Diastolic blood pressure 66 mm[Hg] Giovanni Persaud MD Work Phone: [facility] 05-25-2023 08:31-0500 Heart rate 64 /min Giovanni Persaud MD Work Phone: [facility] 05-25-2023 08:31-0500 Respiratory rate 12 /min Giovanni Persaud MD Work Phone: [facility] 05-25-2023 08:31-0500 Systolic blood pressure 114 mm[Hg] Giovanni Persaud MD Work Phone: [facility] 11-23-2022 08:27-0400 Body height 179.3 cm Giovanni Persaud MD Work Phone: [facility] 11-23-2022 08:27-0400 Body weight 84.73 kg Giovanni Persaud MD Work Phone: [facility] 11-23-2022 08:27-0400 Diastolic blood pressure 68 mm[Hg] Giovanni Persaud MD Work Phone: [facility] 11-23-2022 08:27-0400 Heart rate 56 /min Giovanni Persaud MD Work Phone: [facility] 11-23-2022 08:27-0400 Respiratory rate 12 /min Giovanni Persaud MD Work Phone: [facility] 11-23-2022 08:27-0400 Systolic blood pressure 122 mm[Hg] Giovanni Persaud MD Work Phone: [facility] 08-08-2022 16:58-0400 Diastolic blood pressure 64 mm[Hg] [facility] 08-08-2022 16:58-0400 Heart rate 79 /min [facility] 08-08-2022 16:58-0400 Respiratory rate 16 /min [facility] 08-08-2022 16:58-0400 SaO2% (BldA) [Mass fraction] 97 % [facility] 08-08-2022 16:58-0400 Systolic blood pressure 142 mm[Hg] [facility] 08-08-2022 15:52-0400 Body height 182.88 cm [facility] 08-08-2022 15:52-0400 Body mass index (BMI) [Ratio] 25.6 kg/m2 [facility] 08-08-2022 15:52-0400 Body temperature 97.5 [degF] [facility] 08-08-2022 15:52-0400 Body weight 85.68 kg [facility] 06-09-2022 12:03-0400 Diastolic blood pressure 58 mm[Hg] Giovanni Persaud MD Work Phone: [facility] 06-09-2022 12:03-0400 Systolic blood pressure 126 mm[Hg] Giovanni Persaud MD Work Phone: [facility] 06-09-2022 11:28-0400 Body weight 88 kg Giovanni Persaud MD Work Phone: [facility] 06-09-2022 11:28-0400 Heart rate 56 /min Giovanni Persaud MD Work Phone: [facility] 06-09-2022 11:28-0400 Respiratory rate 16 /min Giovanni Persaud MD Work Phone: [facility] 05-17-2022 08:19-0500 Body temperature 96.01 [degF] Giovanni Persaud MD Work Phone: [facility] 05-17-2022 08:19-0500 Body weight 87.09 kg Giovanni Persaud MD Work Phone: [facility] 05-17-2022 08:19-0500 Diastolic blood pressure 72 mm[Hg] Giovanni Persaud MD Work Phone: [facility] 05-17-2022 08:19-0500 Heart rate 60 /min Giovanni Persaud MD Work Phone: [facility] 05-17-2022 08:19-0500 Respiratory rate 12 /min Giovanni Persaud MD Work Phone: [facility] 05-17-2022 08:19-0500 Systolic blood pressure 126 mm[Hg] Giovanni Persaud MD Work Phone: [facility] 12-30-2021 10:33-0400 Body height 185.[address] Giovanni Persaud Work Phone: [facility] Work Phone: 12-30-2021 10:33-0400 Body mass index (BMI) [Ratio] 25.8 kg/m2 Dr. Giovanni Persaud Work Phone: [facility] Work Phone: 12-30-2021 10:33-0400 Body weight 88.[address] Giovanni Persaud Work Phone: [facility] Work Phone: 12-30-2021 10:33-0400 Diastolic blood pressure 77 mm[Hg] Dr. Giovanni Persaud Work Phone: [facility] Work Phone: 12-30-2021 10:33-0400 Heart rate 62 /min Dr. Giovanni Persaud Work Phone: [facility] Work Phone: 12-30-2021 10:33-0400 Respiratory rate 16 /min Dr. Giovanni Persaud Work Phone: [facility] Work Phone: 12-30-2021 10:33-0400 SaO2% (BldA) [Mass fraction] 97 % Dr. Giovanni Persaud Work Phone: [facility] Work Phone: 12-30-2021 10:33-0400 Systolic blood pressure 124 mm[Hg] Dr. Giovanni Persaud Work Phone: [facility] Work Phone: 11-09-2021 07:53-0400 Body height 181.6 cm Marlys Older [employer] Work Phone: [facility] 11-09-2021 07:53-0400 Body weight 88.91 kg Marlys Older [employer] Work Phone: [facility] 11-09-2021 07:53-0400 Diastolic blood pressure 74 mm[Hg] Marlys Older [employer] Work Phone: [facility] 11-09-2021 07:53-0400 Heart rate 68 /min Marlys Older [employer] Work Phone: [facility] 11-09-2021 07:53-0400 Respiratory rate 12 /min Marlys Older [employer] Work Phone: [facility] 11-09-2021 07:53-0400 Systolic blood pressure 124 mm[Hg] Marlys Older [employer] Work Phone: [facility] 11-15-2016 09:40-0400 BMI (Body Mass Index) 29.71 kg/m2 [facility] Work Phone: 11-15-2016 09:40-0400 BP Diastolic 76 mm[Hg] [facility] Work Phone: 11-15-2016 09:40-0400 BP Systolic 138 mm[Hg] [facility] Work Phone: 11-15-2016 09:40-0400 Height 180.34 cm [facility] Work Phone: 11-15-2016 09:40-0400 Pulse (Heart Rate) 76 /min [facility] Work Phone: 11-15-2016 09:40-0400 Respiratory Rate 20 /min [facility] Work Phone: 11-15-2016 09:40-0400 Weight 96.64 kg [facility] Work Phone: 05-12-2016 09:57-0500 BMI (Body Mass Index) 30.08 kg/m2 [facility] Work Phone: 05-12-2016 09:57-0500 BP Diastolic 60 mm[Hg] Lupillo Meyer MD [facility] Work Phone: 05-12-2016 09:57-0500 BP Systolic 110 mm[Hg] Lupillo Meyer MD [facility] Work Phone: 05-12-2016 09:57-0500 BSA (Body Surface Area) 2.18 m2 Lupillo Meyer MD [facility] Work Phone: 05-12-2016 09:57-0500 Pulse (Heart Rate) 64 /min Lupillo Meyer MD [facility] Work Phone: 05-12-2016 09:57-0500 Respiratory Rate 20 /min Lupillo Meyer MD [facility] Work Phone: 05-12-2016 09:57-0500 Weight 97.84 kg Lupillo Meyer MD [facility] Work Phone: 11-12-2015 07:40-0400 Height 180.34 cm Lupillo Meyer MD [facility] Work Phone: 05-17-2012 15:59-0500 Heart rate 61 /min Lupillo Meyer MD [facility] Work Phone: Encounters Encounter Date Encounter Type Care Provider Facility Start: 11-21-2024 End: 11-21-2024 ambulatory GIOVANNI PERSAUD Facility:[facility] Start: 11-21-2024 End: 11-21-2024 Patient encounter procedure GIOVANNI PERSAUD [facility] [place] Comment on above: Medicare annual well ness visit, subsequent (Primary Dx); Encounter for screening examination for other mental health and behavioral disorders; Screening for depression; Trigeminal neuralgia; Other hyperlipidemia; Essential hypertension, benign; 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 Giovanni Persaud MD Work Phone: [facility] Work Phone: Start: 08-27-2024 End: 08-27-[address] Giovanni Persaud MD Work Phone: [facility] Work Phone: Start: 08-27-2024 End: 08-27-2024 Patient encounter procedure Dana Harkins PA -Laboratory Work Phone: Start: 08-27-2024 End: 08-27-2024 ambulatory Giovanni Persaud Facility:[facility] Start: 08-10-2024 End: 08-12-2024 Refill Giovanni Persaud MD Work Phone: [facility] [place] Comment on above: Refill Request Start: 07-26-2024 End: 07-27-2024 ambulatory Giovanni Persaud MD Work Phone: [facility] [place] Comment on above: My Gabapetin prescri ption Start: 07-24-2024 End: 07-25-2024 Refill Giovanni Persaud MD Work Phone: [facility] [place] Comment on above: Refill Request Start: 06-12-2024 End: 06-13-2024 Refill Giovanni Persaud MD Work Phone: [facility] [place] Comment on above: Refill Request Start: 05-23-2024 End: 05-23-2024 ambulatory GIOVANNI PERSAUD Facility:[facility] Start: 05-23-2024 End: 05-23-2024 Office outpatient visit 15 minutes Giovanni Persaud MD Work Phone: [facility] [place] Comment on above: Essential hypertensi on, benign (Primary Dx); 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, unspecified vessel or lesion type; Stage 3a chronic kidney disease (HCC); Diarrhea, unspecified type Start: 05-17-2024 End: 05-17-2024 Follow-up encounter Giovanni Persaud MD Work Phone: [facility] [place] Start: 05-16-2024 End: 05-16-2024 ambulatory GIOVANNI PERSAUD Facility:[facility] Start: 01-23-2024 End: 01-23-2024 ambulatory GIOVANNI PERSAUD Facility:[facility] Start: 01-10-2024 End: 01-10-2024 Refill Giovanni Persaud MD Work Phone: Internal [facility] [place] Comment on above: Refill Request Start: 01-04-2024 End: 01-04-2024 ambulatory GIOVANNI PERSAUD Facility:[facility] Start: 01-01-2024 End: 01-01-2024 Telephone encounter Giovanni Persaud MD Work Phone: Internal [facility] Comment on above: Orders Start: 12-30-2023 End: 12-30-2023 Orders Only Giovanni Persaud MD Work Phone: Internal [facility] Comment on above: Stage 3a chronic kid karen disease (HCC) (Primary Dx) Start: 12-28-2023 End: 12-28-2023 ambulatory GIOVANNI PERSAUD Facility:[facility] Start: 12-28-2023 End: 12-28-2023 Patient encounter procedure Giovanni Persaud MD Work Phone: Internal [facility] Comment on above: Diarrhea, unspecifie d type (Primary Dx) Start: 11-21-2023 End: 11-21-2023 Patient encounter procedure Giovanni Persaud MD Work Phone: Internal [facility] Comment on above: Medicare annual well ness visit, subsequent (Primary Dx); Encounter for screening examination for other mental health and behavioral disorders; Screening for depression; Essential hypertension, benign; Other hyperlipidemia; Trigeminal neuralgia; 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 Giovanni Presaud Work Phone: [facility]-Laboratory Work Phone: Start: 08-01-2023 End: 08-01-[address] Giovanni Persaud Work Phone: [facility] Work Phone: Start: 08-01-2023 End: 08-01-[address] Giovanni Persaud Work Phone: [facility]-Laboratory Work Phone: Start: 06-19-2023 [phone] Start: 06-19-2023 End: 06-19-2023 Patient encounter procedure Jaun Leblanc MD Work Phone: [facility] Comment on above: S/P laparoscopic cho lecystectomy (Primary Dx) Start: 05-30-2023 Evaluation and manag ement of inpatient STEPHANE ROSALES Facility:[id number] Start: 05-29-2023 End: 05-30-2023 Emergency department patient visit [facility]-Emergency Department Work Phone: Start: 05-25-2023 End: 05-25-2023 Patient encounter procedure Giovanni Persaud MD Work Phone: [facility] [place] Comment on above: Stage 3a chronic kid karen disease (HCC) (Primary Dx); Other hyperlipidemia; Essential hypertension, benign Start: 02-27-2023 Refill Marlys Manjit james [employer] Work Phone: [facility] [place] Comment on above: Refill Request Start: 02-08-2023 ambulatory Marlys Older [employer] Work Phone: [facility] [place] Comment on above: FLUE VACCINATION Start: 01-23-2023 ambulatory Marlys Older [employer] Work Phone: [facility] [place] Comment on above: COVID VACCINATION Start: 01-03-2023 ambulatory Giovanni king MD Work Phone: [facility] [place] Comment on above: RSV VACCINATION Start: 11-23-2022 End: 11-23-2022 Patient encounter procedure Giovanni Persaud MD Work Phone: [facility] [place] Comment on above: Medicare annual well ness visit, subsequent (Primary Dx); Trigeminal neuralgia; Essential hypertension, benign; Other hyperlipidemia; 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, unspecified vessel or lesion type; Stage 3a chronic kidney disease (HCC); BPH with obstruction/lower urinary tract symptoms Start: 10-22-2022 Refill Marlys Older [employer] Work Phone: [facility] [place] Comment on above: Refill Request Start: 08-08-2022 End: 08-08-2022 Emergency department patient visit [facility]-Emergency Department Start: 08-01-2022 Refill Marlys Older [employer] Work Phone: [facility] [place] Comment on above: Refill Request Start: 07-20-2022 End: 07-20-2022 Patient encounter procedure [facility]-Laboratory Start: 06-30-2022 End: 06-30-2022 Subsequent hospital visit by physician [facility] Work Phone: Radiology Comment on above: Stage 3a chronic kid karen disease (HCC) [N18.31] Start: 06-09-2022 End: 06-09-2022 Patient encounter procedure Giovanni Persaud MD Work Phone: [facility] [place] Comment on above: Stage 3a chronic kid karen disease (HCC) (Primary Dx); Essential hypertension, benign Start: 05-30-2022 Refill Marlys Older [employer] Work Phone: [facility] [place] Comment on above: Refill Request Start: 05-17-2022 End: 05-17-2022 Patient encounter procedure Giovanni Persaud MD Work Phone: [facility] [place] Comment on above: Stage 3a chronic kid karen disease (HCC) (Primary Dx); Essential hypertension, benign; Other hyperlipidemia Start: 01-18-2022 Non-patient / Non-visit Dr. Maggi Persaud Work Phone: [facility] Start: 01-18-2022 End: 01-18-[address] Giovanni Persaud Work Phone: [facility] Work Phone: Start: 01-18-2022 End: 01-18-[address] Giovanni Persaud Work Phone: [facility]-Cardiovascul ar Services Start: 12-30-2021 End: 12-30-[address] Giovanni Persaud Work Phone: [facility] [facility] Start: 12-23-2021 End: 12-23-2021 ambulatory [facility] Work Phone: Start: 12-23-2021 End: 12-23-2021 Patient encounter procedure [facility]-Laboratory Start: 11-09-2021 End: 11-09-2021 Patient encounter procedure Marlys Older [employer] Work Phone: [facility] [place] Comment on above: Medicare annual [facility] visit, subsequent (Primary Dx); Essential hypertension, benign; Trigeminal neuralgia; Stage 3a chronic kidney disease (HCC) Start: 11-01-2021 ambulatory Marlys Older [employer] Work Phone: [facility] [place] Comment on above: BLOOD TEST Start: 10-25-2021 Refill Marlys Older [employer] Work Phone: [facility] [place] Comment on above: Refill Request Start: 08-24-2021 Refill Giovanni king MD Work Phone: [facility] [place] Comment on above: Refill Request Start: 08-10-2021 Refill Marlys Older [employer] Work Phone: [facility] [place] Comment on above: Refill Request Start: 08-03-2021 [facility] Get Medical Advice Marlys Sourave r [employer] Work Phone: [facility] [place] Comment on above: FLOMAX REFILL Start: 07-01-2021 End: 07-01-2021 Patient encounter procedure [facility] Procedures Date Procedure Procedure Detail Performing Clinician Start: 11-21-2024 Adult depression screening assessment Giovanni Persaud MD Work Phone: Start: 11-21-2023 Adult depression screening assessment Giovanni Persaud MD Work Phone: Start: 05-29-[address] Julian Persaud Work Phone: Start: 05-29-2023 Computed tomography of abdomen and pelvis with intravenous contrast Start: 05-29-2023 US scan of gallbladder Start: 06-30-2022 Us retroperitoneal r eal time w/image complete Giovanni Persaud MD Work [...] [AGGREGATE] Omar Manuel Start: 02-11-2014 End: 02-11-2014 S IRON WORKER Lupillo Meyer MD Start: 02-11-2014 End: 02-11-2014 Follow Up Appt 6 months Omar Manuel Start: 01-25-2014 End: 01-28-2014 *Hepatic Function Panel Dana Harkins PA-C Work Phone: Start: 01-25-2014 End: 01-28-2014 Lipid panel [AGGREGATE] Dana Harkins PA-C Work Phone: Start: 08-20-2013 End: 11-01-2013 Carotid duplex Lupillo Meyer MD Start: 08-20-2013 End: 08-20-2013 S IRON WORKER Lupillo Meyer MD Start: 08-20-2013 End: 08-26-2013 Echo [...] Lupillo Meyer MD Start: 05-17-2012 End: 11-10-2015 ROCHELLE Meyer MD Start: 05-17-2012 End: 11-10-2015 Electrocardiogram, complete Lupillo Meyer MD Start: 05-17-2012 End: 11-10-2015 Follow Up Appt 3 months Omar Manuel Start: 05-17-2012 End: 08-15-2012 Lipid panel [AGGREGATE] Omar Manuel Start: 05-08-2012 Percutaneous translu fredi coronary angioplasty PERCUTANEOUS TRANSLUMINAL CORONARY ANGIOPLASTY, HX OF Lupillo Meyer MD Start: 05-08-2012 Placement of stent i n coronary artery Status post cardiac stent placement Lupillo Meyer MD Start: 04-24-2012 History of placement of stent for coronary artery disease History of coronary artery stent placement Cristel Guerrero [employer]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 Comment on above: YEO-WEJ-Hdgy-Mid D2 w/ 2.5 x 16 mm Promus Element Stent 04/24/2012 History of cholecystectomy S/P laparoscopic cholecystectomy Jaun Leblanc MD Work Phone: Plan of Treatment Date Care Activity Detail Author Start: 11-30-2033 Urine microalbumin profile DTaP,Tdap,Td Vaccine (4 - Td or Tdap) [facility] Start: 11-13-2027 Diabetes Screening Diabetes Screenoh g [facility] Start: 05-16-2027 [facility] Start: 12-27-2026 [facility] Start: 11-13-2026 [facility] Start: 05-31-2026 [facility] Start: 05-18-2026 [facility] Start: 11-21-2025 Anxiety Screening Anxiety Screening [facility] Start: 11-21-2025 Depression Screening Depression Scre ening [facility] Start: 11-21-2025 End: 11-21-2025 Patient encounter procedure 11/21/2025 10:00 AM EDT Office Visit [facility] [place] [address] [place], [place] [id number] Giovanni Persaud MD [address] [place], [place] [id number] Annual Medicare Wellness [facility] [place] Comment on above: Annual Medicare Well ness Start: 11-17-2025 DIABETES SCREEN DIABETES SCREEN [facility] Start: 11-17-2025 Diabetes Screening Diabetes Screenin g [facility] Start: 08-27-2025 Hepatitis B surface antibody level LDL Cholesterol [facility] Start: 06-07-2025 DIABETES SCREEN DIABETES SCREEN [facility] Start: 12-27-2024 Covid-19 Vaccine () Covid-19 Vaccine () [facility] Comment on above: Postponed from 11/25 (Declined at this time) Start: 12-08-2024 DIABETES SCREEN DIABETES SCREEN [facility] Start: 11-25-2024 Influenza vaccination Influenza Vacc ine (#1) [facility] Start: 11-21-2024 End: 11-21-2024 Patient encounter procedure 11/21/2024 9:00 AM EDT Office Visit [facility] [place] [address] [place], [place] [id number] Giovanni Persaud MD [address] [place], [place] [address] Annual Medical Wellness w/6 month follow-up [facility] [place] Comment on above: Annual Medical Welln ess w/6 month follow-up Start: 11-20-2024 Anxiety Screening Anxiety Screening [facility] Start: 11-20-2024 Depression Screening Depression Scre ening [facility] Start: 11-13-2024 Hepatitis B surface antibody level LDL Cholesterol [facility] Start: 11-04-2024 End: 02-03-2025 Basic metabolic 2000 panel - Serum or Plasma BASIC METABOLIC PANEL Lab Routine Stage 3a chronic kidney disease (HCC) Expected: 11/04/2024, Expires: 02/03/2025 [facility] Work Phone: Comment on above: Expected: 11/04/2024 , Expires: 02/03/2025 Start: 11-04-2024 DIABETES SCREEN DIABETES SCREEN [facility] Start: 06-28-2024 Covid-19 Vaccine () Covid-19 Vaccine () [facility] Start: 05-23-2024 End: 08-22-2024 Basic metabolic 2000 panel - Serum or Plasma BASIC METABOLIC PANEL Lab Routine Stage 3a chronic kidney disease (HCC) Expected: 05/23/2024, Expires: 08/22/2024 [facility] Comment on above: Expected: 05/23/2024 , Expires: 08/22/2024 Start: 05-23-2024 End: 08-22-2024 CBC panel - Blood by Automated count COMPLETE BLOOD COUNT Lab Routine Anemia, unspecified type Expected: 05/23/2024, Expires: 08/22/2024 [facility] Work Phone: Comment on above: Expected: 05/23/2024 , Expires: 08/22/2024 Start: 05-23-2024 End: 05-23-2024 Patient encounter procedure 05/23/2024 8:40 AM EST Office Visit [facility] [place] [address] [place] [address] Giovanni Persaud MD [address] [place] [address] 6 month follow-up [facility] [place] Comment on above: 6 month follow-up Start: 05-13-2024 DIABETES SCREEN DIABETES SCREEN [facility] Start: 03-27-2024 Advance Directive Discussion Advance Directive Discussion [facility] Start: 03-27-2024 Medicare Advantage Annual Wellness Visit Medicare Advantage Annual Wellness Visit [facility] Start: 01-13-2024 End: 04-13-2024 Basic metabolic 2000 panel - Serum or Plasma BASIC METABOLIC PANEL Lab Routine Stage 3a chronic kidney disease (HCC) Expected: 01/13/2024, Expires: 04/13/2024 [facility] Work Phone: Comment on above: Expected: 01/13/2024 , Expires: 04/13/2024 Start: 01-01-2024 End: 04-01-2024 [facility] LACTOFERRIN/LEUKOCYTES FECAL LACTOFERRIN/LEUKOCYTES Lab Routine Diarrhea, unspecified type Expected: 01/01/2024, Expires: 04/01/2024 [facility] Work Phone: Comment on above: Expected: 01/01/2024 , Expires: 04/01/2024 Start: 12-28-2023 End: 03-28-2024 Basic metabolic 2000 panel - Serum or Plasma [facility] Comment on above: Expected: 12/28/2023 , Expires: 03/28/2024 Start: 12-28-2023 End: 03-28-2024 CBC panel - Blood by Automated count [facility] Work Phone: Comment on above: Expected: 12/28/2023 , Expires: 03/28/2024 Start: 11-26-2023 Influenza vaccination Influenza Vacc ine (#1) [facility] Start: 11-23-2023 End: 02-22-2024 Comprehensive metabolic 2000 panel - Serum or Plasma COMP METABOLIC PANEL Lab Routine Other hyperlipidemia Expected: 11/23/2023, Expires: 02/22/2024 [facility] Work Phone: Comment on above: Expected: 11/23/2023 , Expires: 02/22/2024 Start: 11-23-2023 End: 02-22-2024 Lipid 1996 panel - Serum or Plasma LIPID PANEL BASIC Lab Routine Other hyperlipidemia Expected: 11/23/2023, Expires: 02/22/2024 [facility] Work Phone: Comment on above: Expected: 11/23/2023 , Expires: 02/22/2024 Start: 11-21-2023 End: 11-21-2023 Patient encounter procedure 11/21/2023 9:00 AM EDT Office Visit [facility] [address] [place], [place] [id number] Giovanni Persaud MD [address] [place] [address] 6 month follow up - Medicare Wellness [facility] [place] Comment on above: 6 month follow up - Medicare Wellness Start: 11-18-2023 Hepatitis B surface antibody level LDL CHOLESTEROL [facility] Start: 05-29-2023 Bacteria identified in Urine by Culture [facility] Start: 05-29-2023 [facility] Start: 05-25-2023 End: 07-25-2023 Basic metabolic 2000 panel - Serum or Plasma BASIC METABOLIC PNL Lab Routine Stage 3a chronic kidney disease (HCC) Expected: 05/25/2023, Expires: 07/25/2023 [facility] Work Phone: Comment on above: Expected: 05/25/2023 , Expires: 07/25/2023 Start: 05-25-2023 End: 07-25-2023 CBC panel - Blood by Automated count CBC Lab Routine Stage 3a chronic kidney disease (HCC) Expected: 05/25/2023, Expires: 07/25/2023 [facility] Work Phone: Comment on above: Expected: 05/25/2023 , Expires: 07/25/2023 Start: 05-25-2023 End: 07-25-2023 PSA/PROSTSPECAG SCRN PSA/PROSTSPECAG SCRN Lab Routine BPH with obstruction/lower urinary tract symptoms Expected: 05/25/2023, Expires: 07/25/2023 [facility] Work Phone: Comment on above: Expected: 05/25/2023 , Expires: 07/25/2023 Start: 05-22-2023 Covid-19 Vaccine () Covid-19 Vaccine () [facility] Start: 03-27-2023 Advance Directive Discussion Advance Directive Discussion [facility] Start: 03-27-2023 Behavioral Health Screening Behavioral Health Screening [facility] Start: 03-27-2023 Depression Assessment Depression Ass essment [facility] Start: 01-18-2023 Urine microalbumin profile [facility] Start: 11-25-2022 Covid-19 Vaccine () Covid-19 Vaccine () [facility] Start: 11-25-2022 Influenza vaccination [facility] Start: 11-14-2022 End: 01-14-2023 Comprehensive metabolic 2000 panel - Serum or Plasma COMP METABOLIC PANEL Lab Routine Other hyperlipidemia Expected: 11/14/2022, Expires: 01/14/2023 [facility] Work Phone: Comment on above: Expected: 11/14/2022 , Expires: 01/14/2023 Start: 11-14-2022 End: 01-14-2023 Lipid 1996 panel - Serum or Plasma LIPID PANEL BASIC Lab Routine Other hyperlipidemia Expected: 11/14/2022, Expires: 01/14/2023 [facility] Work Phone: Comment on above: Expected: 11/14/2022 , Expires: 01/14/2023 Start: 07-01-2022 Hepatitis B surface antibody level LDL CHOLESTEROL [facility] Start: 05-31-2022 End: 07-31-2022 Basic metabolic 2000 panel - Serum or Plasma BASIC METABOLIC PNL Lab Routine Stage 3a chronic kidney disease (HCC) Expected: 05/31/2022, Expires: 07/31/2022 [facility] Work Phone: Comment on above: Expected: 05/31/2022 , Expires: 07/31/2022 Start: 04-16-2022 COVID-19 VACCINE (6 - Moderna series) COVID-19 VACCINE (6 - Moderna series) [facility] Start: 03-27-2022 ADVANCE DIRECTIVE DISCUSSION ADVANCE DIRECTIVE DISCUSSION [facility] Start: 03-27-2022 DEPRESSION ASSESSMENT DEPRESSION ASS ESSMENT [facility] Start: 11-25-2021 Influenza vaccination INFLUENZA (#1) [facility] Start: 11-23-2021 End: 01-23-2022 Basic metabolic 2000 panel - Serum or Plasma BASIC METABOLIC PNL Lab Routine Stage 3a chronic kidney disease (HCC) Expected: 11/23/2021 (Approximate), Expires: 01/23/2022 [facility] Work Phone: Comment on above: Expected: 11/23/2021 (Approximate), Expires: 01/23/2022 Start: 11-02-2021 End: 01-02-2022 Basic metabolic 2000 panel - Serum or Plasma BASIC METABOLIC PNL Lab Routine Stage 3a chronic kidney disease (HCC) Expected: 11/02/2021, Expires: 01/02/2022 [facility] Work Phone: Comment on above: Expected: 11/02/2021 , Expires: 01/02/2022 Start: 11-02-2021 End: 01-02-2022 CBC panel - Blood by Automated count CBC Lab Routine Stage 3a chronic kidney disease (HCC) Expected: 11/02/2021, Expires: 01/02/2022 [facility] Work Phone: Comment on above: Expected: 11/02/2021 , Expires: 01/02/2022 Start: 05-31-2021 COVID-19 VACCINE (4 - Booster for Moderna series) COVID-19 VACCINE (4 - Booster for Moderna series) [facility] Start: 03-27-2021 ADVANCE DIRECTIVE DISCUSSION ADVANCE DIRECTIVE DISCUSSION [facility] Start: 11-16-2017 End: 11-16-2017 Appointment Appointment [facility] Work Phone: Start: 05-05-2017 End: 05-02-2017 *Hepatic Function Panel *Hepatic Function Panel [facility] Work Phone: Start: 05-05-2017 End: 05-02-2017 Lipid panel [AGGREGATE] *Lipid Profile CC PCP [facility] Work Phone: Start: 11-15-2016 End: 11-15-2016 Appointment Appointment [facility] Work Phone: Start: 11-15-2016 End: 11-15-2016 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 [facility] Work Phone: Start: 11-15-2016 End: 11-15-2016 Follow Up Appt 1 year Follow Up Appt 1 year [facility] Work Phone: Start: 11-02-2016 End: 11-04-2016 *Hepatic Function Panel *Hepatic Function Panel [facility] Work Phone: Start: 11-02-2016 End: 11-04-2016 Lipid panel [AGGREGATE] *Lipid Profile CC PCP [facility] Work Phone: Start: 06-06-2016 End: 05-19-2016 Nuclear stress test -exercise Nuclear stress test -exercise [facility] Work Phone: Start: 05-12-2016 End: 05-12-2016 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 [facility] Work Phone: Start: 05-12-2016 End: 05-12-2016 Follow Up Appt 6 months Follow Up Appt 6 months [facility] Work Phone: Start: 05-04-2016 End: 05-04-2016 *Hepatic Function Panel *Hepatic Function Panel [facility] Work Phone: Start: 05-04-2016 End: 05-04-2016 Lipid panel [AGGREGATE] *Lipid Profile CC PCP [facility] Work Phone: Start: 11-12-2015 End: 11-12-2015 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 [facility] Work Phone: Start: 11-12-2015 End: 11-12-2015 Follow Up Appt 6 months Follow Up Appt 6 months [facility] Work Phone: Start: 10-13-2015 End: 11-04-2015 *Hepatic Function Panel *Hepatic Function Panel [facility] Work Phone: Start: 10-13-2015 End: 11-04-2015 Lipid panel [AGGREGATE] *Lipid Profile CC PCP [facility] Work Phone: Start: 04-21-2015 End: 11-10-2015 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 [facility] Work Phone: Start: 04-21-2015 End: 11-10-2015 Follow Up Appt 6 months Follow Up Appt 6 months [facility] Work Phone: Start: 03-24-2015 End: 04-14-2015 *Hepatic Function Panel *Hepatic Function Panel [facility] Work Phone: Start: 03-24-2015 End: 04-14-2015 Lipid panel [AGGREGATE] *Lipid Profile CC PCP [facility] Work Phone: Start: 10-03-2014 End: 10-03-2014 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 [facility] Work Phone: Start: 10-03-2014 End: 10-03-2014 Follow Up Appt 6 months Follow Up Appt 6 months [facility] Work Phone: Start: 07-25-2014 End: 09-23-2014 *Hepatic Function Panel *Hepatic Function Panel [facility] Work Phone: Start: 07-25-2014 End: 09-23-2014 Lipid panel [AGGREGATE] *Lipid Profile CC PCP [facility] Work Phone: Start: 02-11-2014 End: 02-11-2014 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 [facility] Work Phone: Start: 02-11-2014 End: 02-11-2014 Follow Up Appt 6 months Follow Up Appt 6 months [facility] Work Phone: Start: 01-25-2014 End: 01-28-2014 *Hepatic Function Panel *Hepatic Function Panel [facility] Work Phone: Start: 01-25-2014 End: 01-28-2014 Lipid panel [AGGREGATE] *Lipid Profile CC PCP [facility] Work Phone: Start: 08-20-2013 End: 08-20-2013 Carotid duplex Carotid duplex [facility] Work Phone: Start: 08-20-2013 End: 08-20-2013 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 [facility] Work Phone: Start: 08-20-2013 End: 08-20-2013 Echo exam of abdomen US Abdominal (aneurysm screening) [facility] Work Phone: Start: 08-20-2013 End: 08-20-2013 Follow Up Appt 6 months Follow Up Appt 6 months [facility] Work Phone: Start: 08-20-2013 End: 08-20-2013 Nuclear stress test -exercise Nuclear stress test -exercise [facility] Work Phone: Start: 06-25-2013 End: 07-30-2013 *Hepatic Function Panel *Hepatic Function Panel [facility] Work Phone: Start: 06-25-2013 End: 07-30-2013 Lipid panel [AGGREGATE] *Lipid Profile CC PCP [facility] Work Phone: Start: 03-07-2013 End: 03-07-2013 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 [facility] Work Phone: Start: 03-07-2013 End: 03-07-2013 Follow Up Appt 6 months Follow Up Appt 6 months [facility] Work Phone: Start: 01-25-2013 End: 01-25-2013 *Hepatic Function Panel *Hepatic Function Panel [facility] Work Phone: Start: 01-25-2013 End: 01-25-2013 Lipid panel [AGGREGATE] *Lipid Profile CC PCP [facility] Work Phone: Start: 08-21-2012 End: 08-21-2012 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 [facility] Work Phone: Start: 08-21-2012 End: 08-21-2012 Follow Up Appt 6 months Follow Up Appt 6 months [facility] Work Phone: Start: 05-17-2012 End: 08-15-2012 *Hepatic Function Panel *Hepatic Function Panel [facility] Work Phone: Start: 05-17-2012 End: 11-10-2015 Cardiac Rehab Cardiac Rehab [facility] Work Phone: Start: 05-17-2012 End: 11-10-2015 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 [facility] Work Phone: Start: 05-17-2012 End: 11-10-2015 Electrocardiogram, complete EKG (In office) [facility] Work Phone: Start: 05-17-2012 End: 11-10-2015 Follow Up Appt 3 months Follow Up Appt 3 months [facility] Work Phone: Start: 05-17-2012 End: 08-15-2012 Lipid panel [AGGREGATE] *Lipid Profile [facility] Work Phone: FECAL LACTOFERRIN/LEUKOCYTES FECAL LACTOFERRIN/LEUKOCYTES Lab Routine Diarrhea, unspecified type Ordered: 12/28/2023 [facility] Comment on above: Ordered: 12/28/2023 Patient Education [facility] Work Phone: Patient referral [facility] Work Phone: End: 07-09-2023 US KIDNEY/BLADDER US KIDNEY/BLADDER Radiology Routine Stage 3a chronic kidney disease (HCC) 1 Occurrences starting 06/09/2022 until 07/09/2023 [facility] Work Phone: Comment on above: 1 Occurrences starti ng 06/09/2022 until 07/09/2023 [facility] Immunizations Immunization Date Immunization Notes Care Provider Kelin masterson 12-29-2023 COVID-19 vaccine, ag e 12+ yr (MODERNA) Giovanni Persaud MD Work Phone: [facility] 12-15-2023 Seasonal trivalent influenza vaccine, adjuvanted, preservative free Giovanni Persaud MD Work Phone: [facility] 12-15-2023 influenza virus vacc ine, unspecified formulation Giovanni Persaud MD Work Phone: [facility] 12-01-2023 tetanus toxoid, redu tahir diphtheria toxoid, and acellular pertussis vaccine, adsorbed Giovanni Persaud MD Work Phone: [facility] 11-21-2023 pneumococcal conjuga te (PCV20) vaccine, 20 valent (PREVNAR 20) Giovanni Persaud MD Work Phone: [facility] 11-21-2023 pneumococcal Conjuga te, unspecified formulation Giovanni Persaud MD Work Phone: [facility] 02-06-2023 influenza, high dose seasonal, preservative-free [employer]arly[employer] Work Phone: [facility] Work Phone: 02-06-2023 influenza virus vacc ine, unspecified formulation Giovanni Persaud MD Work Phone: [facility] 01-19-2023 COVID-19 vaccine, ag e 12+ yr, 2022- season (MODERNA) [employer] Work Phone: [facility] 01-03-2023 respiratory syncytia l virus (RSV), unspecified formulation Giovanni Persaud MD Work Phone: [facility] Work Phone: 01-04-2022 influenza (HD-IIV4) vaccine, age 65+ yr, high dose, quadrivalent, PF (FLUZONE HIGH-DOSE) [employer] Work Phone: [facility] Work Phone: 01-04-2022 influenza virus vacc ine, unspecified formulation Giovanni Persaud MD Work Phone: [facility] 12-07-2020 influenza (HD-IIV4) vaccine, age 65+ yr, high dose, quadrivalent, PF (FLUZONE HIGH-DOSE) [employer]arlys [employer] Work Phone: [facility] Work Phone: 12-07-2020 influenza, high dose seasonal, preservative-free [employer]arlys [employer] Work Phone: [facility] Work Phone: 05-15-2020 Covid (Moderna) [facility] Work Phone: 04-17-2020 Covid (Moderna) [facility] 12-10-2019 influenza, high dose seasonal, preservative-free Marlys [employer] Work Phone: [facility] Work Phone: 12-10-2019 influenza, injectabl e, quadrivalent, preservative free Marlys [employer] Work Phone: [facility] Work Phone: 12-26-2018 influenza, high dose seasonal, preservative-free [employer]arlys [employer] Work Phone: [facility] Work Phone: 12-11-2018 zoster vaccine recombinant [employer]arly[employer] Work Phone: [facility] Work Phone: 07-18-2018 zoster vaccine recombinant [employer]arlys [employer] Work Phone: [facility] Work Phone: 12-25-2017 influenza, high dose seasonal, preservative-free Marlys [employer] Work Phone: [facility] Work Phone: 12-12-2016 influenza, high dose seasonal, preservative-free Marlys [employer] Work Phone: [facility] Work Phone: 12-01-2015 influenza, high dose seasonal, preservative-free Marlys [employer] Work Phone: [facility] 12-24-2014 influenza, seasonal, injectable [employer]arlys [employer] Work Phone: [facility] 07-23-2014 pneumococcal conjuga te vaccine, 13 valent Marlys [employer] Work Phone: [facility] 12-23-2013 influenza virus vacc ine, whole virus [employer]arlys [employer] Work Phone: [facility] Work Phone: 03-12-2013 zoster vaccine, live Marlys Old er [employer] Work Phone: [facility] Work Phone: 01-18-2013 tetanus and diphther ia toxoids, adsorbed, preservative free, for adult use (2 Lf of tetanus toxoid and 2 Lf of diphtheria toxoid) [employer]arlys [employer] Work Phone: [facility] 01-08-2013 influenza virus vacc ine, unspecified formulation Marlys [employer] Work Phone: [facility] Work Phone: 01-17-2011 influenza virus vacc ine, unspecified formulation [employer] Work Phone: [facility] Work Phone: 01-25-2006 influenza virus vacc ine, unspecified formulation [employer] Work Phone: [facility] 06-17-2003 pneumococcal polysaccharide vaccine, 23 valent Marlys [employer] Work Phone: [facility] Work Phone: 05-17-2002 diphtheria and tetan us toxoids, adsorbed for pediatric use [employer]arlys [employer] Work Phone: [facility] Work Phone: Payers Date Payer Category Payer Self-pay [id number] 2021 Medicare [id number] 2021 Medicare AETNA MEDICARE A ETNA MEDICARE PPO [id number] 2021-Present [phone] [address] [place] [address] [facility] [id number] 2021 Medicare (Managed Care) [employer] [place] D[place]ARE [id number] 2012 Private Health Insurance 101 [id number] Unknown [id number] Unknown [id number] Unknown [id number] Social History Date Type Detail Facility Start: 12-31-2020 End: 05-29-2023 Tobacco smoking status NHIS Unknown if ever smoked [facility] Start: 05-18-2016 None [facility] Start: 05-18-2016 Non-smoker [facility] Start: 1940 Sex Assigned At Male [facility] Start: 04-26-2011 End: 11-09-2021 Tobacco smoking status NHIS Never smoked tobacco [facility] Start: 05-12-2021 End: 11-21-2024 Alcohol intake Current drinker of alcohol (finding) [facility] Start: 05-12-2021 End: 08-16-2022 Alcohol intake [facility] Work Phone: Start: 08-01-2020 End: 05-11-2021 History SDOH Alcohol Frequency 3 [facility] Start: 08-01-2020 History SDOH Alcohol Std Drinks 98 [facility] Start: 08-01-2020 History SDOH Alcohol Binge 1 [facility] Start: 08-01-2020 History SDOH Social Connections Phone 2 [facility] Start: 08-01-2020 End: 05-17-2022 History SDOH Physical Activity MPS 4 [facility] Start: 08-01-2020 History SDOH Financial 5 [facility] Start: 08-01-2020 History SDOH Housing Places Lived 0 [facility] Start: 08-01-2020 Education 20 [facility] Start: 1940 Sex Assigned At Not on file [facility] Start: 04-26-2011 End: 11-09-2021 Tobacco use and exposure Smokeless tobacco non-user [facility] Work Phone: Start: 08-16-2022 End: 11-21-2024 Tobacco use panel [facility] Work Phone: Start: 02-26-2012 National Score (1-10 0), lower number is lower risk 60 [facility] Do you belong to any clubs or organizations such as orthodox groups, unions, fraternal or athletic groups, or school groups? No [facility] Are you now , , , , never or living with a partner? [facility] How often to you hav e a drink containing alcohol? 2-4 times a month [facility] How often do you hav e 6 or more drinks on 1 occasion? Never [facility] Do you feel stress - tense, restless, nervous, or anxious, or unable to sleep at night because your mind is troubled all the time - these days [OSQ] Not at all [facility] (I/We) worried wheth er (my/our) food would run out before (I/we) got money to buy more. Never true [facility] How often to you hav e a drink containing alcohol? Monthly or less [facility] How many standard dr inks containing alcohol do you have on a typical day? 1 or 2 [facility] Functional Status Date Assessment Result Facility 11-21-2024 Total score [AUDIT-C] 1 11/22/19 9:27 AM EDT Giovanni Persaud MD [facility] 06-01-2023 Are you deaf, or do you have serious difficulty hearing No 06/01/2023 12:43 PM Dolores Campos, TAL No [facility] 06-01-2023 Are you blind, or do you have serious difficulty seeing, even when wearing glasses No 06/01/2023 12:43 PM Dolores Campos, TAL No [facility] 06-01-2023 Do you have serious difficulty walking or climbing stairs No 06/01/2023 12:43 PM Dolores Campos, TAL No [facility] 06-01-2023 Do you have difficul ty dressing or bathing No 06/01/2023 12:43 PM Dolores Campos, TAL No [facility] 06-01-2023 Because of a physica l, mental, or emotional condition, do you have difficulty doing errands alone such as visiting a physician's office or shopping No 06/01/2023 12:43 PM Dolores Campos, TAL No [facility] Mental Status Date Assessment Result Facility 06-01-2023 Because of a physica l, mental, or emotional condition, do you have serious difficulty concentrating, remembering, or making decisions No 06/01/2023 12:43 PM Dolores Campos, TAL No [facility] Clinical Notes 02-22-2012 to 11-21-2024 Patient InstructionsGiovanni Persaud MD - 11/21/2024 9:34 AM MARTHATGiovanni Persaud MD - 11/21/2024 9:26 AM EDTTelephone Encounter - Giovanni Persaud MD - 07/27/2024 9:33 AM EDT Note Date & Type Note Facility 11-21-2024 Instructions Giovanni Persaud MD - 11/21/2024 9:40 AM EDT Screening schedule The following prevention plan is recommended: Medicare Advantage Annual Wellness Visit due on 03/27/2024 WHAT YOU CAN DO TO PREVENT FALLS Many falls can be prevented. By making some changes, you can lower your chances of falling. Four things YOU can do to prevent falls for you* and your caregiver 1. Begin a regular exercise program Exercise is one of the most important ways to lower your chances of falling. It makes you stronger and helps you feel better. Exercises that improve balance and coordination (like Levi Chi) are the most helpful. Lack of exercise leads to weakness and increases your chances of falling. Ask your doctor or health care provider about the best type of exercise program for you. 2. Have your health care provider review your medicines Have your doctor or pharmacist review all the medicines you take, even [id number] medicines. As you get older, the way medicines work in your body can change. Some medicines, or combinations of medicines, can make you sleepy or dizzy and can cause you to fall. 3. Have your vision checked Have your eyes checked by an eye doctor at least once a year. You may be wearing the wrong glasses or have a condition like glaucoma or cataracts that limits your vision. Poor vision can increase your chances of falling. 4. Make your home safer About half of all falls happen at home. To make your home safer: Remove things you can trip over (like papers, books, clothes, and shoes) from stairs and places where you walk. Remove small throw rugs or use double-sided tape to keep the rugs from slipping. Keep items you use often in cabinets you can reach easily without using a step stool. Have grab bars put in next to your toilet and in the tub or shower. Use non-slip mats in the bathtub and on shower floors. Improve the lighting in your home. As you get older, you need brighter lights to see well. Hang light-weight curtains or shades to reduce glare. Have handrails and lights put in on all staircases. Wear shoes both inside and outside the house. Avoid going barefoot or wearing slippers. For more information, contact: Centers for Disease Control and Prevention www.cdc.gov/injury * This information may not apply if you have certain medical conditions. documented in this encounter [facility] 11-21-2024 Note HNO ID: [id number] Author: GIOVANNI PERSAUD MD Service: ? Author Type: Physician Type: Progress Notes Filed: 11/21/2024 09:47 Note Text: Subjective Henrik Ma is a 84 year old male. He was doing well. His medications have not changed. His cardiology follow up was done annually. His conditions were controlled. He sees dermatology regularly as well. Review of Systems Constitutional: Negative for fatigue and unexpected weight change. Respiratory: Negative for cough and shortness of breath. Cardiovascular: Negative for chest pain and palpitations. Musculoskeletal: Negative for arthralgias. Neurological: Negative for dizziness, numbness and headaches. ACTIVE PROBLEM LIST Esophageal Reflux Essential Hypertension, Benign Allergic Rhinitis Hyperlipidemia Trigeminal Neuralgia Actinic keratosis. Impotence of Organic Origin Other Seborrheic Keratosis Cad (Coronary Artery Disease) Ckd (Chronic Kidney Disease) Stage 3, Gfr 30-59 Ml/Min ([facility]) Bph With Obstruction/Lower Urinary Tract Symptoms Social History Tobacco Use Smoking status: Never Smokeless tobacco: Never Vaping Use Vaping status: Never Used Substance Use Topics Alcohol use: Yes Alcohol/week: 0.0 - 1.0 standard drinks of alcohol Drug use: No Current Outpatient Medications Medication Sig tamsulosin (FLOMAX) 0.4 mg Take 1 capsule by mouth daily at bedtime. gabapentin (NEURONTIN) 300 mg capsule Take 1 capsule by mouth once daily for 180 days. Patient should start on August 09, 2024. fluticasone (FLONASE) 50 mcg/actuation nasal spray Use 2 Sprays in each nostril once daily. Rinse mouth after use. cyanocobalamin (VITAMIN B-12) 1,000 mcg tab Take 1,000 mcg by mouth once daily. pravastatin (PRAVACHOL) 40 mg tablet Take 1 tablet by mouth daily at bedtime. omeprazole (PRILOSEC) 20 mg capsule Take 1 capsule by mouth as needed. 1/2 hr before meal. sildenafil (REVATIO) 20 [...] by mouth once daily. Take with food. No current facility-administered medications for this visit. Objective BP 126/62 (BP Site: Left Arm, BP Position: Sitting, BP Cuff Size: Large Adult) Pulse 60 Resp 12 Ht 179.3 cm (5' 10.6) Wt 83.1 kg (183 lb 3.2 oz) BMI 25.84 kg/m? Physical Exam Constitutional: Appearance: He is not ill-appearing. HENT: Head: Normocephalic. Cardiovascular: Rate and Rhythm: Normal rate and regular rhythm. Heart sounds: No murmur heard. No gallop. Pulmonary: Breath sounds: Normal breath sounds. Musculoskeletal: General: No tenderness. Right lower leg: No edema. Left lower leg: Edema (trace edema) present. Neurological: General: No focal deficit present. Mental Status: He is alert. Latest Ref Rn 11/12/2024 Glucose 74 - 99 mg/dL 89 BUN 9 - 24 mg/dL 28 (H) Creatinine 0.73 - 1.22 mg/dL 1.22 Sodium 136 - 144 mmol/L 140 Potassium 3.7 - 5.1 mmol/L 4.3 Chloride 98 - 107 mmol/L 105 CO2 22 - 30 mmol/L 25 Anion Gap 8 - 15 mmol/L 10 Calcium 8.5 - 10.2 mg/dL 9.4 eGFR >=60 mL/min/1.73m? 58 (L) Legend: (H) High (L) Low ASSESSMENT/PLAN: 1. Medicare annual wellness visit, subsequent - ICD9: V70.0, ICD10: Z00.00 (primary diagnosis) See wellness note. 2. Encounter for screening examination for other mental health and behavioral disorders - ICD9: V79.8, ICD10: Z13.39 - ANXIETY SCREENING 3. Screening for depression - ICD9: V79.0, ICD10: Z13.31 - DEPRESSION SCREENING 4. Trigeminal neuralgia - ICD9: 350.1, ICD10: G50.0 - Controlled. Continue gabapentin. 5. Other hyperlipidemia - ICD9: 272.4, ICD10: E78.49 - Controlled. Continue pravastatin. 6. Essential hypertension, benign - ICD9: 401.1, ICD10: I10 - Controlled - Continue current medications 7. 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 Continue current medications. 8. Stage 3a chronic kidney disease (HCC) - ICD9: 585.3, ICD10: N18.31 - eGFR: 58 Improving - Counseled on avoiding NSAIDs, adequate hydration Giovanni Persaud MD [facility] 11-21-2024 History of Presen t illness Narrative Subjective Henrik Ma is a 84 year old male. He was doing well. His medications have not changed. His cardiology follow up was done annually. His conditions were controlled. He sees dermatology regularly as well. Review of Systems Constitutional: Negative for fatigue and unexpected weight change. Respiratory: Negative for cough and shortness of breath. Cardiovascular: Negative for chest pain and palpitations. Musculoskeletal: Negative for arthralgias. Neurological: Negative for dizziness, numbness and headaches. ACTIVE PROBLEM LIST Esophageal Reflux Essential Hypertension, Benign Allergic Rhinitis Hyperlipidemia Trigeminal Neuralgia Actinic keratosis. Impotence of Organic Origin Other Seborrheic Keratosis Cad (Coronary Artery Disease) Ckd (Chronic Kidney Disease) Stage 3, Gfr 30-59 Ml/Min ([facility]) Bph With Obstruction/Lower Urinary Tract Symptoms Social History Tobacco Use Smoking status: Never Smokeless tobacco: Never Vaping Use Vaping status: Never Used Substance Use Topics Alcohol use: Yes Alcohol/week: 0.0 - 1.0 standard drinks of alcohol Drug use: No Current Outpatient Medications Medication Sig tamsulosin (FLOMAX) 0.4 mg Take 1 capsule by mouth daily at bedtime. gabapentin (NEURONTIN) 300 mg capsule Take 1 capsule by mouth once daily for 180 days. Patient should start on August 09, 2024. fluticasone (FLONASE) 50 mcg/actuation nasal spray Use 2 Sprays in each nostril once daily. Rinse mouth after use. cyanocobalamin (VITAMIN B-12) 1,000 mcg tab Take 1,000 mcg by mouth once daily. pravastatin (PRAVACHOL) 40 mg tablet Take 1 tablet by mouth daily at bedtime. omeprazole (PRILOSEC) 20 mg capsule Take 1 capsule by mouth as needed. 1/2 hr before meal. sildenafil (REVATIO) 20 [...] by mouth once daily. Take with food. No current facility-administered medications for this visit. Objective BP 126/62 (BP Site: Left Arm, BP Position: Sitting, BP Cuff Size: Large Adult) Pulse 60 Resp 12 Ht 179.3 cm (5' 10.6) Wt 83.1 kg (183 lb 3.2 oz) BMI 25.84 kg/m Physical Exam Constitutional: Appearance: He is not ill-appearing. HENT: Head: Normocephalic. Cardiovascular: Rate and Rhythm: Normal rate and regular rhythm. Heart sounds: No murmur heard. No gallop. Pulmonary: Breath sounds: Normal breath sounds. Musculoskeletal: General: No tenderness. Right lower leg: No edema. Left lower leg: Edema (trace edema) present. Neurological: General: No focal deficit present. Mental Status: He is alert. Latest Ref [facility] 11/12/2024 Glucose 74 - 99 mg/dL 89 BUN 9 - 24 mg/dL 28 (H) Creatinine 0.73 - 1.22 mg/dL 1.22 Sodium 136 - 144 mmol/L 140 Potassium 3.7 - 5.1 mmol/L 4.3 Chloride 98 - 107 mmol/L 105 CO2 22 - 30 mmol/L 25 Anion Gap 8 - 15 mmol/L 10 Calcium 8.5 - 10.2 mg/dL 9.4 eGFR >=60 mL/min/1.73m 58 (L) Legend: (H) High (L) Low ASSESSMENT/PLAN: 1. Medicare annual wellness visit, subsequent - ICD9: V70.0, ICD10: Z00.00 (primary diagnosis) See wellness note. 2. Encounter for screening examination for other mental health and behavioral disorders - ICD9: V79.8, ICD10: Z13.39 - ANXIETY SCREENING 3. Screening for depression - ICD9: V79.0, ICD10: Z13.31 - DEPRESSION SCREENING 4. Trigeminal neuralgia - ICD9: 350.1, ICD10: G50.0 - Controlled. Continue gabapentin. 5. Other hyperlipidemia - ICD9: 272.4, ICD10: E78.49 - Controlled. Continue pravastatin. 6. Essential hypertension, benign - ICD9: 401.1, ICD10: I10 - Controlled - Continue current medications 7. 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 Continue current medications. 8. Stage 3a chronic kidney disease (HCC) - ICD9: 585.3, ICD10: N18.31 - eGFR: 58 Improving - Counseled on avoiding NSAIDs, adequate hydration Giovanni Persaud MD Images from the original note were not included. Henrik Ma is a 84 year old male here for a Medicare wellness visit. Medicare Health Risk Assessment General Health Good Exercise: Minutes/Day 30 min Exercise: Days/Week 4 days Alcohol: Daily Use Monthly or less Alcohol: Drinks/Day 1 or 2 Alcohol: 6 or more drinks Never Feel off balance No Concerns: Teeth/Dentures No Concerns: Sexual function No Troubled by feelings None of the above [...] Giovanni Persaud MD as PCP - General Marlys Miller APRN.[place] as Tie Loader (Internal Medicine) Outside specialists seen: Dr. Lupillo Meyer - Sound Printer Dr. Berry Falk - Optometry. Dr. Francisco Ashraf - Power Generation Technician Medical/Family history review Reviewed and updated problem list, medical/surgical/family/social history, medications, and allergies. Opioid use review Opioid Medications (last 90 days) No data to display Anxiety/Depression screening PHQ-2 Score: 0 (Lower risk for depression) LA-2 Score: 0 (Lower risk for anxiety) Recommendation: no further intervention at this time Cognitive screening Mini Cog Score: 5 Cognitive screening reviewed and No further action needed (score 3-5). Functional Observation Was the patient's Timed Up & Go test unsteady or >= 12 seconds? No Advance Care Planning Surrogate decision maker documented and/or advance directives scanned in chart Measurements BP 126/62 (BP Site: Left Arm, BP Position: Sitting, BP Cuff Size: Large Adult) Pulse 60 Resp 12 Ht 179.3 cm (5' 10.6) Wt 83.1 kg (183 lb 3.2 oz) BMI 25.84 kg/m Vision Screening: Follows with optometry/ophthalmology Right: 20/70 Left: 20/ 40 Both: 20/40 Assessment/Plan Medicare annual wellness visit, subsequent (Z00.00) - Counseled on healthy diet and regular exercise - Fall avoidance information provided - Personalized prevention plan provided Giovanni Persaud MD documented in this encounter [facility] 11-21-2024 Note HNO ID: [id number] Author: GIOVANNI PERSAUD MD Service: ? Author Type: Physician Type: Progress Notes Filed: 11/21/2024 09:47 Note Text: Henrik Ma is a 84 year old male here for a Medicare wellness visit. Medicare Health Risk Assessment General Health Good Exercise: Minutes/Day 30 min Exercise: Days/Week 4 days Alcohol: Daily Use Monthly or less Alcohol: Drinks/Day 1 or 2 Alcohol: 6 or more drinks Never Feel off balance No Concerns: Teeth/Dentures No Concerns: Sexual function No Troubled by feelings None of the above [...] Giovanni Persaud MD as PCP - General Marlys Miller APRN.[employer] [place] as Tie Loader (Internal Medicine) Outside specialists seen: Dr. Lupillo Meyer - Sound Printer Dr. Berry Falk - Optometry. Dr. Francisco Ashraf - Power Generation Technician Medical/Family history review Reviewed and updated problem list, medical/surgical/family/social history, medications, and allergies. Opioid use review Opioid Medications (last 90 days) No data to display Anxiety/Depression screening PHQ-2 Score: 0 (Lower risk for depression) LA-2 Score: 0 (Lower risk for anxiety) Recommendation: no further intervention at this time Cognitive screening Mini Cog Score: 5 Cognitive screening reviewed and No further action needed (score 3-5). Functional Observation Was the patient's Timed Up AND Go test unsteady or >= 12 seconds? No Advance Care Planning Surrogate decision maker documented and/or advance directives scanned in chart Measurements BP 126/62 (BP Site: Left Arm, BP Position: Sitting, BP Cuff Size: Large Adult) Pulse 60 Resp 12 Ht 179.3 cm (5' 10.6) Wt 83.1 kg (183 lb 3.2 oz) BMI 25.84 kg/m? Vision Screening: Follows with optometry/ophthalmology Right: 20/70 Left: 20/ 40 Both: 20/40 Assessment/Plan Medicare annual wellness visit, subsequent (Z00.00) - Counseled on healthy diet and regular exercise - Fall avoidance information provided - Personalized prevention plan provided Giovanni Persaud MD [facility] 07-27-2024 Telephone encounter Note The following approved medication requests have been transmitted electronically. Requested Prescriptions Signed Prescriptions Disp Refills gabapentin (NEURONTIN) 300 mg capsule 90 capsule 1 Sig: Take 1 capsule by mouth once daily for 180 days. Patient should start on August 09, 2024. Giovanni Persaud MD [facility] 07-27-2024 Miscellaneous Notes The following approved medication requests have been transmitted electronically. Requested Prescriptions Signed Prescriptions Disp Refills gabapentin (NEURONTIN) 300 mg capsule 90 capsule 1 Sig: Take 1 capsule by mouth once daily for 180 days. Patient should start on August 09, 2024. Giovanni Persaud MD documented in this encounter [facility] 07-25-2024 Telephone encounter Note Patient active MyChart. Patient notified via [facility] message. Tanja Harman MA [facility] 07-25-2024 Miscellaneous Notes Patient active MyChart. Patient notified via [facility] message. Tanja Harman MA PDMP website checked and validated. Gabapentin is being prescribed by a doctor in [place]. Patient should discuss this concern with that [...] has [facility] the [facility] daily[facility] for [facility] 20 days since rx only says take once daily. Patient said PCP told him some time ago he could take 2 daily. Could not find any mention in office notes. Patient said when his pain is worse he takes 2 daily. Please advise documented in this encounter [facility] 07-24-2024 Telephone encounter Note PDMP website checked and validated. Gabapentin is being prescribed by a doctor in [place]. Patient should discuss this concern with that prescribing physician. 07/24/2024 by Giovanni Persaud MD [facility] 07-24-2024 Telephone encounter Note Henrik understood to take Gabapentin as written, when he does have a flare-up of Trigeminal pain Patient can take 1 extra tablet through the day, he has been having flare-ups. Take medication at bedtime and it helps him to sleep better. Phyllis Cintron LPN [facility] 07-24-2024 Telephone encounter Note We had discussed dose reduction last year. What pain is worse? When did this pain start getting worse? [facility] 07-24-2024 Telephone encounter Note Patient calling asking to have Gabapentin 300 mg changed, he has been taking the medication twice daily. [place] will not refill his rx for another 20 days since rx only says take once daily. Patient said PCP told him some time ago he could take 2 daily. Could not find any mention in office notes. Patient said when his pain is worse he takes 2 daily. Please advise [facility] 06-12-2024 Telephone encounter Note Patient has been [...] Please advise. Thank you. Phyllis Cintron LPN. [facility] 06-12-2024 Miscellaneous Notes Patient has been identified [...] Phyllis Cintron LPN. documented in this encounter [facility] 05-23-2024 Note HNO ID: [id number] Author: GIOVANNI PERSAUD MD Service: ? Author Type: Physician Type: Progress Notes Filed: 05/23/2024 09:00 Note Text: This note was created using Recovrriter. Subjective Henrik Ma is a 83 year [...] Kidney Disease) Stage 3, Gfr 30-59 Ml/Min ([facility]) Bph With Obstruction/Lower Urinary Tract [...] current medications 2. 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 3. Stage 3a chronic kidney disease (HCC) - ICD9: 585.3, ICD10: N18.31 - eGFR: 54 Stable - Counseled on avoiding NSAIDs, adequate hydration - BASIC METABOLIC PANEL 4. Diarrhea, unspecified type - ICD9: 787.91, ICD10: R19.7 - Resolved. Giovanni Persaud MD [facility] 05-23-2024 History of Presen t illness Narrative This note was created using NoteWriter. Subjective Henrik Ma is a 83 year [...] Kidney Disease) Stage 3, Gfr 30-59 Ml/Min ([facility]) Bph With Obstruction/Lower Urinary Tract [...] current medications 2. 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 Phyllis Cintron LPN [facility] 01-01-2024 Miscellaneous Notes Lab is needing a new order for Patient. Phyllis Cintron LPN documented in this encounter [facility] 12-28-2023 Note HNO ID: [id number] Author: GIOVANNI PERSAUD MD Service: ? Author Type: Physician Type: Progress Notes Filed: 12/28/2023 14:30 Note Text: This note was created using Recovrriter. Subjective Henrik Ma is a 83 year [...] Kidney Disease) Stage 3, Gfr 30-59 Ml/Min ([facility]) Bph With Obstruction/Lower Urinary Tract [...] PANEL - FECAL LACTOFERRIN/LEUKOCYTES Giovanni Persaud MD [facility] 12-28-2023 History of Presen t illness Narrative This note was created using NoteWriter. Subjective Henrik Ma is a 83 year [...] Giovanni Persaud MD documented in this encounter [facility] 11-21-2023 Instructions Giovanni Persaud MD - 11/21/2023 9:23 AM EDT Tetanus booster (Tdap) at pharmacy. Covid booster when available. documented in this encounter [facility] 11-21-2023 History of Presen t illness [...] Outside specialists seen: Dr. Lupillo Meyer - Sound Printer Dr. Berry Falk - Optometry. Dr. Francisco Ashraf - Power Generation Technician Medical/Family history review Reviewed and updated problem [...] plan provided This note was created using [employer]. Subjective Henrik Ma is a 83 year [...] Kidney Disease) Stage 3, Gfr 30-59 Ml/Min ([facility]) Bph With Obstruction/Lower Urinary Tract [...] is alert. Gait: Gait normal. Latest Ref [facility] 11/14/2023 Protein, Total 6.3 - 8.0 g/dL [...] was discussed. 7. 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 Thank you. Thi Gregory MA. [facility] 08-28-2023 Miscellaneous Notes Patient has been identified [...] Thi Gregory MA. documented in this encounter [facility] 08-14-2023 Telephone encounter Note Requested Prescriptions Pending Prescriptions Disp Refills tamsulosin (FLOMAX) 0.4 mg 90 capsule 3 Sig: Take 1 capsule by mouth daily at bedtime. Date of last office visit in primary care: 05/25/2023 Date of next office visit in primary care: 11/21/2023 Please advise. Thank you. Son Biggs MA. [facility] 08-14-2023 Miscellaneous Notes Requested Prescriptions Pending Prescriptions Disp Refills tamsulosin (FLOMAX) 0.4 mg 90 capsule 3 Sig: Take 1 capsule by mouth daily at bedtime. Date of last office visit in primary care: 05/25/2023 Date of next office visit in primary care: 11/21/2023 Please advise. Thank you. Son Biggs MA. documented in this encounter [facility] 06-19-2023 Note HNO ID: [id number] Author: JAUN LEBLANC MD Service: ? 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 SIGNATURE: Jaun Leblanc MD PATIENT NAME: Henrik Ma DATE: June 18, 2023 TIME: 11:45 AM PAGER/CONTACT #: [facility] 06-19-2023 History of Presen t illness Narrative [...] kidney disease) stage 3, GFR 30-59 ml/min ([facility]) 08/04/2016 Esophageal reflux 04/05/2005 Essential hypertension, benign 04/05/2005 Hemangioma of skin and subcutaneous tissue Hydronephrosis 06/30/2022 Mild left Hydronephrosis of left kidney 07/11/2022 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 Hi, DPM Trigeminal neuralgia Ulcerative (chronic) proctitis ([facility]) 08/2003 Unspecified cardiovascular disease mild CAD PAST [...] This office note has been created using [employer], a speech recognition software program, and may contain errors including punctuation, grammar, spelling, gender, and inappropriate words or phrases that pertain to the system. SIGNATURE: Jaun Leblanc MD PATIENT NAME: Henrik Ma DATE: June 18, 2023 TIME: 11:45 AM PAGER/CONTACT #: documented in this encounter [facility] 05-31-2023 Note HNO ID: [id number] Author: AARON MCKEON DO Service: Hospital Medicine [...] kidney disease) stage 3, GFR 30-59 ml/min ([facility]) (POA: Yes) Assessment AND Plan: avoid nephrotoxins, encourage continued hydration BPH Continue tamsulosin Disposition: General Surgery indicated needing 24 hours of antibiotics postop and can be home if tolerating diet and has bowel movement likely tomorrow Medication and Non-Pharmacologic VTE Prophylaxis/Anticoagulants 05/30/23 0245 activity - mobilize patient (hi,oh) VTE Prophylaxis: VTE prophylaxis appropriate SIGNATURE: Aaron Mckeon DO PATIENT NAME: Henrik Ma DATE: May 31, 2023 TIME: 10:31 AM [facility] 05-30-2023 Note HNO ID: [id number] Author: LAINE ALVA AA Service: ? Author Type: Tower Supervisor Type: Anesthesia Procedure Notes Filed: 05/30/2023 18:56 Note Text: ANESTHESIOLOGY PROCEDURE NOTE Airway General Information Procedure Start Time/Medication Administration: 05/30/2023 6:44 PM Procedure End Time: 05/30/2023 6:44 PM Patient location during procedure: OR Timeout Performed Pre-procedure: timeout performed Consent Obtained: Yes Patient identity confirmed: arm band, care swat team member and patient Staffing Anesthesiologist: Jaspreet Hughes MD CAA: Laine Alva AA CAA Student: Garland Honeycutt AA Student Performed by: anesthesiologist, CAA student and CAA Indications and Patient Condition Indications for airway management: anesthesia Preoxygenated: yes anesthesia circuit Patient position: sniffing Method: asleep Cricoid Pressure: No Manual In-Line Stabilization: No Difficult Mask: No Final Airway Details Final airway type: endotracheal airway Final Endotracheal Airway: ETT Cuffed: yes Successful intubation technique: video laryngoscopy Devices used: InSite Wireless Endotracheal tube insertion site: oral Blade: William [...] May 30, 2023 TIME: 6:55 PM CSN: [id number] [facility] 05-30-2023 Note HNO ID: [id number] Author: MUNIRA CABRALES RT(R) Service: ? Author [...] PATIENT PRESENTS WITH AN IMPLANTABLE OR ATTACHED BIODIESEL DIVISION MANAGER: No CREATININE: Creatinine Date Value Ref Range [...] safety can be found using this link: [email or web address]%20Nuclear%20Medici [email or web address] SIGNATURE: RT Daisy(R) PATIENT NAME: Henrik Ma DATE: May 30, 2023 TIME: 3:37 PM PAGER/CONTACT #: [facility] 05-29-2023 Discharge summary Note Date/Time May 29, 2023 9:49am [facility] Medical Records Department [address] [place] [address] Emergency Department Summary 05/29/23 MR#: [id number] Acct: [id number] Name: HENRIK MA Rep #:[id number] : [id number] From: Best Orona MD PCP: Dr. Giovanni Persaud MD Status:R ER Location: ED HPI HPI - GI [...] was not as bad.) [facility] Ill[facility]: [facility] Medical History Atherosclerosis of coronary artery of 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 pectoris Essential (primary) hypertension [...] 88.4 H Lymph % (Auto) 3.4 L [place] % (Auto) 6.9 Eos % (Auto) 0.0 [...] Sl. Cloudy Urine pH 5.0 Ur Specific [place] 1.020 Urine Protein 30 H Urine Glucose [...] by radiologist. Management Discussion w/another healthcare provider: [facility] (Case was discussed with Dr. Wright. She [...] week. Patient states she has been at [facility] in the past and had stents placed for his heart. will contact their transfer line. Since patient also has an infiltrate in the right lower lobe will order azithromycin for atypical coverage. Spoke with Antonieta at the [facility] transfer line. She states she will reach out to [facility]. Patient was accepted by Dr. Rosales at [facility]. Patient and were informed that there were no beds available at [facility] and that he would be transferred to [facility] which is affiliated with the [facility]. Discharge Plan Triage Chief Complaint: Abd Pain ED Provider: Best Orona Dx/Rx/DC Orders Clinical Impression: Acute acalculous cholecystitis, Atherosclerosis of coronary artery of 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 pectoris, HLD (hyperlipidemia), Essential (primary) hypertension, Infiltrate of lower lobe of right lung present on imaging study, intermission coordinator current use of antithrombotics/antiplatelets Prescriptions: No Action [...] your Primary Care Provider. Call [facility] ([phone]) or report to the closest Emergency Room. Call 911 if necessary. 05/29/23 1521 <Electronically signed by Best Orona MD> Cosigner Signature (if applicable): CC: Dr. Giovanni Persaud MD ~ Signed ADDENDUM by Dr. Ben Wright DO on 05/29/23 at 2100 Patient signed out to me pending transfer to [facility]. It has been over 6hours, I will [...] potential transfer, however we receive callback from [facility] reportinga bed will be made available. 05/29/232143<Electronically signed by Ben Michel> Cosigner Signature (if applicable): cc: Dr. Giovanni Persaud MD ~* Signed [facility] Work Phone: 1(358) 240-393203-04-2024 History of Past illness Narrative* Problem Noted Date Diagnosed Date Resolved Date Acute cholecystitis 05/29/2023 06/01/19 24 Obstructive uropathy 08/01/2022 024 Hydronephrosis of left kidney 07/11/2022 05/25/2023 Subluxation of tarsometatars al joint of right foot 05/31/2017 05/25/2023 Overview: Dr. Hi, DPM Irritated//Inflamed Seborrheic Keratosis 02/22/2012 01/22/2014 Actinic [...] of this encounter (statuses as of 06/19/2023) [facility]02-29-2024 History of Present illness Narrative* Giovanni Persaud [...] Kidney Disease) Stage 3, Gfr 30-59 Ml/Min ([facility]) Bph With Obstruction/Lower Urinary Tract [...] Controlled Giovanni Persaud MD documented in this encounterW[facility]umed[facility]12-04-2023 Miscellaneous Notes* Telephone Encounter - Son Biggs Ma - 02/27/2023 8:56 AM EST KYUNG: 11/23/2022 Last refill: 01/17/2022 QTY: 12 Refills: 2 documented in this encounterW[facility]umed[facility]11-05-2023 Evaluation note* Diagnosis Stage 3a chronic kidney disease (HCC) documented in this encounter [facility]11-05-2023 Reason for referral (narrative)* Diagnostic Procedure Only (Routine) - Closed Specialty Diagnoses / Procedures Referred By Contac t Referred To Contact US IMAGING Diagnoses Stage 3a chronic kidney disease (HCC) Procedures US KIDNEY/BLADDER US RETROPERITONEAL REAL TIME W/IMAGE COMPLETE Giovanni Persaud MD [address] [place] [address] [place] [id number] Referral ID Status Reason Start Date Expiration Date V isits Requested Visits Authorized [id number] Closed Auto-Generate d Referral 06/09/2022 07/09/2023 1 1 [facility]10-30-2023 Miscellaneous Notes* Telephone Encounter - Lilliam Sandhu OCCA - 01/23/2023 10:42 AM EDT Updated in immunization history. GAMA Chapman documented in this encounterWvumedicine [facility]08-30-2023 History of Present illness Narrative* Giovanni Persaud MD - 11/23/2022 8:47 AM EDT This note was created using Recovrriter. Subjective Henrik Ma is a 82 year [...] Kidney Disease) Stage 3, Gfr 30-59 Ml/Min ([facility]) Subluxation of Tarsometatarsal Joint of [...] - Controlled. 5. 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 Meyer - Sound Printer Dr. Berry Falk - Optometry. Dr. Ashraf - Power Generation Technician Dr. Esteban- ENT (nosebleed). Medical/Family history review [...] COVID-19 - Depression screening documented in this encounterWvumed[facility]07-31-2023 Miscellaneous Notes* Telephone Encounter - Son Biggs [...] pharmacy. Son Biggs Ma documented in this encounterWvumedicine [facility]05-08-2023 History of Past illness Narrative* Problem Noted Date Diagnosed Date Resolved Date Obstructive uropathy 08/01/2022 024 Hydronephrosis of left kidney 07/11/2022 05/25/2023 Subluxation of tarsometatars al joint of right foot 05/31/2017 05/25/2023 Overview: Dr. Hi, DPM Irritated//Inflamed Seborrheic Keratosis 02/22/2012 01/22/2014 Actinic [...] of this encounter (statuses as of 05/25/2023) [facility]05-08-2023 Miscellaneous Notes* Telephone Encounter - Son Biggs [...] pharmacy. Son Biggs Ma documented in this encounterWvumedicine [facility]04-06-2023 History of Present illness Narrative* Karin Farmer [...] 30, 2022 9:24 AM documented in this encounterWvumedicine [facility]03-16-2023 History of Present illness Narrative* Giovanni Persaud MD - 06/09/2022 11:55 AM EDT This note was created using Recovrriter. Subjective Henrik Ma is a 82 year [...] Kidney Disease) Stage 3, Gfr 30-59 Ml/Min ([facility]) Subluxation of Tarsometatarsal Joint of [...] <130/80 Giovanni Persaud MD documented in this encounterWvumedicine [facility]03-16-2023 Evaluation note* Diagnosis Stage 3a chronic kidney disease (HCC)- Primary Essential hypertension, benign documented in this encounter [facility]03-16-2023 Reason for referral (narrative)* Diagnostic Procedure Only (Routine) - Pending Review Specialty Diagnoses / Procedures Referred By Qian wren Referred To Contact US IMAGING Diagnoses Stage 3a chronic kidney disease (HCC) Procedures US KIDNEY/BLADDER US RETROPERITONEAL REAL TIME W/IMAGE COMPLETE Giovanni Persaud MD [address] [place] [address] Us Imaging Referral ID Status Reason Start Date Expiration Date Visits Requested Visits Authorized [id number] Pending Review Auto-Generat ed Referral 06/09/2022 07/09/2023 1 1 [facility]03-06-2023 Miscellaneous Notes* Telephone Encounter - Son Biggs Ma - 05/30/2022 2:08 PM EST KYUNG: 05/17/2022 omeprazole Last refill: 08/24/2021 QTY: 90 Refills: 1 flonase Last refill: 07/05/2021 QTY: 1 Refills: 11 documented in this encounterWvumedicine [facility]02-21-2023 Instructions* Patient Instructions* Giovanni Persaud MD - 05/17/2022 8:55 AM EST NON FASTING BLOOD WORK 2 DAYS BEFORE THIS MONTH'S RECHECK. STOP hydrochlorothiazide. documented in this encounterWvumedicine [facility]02-21-2023 History of Present illness Narrative* Giovanni Persaud MD - 05/17/2022 8:43 AM EST This note was created using [employer]. Subjective Henrik Ma is a 81 year old male. He was doing reasonably well. He was less steady on his feet and felt this was from gabapentin. However, neuralgia was still active and bothersome so we agreeddose reduction was not an option at this time. He had a negative stress test last fall. His hypertension was controlled. He exercised by walking at [employer] regularly with some lightweights at home. Review of Systems Constitutional: Negative. Respiratory: Negative. Cardiovascular: Negative. Gastrointestinal: Negative. Musculoskeletal: Negative. Neurological: Negative. ACTIVE PROBLEM LIST Esophageal Reflux Essential Hypertension, Benign Allergic Rhinitis Hyperlipidemia Trigeminal Neuralgia Actinic keratosis. Impotence of Organic Origin Other Seborrheic Keratosis Cad (Coronary Artery Disease) Ckd (Chronic Kidney Disease) Stage 3, Gfr 30-59 Ml/Min ([facility]) Subluxation of Tarsometatarsal Joint of [...] BASIC Giovanni Persaud MD documented in this encounterWvumedicine [facility]02-21-2023 Evaluation note* Diagnosis Stage 3a chronic kidney disease (HCC)- Primary Essential hypertension, benign Other hyperlipidemia documented in this encounter [facility]08-16-2022 History of Present illness Narrative* Marlys Older, TOURS CAPTAIN.CINDER BLOCK MASON - 11/09/2021 8:22 AM EDT CC: Patient [...] kidney disease) stage 3, GFR 30-59 ml/min ([facility]) 08/04/2016 Esophageal reflux 04/05/2005 Essential hypertension, benign 04/05/2005 Hemangioma of skin and subcutaneous tissue Malignant melanoma of skin of upper limb, including shoulder ([facility]) 1987 left upper arm Other and unspecified hyperlipidemia 04/05/2005 Subluxation of tarsometatarsal joint of right foot 05/31/2017 Dr. 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 Meyer - Sound Printer Dr. Falk - Opthalmologist Dr. Ashraf - Power Generation Technician End of Live Planning discussed including patients [...] year Marlys Beck APRN.CNP documented in this encounterW[facility]umed[facility]08-08-2022 Evaluation note* Diagnosis Stage 3a chronic kidney disease (HCC)- Primary documented in this encounter [facility]08-01-2022 Miscellaneous Notes* Telephone Encounter - Phyllis Cintron [...] you. Phyllis Cintron LPN documented in this encounterCleveland [id number] Miscellaneous Notes* Telephone Encounter - Phyllis Cintron [...] you. Phyllis Cintron LPN documented in this encounterWvumedicine [facility]05-17-2022 Miscellaneous Notes* Telephone Encounter - Phyllis Cintron [...] you. Phyllis Cintron LPN documented in this encounterWvumedicine [facility]05-10-2022 Miscellaneous Notes* Telephone Encounter - Phyllis Cintron [...] you. Phyllis Cintron LPN documented in this encounterWvumedicine [facility]01-29-2013 Evaluation note* Diagnosis Onset Date Resolution Status Essential (primary) hypertension chronic HLD (hyperlipidemia) chronic History of coronary artery stent placement March resolved [facility] Work Phone: 1(988) 285-854501-29-2013 Evaluation note* Diagnosis Onset Date Resolution Status Admit Date Essential (primary) hypertension chronic September 03, 2024 11:16am HLD (hyperlipidemia) chronic September 03, 2024 11:16am History of coronary artery stent placement April 24, 2012 resolved September 03 11:16am [facility] Work Phone: 1(942) 690-428711-28-2012 History of Past illness Narrative* Problem Noted [...] of this encounter (statuses as of 08/04/2021) [facility]11[facility]28[facility] History of Past illness Narrative* Problem Noted [...] of this encounter (statuses as of 08/11/2021) [facility]11[facility] History of Past illness Narrative* Problem Noted [...] of this encounter (statuses as of 08/24/2021) [facility] History of Past illness Narrative* Problem Noted [...] of this encounter (statuses as of 10/25/2021) [facility] History of Past illness Narrative* Problem Noted [...] of this encounter (statuses as of 11/01/2021) [facility] History of Past illness Narrative* Problem Noted [...] of this encounter (statuses as of 11/09/2021) [facility] History of Past illness Narrative* Problem Noted [...] of this encounter (statuses as of 05/17/2022) [facility] History of Past illness Narrative* Problem Noted [...] of this encounter (statuses as of 05/31/2022) [facility] History of Past illness Narrative* Problem Noted [...] of this encounter (statuses as of 06/09/2022) [facility] History of Past illness Narrative* Problem Noted [...] of this encounter (statuses as of 08/01/2022) [facility] History of Past illness Narrative* Problem Noted [...] of this encounter (statuses as of 10/25/2022) [facility] History of Past illness Narrative* Problem Noted [...] of this encounter (statuses as of 11/23/2022) [facility] of Past illness Narrative* Problem Noted [...] of this encounter (statuses as of 01/03/2023) [facility] of Past illness Narrative* Problem Noted [...] of this encounter (statuses as of 01/23/2023) [facility] of Past illness Narrative* Problem Noted [...] of this encounter (statuses as of 01/29/2023) [facility] of Past illness Narrative* Problem Noted [...] of this encounter (statuses as of 02/08/2023) [facility] History of Past illness Narrative* Problem Noted [...] of this encounter (statuses as of 02/27/2023) [facility] [place] noteNo assessment information availableWHolmes [facility] Work Phone: Evaluation note* Diagnosis BPH with obstruction/lower urinary tract symptoms Hypertrophy of prostate with urinary obstruction and other lower urinary tract symptoms (LUTS) documented in this encounter [facility] [place] [facility]* Diagnosis Impotence of organic origin documented in this encounter [facility] [place] [facility]* Diagnosis Gastroesophageal reflux disease, unspecified whether esophagitis present documented in this encounter [facility] [place] [facility]* Diagnosis Medicare annual wellness visit, subsequent- Primary Routine general medical examination at a health care facility Essential hypertension, benign Trigeminal neuralgia Stage 3a chronic kidney disease (HCC) documented in this encounter [facility] [place] [facility]* Diagnosis Gastroesophageal reflux disease, unspecified whether esophagitis present documented in this encounter [facility] [place] [facility]* Diagnosis BPH with obstruction/lower urinary tract symptoms Hypertrophy of prostate with urinary obstruction and other lower urinary tract symptoms (LUTS) documented in this encounter [facility] [place] [facility]* Diagnosis Medicare annual wellness visit, subsequent- Primary Routine general medical examination at a health care facility Trigeminal neuralgia Essential hypertension, benign Other hyperlipidemia 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, unspecified vessel or lesion type Stage 3a chronic kidney disease (HCC) BPH with obstruction/lower urinary tract symptoms Hypertrophy of prostate with urinary obstruction and other lower urinary tract symptoms (LUTS) documented in this encounter [facility] [place] [facility]* Diagnosis Impotence of organic origin documented in this encounter [facility] [place] [facility]* Diagnosis Stage 3a chronic kidney disease (HCC)- Primary Other hyperlipidemia Essential hypertension, benign documented in this encounter [facility]* Diagnosis S/P laparoscopic cholecystectomy- Primary Other postprocedural status documented in this encounter [facility] [place] [facility]* Diagnosis BPH with obstruction/lower urinary tract symptoms Hypertrophy of prostate with urinary obstruction and other lower urinary tract symptoms (LUTS) documented in this encounter [facility] [place] [facility]* Diagnosis Gastroesophageal reflux disease, unspecified whether esophagitis present documented in this encounter [facility] [place] [facility]* Diagnosis Medicare annual wellness visit, subsequent- Primary Routine general medical examination at a health care facility Encounter for screening examination for other mental health and behavioral disorders Screening for depression Essential hypertension, benign Other hyperlipidemia Trigeminal neuralgia 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, unspecified vessel or lesion type Need for vaccination Need for prophylactic vaccination and inoculation against unspecified single disease Anemia, unspecified type Stage 3a chronic kidney disease (HCC) [facility] [place] [facility]* Diagnosis Diarrhea, unspecified type- Primary documented in this encounter [facility]* Diagnosis Stage 3a chronic kidney disease (HCC)- Primary documented in this encounter [facility] [place] [facility]* Diagnosis Diarrhea, unspecified type- Primary documented in this encounter [facility] [place] [facility]* Diagnosis Essential hypertension, benign- Primary 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, unspecified vessel or lesion type Stage 3a chronic kidney disease (HCC) Diarrhea, unspecified type documented in this encounter [facility] [place] [facility]* Diagnosis Trigeminal neuralgia [facility] Diagnosis Trigeminal neuralgia [facility]* Diagnosis Trigeminal neuralgia documented in this encounter [facility] [place] [facility]* Diagnosis Medicare annual wellness visit, subsequent- Primary Routine general medical examination at a health care facility Encounter for screening examination for other mental health and behavioral disorders Screening for depression Trigeminal neuralgia Other hyperlipidemia Essential hypertension, benign 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 Please take Tylenol (2 pills, 650 mg), as needed for pain and fever control. Please return if bleeding is uncontrolled. Please follow-up with Dr. Horton. A local custody officer. His information has been provided. I spoke [...] care physician for further outpatient evaluation and management.[facility] Work Phone: Reason for referral (narrative)No reason for referral information availableWHolmes County [facility] Work Phone: Chief Complaint and Reason for [...] of coronary artery stent placement Chief Complaint Admit Date INT LABS August 27, 2024 6:40a m Chief Complaint Admit Date INT LABS August 27, 2024 6:40a m 1 Y FU/MOVED FROM [facility] September 03, 2024 11 :16am Reason for Visit Admit Date Essential (primary) hypertension September 032024 11:16am HLD (hyperlipidemia) September 03, 2024 11: 16am History of coronary artery stent placeme nt September 03, 2024 11:16am Advance Directives Documents on File Type Date 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 Advance Directive(s) 07/30/2015 11:53 AM Date Activated Date Inactivated Comments 05/30/2023 2:34 AM 06/01/2023 4:31 PM Question Answer Comments Full Code Order Discussed With: Patient Advance Directive Response Recorded Date/ Time Living Will Yes January 28 9:52am Power of General Warehouse Worker Yes January 28, 2017 9:52am Documents on File Type Date Recorded 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 Advance Directive(s) 07/30/2015 11:53 AM Advance Directive Response Recorded Date/ Time Name of Medical Power of General Warehouse Worker winsome joyner ary August 08, 2022 4:19pm Living Will Yes August 08, 2022 4 :19pm Power of General Warehouse Worker Yes August 08, 2022 4:19pm Advance Directive Response Recorded Date/ Time Living Will Yes May 29, 2023 8:36am Power of General Warehouse Worker Yes May 28 8:36am Name of Medical Power of General Warehouse Worker May 29, 2023 8:36am Advance Directive Response Recorded Date/ Time Name of Medical Power of General Warehouse Worker May 29, 2023 9:36am Living Will Yes May 29, 2023 9:36am Power of General Warehouse Worker Yes May 28 9:36am Advance Directive Response Recorded Date/ Time Living Will Yes May 29, 2023 9:36am Do you have a Healthcare Power of General Warehouse Worker? Yes May 29, 2023 9:36am Summary Purpose Family History No Family [...] or prosecute any alcohol or drug abuse patient.[facility] HospitalIn the event this information is protected by the Federal Confidentiality of Alcohol and Drug Abuse Patient Records regulations: The Federal rules restrict any use of the information to criminally investigate or prosecute any alcohol or drug abuse patient.[facility] [facility]In the event this information is protected by the Federal Confidentiality of Alcohol and Drug Abuse Patient Records regulations: The Federal rules restrict any use of the information to criminally investigate or prosecute any alcohol or drug abuse patient.[facility] HospitalIn the event this information is protected by the Federal Confidentiality of Alcohol and Drug Abuse Patient Records regulations: The Federal rules restrict any use of the information to criminally investigate or prosecute any alcohol or drug abuse patient.[facility] HospitalIn the event this information is protected by the Federal Confidentiality of Alcohol and Drug Abuse Patient Records regulations: The Federal rules restrict any use of the information to criminally investigate or prosecute any alcohol or drug abuse patient.[facility] HospitalIn the event this information is protected by the Federal Confidentiality of Alcohol and Drug Abuse Patient Records regulations: The Federal rules restrict any use of the information to criminally investigate or prosecute any alcohol or drug abuse patient.[facility] HospitalIn the event this information is protected by the Federal Confidentiality of Alcohol and Drug Abuse Patient Records regulations: The Federal rules restrict any use of the information to criminally investigate or prosecute any alcohol or drug abuse patient.[facility] HospitalIn the event this information is protected by the Federal Confidentiality of Alcohol and Drug Abuse Patient Records regulations: The Federal rules restrict any use of the information to criminally investigate or prosecute any alcohol or drug abuse patient.[facility] HospitalIn the event this information is protected by the Federal Confidentiality of Alcohol and Drug Abuse Patient Records regulations: The Federal rules restrict any use of the information to criminally investigate or prosecute any alcohol or drug abuse patient.[facility] HospitalIn the event this information is protected by the Federal Confidentiality of Alcohol and Drug Abuse Patient Records regulations: The Federal rules restrict any use of the information to criminally investigate or prosecute any alcohol or drug abuse patient.[facility] HospitalIn the event this information is protected by the Federal Confidentiality of Alcohol and Drug Abuse Patient Records regulations: The Federal rules restrict any use of the information to criminally investigate or prosecute any alcohol or drug abuse patient.[facility] HospitalIn the event this information is protected by the Federal Confidentiality of Alcohol and Drug Abuse Patient Records regulations: The Federal rules restrict any use of the information to criminally investigate or prosecute any alcohol or drug abuse patient.[facility] HospitalIn the event this information is protected by the Federal Confidentiality of Alcohol and Drug Abuse Patient Records regulations: The Federal rules restrict any use of the information to criminally investigate or prosecute any alcohol or drug abuse patient.[facility] HospitalIn the event this information is protected by the Federal Confidentiality of Alcohol and Drug Abuse Patient Records regulations: The Federal rules restrict any use of the information to criminally investigate or prosecute any alcohol or drug abuse patient.[facility] HospitalIn the event this information is protected by the Federal Confidentiality of Alcohol and Drug Abuse Patient Records regulations: The Federal rules restrict any use of the information to criminally investigate or prosecute any alcohol or drug abuse patient.[facility] HospitalIn the event this information is protected by the Federal Confidentiality of Alcohol and Drug Abuse Patient Records regulations: The Federal rules restrict any use of the information to criminally investigate or prosecute any alcohol or drug abuse patient.[facility] HospitalIn the event this information is protected by the Federal Confidentiality of Alcohol and Drug Abuse Patient Records regulations: The Federal rules restrict any use of the information to criminally investigate or prosecute any alcohol or drug abuse patient.[facility] HospitalIn the event this information is protected by the Federal Confidentiality of Alcohol and Drug Abuse Patient Records regulations: The Federal rules restrict any use of the information to criminally investigate or prosecute any alcohol or drug abuse patient.[facility] HospitalIn the event this information is protected by the Federal Confidentiality of Alcohol and Drug Abuse Patient Records regulations: The Federal rules restrict any use of the information to criminally investigate or prosecute any alcohol or drug abuse patient.[facility] HospitalIn the event this information is protected by the Federal Confidentiality of Alcohol and Drug Abuse Patient Records regulations: The Federal rules restrict any use of the information to criminally investigate or prosecute any alcohol or drug abuse patient.[facility] HospitalIn the event this information is protected by the Federal Confidentiality of Alcohol and Drug Abuse Patient Records regulations: The Federal rules restrict any use of the information to criminally investigate or prosecute any alcohol or drug abuse patient.[facility] HospitalIn the event this information is protected by the Federal Confidentiality of Alcohol and Drug Abuse Patient Records regulations: The Federal rules restrict any use of the information to criminally investigate or prosecute any alcohol or drug abuse patient.[facility] HospitalIn the event this information is protected by the Federal Confidentiality of Alcohol and Drug Abuse Patient Records regulations: The Federal rules restrict any use of the information to criminally investigate or prosecute any alcohol or drug abuse patient.[facility] HospitalIn the event this information is protected by the Federal Confidentiality of Alcohol and Drug Abuse Patient Records regulations: The Federal rules restrict any use of the information to criminally investigate or prosecute any alcohol or drug abuse patient.[facility] HospitalIn the event this information is protected by the Federal Confidentiality of Alcohol and Drug Abuse Patient Records regulations: The Federal rules restrict any use of the information to criminally investigate or prosecute any alcohol or drug abuse patient.[facility] HospitalIn the event this information is protected by the Federal Confidentiality of Alcohol and Drug Abuse Patient Records regulations: The Federal rules restrict any use of the information to criminally investigate or prosecute any alcohol or drug abuse patient.[facility] HospitalIn the event this information is protected by the Federal Confidentiality of Alcohol and Drug Abuse Patient Records regulations: The Federal rules restrict any use of the information to criminally investigate or prosecute any alcohol or drug abuse patient.[facility] HospitalIn the event this information is protected by the Federal Confidentiality of Alcohol and Drug Abuse Patient Records regulations: The Federal rules restrict any use of the information to criminally investigate or prosecute any alcohol or drug abuse patient.[facility] HospitalIn the event this information is protected by the Federal Confidentiality of Alcohol and Drug Abuse Patient Records regulations: The Federal rules restrict any use of the information to criminally investigate or prosecute any alcohol or drug abuse patient.[facility] HospitalIn the event this information is protected by the Federal Confidentiality of Alcohol and Drug Abuse Patient Records regulations: The Federal rules restrict any use of the information to criminally investigate or prosecute any alcohol or drug abuse patient.[facility] HospitalIn the event this information is protected by the Federal Confidentiality of Alcohol and Drug Abuse Patient Records regulations: The Federal rules restrict any use of the information to criminally investigate or prosecute any alcohol or drug abuse patient.[facility] HospitalIn the event this information is protected by the Federal Confidentiality of Alcohol and Drug Abuse Patient Records regulations: The Federal rules restrict any use of the information to criminally investigate or prosecute any alcohol or drug abuse patient.[facility] HospitalIn the event this information is protected by the Federal Confidentiality of Alcohol and Drug Abuse Patient Records regulations: The Federal rules restrict any use of the information to criminally investigate or prosecute any alcohol or drug abuse patient.[facility] HospitalIn the event this information is protected by the Federal Confidentiality of Alcohol and Drug Abuse Patient Records regulations: The Federal rules restrict any use of the information to criminally investigate or prosecute any alcohol or drug abuse patient.[facility] Care Teams (unrecognized sec tion and content) Consumer Relations Complaint Clerk Relationship Specialty Start Date End Date Giovanni Persaud MD [address] [place] [address] PCP - General 03/07/02 Consumer Relations Complaint Clerk Relationship Specialty Start Date End Date Giovanni Persaud MD [address] [place] [address] PCP - General 03/07/02 Consumer Relations Complaint Clerk Relationship Specialty Start Date End Date Giovanni Persaud MD [address] [place] [address] PCP - General 03/07/02 Consumer Relations Complaint Clerk Relationship Specialty Start Date End Date Giovanni Persaud MD [address] [place] [address] PCP - General 03/07/02 Consumer Relations Complaint Clerk Relationship Specialty Start Date End Date Giovanni Persaud MD [address] [place] [address] PCP - General 03/07/02 Consumer Relations Complaint Clerk Relationship Specialty Start Date End Date Giovanni Persaud MD [address] [place] [address] PCP - General 03/07/02 Consumer Relations Complaint Clerk Relationship Specialty Start Date End Date Giovanni Persaud MD [address] [place] [address] PCP - General 03/07/02 Consumer Relations Complaint Clerk Relationship Specialty Start Date End Date Giovanni Persaud MD [address] [place] [address] PCP - General 03/07/02 Consumer Relations Complaint Clerk Relationship Specialty Start Date End Date Giovanni Persaud MD [address] [place] [address] PCP - General 03/07/02 Team Status: Active [...] Dr. Nestor Jackson DO Emergency Provider Active Consumer Relations Complaint Clerk Relationship Specialty Start Date End Date Giovanni Persaud MD [address] [place] [address] PCP - General 03/07/02 Consumer Relations Complaint Clerk Relationship Specialty Start Date End Date Giovanni Persaud MD [address] [place] [address] PCP - General 03/07/02 Consumer Relations Complaint Clerk Relationship Specialty Start Date End Date Giovanni Persaud MD [address] [place] [address] PCP - General 03/07/02 Consumer Relations Complaint Clerk Relationship Specialty Start Date End Date Giovanni Persaud MD [address] [place] [address] PCP - General 03/07/02 Consumer Relations Complaint Clerk Relationship Specialty Start Date End Date Giovanni Persaud MD [address] [place] [address] PCP - General 03/07/02 Consumer Relations Complaint Clerk Relationship Specialty Start Date End Date Giovanni Persaud MD [address] [place] [address] PCP - General 03/07/02 Consumer Relations Complaint Clerk Relationship Specialty Start Date End Date Giovanni Persaud MD [address] [place] [address] PCP - General 03/07/02 Consumer Relations Complaint Clerk Relationship Specialty Start Date End Date Giovanni Persaud MD [address] [place] [address] PCP - General 03/07/02 Team Status: Inactive [...] MD Attending Provider, Referring Pro vider Active Consumer Relations Complaint Clerk Relationship Specialty Start Date End Date Giovanni Persaud MD [address] [place] [address] PCP - General 03/07/02 Consumer Relations Complaint Clerk Relationship Specialty Start Date End Date Giovanni Persaud MD [address] [place] [address] PCP - General 03/07/02 Consumer Relations Complaint Clerk Relationship Specialty Start Date End Date Giovanni Persaud MD [address] [place] [address] PCP - General 03/07/02 Consumer Relations Complaint Clerk Relationship Specialty Start Date End Date Giovanni Persaud MD [address] [place] [address] PCP - General 03/07/02 Consumer Relations Complaint Clerk Relationship Specialty Start Date End Date Giovanni Persaud MD [address] [place] [address] PCP - General 03/07/02 Consumer Relations Complaint Clerk Relationship Specialty Start Date End Date Giovanni Persaud MD [address] [place] [address] PCP - General 03/07/02 Marlys Miller, TOURS CAPTAIN.C[employer]ER [employer]ON [address] [place] [address] Tie Loader Internal Medicine 03/04/24 Consumer Relations Complaint Clerk Relationship Specialty Start Date End Date Giovanni Persaud MD [address] [place] [address] PCP - General 03/07/02 Marlys Miller, TOURS CAPTAIN.[employer]ON [address] [place] [address] Tie Loader Internal Medicine 03/04/24 Consumer Relations Complaint Clerk Relationship Specialty Start Date End Date Giovanni Persaud MD [address] [place] [address] PCP - General 03/07/02 Marlys Miller, TOURS CAPTAIN.[employer]ER [employer]ON [address] [place] [address] Tie Loader Internal Medicine 03/04/24 Consumer Relations Complaint Clerk Relationship Specialty Start Date End Date Giovanni Persaud MD [address] [facility] [place], [place] [address] PCP - General 03/07/02 Marlys Miller, TOURS CAPTAIN.C[employer]ER [employer]ON [address] [place] [address] Tie Loader Internal Medicine 03/04/24 Consumer Relations Complaint Clerk Relationship Specialty Start Date End Date Giovanni Persaud MD [address] [facility], [place] [address] PCP - General 03/07/02 Marlys Miller, TOURS CAPTAIN.C[employer]ER [employer] MASON [address] [place], [place] [address] Tie Loader Internal Medicine 03/04/24 Team Status: Inactive Member Role Status Dates Dr. Giovanni Persaud MD Primary Care Provider Active Start: August 27, 2024 End: August 27, 2024 Dana BARRIENTOS, PA Attending Provider Active Start: August 27, 2024 End: August 27, 2024 Dana BARRIENTOS, PA Referring Provider Active Start: August 27, 2024 End: August 27, 2024 Team Status: Active Member Role Status Dates Dr. Giovanni Persaud MD Primary Care Provider Active Team Status: Inactive Member Role Status Dates Dr. Giovanni Persaud MD Primary Care Provider Active Start: September 03, 2024 End: September 03, 2024 Dr. 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 03/04/24 Reason for Visit (unrecogniz [...] TIME W/IMAGE COMPLETE Giovanni Persaud MD [address] [place] [address] [place] [id number] Referral ID Status Reason Start Date Expiration Date V isits Requested Visits Authorized [id number] Closed Auto-Generate d Referral 06/09/2022 07/09/2023 1 [...] section and content) DATE CREATED AUTHOR 06/20/2023 [facility] nter DATE CREATED AUTHOR AUTHOR'S ORGANIZ ATION 09/03/2024 [facility] DATE CREATED AUTHOR AUTHOR'S ORGANIZ ATION 11/23/2024 [facility] FOR RECORDS PERTAINING TO PATIENTS WHO [...] BE BASED ON THE PRIMARY CLINICAL RECORDS. [employer] provides no warranty or guarantee of the accuracy or completeness of information in this document.
[2025-03-06 08:17] LABS: AST(SGOT) 28 U/L (<=37); Alanine Aminotransfer ALT/SGPT 21 U/L (<=46); Albumin, Serum 3.8 g/dL (3.4-4.8); Alkaline Phosphatase 66 U/L (40-129); Bilirubin, Direct 0.66 mg/dL (0.00-0.30); Cholesterol 135 mg/dL (<=200); Globulin 2.6 g/dL (2.2-4.2); Low Density Lipoprotein Calc. 69 mg/dL; Triglycerides 78 mg/dL; Very Low Density Lipoprotein 16 mg/dL (5-40); cholesterol:hdl ratio screen 2.65
== END | disposition home or self-care (01) ==
LOC: LAB 07:04
PROVIDERS: PCP Internal Medicine; Referring Provider Physician Assistant Medical; Visit Provider Physician Assistant Medical
DX: E78.00 Pure hypercholesterolemia, unspecified (principal)
CPT/HCPCS: 36415; 80061; 80076